=== PATIENT | female | born 1935 | race Caucasian/White ===

== ENCOUNTER 2018-07-20 09:41 | Emergency (ER) | payer MEDICARE, BC ==
[2018-07-20 10:03] VITALS: RESP 16; TEMP 97.8
--- NOTE | 2018-07-20 10:13 | ED ---
SOB HPI - General Chief Complaint: Shortness of Breath Stated Complaint: KHANG Time Seen by Provider: 07/20/18 09:54 Source: patient Mode of arrival: wheelchair Limitations: no limitations - History of Present Illness Initial Comments: Patient is an 83-year-old woman who presents to be evaluated for shortness of breath. She states that her breathing has not felt normal for approximately 2 weeks though she notes that it may have been worse over the course of last night. She states that it feels like she has to take of deep breath. The patient does note she saw Dr. Kuhn, her primary physician yesterday, and was told that everything seemed okay. She does note that it feels worse if she exerts herself. She states that when she is just sitting and does not seem so bad. The patient denies any associated symptoms. She has not had fever or chills, sinus congestion or cough. She denies chest pain or palpitations. She denies orthopnea. She denies any leg pain or swelling. She has not noted any change in urination or bowel movements, including no dark tarry or bloody stools. MD Complaint: shortness of breath Onset/Timin -: week(s) Consistency: constant Improves With: rest Worsens With: exertion Associated Symptoms: denies other symptoms Treatments Prior to Arrival: none - Related Data Home Medications Medication Instructions Recorded Confirmed Cyanocobalamin [Vitamin B-12] 500 mcg PO DAILY 10/03/13 07/20/18 Aspirin [Adult Low Dose Aspirin EC] 81 mg PO BID 01/10/16 07/20/18 Furosemide [Lasix] 60 mg PO DAILY 03/16/16 07/20/18 Levothyroxine Sodium [Synthroid] 68.5 mcg PO Q48H 03/16/16 07/20/18 ALPRAZolam [Xanax] 0.25 mg PO Q6H PRN 07/20/18 07/20/18 Albuterol Nebulized [Ventolin 2.5 mg INHALATION RT-Q4H PRN 07/20/18 07/20/18 Nebulized] Allopurinol [Zyloprim] 300 mg PO DAILY 07/20/18 07/20/18 Cholecalciferol [Vitamin D3] 1,000 unit PO DAILY 07/20/18 07/20/18 Escitalopram [Lexapro] 10 mg PO DAILY 07/20/18 07/20/18 Levothyroxine Sodium [Synthroid] 137 mcg PO Q48H 07/20/18 07/20/18 Metoprolol Tartrate [Lopressor] 75 mg PO BID 07/20/18 07/20/18 Nitroglycerin Sl Tabs [Nitrostat] 0.4 mg SUBLINGUAL Q5M PRN 07/20/18 07/20/18 Allergies Allergy/AdvReac Type Severity Reaction Status Date / Time [id number] Reductase Allergy Unknown Verified 07/20/18 09:46 Inhibitor Review of Systems ROS Statement: Those systems with pertinent positive or pertinent negative responses have been documented in the HPI. ROS Other: All systems not noted in ROS Statement are negative. Constitutional: Denies: fever, chills, weakness Respiratory: Reports: dyspnea. Denies: cough, wheezes, hemoptysis Cardiovascular: Reports: dyspnea on exertion. Denies: chest pain, palpitations , orthopnea, edema, syncope Gastrointestinal: Denies: abdominal pain, nausea, vomiting, melena, hematochezia Genitourinary: Denies: dysuria, hematuria Musculoskeletal: Denies: back pain Skin: Denies: rash Neurological: Denies: headache, weakness Past Medical History Past Medical History: Atrial Fibrillation, Coronary Artery Disease (CAD), Chest Pain / Angina, COPD, GERD/Reflux, Hyperlipidemia, Myocardial Infarction (non Q- wave), Osteoarthritis (OA), Pneumonia Additional Past Medical History / Comment(s): Recent fall with L rib fx, neuropathy bilateral feet, gout bilateral feet, back pain, sciatica, scoliosis, DJD, hypothyroid, anemia r/t epistaxis, Last Myocardial Infarction Date:: 2012 History of Any Multi-Drug Resistant Organisms: None Reported Past Surgical History: Appendectomy, Back Surgery, Cardiac Ablation, Cholecystectomy, Coronary Bypass/CABG, Heart Catheterization With Stent, Hysterectomy Additional Past Surgical History / Comment(s): laminectomy, Nasal Cauterization 10/01/13, heart stents x's 4 or 5, CABG 4 vessek 1993, LOW, colonoscopy with benign polypectomy, D&C, bilateral cataract removal, R breast benign bx. Past Anesthesia/Blood Transfusion Reactions: Previous Problems w/ Anesthesia Additional Past Anesthesia/Blood Transfusion Reaction / Comment(s): Pt received blood 02/07/12 without reaction after epistaxis. Date of Last Stent Placement:: 03/2013 Past Psychological History: Anxiety, Depression Smoking Status: Former smoker Past Alcohol Use History: Daily Past Drug Use History: None Reported - Past Family History Mother Additional Family Medical History / Comment(s): Mother was a heavy drinker. She lived to be in her 80's Father Family Medical History: No Reported History Additional Family Medical History / Comment(s): Father lived to be in his 80's General Exam Limitations: no limitations General appearance: alert, in no apparent distress Head exam: Present: atraumatic, normocephalic Eye exam: Present: normal appearance. Absent: scleral icterus, conjunctival injection ENT exam: Present: normal oropharynx Respiratory exam: Present: normal lung sounds bilaterally. Absent: respiratory distress, wheezes, rales, rhonchi, stridor Cardiovascular Exam: Present: regular rate, irregular rhythm, normal heart sounds. Absent: systolic murmur, diastolic murmur, rubs, gallop GI/Abdominal exam: Present: soft. Absent: distended, tenderness, guarding, rebound Extremities exam: Present: normal inspection, normal capillary refill. Absent: pedal edema, calf tenderness Back exam: Present: normal inspection. Absent: CVA tenderness (R), CVA tenderness (L) Neurological exam: Present: alert Skin exam: Present: warm, dry, intact, normal color. Absent: rash Course Vital Signs 07/20/18 07/20/18 09:42 10:02 Temperature 97.3 F L 97.8 F Pulse Rate 80 75 Respiratory 24 16 Rate Blood Pressure 112/57 106/62 O2 Sat by Pulse 95 96 Oximetry Medical Decision Making - Lab Data Result diagrams: 07/20/18 10:20 07/20/18 10:20 Lab Results 07/20/18 07/20/18 07/20/18 Range/Units 10:20 10:20 10:20 WBC 7.8 (3.8-10.6) k/uL RBC 4.01 (3.80-5.40) m/uL Hgb 12.6 (11.4-16.0) gm/dL Hct 40.8 (34.0-46.0) % MCV 101.7 H (80.0-100.0) fL MCH 31.4 (25.0-35.0) pg MCHC 30.9 L (31.0-37.0) g/dL RDW 16.3 H (11.5-15.5) % Plt Count 247 (150-450) k/uL Neutrophils % 75 % Lymphocytes % 15 % Monocytes % 5 % Eosinophils % 3 % Basophils % 1 % Neutrophils # 5.9 (1.3-7.7) k/uL Lymphocytes # 1.2 (1.0-4.8) k/uL Monocytes # 0.4 (0-1.0) k/uL Eosinophils # 0.2 (0-0.7) k/uL Basophils # 0.1 (0-0.2) k/uL Hypochromasia Moderate Anisocytosis Slight Macrocytosis Slight PT 9.6 (9.0-12.0) sec INR 0.9 (<1.2) APTT 24.3 (22.0-30.0) sec D-Dimer 0.77 H (<0.60) mg/L FEU Sodium 141 (137-145) mmol/L Potassium 3.9 (3.5-5.1) mmol/L Chloride 104 (98-107) mmol/L Carbon Dioxide 31 H (22-30) mmol/L Anion Gap 6 mmol/L BUN 23 H (7-17) mg/dL Creatinine 1.27 H (0.52-1.04) mg/dL Est GFR (CKD-EPI)AfAm 45 (>60 ml/min/1.73 sqM) Est GFR (CKD-EPI)NonAf 39 (>60 ml/min/1.73 sqM) Glucose 100 H (74-99) mg/dL Calcium 9.7 (8.4-10.2) mg/dL Magnesium 2.3 (1.6-2.3) mg/dL Total Bilirubin 0.6 (0.2-1.3) mg/dL AST 23 (14-36) U/L ALT 26 (9-52) U/L Alkaline Phosphatase 88 (38-126) U/L Troponin I (0.000-0.034) ng/mL NT-Pro-B Natriuret Pep pg/mL Total Protein 6.2 L (6.3-8.2) g/dL Albumin 3.6 (3.5-5.0) g/dL Urine Color Urine Appearance (Clear) Urine pH (5.0-8.0) Ur Specific Bison (1.001-1.035) Urine Protein (Negative) Urine Glucose (UA) (Negative) Urine Ketones (Negative) Urine Blood (Negative) Urine Nitrite (Negative) Urine Bilirubin (Negative) Urine Urobilinogen (<2.0) mg/dL Ur Leukocyte Esterase (Negative) Urine RBC (0-5) /hpf Urine WBC (0-5) /hpf Ur Squamous Epith Cells (0-4) /hpf Urine Bacteria (None) /hpf 07/20/18 07/20/18 07/20/18 Range/Units 10:20 10:20 10:20 WBC (3.8-10.6) k/uL RBC (3.80-5.40) m/uL Hgb (11.4-16.0) gm/dL Hct (34.0-46.0) % MCV (80.0-100.0) fL MCH (25.0-35.0) pg MCHC (31.0-37.0) g/dL RDW (11.5-15.5) % Plt Count (150-450) k/uL Neutrophils % % Lymphocytes % % Monocytes % % Eosinophils % % Basophils % % Neutrophils # (1.3-7.7) k/uL Lymphocytes # (1.0-4.8) k/uL Monocytes # (0-1.0) k/uL Eosinophils # (0-0.7) k/uL Basophils # (0-0.2) k/uL Hypochromasia Anisocytosis Macrocytosis PT (9.0-12.0) sec INR (<1.2) APTT (22.0-30.0) sec D-Dimer (<0.60) mg/L FEU Sodium (137-145) mmol/L Potassium (3.5-5.1) mmol/L Chloride (98-107) mmol/L Carbon Dioxide (22-30) mmol/L Anion Gap mmol/L BUN (7-17) mg/dL Creatinine (0.52-1.04) mg/dL Est GFR (CKD-EPI)AfAm (>60 ml/min/1.73 sqM) Est GFR (CKD-EPI)NonAf (>60 ml/min/1.73 sqM) Glucose (74-99) mg/dL Calcium (8.4-10.2) mg/dL Magnesium (1.6-2.3) mg/dL Total Bilirubin (0.2-1.3) mg/dL AST (14-36) U/L ALT (9-52) U/L Alkaline Phosphatase (38-126) U/L Troponin I 0.030 (0.000-0.034) ng/mL NT-Pro-B Natriuret Pep 1730 pg/mL Total Protein (6.3-8.2) g/dL Albumin (3.5-5.0) g/dL Urine Color Colorless Urine Appearance Clear (Clear) Urine pH 6.5 (5.0-8.0) Ur Specific Bison 1.005 (1.001-1.035) Urine Protein Negative (Negative) Urine Glucose (UA) Negative (Negative) Urine Ketones Negative (Negative) Urine Blood Negative (Negative) Urine Nitrite Negative (Negative) Urine Bilirubin Negative (Negative) Urine Urobilinogen <2.0 (<2.0) mg/dL Ur Leukocyte Esterase Small H (Negative) Urine RBC 1 (0-5) /hpf Urine WBC <1 (0-5) /hpf Ur Squamous Epith Cells 1 (0-4) /hpf Urine Bacteria Many H (None) /hpf - EKG Data -: EKG Interpreted by Nh EKG shows normal: axis (Right axis deviation), intervals (Normal), QRS complexes (Normal) Interpretation: nonspecific ST-T wave changes, other (Atrial fibrillation) Disposition Clinical Impression: Congestive heart failure Disposition: HOME SELF-CARE Condition: Fair Instructions (If sedation given, give patient instructions): Heart Failure (DC) Additional Instructions: As we discussed, follow-up with her doctor. If there is any worsening or if her symptoms recur, return to the emergency department. Is patient prescribed a controlled substance at d/c from ED?: No Referrals: Tiera Kuhn MD [Primary Care Provider] - 1-2 days
[2018-07-20 10:34] LABS: Anisocytosis Slight; Basophils # (A) 0.1 k/uL (0-0.2); Basophils % (A) 1 %; Eosinophils # (A) 0.2 k/uL (0-0.7); Eosinophils % (A) 3 %; HCT 40.8 % (34.0-46.0); HGB 12.6 gm/dL (11.4-16.0); Hypochromasia Moderate; Lymphocytes # (A) 1.2 k/uL (1.0-4.8); Lymphocytes % (A) 15 %; MCH 31.4 pg (25.0-35.0); MCHC 30.9 g/dL (31.0-37.0); MCV 101.7 fL (80.0-100.0); Macrocytosis Slight; Mean Platelet Volume 7.1; Monocytes # (A) 0.4 k/uL (0-1.0); Monocytes % (A) 5 %; Neutrophils # (A) 5.9 k/uL (1.3-7.7); Neutrophils % (A) 75 %; Platelet Count 247 k/uL (150-450); RBC 4.01 m/uL (3.80-5.40); RDW 16.3 % (11.5-15.5); WBC 7.8 k/uL (3.8-10.6)
[2018-07-20 10:52] LABS: Albumin 3.6 g/dL (3.5-5.0); Calcium 9.7 mg/dL (8.4-10.2); Magnesium 2.3 mg/dL (1.6-2.3); Potassium 3.9 mmol/L (3.5-5.1); Total Bilirubin 0.6 mg/dL (0.2-1.3); Total Protein 6.2 g/dL (6.3-8.2)
--- NOTE | 2018-07-20 10:53 | XR ---
EXAMINATION TYPE: XR chest 2V DATE OF EXAM: 07/20/2018 COMPARISON: Chest x-ray March 19, 2016 HISTORY: History of COPD with shortness of breath TECHNIQUE: Frontal and lateral views of the chest are obtained. FINDINGS: Elevated and eventrated anterior aspect right hemidiaphragm is redemonstrated There is cash reconciliation specialist alanna parenchymal change without suspicious focal air space opacity, pleural effusion, or pneumothorax seen. Overlying sternal wires and mediastinal clips are redemonstrated. The cardiac silhouette size i s mildly enlarged. The osseous structures are demineralized. Bilateral glenohumeral joint arthropat hy is present. IMPRESSION: Chronic changes and cardiomegaly without acute pulmonary process.
[2018-07-20 10:59] LABS: Appearance,Urine Clear (Clear); Bacteria,Urine Many /hpf; Bilirubin,Urine Negative (Negative); Blood,Urine Negative (Negative); Color,Urine Colorless; Glucose,Urine (UA) Negative (Negative); Ketones,Urine Negative (Negative); Leukocyte Esterase,Urine Small (Negative); Nitrite,Urine Negative (Negative); PH, Urine 6.5 (5.0-8.0); Protein,Urine Negative (Negative); RBC,Urine 1 /hpf (0-5); Specific Gravity,Urine 1.005 (1.001-1.035); Squamous Epithelial Cell,Urine 1 /hpf (0-4); Urobilinogen,Urine <2.0 mg/dL (<2.0); WBC,Urine <1 /hpf (0-5)
[2018-07-20 11:16] LABS: INR 0.9 (<1.2); Partial Thromboplastin Time 24.3 sec (22.0-30.0); Prothrombin Time 9.6 sec (9.0-12.0)
[2018-07-20 11:20] LABS: D-Dimer 0.77 mg/L FEU (<0.60)
[2018-07-20] MEDS ORDERED: FUROSEMIDE 10 MG/ML 4 ML VIAL IV STA (11:30)
[2018-07-20 12:06] VITALS: BP 120/64; PULSE 68
== END 2018-07-20 12:15 | disposition home or self-care (01) ==
LOC: EC 09:41
DX: I50.9 Heart failure, unspecified (principal); I48.91 Unspecified atrial fibrillation; R94.31 Abnormal electrocardiogram [ECG] [EKG]; I25.119 Atherosclerotic heart disease of native coronary artery with unspecified angina pectoris; J44.9 Chronic obstructive pulmonary disease, unspecified; E03.9 Hypothyroidism, unspecified; M19.90 Unspecified osteoarthritis, unspecified site; I25.2 Old myocardial infarction; M10.9 Gout, unspecified; F32.9 Major depressive disorder, single episode, unspecified; F41.9 Anxiety disorder, unspecified; Z87.891 Personal history of nicotine dependence; Z88.8 Allergy status to other drugs, medicaments and biological substances; Z79.82 Long term (current) use of aspirin; Z79.890 Hormone replacement therapy; Z79.899 Other long term (current) drug therapy; Z95.1 Presence of aortocoronary bypass graft; Z95.5 Presence of coronary angioplasty implant and graft; Z98.890 Other specified postprocedural states
CPT/HCPCS: 36415; 71046; 80053; 81001; 83735; 83880; 84484; 85025; 85379; 85610; 85730; 93005; 96374; 99285

== ENCOUNTER 2018-07-20 19:06 | Inpatient (IN) | payer MEDICARE, BC ==
[2018-07-20 20:46] LABS: Anisocytosis Slight; Basophils # (A) 0.1 k/uL (0-0.2); Basophils % (A) 1 %; Eosinophils # (A) 0.3 k/uL (0-0.7); Eosinophils % (A) 3 %; HCT 42.7 % (34.0-46.0); HGB 13.2 gm/dL (11.4-16.0); Hypochromasia Moderate; Lymphocytes # (A) 1.5 k/uL (1.0-4.8); Lymphocytes % (A) 15 %; MCH 31.4 pg (25.0-35.0); MCHC 30.8 g/dL (31.0-37.0); MCV 101.8 fL (80.0-100.0); Macrocytosis Slight; Monocytes # (A) 0.5 k/uL (0-1.0); Monocytes % (A) 5 %; Neutrophils # (A) 7.3 k/uL (1.3-7.7); Neutrophils % (A) 75 %; Platelet Count 252 k/uL (150-450); RBC 4.19 m/uL (3.80-5.40); RDW 16.3 % (11.5-15.5); WBC 9.8 k/uL (3.8-10.6)
[2018-07-20 20:54] LABS: Albumin 3.9 g/dL (3.5-5.0); Calcium 9.7 mg/dL (8.4-10.2); Magnesium 2.2 mg/dL (1.6-2.3); Potassium 3.9 mmol/L (3.5-5.1); Total Bilirubin 0.6 mg/dL (0.2-1.3); Total Protein 6.6 g/dL (6.3-8.2)
[2018-07-20 21:02] LABS: INR 0.9 (<1.2); Partial Thromboplastin Time 24.3 sec (22.0-30.0); Prothrombin Time 9.9 sec (9.0-12.0)
[2018-07-20] MEDS ORDERED: FUROSEMIDE 10 MG/ML 4 ML VIAL IV STA (21:33)
[2018-07-20] MEDS ORDERED: NALOXONE 0.4 MG/ML 1 ML VIAL IV PRN (22:04)
--- NOTE | 2018-07-20 22:17 | ED ---
General Adult HPI - General Chief complaint: Shortness of Breath Stated complaint: KHANG Time Seen by Provider: 07/20/18 20:29 Source: patient, family, RN notes reviewed, old records reviewed Mode of arrival: wheelchair Limitations: no limitations - History of Present Illness Initial comments: 83-year-old female presents emergency Department with chief complaint of dyspnea. Patient was seen in the emergency department earlier today, diagnosed with congestive heart failure, treated with IV Lasix and requested to be discharged home. She resents with similar symptoms of dyspnea, weight gain. She has history of congestive heart failure and atrial fibrillation. She does report bilateral lower extremity edema. Denies chest pain. Denies abdominal pain. - Related Data Home Medications Medication Instructions Recorded Confirmed Cyanocobalamin [Vitamin B-12] 500 mcg PO DAILY 10/03/13 07/20/18 Aspirin [Adult Low Dose Aspirin EC] 81 mg PO BID 01/10/16 07/20/18 Furosemide [Lasix] 60 mg PO DAILY 03/16/16 07/20/18 Levothyroxine Sodium [Synthroid] 68.5 mcg PO Q48H 03/16/16 07/20/18 ALPRAZolam [Xanax] 0.25 mg PO Q6H PRN 07/20/18 07/20/18 Albuterol Nebulized [Ventolin 2.5 mg INHALATION RT-Q4H PRN 07/20/18 07/20/18 Nebulized] Allopurinol [Zyloprim] 300 mg PO DAILY 07/20/18 07/20/18 Cholecalciferol [Vitamin D3] 1,000 unit PO DAILY 07/20/18 07/20/18 Escitalopram [Lexapro] 10 mg PO DAILY 07/20/18 07/20/18 Levothyroxine Sodium [Synthroid] 137 mcg PO Q48H 07/20/18 07/20/18 Metoprolol Tartrate [Lopressor] 75 mg PO BID 07/20/18 07/20/18 Nitroglycerin Sl Tabs [Nitrostat] 0.4 mg SUBLINGUAL Q5M PRN 07/20/18 07/20/18 Allergies Allergy/AdvReac Type Severity Reaction Status Date / Time [id number] Reductase Allergy Unknown Verified 07/20/18 20:54 Inhibitor Review of Systems ROS Statement: Those systems with pertinent positive or pertinent negative responses have been documented in the HPI. ROS Other: All systems not noted in ROS Statement are negative. Past Medical History Past Medical History: Atrial Fibrillation, Coronary Artery Disease (CAD), Chest Pain / Angina, COPD, GERD/Reflux, Hyperlipidemia, Myocardial Infarction (non Q- wave), Osteoarthritis (OA), Pneumonia Additional Past Medical History / Comment(s): Recent fall with L rib fx, neuropathy bilateral feet, gout bilateral feet, back pain, sciatica, scoliosis, DJD, hypothyroid, anemia r/t epistaxis, Last Myocardial Infarction Date:: 2012 History of Any Multi-Drug Resistant Organisms: None Reported Past Surgical History: Appendectomy, Back Surgery, Cardiac Ablation, Cholecystectomy, Coronary Bypass/CABG, Heart Catheterization With Stent, Hysterectomy Additional Past Surgical History / Comment(s): laminectomy, Nasal Cauterization 10/01/13, heart stents x's 4 or 5, CABG 4 vessek 1993, LOW, colonoscopy with benign polypectomy, D&C, bilateral cataract removal, R breast benign bx. Past Anesthesia/Blood Transfusion Reactions: Previous Problems w/ Anesthesia Additional Past Anesthesia/Blood Transfusion Reaction / Comment(s): Pt received blood 02/07/12 without reaction after epistaxis. Date of Last Stent Placement:: 03/2013 Past Psychological History: Anxiety, Depression Smoking Status: Former smoker Past Alcohol Use History: Daily Past Drug Use History: None Reported - Past Family History Mother Additional Family Medical History / Comment(s): Mother was a heavy drinker. She lived to be in her 80's Father Family Medical History: No Reported History Additional Family Medical History / Comment(s): Father lived to be in his 80's General Exam Limitations: no limitations General appearance: alert, in no apparent distress Head exam: Present: atraumatic, normocephalic Eye exam: Present: normal appearance, PERRL Respiratory exam: Present: rales. Absent: respiratory distress, wheezes Cardiovascular Exam: Present: regular rate, irregular rhythm GI/Abdominal exam: Present: soft. Absent: distended, tenderness, guarding Extremities exam: Present: pedal edema Neurological exam: Present: alert, oriented X3 Psychiatric exam: Present: normal affect, normal mood Skin exam: Present: warm, dry, intact. Absent: cyanosis, diaphoretic Course Vital Signs 07/20/18 07/20/18 07/20/18 20:01 20:52 21:05 Temperature 98.3 F Pulse Rate 79 70 70 Respiratory 18 18 20 Rate Blood Pressure 107/64 124/76 114/67 O2 Sat by Pulse 94 L 97 95 Oximetry EKG Findings - EKG Comments: EKG Findings:: EKG: Atrial fibrillation, rate of 74, QRS duration 94, QTC 412, no ST segment elevation or depression Medical Decision Making - Medical Decision Making 83-year-old female presenting for reevaluation of congestive heart failure. X- ray from earlier in the day reviewed, does show cardiomegaly, no edis pulmonary edema. Patient has normal white blood cell count, stable hemoglobin, creatinine mildly elevated 1.44 BNP elevated 2000 470. Patient started on IV Lasix. She will be admitted for diuresis. Cardiology placed on consult. Echo will be obtained. - Lab Data Result diagrams: 07/20/18 20:33 07/20/18 20:33 Lab Results 07/20/18 07/20/18 07/20/18 Range/Units 20:33 20:33 20:33 WBC 9.8 (3.8-10.6) k/uL RBC 4.19 (3.80-5.40) m/uL Hgb 13.2 (11.4-16.0) gm/dL Hct 42.7 (34.0-46.0) % MCV 101.8 H (80.0-100.0) fL MCH 31.4 (25.0-35.0) pg MCHC 30.8 L (31.0-37.0) g/dL RDW 16.3 H (11.5-15.5) % Plt Count 252 (150-450) k/uL Neutrophils % 75 % Lymphocytes % 15 % Monocytes % 5 % Eosinophils % 3 % Basophils % 1 % Neutrophils # 7.3 (1.3-7.7) k/uL Lymphocytes # 1.5 (1.0-4.8) k/uL Monocytes # 0.5 (0-1.0) k/uL Eosinophils # 0.3 (0-0.7) k/uL Basophils # 0.1 (0-0.2) k/uL Hypochromasia Moderate Anisocytosis Slight Macrocytosis Slight PT (9.0-12.0) sec INR (<1.2) APTT (22.0-30.0) sec Sodium 140 (137-145) mmol/L Potassium 3.9 (3.5-5.1) mmol/L Chloride 102 (98-107) mmol/L Carbon Dioxide 32 H (22-30) mmol/L Anion Gap 6 mmol/L BUN 27 H (7-17) mg/dL Creatinine 1.44 H (0.52-1.04) mg/dL Est GFR (CKD-EPI)AfAm 39 (>60 ml/min/1.73 sqM) Est GFR (CKD-EPI)NonAf 34 (>60 ml/min/1.73 sqM) Glucose 103 H (74-99) mg/dL Calcium 9.7 (8.4-10.2) mg/dL Magnesium 2.2 (1.6-2.3) mg/dL Total Bilirubin 0.6 (0.2-1.3) mg/dL AST 24 (14-36) U/L ALT 29 (9-52) U/L Alkaline Phosphatase 108 (38-126) U/L Troponin I (0.000-0.034) ng/mL NT-Pro-B Natriuret Pep 2470 pg/mL Total Protein 6.6 (6.3-8.2) g/dL Albumin 3.9 (3.5-5.0) g/dL 07/20/18 07/20/18 Range/Units 20:33 20:33 WBC (3.8-10.6) k/uL RBC (3.80-5.40) m/uL Hgb (11.4-16.0) gm/dL Hct (34.0-46.0) % MCV (80.0-100.0) fL MCH (25.0-35.0) pg MCHC (31.0-37.0) g/dL RDW (11.5-15.5) % Plt Count (150-450) k/uL Neutrophils % % Lymphocytes % % Monocytes % % Eosinophils % % Basophils % % Neutrophils # (1.3-7.7) k/uL Lymphocytes # (1.0-4.8) k/uL Monocytes # (0-1.0) k/uL Eosinophils # (0-0.7) k/uL Basophils # (0-0.2) k/uL Hypochromasia Anisocytosis Macrocytosis PT 9.9 (9.0-12.0) sec INR 0.9 (<1.2) APTT 24.3 (22.0-30.0) sec Sodium (137-145) mmol/L Potassium (3.5-5.1) mmol/L Chloride (98-107) mmol/L Carbon Dioxide (22-30) mmol/L Anion Gap mmol/L BUN (7-17) mg/dL Creatinine (0.52-1.04) mg/dL Est GFR (CKD-EPI)AfAm (>60 ml/min/1.73 sqM) Est GFR (CKD-EPI)NonAf (>60 ml/min/1.73 sqM) Glucose (74-99) mg/dL Calcium (8.4-10.2) mg/dL Magnesium (1.6-2.3) mg/dL Total Bilirubin (0.2-1.3) mg/dL AST (14-36) U/L ALT (9-52) U/L Alkaline Phosphatase (38-126) U/L Troponin I 0.023 (0.000-0.034) ng/mL NT-Pro-B Natriuret Pep pg/mL Total Protein (6.3-8.2) g/dL Albumin (3.5-5.0) g/dL Disposition Clinical Impression: Congestive heart failure, Diastolic CHF Disposition: ADMITTED IP TO THIS [facility] Condition: Stable Is patient prescribed a controlled substance at d/c from ED?: No Referrals: Tiera Kuhn MD [Primary Care Provider] - 1-2 days Time of Disposition: 22:17 Decision to Admit Reason: Admit from EC Decision Date: 07/20/18 Decision Time: 22:17
[2018-07-21] MEDS: ACETAMINOPHEN TAB 325 MG TAB PO PRN ×2 (04:47→11:43)
[2018-07-21] MEDS: LEVOTHYROXINE 137 MCG TAB PO SCH (05:38)
[2018-07-21] MEDS: NITROGLYCERIN SL TABS 0.4 MG TAB SUBLINGUAL PRN ×3 (05:46→13:51)
[2018-07-21] MEDS: NITROGLYCERIN OINT 1 INCH/GM PACKET TOPICAL SCH ×3 (07:37→23:25)
[2018-07-21] MEDS: METOPROLOL TARTRATE 50 MG TAB PO SCH ×2 (08:01→20:20)
[2018-07-21] MEDS: ASPIRIN 81 MG PO SCH ×2 (08:03→20:20)
[2018-07-21] MEDS: FUROSEMIDE 10 MG/ML 4 ML VIAL IV SCH ×2 (08:04→20:21)
[2018-07-21 09:09] LABS: Anisocytosis Slight; Basophils # (A) 0.1 k/uL (0-0.2); Basophils % (A) 1 %; Eosinophils # (A) 0.3 k/uL (0-0.7); Eosinophils % (A) 3 %; HCT 38.4 % (34.0-46.0); HGB 12.1 gm/dL (11.4-16.0); Hypochromasia Marked; Lymphocytes # (A) 1.1 k/uL (1.0-4.8); Lymphocytes % (A) 15 %; MCH 32.6 pg (25.0-35.0); MCHC 31.5 g/dL (31.0-37.0); MCV 103.3 fL (80.0-100.0); Macrocytosis Moderate; Mean Platelet Volume 7.2; Monocytes # (A) 0.4 k/uL (0-1.0); Monocytes % (A) 5 %; Neutrophils # (A) 5.5 k/uL (1.3-7.7); Neutrophils % (A) 74 %; Platelet Count 201 k/uL (150-450); RBC 3.72 m/uL (3.80-5.40); RDW 16.2 % (11.5-15.5); WBC 7.4 k/uL (3.8-10.6)
[2018-07-21] MEDS: ESCITALOPRAM 10 MG TAB PO SCH (09:15)
[2018-07-21] MEDS: ALLOPURINOL 300 MG TAB PO SCH (09:15)
[2018-07-21 09:21] LABS: Albumin 3.3 g/dL (3.5-5.0); Calcium 9.4 mg/dL (8.4-10.2); Potassium 4.4 mmol/L (3.5-5.1); Total Bilirubin 0.7 mg/dL (0.2-1.3); Total Protein 5.8 g/dL (6.3-8.2)
--- NOTE | 2018-07-21 09:26 | P.HPIM ---
History of Present Illness H&P Date: 07/21/18 This is a 83-year-old female patient of Dr. Kuhn. Patient presented to ER with complaints of increased shortness of breath. Patient presented to the ER earlier in the day was given IV Lasix and at that time patient requested to be discharged home. Patient reports she went home and did not have any improvement with her shortness of breath. Patient presented back to the emergency room. Patient does have a past medical history of diastolic congestive heart failure, atrial fibrillation which she's not on anticoagulation due to increase risk of bleeding, coronary artery disease, chest pain, GERD, hyperlipidemia, myocardial infarction, osteoarthritis, hypothyroidism, gout, appendectomy, CABG and anxiety. EKG completed showing atrial fibrillation heart rate in the 70s. Chest x-ray completed showing chronic changes and cardiomegaly without acute pulmonary process. BNP 2470. Patient started on IV Lasix and placed on cardiac telemetry. Cardiology service is consulted. 2-D echo has been ordered. Denies chest pain or shortness breath. Patient denies nausea vomiting or diarrhea. Patient denies any urinary burning or frequency Review of Systems Please refer to HPI otherwise unremarkable Past Medical History Past Medical History: Atrial Fibrillation, Coronary Artery Disease (CAD), Chest Pain / Angina, COPD, GERD/Reflux, Hyperlipidemia, Myocardial Infarction (non Q- wave), Osteoarthritis (OA), Pneumonia Additional Past Medical History / Comment(s): recent fall with L rib fx, neuropathy bilateral feet, gout bilateral feet, back pain, sciatica, scoliosis, DJD, hypothyroid, anemia r/t epistaxis, Last Myocardial Infarction Date:: 2012 History of Any Multi-Drug Resistant Organisms: None Reported Past Surgical History: Appendectomy, Back Surgery, Cardiac Ablation, Cholecystectomy, Coronary Bypass/CABG, Heart Catheterization With Stent, Hysterectomy Additional Past Surgical History / Comment(s): laminectomy, Nasal Cauterization 10/01/13, heart stents x's 4 or 5, CABG 4 vessek 1993, LOW, colonoscopy with benign polypectomy, D&C, bilateral cataract removal, R breast benign bx. Past Anesthesia/Blood Transfusion Reactions: Previous Problems w/ Anesthesia Additional Past Anesthesia/Blood Transfusion Reaction / Comment(s): Pt received blood 02/07/12 without reaction after epistaxis. Date of Last Stent Placement:: 03/2013 Past Psychological History: Anxiety, Depression Additional Psychological History / Comment(s): Pt resides alone. She uses a cane to ambulate. She drives. She states she has increased depression lately but is not suicidal- no thoughts or plans. She has been on medication for anxiety and depression in the ast but did not like the way they made her feel or was on them for a week and didn't think they were working. Smoking Status: Former smoker Past Alcohol Use History: Daily Additional Past Alcohol Use History / Comment(s): Pt has a glass of wine each evening. She started smoking in 1956 and quit in 1986. Past Drug Use History: None Reported - Past Family History Mother Additional Family Medical History / Comment(s): Mother was a heavy drinker. She lived to be in her 80's Father Family Medical History: No Reported History Additional Family Medical History / Comment(s): Father lived to be in his 80's Medications and Allergies Home Medications Medication Instructions Recorded Confirmed Type Cyanocobalamin [Vitamin B-12] 500 mcg PO DAILY 10/03/13 07/20/18 History Aspirin [Adult Low Dose Aspirin EC] 81 mg PO BID 01/10/16 07/20/18 History Furosemide [Lasix] 60 mg PO DAILY 03/16/16 07/20/18 History Levothyroxine Sodium [Synthroid] 68.5 mcg PO Q48H 03/16/16 07/20/18 History ALPRAZolam [Xanax] 0.25 mg PO Q6H PRN 07/20/18 07/20/18 History Albuterol Nebulized [Ventolin 2.5 mg INHALATION RT-Q4H PRN 07/20/18 07/20/18 History Nebulized] Allopurinol [Zyloprim] 300 mg PO DAILY 07/20/18 07/20/18 History Cholecalciferol [Vitamin D3] 1,000 unit PO DAILY 07/20/18 07/20/18 History Escitalopram [Lexapro] 10 mg PO DAILY 07/20/18 07/20/18 History Levothyroxine Sodium [Synthroid] 137 mcg PO Q48H 07/20/18 07/20/18 History Metoprolol Tartrate [Lopressor] 75 mg PO BID 07/20/18 07/20/18 History Nitroglycerin Sl Tabs [Nitrostat] 0.4 mg SUBLINGUAL Q5M PRN 07/20/18 07/20/18 History Allergies Allergy/AdvReac Type Severity Reaction Status Date / Time [id number]-[id number] Reductase Allergy Unknown Verified 07/20/18 20:54 Inhibitor Physical Exam Vitals: Vital Signs Temp Pulse Pulse Resp BP BP Pulse Ox 07/21/18 07:30 18 07/21/18 07:00 97.7 F 90 18 100/62 95 07/21/18 05:45 97.8 F 86 18 122/70 97 07/21/18 00:10 97.6 F 82 18 117/61 95 07/20/18 23:00 97.6 F 74 18 115/61 94 L 07/20/18 22:00 67 20 116/64 97 07/20/18 21:05 70 20 114/67 95 07/20/18 20:52 70 18 124/76 97 07/20/18 20:01 98.3 F 79 18 107/64 94 L Intake and Output 07/20/18 07/21/18 07/21/18 22:59 06:59 14:59 Intake Total 240 Balance 240 Intake: Oral 240 Other: # Voids 1 Weight 79.379 kg 81.5 kg Head normocephalic Neck supple Lungs diminished bilaterally Heart regular rate and rhythm S1-S2, no rub or gallop Abdomen is soft nontender nondistended positive bowel sounds no hepatosplenomegaly Extremities no edema Neuro alert and orientated to 3 Results CBC & Chem 7: 07/21/18 08:40 07/20/18 20:33 Labs: Abnormal Lab Results - Last 24 Hours (Table) 07/20/18 07/20/18 07/21/18 Range/Units 20:33 20:33 08:40 RBC 3.72 L (3.80-5.40) m/uL MCV 101.8 H 103.3 H (80.0-100.0) fL MCHC 30.8 L (31.0-37.0) g/dL RDW 16.3 H 16.2 H (11.5-15.5) % Carbon Dioxide 32 H (22-30) mmol/L BUN 27 H (7-17) mg/dL Creatinine 1.44 H (0.52-1.04) mg/dL Glucose 103 H (74-99) mg/dL Thrombosis Risk Factor Assmnt - Choose All That Apply Each Factor Represents 1 point: Abnormal pulmonary function (COPD) Each Risk Factor Represents 3 Points: Age 75 years or older Thrombosis Risk Factor Assessment Total Risk Factor Score: 4 Thrombosis Risk Factor Assessment Level: Moderate Risk Assessment and Plan Assessment: 1. Dyspnea related to acute on chronic diastolic congestive heart failure. Chest x-ray completed in the ER showing chronic changes and cardiomegaly without acute pulmonary process. IV Lasix has been started. Cardiology services have been consulted and 2-D echo ordered 2. History of coronary artery disease with history of CABG and stent placement 3. Chronic atrial fibrillation heart rate well-controlled. Patient not on anticoagulation high-risk of bleeding in the past 4. History of essential hypertension 5. Hypothyroidism. Synthroid resumed 6. Acute on chronic kidney disease. Creatinine 1.44 we'll continue to monitor closely 7. History of hyperlipidemia 8. History of GERD 9. History of COPD. 10. History of anxiety and depression DVT prophylaxis LOVENOX. GI prophylaxis Pepcid Time with Patient: Greater than 30 (Greater than 60% of the total time spent in counseling and coordination of care. I performed an examination of the patient and discussed their management with the Nurse Practitioner. I have reviewed the Nurse Practitioner's notes and agree with the documented findings and plan of care)
[2018-07-21] MEDS: CHOLECALCIFEROL 1,000 UNIT TAB PO SCH (11:43)
[2018-07-21] MEDS: CYANOCOBALAMIN 500 MCG TAB PO SCH (11:43)
[2018-07-21] MEDS: ALBUTEROL NEBULIZED 2.5 MG/3 ML INHALATION PRN (11:51)
[2018-07-21 13:19] VITALS: BMI 31.8
[2018-07-21] MEDS: FAMOTIDINE 20 MG TAB PO SCH (13:52)
--- NOTE | 2018-07-21 19:26 | ECHOF ---
Referral Reason:chf MEASUREMENTS -------- HEIGHT: 160.0 cm WEIGHT: 81.2 kg BP: IVSd: 1.4 cm (0.6 - 1.1) LVIDd: 4.1 cm (3.9 - 5.3) LVPWd: 1.5 cm (0.6 - 1.1) IVSs: 1.5 cm LVIDs: 3.6 cm LVPWs: 1.5 cm LA Diam: 5.1 cm (2.7 - 3.8) LAESV Index (A-L): 51.90 ml/m Ao Diam: 3.3 cm (2.0 - 3.7) AV Cusp: 1.4 cm (1.5 - 2.6) LA Diam: 5.2 cm (2.7 - 3.8) MV EXCURSION: 18.742 mm (> 18.000) MV EF SLOPE: 138 mm/s (70 - 150) EPSS: 0.6 cm MV E Ruben: 1.25 m/s MV DecT: 164 ms MV A Ruben: 0.52 m/s MV E/A Ratio: 2.41 RAP: 5.00 mmHg RVSP: 37.39 mmHg FINDINGS -------- Sinus rhythm. This was a technically adequate study. The left ventricular size is normal. There is moderate concentric left ventricular hypertrophy. O verall left ventricular systolic function is normal with, an EF between 55 - 60 %. The right ventricle is normal in size. The left atrium is markedly dilated. LA is severely dilated >40 ml/m2 The right atrial size is normal. There is mild aortic valve sclerosis. There is no evidence of aortic regurgitation. The mitral valve leaflets are mildly thickened. Mild mitral annular calcification present. Modera te mitral regurgitation is present. Mild tricuspid regurgitation present. There is no evidence of pulmonary hypertension. The right v entricular systolic pressure, as measured by Doppler, is 37.39mmHg. The pulmonic valve was not well visualized. The aortic root size is normal. There is no pericardial effusion. CONCLUSIONS -------- 1. The left ventricular size is normal. 2. There is moderate concentric left ventricular hypertrophy. 3. Overall left ventricular systolic function is normal with, an EF between 55 - 60 %. 4. The right ventricle is normal in size. 5. The left atrium is markedly dilated. 6. LA is severely dilated >40 ml/m2 7. The right atrial size is normal. 8. There is mild aortic valve sclerosis. 9. The mitral valve leaflets are mildly thickened. 10. Mild mitral annular calcification present. 11. Moderate mitral regurgitation is present. 12. Mild tricuspid regurgitation present. 13. There is no evidence of pulmonary hypertension. 14. The right ventricular systolic pressure, as measured by Doppler, is 37.39mmHg. 15. The pulmonic valve was not well visualized. 16. The aortic root size is normal. 17. There is no pericardial effusion. DIRECTOR SUPPLY CHAIN: Brielle Medellin RDCS
--- NOTE | 2018-07-21 20:09 | P.CRDCN ---
History of Present Illness Consult date: 07/21/18 Chief complaint: Shortness of breath History of present illness: This is a pleasant 83-year-old female patient who follows with Dr. Parada in the office as an outpatient with a past medical history significant for coronary artery disease, chronic persistent atrial fibrillation, hypertension, and dyslipidemia, presented to the hospital complaining of shortness of breath. The patient was in her usual state of health until about a few days ago when she started experiencing exertional dyspnea without orthopnea or PND. No bilateral lower extremities edema. She stated that she has been taking all her medications including her oral Lasix as an outpatient but she was not very compliant with her diet and she has been eating some salt as well as a lot of chocolate lately. She gained significant amount of weight according to her. No chest pain or chest discomfort. No feeling of heart racing or fluttering, dizziness or lightheadedness, or syncope. The EKG showed atrial fibrillation with controlled heart rate and diffuse nonspecific ST or T-wave abnormalities. The cardiac enzymes were checked and came in to be unremarkable. The echocardiogram revealed normal LV function with moderate mitral regurgitation. The patient was admitted to the hospital and she was started on Lasix IV with improvement in her shortness of breath. Please note that the patient is not on any oral anticoagulation for unknown reason at this point. Past Medical History Past Medical History: Atrial Fibrillation, Coronary Artery Disease (CAD), Chest Pain / Angina, COPD, GERD/Reflux, Hyperlipidemia, Myocardial Infarction (non Q- wave), Osteoarthritis (OA), Pneumonia Additional Past Medical History / Comment(s): recent fall with L rib fx, neuropathy bilateral feet, gout bilateral feet, back pain, sciatica, scoliosis, DJD, hypothyroid, anemia r/t epistaxis, Last Myocardial Infarction Date:: 2012 History of Any Multi-Drug Resistant Organisms: None Reported Past Surgical History: Appendectomy, Back Surgery, Cardiac Ablation, Cholecystectomy, Coronary Bypass/CABG, Heart Catheterization With Stent, Hysterectomy Additional Past Surgical History / Comment(s): laminectomy, Nasal Cauterization 10/01/13, heart stents x's 4 or 5, CABG 4 vessek 1993, LOW, colonoscopy with benign polypectomy, D&C, bilateral cataract removal, R breast benign bx. Past Anesthesia/Blood Transfusion Reactions: Previous Problems w/ Anesthesia Additional Past Anesthesia/Blood Transfusion Reaction / Comment(s): Pt received blood 9/17/12 without reaction after epistaxis. Date of Last Stent Placement:: 03/2013 Past Psychological History: Anxiety, Depression Additional Psychological History / Comment(s): Pt resides alone. She uses a cane to ambulate. She drives. She states she has increased depression lately but is not suicidal- no thoughts or plans. She has been on medication for anxiety and depression in the ast but did not like the way they made her feel or was on them for a week and didn't think they were working. Smoking Status: Former smoker Past Alcohol Use History: Daily Additional Past Alcohol Use History / Comment(s): Pt has a glass of wine each evening. She started smoking in 1956 and quit in 1986. Past Drug Use History: None Reported - Past Family History Mother Additional Family Medical History / Comment(s): Mother was a heavy drinker. She lived to be in her 80's Father Family Medical History: No Reported History Additional Family Medical History / Comment(s): Father lived to be in his 80's Medications and Allergies Home Medications Medication Instructions Recorded Confirmed Type Cyanocobalamin [Vitamin B-12] 500 mcg PO DAILY 10/03/13 07/20/18 History Aspirin [Adult Low Dose Aspirin EC] 81 mg PO BID 01/10/16 07/20/18 History Furosemide [Lasix] 60 mg PO DAILY 03/16/16 07/20/18 History Levothyroxine Sodium [Synthroid] 68.5 mcg PO Q48H 03/16/16 07/20/18 History ALPRAZolam [Xanax] 0.25 mg PO Q6H PRN 07/20/18 07/20/18 History Albuterol Nebulized [Ventolin 2.5 mg INHALATION RT-Q4H PRN 07/20/18 07/20/18 History Nebulized] Allopurinol [Zyloprim] 300 mg PO DAILY 07/20/18 07/20/18 History Cholecalciferol [Vitamin D3] 1,000 unit PO DAILY 07/20/18 07/20/18 History Escitalopram [Lexapro] 10 mg PO DAILY 07/20/18 07/20/18 History Levothyroxine Sodium [Synthroid] 137 mcg PO Q48H 07/20/18 07/20/18 History Metoprolol Tartrate [Lopressor] 75 mg PO BID 07/20/18 07/20/18 History Nitroglycerin Sl Tabs [Nitrostat] 0.4 mg SUBLINGUAL Q5M PRN 07/20/18 07/20/18 History Allergies Allergy/AdvReac Type Severity Reaction Status Date / Time [id number]-Soj-Aby Reductase Allergy Unknown Verified 07/20/18 20:54 Inhibitor Physical Exam Vitals: Vital Signs Temp Pulse Pulse Resp BP BP Pulse Ox 07/21/18 16:00 16 07/21/18 14:34 97.7 F 73 16 100/61 90 L 07/21/18 12:01 64 07/21/18 11:51 64 07/21/18 07:30 18 07/21/18 07:00 97.7 F 90 18 100/62 95 07/21/18 05:45 97.8 F 86 18 122/70 97 07/21/18 00:10 97.6 F 82 18 117/61 95 07/20/18 23:00 97.6 F 74 18 115/61 94 L 07/20/18 22:00 67 20 116/64 97 07/20/18 21:05 70 20 114/67 95 07/20/18 20:52 70 18 124/76 97 Intake and Output 07/21/18 07/21/18 07/21/18 06:59 14:59 22:59 Intake Total 860 240 Balance 860 240 Intake: Oral 860 240 Other: # Voids 1 2 # Bowel Movements 0 Weight 81.5 kg 81.5 kg - Constitutional General appearance: no acute distress - Respiratory Respiratory: bilateral: diminished - Cardiovascular Rhythm: irregularly irregular Heart sounds: normal: S1, S2 Results 07/21/18 08:40 07/21/18 08:40 Cardiac Enzymes 07/20/18 07/20/18 07/21/18 Range/Units 20:33 20:33 08:08 AST 24 (14-36) U/L Troponin I 0.023 0.031 (0.000-0.034) ng/mL 07/21/18 Range/Units 08:40 AST 19 (14-36) U/L Troponin I (0.000-0.034) ng/mL Coagulation 07/20/18 Range/Units 20:33 PT 9.9 (9.0-12.0) sec APTT 24.3 (22.0-30.0) sec CBC 07/20/18 07/21/18 Range/Units 20:33 08:40 WBC 9.8 7.4 (3.8-10.6) k/uL RBC 4.19 3.72 L (3.80-5.40) m/uL Hgb 13.2 12.1 (11.4-16.0) gm/dL Hct 42.7 38.4 (34.0-46.0) % Plt Count 252 201 (150-450) k/uL Comprehensive Metabolic Panel 07/20/18 07/21/18 Range/Units 20:33 08:40 Sodium 140 140 (137-145) mmol/L Potassium 3.9 4.4 (3.5-5.1) mmol/L Chloride 102 102 (98-107) mmol/L Carbon Dioxide 32 H 33 H (22-30) mmol/L BUN 27 H 32 H (7-17) mg/dL Creatinine 1.44 H 1.64 H (0.52-1.04) mg/dL Glucose 103 H 96 (74-99) mg/dL Calcium 9.7 9.4 (8.4-10.2) mg/dL AST 24 19 (14-36) U/L ALT 29 24 (9-52) U/L Alkaline Phosphatase 108 75 (38-126) U/L Total Protein 6.6 5.8 L (6.3-8.2) g/dL Albumin 3.9 3.3 L (3.5-5.0) g/dL Current Medications Generic Name Dose Route Start Last Admin Trade Name Freq PRN Reason Stop Dose Admin Acetaminophen 650 mg 07/20/18 22:04 07/21/18 11:43 Tylenol Tab PO 650 mg Q6HR PRN Administration Mild Pain or Fever > 100.5 Albuterol Sulfate 2.5 mg 07/21/18 08:14 07/21/18 11:51 Ventolin Nebulized INHALATION 2.5 mg RT-Q4H PRN Administration Cough Allopurinol 300 mg 07/21/18 09:00 07/21/18 09:15 Zyloprim PO 300 mg DAILY MAIKOL Administration Alprazolam 0.25 mg 07/21/18 08:14 Xanax PO Q6H PRN Anxiety Aspirin 81 mg 07/21/18 09:00 07/21/18 08:03 Aspirin PO 81 mg BID COUNTS INCLUDE 234 BEDS AT THE [facility] Administration Cholecalciferol 1,000 unit 07/21/18 12:00 07/21/18 11:43 Vitamin D3 PO 1,000 unit DAILY@1200 COUNTS INCLUDE 234 BEDS AT THE [facility] Administration Cyanocobalamin 500 mcg 07/21/18 12:00 07/21/18 11:43 Vitamin B-12 PO 500 mcg DAILY@1200 COUNTS INCLUDE 234 BEDS AT THE [facility] Administration Enoxaparin Sodium 40 mg 07/22/18 09:00 Lovenox SQ DAILY COUNTS INCLUDE 234 BEDS AT THE [facility] Escitalopram Oxalate 10 mg 07/21/18 09:00 07/21/18 09:15 Lexapro PO 10 mg DAILY COUNTS INCLUDE 234 BEDS AT THE [facility] Administration Famotidine 20 mg 07/21/18 13:44 07/21/18 13:52 Pepcid PO 20 mg DAILY COUNTS INCLUDE 234 BEDS AT THE [facility] Administration Furosemide 40 mg 07/21/18 09:00 07/21/18 08:04 Lasix IV Not Given Q12HR COUNTS INCLUDE 234 BEDS AT THE [facility] Levothyroxine Sodium 68.5 mcg 07/21/18 06:30 07/21/18 05:38 Synthroid PO 68.5 mcg Q48H COUNTS INCLUDE 234 BEDS AT THE [facility] Administration Levothyroxine Sodium 137 mcg 07/22/18 06:30 Synthroid PO Q48H COUNTS INCLUDE 234 BEDS AT THE [facility] Metoprolol Tartrate 75 mg 07/21/18 09:00 07/21/18 08:01 Lopressor PO 75 mg BID COUNTS INCLUDE 234 BEDS AT THE [facility] Administration Naloxone HCl 0.2 mg 07/20/18 22:04 Narcan IV Q2M PRN Opioid Reversal Nitroglycerin 0.4 mg 07/20/18 22:08 07/21/18 13:51 Nitrostat SUBLINGUAL 0.4 mg Q5M PRN Administration Chest Pain Nitroglycerin 1 inch 07/21/18 08:00 07/21/18 17:22 Nitro-Bid Oint TOPICAL 1 inch Q8HR COUNTS INCLUDE 234 BEDS AT THE [facility] Administration Intake and Output 07/21/18 07/21/18 07/21/18 06:59 14:59 22:59 Intake Total 860 240 Balance 860 240 Intake: Oral 860 240 Other: # Voids 1 2 # Bowel Movements 0 Weight 81.5 kg 81.5 kg Patient Weight 07/22/18 06:59 Weight 81.5 kg 07/21/18 08:40 07/21/18 08:40 Assessment and Plan Assessment: Assessment #1 congestive heart failure exacerbation secondary to diastole dysfunction, acute on chronic. #2 coronary artery disease and prior coronary revascularization #3 chronic persistent atrial fibrillation #4 multiple comorbid conditions. Plan #1 the patient was ruled out for acute coronary event. #2 continue the IV Lasix for at least additional 24 hours #3 continue monitor the kidney function and electrolytes #4 the echocardiogram was reviewed and revealed normal LV function was moderate MR #5 follow-up with the patient. Thank you for allowing us participate in her care
[2018-07-22] MEDS: LEVOTHYROXINE 137 MCG TAB PO SCH (05:31)
[2018-07-22 07:09] LABS: Anisocytosis Slight; Basophils # (A) 0.1 k/uL (0-0.2); Basophils % (A) 1 %; Eosinophils # (A) 0.3 k/uL (0-0.7); Eosinophils % (A) 4 %; HCT 38.2 % (34.0-46.0); HGB 11.7 gm/dL (11.4-16.0); Hypochromasia Slight; Lymphocytes # (A) 1.5 k/uL (1.0-4.8); Lymphocytes % (A) 18 %; MCH 31.5 pg (25.0-35.0); MCHC 30.6 g/dL (31.0-37.0); MCV 103.2 fL (80.0-100.0); Macrocytosis Moderate; Mean Platelet Volume 6.5; Monocytes # (A) 0.4 k/uL (0-1.0); Monocytes % (A) 5 %; Neutrophils # (A) 5.8 k/uL (1.3-7.7); Neutrophils % (A) 71 %; Platelet Count 216 k/uL (150-450); RDW 16.5 % (11.5-15.5); WBC 8.2 k/uL (3.8-10.6)
[2018-07-22 07:29] LABS: Albumin 3.3 g/dL (3.5-5.0); Calcium 9.1 mg/dL (8.4-10.2); Potassium 3.9 mmol/L (3.5-5.1); Total Bilirubin 0.8 mg/dL (0.2-1.3); Total Protein 5.6 g/dL (6.3-8.2)
[2018-07-22] MEDS ORDERED: FUROSEMIDE 10 MG/ML 2 ML VIAL IV ONE (08:47)
[2018-07-22] MEDS: FUROSEMIDE 10 MG/ML 4 ML VIAL IV SCH (08:48)
[2018-07-22] MEDS: FAMOTIDINE 20 MG TAB PO SCH (08:49)
[2018-07-22] MEDS: ASPIRIN 81 MG PO SCH ×2 (08:49→21:20)
[2018-07-22] MEDS: ESCITALOPRAM 10 MG TAB PO SCH (08:49)
[2018-07-22] MEDS: METOPROLOL TARTRATE 50 MG TAB PO SCH ×2 (08:49→21:20)
[2018-07-22] MEDS: ALLOPURINOL 300 MG TAB PO SCH (08:49)
[2018-07-22] MEDS: ALPRAZolam 0.25 MG TAB PO PRN ×2 (08:49→18:08)
[2018-07-22] MEDS: ENOXAPARIN 40 MG/0.4 ML SYRINGE SQ SCH (08:50)
[2018-07-22] MEDS: NITROGLYCERIN OINT 1 INCH/GM PACKET TOPICAL SCH ×3 (08:50→23:59)
[2018-07-22] MEDS ORDERED: FAMOTIDINE 20 MG TAB PO SCH (09:00)
[2018-07-22] MEDS: CYANOCOBALAMIN 500 MCG TAB PO SCH (12:09)
[2018-07-22] MEDS: CHOLECALCIFEROL 1,000 UNIT TAB PO SCH (12:09)
[2018-07-22] MEDS: ALBUTEROL NEBULIZED 2.5 MG/3 ML INHALATION PRN (14:13)
--- NOTE | 2018-07-22 14:13 | P.PN ---
Subjective Progress Note Date: 07/22/18 This is a 83-year-old female patient of Dr. Kuhn. Patient presented to ER with complaints of increased shortness of breath. Patient presented to the ER earlier in the day was given IV Lasix and at that time patient requested to be discharged home. Patient reports she went home and did not have any improvement with her shortness of breath. Patient presented back to the emergency room. Patient does have a past medical history of diastolic congestive heart failure, atrial fibrillation which she's not on anticoagulation due to increase risk of bleeding, coronary artery disease, chest pain, GERD, hyperlipidemia, myocardial infarction, osteoarthritis, hypothyroidism, gout, appendectomy, CABG and anxiety. EKG completed showing atrial fibrillation heart rate in the 70s. Chest x-ray completed showing chronic changes and cardiomegaly without acute pulmonary process. BNP 2470. Patient started on IV Lasix and placed on cardiac telemetry. Cardiology service is consulted. 2-D echo has been ordered. Denies chest pain or shortness breath. Patient denies nausea vomiting or diarrhea. Patient denies any urinary burning or frequency On 07/22/2018 patient is alert and oriented 3 in no apparent distress she is still complaining of shortness of breath with any activity otherwise she denies any complaints there is no chest pain no palpitation there is no fever or chills no headache no dizziness no cough no nausea or vomiting no abdominal pain no diarrhea and no urinary symptoms Objective - Vital Signs Vital signs: Vital Signs Temp 97.6 F 07/22/18 07:00 Pulse 84 07/22/18 07:00 Resp 18 07/22/18 07:00 BP 106/66 07/22/18 07:00 Pulse Ox 96 07/22/18 07:00 Intake & Output 07/21/18 07/22/18 07/22/18 18:59 06:59 18:59 Intake Total 1100 560 Balance 1100 560 Weight 81.5 kg Intake: Oral 1100 560 Other: # Voids 2 # Bowel Movements 0 - Exam In general patient is alert and oriented 3 in no apparent distress Head normocephalic Neck supple no JVD no goiter Lungs diminished bilaterally no crackles or wheezing Heart regular rate and rhythm S1-S2, no rub or gallop Abdomen is soft nontender nondistended positive bowel sounds no hepatosplenomegaly Extremities no edema no cyanosis or clubbing Neuro no gross focal neurological deficit - Labs CBC & Chem 7: 07/22/18 06:30 07/22/18 06:30 Labs: Abnormal Lab Results - Last 24 Hours (Table) 07/22/18 07/22/18 Range/Units 06:30 06:30 RBC 3.70 L (3.80-5.40) m/uL MCV 103.2 H (80.0-100.0) fL MCHC 30.6 L (31.0-37.0) g/dL RDW 16.5 H (11.5-15.5) % Carbon Dioxide 31 H (22-30) mmol/L BUN 32 H (7-17) mg/dL Creatinine 1.51 H (0.52-1.04) mg/dL Total Protein 5.6 L (6.3-8.2) g/dL Albumin 3.3 L (3.5-5.0) g/dL Assessment and Plan Plan: 1. Dyspnea related to acute on chronic diastolic congestive heart failure. Chest x-ray completed in the ER showing chronic changes and cardiomegaly without acute pulmonary process. IV Lasix has been started. Cardiology services have been consulted and 2-D echo ordered 2. History of coronary artery disease with history of CABG and stent placement 3. Chronic atrial fibrillation heart rate well-controlled. Patient not on anticoagulation high-risk of bleeding in the past 4. History of essential hypertension 5. Hypothyroidism. Synthroid resumed 6. Acute on chronic kidney disease. Creatinine 1.44 we'll continue to monitor closely baseline creatinine 1.2 on 07/20/2018 Will check kidney ultrasound change Lasix to 20 mg IV every 8 hours 7. History of hyperlipidemia 8. History of GERD 9. History of COPD. 10. History of anxiety and depression DVT prophylaxis LOVENOX. GI prophylaxis Pepcid
--- NOTE | 2018-07-22 16:06 | US ---
EXAMINATION TYPE: US kidneys/renal and bladder DATE OF EXAM: 07/22/2018 COMPARISON: NONE CLINICAL HISTORY: acute on chronic renal failure. EXAM MEASUREMENTS: Right Kidney: 8.1 x 4.6 x 3.9 cm Left Kidney: 9.6 x 5.4 x 4.7 cm Technically difficult scan due to body habitus and overlying bowel gas. Right Kidney: atrophied Left Kidney: No hydronephrosis or masses seen Bladder: wnl Bilateral Jets seen: No IMPRESSION: Right kidney is smaller than the left and consistent with some degree of atrophy. No evidence of lana l mass or obstruction.
[2018-07-22] MEDS: FUROSEMIDE 10 MG/ML 2 ML VIAL IV SCH ×2 (17:23→23:59)
[2018-07-23] MEDS: LEVOTHYROXINE 137 MCG TAB PO SCH (05:48)
[2018-07-23] MEDS: ASPIRIN 81 MG PO SCH ×2 (07:04→21:12)
[2018-07-23] MEDS: ALLOPURINOL 300 MG TAB PO SCH (07:04)
[2018-07-23] MEDS: FAMOTIDINE 20 MG TAB PO SCH (07:04)
[2018-07-23] MEDS: METOPROLOL TARTRATE 50 MG TAB PO SCH ×2 (07:05→21:12)
[2018-07-23] MEDS: ESCITALOPRAM 10 MG TAB PO SCH (07:05)
[2018-07-23] MEDS: ENOXAPARIN 40 MG/0.4 ML SYRINGE SQ SCH (07:09)
[2018-07-23] MEDS: FUROSEMIDE 10 MG/ML 2 ML VIAL IV SCH ×3 (07:09→23:54)
[2018-07-23] MEDS: ACETAMINOPHEN TAB 325 MG TAB PO PRN ×2 (08:00→17:47)
[2018-07-23 08:26] LABS: Anisocytosis Slight; Basophils # (A) 0.1 k/uL (0-0.2); Basophils % (A) 1 %; Eosinophils # (A) 0.3 k/uL (0-0.7); Eosinophils % (A) 5 %; HGB 11.6 gm/dL (11.4-16.0); Hypochromasia Moderate; Lymphocytes # (A) 1.3 k/uL (1.0-4.8); Lymphocytes % (A) 21 %; MCHC 31.3 g/dL (31.0-37.0); MCV 102.3 fL (80.0-100.0); Macrocytosis Moderate; Mean Platelet Volume 7.4; Monocytes # (A) 0.3 k/uL (0-1.0); Monocytes % (A) 5 %; Neutrophils # (A) 4.1 k/uL (1.3-7.7); Neutrophils % (A) 67 %; Platelet Count 188 k/uL (150-450); RBC 3.62 m/uL (3.80-5.40); RDW 16.2 % (11.5-15.5); WBC 6.2 k/uL (3.8-10.6)
[2018-07-23] MEDS: ALBUTEROL NEBULIZED 2.5 MG/3 ML INHALATION PRN (08:30)
[2018-07-23 08:37] LABS: Albumin 3.2 g/dL (3.5-5.0); Calcium 9.2 mg/dL (8.4-10.2); Potassium 3.9 mmol/L (3.5-5.1); Total Bilirubin 0.7 mg/dL (0.2-1.3); Total Protein 5.6 g/dL (6.3-8.2)
--- NOTE | 2018-07-23 11:09 | P.PN ---
Subjective Progress Note Date: 07/23/18 This is a 83-year-old female who follows Dr. Parada with past medical history of coronary artery disease and chronic persistent atrial fibrillation who presented to the hospital with complaints of shortness of breath and evidence of CHF. Patient was treated with IV diuretics. Patient seemed to be feeling better. She is not having difficulty breathing. She she wants to go home. She claims that her stools are C[place]. Doesn't seem to be jaundiced. Lab work showed improving kidney function with a creatinine of 1.45. Within switch to by mouth Lasix. Patient could be discharged home within next 24 hours Objective - Vital Signs Vital signs: Vital Signs Temp 97.5 F L 07/23/18 06:58 Pulse 82 07/23/18 08:40 Resp 18 07/23/18 07:00 BP 94/54 07/23/18 06:58 Pulse Ox 94 L 07/23/18 06:58 Intake & Output 07/22/18 07/23/18 07/23/18 18:59 06:59 18:59 Intake Total 240 Balance 240 Weight 80.4 kg Intake: Oral 240 Other: Voiding Method Toilet Toilet # Voids 2 1 - Exam GENERAL EXAM: Patient is alert and oriented and doesn't appear to be in any acute distress HEENT: Normocephalic. Normal reaction of pupils, equal size, normal range of extraocular motion. No erythema or exudates in the throat. NECK: No masses, no nuchal rigidity. CHEST: No chest wall deformity. LUNGS: Equal air entry with no crackles or wheeze. HEART: S1 and S2 normal with no audible mumurs or gallops. Regular rhythm, femorals equal on both sides.. ABDOMEN: No hepatosplenomegaly, normal bowel sounds, no guarding or rigidity. SKIN: No rashes CENTRAL NERVOUS SYSTEM: No focal deficits. EXTREMITIES: No cyanosis, clubbing or edema. - Labs CBC & Chem 7: 07/23/18 06:52 07/23/18 06:52 Labs: Abnormal Lab Results - Last 24 Hours (Table) 07/23/18 07/23/18 Range/Units 06:52 06:52 RBC 3.62 L (3.80-5.40) m/uL MCV 102.3 H (80.0-100.0) fL RDW 16.2 H (11.5-15.5) % Carbon Dioxide 33 H (22-30) mmol/L BUN 31 H (7-17) mg/dL Creatinine 1.45 H (0.52-1.04) mg/dL Total Protein 5.6 L (6.3-8.2) g/dL Albumin 3.2 L (3.5-5.0) g/dL Assessment and Plan (1) Congestive heart failure Current Visit: Yes Status: Acute Code(s): I50.9 - HEART FAILURE, UNSPECIFIED SNOMED Code(s): 88289738 (2) CAD (coronary artery disease) Current Visit: No Status: Acute Code(s): I25.10 - ATHSCL HEART DISEASE OF [place] CORONARY ARTERY W/O ANG PCTRS SNOMED Code(s): 03615090 (3) Chronic a-fib Current Visit: No Status: Acute Code(s): I48.2 - CHRONIC ATRIAL FIBRILLATION SNOMED Code(s): 813086859 (4) HTN (hypertension) Current Visit: No Status: Acute Code(s): I10 - ESSENTIAL (PRIMARY) HYPERTENSION SNOMED Code(s): 18634497 (5) Hx of CABG Current Visit: No Status: Acute Code(s): Z95.1 - PRESENCE OF AORTOCORONARY BYPASS GRAFT SNOMED Code(s): 996284209 Plan: May switch to by mouth Lasix. Continue rest of the medication. Increase activity. May be discharged home within next 24 hours. We'll see her as needed
[2018-07-23] MEDS: NITROGLYCERIN OINT 1 INCH/GM PACKET TOPICAL SCH ×3 (12:01→23:55)
[2018-07-23] MEDS: CHOLECALCIFEROL 1,000 UNIT TAB PO SCH (12:01)
[2018-07-23] MEDS: CYANOCOBALAMIN 500 MCG TAB PO SCH (12:01)
--- NOTE | 2018-07-23 12:33 | P.PN ---
Subjective Progress Note Date: 07/23/18 This is a 83-year-old female patient of Dr. Kuhn. Patient presented to ER with complaints of increased shortness of breath. Patient presented to the ER earlier in the day was given IV Lasix and at that time patient requested to be discharged home. Patient reports she went home and did not have any improvement with her shortness of breath. Patient presented back to the emergency room. Patient does have a past medical history of diastolic congestive heart failure, atrial fibrillation which she's not on anticoagulation due to increase risk of bleeding, coronary artery disease, chest pain, GERD, hyperlipidemia, myocardial infarction, osteoarthritis, hypothyroidism, gout, appendectomy, CABG and anxiety. EKG completed showing atrial fibrillation heart rate in the 70s. Chest x-ray completed showing chronic changes and cardiomegaly without acute pulmonary process. BNP 2470. Patient started on IV Lasix and placed on cardiac telemetry. Cardiology service is consulted. 2-D echo has been ordered. Denies chest pain or shortness breath. Patient denies nausea vomiting or diarrhea. Patient denies any urinary burning or frequency On 07/22/2018 patient is alert and oriented 3 in no apparent distress she is still complaining of shortness of breath with any activity otherwise she denies any complaints there is no chest pain no palpitation there is no fever or chills no headache no dizziness no cough no nausea or vomiting no abdominal pain no diarrhea and no urinary symptoms. On 07/23/2018 patient was seen and examined she is feeling better shortness of breath is improving otherwise she denies any complaints there is no fever or chills no headache or dizziness no chest pain no palpitation no cough no nausea or vomiting no abdominal pain no diarrhea and no urinary symptoms, kidney and bladder ultrasound done and was reviewed and revealed evidence of atrophy in the right kidney without evidence of mass or obstruction, patient denies any knowledge of any previous kidney disease history. At this time will consult nephrology for evaluation. Objective - Vital Signs Vital signs: Vital Signs Temp 97.5 F L 07/23/18 06:58 Pulse 82 07/23/18 08:40 Resp 18 07/23/18 07:00 BP 94/54 07/23/18 06:58 Pulse Ox 94 L 07/23/18 06:58 Intake & Output 07/22/18 07/23/18 07/23/18 18:59 06:59 18:59 Intake Total 240 Balance 240 Weight 80.4 kg Intake: Oral 240 Other: Voiding Method Toilet Toilet # Voids 2 1 - Exam In general patient is alert and oriented 3 in no apparent distress Head normocephalic and atraumatic Neck supple no JVD no goiter Lungs diminished bilaterally no crackles or wheezing Heart regular rate and rhythm S1-S2, no rub or gallop Abdomen is soft nontender nondistended positive bowel sounds no hepatosplenomegaly Extremities no edema no cyanosis or clubbing Neuro no gross focal neurological deficit - Labs CBC & Chem 7: 07/23/18 06:52 07/23/18 06:52 Labs: Abnormal Lab Results - Last 24 Hours (Table) 07/23/18 07/23/18 Range/Units 06:52 06:52 RBC 3.62 L (3.80-5.40) m/uL MCV 102.3 H (80.0-100.0) fL RDW 16.2 H (11.5-15.5) % Carbon Dioxide 33 H (22-30) mmol/L BUN 31 H (7-17) mg/dL Creatinine 1.45 H (0.52-1.04) mg/dL Total Protein 5.6 L (6.3-8.2) g/dL Albumin 3.2 L (3.5-5.0) g/dL Assessment and Plan Plan: 1. Dyspnea related to acute on chronic diastolic congestive heart failure. Chest x-ray completed in the ER showing chronic changes and cardiomegaly without acute pulmonary process. IV Lasix has been started. Cardiology services have been consulted and 2-D echo ordered 2. History of coronary artery disease with history of CABG and stent placement 3. Chronic atrial fibrillation heart rate well-controlled. Patient not on anticoagulation high-risk of bleeding in the past 4. History of essential hypertension 5. Hypothyroidism. Synthroid resumed 6. Acute on chronic kidney disease. Creatinine 1.44 we'll continue to monitor closely baseline creatinine 1.2 on 07/20/2018 Will check kidney ultrasound change Lasix to 20 mg IV every 8 hours. Kidney ultrasound reveals evidence of atrophic right kidney without any evidence of mass or obstruction Will consult nephrology for evaluation 7. History of hyperlipidemia 8. History of GERD 9. History of COPD. 10. History of anxiety and depression DVT prophylaxis LOVENOX. GI prophylaxis Pepcid
--- NOTE | 2018-07-23 13:36 | P.NPCON ---
History of Present Illness - Reason for Consult acute renal failure - Chief Complaint Shortness of breath - History of Present Illness 83-year-old white lady coming to the hospital with the above complaints. She has diastolic CHF and takes Lasix 60 mg at home. She presented to the hospital with worsening shortness of breath she got Lasix IV starts feeling better and wanted to go home. She went home and didn't feel better came back again with worsening shortness of breath. Currently in the hospital with 20 mg IV Lasix 3 times a day. 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 No nausea vomiting diarrhea no NSAID use. No recent contrast studies. After Lasix. Feels much better lying comfortable in the bed. Ultrasound showed renal atrophy and nephrology was consulted Review of Systems Constitutional: Reports as per HPI Past Medical History Past Medical History: Atrial Fibrillation, Coronary Artery Disease (CAD), Chest Pain / Angina, COPD, GERD/Reflux, Hyperlipidemia, Myocardial Infarction (non Q- wave), Osteoarthritis (OA), Pneumonia Additional Past Medical History / Comment(s): recent fall with L rib fx, neuropathy bilateral feet, gout bilateral feet, back pain, sciatica, scoliosis, DJD, hypothyroid, anemia r/t epistaxis, Last Myocardial Infarction Date:: 2012 History of Any Multi-Drug Resistant Organisms: None Reported Past Surgical History: Appendectomy, Back Surgery, Cardiac Ablation, Cholecystectomy, Coronary Bypass/CABG, Heart Catheterization With Stent, Hysterectomy Additional Past Surgical History / Comment(s): laminectomy, Nasal Cauterization 10/01/13, heart stents x's 4 or 5, CABG 4 vessek 1993, LOW, colonoscopy with benign polypectomy, D&C, bilateral cataract removal, R breast benign bx. Past Anesthesia/Blood Transfusion Reactions: Previous Problems w/ Anesthesia Additional Past Anesthesia/Blood Transfusion Reaction / Comment(s): Pt received blood 02/07/12 without reaction after epistaxis. Date of Last Stent Placement:: 03/2013 Past Psychological History: Anxiety, Depression Additional Psychological History / Comment(s): Pt resides alone. She uses a cane to ambulate. She drives. She states she has increased depression lately but is not suicidal- no thoughts or plans. She has been on medication for anxiety and depression in the ast but did not like the way they made her feel or was on them for a week and didn't think they were working. Smoking Status: Former smoker Past Alcohol Use History: Daily Additional Past Alcohol Use History / Comment(s): Pt has a glass of wine each evening. She started smoking in 6 and quit in 1986. Past Drug Use History: None Reported - Past Family History Mother Additional Family Medical History / Comment(s): Mother was a heavy drinker. She lived to be in her 80's Father Family Medical History: No Reported History Additional Family Medical History / Comment(s): Father lived to be in his 80's Medications and Allergies Home Medications Medication Instructions Recorded Confirmed Type Cyanocobalamin [Vitamin B-12] 500 mcg PO DAILY 10/03/13 07/20/18 History Aspirin [Adult Low Dose Aspirin EC] 81 mg PO BID 01/10/16 07/20/18 History Furosemide [Lasix] 60 mg PO DAILY 03/16/16 07/20/18 History Levothyroxine Sodium [Synthroid] 68.5 mcg PO Q48H 03/16/16 07/20/18 History ALPRAZolam [Xanax] 0.25 mg PO Q6H PRN 07/20/18 07/20/18 History Albuterol Nebulized [Ventolin 2.5 mg INHALATION RT-Q4H PRN 07/20/18 07/20/18 History Nebulized] Allopurinol [Zyloprim] 300 mg PO DAILY 07/20/18 07/20/18 History Cholecalciferol [Vitamin D3] 1,000 unit PO DAILY 07/20/18 07/20/18 History Escitalopram [Lexapro] 10 mg PO DAILY 07/20/18 07/20/18 History Levothyroxine Sodium [Synthroid] 137 mcg PO Q48H 07/20/18 07/20/18 History Metoprolol Tartrate [Lopressor] 75 mg PO BID 07/20/18 07/20/18 History Nitroglycerin Sl Tabs [Nitrostat] 0.4 mg SUBLINGUAL Q5M PRN 07/20/18 07/20/18 History Allergies Allergy/AdvReac Type Severity Reaction Status Date / Time Mnsocvo-Pdp-Jes Reductase Allergy Unknown Verified 07/20/18 20:54 Inhibitor Physical Exam Vitals: Vital Signs Temp Pulse Pulse Pulse Resp BP Pulse Ox 07/23/18 08:40 82 07/23/18 08:30 80 07/23/18 07:00 18 07/23/18 06:58 97.5 F L 78 18 94/54 94 L 07/22/18 23:30 97.7 F 64 18 100/52 95 07/22/18 19:40 98.5 F 89 18 107/59 96 07/22/18 14:45 97.7 F 70 16 109/63 96 07/22/18 14:27 84 07/22/18 14:15 84 Intake and Output 07/22/18 07/23/18 07/23/18 22:59 06:59 14:59 Other: Voiding Method Toilet Toilet # Voids 2 1 Weight 80.4 kg No acute distress Lying comfortable in bed S1-S2 heard Lungs clear No edema. Results - Lab Results Most recent lab results Calcium 9.2 mg/dL (8.4-10.2) 07/23/18 06:52 Magnesium 2.2 mg/dL (1.6-2.3) 07/20/18 20:33 07/23/18 06:52 07/23/18 06:52 Assessment and Plan Assessment: #1 acute kidney injury secondary to type I cardiorenal syndrome. #2 CKD3 secondary to nephrosclerosis, baseline creatinine 1.2 MG per DL. #3 diastolic CHF with pulmonary edema #4 low normal blood pressures #5 metabolic alkalosis #6 right renal atrophy suspect atherosclerotic disease. Plan: #1 symptoms improved with Lasix currently on 20 mg IV 3 times a day. #2 change to torsemide 40 mg by mouth daily at discharge. #3 she has nephrosclerosis with right renal atrophy. As her pulmonary edema doesn't seem to be related to hypertension, and she runs low normal blood pressure. Renal function not severe. No acute indication for intervention for her nephrosclerosis. And also it seems to be a generalized disease rather than focal stenosis.. #4 stable from nephrology point of view for discharge to be followed up in the office in 1-2 weeks.
[2018-07-23] MEDS: NITROGLYCERIN SL TABS 0.4 MG TAB SUBLINGUAL PRN (19:55)
[2018-07-24] MEDS: LEVOTHYROXINE 137 MCG TAB PO SCH (05:41)
[2018-07-24] MEDS: ENOXAPARIN 40 MG/0.4 ML SYRINGE SQ SCH (07:35)
[2018-07-24] MEDS: FUROSEMIDE 10 MG/ML 2 ML VIAL IV SCH ×3 (07:36→23:40)
[2018-07-24] MEDS: ALLOPURINOL 300 MG TAB PO SCH (07:36)
[2018-07-24] MEDS: METOPROLOL TARTRATE 50 MG TAB PO SCH ×2 (07:36→20:25)
[2018-07-24] MEDS: CHOLECALCIFEROL 1,000 UNIT TAB PO SCH (07:36)
[2018-07-24] MEDS: CYANOCOBALAMIN 500 MCG TAB PO SCH (07:36)
[2018-07-24] MEDS: FAMOTIDINE 20 MG TAB PO SCH (07:36)
[2018-07-24] MEDS: ASPIRIN 81 MG PO SCH ×2 (07:36→20:25)
[2018-07-24] MEDS: NITROGLYCERIN OINT 1 INCH/GM PACKET TOPICAL SCH ×3 (07:36→23:41)
[2018-07-24] MEDS: ESCITALOPRAM 10 MG TAB PO SCH (07:37)
[2018-07-24 10:01] LABS: Anisocytosis Slight; Basophils # (A) 0.1 k/uL (0-0.2); Basophils % (A) 1 %; Eosinophils # (A) 0.3 k/uL (0-0.7); Eosinophils % (A) 4 %; HCT 37.4 % (34.0-46.0); HGB 11.7 gm/dL (11.4-16.0); Hypochromasia Moderate; Lymphocytes # (A) 1.2 k/uL (1.0-4.8); Lymphocytes % (A) 17 %; MCH 31.9 pg (25.0-35.0); MCHC 31.2 g/dL (31.0-37.0); MCV 102.2 fL (80.0-100.0); Macrocytosis Slight; Mean Platelet Volume 7.1; Monocytes # (A) 0.4 k/uL (0-1.0); Monocytes % (A) 6 %; Neutrophils # (A) 5.1 k/uL (1.3-7.7); Neutrophils % (A) 72 %; Platelet Count 206 k/uL (150-450); RBC 3.65 m/uL (3.80-5.40); RDW 16.2 % (11.5-15.5); WBC 7.2 k/uL (3.8-10.6)
[2018-07-24 10:10] LABS: Albumin 3.5 g/dL (3.5-5.0); Calcium 9.1 mg/dL (8.4-10.2); Potassium 4.1 mmol/L (3.5-5.1); Total Bilirubin 0.7 mg/dL (0.2-1.3)
--- NOTE | 2018-07-24 12:46 | P.DS ---
Providers Date of admission: 07/21/18 16:12 Expected date of discharge: 07/24/18 Attending physician: Susan Virk Consults: 07/20/18 22:05 Consult Physician Routine Consulting Provider: Rashawn Parada Consult Reason/Comments: CHF Do you want consulting provider notified?: Yes 07/23/18 12:34 Consult Physician Routine Consulting Provider: Marta Marshall Consult Reason/Comments: acute on chronic renal failure, atrophy R kidney Do you want consulting provider notified?: Yes Primary care physician: Tiera Kuhn Hospital Course: Discharge diagnosis 1. Dyspnea related to acute on chronic diastolic congestive heart failure. Chest x-ray completed in the ER showing chronic changes and cardiomegaly without acute pulmonary process. IV Lasix has been started. 2-D echo completed showing an EF of 55-60%. 2. History of coronary artery disease with history of CABG and stent placement 3. Chronic atrial fibrillation heart rate well-controlled. Patient not on anticoagulation high-risk of bleeding in the past 4. History of essential hypertension 5. Hypothyroidism. Synthroid resumed 6. Acute on chronic kidney disease. Creatinine 1.44 we'll continue to monitor closely baseline creatinine 1.2 on 07/20/2018 Will check kidney ultrasound change Lasix to 20 mg IV every [address] case with Dr. Reveles per nephrology services. Patient will be DC'd on torsemide 20 mg daily and will follow-up with nephrology services in 1 week. Creatinine today 1.33 7. History of hyperlipidemia 8. History of GERD 9. History of COPD. 10. History of anxiety and depression 11. nephrosclerosis with right renal atrophy. Per nephrology's notes indication for intervention at this time this also seems to be generalized disease rather than focal stenosis. Kidney ultrasound reveals evidence of atrophic right kidney without any evidence of mass or obstruction . Patient will follow up with nephrology services in 1 week Hospital course This is a 83-year-old female patient of Dr. Kuhn. Patient presented to ER with complaints of increased shortness of breath. Patient presented to the ER earlier in the day was given IV Lasix and at that time patient requested to be discharged home. Patient reports she went home and did not have any improvement with her shortness of breath. Patient presented back to the emergency room. Patient does have a past medical history of diastolic congestive heart failure, atrial fibrillation which she's not on anticoagulation due to increase risk of bleeding, coronary artery disease, chest pain, GERD, hyperlipidemia, myocardial infarction, osteoarthritis, hypothyroidism, gout, appendectomy, CABG and anxiety. EKG completed showing atrial fibrillation heart rate in the 70s. Chest x-ray completed showing chronic changes and cardiomegaly without acute pulmonary process. BNP 2470. Patient started on IV Lasix and placed on cardiac telemetry. Cardiology service is consulted. 2-D echo has been ordered. Denies chest pain or shortness breath. Patient denies nausea vomiting or diarrhea. Patient denies any urinary burning or frequency On 07/22/2018 patient is alert and oriented 3 in no apparent distress she is still complaining of shortness of breath with any activity otherwise she denies any complaints there is no chest pain no palpitation there is no fever or chills no headache no dizziness no cough no nausea or vomiting no abdominal pain no diarrhea and no urinary symptoms. On 07/23/2018 patient was seen and examined she is feeling better shortness of breath is improving otherwise she denies any complaints there is no fever or chills no headache or dizziness no chest pain no palpitation no cough no nausea or vomiting no abdominal pain no diarrhea and no urinary symptoms, kidney and bladder ultrasound done and was reviewed and revealed evidence of atrophy in the right kidney without evidence of mass or obstruction, patient denies any knowledge of any previous kidney disease history. At this time will consult nephrology for evaluation. On 07/24/2018 patient is alert and oriented 3 feeling much improved. Discussed case with nursing staff. Patient has been tolerating room air with ambulation's with good oxygenation 94-95%. Also discussed case with Dr. Reveles per nephrology services. Patient has been cleared for discharge. Patient will be DC'd on torsemide 20 mg and be followed up in 1 week with nephrology services for further evaluation. We'll also order CMP for 1 week, at this time patient denies chest pain or shortness of breath. Patient denies nausea vomiting or diarrhea. Patient denies any urinary burning or frequency. I performed an examination of the patient and discussed their management with the Nurse Practitioner. I have reviewed the Nurse Practitioner's notes and agree with the documented findings and plan of care Patient Condition at Discharge: Stable Plan - Discharge Summary New Discharge Prescriptions: New Torsemide [Demadex] 20 mg PO DAILY 30 Days #30 tablet Continue Cyanocobalamin [Vitamin B-12] 500 mcg PO DAILY Aspirin [Adult Low Dose Aspirin EC] 81 mg PO BID Levothyroxine Sodium [Synthroid] 68.5 mcg PO Q48H Albuterol Nebulized [Ventolin Nebulized] 2.5 mg INHALATION RT-Q4H PRN PRN Reason: Cough Allopurinol [Zyloprim] 300 mg PO DAILY ALPRAZolam [Xanax] 0.25 mg PO Q6H PRN PRN Reason: Anxiety Cholecalciferol [Vitamin D3] 1,000 unit PO DAILY Escitalopram [Lexapro] 10 mg PO DAILY Levothyroxine Sodium [Synthroid] 137 mcg PO Q48H Metoprolol Tartrate [Lopressor] 75 mg PO BID Nitroglycerin Sl Tabs [Nitrostat] 0.4 mg SUBLINGUAL Q5M PRN PRN Reason: Chest Pain Discontinued Furosemide [Lasix] 60 mg PO DAILY Discharge Medication List Cyanocobalamin [Vitamin B-12] 500 mcg PO DAILY 10/03/13 [History] Aspirin [Adult Low Dose Aspirin EC] 81 mg PO BID 01/10/16 [History] Levothyroxine Sodium [Synthroid] 68.5 mcg PO Q48H 03/16/16 [History] ALPRAZolam [Xanax] 0.25 mg PO Q6H PRN 07/20/18 [History] Albuterol Nebulized [Ventolin Nebulized] 2.5 mg INHALATION RT-Q4H PRN 07/20/18 [ History] Allopurinol [Zyloprim] 300 mg PO DAILY 07/20/18 [History] Cholecalciferol [Vitamin D3] 1,000 unit PO DAILY 07/20/18 [History] Escitalopram [Lexapro] 10 mg PO DAILY 07/20/18 [History] Levothyroxine Sodium [Synthroid] 137 mcg PO Q48H 07/20/18 [History] Metoprolol Tartrate [Lopressor] 75 mg PO BID 07/20/18 [History] Nitroglycerin Sl Tabs [Nitrostat] 0.4 mg SUBLINGUAL Q5M PRN 07/20/18 [History] Torsemide [Demadex] 20 mg PO DAILY 30 Days #30 tablet 07/24/18 [Rx] Follow up Appointment(s)/Referral(s): Tiera Kuhn MD [Primary Care Provider] - 1-2 days Marta Marshall MD [STAFF PHYSICIAN] - 1 Week Jonathon Ramírez MD [STAFF PHYSICIAN] - 1 Week Ambulatory/Diagnostic Orders: Comprehensive Metabolic Panel [LAB.AMB] Time Frame: 3 Days, Location: None Selected Discharge Disposition: HOME SELF-CARE
[2018-07-24] MEDS: ALPRAZolam 0.25 MG TAB PO PRN (12:57)
--- NOTE | 2018-07-24 18:50 | PN ---
PROGRESS NOTE Patient is seen for followup for acute kidney injury. Her renal function has improved. Serum creatinine is down to 1.3 mg/dL. It peaked at 1.6. Patient is currently maintained on IV Lasix. She will be switched over to oral diuretics. On examination today, blood pressure was 102/58, heart rate 75 per minute. She is afebrile. EXAMINATION OF THE HEART: S1 and S2. EXAMINATION OF LUNGS: Bilateral breath sounds are heard. ABDOMEN: Soft, non-tender. Examination of lower extremities shows edema 1+ bilaterally. Labs show sodium 139, potassium 4.1, BUN 31, serum creatinine 1.3, hemoglobin 11.7 g/dL. ASSESSMENT: 1. Acute kidney injury, mainly cardiorenal, currently improved. 2. Chronic kidney disease, stage III, secondary to nephrosclerosis. 3. Metabolic alkalosis. 4. Right renal atrophy. PLAN: Patient can be discharged from nephrology standpoint. She will be discharged on Demadex 20 mg p.o. daily with close monitoring of weight and volume status as outpatient. We can see her in the office in about 1-2 weeks' time. MMODL / IJN: [id number] /
[2018-07-25] MEDS: LEVOTHYROXINE 137 MCG TAB PO SCH (05:26)
[2018-07-25 07:18] VITALS: BP 108/68; PULSE 74; RESP 17; TEMP 97.8
[2018-07-25 07:46] LABS: Anisocytosis Slight; Basophils # (A) 0.1 k/uL (0-0.2); Basophils % (A) 1 %; Eosinophils # (A) 0.3 k/uL (0-0.7); Eosinophils % (A) 4 %; HCT 40.3 % (34.0-46.0); HGB 12.3 gm/dL (11.4-16.0); Hypochromasia Moderate; Lymphocytes # (A) 1.3 k/uL (1.0-4.8); Lymphocytes % (A) 19 %; MCH 31.8 pg (25.0-35.0); MCHC 30.6 g/dL (31.0-37.0); Macrocytosis Moderate; Mean Platelet Volume 6.5; Monocytes # (A) 0.3 k/uL (0-1.0); Monocytes % (A) 5 %; Neutrophils # (A) 4.6 k/uL (1.3-7.7); Neutrophils % (A) 69 %; Platelet Count 210 k/uL (150-450); RBC 3.88 m/uL (3.80-5.40); RDW 16.3 % (11.5-15.5); WBC 6.7 k/uL (3.8-10.6)
[2018-07-25] MEDS: METOPROLOL TARTRATE 50 MG TAB PO SCH (07:59)
[2018-07-25] MEDS: ESCITALOPRAM 10 MG TAB PO SCH (07:59)
[2018-07-25] MEDS: ALLOPURINOL 300 MG TAB PO SCH (07:59)
[2018-07-25] MEDS: NITROGLYCERIN OINT 1 INCH/GM PACKET TOPICAL SCH (07:59)
[2018-07-25] MEDS: FAMOTIDINE 20 MG TAB PO SCH (07:59)
[2018-07-25] MEDS: FUROSEMIDE 10 MG/ML 2 ML VIAL IV SCH (08:00)
[2018-07-25] MEDS: CHOLECALCIFEROL 1,000 UNIT TAB PO SCH (08:00)
[2018-07-25] MEDS: ASPIRIN 81 MG PO SCH (08:00)
[2018-07-25] MEDS: CYANOCOBALAMIN 500 MCG TAB PO SCH (08:00)
[2018-07-25 08:05] LABS: Albumin 3.7 g/dL (3.5-5.0); Calcium 9.5 mg/dL (8.4-10.2); Total Bilirubin 0.7 mg/dL (0.2-1.3); Total Protein 6.2 g/dL (6.3-8.2)
[2018-07-25] MEDS ORDERED: ENOXAPARIN 30 MG/0.3 ML SYRINGE SQ SCH (09:00)
--- NOTE | 2018-07-25 09:53 | P.PN ---
Subjective Progress Note Date: 07/25/18 This is a 83-year-old female patient of Dr. Kuhn. Patient presented to ER with complaints of increased shortness of breath. Patient presented to the ER earlier in the day was given IV Lasix and at that time patient requested to be discharged home. Patient reports she went home and did not have any improvement with her shortness of breath. Patient presented back to the emergency room. Patient does have a past medical history of diastolic congestive heart failure, atrial fibrillation which she's not on anticoagulation due to increase risk of bleeding, coronary artery disease, chest pain, GERD, hyperlipidemia, myocardial infarction, osteoarthritis, hypothyroidism, gout, appendectomy, CABG and anxiety. EKG completed showing atrial fibrillation heart rate in the 70s. Chest x-ray completed showing chronic changes and cardiomegaly without acute pulmonary process. BNP 2470. Patient started on IV Lasix and placed on cardiac telemetry. Cardiology service is consulted. 2-D echo has been ordered. Denies chest pain or shortness breath. Patient denies nausea vomiting or diarrhea. Patient denies any urinary burning or frequency On 07/22/2018 patient is alert and oriented 3 in no apparent distress she is still complaining of shortness of breath with any activity otherwise she denies any complaints there is no chest pain no palpitation there is no fever or chills no headache no dizziness no cough no nausea or vomiting no abdominal pain no diarrhea and no urinary symptoms. On 07/23/2018 patient was seen and examined she is feeling better shortness of breath is improving otherwise she denies any complaints there is no fever or chills no headache or dizziness no chest pain no palpitation no cough no nausea or vomiting no abdominal pain no diarrhea and no urinary symptoms, kidney and bladder ultrasound done and was reviewed and revealed evidence of atrophy in the right kidney without evidence of mass or obstruction, patient denies any knowledge of any previous kidney disease history. At this time will consult nephrology for evaluation. On 07/24/2018 patient is alert and oriented 3 feeling much improved. Discussed case with nursing staff. Patient has been tolerating room air with ambulation's with good oxygenation 94-95%. Also discussed case with Dr. Reveles per nephrology services. Patient has been cleared for discharge. Patient will be DC'd on torsemide 20 mg and be followed up in 1 week with nephrology services for further evaluation. We'll also order CMP for 1 week, at this time patient denies chest pain or shortness of breath. Patient denies nausea vomiting or diarrhea. Patient denies any urinary burning or frequency. On 07/25/2018 patient is alert and oriented 3. Patient is requiring home O2 with oxygen levels descending to mid 80s at rest. Patient was DC'd yesterday but due to insurance and oxygen delivery discharge was held up. Patient to be discharged home today with home O2. At this time patient denies chest pain or shortness of breath. Patient denies nausea vomiting or diarrhea. Patient denies any urinary burning or frequency. Patient will be DC'd home on torsemide per nephrology Objective - Vital Signs Vital signs: Vital Signs Temp 97.8 F 07/25/18 07:00 Pulse 74 07/25/18 07:00 Resp 17 07/25/18 07:00 BP 108/68 07/25/18 07:00 Pulse Ox 98 07/25/18 07:00 Intake & Output 07/24/18 07/25/18 07/25/18 18:59 06:59 18:59 Intake Total 240 Balance 240 Intake: Oral 240 Other: Voiding Method Toilet # Voids 2 2 - Exam Head normocephalic Neck supple Lungs clear to auscultation bilaterally no wheezing or crackles Heart regular rate and rhythm S1-S2, no rub or gallop Abdomen is soft nontender nondistended positive bowel sounds no hepatosplenomegaly Extremities no edema Neuro alert and orientated to 3 - Labs CBC & Chem 7: 07/25/18 07:22 07/25/18 07:22 Labs: Abnormal Lab Results - Last 24 Hours (Table) 07/24/18 07/24/18 07/25/18 Range/Units 09:30 09:30 07:22 RBC 3.65 L (3.80-5.40) m/uL MCV 102.2 H 104.0 H (80.0-100.0) fL MCHC 30.6 L (31.0-37.0) g/dL RDW 16.2 H 16.3 H (11.5-15.5) % Carbon Dioxide 35 H (22-30) mmol/L BUN 31 H (7-17) mg/dL Creatinine 1.33 H (0.52-1.04) mg/dL Total Protein 6.0 L (6.3-8.2) g/dL 07/25/18 Range/Units 07:22 RBC (3.80-5.40) m/uL MCV (80.0-100.0) fL MCHC (31.0-37.0) g/dL RDW (11.5-15.5) % Carbon Dioxide 35 H (22-30) mmol/L BUN 32 H (7-17) mg/dL Creatinine 1.33 H (0.52-1.04) mg/dL Total Protein 6.2 L (6.3-8.2) g/dL Assessment and Plan Assessment: 1. . Dyspnea related to acute on chronic diastolic congestive heart failure. Chest x-ray completed in the ER showing chronic changes and cardiomegaly without acute pulmonary process. IV Lasix has been started. 2-D echo completed showing an EF of 55-60%. 2. History of coronary artery disease with history of CABG and stent placement 3. Chronic atrial fibrillation heart rate well-controlled. Patient not on anticoagulation high-risk of bleeding in the past 4. History of essential hypertension 5. Hypothyroidism. Synthroid resumed 6. Acute on chronic kidney disease. Creatinine 1.44 we'll continue to monitor closely baseline creatinine 1.2 on 07/20/2018 Will check kidney ultrasound change Lasix to 20 mg IV every [address] Discuss[address] case with Dr. Reveles per nephrology services. Patient will be DC'd on torsemide 20 mg daily and will follow-up with nephrology services in 1 week. Creatinine today 1.33 7. History of hyperlipidemia 8. History of GERD 9. History of COPD. 10. History of anxiety and depression 11. nephrosclerosis with right renal atrophy. Per nephrology's notes indication for intervention at this time this also seems to be generalized disease rather than focal stenosis. Kidney ultrasound reveals evidence of atrophic right kidney without any evidence of mass or obstruction . Patient will follow up with nephrology services in 1 week DVT prophylaxis LOVENOX. GI prophylaxis Pepcid I performed an examination of the patient and discussed their management with the Nurse Practitioner. I have reviewed the Nurse Practitioner's notes and agree with the documented findings and plan of care
--- NOTE | 2018-07-25 12:28 | PN ---
PROGRESS NOTE The patient is seen for followup for acute kidney injury. Her renal function has has significantly improved with creatinine down to 1.3 from a peak of 1.6 mg/dL. The patient is scheduled to be discharged today. PHYSICAL EXAMINATION: On examination, blood pressure is 108/60, heart rate 74 per minute. She is afebrile. EXAMINATION OF THE HEART: S1 and S2. EXAMINATION OF THE LUNGS: Bilateral breath sounds are heard. Abdomen is soft, nontender. Examination of the lower extremities shows no evidence of edema. [employer] exam is grossly intact. LABS: Labs show sodium of 141, potassium 4.0, BUN 32, serum creatinine 1.3. ASSESSMENT: 1. Acute kidney injury, cardiorenal, currently improved. We can switch to oral diuretics at time of discharge. 2. Chronic kidney disease stage 3 secondary to nephrosclerosis. 3. Metabolic alkalosis. 4. Right renal atrophy. The patient is stable for discharge. Follow up in the office in about 1 to 2 weeks for CKD. MMODL / IJN: [id number] /
== END 2018-07-25 13:59 | disposition home or self-care (01) | DRG 291 ==
LOC: EC 19:06 → 4SSUR 22:04 → OBSVTOIN 07-21 16:12
PROVIDERS: ADMIT Internal Medicine; ATTEND Internal Medicine
DX: I13.0 Hypertensive heart and chronic kidney disease with heart failure and stage 1 through stage 4 chronic kidney disease, or unspecified chronic kidney disease (principal); I50.33 Acute on chronic diastolic (congestive) heart failure; N17.9 Acute kidney failure, unspecified; I48.1 Persistent atrial fibrillation; E87.3 Alkalosis; J44.9 Chronic obstructive pulmonary disease, unspecified; G62.9 Polyneuropathy, unspecified; M41.9 Scoliosis, unspecified; Z95.1 Presence of aortocoronary bypass graft; N18.3 Chronic kidney disease, stage 3 (moderate); I34.0 Nonrheumatic mitral (valve) insufficiency; I25.2 Old myocardial infarction; K21.9 Gastro-esophageal reflux disease without esophagitis; I25.10 Atherosclerotic heart disease of native coronary artery without angina pectoris; E78.5 Hyperlipidemia, unspecified; M19.90 Unspecified osteoarthritis, unspecified site; Z87.01 Personal history of pneumonia (recurrent); E03.9 Hypothyroidism, unspecified; M10.9 Gout, unspecified; Z90.49 Acquired absence of other specified parts of digestive tract; F41.9 Anxiety disorder, unspecified; F32.9 Major depressive disorder, single episode, unspecified; Z90.710 Acquired absence of both cervix and uterus; Z99.81 Dependence on supplemental oxygen; Z79.82 Long term (current) use of aspirin; Z79.899 Other long term (current) drug therapy; Z79.890 Hormone replacement therapy; Z95.5 Presence of coronary angioplasty implant and graft; Z98.42 Cataract extraction status, left eye; Z98.41 Cataract extraction status, right eye; Z87.81 Personal history of (healed) traumatic fracture; Z86.010 Personal history of colon polyps; Z87.891 Personal history of nicotine dependence; Z88.8 Allergy status to other drugs, medicaments and biological substances
CPT/HCPCS: 36415; 76770; 80053; 83735; 83880; 84484; 85025; 85610; 85730; 93005; 93306; 94640; 96374; 99285

== ENCOUNTER 2018-09-14 09:22 | Inpatient (IN) | payer MEDICARE, BC ==
[2018-09-14] MEDS ORDERED: ASPIRIN 81 MG PO STA (09:42)
[2018-09-14] MEDS ORDERED: NITROGLYCERIN OINT 1 INCH/GM PACKET TOPICAL STA (09:42)
--- NOTE | 2018-09-14 09:47 | ED ---
General Adult HPI - General Chief complaint: Chest Pain Stated complaint: Chest Pain Time Seen by Provider: 09/14/18 09:31 Source: patient, RN notes reviewed Mode of arrival: wheelchair Limitations: no limitations - History of Present Illness Initial comments: Patient is a pleasant 83-year-old female presenting to the emergency Department with chest discomfort. Onset of symptoms was within the past 24 hours. Discomfort is mild without radiation. Patient does have some associated dyspnea. No nausea or diaphoresis. Patient did have similar symptoms a couple of months ago and was in the hospital at that point. Patient did have a fall around 10 days ago. Patient did not have any chest discomfort following the fall. Patient has had some bruising of her left leg however denies any discomfort. - Related Data Home Medications Medication Instructions Recorded Confirmed Cyanocobalamin [Vitamin B-12] 500 mcg PO DAILY 10/03/13 09/14/18 Aspirin [Adult Low Dose Aspirin EC] 81 mg PO BID 01/10/16 09/14/18 Levothyroxine Sodium [Synthroid] 68.5 mcg PO Q48H 03/16/16 09/14/18 ALPRAZolam [Xanax] 0.25 mg PO Q6H PRN 07/20/18 09/14/18 Albuterol Nebulized [Ventolin 2.5 mg INHALATION RT-Q4H PRN 07/20/18 09/14/18 Nebulized] Allopurinol [Zyloprim] 300 mg PO DAILY 07/20/18 09/14/18 Cholecalciferol [Vitamin D3] 1,000 unit PO DAILY 07/20/18 09/14/18 Escitalopram [Lexapro] 10 mg PO DAILY 07/20/18 09/14/18 Levothyroxine Sodium [Synthroid] 137 mcg PO Q48H 07/20/18 09/14/18 Metoprolol Tartrate [Lopressor] 75 mg PO BID 07/20/18 09/14/18 Nitroglycerin Sl Tabs [Nitrostat] 0.4 mg SUBLINGUAL Q5M PRN 07/20/18 09/14/18 Furosemide [Lasix] 60 mg PO DAILY 09/14/18 09/14/18 Allergies Allergy/AdvReac Type Severity Reaction Status Date / Time Zsuqaae-Oqy-Ham Reductase Allergy Unknown Verified 09/14/18 09:53 Inhibitor Review of Systems ROS Statement: Those systems with pertinent positive or pertinent negative responses have been documented in the HPI. ROS Other: All systems not noted in ROS Statement are negative. Constitutional: Denies: fever Eyes: Denies: eye pain ENT: Denies: ear pain Respiratory: Reports: dyspnea. Denies: cough Cardiovascular: Reports: chest pain Endocrine: Denies: fatigue Gastrointestinal: Denies: abdominal pain Genitourinary: Denies: dysuria Musculoskeletal: Denies: back pain Skin: Reports: as per HPI Neurological: Denies: weakness Past Medical History Past Medical History: Atrial Fibrillation, Coronary Artery Disease (CAD), Chest Pain / Angina, COPD, GERD/Reflux, Hyperlipidemia, Myocardial Infarction (non Q- wave), Osteoarthritis (OA), Pneumonia Additional Past Medical History / Comment(s): recent fall with L rib fx, neuropathy bilateral feet, gout bilateral feet, back pain, sciatica, scoliosis, DJD, hypothyroid, anemia r/t epistaxis, Last Myocardial Infarction Date:: 2012 History of Any Multi-Drug Resistant Organisms: None Reported Past Surgical History: Appendectomy, Back Surgery, Cardiac Ablation, Cholecystectomy, Coronary Bypass/CABG, Heart Catheterization With Stent, Hysterectomy Additional Past Surgical History / Comment(s): laminectomy, Nasal Cauterization 10/01/13, heart stents x's 4 or 5, CABG 4 vess1993, LOW, colonoscopy with benign polypectomy, D&C, bilateral cataract removal, R breast benign bx. Past Anesthesia/Blood Transfusion Reactions: Previous Problems w/ Anesthesia Additional Past Anesthesia/Blood Transfusion Reaction / Comment(s): Pt received blood 02/07/12 without reaction after epistaxis. Date of Last Stent Placement:: 03/2013 Past Psychological History: Anxiety, Depression Smoking Status: Former smoker Past Alcohol Use History: Daily Past Drug Use History: None Reported - Past Family History Mother Additional Family Medical History / Comment(s): Mother was a heavy drinker. She lived to be in her 80's Father Family Medical History: No Reported History Additional Family Medical History / Comment(s): Father lived to be in his 80's General Exam Limitations: no limitations General appearance: alert, in no apparent distress Head exam: Present: atraumatic Eye exam: Present: normal appearance, PERRL ENT exam: Present: normal oropharynx Neck exam: Present: normal inspection Respiratory exam: Present: wheezes (Mild expiratory wheeze). Absent: chest wall tenderness Cardiovascular Exam: Present: irregular rhythm Expanded Peripheral pulses: 2+: Radial (R), Radial (L), Posterior Tibialis (R), Posterior Tibialis (L) GI/Abdominal exam: Present: soft. Absent: tenderness Extremities exam: Present: other (Ecchymosis, moderate left knee and lower leg without tenderness). Absent: pedal edema, calf tenderness Back exam: Present: normal inspection Neurological exam: Present: alert Psychiatric exam: Present: normal affect, normal mood Skin exam: Present: other (Ecchymosis left lower extremity and minimal ecchymosis central chest without tenderness.) Course Vital Signs 09/14/18 09/14/18 09/14/18 09:27 09:41 10:00 Temperature 97.9 F Pulse Rate 98 0 L Respiratory 18 27 H 23 Rate Blood Pressure 99/44 134/88 O2 Sat by Pulse 95 98 98 Oximetry 09/14/18 10:17 Temperature Pulse Rate 89 Respiratory 16 Rate Blood Pressure 121/77 O2 Sat by Pulse 98 Oximetry EKG Findings - EKG Comments: EKG Findings:: A. fib with rate of 83. QRS 90. QT 346. QTc 406. Normal axis. Right ventricular conduction delay. No acute ST change. Medical Decision Making - Medical Decision Making Patient reevaluated and resting comfortably in bed. Patient symptom-free at this time. Patient and family updated on results and plan. Dr. Virk has been paged for admission for Dr. schulte. - Lab Data Result diagrams: 09/14/18 09:50 09/14/18 09:50 Lab Results 09/14/18 09/14/18 09/14/18 Range/Units 09:50 09:50 09:50 WBC 10.2 (3.8-10.6) k/uL RBC 3.66 L (3.80-5.40) m/uL Hgb 11.8 (11.4-16.0) gm/dL Hct 37.2 (34.0-46.0) % MCV 101.8 H (80.0-100.0) fL MCH 32.3 (25.0-35.0) pg MCHC 31.7 (31.0-37.0) g/dL RDW 16.8 H (11.5-15.5) % Plt Count 243 (150-450) k/uL Neutrophils % 86 % Lymphocytes % 8 % Monocytes % 4 % Eosinophils % 2 % Basophils % 0 % Neutrophils # 8.7 H (1.3-7.7) k/uL Lymphocytes # 0.8 L (1.0-4.8) k/uL Monocytes # 0.4 (0-1.0) k/uL Eosinophils # 0.2 (0-0.7) k/uL Basophils # 0.0 (0-0.2) k/uL Anisocytosis Slight Macrocytosis Slight PT (9.0-12.0) sec INR (<1.2) APTT (22.0-30.0) sec Sodium 137 (137-145) mmol/L Potassium 4.5 (3.5-5.1) mmol/L Chloride 100 (98-107) mmol/L Carbon Dioxide 34 H (22-30) mmol/L Anion Gap 3 mmol/L BUN 31 H (7-17) mg/dL Creatinine 1.14 H (0.52-1.04) mg/dL Est GFR (CKD-EPI)AfAm 51 (>60 ml/min/1.73 sqM) Est GFR (CKD-EPI)NonAf 45 (>60 ml/min/1.73 sqM) Glucose 83 (74-99) mg/dL Calcium 9.3 (8.4-10.2) mg/dL Magnesium 2.1 (1.6-2.3) mg/dL Total Bilirubin 0.8 (0.2-1.3) mg/dL AST 25 (14-36) U/L ALT 29 (9-52) U/L Alkaline Phosphatase 91 (38-126) U/L Creatine Kinase 31 (30-135) U/L Troponin I (0.000-0.034) ng/mL NT-Pro-B Natriuret Pep 1990 pg/mL Total Protein 6.1 L (6.3-8.2) g/dL Albumin 3.7 (3.5-5.0) g/dL 09/14/18 09/14/18 Range/Units 09:50 09:50 WBC (3.8-10.6) k/uL RBC (3.80-5.40) m/uL Hgb (11.4-16.0) gm/dL Hct (34.0-46.0) % MCV (80.0-100.0) fL MCH (25.0-35.0) pg MCHC (31.0-37.0) g/dL RDW (11.5-15.5) % Plt Count (150-450) k/uL Neutrophils % % Lymphocytes % % Monocytes % % Eosinophils % % Basophils % % Neutrophils # (1.3-7.7) k/uL Lymphocytes # (1.0-4.8) k/uL Monocytes # (0-1.0) k/uL Eosinophils # (0-0.7) k/uL Basophils # (0-0.2) k/uL Anisocytosis Macrocytosis PT 9.5 (9.0-12.0) sec INR 0.9 (<1.2) APTT 21.9 L (22.0-30.0) sec Sodium (137-145) mmol/L Potassium (3.5-5.1) mmol/L Chloride (98-107) mmol/L Carbon Dioxide (22-30) mmol/L Anion Gap mmol/L BUN (7-17) mg/dL Creatinine (0.52-1.04) mg/dL Est GFR (CKD-EPI)AfAm (>60 ml/min/1.73 sqM) Est GFR (CKD-EPI)NonAf (>60 ml/min/1.73 sqM) Glucose (74-99) mg/dL Calcium (8.4-10.2) mg/dL Magnesium (1.6-2.3) mg/dL Total Bilirubin (0.2-1.3) mg/dL AST (14-36) U/L ALT (9-52) U/L Alkaline Phosphatase (38-126) U/L Creatine Kinase (30-135) U/L Troponin I 0.042 H* (0.000-0.034) ng/mL NT-Pro-B Natriuret Pep pg/mL Total Protein (6.3-8.2) g/dL Albumin (3.5-5.0) g/dL - Radiology Data Radiology results: image reviewed (Chest x-ray shows bilateral basilar atelectasis versus early infiltrate. Chronically elevated right hemidiaphragm) Disposition Clinical Impression: Chest pain Disposition: ADMITTED IP TO THIS HOSP Is patient prescribed a controlled substance at d/c from ED?: No Referrals: Tiera Kuhn MD [Primary Care Provider] - 1-2 days Decision Time: 11:39
[2018-09-14 10:17] LABS: Albumin 3.7 g/dL (3.5-5.0); Calcium 9.3 mg/dL (8.4-10.2); Magnesium 2.1 mg/dL (1.6-2.3); Potassium 4.5 mmol/L (3.5-5.1); Total Bilirubin 0.8 mg/dL (0.2-1.3); Total Protein 6.1 g/dL (6.3-8.2)
[2018-09-14 10:24] LABS: Anisocytosis Slight; Basophils % (A) 0 %; Eosinophils # (A) 0.2 k/uL (0-0.7); Eosinophils % (A) 2 %; HCT 37.2 % (34.0-46.0); HGB 11.8 gm/dL (11.4-16.0); Lymphocytes # (A) 0.8 k/uL (1.0-4.8); Lymphocytes % (A) 8 %; MCH 32.3 pg (25.0-35.0); MCHC 31.7 g/dL (31.0-37.0); MCV 101.8 fL (80.0-100.0); Macrocytosis Slight; Mean Platelet Volume 7.4; Monocytes # (A) 0.4 k/uL (0-1.0); Monocytes % (A) 4 %; Neutrophils # (A) 8.7 k/uL (1.3-7.7); Neutrophils % (A) 86 %; Platelet Count 243 k/uL (150-450); RBC 3.66 m/uL (3.80-5.40); RDW 16.8 % (11.5-15.5); WBC 10.2 k/uL (3.8-10.6)
[2018-09-14 10:34] LABS: INR 0.9 (<1.2); Partial Thromboplastin Time 21.9 sec (22.0-30.0); Prothrombin Time 9.5 sec (9.0-12.0)
--- NOTE | 2018-09-14 10:40 | XR ---
EXAMINATION TYPE: XR chest 2V DATE OF EXAM: 09/14/2018 COMPARISON: 07/20/2018 HISTORY: 83-year-old female with chest pain TECHNIQUE: PA and lateral views FINDINGS: Heart normal size. Median sternotomy wires with postoperative clips in the mediastinum. Elevation of right hemidiaphragm. Mild diffuse interstitial prominence. Some patchy posterior basilar opacity is p resent on the lateral view. IMPRESSION: Chronic changes. The right hemidiaphragm is persistently elevated. One possibility is hemidiaphragmat ic paralysis. Clinically correlate. Otherwise, there is patchy posterior basilar atelectasis or early infiltrate.
[2018-09-14] MEDS ORDERED: NITROGLYCERIN SL TABS 0.4 MG TAB SUBLINGUAL PRN (11:40)
[2018-09-14] MEDS: NITROGLYCERIN OINT 1 INCH/GM PACKET TOPICAL SCH ×3 (12:50→23:10)
[2018-09-14] MEDS ORDERED: IPRATROPIUM-ALBUTEROL 3 ML NEB INHALATION PRN (13:14)
--- NOTE | 2018-09-14 13:35 | P.HPIM ---
History of Present Illness H&P Date: 09/14/18 Chief Complaint: Pain and cough This is a 83-year-old female, patient of Dr. Kuhn. She has a known past medical history of myocardial infarction, coronary disease with previous CABG and cardiac stents, COPD, congestive heart failure, chronic kidney disease, atrial fibrillation with previous cardiac ablation, depression, hypertension and hypothyroidism. Patient also has a past history of smoking. She presents to emergency room with complaints of cough and chest pain. Patient reports that she has chest pains across her chest when she coughs. Symptoms started yeste rday. She also reports over the last couple months she's had 3 falls. Last fall was about 10 days ago. She reports that she just feels weak and goes down. When she falls, she has fallen flat on her chest. She denies any chest pain during the following episodes. Denies any syncopal episodes. Denies any dizziness or lightheadedness. Patient has significant bruising and swelling noted in the left knee left lower leg and ankle area. She is reporting numbness in both legs which is chronic for her. Patient does report having previous lower back surgery. Patient denies any radiation of the chest pain into the arm or neck. She does admit to some shortness of breath. She does wear oxygen at home she is unsure of how many liters. Cardiology and pulmonary service have been placed on consult for the chest pain and cough. She did have a troponin of 0.04 to further cardiac enzymes are pending. Chest x-ray had shown atrial fibrillation with a controlled heart rate of 83. Chest x-ray showing chronic changes. At the right hemidiaphragm is persistently elevated. One possibility is hemidiaphragmatic paralysis. Otherwise there is patchy posterior basilar atelectasis or early infiltrate. Patient does report that the cough is productive. She denies any fever or chills or sweats. Denies any muscle aches or pains. Denies any nausea vomiting bowel movement changes or urinary sym ptoms. She's been started on Rocephin and azithromycin for possible bronchitis and early developing pneumonia. Pulmonary is been placed on consult. Review of Systems Please refer to HPI otherwise unremarkable Past Medical History Past Medical History: Atrial Fibrillation, Coronary Artery Disease (CAD), Chest Pain / Angina, Heart Failure, COPD, GERD/Reflux, Hyperlipidemia, Myocardial Infarction (AR), Osteoarthritis (OA), Pneumonia, Renal Disease Additional Past Medical History / Comment(s): Pt recently admitted to [facility] on 07/21/18 with dyspnea r/t CHF/cardiomyopathy and acute on chronic kidney disease. Other hx: Chronic Afib, neuropathy bilateral feet, gout bilateral feet, falls, occasional low back pain with bilateral sciatica with L side worse, hypothyroid, epistaxis with blood loss anemia. Last Myocardial Infarction Date:: 2012 History of Any Multi-Drug Resistant Organisms: None Reported Past Surgical History: Appendectomy, Back Surgery, Cardiac Ablation, Cholecystectomy, Coronary Bypass/CABG, Heart Catheterization With Stent, Hysterectomy Additional Past Surgical History / Comment(s): LOW, 1993 CABG-4 vessels, nasal cauterization, colonoscopy with benign polypectomy, D&C, bilateral cataract removals, R breast benign bx, lumbar laminectomy. Past Anesthesia/Blood Transfusion Reactions: Previous Problems w/ Anesthesia Additional Past Anesthesia/Blood Transfusion Reaction / Comment(s): Pt received blood 02/07/12 without reaction after epistaxis. Date of Last Stent Placement:: 03/2013 Smoking Status: Former smoker - Past Family History Mother Additional Family Medical History / Comment(s): Mother was a heavy drinker. She lived to be in her 80's Father Family Medical History: No Reported History Additional Family Medical History / Comment(s): Father lived to be in his 80's Medications and Allergies Home Medications Medication Instructions Recorded Confirmed Type Cyanocobalamin [Vitamin B-12] 500 mcg PO DAILY 10/03/13 09/14/18 History Aspirin [Adult Low Dose Aspirin EC] 81 mg PO BID 01/10/16 09/14/18 History Levothyroxine Sodium [Synthroid] 68.5 mcg PO Q48H 03/16/16 09/14/18 History ALPRAZolam [Xanax] 0.25 mg PO Q6H PRN 07/20/18 09/14/18 History Albuterol Nebulized [Ventolin 2.5 mg INHALATION RT-Q4H PRN 07/20/18 09/14/18 History Nebulized] Allopurinol [Zyloprim] 300 mg PO DAILY 07/20/18 09/14/18 History Cholecalciferol [Vitamin D3] 1,000 unit PO DAILY 07/20/18 09/14/18 History Escitalopram [Lexapro] 10 mg PO DAILY 07/20/18 09/14/18 History Levothyroxine Sodium [Synthroid] 137 mcg PO Q48H 07/20/18 09/14/18 History Metoprolol Tartrate [Lopressor] 75 mg PO BID 07/20/18 09/14/18 History Nitroglycerin Sl Tabs [Nitrostat] 0.4 mg SUBLINGUAL Q5M PRN 07/20/18 09/14/18 History Furosemide [Lasix] 60 mg PO DAILY 09/14/18 09/14/18 History Allergies Allergy/AdvReac Type Severity Reaction Status Date / Time [id number] Reductase Allergy Unknown Verified 09/14/18 09:53 Inhibitor Physical Exam Vitals: Vital Signs Temp Pulse Resp BP Pulse Ox 09/14/18 12:23 98.6 F 80 16 155/93 99 09/14/18 12:00 86 135/84 96 09/14/18 11:40 95 09/14/18 11:30 87 123/59 98 09/14/18 11:00 92 133/67 98 09/14/18 10:17 89 16 121/77 98 09/14/18 10:00 23 134/88 98 09/14/18 09:41 0 L 27 H 98 09/14/18 09:27 97.9 F 98 18 99/44 95 Intake and Output 09/13/18 09/14/18 09/14/18 22:59 06:59 14:59 Intake Total 0 Balance 0 Intake: Oral 0 Other: Weight 80.5 kg Head normocephalic Neck supple Lungs mild expiratory wheezing noted bilaterally with a few coarse breath sounds Heart irregular rate and rhythm S1-S2, no rub or gallop. A. fib on monitor Abdomen is soft nontender nondistended positive bowel sounds no hepatosplenomegaly Extremities left leg has significant bruising from the knee down to the ankle and foot area. Left knee is swollen. Left lower leg significant bruising and swelling also noticed increasing in the left ankle. Patient does have some limited range of motion of the left ankle and knee. Neuro alert and orientated to 3 Results CBC & Chem 7: 09/14/18 09:50 09/14/18 09:50 Labs: Abnormal Lab Results - Last 24 Hours (Table) 09/14/18 09/14/18 09/14/18 Range/Units 09:50 09:50 09:50 RBC 3.66 L (3.80-5.40) m/uL MCV 101.8 H (80.0-100.0) fL RDW 16.8 H (11.5-15.5) % Neutrophils # 8.7 H (1.3-7.7) k/uL Lymphocytes # 0.8 L (1.0-4.8) k/uL APTT 21.9 L (22.0-30.0) sec Carbon Dioxide 34 H (22-30) mmol/L BUN 31 H (7-17) mg/dL Creatinine 1.14 H (0.52-1.04) mg/dL Troponin I (0.000-0.034) ng/mL Total Protein 6.1 L (6.3-8.2) g/dL 09/14/18 Range/Units 09:50 RBC (3.80-5.40) m/uL MCV (80.0-100.0) fL RDW (11.5-15.5) % Neutrophils # (1.3-7.7) k/uL Lymphocytes # (1.0-4.8) k/uL APTT (22.0-30.0) sec Carbon Dioxide (22-30) mmol/L BUN (7-17) mg/dL Creatinine (0.52-1.04) mg/dL Troponin I 0.042 H* (0.000-0.034) ng/mL Total Protein (6.3-8.2) g/dL Thrombosis Risk Factor Assmnt - Choose All That Apply Any of the Below Risk Factors Present?: Yes Each Factor Represents 1 point: Abnormal pulmonary function (COPD), Obesity (BMI >25) Other Risk Factors: Yes Each Risk Factor Represents 3 Points: Age 75 years or older Other congenital or acquired thrombophilia - If yes, enter type in comment: No Thrombosis Risk Factor Assessment Total Risk Factor Score: 5 Thrombosis Risk Factor Assessment Level: High Risk Assessment and Plan Assessment: 1. Chest pain with cough: Patient does have a cardiac history. Cardiology is been placed on consult. First troponin 0.042. Continue to monitor serial cardiac enzymes. EKG showing atrial fibrillation with a heart rate of 83. 2. Possible bronchitis versus early pneumonia: Start patient on Rocephin. Azithromycin interacts with her Lexapro. Continue Rocephin for now. Check sputum culture. Consult pulmonary service. Add DuoNeb updrafts 3. COPD with mild exacerbation we'll place patient on DuoNeb updrafts 4 times a day and as needed. Consult pulmonary service 4. Chest x-ray showing a right hemidiaphragm that is persistently elevated. Consider possibility of hemidiaphragmatic paralysis. Consult pulmonary service. 5. Falling with 3 falls in the last 2 months. Patient does have significant bruising along the left knee and lower leg and ankle. We'll x-ray the left knee left tibia fibula and ankle. Consult PT OT 6. History of coronary artery disease with history of CABG and cardiac stent 7. History of myocardial infarction 8. History of chronic kidney disease, stage III 9. Hypothyroidism continue Synthroid 10. Chronic atrial fibrillation heart rate controlled. Patient not on anticoagulation due to high risk of bleeding in the past 11. History of chronic diastolic CHF. Continue with her oral Lasix GI prophylaxis Pepcid and DVT prophylaxis Time with Patient: Greater than 30 (Greater than 50% of the total time spent in counseling and coordination of care.I performed an examination of the patient and discussed their management with the physician Size Maker. I have reviewed the Physician Size Maker's notes and agree with the documented findings and plan of care)
[2018-09-14] MEDS: IPRATROPIUM-ALBUTEROL 3 ML NEB INHALATION SCH ×2 (15:58→21:29)
--- NOTE | 2018-09-14 16:39 | XR ---
EXAMINATION TYPE: XR knee complete 3 views LT, XR tibia fibula views LT, XR ankle complete 3 views LT DATE OF EXAM: 09/14/2018 COMPARISON: NONE HISTORY: 83-year-old female fall, pain, and swelling. Fall one week ago. FINDINGS: Left knee: Surgical clips from prior saphenous vein graft harvesting. Focal soft tissue protuberance along the m edial aspect of the knee. Additional prepatellar soft tissue swelling. Marked osteopenia makes detail ed bony assessment difficult especially of the lateral tibial plateau. There is a mfdge-[id number] k nee joint effusion. Meniscal chondrocalcinosis. No displaced fracture seen. Tricompartmental degenera tive spurring. Left tibia/fibula: Additional surgical clips are present medially. Reticulations in the subcutaneous tissues suggesting generalized edema. No acute fracture. Left ankle: Ankle mortise is congruent. Preserved distal tibiofibular overlap. Vascular calcifications. Small inocencia ntar calcaneal spur. Mild degenerative joint space narrowing at the talonavicular and calcaneocuboid joints. There continues to be some joint space narrowing along the posterior aspect of the tibiotalar joint as well. No acute fracture, subluxation, dislocation. IMPRESSION: 1. Left knee: Small to moderate knee joint effusion. The degree of osteopenia makes detailed bony ass essment difficult especially of the lateral tibial plateau. While no displaced fracture is seen, if t here is concern for internal derangement or occult osseous injury, MRI is recommended. 2. Left knee: Marked medial sided soft tissue swelling could represent contusion, hematoma, or MCL in jury. 3. Left tibia/fibula: Soft tissue edema. No acute osseous abnormality seen. 4. Left ankle: Some scattered degenerative changes with joint space narrowing posterior tibiotalar courtney int and within the talonavicular and calcaneocuboid joints.
[2018-09-14] MEDS: METOPROLOL TARTRATE 25 MG TAB PO SCH (17:13)
--- NOTE | 2018-09-14 17:51 | CT ---
EXAMINATION TYPE: CT chest wo con DATE OF EXAM: 09/14/2018 COMPARISON: None HISTORY: Short of breath CT DLP: mGycm. Automated Exposure Control for Dose Reduction was Utilized. TECHNIQUE: CT scan of the thorax is performed without IV contrast. FINDINGS: There are some emphysematous bulla in the right upper lobe. There is some groundglass coarse intersti tial infiltrate in both lungs. There is mild atelectasis at the lung bases. Heart is enlarged. Thorac ic aorta is atheromatous. There is no aneurysm. There is no mediastinal adenopathy. There are no kermit r masses. There is atherosclerotic vascular calcification. There are clips from cholecystectomy. IMPRESSION: Cardiomegaly. Mild emphysema. Atherosclerotic vascular disease. Interstitial pulmonary in filtrates and atelectasis without pleural fluid. This could relate to interstitial pneumonia. Congest donald heart failure is not excluded.
[2018-09-14] MEDS: DILTIAZEM ORAL 30 MG TAB PO SCH ×2 (18:08→23:08)
[2018-09-14] MEDS: methylPREDNISolone SOD SUCCI 125 MG/2 ML VIAL IV SCH ×2 (18:08→23:10)
[2018-09-14] MEDS ORDERED: SODIUM CHLORIDE 0.9% 1,000 ML IV SCH (19:00)
[2018-09-14] MEDS: MONTELUKAST 10 MG TAB PO SCH (20:44)
[2018-09-14] MEDS: BUDESONIDE 0.5 MG/2 ML NEBU INHALATION SCH (21:28)
--- NOTE | 2018-09-14 22:35 | CONS ---
CONSULTATION Gisela Harman is an 83-year-old female who comes in with a history of cough for about one week's duration. This has been associated with occasional bouts of wheezing along with shortness of breath. She had a fall and injured her left lower extremity. She subsequently was seen in the ER and admitted for further evaluation and management. PAST MEDICAL HISTORY: Positive for: 1. Atrial fibrillation. 2. Previous cardiac ablation. 3. History of coronary artery disease, status post coronary artery bypass with previous cardiac stent placements. 4. Previous history of COPD; however, she stopped smoking about 48 years ago. She is on medicine and a nebulizer as well as oxygen at home. 5. History of osteoarthritis. 6. Blood-loss anemia due to epistaxis in the past. 7. Congestive heart failure. 8. Congestive cardiomyopathy. 9. Previous lumbar laminectomy. 10.Colonoscopy with polypectomy. 11.Previous history of elevated right hemidiaphragm, at least on x-rays done in 2016. FAMILY HISTORY: Positive for alcoholism in her mother. Father of old age and did not have any chronic medical problems. SOCIAL HISTORY: Patient used to smoke cigarettes. She quit smoking 48 years ago. 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 She does not drink alcohol excessively. HOME MEDICATIONS: Medications prior to admission were: 1. Lasix. 2. Nitroglycerin sublingually. 3. Metoprolol. 4. Synthroid. 5. Lexapro. 6. Vitamin D3. 7. Zyloprim. 8. Albuterol. 9. Xanax. 10.Synthroid. 11.Aspirin. 12.Cyanocobalamin. ALLERGIES: She has had an ADVERSE REACTION TO STATINS. REVIEW OF SYSTEMS: Positive for obesity. PHYSICAL EXAMINATION: She was sitting in bed. She was mildly short of breath. VITAL SIGNS: Blood pressure 132/73, respiratory rate 22, pulse rate 94, temperature 98.6, oxygen saturation on 2 L by nasal cannula 97%. HEENT reveals pupils that are equal. Mild prominence of the jugular veins. Chest reveals decreased breath sounds in the right base compared to the left. There is prolonged exhalation with expiratory wheeze. Cardiovascular system is S1, S2. No S3. No S4. Short systolic murmur is heard. ABDOMEN: Soft. There is bruising of the left knee and pretibial area. LABORATORY DATA: White count is 10.2 with hemoglobin of 11.8. PT of 9.5 with INR of 0.9. PTT 21.9. Sodium 137, potassium 4.5, chloride 100, bicarb 34. BUN 31, creatinine 1.14. Troponin is 0.042. Influenza A and B are negative. Chest x-ray shows chronic elevation of the right hemidiaphragm with possible atelectasis or infiltrate. IMPRESSION AT THIS TIME: 1. Shortness of breath which is secondary to asthma with possible chronic obstructive pulmonary disease with acute exacerbation. 2. Cardiomyopathy contributing to her shortness of breath. 3. Possible early pneumonia. 4. Chronic elevation of the right hemidiaphragm which may be due to diaphragmatic paralysis on the right from previous coronary artery bypass surgery versus other etiology. At this point in time, I agree with keeping her on antibiotics and bronchodilators. Add budesonide and Singulair to her regimen. Check a sniff test as well as a CT of the chest. Optimize her fluid status. Increase her activity level. Depending on how she does, we shall make further changes to her care. She was counseled regarding her condition and this approach. We will also be checking lab work on her, as it may be unusual for her to have a history of COPD without having smoked a whole lot. Would check alpha-1 antitrypsin phenotype as well as an allergy profile on her at this time. Thank you for allowing us to care for her. MANOJ / ROSA MARIA: [id number] /
--- NOTE | 2018-09-14 22:55 | CONS ---
CONSULTATION This is an 83-year-old lady was admitted to hospital with shortness of breath on cardiology has been consulted for the same. She has history of coronary artery disease, prior bypass surgery, atrial fibrillation, COPD, chronic renal insufficiency, and prior ablation. She has had recurrent falls and hence she is not on any anticoagulant. She seemed to have chest wall injury and has chest pain as a result of that. She also has mild troponin elevation, which is of no clear clinical significance at this time. EKG shows atrial fibrillation. PAST MEDICAL AND SURGICAL HISTORY: Significant for coronary artery disease, hypertension, dyslipidemia, chronic atrial fibrillation. PAST SURGICAL HISTORY: Significant for bypass surgery, polypectomy, cataract surgery, lumbar laminectomy. MEDICATIONS: Medications at home included aspirin, levothyroxine, albuterol, Zyloprim, vitamin D, Synthroid, Lopressor Lasix. ALLERGIES: TO STATIN. FAMILY HISTORY: Negative for premature coronary artery disease. SOCIAL HISTORY: Negative for current smoking, EtOH abuse or drug abuse. PHYSICAL EXAMINATION: On exam patient appears comfortable at rest. Vital signs are stable. Chest exam reveals occasional rhonchi bilaterally. Heart exam reveals first and second heart sounds. No gallop. Has irregular rhythm and a systolic murmur at the left lower sternal border. Abdomen is soft. Exam of extremities reveal trace edema. Peripheral pulses are felt. LABS: Show that the troponin is in 0.04 and 0.04. BNP is 19 90. Hemoglobin is 11.8, platelet count is 243, potassium is 4.5, creatinine is 1.1. ASSESSMENT: 1. Chest pain, musculoskeletal in origin. 2. Mild troponin elevation probably related to renal insufficiency. 3. Known coronary artery disease. 4. Chronic atrial fibrillation, not a candidate for anticoagulation because of recurrent falls. 5. The patient's shortness of breath seems to be primarily related to chronic obstructive pulmonary disease exacerbation. I agree with the nebulizers. Continue rest of her medications. I will obtain a 2D echo on her to evaluate her LV function. MMODL / IJN: [id number] /
--- NOTE | 2018-09-14 23:00 | CT ---
EXAM: CT Angiography Chest With Intravenous Contrast CLINICAL HISTORY: Reason: Elevated D-Dimer TECHNIQUE: Axial computed tomographic angiography images of the chest with intravenous contrast using pulmonary embolism protocol. CTDI is 12.5 mGy and DLP is 336.7 mGy-cm. This CT exam was performed using one or more of the following dose reduction techniques: automated exposure control, adjustment of the mA and/or kV according to patient size, and/or use of iterative reconstruction technique. MIP reconstructed images were created and reviewed. COMPARISON: CT chest noncontrast 09/14/2018 at 1726 hrs. FINDINGS: Artifacts: Motion artifact limiting CTA examination. Pulmonary arteries: No evidence of central pulmonary embolism. Mild dilatation of main pulmonary artery raising possibility of pulmonary arterial hypertension. Aorta: Thoracic aortic calcific atherosclerotic disease. No thoracic aortic aneurysm or evidence of dissection. Lungs: Mild pulmonary emphysema with right upper lobe bullous changes. Interstitial and hazy groundglass pulmonary opacities throughout both lungs which may reflect interstitial pneumonitis or possible pulmonary edema. No focal pulmonary consolidations. Pleural space: No evidence of pleural effusion or pneumothorax. Heart: Cardiomegaly with prominent dilatation of left atrium. Coronary arterial calcifications. No significant pericardial effusion. Bones/joints: Previous median sternotomy. Degenerative changes throughout the thoracic spine. Lymph nodes: Mild mediastinal and right hilar lymphadenopathy which is nonspecific. Gallbladder and bile ducts: Status post previous cholecystectomy. Upper abdomen: Elevated right hemidiaphragm. IMPRESSION: No evidence of central pulmonary embolism. Mild dilatation of main pulmonary artery raising possibility of pulmonary arterial hypertension. Previous median sternotomy. Cardiomegaly with prominent dilatation of left atrium. Interstitial and groundglass pulmonary opacities throughout both lungs which may reflect interstitial pneumonitis or possible mild pulmonary edema. Mild mediastinal and right hilar lymphadenopathy.
[2018-09-15 05:38] LABS: Glucose,Whole Blood 143 mg/dL (75-99)
[2018-09-15 08:29] LABS: Anisocytosis Slight; Basophils % (A) 0 %; Eosinophils % (A) 0 %; HCT 39.4 % (34.0-46.0); HGB 11.9 gm/dL (11.4-16.0); Hypochromasia Slight; Lymphocytes # (A) 0.4 k/uL (1.0-4.8); Lymphocytes % (A) 5 %; MCH 31.5 pg (25.0-35.0); MCHC 30.3 g/dL (31.0-37.0); MCV 103.8 fL (80.0-100.0); Macrocytosis Moderate; Mean Platelet Volume 7.2; Monocytes # (A) 0.1 k/uL (0-1.0); Monocytes % (A) 1 %; Neutrophils # (A) 6.3 k/uL (1.3-7.7); Neutrophils % (A) 93 %; Platelet Count 250 k/uL (150-450); RBC 3.79 m/uL (3.80-5.40); RDW 16.5 % (11.5-15.5); WBC 6.8 k/uL (3.8-10.6)
[2018-09-15 08:42] LABS: Albumin 3.7 g/dL (3.5-5.0); Calcium 9.3 mg/dL (8.4-10.2); Potassium 4.8 mmol/L (3.5-5.1); Total Bilirubin 0.6 mg/dL (0.2-1.3)
[2018-09-15] MEDS: ASPIRIN 325 MG TAB PO SCH (09:12)
[2018-09-15] MEDS: CHOLECALCIFEROL 1,000 UNIT TAB PO SCH (09:12)
[2018-09-15] MEDS: methylPREDNISolone SOD SUCCI 125 MG/2 ML VIAL IV SCH ×4 (09:12→23:23)
[2018-09-15] MEDS: FAMOTIDINE 20 MG TAB PO SCH (09:12)
[2018-09-15] MEDS: ESCITALOPRAM 10 MG TAB PO SCH (09:12)
[2018-09-15] MEDS: DILTIAZEM ORAL 30 MG TAB PO SCH ×2 (09:13→13:25)
[2018-09-15] MEDS: FUROSEMIDE 20 MG TAB PO SCH (09:13)
[2018-09-15] MEDS: ALLOPURINOL 300 MG TAB PO SCH (09:13)
[2018-09-15] MEDS: METOPROLOL TARTRATE 25 MG TAB PO SCH ×2 (09:13→21:13)
[2018-09-15] MEDS: NITROGLYCERIN OINT 1 INCH/GM PACKET TOPICAL SCH ×4 (09:14→23:24)
[2018-09-15] MEDS: LEVOTHYROXINE 137 MCG TAB PO SCH (09:14)
[2018-09-15] MEDS: IPRATROPIUM-ALBUTEROL 3 ML NEB INHALATION SCH ×4 (10:00→18:53)
[2018-09-15] MEDS: BUDESONIDE 0.5 MG/2 ML NEBU INHALATION SCH ×2 (11:18→18:53)
[2018-09-15 11:53] LABS: Glucose,Whole Blood 121 mg/dL (75-99)
--- NOTE | 2018-09-15 12:05 | PN ---
PROGRESS NOTE Patient was seen on 09/15/2018. Patient has been hemodynamically stable. She is less short of breath and undergoing physical therapy. PHYSICAL EXAMINATION: Blood pressure is 140/71, respiratory rate of 20, pulse rate of 101, temperature 97.5, O2 sat on 2 L by nasal cannula is 97%. HEENT shows no new changes. Chest reveals decreased breath sounds. No clear wheeze today. Cardiovascular system reveals an S1, S2. Abdomen is soft. There is trace pedal edema. White count of 6.8, hemoglobin of 11.9, sodium 138, potassium 4.8, chloride 101, bicarb 30, BUN 32, creatinine of 1.05. Troponin is 0.041. CT of the chest showed evidence of interstitial edema. No evidence of any pulmonary emboli. A sniff test is pending. IMPRESSION: 1. Shortness of breath secondary to asthma with chronic obstructive pulmonary disease with acute exacerbation. 2. Cardiomyopathy with congestive heart failure. 3. Possible early pneumonia. 4. Chronic elevation of the right hemidiaphragm which may be due to diaphragmatic paralysis for which a sniff test is pending. Continue her on antibiotics, bronchodilators, budesonide and Singulair. Continue IV steroids. Increase activity level. Depending on how she does, we shall make further changes to her care. MMODL / IJN: [id number] /
--- NOTE | 2018-09-15 12:08 | FL ---
Fluoroscopy INDICATION: Diaphragmatic paralysis FINDINGS: Fluoroscopy time: 48 seconds. Images obtained: 0. There is elevation of the right diaphragm. With deep breathing, normal breathing, and with sniffing t here is no significant motion of the diaphragm. No paradoxical motion was noted. IMPRESSIONS: 1. Paralysis of the right diaphragm. Paradoxical motion was not identified.
--- NOTE | 2018-09-15 12:59 | PN ---
PROGRESS NOTE Gisela is an 83-year-old lady that I saw for the first time yesterday when she presented with symptoms of shortness of breath and she also had chest pain that seems musculoskeletal in nature. Has a chronic AFIB, that she is not a candidate for anticoagulation for. I ordered an echo on her. The results are pending at this time. This morning she looks better. Heart rate is 80 beats per minute. Blood pressure is 140/70, respiratory rate is 18. Chest exam reveals better air entry with occasional rhonchi. Heart exam reveals first and second heart sounds, irregular rhythm. Abdomen is soft. Exam of extremities did not reveal any edema. Peripheral pulses are felt. Her blood pressure is normal at 140/70. LABS: Show that hemoglobin is 11.9, platelet count is 250, potassium is 4.8, creatinine is 1. Troponin is at 0.04 without any change. ASSESSMENT: 1. Chronic atrial fibrillation with controlled ventricular rate. The patient is not a candidate for long-term anticoagulation. 2. History of coronary artery disease. 3. Shortness of breath, primarily from chronic obstructive pulmonary disease exacerbation, musculoskeletal chest pain. PLAN: Will follow the echocardiogram once the results are available. MMODL / IJN: [id number] /
--- NOTE | 2018-09-15 13:08 | P.PN ---
Subjective Progress Note Date: 09/15/18 This is a 83-year-old female, patient of Dr. Kuhn. She has a known past medical history of myocardial infarction, coronary disease with previous CABG and cardiac stents, COPD, congestive heart failure, chronic kidney disease, atrial fibrillation with previous cardiac ablation, depression, hypertension and hypothyroidism. Patient also has a past history of smoking. She presents to emergency room with complaints of cough and chest pain. Patient reports that she has chest pains across her chest when she coughs. Symptoms started yesterday. She also reports over the last couple months she's had 3 falls. Last fall was about 10 days ago. She reports that she just feels weak and goes down. When she falls, she has fallen flat on her chest. She denies any chest pain during the following episodes. Denies any syncopal episodes. Denies any dizziness or lightheadedness. Patient has significant bruising and swelling noted in the left knee left lower leg and ankle area. She is reporting numbness in both legs which is chronic for her. Patient does report having previous lower back surgery. Patient denies any radiation of the chest pain into the arm or neck. She does admit to some shortness of breath. She does wear oxygen at home she is unsure of how many liters. Cardiology and pulmonary service have been placed on consult for the chest pain and cough. She did have a troponin of 0.04 to further cardiac enzymes are pending. Chest x-ray had shown atrial fibrillation with a controlled heart rate of 83. Chest x-ray showing chronic changes. At the right hemidiaphragm is persistently elevated. One possibility is hemidiaphragmatic paralysis. Otherwise there is patchy posterior basilar atelectasis or early infiltrate. Patient does report that the cough is productive. She denies any fever or chills or sweats. Denies any muscle aches or pains. Denies any nausea vomiting bowel movement changes or urinary symptoms. She's been started on Rocephin and azithromycin for possible bronchitis and early developing pneumonia. Pulmonary is been placed on consult. 09/15/18 Patient still has cough. She does report have some improvement in shortness of breath. She is followed by pulmonary and cardiology. CTA negative for PE. X-ray left knee [id number] knee joint effusion. No displaced fracture. Left knee showing marked medial side soft tissue swelling that could represent contusion, hematoma or MCL injury. Left ankle showing scattered degenerative changes with joint space narrowing. Patient denies any chest pain. Denies any nausea or vomiting. Denies any bowel movement changes or urinary symptoms. Objective - Vital Signs Vital signs: Vital Signs Temp 97.5 F L 09/15/18 08:00 Pulse 88 09/15/18 11:35 Resp 20 09/15/18 08:00 BP 140/71 09/15/18 08:00 Pulse Ox 97 09/15/18 08:00 Intake & Output 09/14/18 09/15/18 09/15/18 18:59 06:59 18:59 Intake Total 360 240 Balance 360 240 Weight 80.5 kg 79.8 kg Intake: Oral 360 240 Other: Voiding Method Toilet # Voids 3 1 - Exam Head normocephalic Neck supple Lungs expiratory wheezing with coarse breath sounds bilaterally Heart regular rate and rhythm S1-S2, no rub or gallop Abdomen is soft nontender nondistended positive bowel sounds no hepatosplenomegaly Extremities no edema Neuro alert and orientated to 3 - Labs CBC & Chem 7: 09/15/18 07:58 09/15/18 07:58 Labs: Abnormal Lab Results - Last 24 Hours (Table) 09/14/18 09/14/18 09/14/18 Range/Units 15:53 17:49 21:09 RBC (3.80-5.40) m/uL MCV (80.0-100.0) fL MCHC (31.0-37.0) g/dL RDW (11.5-15.5) % Lymphocytes # (1.0-4.8) k/uL D-Dimer 0.86 H (<0.60) mg/L FEU BUN (7-17) mg/dL Creatinine (0.52-1.04) mg/dL Glucose (74-99) mg/dL POC Glucose (mg/dL) (75-99) mg/dL Troponin I 0.042 H* 0.041 H* (0.000-0.034) ng/mL Total Protein (6.3-8.2) g/dL Cholesterol (<200) mg/dL HDL Cholesterol (40-60) mg/dL 09/15/18 09/15/18 09/15/18 Range/Units 05:36 07:58 07:58 RBC 3.79 L (3.80-5.40) m/uL MCV 103.8 H (80.0-100.0) fL MCHC 30.3 L (31.0-37.0) g/dL RDW 16.5 H (11.5-15.5) % Lymphocytes # 0.4 L (1.0-4.8) k/uL D-Dimer (<0.60) mg/L FEU BUN 32 H (7-17) mg/dL Creatinine 1.05 H (0.52-1.04) mg/dL Glucose 133 H (74-99) mg/dL POC Glucose (mg/dL) 143 H (75-99) mg/dL Troponin I (0.000-0.034) ng/mL Total Protein 6.0 L (6.3-8.2) g/dL Cholesterol 200 H (<200) mg/dL HDL Cholesterol 88 H (40-60) mg/dL 09/15/18 Range/Units 11:40 RBC (3.80-5.40) m/uL MCV (80.0-100.0) fL MCHC (31.0-37.0) g/dL RDW (11.5-15.5) % Lymphocytes # (1.0-4.8) k/uL D-Dimer (<0.60) mg/L FEU BUN (7-17) mg/dL Creatinine (0.52-1.04) mg/dL Glucose (74-99) mg/dL POC Glucose (mg/dL) 121 H (75-99) mg/dL Troponin I (0.000-0.034) ng/mL Total Protein (6.3-8.2) g/dL Cholesterol (<200) mg/dL HDL Cholesterol (40-60) mg/dL Microbiology - Last 24 Hours (Table) 09/14/18 18:12 Gram Stain - Final Sputum Sputum Culture - Final Assessment and Plan Assessment: 1. Chest pain with cough: Pain is likely musculoskeletal secondary to patient's cough. Mildly elevated troponins are likely related to renal insufficiency. Patient seen evaluated by cardiology. EKG showing atrial fibrillation with a heart rate of 83. 2. Possible bronchitis versus early pneumonia: Start patient on Rocephin. Azithromycin interacts with her Lexapro. Continue Rocephin for now. Check sputum culture. Add DuoNeb updrafts. Evaluated by pulmonary service 3. Acute Asthma and COPD exacerbation. Continue DuoNeb updrafts 4 times a day and as needed. Patient evaluated by pulmonary service. They Added IV Solu- Medrol 4. Chronic elevation of the right hemidiaphragm which may be due to diaphragma tic paralysis on the right from previous coronary artery bypass surgery versus other etiology. Seen evaluated by pulmonary service. They've ordered a sniff test 5. Falling with 3 falls in the last 2 months. Patient does have significant bruising along the left knee and lower leg and ankle. Left knee showing a small to moderate knee joint effusion. Left knee also had soft tissue swelling could represent contusion, hematoma or MCL injury. No fractures noted in the left knee, tibia or fibula or left ankle. 6. History of coronary artery disease with history of CABG and cardiac stent 7. History of myocardial infarction 8. History of chronic kidney disease, stage III 9. Hypothyroidism continue Synthroid 10. Chronic atrial fibrillation heart rate controlled. Patient not on anti coagulation due to high risk of bleeding in the past due to falls 11. History of chronic diastolic CHF. Continue with her oral Lasix 12. Shortness of breath is likely related to patient's possible pneumonia and asthma with COPD exacerbation 13. Elevated d-dimer CTA of the chest negative for PE. We'll check venous Dopplers of bilateral lower extremities. Continue PT OT GI prophylaxis Pepcid and DVT prophylaxis I performed an examination of the patient and discussed their management with the physician Director Of Occupational Health. I have reviewed the Physician Director Of Occupational Health's notes and ag ree with the documented findings and plan of care
[2018-09-15] MEDS: INSULIN ASPART (NovoLOG) 100 UNIT/ML VIAL SQ SCH ×3 (13:09→21:12)
[2018-09-15] MEDS: CYANOCOBALAMIN 500 MCG TAB PO SCH (13:25)
--- NOTE | 2018-09-15 14:40 | US ---
EXAMINATION TYPE: US venous doppler duplex LE DATE OF EXAM: 09/15/2018 2:31 PM COMPARISON: NONE CLINICAL HISTORY: elevated D-dimer. Elevated D-dimer, left leg swelling SIDE PERFORMED: Bilateral TECHNIQUE: The lower extremity deep venous system is examined utilizing real time linear array sonog nahed with graded compression, doppler sonography and color-flow sonography. VESSELS IMAGED: External Iliac Vein (EIV) Common Femoral Vein Deep Femoral Vein Greater Saphenous Vein * Femoral Vein Popliteal Vein Small Saphenous Vein * Proximal Calf Veins (* superficial vessels) Right Leg: Appears negative for DVT Left Leg: Appears negative for DVT IMPRESSION: 1. Bilateral Lower extremity ultrasound negative for deep venous thrombosis.
[2018-09-15 16:56] LABS: Glucose,Whole Blood 129 mg/dL (75-99)
--- NOTE | 2018-09-15 16:56 | P.CNOR ---
History of Present Illness - [facility] Consult date: 09/15/18 Consult reason: joint pain History of present illness: Patient is an 83-year-old female who presented to [facility] yesterday with regards to shortness of breath, chest pain and generalized weakne ss. Patient apparently has had multiple falls over the last month or so. Her last fall occurred about a week ago. She states that she landed right on her knee. She normally utilizes a walker or cane when ambulating around her house. She does live alone. Upon arrival to the hospital, multiple lab tests and imaging test were done. Patient was admitted to the selective care unit for further workup of generalized weakness and shortness of breath. She is a very extensive cardiac and pulmonary history. Our orthopedic team was consulted with regards to the left knee pain and swelling. Multiple images were done of the left knee, left ankle, and left tib- fib. Patient denies any previous orthopedic surgery involving the left lower extremity. Patient denies any other orthopedic complaints at this time. Review of Systems Constitutional: Reports as per [facility] Past Medical History Past Medical History: Atrial Fibrillation, Coronary Artery Disease (CAD), Chest Pain / Angina, Heart Failure, COPD, GERD/Reflux, Hyperlipidemia, Myocardial Infarction ([place]), Osteoarthritis (OA), Pneumonia, Renal Disease Additional Past Medical History / Comment(s): Pt recently admitted to [facility] on 07/21/18 with dyspnea r/t CHF/cardiomyopathy and acute on chronic kidney disease. Other hx: Chronic Afib, neuropathy bilateral feet, gout bilateral feet, falls, occasional low back pain with bilateral sciatica with L side worse, hypothyroid, epistaxis with blood loss anemia. Last Myocardial Infarction Date:: 2012 History of Any Multi-Drug Resistant Organisms: None Reported Past Surgical History: Appendectomy, Back Surgery, Cardiac Ablation, Cholecystectomy, Coronary Bypass/CABG, Heart Catheterization With Stent, Hysterectomy Additional Past Surgical History / Comment(s): LOW, 1993 CABG-4 vessels, nasal cauterization, colonoscopy with benign polypectomy, D&C, bilateral cataract removals, R breast benign bx, lumbar laminectomy. Past Anesthesia/Blood Transfusion Reactions: Previous Problems w/ Anesthesia Additional Past Anesthesia/Blood Transfusion Reaction / Comm: Pt received blood 02/07/12 without reaction after epistaxis. Date of Last Stent Placement:: 03/2013 Smoking Status: Former smoker - Past Family History Mother Additional Family Medical History / Comment(s): Mother was a heavy drinker. She lived to be in her 80's Father Family Medical History: No Reported History Additional Family Medical History / Comment(s): Father lived to be in his 80's Medications and Allergies Home Medications Medication Instructions Recorded Confirmed Type Cyanocobalamin [Vitamin B-12] 500 mcg PO DAILY 10/03/13 09/14/18 History Aspirin [Adult Low Dose Aspirin EC] 81 mg PO BID 01/10/16 09/14/18 History Levothyroxine Sodium [Synthroid] 68.5 mcg PO Q48H 03/16/16 09/14/18 History ALPRAZolam [Xanax] 0.25 mg PO Q6H PRN 07/20/18 09/14/18 History Albuterol Nebulized [Ventolin 2.5 mg INHALATION RT-Q4H PRN 07/20/18 09/14/18 History Nebulized] Allopurinol [Zyloprim] 300 mg PO DAILY 07/20/18 09/14/18 History Cholecalciferol [Vitamin D3] 1,000 unit PO DAILY 07/20/18 09/14/18 History Escitalopram [Lexapro] 10 mg PO DAILY 07/20/18 09/14/18 History Levothyroxine Sodium [Synthroid] 137 mcg PO Q48H 07/20/18 09/14/18 History Metoprolol Tartrate [Lopressor] 75 mg PO BID 07/20/18 09/14/18 History Nitroglycerin Sl Tabs [Nitrostat] 0.4 mg SUBLINGUAL Q5M PRN 07/20/18 09/14/18 History Furosemide [Lasix] 60 mg PO DAILY 09/14/18 09/14/18 History Allergies Allergy/AdvReac Type Severity Reaction Status Date / Time [id number] Reductase Allergy Unknown Verified 09/14/18 09:53 Inhibitor Physical Examination Left lower extremity: Significant ecchymosis and swelling present surrounding the knee, ecchymosis trend down along the lower leg into the foot and ankle. Is no obvious open lesions or sores present Prepatellar swelling noticeable along with joint effusion involving the left knee Patient is able to fully extend and flex past 90 with minimal difficulty Patient is tender with palpation of the tibial tubercle and along the lateral joint line Nontender with palpation of the patella Logroll maneuver of the leg reproduces no pain in the groin Calf is soft, no tenderness with palpation Distal neurovascular exam is intact Results - Labs Labs: Abnormal Lab Results - Last 24 Hours (Table) 09/14/18 09/14/18 09/14/18 Range/Units 15:53 17:49 21:09 RBC (3.80-5.40) m/uL MCV (80.0-100.0) fL MCHC (31.0-37.0) g/dL RDW (11.5-15.5) % Lymphocytes # (1.0-4.8) k/uL D-Dimer 0.86 H (<0.60) mg/L FEU BUN (7-17) mg/dL Creatinine (0.52-1.04) mg/dL Glucose (74-99) mg/dL POC Glucose (mg/dL) (75-99) mg/dL Troponin I 0.042 H* 0.041 H* (0.000-0.034) ng/mL Total Protein (6.3-8.2) g/dL Cholesterol (<200) mg/dL HDL Cholesterol (40-60) mg/dL 09/15/18 09/15/18 09/15/18 Range/Units 05:36 07:58 07:58 RBC 3.79 L (3.80-5.40) m/uL MCV 103.8 H (80.0-100.0) fL MCHC 30.3 L (31.0-37.0) g/dL RDW 16.5 H (11.5-15.5) % Lymphocytes # 0.4 L (1.0-4.8) k/uL D-Dimer (<0.60) mg/L FEU BUN 32 H (7-17) mg/dL Creatinine 1.05 H (0.52-1.04) mg/dL Glucose 133 H (74-99) mg/dL POC Glucose (mg/dL) 143 H (75-99) mg/dL Troponin I (0.000-0.034) ng/mL Total Protein 6.0 L (6.3-8.2) g/dL Cholesterol 200 H (<200) mg/dL HDL Cholesterol 88 H (40-60) mg/dL 09/15/18 Range/Units 11:40 RBC (3.80-5.40) m/uL MCV (80.0-100.0) fL MCHC (31.0-37.0) g/dL RDW (11.5-15.5) % Lymphocytes # (1.0-4.8) k/uL D-Dimer (<0.60) mg/L FEU BUN (7-17) mg/dL Creatinine (0.52-1.04) mg/dL Glucose (74-99) mg/dL POC Glucose (mg/dL) 121 H (75-99) mg/dL Troponin I (0.000-0.034) ng/mL Total Protein (6.3-8.2) g/dL Cholesterol (<200) mg/dL HDL Cholesterol (40-60) mg/dL Microbiology - Last 24 Hours (Table) 09/14/18 18:12 Gram Stain - Final Sputum Sputum Culture - Final H & H 09/14/18 09/15/18 Range/Units 09:50 07:58 Hgb 11.8 11.9 (11.4-16.0) gm/dL Hct 37.2 39.4 (34.0-46.0) % Coagulation 09/14/18 Range/Units 09:50 INR 0.9 (<1.2) Result Diagrams: 09/15/18 07:58 09/15/18 07:58 - Diagnostic results Knee x-ray: report reviewed, image reviewed Ankle/Foot x-ray: report reviewed, image reviewed Assessment and Plan Plan: Imaging: Multiple imaging test were done of the left lower extremity, including the knee, tib-fib and ankle. Images demonstrated no acute fractures or dislocations. Se allison tricompartmental osteoarthritis present throughout the left knee. Assessment: 1. Left knee pain/effusion 2. Left knee contusion 3. Left knee osteoarthritis Plan: Dr. Weaver was available today to examine the patient with me at bedside. We will likely proceed with a aspiration along with intra-articular cortisone injection of the left knee tomorrow at bedside. Recommended weight-bear as tolerated with walker PT/OT evaluation Pain control Other medical sociologist and recommendations Time with Patient: Less than 30
[2018-09-15 20:27] LABS: Glucose,Whole Blood 161 mg/dL (75-99)
[2018-09-15] MEDS: MONTELUKAST 10 MG TAB PO SCH (21:13)
[2018-09-15] MEDS: ALPRAZolam 0.25 MG TAB PO PRN (23:24)
[2018-09-16] MEDS: methylPREDNISolone SOD SUCCI 125 MG/2 ML VIAL IV SCH ×3 (06:34→17:13)
[2018-09-16] MEDS: NITROGLYCERIN OINT 1 INCH/GM PACKET TOPICAL SCH (06:35)
[2018-09-16] MEDS: INSULIN ASPART (NovoLOG) 100 UNIT/ML VIAL SQ SCH ×4 (06:49→20:32)
[2018-09-16 06:51] LABS: Glucose,Whole Blood 125 mg/dL (75-99)
[2018-09-16] MEDS: LEVOTHYROXINE 137 MCG TAB PO SCH (06:55)
[2018-09-16 06:57] LABS: Anisocytosis Slight; Basophils % (A) 0 %; Eosinophils % (A) 0 %; HGB 10.7 gm/dL (11.4-16.0); Lymphocytes # (A) 0.4 k/uL (1.0-4.8); Lymphocytes % (A) 5 %; MCH 31.4 pg (25.0-35.0); MCHC 30.6 g/dL (31.0-37.0); MCV 102.6 fL (80.0-100.0); Macrocytosis Moderate; Mean Platelet Volume 7.4; Monocytes # (A) 0.2 k/uL (0-1.0); Monocytes % (A) 2 %; Neutrophils # (A) 7.1 k/uL (1.3-7.7); Neutrophils % (A) 92 %; Platelet Count 217 k/uL (150-450); RBC 3.41 m/uL (3.80-5.40); RDW 16.8 % (11.5-15.5); WBC 7.7 k/uL (3.8-10.6)
[2018-09-16 07:19] LABS: Albumin 3.2 g/dL (3.5-5.0); Calcium 9.2 mg/dL (8.4-10.2); Potassium 4.7 mmol/L (3.5-5.1); Total Bilirubin 0.5 mg/dL (0.2-1.3); Total Protein 5.4 g/dL (6.3-8.2)
[2018-09-16] MEDS: BUDESONIDE 0.5 MG/2 ML NEBU INHALATION SCH ×2 (08:03→19:53)
[2018-09-16] MEDS: IPRATROPIUM-ALBUTEROL 3 ML NEB INHALATION SCH ×4 (08:03→19:53)
[2018-09-16] MEDS: ALLOPURINOL 300 MG TAB PO SCH (08:35)
[2018-09-16] MEDS: FUROSEMIDE 20 MG TAB PO SCH (08:35)
[2018-09-16] MEDS: FAMOTIDINE 20 MG TAB PO SCH (08:35)
[2018-09-16] MEDS: CHOLECALCIFEROL 1,000 UNIT TAB PO SCH (08:35)
[2018-09-16] MEDS: ESCITALOPRAM 10 MG TAB PO SCH (08:35)
[2018-09-16] MEDS: METOPROLOL TARTRATE 25 MG TAB PO SCH ×2 (08:35→20:35)
[2018-09-16] MEDS: ASPIRIN 325 MG TAB PO SCH (08:35)
--- NOTE | 2018-09-16 11:21 | P.OP ---
Date of Procedure: 09/16/18 Preoperative Diagnosis: Left knee traumatic prepatellar bursitis Postoperative Diagnosis: Same Procedure(s) Performed: Aspiration left knee prepatellar bursa Anesthesia: none Surgeon: Luciano Weaver Estimated Blood Loss (ml): 30 Pathology: none sent Condition: stable Disposition: no change Indications for Procedure: 83-year-old patient seen with a traumatic left knee prepatellar bursitis. I recommended aspiration. She was agreeable. Verbal consent was given. Operative Findings: see description of procedure Description of Procedure: The anterior lateral aspect of the left knee was prepped and draped in the normal sterile orthopedic fashion. I introduced a 22-gauge needle into the subcutaneous prepatellar bursa area. I aspirated approximately 30 mL of blood. The needle was removed. A sterile Band-Aid was applied. A compressive Luís bandage was applied. The patient procedure well.
--- NOTE | 2018-09-16 11:42 | P.PN ---
Subjective Progress Note Date: 09/16/18 This is a 83-year-old female, patient of Dr. Kuhn. She has a known past medical history of myocardial infarction, coronary disease with previous CABG and cardiac stents, COPD, congestive heart failure, chronic kidney disease, atrial fibrillation with previous cardiac ablation, depression, hypertension and hypothyroidism. Patient also has a past history of smoking. She presents to emergency room with complaints of cough and chest pain. Patient reports that she has chest pains across her chest when she coughs. Symptoms started yesterday. She also reports over the last couple months she's had 3 falls. Last fall was about 10 days ago. She reports that she just feels weak and goes down. When she falls, she has fallen flat on her chest. She denies any chest pain during the following episodes. Denies any syncopal episodes. Denies any dizziness or lightheadedness. Patient has significant bruising and swelling noted in the left knee left lower leg and ankle area. She is reporting numbness in both legs which is chronic for her. Patient does report having previous lower back surgery. Patient denies any radiation of the chest pain into the arm or neck. She does admit to some shortness of breath. She does wear oxygen at home she is unsure of how many liters. Cardiology and pulmonary service have been placed on consult for the chest pain and cough. She did have a troponin of 0.04 to further cardiac enzymes are pending. Chest x-ray had shown atrial fibrillation with a controlled heart rate of 83. Chest x-ray showing chronic changes. At the right hemidiaphragm is persistently elevated. One possibility is hemidiaphragmatic paralysis. Otherwise there is patchy posterior basilar atelectasis or early infiltrate. Patient does report that the cough is productive. She denies any fever or chills or sweats. Denies any muscle aches or pains. Denies any nausea vomiting bowel movement changes or urinary symptoms. She's been started on Rocephin and azithromycin for possible bronchitis and early developing pneumonia. Pulmonary is been placed on consult. 09/15/18 Patient still has cough. She does report have some improvement in shortness of breath. She is followed by pulmonary and cardiology. CTA negative for PE. X-ray left knee [id number] knee joint effusion. No displaced fracture. Left knee showing marked medial side soft tissue swelling that could represent contusion, hematoma or MCL injury. Left ankle showing scattered degenerative changes with joint space narrowing. Patient denies any chest pain. Denies any nausea or vomiting. Denies any bowel movement changes or urinary symptoms. On 09/16/2018 Patient alert and oriented 3 resting comfortably in bed. Orthopedic services planning aspiration and cortisone injection today. This ti me patient denies any chest pain or shortness breath. Patient denies nausea vomiting or diarrhea. Patient denies any urinary burning or frequency. Patient remains on IV Rocephin and Solu-Medrol Objective - Vital Signs Vital signs: Vital Signs Temp 97.4 F L 09/16/18 08:30 Pulse 94 09/16/18 11:29 Resp 20 09/16/18 08:30 BP 110/53 09/16/18 08:30 Pulse Ox 97 09/16/18 08:30 Intake & Output 09/15/18 09/16/18 09/16/18 18:59 06:59 18:59 Intake Total 720 80 240 Output Total 200 Balance 720 -120 240 Weight 80.2 kg Intake: Oral 720 80 240 Output: Urine 200 Other: Voiding Method Toilet # Voids 2 1 1 # Bowel Movements 1 - Exam Head normocephalic Neck supple Lungs expiratory wheezing with coarse breath sounds bilaterally Heart regular rate and rhythm S1-S2, no rub or gallop Abdomen is soft nontender nondistended positive bowel sounds no hepatosplenomegaly Extremities no edema Neuro alert and orientated to 3 - Labs CBC & Chem 7: 09/16/18 06:17 09/16/18 06:17 Labs: Abnormal Lab Results - Last 24 Hours (Table) 09/15/18 09/15/18 09/15/18 Range/Units 11:40 16:35 20:25 RBC (3.80-5.40) m/uL Hgb (11.4-16.0) gm/dL MCV (80.0-100.0) fL MCHC (31.0-37.0) g/dL RDW (11.5-15.5) % Lymphocytes # (1.0-4.8) k/uL BUN (7-17) mg/dL Creatinine (0.52-1.04) mg/dL Glucose (74-99) mg/dL POC Glucose (mg/dL) 121 H 129 H 161 H (75-99) mg/dL Total Protein (6.3-8.2) g/dL Albumin (3.5-5.0) g/dL 09/16/18 09/16/18 09/16/18 Range/Units 06:17 06:17 06:48 RBC 3.41 L (3.80-5.40) m/uL Hgb 10.7 L (11.4-16.0) gm/dL MCV 102.6 H (80.0-100.0) fL MCHC 30.6 L (31.0-37.0) g/dL RDW 16.8 H (11.5-15.5) % Lymphocytes # 0.4 L (1.0-4.8) k/uL BUN 47 H (7-17) mg/dL Creatinine 1.23 H (0.52-1.04) mg/dL Glucose 119 H (74-99) mg/dL POC Glucose (mg/dL) 125 H (75-99) mg/dL Total Protein 5.4 L (6.3-8.2) g/dL Albumin 3.2 L (3.5-5.0) g/dL Assessment and Plan Assessment: 1. Chest pain with cough: Pain is likely musculoskeletal secondary to patient's cough. Mildly elevated troponins are likely related to renal insufficiency. Patient seen evaluated by cardiology. EKG showing atrial fibrillation with a heart rate of 83. 2. Possible bronchitis versus early pneumonia: Start patient on Rocephin. Azithromycin interacts with her Lexapro. Continue Rocephin for now. Check sputum culture. Add DuoNeb updrafts. Evaluated by pulmonary service 3. Acute Asthma and COPD exacerbation. Continue DuoNeb updrafts 4 times a day and as needed. Patient evaluated by pulmonary service. They Added IV Solu- Medrol 4. Chronic elevation of the right hemidiaphragm which may be due to diaphragmatic paralysis on the right from previous coronary artery bypass surgery versus other etiology. Seen evaluated by pulmonary service. They've ordered a sniff test 5. Falling with 3 falls in the last 2 months. Patient does have significant bruising along the left knee and lower leg and ankle. Left knee showing a small to moderate knee joint effusion. Left knee also had soft tissue swelling could represent contusion, hematoma or MCL injury. No fractures noted in the left knee, tibia or fibula or left ankle. Per orthopedic service is planning aspiration and cortisone injection today 6. History of coronary artery disease with history of CABG and cardiac stent 7. History of myocardial infarction 8. History of chronic kidney disease, stage III. Creatinine 1.23 we'll continue to monitor 9. Hypothyroidism continue Synthroid 10. Chronic atrial fibrillation heart rate controlled. Patient not on anticoagulation due to high risk of bleeding in the past due to falls 11. History of chronic diastolic CHF. Continue with her oral Lasix 12. Shortness of breath is likely related to patient's possible pneumonia and asthma with COPD exacerbation 13. Elevated d-dimer CTA of the chest negative for PE. Venous Doppler negative for DVT bilateral lower extremities Continue PT OT GI prophylaxis Pepcid and DVT prophylaxis SCDs I performed an examination of the patient and discussed their management with the Nurse Practitioner. I have reviewed the Nurse Practitioner's notes and agree with the documented findings and plan of care
[2018-09-16 12:02] LABS: Glucose,Whole Blood 137 mg/dL (75-99)
[2018-09-16] MEDS: CYANOCOBALAMIN 500 MCG TAB PO SCH (12:17)
--- NOTE | 2018-09-16 13:12 | ECHOF ---
Referral Reason:sob MEASUREMENTS -------- HEIGHT: 160.0 cm WEIGHT: 79.8 kg BP: 110/53 RVIDd: 3.5 cm (< 3.3) IVSd: 1.4 cm (0.6 - 1.1) LVIDd: 3.6 cm (3.9 - 5.3) LVPWd: 1.6 cm (0.6 - 1.1) IVSs: 1.9 cm LVIDs: 3.3 cm LVPWs: 2.2 cm LA Diam: 5.1 cm (2.7 - 3.8) LAESV Index (A-L): 54.90 ml/m Ao Diam: 3.5 cm (2.0 - 3.7) AV Cusp: 1.9 cm (1.5 - 2.6) MV EXCURSION: 18.742 mm (> 18.000) MV EF SLOPE: 129 mm/s (70 - 150) EPSS: 0.7 cm RAP: 5.00 mmHg RVSP: 43.59 mmHg FINDINGS -------- Atrial fibrillation. This was a technically adequate study. The left ventricular size is normal. There is moderate concentric left ventricular hypertrophy. O verall left ventricular systolic function is normal with, an EF between 55 - 60 %. The right ventricle is mildly enlarged. LA is severely dilated >40 ml/m2 The right atrium is normal in size. There is mild aortic valve sclerosis. The mitral valve leaflets are mildly thickened. Mild mitral annular calcification present. Severe mitral regurgitation is present. Mild tricuspid regurgitation present. There is mild pulmonary hypertension. The right ventricular systolic pressure, as measured by Doppler, is 43.59mmHg. Trace/mild (physiologic) pulmonic regurgitation. The aortic root size is normal. Normal inferior vena cava with normal inspiratory collapse consistent with estimated right atrial pre ssure of 5 mmHg. There is no pericardial effusion. CONCLUSIONS -------- 1. Atrial fibrillation. 2. This was a technically adequate study. 3. The left ventricular size is normal. 4. There is moderate concentric left ventricular hypertrophy. 5. Overall left ventricular systolic function is normal with, an EF between 55 - 60 %. 6. The right ventricle is mildly enlarged. 7. LA is severely dilated >40 ml/m2 8. There is mild aortic valve sclerosis. 9. The mitral valve leaflets are mildly thickened. 10. Mild mitral annular calcification present. 11. Severe mitral regurgitation is present. 12. Mild tricuspid regurgitation present. 13. There is mild pulmonary hypertension. 14. Trace/mild (physiologic) pulmonic regurgitation. 15. The aortic root size is normal. 16. Normal inferior vena cava with normal inspiratory collapse consistent with estimated right atrial pressure of 5 mmHg. 17. There is no pericardial effusion. ELECTROPLATING TECHNICIAN: Roxana Thompson RDCS
--- NOTE | 2018-09-16 13:37 | PN ---
PROGRESS NOTE She has been having some chest tightness today with increasing shortness of breath and wheezing. On physical examination, her respiratory rate is 20, pulse rate of 64, temperature 98.3, blood pressure 113/56, O2 sat on 2 L by nasal cannula is 96%. HEENT reveals pupils are equal. Chest reveals decreased breath sounds. Prolonged expiration with expiratory wheeze. Cardiovascular system reveals an S1, S2. Abdomen is soft. There is 1+ pedal edema. Sniff study done on 09/15 shows paralysis of the right hemidiaphragm. There was no paradoxical motion noted, however. 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 Would continue IV steroids, bronchodilators, aerosolized steroids, optimize the fluid status and may benefit from outpatient pulmonary rehab for respiratory muscle strengthening if she is able to. She was counseled regarding her condition and this approach. Would defer to Cardiology regarding her chest pain at this time. MMODL / IJN: [id number] /
[2018-09-16 16:49] LABS: Glucose,Whole Blood 131 mg/dL (75-99)
[2018-09-16] MEDS ORDERED: HYDROcodone/APAP 7.5-325MG 1 EACH TAB PO PRN (20:15)
[2018-09-16] MEDS: MONTELUKAST 10 MG TAB PO SCH (20:35)
[2018-09-16 20:36] LABS: Glucose,Whole Blood 118 mg/dL (75-99)
[2018-09-17] MEDS: methylPREDNISolone SOD SUCCI 125 MG/2 ML VIAL IV SCH ×5 (00:29→23:34)
[2018-09-17] MEDS: ALPRAZolam 0.25 MG TAB PO PRN (00:30)
[2018-09-17] MEDS: LEVOTHYROXINE 137 MCG TAB PO SCH (06:16)
[2018-09-17 06:20] LABS: Glucose,Whole Blood 119 mg/dL (75-99)
[2018-09-17] MEDS: INSULIN ASPART (NovoLOG) 100 UNIT/ML VIAL SQ SCH ×4 (06:30→20:37)
[2018-09-17 06:59] LABS: Anisocytosis Slight; Basophils % (A) 0 %; Eosinophils % (A) 0 %; HCT 39.1 % (34.0-46.0); Hypochromasia Slight; Lymphocytes # (A) 0.4 k/uL (1.0-4.8); Lymphocytes % (A) 4 %; MCH 31.9 pg (25.0-35.0); MCHC 30.6 g/dL (31.0-37.0); MCV 104.1 fL (80.0-100.0); Macrocytosis Moderate; Mean Platelet Volume 7.4; Monocytes # (A) 0.2 k/uL (0-1.0); Monocytes % (A) 2 %; Neutrophils # (A) 9.5 k/uL (1.3-7.7); Neutrophils % (A) 94 %; Platelet Count 248 k/uL (150-450); RBC 3.76 m/uL (3.80-5.40); RDW 16.8 % (11.5-15.5); WBC 10.1 k/uL (3.8-10.6)
[2018-09-17 07:07] LABS: Albumin 3.9 g/dL (3.5-5.0); Calcium 9.5 mg/dL (8.4-10.2); Potassium 4.5 mmol/L (3.5-5.1); Total Bilirubin 0.5 mg/dL (0.2-1.3); Total Protein 6.2 g/dL (6.3-8.2)
[2018-09-17] MEDS: IPRATROPIUM-ALBUTEROL 3 ML NEB INHALATION SCH ×4 (07:12→19:20)
[2018-09-17] MEDS: BUDESONIDE 0.5 MG/2 ML NEBU INHALATION SCH ×2 (07:12→19:20)
[2018-09-17] MEDS: FUROSEMIDE 20 MG TAB PO SCH (08:30)
[2018-09-17] MEDS: ALLOPURINOL 300 MG TAB PO SCH (08:30)
[2018-09-17] MEDS: METOPROLOL TARTRATE 25 MG TAB PO SCH ×2 (08:31→20:16)
[2018-09-17] MEDS: FAMOTIDINE 20 MG TAB PO SCH (08:31)
[2018-09-17] MEDS: CHOLECALCIFEROL 1,000 UNIT TAB PO SCH (08:31)
[2018-09-17] MEDS: ESCITALOPRAM 10 MG TAB PO SCH (08:31)
[2018-09-17] MEDS: ASPIRIN 81 MG PO SCH (08:31)
--- NOTE | 2018-09-17 11:38 | P.PN ---
Subjective Progress Note Date: 09/17/18 Principal diagnosis: Status post aspiration prepatellar bursa left knee Patient evaluated at bedside. She is resting comfortably. She denies any acute pain involving the left knee. Objective - Vital Signs Vital signs: Vital Signs Temp 97.6 F 09/17/18 11:28 Pulse 67 09/17/18 11:28 Resp 20 09/17/18 11:28 BP 130/59 09/17/18 11:28 Pulse Ox 95 09/17/18 11:28 Intake & Output 09/16/18 09/17/18 09/17/18 18:59 06:59 18:59 Intake Total 650 240 Balance 650 240 Weight 78.8 kg Intake: Intake, IV Titration 50 Amount cefTRIAXone 1 gm In 50 Sodium Chloride 0.9% 50 ml @ 100 mls/hr IVPB Q24HR [facility] Rx#:[id number] Oral 600 240 Other: Voiding Method Toilet # Voids 1 1 - Exam Left lower extremity: Luís bandages in good position and condition, minimal swelling present over the prepatellar bursa. Calf is soft, no tenderness with palpation. - Labs CBC & Chem 7: 09/17/18 06:03 09/17/18 06:03 Labs: Abnormal Lab Results - Last 24 Hours (Table) 09/16/18 09/16/18 09/16/18 Range/Units 11:41 16:47 20:32 RBC (3.80-5.40) m/uL MCV (80.0-100.0) fL MCHC (31.0-37.0) g/dL RDW (11.5-15.5) % Neutrophils # (1.3-7.7) k/uL Lymphocytes # (1.0-4.8) k/uL BUN (7-17) mg/dL Creatinine (0.52-1.04) mg/dL Glucose (74-99) mg/dL POC Glucose (mg/dL) 137 H 131 H 118 H (75-99) mg/dL Total Protein (6.3-8.2) g/dL 09/17/18 09/17/18 09/17/18 Range/Units 06:03 06:03 06:19 RBC 3.76 L (3.80-5.40) m/uL MCV 104.1 H (80.0-100.0) fL MCHC 30.6 L (31.0-37.0) g/dL RDW 16.8 H (11.5-15.5) % Neutrophils # 9.5 H (1.3-7.7) k/uL Lymphocytes # 0.4 L (1.0-4.8) k/uL BUN 57 H (7-17) mg/dL Creatinine 1.23 H (0.52-1.04) mg/dL Glucose 106 H (74-99) mg/dL POC Glucose (mg/dL) 119 H (75-99) mg/dL Total Protein 6.2 L (6.3-8.2) g/dL Assessment and Plan Plan: Assessment: 1. Traumatic left knee prepatellar bursitis 2. Status post aspiration left knee prepatellar bursa Plan: Patient doing well at this time, recommended continuous use of Luís bandage over prepatellar bursa Weight-bear as tolerated Plan for follow-up at [facility] in 2 weeks Time with Patient: Less than 30
[2018-09-17 11:47] LABS: Glucose,Whole Blood 108 mg/dL (75-99)
[2018-09-17] MEDS: CYANOCOBALAMIN 500 MCG TAB PO SCH (12:11)
--- NOTE | 2018-09-17 14:26 | P.PN ---
Subjective Progress Note Date: 09/17/18 This is a 83-year-old female, patient of Dr. Kuhn. She has a known past medical history of myocardial infarction, coronary disease with previous CABG and cardiac stents, COPD, congestive heart failure, chronic kidney disease, atrial fibrillation with previous cardiac ablation, depression, hypertension and hypothyroidism. Patient also has a past history of smoking. She presents to emergency room with complaints of cough and chest pain. Patient reports that she has chest pains across her chest when she coughs. Symptoms started yesterday. She also reports over the last couple months she's had 3 falls. Last fall was about 10 days ago. She reports that she just feels weak and goes down. When she falls, she has fallen flat on her chest. She denies any chest pain during the following episodes. Denies any syncopal episodes. Denies any dizziness or lightheadedness. Patient has significant bruising and swelling noted in the left knee left lower leg and ankle area. She is reporting numbness in both legs which is chronic for her. Patient does report having previous lower back surgery. Patient denies any radiation of the chest pain into the arm or neck. She does admit to some shortness of breath. She does wear oxygen at home she is unsure of how many liters. Cardiology and pulmonary service have been placed on consult for the chest pain and cough. She did have a troponin of 0.04 to further cardiac enzymes are pending. Chest x-ray had shown atrial fibrillation with a controlled heart rate of 83. Chest x-ray showing chronic changes. At the right hemidiaphragm is persistently elevated. One possibility is hemidiaphragmatic paralysis. Otherwise there is patchy posterior basilar atelectasis or early infiltrate. Patient does report that the cough is productive. She denies any fever or chills or sweats. Denies any muscle aches or pains. Denies any nausea vomiting bowel movement changes or urinary symptoms. She's been started on Rocephin and azithromycin for possible bronchitis and early developing pneumonia. Pulmonary is been placed on consult. 09/15/18 Patient still has cough. She does report have some improvement in shortness of breath. She is followed by pulmonary and cardiology. CTA negative for PE. X-ray left knee [id number] knee joint effusion. No displaced fracture. Left knee showing marked medial side soft tissue swelling that could represent contusion, hematoma or MCL injury. Left ankle showing scattered degenerative changes with joint space narrowing. Patient denies any chest pain. Denies any nausea or vomiting. Denies any bowel movement changes or urinary symptoms. On 09/16/2018 Patient alert and oriented 3 resting comfortably in bed. Orthopedic services planning aspiration and cortisone injection today. This laura e patient denies any chest pain or shortness breath. Patient denies nausea vomiting or diarrhea. Patient denies any urinary burning or frequency. Patient remains on IV Rocephin and Solu-Medrol On 09/17/2018 Patient alert and oriented 3 sitting up in a chair, she denies any complaints at this time, knee pain improved significantly after the aspiration, shortness of breath and cough has improved, there is no fever or chills no headache or dizziness no chest pain no nausea or vomiting no abdominal pain no diarrhea and no urinary symptoms, patient has been ambulating, she is questioning need for rehab, and asking if she can be discharged to her home tomorrow. Objective - Vital Signs Vital signs: Vital Signs Temp 97.6 F 09/17/18 11:28 Pulse 67 09/17/18 11:28 Resp 20 09/17/18 11:28 BP 130/59 09/17/18 11:28 Pulse Ox 95 09/17/18 11:28 Intake & Output 09/16/18 09/17/18 09/17/18 18:59 06:59 18:59 Intake Total 650 530 Output Total 300 Balance 650 230 Weight 78.8 kg Intake: Intake, IV Titration 50 50 Amount cefTRIAXone 1 gm In 50 50 Sodium Chloride 0.9% 50 ml @ 100 mls/hr IVPB Q24HR [facility] Rx#:[id number] Oral 600 480 Output: Urine 300 Other: Voiding Method Toilet # Voids 1 1 - Exam Head normocephalic and atraumatic Neck supple no JVD no goiter Lungs expiratory wheezing with coarse breath sounds bilaterally Heart regular rate and rhythm S1-S2, no rub or gallop Abdomen is soft nontender nondistended positive bowel sounds no hepatosplenomegaly Extremities no edema no cyanosis or clubbing Neuro alert and orientated to 3 - Labs CBC & Chem 7: 09/17/18 06:03 09/17/18 06:03 Labs: Abnormal Lab Results - Last 24 Hours (Table) 04/09/16/18 09/17/18 Range/Units 16:47 20:32 06:03 RBC 3.76 L (3.80-5.40) m/uL MCV 104.1 H (80.0-100.0) fL MCHC 30.6 L (31.0-37.0) g/dL RDW 16.8 H (11.5-15.5) % Neutrophils # 9.5 H (1.3-7.7) k/uL Lymphocytes # 0.4 L (1.0-4.8) k/uL BUN (7-17) mg/dL Creatinine (0.52-1.04) mg/dL Glucose (74-99) mg/dL POC Glucose (mg/dL) 131 H 118 H (75-99) mg/dL Total Protein (6.3-8.2) g/dL 09/17/18 09/17/18 09/17/18 Range/Units 06:03 06:19 11:44 RBC (3.80-5.40) m/uL MCV (80.0-100.0) fL MCHC (31.0-37.0) g/dL RDW (11.5-15.5) % Neutrophils # (1.3-7.7) k/uL Lymphocytes # (1.0-4.8) k/uL BUN 57 H (7-17) mg/dL Creatinine 1.23 H (0.52-1.04) mg/dL Glucose 106 H (74-99) mg/dL POC Glucose (mg/dL) 119 H 108 H (75-99) mg/dL Total Protein 6.2 L (6.3-8.2) g/dL Assessment and Plan Plan: 1. Chest pain with cough: Pain is likely musculoskeletal secondary to patient's cough. Mildly elevated troponins are likely related to renal insufficiency. Patient seen evaluated by cardiology. EKG showing atrial fibrillation with a heart rate of 83. 2. Possible bronchitis versus early pneumonia: Start patient on Rocephin. Azithromycin interacts with her Lexapro. Continue Rocephin for now. Check sputum culture. Add DuoNeb updrafts. Evaluated by pulmonary service 3. Acute Asthma and COPD exacerbation. Continue DuoNeb updrafts 4 times a day and as needed. Patient evaluated by pulmonary service. They Added IV Solu- Medrol 4. Chronic elevation of the right hemidiaphragm which may be due to diaphragmatic paralysis on the right from previous coronary artery bypass surgery versus other etiology. Seen evaluated by pulmonary service. They've ordered a sniff test 5. Falling with 3 falls in the last 2 months. Patient does have significant bruising along the left knee and lower leg and ankle. Left knee showing a small to moderate knee joint effusion. Left knee also had soft tissue swelling could represent contusion, hematoma or MCL injury. No fractures noted in the left knee, tibia or fibula or left ankle. Per orthopedic service is planning aspiration and cortisone injection today 6. History of coronary artery disease with history of CABG and cardiac stent 7. History of myocardial infarction 8. History of chronic kidney disease, stage III. Creatinine 1.23 we'll continue to monitor 9. Hypothyroidism continue Synthroid 10. Chronic atrial fibrillation heart rate controlled. Patient not on anticoagulation due to high risk of bleeding in the past due to falls 11. History of chronic diastolic CHF. Continue with her oral Lasix 12. Shortness of breath is likely related to patient's possible pneumonia and asthma with COPD exacerbation 13. Elevated d-dimer CTA of the chest negative for PE. Venous Doppler negative for DVT bilateral lower extremities Continue PT OT GI prophylaxis Pepcid and DVT prophylaxis SCDs Patient is improving will increase activity possible discharge tomorrow
--- NOTE | 2018-09-17 16:30 | PN ---
PROGRESS NOTE DATE OF SERVICE: August2018. She has been hemodynamically stable. She is less short of breath and has less wheezing today. On physical examination her respiratory rate is 20, pulse rate of 67, temperature 97.6, blood pressure 130/59. HEENT: Reveals no new changes. CHEST: Reveals wheeze only on forced exhalation. CARDIOVASCULAR: S1, S2. ABDOMEN: Soft. EXTREMITIES: There is trace pedal edema. LABS: Revealed a white count of 10.1, hemoglobin of 12. Sodium 139, potassium 4.5, chloride 103, bicarb 29, BUN 57, creatinine 1.23. IMPRESSION: At this time: 1. Congestive heart failure. 2. Asthma with exacerbation. 3. Right diaphragmatic paralysis. Continue steroids, bronchodilators, aerosolized steroids. Keep her in negative fluid balance. Increase activity level. Her prognosis at this time is fair. MMSHARONL / IJN: [id number] /
[2018-09-17 16:46] LABS: Glucose,Whole Blood 104 mg/dL (75-99)
[2018-09-17] MEDS: MONTELUKAST 10 MG TAB PO SCH (20:16)
[2018-09-17 20:27] LABS: Glucose,Whole Blood 138 mg/dL (75-99)
[2018-09-18 04:30] VITALS: TEMP 97.6
[2018-09-18] MEDS: methylPREDNISolone SOD SUCCI 125 MG/2 ML VIAL IV SCH ×2 (06:15→12:06)
[2018-09-18] MEDS: LEVOTHYROXINE 137 MCG TAB PO SCH (06:15)
[2018-09-18 06:28] LABS: Anisocytosis Slight; Basophils % (A) 0 %; Eosinophils % (A) 0 %; HCT 34.8 % (34.0-46.0); HGB 10.9 gm/dL (11.4-16.0); Hypochromasia Slight; Lymphocytes # (A) 0.2 k/uL (1.0-4.8); Lymphocytes % (A) 4 %; MCH 32.2 pg (25.0-35.0); MCHC 31.4 g/dL (31.0-37.0); MCV 102.6 fL (80.0-100.0); Macrocytosis Moderate; Mean Platelet Volume 7.5; Monocytes # (A) 0.1 k/uL (0-1.0); Monocytes % (A) 3 %; Neutrophils # (A) 5.1 k/uL (1.3-7.7); Neutrophils % (A) 93 %; Platelet Count 174 k/uL (150-450); RDW 16.7 % (11.5-15.5); WBC 5.4 k/uL (3.8-10.6)
[2018-09-18 06:37] LABS: Glucose,Whole Blood 105 mg/dL (75-99)
[2018-09-18] MEDS: INSULIN ASPART (NovoLOG) 100 UNIT/ML VIAL SQ SCH ×2 (06:43→12:01)
[2018-09-18 06:50] LABS: Albumin 3.2 g/dL (3.5-5.0); Calcium 9.3 mg/dL (8.4-10.2); Potassium 4.1 mmol/L (3.5-5.1); Total Bilirubin 0.4 mg/dL (0.2-1.3); Total Protein 5.3 g/dL (6.3-8.2)
[2018-09-18] MEDS: IPRATROPIUM-ALBUTEROL 3 ML NEB INHALATION SCH ×3 (07:51→15:38)
[2018-09-18] MEDS: BUDESONIDE 0.5 MG/2 ML NEBU INHALATION SCH (07:52)
[2018-09-18] MEDS: FAMOTIDINE 20 MG TAB PO SCH (08:14)
[2018-09-18] MEDS: CHOLECALCIFEROL 1,000 UNIT TAB PO SCH (08:14)
[2018-09-18] MEDS: ALLOPURINOL 300 MG TAB PO SCH (08:14)
[2018-09-18] MEDS: CYANOCOBALAMIN 500 MCG TAB PO SCH (08:14)
[2018-09-18] MEDS: FUROSEMIDE 20 MG TAB PO SCH (08:14)
[2018-09-18] MEDS: ASPIRIN 81 MG PO SCH (08:14)
[2018-09-18] MEDS: ESCITALOPRAM 10 MG TAB PO SCH (08:14)
[2018-09-18] MEDS: METOPROLOL TARTRATE 25 MG TAB PO SCH (08:16)
[2018-09-18 08:26] VITALS: RESP 16
[2018-09-18 11:41] LABS: Glucose,Whole Blood 100 mg/dL (75-99)
[2018-09-18 12:07] VITALS: BP 109/56
[2018-09-18 14:30] LABS: Alt. alternata IgE Class CLASS 0; Alternaria alternata IgE <0.35 kU/L (<0.35); Asperg. fumagatus IgE <0.35 kU/L (<0.35); Asperg. fumagatus IgE Class CLASS 0; Bermuda Grass IgE <0.35 kU/L (<0.35); Birch(Com.Silvr) IgE <0.35 kU/L (<0.35); Birch(Com.Silvr) IgE Class CLASS 0; Cat Epith & Dander IgE <0.35 kU/L (<0.35); Cat Epith & Dander IgE Class CLASS 0; Clad herbarum IgE <0.35 kU/L (<0.35); Cockroach IgE <0.35 kU/L (<0.35); Cottonwood IgE <0.35 kU/L (<0.35); Dermato. Pteronyssinus IgE <0.35 kU/L (<0.35); Dermato. farinae IgE <0.35 kU/L (<0.35); Dermato. farinae IgE Class CLASS 0; Dog Dander IgE <0.35 kU/L (<0.35); Elm IgE <0.35 kU/L (<0.35); Maple (Box Elder) IgE <0.35 kU/L (<0.35); Maple (Box Elder) IgE Class CLASS 0; Mountain Cedar IgE <0.35 kU/L (<0.35); Mountain Cedar IgE Class CLASS 0; Mouse Urine IgE Class CLASS 0; Nettle IgE <0.35 kU/L (<0.35); Nettle IgE Class CLASS 0; Oak IgE <0.35 kU/L (<0.35); Penicillium notatum IgE Class CLASS 0; Rough Marshelder IgE <0.35 kU/L (<0.35); Rough Marshelder IgE Class CLASS 0; Timothy Grass IgE <0.35 kU/L (<0.35); White Ash IgE Class CLASS 0
--- NOTE | 2018-09-18 14:42 | P.DS ---
Providers Date of admission: 09/14/18 11:40 Expected date of discharge: 09/18/18 Attending physician: Susan Virk Consults: 09/14/18 11:40 Consult Physician Urgent Consulting Provider: Raúl Garcia Consult Reason/Comments: cp Do you want consulting provider notified?: Yes 09/14/18 13:17 Consult Physician Routine Consulting Provider: Urmila Jackson Consult Reason/Comments: abnormal CXR Do you want consulting provider notified?: Yes 09/15/18 14:51 Consult Physician Routine Consulting Provider: Luciano Weaver Consult Reason/Comments: left knee effusion Do you want consulting provider notified?: Yes Primary care physician: Tiera Kuhn Hospital Course: Discharge diagnosis 1. Chest pain with cough: Pain is likely musculoskeletal secondary to patient's cough. Mildly elevated troponins are likely related to renal insufficiency. Patient seen evaluated by cardiology. Acute coronary syndrome ruled out. EKG showing atrial fibrillation with a heart rate of 83. 2. Possible bronchitis versus early pneumonia: Patient seen evaluated by pulmonary service. Treated with Rocephin. She'll continue Ceftin for 3 more days. 3. Acute Asthma and COPD exacerbation. Continue nebulizer and prednisone at discharge 4. Chronic elevation of the right hemidiaphragm which may be due to diaphragmatic paralysis on the right from previous coronary artery bypass surgery versus other etiology. Seen evaluated by pulmonary service. Sniff test shows paralysis of the right diaphragm. No paradoxical motion identified. 5. Falling with 3 falls in the last 2 months. Traumatic left knee prepatellar bursitis and status post aspiration and cortisone injection of the knee. Patient evaluated by orthopedics they've recommended tenuous use of Luís bandage over prepatellar bursa. No follow-up with her in the office in 2 weeks. 6. History of coronary artery disease with history of CABG and cardiac stent 7. History of myocardial infarction 8. History of chronic kidney disease, stage III. 9. Hypothyroidism continue Synthroid 10. Chronic atrial fibrillation heart rate controlled. Patient not on anticoagulation due to high risk of bleeding in the past due to falls 11. History of chronic diastolic CHF. Continue with her oral Lasix 12. Shortness of breath is likely related to patient's possible pneumonia and asthma with COPD exacerbation 13. Elevated d-dimer CTA of the chest negative for PE. Venous Doppler negative for DVT bilateral lower extremities Hospital course This is a 83-year-old female, patient of Dr. Kuhn. She has a known past medical history of myocardial infarction, coronary disease with previous CABG and cardiac stents, COPD, congestive heart failure, chronic kidney disease, atrial fibrillation with previous cardiac ablation, depression, hypertension and hypothyroidism. Patient also has a past history of smoking. She presents to emergency room with complaints of cough and chest pain. Patient reports that she has chest pains across her chest when she coughs. Symptoms started yesterday. She also reports over the last couple months she's had 3 falls. Last fall was about 10 days ago. She reports that she just feels weak and goes down. When she falls, she has fallen flat on her chest. She denies any chest pain during the following episodes. Denies any syncopal episodes. Denies any dizziness or lightheadedness. Patient has significant bruising and swelling noted in the left knee left lower leg and ankle area. She is reporting numbness in both legs which is chronic for her. Patient does report having previous lower back surgery. Patient denies any radiation of the chest pain into the arm or neck. She does admit to some shortness of breath. She does wear oxygen at home she is unsure of how many liters. Cardiology and pulmonary service have been placed on consult for the chest pain and cough. She did have a troponin of 0.04 to further cardiac enzymes are pending. Chest x-ray had shown atrial fibrillation with a controlled heart rate of 83. Chest x-ray showing chronic changes. At the right hemidiaphragm is persistently elevated. One possibility is hemidiaphragmatic paralysis. Otherwise there is patchy posterior basilar atelectasis or early infiltrate. Patient does report that the cough is productive. She denies any fever or chills or sweats. Denies any muscle aches or pains. Denies any nausea vomiting bowel movement changes or urinary symptoms. She's been started on Rocephin and azithromycin for possible bronchitis and early developing pneumonia. Pulmonary is been placed on consult. 09/15/18 Patient still has cough. She does report have some improvement in shortness of breath. She is followed by pulmonary and cardiology. CTA negative for PE. X-ray left knee [id number] knee joint effusion. No displaced fracture. Left knee showing marked medial side soft tissue swelling that could represent contusion, hematoma or MCL injury. Left ankle showing scattered degenerative changes with joint space narrowing. Patient denies any chest pain. Denies any nausea or vomiting. Denies any bowel movement changes or urinary symptoms. On 09/16/2018 Patient alert and oriented 3 resting comfortably in bed. Orthopedic services planning aspiration and cortisone injection today. This time patient denies any chest pain or shortness breath. Patient denies nausea vomiting or diarrhea. Patient denies any urinary burning or frequency. Patient remains on IV Rocephin and Solu-Medrol On 09/17/2018 Patient alert and oriented 3 sitting up in a chair, she denies any complaints at this time, knee pain improved significantly after the aspiration, shortness of breath and cough has improved, there is no fever or chills no headache or dizziness no chest pain no nausea or vomiting no abdominal pain no diarrhea and no urinary symptoms, patient has been ambulating, she is questioning need for rehab, and asking if she can be discharged to her home t omorrow. 09/18/2018 patient has been cleared by consulting physicians for discharge. Her shortness of breath has improved. During this admission she was treated for possible bronchitis and her left knee prepatellar bursitis. We'll continue Ceftin for 3 more days to complete treatment for her bronchitis and possible early pneumonia. Her cough and shortness of breath improved greatly. There is no evidence of acute coronary syndrome on admission she was evaluated by cardiology. Patient was evaluated by PT OT services they were recommending subacute rehab. Patient refused subacute rehab. Patient will continue antibiotics and a prednisone taper. Follow-up with cardiology pulmonary and orthopedics in the outpatient setting. Patient was encouraged to attend a subacute rehab. Patient did refuse ECF placement. She is stable for discharge. I performed an examination of the patient and discussed their management with the physician Gaming Table Operator. I have reviewed the Physician Gaming Table Operator's notes and agree with the documented findings and plan of care Patient Condition at Discharge: Stable Plan - Discharge Summary Discharge Rx Participant: No New Discharge Prescriptions: New Cefuroxime Axetil [Ceftin] 500 mg PO BID 3 Days #6 tab predniSONE 10 mg PO DIRECTED #30 tab Montelukast [Singulair] 10 mg PO HS #30 tab Continue Cyanocobalamin [Vitamin B-12] 500 mcg PO DAILY Aspirin [Adult Low Dose Aspirin EC] 81 mg PO BID Levothyroxine Sodium [Synthroid] 68.5 mcg PO Q48H Albuterol Nebulized [Ventolin Nebulized] 2.5 mg INHALATION RT-Q4H PRN PRN Reason: Cough Allopurinol [Zyloprim] 300 mg PO DAILY ALPRAZolam [Xanax] 0.25 mg PO Q6H PRN PRN Reason: Anxiety Cholecalciferol [Vitamin D3] 1,000 unit PO DAILY Escitalopram [Lexapro] 10 mg PO DAILY Levothyroxine Sodium [Synthroid] 137 mcg PO Q48H Metoprolol Tartrate [Lopressor] 75 mg PO BID Nitroglycerin Sl Tabs [Nitrostat] 0.4 mg SUBLINGUAL Q5M PRN PRN Reason: Chest Pain Furosemide [Lasix] 60 mg PO DAILY Discharge Medication List Cyanocobalamin [Vitamin B-12] 500 mcg PO DAILY 10/03/13 [History] Aspirin [Adult Low Dose Aspirin EC] 81 mg PO BID 01/10/16 [History] Levothyroxine Sodium [Synthroid] 68.5 mcg PO Q48H 03/16/16 [History] ALPRAZolam [Xanax] 0.25 mg PO Q6H PRN 07/20/18 [History] Albuterol Nebulized [Ventolin Nebulized] 2.5 mg INHALATION RT-Q4H PRN 07/20/18 [History] Allopurinol [Zyloprim] 300 mg PO DAILY 07/20/18 [History] Cholecalciferol [Vitamin D3] 1,000 unit PO DAILY 07/20/18 [History] Escitalopram [Lexapro] 10 mg PO DAILY 07/20/18 [History] Levothyroxine Sodium [Synthroid] 137 mcg PO Q48H 07/20/18 [History] Metoprolol Tartrate [Lopressor] 75 mg PO BID 07/20/18 [History] Nitroglycerin Sl Tabs [Nitrostat] 0.4 mg SUBLINGUAL Q5M PRN 07/20/18 [History] Furosemide [Lasix] 60 mg PO DAILY 09/14/18 [History] Cefuroxime Axetil [Ceftin] 500 mg PO BID 3 Days #6 tab 09/18/18 [Rx] Montelukast [Singulair] 10 mg PO HS #30 tab 09/18/18 [Rx] predniSONE 10 mg PO DIRECTED #30 tab 04/29/19 [Rx] Follow up Appointment(s)/Referral(s): Irvin Aviles PAC [PHYSICIAN ENGINEERING DESIGNER] - 2 Weeks Tiera Kuhn MD [Primary Care Provider] - 3 Days Ricardo Green MD [STAFF PHYSICIAN] - 1 Week Raúl Garcia MD [STAFF PHYSICIAN] - 1 Week Activity/Diet/Wound Care/Special Instructions: Diet: cardiac Activity: as tolerated Discharge Disposition: HOME WITH HOME HEALTH SERVICES
[2018-09-18 15:51] VITALS: PULSE 92
--- NOTE | 2018-09-18 16:38 | PN ---
PROGRESS NOTE DATE OF SERVICE: 09/18/2018 She was seen on August2018. She continues to have shortness of breath and some wheezing, but is doing significantly better overall. On physical examination, respiratory rate is 16, pulse rate of 69, blood pressure 109/56, O2 saturation on 2 L nasal cannula is 97%. HEENT is unremarkable. CHEST reveals faint expiratory wheeze. CARDIOVASCULAR SYSTEM is S1, S2. ABDOMEN is soft. EXTREMITIES: There is no edema. Labs were reviewed. IMPRESSION: At this time: 1. Congestive heart failure. 2. Asthma with acute exacerbation. I agree with possible discharge planning with close outpatient followup. Taper her steroids. Optimize the fluid balance which can be done as an outpatient. I would like to thank you for allowing us to participate in her care. MANOJ / ROSA MARIA: [id number] /
[2018-09-20 14:45] LABS: Alternaria Alternata IgG 2.4 mcg/mL (< 13.6); Aspergillus fumigatus IgG Not detected (Not detected); Aureobasidium pullulans IgG 3.2 mcg/mL (< 13.6); Cladosporium herbarium IgG 25.4 mcg/mL (< 14.7); Phoma ssp. IgG 5.9 mcg/mL (< 6.6); Saccaharomospora viridis Not detected (Not detected); Saccaharopoly. rectivirgula Not detected (Not detected)
== END 2018-09-18 16:23 | disposition home health service (06) | DRG 190 ==
LOC: EC 09:22 → 3SCARD 11:40 → UNDOADMIN 11:40
PROVIDERS: ADMIT Internal Medicine; ATTEND Internal Medicine
PROC: 0S9D3ZZ Drainage of Left Knee Joint, Percutaneous Approach (ICD-10-PCS; principal; 2018-09-16)
DX: J44.1 Chronic obstructive pulmonary disease with (acute) exacerbation (principal); J18.9 Pneumonia, unspecified organism; I50.32 Chronic diastolic (congestive) heart failure; I13.0 Hypertensive heart and chronic kidney disease with heart failure and stage 1 through stage 4 chronic kidney disease, or unspecified chronic kidney disease; I42.9 Cardiomyopathy, unspecified; J45.901 Unspecified asthma with (acute) exacerbation; I48.2 Chronic atrial fibrillation; G62.9 Polyneuropathy, unspecified; M41.9 Scoliosis, unspecified; J98.6 Disorders of diaphragm; N18.3 Chronic kidney disease, stage 3 (moderate); D50.0 Iron deficiency anemia secondary to blood loss (chronic); J44.0 Chronic obstructive pulmonary disease with (acute) lower respiratory infection; I25.10 Atherosclerotic heart disease of native coronary artery without angina pectoris; K21.9 Gastro-esophageal reflux disease without esophagitis; E78.5 Hyperlipidemia, unspecified; E03.9 Hypothyroidism, unspecified; M10.9 Gout, unspecified; F41.9 Anxiety disorder, unspecified; F32.9 Major depressive disorder, single episode, unspecified; S20.219A Contusion of unspecified front wall of thorax, initial encounter; E66.9 Obesity, unspecified; R07.89 Other chest pain; M25.462 Effusion, left knee; M17.12 Unilateral primary osteoarthritis, left knee; M70.42 Prepatellar bursitis, left knee; R74.8 Abnormal levels of other serum enzymes; R79.1 Abnormal coagulation profile; R20.0 Anesthesia of skin; I25.2 Old myocardial infarction; W19.XXXA Unspecified fall, initial encounter; Z99.81 Dependence on supplemental oxygen; Z68.31 Body mass index [BMI] 31.0-31.9, adult; Z79.82 Long term (current) use of aspirin; Z79.890 Hormone replacement therapy; Z79.899 Other long term (current) drug therapy; Z87.01 Personal history of pneumonia (recurrent); Z90.710 Acquired absence of both cervix and uterus; Z90.49 Acquired absence of other specified parts of digestive tract; Z95.1 Presence of aortocoronary bypass graft; Z95.5 Presence of coronary angioplasty implant and graft; Z91.81 History of falling; Z87.81 Personal history of (healed) traumatic fracture; Z98.42 Cataract extraction status, left eye; Z98.41 Cataract extraction status, right eye; Z87.891 Personal history of nicotine dependence; Z86.010 Personal history of colon polyps; Z88.8 Allergy status to other drugs, medicaments and biological substances; Z81.1 Family history of alcohol abuse and dependence
CPT/HCPCS: 36415; 71046; 71250; 71275; 76000; 80053; 80061; 82103; 82550; 82785; 83735; 83880; 84484; 85025; 85379; 85610; 85730; 86001; 86003; 86606; 86609; 87070; 87205; 87502; 93005; 93306; 93970; 94640; 94760; 99285

== ENCOUNTER 2018-10-04 11:06 | Inpatient (IN) | payer MEDICARE, BC ==
[2018-10-04] MEDS ORDERED: FUROSEMIDE 10 MG/ML 4 ML VIAL IV STA (11:41)
--- NOTE | 2018-10-04 11:59 | ED ---
General Adult HPI - General Chief complaint: Shortness of Breath Stated complaint: SOB, sudden weight gain Time Seen by Provider: 10/04/18 11:10 Source: patient, family, RN notes reviewed Mode of arrival: wheelchair Limitations: no limitations - History of Present Illness Initial comments: This is an 83-year-old female who comes in to the emergency department complaining of shortness of breath. Patient states she has history of COPD bypass surgery and history of congestive heart today. Patient states that is due to her Lasix was changed to Demadex. Patient states this occurred 2 weeks ago. Patient states she started having some difficulty breathing yesterday it has gotten worse today she's also had a 7 pound weight gain over the last few days. Patient denies any fever or chills. Patient denies a recent cough. Patient denies any swelling to legs. Patient denies calf tenderness. Patient denies abdominal pain patient denies nausea vomiting diarrhea. His headache patient denies numbness weakness. - Related Data Home Medications Medication Instructions Recorded Confirmed Cyanocobalamin [Vitamin B-12] 500 mcg PO DAILY 10/03/13 10/04/18 Aspirin [Adult Low Dose Aspirin EC] 81 mg PO BID 01/10/16 10/04/18 Levothyroxine Sodium [Synthroid] 68.5 mcg PO Q48H 03/16/16 10/04/18 ALPRAZolam [Xanax] 0.25 mg PO Q6H PRN 07/20/18 10/04/18 Albuterol Nebulized [Ventolin 2.5 mg INHALATION RT-Q4H PRN 07/20/18 10/04/18 Nebulized] Allopurinol [Zyloprim] 300 mg PO DAILY 07/20/18 10/04/18 Cholecalciferol [Vitamin D3 (25 1,000 unit PO DAILY 07/20/18 10/04/18 Mcg = 1000 Iu)] Escitalopram [Lexapro] 10 mg PO DAILY 07/20/18 10/04/18 Levothyroxine Sodium [Synthroid] 137 mcg PO Q48H 07/20/18 10/04/18 Metoprolol Tartrate [Lopressor] 75 mg PO BID 07/20/18 10/04/18 Nitroglycerin Sl Tabs [Nitrostat] 0.4 mg SUBLINGUAL Q5M PRN 07/20/18 10/04/18 Furosemide [Lasix] 60 mg PO DAILY 09/14/18 10/04/18 Previous Rx's Medication Instructions Recorded Montelukast [Singulair] 10 mg PO HS #30 tab 09/18/18 Allergies Allergy/AdvReac Type Severity Reaction Status Date / Time [id number]-Ivi Reductase Allergy Unknown Verified 10/04/18 11:46 Inhibitor Review of Systems ROS Statement: Those systems with pertinent positive or pertinent negative responses have been documented in the HPI. ROS Other: All systems not noted in ROS Statement are negative. Past Medical History Past Medical History: Atrial Fibrillation, Coronary Artery Disease (CAD), Chest Pain / Angina, Heart Failure, COPD, GERD/Reflux, Hyperlipidemia, Myocardial Infarction ([place]), Osteoarthritis (OA), Pneumonia, Renal Disease Additional Past Medical History / Comment(s): Pt recently admitted to [facility] on 07/21/18 with dyspnea r/t CHF/cardiomyopathy and acute on chronic kidney disease. Other hx: Chronic Afib, neuropathy bilateral feet, gout bilateral feet, falls, occasional low back pain with bilateral sciatica with L side worse, hypothyroid, epistaxis with blood loss anemia. Last Myocardial Infarction Date:: 2012 History of Any Multi-Drug Resistant Organisms: None Reported Past Surgical History: Appendectomy, Back Surgery, Cardiac Ablation, Cholecystectomy, Coronary Bypass/CABG, Heart Catheterization With Stent, Hysterectomy Additional Past Surgical History / Comment(s): LOW, 1993 CABG-4 vessels, nasal cauterization, colonoscopy with benign polypectomy, D&C, bilateral cataract removals, R breast benign bx, lumbar laminectomy. Past Anesthesia/Blood Transfusion Reactions: Previous Problems w/ Anesthesia Additional Past Anesthesia/Blood Transfusion Reaction / Comment(s): Pt received blood 02/07/12 without reaction after epistaxis. Date of Last Stent Placement:: 03/2013 Past Psychological History: Anxiety, Depression Smoking Status: Former smoker Past Alcohol Use History: None Reported Past Drug Use History: None Reported - Past Family History Mother Additional Family Medical History / Comment(s): Mother was a heavy drinker. She lived to be in her 80's Father Family Medical History: No Reported History Additional Family Medical History / Comment(s): Father lived to be in his 80's General Exam - General Exam Comments Initial Comments: GENERAL: Patient is well-developed and well-nourished. Patient is nontoxic and well- hydrated and is in no acute distress. ENT: Neck is soft and supple. No significant lymphadenopathy is noted. Oropharynx is clear. Moist mucous membranes. Neck has full range of motion without eliciting any pain. EYES: The sclera were anicteric and conjunctiva were pink and moist. Extraocular movements were intact and pupils were equal round and reactive to light. Eyelids were unremarkable. PULMONARY: Unlabored respirations. She has a few crackles in the bases. CARDIOVASCULAR: Irregular heartbeat. ABDOMEN: Soft and nontender with normal bowel sounds. No palpable organomegaly was noted. There is no palpable pulsatile mass. SKIN: Skin is clear with no lesions or rashes and otherwise unremarkable. NEUROLOGIC: Patient is alert and oriented x3. Cranial nerves II through XII are grossly intact. Motor and sensory are also intact. Normal speech, volume and content. Symmetrical smile. MUSCULOSKELETAL: Normal extremities with adequate strength and full range of motion. 2+ edema LYMPHATICS: No significant lymphadenopathy is noted PSYCHIATRIC: Normal psychiatric evaluation. Limitations: no limitations Course Vital Signs 10/04/18 11:10 Temperature 97.9 F Pulse Rate 65 Respiratory 24 Rate Blood Pressure 114/65 O2 Sat by Pulse 97 Oximetry Medical Decision Making - Medical Decision Making EKG shows atrial fibrillation 65 bpm QRS is 88 QT interval 360 QTC is 370. EKG shows no ST segment elevation or depression. Chest x-ray shows no acute abn ormality. Patient's troponin was mildly elevated. Patient also had some increased edema to the legs. I gave the patient some Lasix in the emergency department. I repeated I spoke with Dr. Virk he agreed to admit the patient admitted the patient I wrote admitting orders I consult cardiology I repeated troponin I gave the patient Lasix and Nitropaste on the floor. - Lab Data Result diagrams: 10/04/18 11:50 10/04/18 11:50 Lab Results 10/04/18 10/04/18 10/04/18 Range/Units 11:50 11:50 11:50 WBC 7.3 (3.8-10.6) k/uL RBC 3.40 L (3.80-5.40) m/uL Hgb 10.8 L (11.4-16.0) gm/dL Hct 35.3 (34.0-46.0) % MCV 104.0 H (80.0-100.0) fL MCH 31.8 (25.0-35.0) pg MCHC 30.6 L (31.0-37.0) g/dL RDW 16.7 H (11.5-15.5) % Plt Count 151 (150-450) k/uL Neutrophils % 82 % Lymphocytes % 11 % Monocytes % 4 % Eosinophils % 2 % Basophils % 0 % Neutrophils # 6.0 (1.3-7.7) k/uL Lymphocytes # 0.8 L (1.0-4.8) k/uL Monocytes # 0.3 (0-1.0) k/uL Eosinophils # 0.1 (0-0.7) k/uL Basophils # 0.0 (0-0.2) k/uL Hypochromasia Slight Anisocytosis Slight Macrocytosis Moderate PT (9.0-12.0) sec INR (<1.2) APTT (22.0-30.0) sec Sodium 140 (137-145) mmol/L Potassium 4.5 (3.5-5.1) mmol/L Chloride 105 (98-107) mmol/L Carbon Dioxide 35 H (22-30) mmol/L Anion Gap 0 mmol/L BUN 25 H (7-17) mg/dL Creatinine 0.92 (0.52-1.04) mg/dL Est GFR (CKD-EPI)AfAm 66 (>60 ml/min/1.73 sqM) Est GFR (CKD-EPI)NonAf 58 (>60 ml/min/1.73 sqM) Glucose 82 (74-99) mg/dL Calcium 9.0 (8.4-10.2) mg/dL Magnesium 2.4 H (1.6-2.3) mg/dL Total Bilirubin 0.8 (0.2-1.3) mg/dL AST 22 (14-36) U/L ALT 23 (9-52) U/L Alkaline Phosphatase 80 (38-126) U/L Troponin I (0.000-0.034) ng/mL NT-Pro-B Natriuret Pep 2230 pg/mL Total Protein 5.3 L (6.3-8.2) g/dL Albumin 3.1 L (3.5-5.0) g/dL 10/04/18 10/04/18 Range/Units 11:50 11:50 WBC (3.8-10.6) k/uL RBC (3.80-5.40) m/uL Hgb (11.4-16.0) gm/dL Hct (34.0-46.0) % MCV (80.0-100.0) fL MCH (25.0-35.0) pg MCHC (31.0-37.0) g/dL RDW (11.5-15.5) % Plt Count (150-450) k/uL Neutrophils % % Lymphocytes % % Monocytes % % Eosinophils % % Basophils % % Neutrophils # (1.3-7.7) k/uL Lymphocytes # (1.0-4.8) k/uL Monocytes # (0-1.0) k/uL Eosinophils # (0-0.7) k/uL Basophils # (0-0.2) k/uL Hypochromasia Anisocytosis Macrocytosis PT 9.5 (9.0-12.0) sec INR 0.9 (<1.2) APTT 22.3 (22.0-30.0) sec Sodium (137-145) mmol/L Potassium (3.5-5.1) mmol/L Chloride (98-107) mmol/L Carbon Dioxide (22-30) mmol/L Anion Gap mmol/L BUN (7-17) mg/dL Creatinine (0.52-1.04) mg/dL Est GFR (CKD-EPI)AfAm (>60 ml/min/1.73 sqM) Est GFR (CKD-EPI)NonAf (>60 ml/min/1.73 sqM) Glucose (74-99) mg/dL Calcium (8.4-10.2) mg/dL Magnesium (1.6-2.3) mg/dL Total Bilirubin (0.2-1.3) mg/dL AST (14-36) U/L ALT (9-52) U/L Alkaline Phosphatase (38-126) U/L Troponin I 0.038 H* (0.000-0.034) ng/mL NT-Pro-B Natriuret Pep pg/mL Total Protein (6.3-8.2) g/dL Albumin (3.5-5.0) g/dL Disposition Clinical Impression: Dyspnea, Pedal edema, Weight gain Disposition: ADMITTED IP TO THIS HOSP Referrals: Tiera Kuhn MD [Primary Care Provider] - 1-2 days Time of Disposition: 13:08
[2018-10-04 12:16] LABS: Anisocytosis Slight; Basophils % (A) 0 %; Eosinophils # (A) 0.1 k/uL (0-0.7); Eosinophils % (A) 2 %; HCT 35.3 % (34.0-46.0); HGB 10.8 gm/dL (11.4-16.0); Hypochromasia Slight; Lymphocytes # (A) 0.8 k/uL (1.0-4.8); Lymphocytes % (A) 11 %; MCH 31.8 pg (25.0-35.0); MCHC 30.6 g/dL (31.0-37.0); Macrocytosis Moderate; Mean Platelet Volume 7.3; Monocytes # (A) 0.3 k/uL (0-1.0); Monocytes % (A) 4 %; Neutrophils % (A) 82 %; Platelet Count 151 k/uL (150-450); RDW 16.7 % (11.5-15.5); WBC 7.3 k/uL (3.8-10.6)
[2018-10-04 12:19] LABS: Albumin 3.1 g/dL (3.5-5.0); Magnesium 2.4 mg/dL (1.6-2.3); Potassium 4.5 mmol/L (3.5-5.1); Total Bilirubin 0.8 mg/dL (0.2-1.3); Total Protein 5.3 g/dL (6.3-8.2)
[2018-10-04 12:20] LABS: INR 0.9 (<1.2); Partial Thromboplastin Time 22.3 sec (22.0-30.0); Prothrombin Time 9.5 sec (9.0-12.0)
--- NOTE | 2018-10-04 12:44 | XR ---
EXAMINATION TYPE: XR chest 2V DATE OF EXAM: 10/04/2018 COMPARISON: 09/14/2018 HISTORY: Difficulty breathing. TECHNIQUE: Frontal and lateral views of the chest are obtained. FINDINGS: There is chronic right hemidiaphragm elevation and chronic interstitial prominence. Cardio mediastinal silhouette is stable and mildly enlarged. Chronic retrocardiac airspace disease appears t o represent chronic atelectasis. Moderate arthropathy of the left humeral joint with loose bodies is present. Post CABG changes the chest are noted. IMPRESSION: Chronic findings with no acute process. Chronic left basilar opacity appears to represen t chronic atelectasis. 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
[2018-10-04] MEDS ORDERED: NITROGLYCERIN SL TABS 0.4 MG TAB SUBLINGUAL PRN (13:09)
[2018-10-04] MEDS ORDERED: ALPRAZolam 0.25 MG TAB PO PRN (14:13)
[2018-10-04 14:23] VITALS: BMI 31.5
--- NOTE | 2018-10-04 14:55 | P.HPIM ---
History of Present Illness H&P Date: 10/04/18 This is a 83-year-old female patient of Dr. Kuhn. Patient presented with complaints of increased shortness of breath. Her patient's daughter was also reports that she's had 1 pound weight gain. She reports that she has been only taking one of her Lasix daily due to possibility of running out. Patient also reports that her Lasix was recently changed to Demadex. Patient reports that symptoms started yesterday. Patient normally wears 2 L intermittently of oxygen at home. Patient reports that she's had to require wearing it 24/7 over the past 24 hours. Additional medical history A. fib, CAD, chest pain, heart failure, COPD, GERD, hyperlipidemia, myocardial infarction, osteoarthritis, p neumonia, renal disease, coronary artery bypass graft surgery and anxiety and depression. Chest x-ray completed showing chronic findings with no acute process. Chronic left basilar PCP is represent chronic atelectasis. 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 EKG completed showing atrial fibrillation with heart rate 65. Per records patient is not on anticoagulation due to high risk of bleeding due to falls. Initial troponin 0.038. BNP 2230. At this time patient started on IV Lasix 40 mg every 12 hours. Cardiology services have been consulted. Patient denies chest pain. Patient does complain of shortness breath with exertion. Patient denies nausea vomiting diarrhea. Patient denies any urinary burning or frequency. Review of Systems Please refer to HPI otherwise unremarkable Past Medical History Past Medical History: Atrial Fibrillation, Coronary Artery Disease (CAD), Chest Pain / Angina, Heart Failure, COPD, GERD/Reflux, Hyperlipidemia, Myocardial Infarction ([place]), Osteoarthritis (OA), Pneumonia, Renal Disease Additional Past Medical History / Comment(s): Pt recently admitted to [facility] on 07/21/18 with dyspnea r/t CHF/cardiomyopathy and acute on chronic kidney disease. Other hx: Chronic Afib, neuropathy bilateral feet, gout bilateral feet, falls, occasional low back pain with bilateral sciatica with L side worse, hypothyroid, epistaxis with blood loss anemia. Last Myocardial Infarction Date:: 2012 History of Any Multi-Drug Resistant Organisms: None Reported Past Surgical History: Appendectomy, Back Surgery, Cardiac Ablation, Cholecystectomy, Coronary Bypass/CABG, Heart Catheterization With Stent, Hysterectomy Additional Past Surgical History / Comment(s): LOW, 1993 CABG-4 vessels, nasal cauterization, colonoscopy with benign polypectomy, D&C, bilateral cataract rem ovals, R breast benign bx, lumbar laminectomy. Past Anesthesia/Blood Transfusion Reactions: Previous Problems w/ Anesthesia Additional Past Anesthesia/Blood Transfusion Reaction / Comment(s): Pt received blood 02/07/12 without reaction after epistaxis. Date of Last Stent Placement:: 03/2013 Past Psychological History: Anxiety, Depression Additional Psychological History / Comment(s): Pt resides alone. She uses a walker to ambulate. She drives. She has home oxygen and a nebulizer. Smoking Status: Former smoker Past Alcohol Use History: None Reported Additional Past Alcohol Use History / Comment(s): Pt has a glass of wine each evening. She started smoking in 1956 and quit in 1986. Past Drug Use History: None Reported - Past Family History Mother Additional Family Medical History / Comment(s): Mother was a heavy drinker. She lived to be in her 80's Father Family Medical History: No Reported History Additional Family Medical History / Comment(s): Father lived to be in his 80's Medications and Allergies Home Medications Medication Instructions Recorded Confirmed Type Cyanocobalamin [Vitamin B-12] 500 mcg PO DAILY 10/03/13 10/04/18 History Aspirin [Adult Low Dose Aspirin EC] 81 mg PO BID 01/10/16 10/04/18 History Levothyroxine Sodium [Synthroid] 68.5 mcg PO Q48H 03/16/16 10/04/18 History ALPRAZolam [Xanax] 0.25 mg PO Q6H PRN 07/20/18 10/04/18 History Albuterol Nebulized [Ventolin 2.5 mg INHALATION RT-Q4H PRN 07/20/18 10/04/18 History Nebulized] Allopurinol [Zyloprim] 300 mg PO DAILY 07/20/18 10/04/18 History Cholecalciferol [Vitamin D3 (25 1,000 unit PO DAILY 07/20/18 10/04/18 History Mcg = 1000 Iu)] Escitalopram [Lexapro] 10 mg PO DAILY 07/20/18 10/04/18 History Levothyroxine Sodium [Synthroid] 137 mcg PO Q48H 07/20/18 10/04/18 History Metoprolol Tartrate [Lopressor] 75 mg PO BID 07/20/18 10/04/18 History Nitroglycerin Sl Tabs [Nitrostat] 0.4 mg SUBLINGUAL Q5M PRN 07/20/18 10/04/18 History Furosemide [Lasix] 60 mg PO DAILY 09/14/18 10/04/18 History Montelukast [Singulair] 10 mg PO HS #30 tab 09/18/18 10/04/18 Rx Allergies Allergy/AdvReac Type Severity Reaction Status Date / Time [id number]-[id number] Reductase Allergy Unknown Verified 10/04/18 11:46 Inhibitor Physical Exam Vitals: Vital Signs Temp Pulse Pulse Resp BP BP Pulse Ox 10/04/18 14:11 97.7 F 76 18 113/55 100 10/04/18 13:48 97.6 F 70 18 98 10/04/18 13:36 67 20 116/62 92 L 10/04/18 11:10 97.9 F 65 24 114/65 97 Intake and Output 10/03/18 10/04/18 10/04/18 22:59 06:59 14:59 Output Total 500 Balance -500 Output: Urine 500 Other: # Voids 1 Weight 82.2 kg Head normocephalic Neck supple Lungs diminished bilaterally Heart irregular rate Abdomen is soft nontender nondistended positive bowel sounds no hepatosplenomegaly Extremities no edema Neuro alert and orientated to 3 Results CBC & Chem 7: 10/04/18 11:50 10/04/18 11:50 Labs: Abnormal Lab Results - Last 24 Hours (Table) 10/04/18 10/04/18 10/04/18 Range/Units 11:50 11:50 11:50 RBC 3.40 L (3.80-5.40) m/uL Hgb 10.8 L (11.4-16.0) gm/dL MCV 104.0 H (80.0-100.0) fL MCHC 30.6 L (31.0-37.0) g/dL RDW 16.7 H (11.5-15.5) % Lymphocytes # 0.8 L (1.0-4.8) k/uL Carbon Dioxide 35 H (22-30) mmol/L BUN 25 H (7-17) mg/dL Magnesium 2.4 H (1.6-2.3) mg/dL Troponin I 0.038 H* (0.000-0.034) ng/mL Total Protein 5.3 L (6.3-8.2) g/dL Albumin 3.1 L (3.5-5.0) g/dL Thrombosis Risk Factor Assmnt - Choose All That Apply Any of the Below Risk Factors Present?: Yes Each Factor Represents 1 point: Obesity (BMI >25) Other Risk Factors: Yes Each Risk Factor Represents 3 Points: Age 75 years or older Thrombosis Risk Factor Assessment Total Risk Factor Score: 4 Thrombosis Risk Factor Assessment Level: Moderate Risk Assessment and Plan Assessment: 1. Increased shortness of breath related to acute on chronic diastolic CHF exacerbation. BNP elevated at 2230. Chest x-ray completed showing chronic findings with no acute process. Chronic left basilar opacity appears to represent chronic atelectasis. 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 Sander nt started on Lasix 40 mg IV every 12 hours. Cardiology services consulted 2. Elevated troponin. Troponin 0.038. Cardiology service is consulted. Serial troponins ordered 3. Chronic diastolic congestive heart failure. Patient does follow with cardiology services. possible change in medication 2 weeks ago from Lasix to Demadex. Pharmacy to clarify medication change 4. Chronic A. fib controlled heart rate. Patient not on anticoagulation due to high risk of bleeding in the past with falls 5. Chronic elevation of right hemidiaphragm. This is a previously seen and evaluated by pulmonary services. 6. History of frequent falls 7. History of coronary artery disease with history of CABG and cardiac stents 8. History of chronic kidney disease stage III 9. Hypothyroidism. Continue Synthroid. TSH level ordered 10. History of COPD 11. History of asthma. Home medications resumed DVT prophylaxis Lovenox. GI prophylaxis Protonix Time with Patient: Greater than 30 (Greater than 60% of the total time spent in counseling and coordination of care. I performed an examination of the patient and discussed their management with the Nurse Practitioner. I have reviewed the Nurse Practitioner's notes and agree with the documented findings and plan of care)
--- NOTE | 2018-10-04 15:23 | P.CRDCN ---
History of Present Illness Consult date: 10/04/18 Requesting physician: Susan Virk Consult reason: congestive heart failure Chief complaint: Shortness of breath and weight gain History of present illness: This is a pleasant 83-year-old female who follows with Dr. Parada in the office. She has a known history of coronary artery disease with prior stent placement, hypertension, hyperlipidemia, chronic persistent atrial fibrillation, she presents to the hospital on this occasion with symptoms of progressively worsening shortness of breath over a 2 day duration. According to the patient, she's been dealing with a cold as an outpatient and was started on some steroids. Yesterday she forgot to take her water pill, became quite short of breath and also noticed a significant weight gain, for this reason she came to the emergency room for further evaluation. Blood pressure 112/56, heart rate in the 70s, 100% on 2 L of oxygen. White blood cell count 7.3, hemoglobin 10.8, platelet count 151. Sodium 140, potassium 4.5, BUN 25 and creatinine 0.9. Troponin 0.038. BNP [id number]. was initiated on IV Lasix in the [facility] room and diuresed well. Still has some mild shortness of breath and mild peripheral edema. Past Medical History Past Medical History: Atrial Fibrillation, Coronary Artery Disease (CAD), Chest Pain / Angina, Heart Failure, COPD, GERD/Reflux, Hyperlipidemia, Myocardial Infarction ([place]), Osteoarthritis ([place]), Pneumonia, Renal Disease Additional Past Medical History / Comment(s): Pt recently admitted to [facility] on 07/21/18 with dyspnea r/t CHF/cardiomyopathy and acute on chronic kidney disease. Other hx: Chronic Afib, neuropathy bilateral feet, gout bilateral feet, falls, occasional low back pain with bilateral sciatica with L side worse, hypothyroid, epistaxis with blood loss anemia. Last Myocardial Infarction Date:: 2012 History of Any Multi-Drug Resistant Organisms: None Reported Past Surgical History: Appendectomy, Back Surgery, Cardiac Ablation, Cholecystectomy, Coronary Bypass/CABG, Heart Catheterization With Stent, Hysterectomy Additional Past Surgical History / Comment(s): LOW, 1993 CABG-4 vessels, nasal cauterization, colonoscopy with benign polypectomy, D&C, bilateral cataract removals, R breast benign bx, lumbar laminectomy. Past Anesthesia/Blood Transfusion Reactions: Previous Problems w/ Anesthesia Additional Past Anesthesia/Blood Transfusion Reaction / Comment(s): Pt received blood 02/07/12 without reaction after epistaxis. Date of Last Stent Placement:: 03/2013 Past Psychological History: Anxiety, Depression Additional Psychological History / Comment(s): Pt resides alone. She uses a walker to ambulate. She drives. She has home oxygen and a nebulizer. Smoking Status: Former smoker Past Alcohol Use History: None Reported Additional Past Alcohol Use History / Comment(s): Pt has a glass of wine each evening. She started smoking in 1956 and quit in 1986. Past Drug Use History: None Reported - Past Family History Mother Additional Family Medical History / Comment(s): Mother was a heavy drinker. She lived to be in her 80's Father Family Medical History: No Reported History Additional Family Medical History / Comment(s): Father lived to be in his 80's Medications and Allergies Home Medications Medication Instructions Recorded Confirmed Type Cyanocobalamin [Vitamin B-12] 500 mcg PO DAILY 10/03/13 10/04/18 History Aspirin [Adult Low Dose Aspirin EC] 81 mg PO BID 01/10/16 10/04/18 History Levothyroxine Sodium [Synthroid] 68.5 mcg PO Q48H 03/16/16 10/04/18 History ALPRAZolam [Xanax] 0.25 mg PO Q6H PRN 07/20/18 10/04/18 History Albuterol Nebulized [Ventolin 2.5 mg INHALATION RT-Q4H PRN 07/20/18 10/04/18 History Nebulized] Allopurinol [Zyloprim] 300 mg PO DAILY 07/20/18 10/04/18 History Cholecalciferol [Vitamin D3 (25 1,000 unit PO DAILY 07/20/18 10/04/18 History Mcg = 1000 Iu)] Escitalopram [Lexapro] 10 mg PO DAILY 07/20/18 10/04/18 History Levothyroxine Sodium [Synthroid] 137 mcg PO Q48H 07/20/18 10/04/18 History Metoprolol Tartrate [Lopressor] 75 mg PO BID 07/20/18 10/04/18 History Nitroglycerin Sl Tabs [Nitrostat] 0.4 mg SUBLINGUAL Q5M PRN 07/20/18 10/04/18 History Furosemide [Lasix] 60 mg PO DAILY 09/14/18 10/04/18 History Montelukast [Singulair] 10 mg PO HS #30 tab 09/18/18 10/04/18 Rx Allergies Allergy/AdvReac Type Severity Reaction Status Date / Time [id number] Reductase Allergy Unknown Verified 10/04/18 11:46 Inhibitor Physical Exam Vitals: Vital Signs Temp Pulse Pulse Resp BP BP Pulse Ox 10/04/18 14:11 97.7 F 76 18 113/55 100 10/04/18 13:48 97.6 F 70 18 98 10/04/18 13:36 67 20 116/62 92 L 10/04/18 11:10 97.9 F 65 24 114/65 97 Intake and Output 10/03/18 10/04/18 10/04/18 22:59 06:59 14:59 Output Total 500 Balance -500 Output: Urine 500 Other: # Voids 1 Weight 82.2 kg PHYSICAL EXAMINATION: GENERAL: 83-year-old female in no acute distress at the time of my examination HEENT: Head is atraumatic, normocephalic. Pupils equal, round. Sclera anicteric. Conjunctiva are clear. Mucous membranes of the mouth are moist. Neck is supple. There is no elevated jugular venous pressure. No carotid bruit is heard. HEART EXAMINATION: S1 and S2 irregularly irregular with a systolic murmur heard CHEST EXAMINATION:'s reveal diminished air entry to the bases. ABDOMEN: Soft, nontender. Bowel sounds are heard. No organomegaly noted. EXTREMITIES: 2+ peripheral pulses with 1+ evidence of peripheral edema and no calf tenderness noted]. NEUROLOGIC [ptient is awake, alert and or3 . Results 10/04/18 11:50 10/04/18 11:50 Cardiac Enzymes 10/04/18 10/04/18 Range/Units 11:50 11:50 AST 22 (14-36) U/L Troponin I 0.038 H* (0.000-0.034) ng/mL Coagulation 10/04/18 Range/Units 11:50 PT 9.5 (9.0-12.0) sec APTT 22.3 (22.0-30.0) sec CBC 10/04/18 Range/Units 11:50 WBC 7.3 (3.8-10.6) k/uL RBC 3.40 L (3.80-5.40) m/uL Hgb 10.8 L (11.4-16.0) gm/dL Hct 35.3 (34.0-46.0) % Plt Count 151 (150-450) k/uL Comprehensive Metabolic Panel 10/04/18 Range/Units 11:50 Sodium 140 (137-145) mmol/L Potassium 4.5 (3.5-5.1) mmol/L Chloride 105 (98-107) mmol/L Carbon Dioxide 35 H (22-30) mmol/L BUN 25 H (7-17) mg/dL Creatinine 0.92 (0.52-1.04) mg/dL Glucose 82 (74-99) mg/dL Calcium 9.0 (8.4-10.2) mg/dL AST 22 (14-36) U/L ALT 23 (9-52) U/L Alkaline Phosphatase 80 (38-126) U/L Total Protein 5.3 L (6.3-8.2) g/dL Albumin 3.1 L (3.5-5.0) g/dL Current Medications Generic Name Dose Route Start Last Admin Trade Name Freq PRN Reason Stop Dose Admin Albuterol Sulfate 2.5 mg 10/04/18 14:13 Ventolin Nebulized INHALATION RT-Q4H PRN Cough Allopurinol 300 mg 10/05/18 09:00 Zyloprim PO DAILY MAIKOL Alprazolam 0.25 mg 10/04/18 14:13 Xanax PO Q6H PRN Anxiety Aspirin 325 mg 10/05/18 09:00 Aspirin PO DAILY [facility] Cholecalciferol 1,000 unit 10/05/18 09:00 Vitamin D3 (25 Mcg = 1000 Iu) PO DAILY [facility] Cyanocobalamin 500 mcg 10/05/18 09:00 Vitamin B-12 PO DAILY [facility] Escitalopram Oxalate 10 mg 10/05/18 09:00 Lexapro PO DAILY MAIKOL Furosemide 40 mg 10/04/18 21:00 Lasix IV Q12HR MAIKOL Levothyroxine Sodium 68.5 mcg 10/06/18 06:30 Synthroid PO Q48H MAIKOL Levothyroxine Sodium 137 mcg 10/05/18 06:30 Synthroid PO Q48H [facility] Metoprolol Tartrate 75 mg 10/04/18 21:00 Lopressor PO BID MAIKOL Montelukast Sodium 10 mg 10/04/18 21:00 Singulair PO HS MAIKOL Nitroglycerin 1 inch 10/04/18 18:00 Nitro-Bid Oint TOPICAL Q6HR MAIKOL Nitroglycerin 0.4 mg 10/04/18 13:09 Nitrostat SUBLINGUAL Q5M PRN Chest Pain Intake and Output 10/03/18 10/04/18 10/04/18 22:59 06:59 14:59 Output Total 500 Balance -500 Output: Urine 500 Other: # Voids 1 Weight 82.2 kg Patient Weight 10/05/18 06:59 Weight 82.2 kg 10/04/18 11:50 10/04/18 11:50 EKG Interpretations (text) EKG shows atrial fibrillation with a controlled ventricular response. Assessment and Plan Plan: Assessment and plan #1 diastolic congestive heart failure acute on chronic. Patient had an echo performed in July of this year which revealed a normal left ventricular syst olic function. #2 chronic persistent atrial fibrillation #3 coronary artery disease with prior bypass surgery and PCI #4 hypertension #5 hyperlipidemia #6 GERD #7 hypothyroidism #8 COPD Plan We will continue current dose of IV Lasix, continue to monitor intake and output along with daily weights and daily lytes BUN and creatinine. DNP note has been reviewed, I agree with a documented findings and plan of care. Patient was seen and examined.
[2018-10-04] MEDS: NITROGLYCERIN OINT 1 INCH/GM PACKET TOPICAL SCH (17:42)
[2018-10-04 20:24] LABS: T4, Free (Free Thyroxine) 0.93 ng/dL (0.78-2.19)
[2018-10-04] MEDS: ALBUTEROL NEBULIZED 2.5 MG/3 ML INHALATION PRN (20:43)
[2018-10-04] MEDS: MONTELUKAST 10 MG TAB PO SCH (20:56)
[2018-10-04] MEDS: METOPROLOL TARTRATE 25 MG TAB PO SCH (20:56)
[2018-10-04] MEDS ORDERED: FUROSEMIDE 10 MG/ML 4 ML VIAL IV SCH (21:00)
[2018-10-04] MEDS: ACETAMINOPHEN TAB 325 MG TAB PO PRN (21:48)
[2018-10-05] MEDS: NITROGLYCERIN OINT 1 INCH/GM PACKET TOPICAL SCH ×2 (00:23→06:17)
[2018-10-05] MEDS: PANTOPRAZOLE 40 MG TABLET PO SCH (06:20)
[2018-10-05] MEDS ORDERED: LEVOTHYROXINE 137 MCG TAB PO SCH (06:30)
[2018-10-05 06:39] LABS: Anisocytosis Slight; Basophils % (A) 0 %; Eosinophils # (A) 0.1 k/uL (0-0.7); Eosinophils % (A) 1 %; HGB 10.1 gm/dL (11.4-16.0); Hypochromasia Marked; Lymphocytes # (A) 0.9 k/uL (1.0-4.8); Lymphocytes % (A) 17 %; MCH 31.6 pg (25.0-35.0); MCHC 29.8 g/dL (31.0-37.0); MCV 105.8 fL (80.0-100.0); Macrocytosis Marked; Monocytes # (A) 0.2 k/uL (0-1.0); Monocytes % (A) 4 %; Neutrophils # (A) 4.3 k/uL (1.3-7.7); Neutrophils % (A) 77 %; Platelet Count 136 k/uL (150-450); RBC 3.22 m/uL (3.80-5.40); RDW 16.5 % (11.5-15.5); WBC 5.7 k/uL (3.8-10.6)
[2018-10-05 06:52] LABS: Potassium 4.1 mmol/L (3.5-5.1)
[2018-10-05 06:53] LABS: Albumin 2.8 g/dL (3.5-5.0); Calcium 8.7 mg/dL (8.4-10.2); Total Bilirubin 0.7 mg/dL (0.2-1.3); Total Protein 4.9 g/dL (6.3-8.2)
[2018-10-05] MEDS: ALBUTEROL NEBULIZED 2.5 MG/3 ML INHALATION PRN ×4 (07:54→19:18)
[2018-10-05] MEDS ORDERED: ASPIRIN 325 MG TAB PO SCH (09:00)
[2018-10-05] MEDS: ALLOPURINOL 300 MG TAB PO SCH (09:28)
[2018-10-05] MEDS: CYANOCOBALAMIN 500 MCG TAB PO SCH (09:29)
[2018-10-05] MEDS: FUROSEMIDE 40 MG TAB PO SCH (09:29)
[2018-10-05] MEDS: ESCITALOPRAM 10 MG TAB PO SCH (09:29)
[2018-10-05] MEDS: METOPROLOL TARTRATE 25 MG TAB PO SCH ×2 (09:29→19:35)
[2018-10-05] MEDS: CHOLECALCIFEROL 1,000 UNIT TAB PO SCH (09:29)
[2018-10-05] MEDS: ENOXAPARIN 40 MG/0.4 ML SYRINGE SQ SCH (09:32)
[2018-10-05] MEDS: ASPIRIN 81 MG PO SCH (09:37)
--- NOTE | 2018-10-05 10:56 | P.PN ---
Subjective Progress Note Date: 10/05/18 This is a 83-year-old female patient of Dr. Kuhn. Patient presented with complaints of increased shortness of breath. Her patient's daughter was also reports that she's had 1 pound weight gain. She reports that she has been only taking one of her Lasix daily due to possibility of running out. Patient also reports that her Lasix was recently changed to Demadex. Patient reports that symptoms started yesterday. Patient normally wears 2 L intermittently of oxygen at home. Patient reports that she's had to require wearing it 24/7 over the past 24 hours. Additional medical history A. fib, CAD, chest pain, heart failure, COPD, GERD, hyperlipidemia, myocardial infarction, osteoarthritis, pneumonia, renal disease, coronary artery bypass graft surgery and anxiety and depression. Chest x-ray completed showing chronic findings with no acute process. Chronic left basilar PCP is represent chronic atelectasis. 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 EKG completed showing atrial fibrillation with heart rate 65. Per records patient is not on anticoagulation due to high risk of bleeding due to falls. Initial troponin 0.038. BNP 2230. At this time patient started on IV Lasix 40 mg every 12 hours. Cardiology services have been consulted. Patient denies chest pain. Patient does complain of shortness breath with exertion. Patient denies nausea vomiting diarrhea. Patient denies any urinary burning or frequency. On 10/05/2018 patient is alert and oriented 3. Patient reports she does feel improved. Patient has been switched to oral Lasix per cardiology. Attempting patient denies chest pain. Shortness of breath is improving. Patient denies nausea vomiting or diarrhea. Patient denies any urinary burning or frequency. Objective - Vital Signs Vital signs: Vital Signs Temp 97.7 F 10/04/18 14:11 Pulse 66 10/05/18 08:05 Resp 17 10/05/18 04:00 BP 92/48 10/05/18 04:00 Pulse Ox 98 10/05/18 04:00 Intake & Output 10/04/18 10/05/18 10/05/18 18:59 06:59 18:59 Intake Total 240 Output Total 850 450 Balance -850 -450 240 Weight 82.2 kg 79.3 kg Intake: Oral 240 Output: Urine 850 450 Other: Voiding Method Toilet # Voids 1 1 - Exam Head normocephalic Neck supple Lungs diminished bilaterally Heart regular rate and rhythm S1-S2, no rub or gallop Abdomen is soft nontender nondistended positive bowel sounds no hepatosplenomegaly Extremities no edema Neuro alert and orientated to 3 - Labs CBC & Chem 7: 10/05/18 05:49 10/05/18 05:49 Labs: Abnormal Lab Results - Last 24 Hours (Table) 10/04/18 10/04/18 10/04/18 Range/Units 11:50 11:50 11:50 RBC 3.40 L (3.80-5.40) m/uL Hgb 10.8 L (11.4-16.0) gm/dL MCV 104.0 H (80.0-100.0) fL MCHC 30.6 L (31.0-37.0) g/dL RDW 16.7 H (11.5-15.5) % Plt Count (150-450) k/uL Lymphocytes # 0.8 L (1.0-4.8) k/uL Macrocytosis Carbon Dioxide 35 H (22-30) mmol/L BUN 25 H (7-17) mg/dL Creatinine (0.52-1.04) mg/dL Magnesium 2.4 H (1.6-2.3) mg/dL Troponin I 0.038 H* (0.000-0.034) ng/mL Total Protein 5.3 L (6.3-8.2) g/dL Albumin 3.1 L (3.5-5.0) g/dL TSH (0.465-4.680) mIU/L 10/04/18 10/04/18 10/05/18 Range/Units 18:25 18:25 05:49 RBC (3.80-5.40) m/uL Hgb (11.4-16.0) gm/dL MCV (80.0-100.0) fL MCHC (31.0-37.0) g/dL RDW (11.5-15.5) % Plt Count (150-450) k/uL Lymphocytes # (1.0-4.8) k/uL Macrocytosis Carbon Dioxide 32 H (22-30) mmol/L BUN 32 H (7-17) mg/dL Creatinine 1.16 H (0.52-1.04) mg/dL Magnesium (1.6-2.3) mg/dL Troponin I 0.037 H* (0.000-0.034) ng/mL Total Protein 4.9 L (6.3-8.2) g/dL Albumin 2.8 L (3.5-5.0) g/dL TSH 11.900 H (0.465-4.680) mIU/L 10/05/18 Range/Units 05:49 RBC 3.22 L (3.80-5.40) m/uL Hgb 10.1 L (11.4-16.0) gm/dL MCV 105.8 H (80.0-100.0) fL MCHC 29.8 L (31.0-37.0) g/dL RDW 16.5 H (11.5-15.5) % Plt Count 136 L (150-450) k/uL Lymphocytes # 0.9 L (1.0-4.8) k/uL Macrocytosis Marked A Carbon Dioxide (22-30) mmol/L BUN (7-17) mg/dL Creatinine (0.52-1.04) mg/dL Magnesium (1.6-2.3) mg/dL Troponin I (0.000-0.034) ng/mL Total Protein (6.3-8.2) g/dL Albumin (3.5-5.0) g/dL TSH (0.465-4.680) mIU/L Assessment and Plan Assessment: 1. Increased shortness of breath related to acute on chronic diastolic CHF exacerbation. BNP elevated at 2230. Chest x-ray completed showing chronic findings with no acute process. Chronic left basilar opacity appears to represent chronic atelectasis. 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 Patient started on Lasix 40 mg IV every 12 hours. Per cardiology recent 2-D echo performed revealing a normal left ventricular systolic function. Patient has been switched to Lasix 40 mg daily 2. Elevated troponin. Troponin 0.038. Repeat troponin 0.032. Cardiology services are following 3. Chronic diastolic congestive heart failure. Patient does follow with [facility] rdiology services. possible change in medication 2 weeks ago from Lasix to Demadex. Pharmacy to clarify medication change 4. Chronic A. fib controlled heart rate. Patient not on anticoagulation due to high risk of bleeding in the past with falls 5. Chronic elevation of right hemidiaphragm. This is a previously seen and evaluated by pulmonary services. 6. History of frequent falls 7. History of coronary artery disease with history of CABG and cardiac stents 8. History of chronic kidney disease stage III. Creatinine 1.16 and bun 32. We'll continue to monitor. Patient has been switched to oral Lasix 9. Hypothyroidism. Continue Synthroid. TSH level ordered 10. History of COPD 11. History of asthma. Home medications resumed DVT prophylaxis Lovenox. GI prophylaxis Protonix I performed an examination of the patient and discussed their management with the Nurse Practitioner. I have reviewed the Nurse Practitioner's notes and agree with the documented findings and plan of care
--- NOTE | 2018-10-05 11:03 | PN ---
PROGRESS NOTE Mrs. Harman is an 83-year-old female who presented yesterday with symptoms of progressive dyspnea. She missed her diuretics. She is followed by Dr. Parada on a regular basis, has a history of coronary artery disease, status post percutaneous revascularization and chronic persistent atrial fibrillation. She is feeling better today. Her breathing is better. She denies any chest pain. She denies any dizziness or palpitation. She denies any nausea. She is back to her baseline. She has a known history of preserved systolic function. She continues to be on Protonix 40 mg daily, nitroglycerin paste, metoprolol tartrate 75 mg twice a day, levothyroxine, furosemide 40 mg IV q.12 hours, aspirin once a day, and albuterol. PHYSICAL EXAMINATION: Blood pressure running in the low 100s with the heart rate in the 60s. LUNGS: Clear. HEART: Irregular, irregular. S1, S2. No S3. No rub. ABDOMEN: Soft, nontender. EXTREMITIES: With 1+ edema on the left side. She recently had a trauma and a fall on that side with with ecchymosis. LAB DATA: Lab data revealed BUN and creatinine 32 and 1.16, potassium 4.1. Her cholesterol is 128, LDL of 48, hemoglobin of 10.1. IMPRESSION: 1. Symptoms of congestive heart failure with preserved systolic function improved. 2. Status post coronary artery bypass grafting and percutaneous revascularization, stable. 3. Chronic persistent atrial fibrillation. 4. Hypertension. 5. Hyperlipidemia. 6. History of hypothyroidism. RECOMMENDATION: From the cardiac standpoint, I will switch her back to her oral diuretics, increase her level of activity. If she remains stable, I would expect she should be able to be discharged home soon. MMODL / IJN: [id number] /
[2018-10-05 12:17] VITALS: TEMP 97.9
[2018-10-05] MEDS: MONTELUKAST 10 MG TAB PO SCH (19:34)
[2018-10-06] MEDS ORDERED: LEVOTHYROXINE 137 MCG TAB PO SCH (06:30)
[2018-10-06] MEDS ORDERED: LEVOTHYROXINE 125 MCG TAB PO SCH (06:30)
[2018-10-06] MEDS: PANTOPRAZOLE 40 MG TABLET PO SCH (06:47)
[2018-10-06 07:38] LABS: Anisocytosis Slight; Basophils % (A) 0 %; Eosinophils # (A) 0.1 k/uL (0-0.7); Eosinophils % (A) 1 %; HCT 34.7 % (34.0-46.0); HGB 10.9 gm/dL (11.4-16.0); Hypochromasia Slight; Lymphocytes # (A) 0.9 k/uL (1.0-4.8); Lymphocytes % (A) 14 %; MCH 32.6 pg (25.0-35.0); MCHC 31.4 g/dL (31.0-37.0); MCV 103.7 fL (80.0-100.0); Macrocytosis Moderate; Mean Platelet Volume 7.5; Monocytes # (A) 0.3 k/uL (0-1.0); Monocytes % (A) 4 %; Neutrophils % (A) 79 %; Platelet Count 147 k/uL (150-450); RBC 3.34 m/uL (3.80-5.40); RDW 16.8 % (11.5-15.5); WBC 6.3 k/uL (3.8-10.6)
[2018-10-06 08:08] LABS: Albumin 3.1 g/dL (3.5-5.0); Potassium 4.2 mmol/L (3.5-5.1); Total Bilirubin 0.6 mg/dL (0.2-1.3); Total Protein 5.4 g/dL (6.3-8.2)
[2018-10-06] MEDS: ASPIRIN 81 MG PO SCH (08:37)
[2018-10-06] MEDS: CYANOCOBALAMIN 500 MCG TAB PO SCH (08:37)
[2018-10-06] MEDS: ALLOPURINOL 300 MG TAB PO SCH (08:37)
[2018-10-06] MEDS: CHOLECALCIFEROL 1,000 UNIT TAB PO SCH (08:37)
[2018-10-06] MEDS: ESCITALOPRAM 10 MG TAB PO SCH (08:38)
[2018-10-06] MEDS: METOPROLOL TARTRATE 25 MG TAB PO SCH (08:38)
[2018-10-06] MEDS: FUROSEMIDE 40 MG TAB PO SCH (08:38)
[2018-10-06] MEDS: ENOXAPARIN 40 MG/0.4 ML SYRINGE SQ SCH (08:40)
--- NOTE | 2018-10-06 10:36 | PN ---
PROGRESS NOTE Mrs. Harman is an 83-year-old female with a history of coronary artery disease, status post PCI, history of chronic persistent atrial fibrillation who presented with worsening dyspnea. She is feeling much better. Today her breathing is back to baseline. She denies any dizziness or palpitation. She denies any nausea or vomiting. She denies any cough. She has mild edema on the left side which is the site where she fell recently, but no edema on the right side. She continues to be on aspirin 81 mg daily, furosemide 40 mg daily, metoprolol tartrate 75 mg twice a day. PHYSICAL EXAMINATION: Blood pressure 113/60 with the heart rate in the 70s. LUNGS: Clear. HEART: Irregular, irregular. S1, S2. No S3. No rub appreciated. ABDOMEN: Soft, nontender. Positive bowel sounds. No organomegaly. EXTREMITIES: Ecchymosis on the left side with 1+ edema. IMPRESSION: 1. Symptoms of congestive heart failure with preserved systolic function, stable. 2. Status post coronary artery bypass grafting and PCI. 3. Chronic persistent atrial fibrillation. 4. Hypertension. 5. Hyperlipidemia. RECOMMENDATION: From the cardiac standpoint, she is stable. We will continue present therapy. I would expect she should be able to be discharged home today and follow as an outpatient. MMODL / IJN: [id number] /
[2018-10-06 13:35] VITALS: RESP 18
[2018-10-06] MEDS: ACETAMINOPHEN TAB 325 MG TAB PO PRN (14:32)
--- NOTE | 2018-10-06 15:45 | P.DS ---
Providers Date of admission: 10/04/18 13:09 Expected date of discharge: 10/06/18 Attending physician: Susan Virk Consults: 10/04/18 13:09 Consult Physician Urgent Consulting Provider: [facility] Consult Reason/Comments: Elevated troponin, dyspnea, pedal edema Do you want consulting provider notified?: Yes Primary care physician: Tiera Kuhn Hospital Course: Discharge diagnosis 1. Increased shortness of breath related to acute on chronic diastolic CHF exacerbation. BNP elevated at 2230. Chest x-ray completed showing chronic find ings with no acute process. Chronic left basilar opacity appears to represent chronic atelectasis. 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 Patient started on Lasix 40 mg IV every 12 hours. Per cardiology recent 2-D echo performed revealing a normal left ventricular systolic function. Patient has been switched to Lasix 40 mg daily 2. Elevated troponin. Troponin 0.038. Repeat troponin 0.032. Cardiology services are following 3. Chronic diastolic congestive heart failure. Patient does follow with cardiology services. possible change in medication 2 weeks ago from Lasix to Demadex. Demadex will be DC'd and patient will be restarted on Lasix 40 mg daily 4. Chronic A. fib controlled heart rate. Patient not on anticoagulation due to high risk of bleeding in the past with falls. This was discussed with cardiology services. Risk versus benefit of anticoagulation was discussed with patient per Dr. Virk. Patient not on anticoagulation due to high risk of bleeding 5. Chronic elevation of right hemidiaphragm. This is a previously seen and evaluated by pulmonary services. 6. History of frequent falls 7. History of coronary artery disease with history of CABG and cardiac stents 8. History of chronic kidney disease stage III. Creatinine 1.16 and bun 32. We'll continue to monitor. Patient has been switched to oral Lasix 9. Hypothyroidism. Continue Synthroid. TSH level XI.90. Synthroid has been changed to 125 mics by mouth daily 10. History of COPD 11. History of asthma. Home medications resumed Hospital course This is a 83-year-old female patient of Dr. Kuhn. Patient presented with complaints of increased shortness of breath. Her patient's daughter was also reports that she's had 1 pound weight gain. She reports that she has been only taking one of her Lasix daily due to possibility of running out. Patient also reports that her Lasix was recently changed to Demadex. Patient reports that symptoms started yesterday. Patient normally wears 2 L intermittently of oxygen at home. Patient reports that she's had to require wearing it 24/7 over the past 24 hours. Additional medical history A. fib, CAD, chest pain, heart failure, COPD, GERD, hyperlipidemia, myocardial infarction, osteoarthritis, pneumonia, renal disease, coronary artery bypass graft surgery and anxiety and depression. Chest x-ray completed showing chronic findings with no acute process. Chronic left basilar PCP is represent chronic atelectasis. 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 EKG completed showing atrial fibrillation with heart rate 65. Per records patient is not on anticoagulation due to high risk of bleeding due to falls. Initial troponin 0.038. BNP 2230. At this time patient started on IV Lasix 40 mg every 12 hours. Cardiology services have been consulted. Patient denies chest pain. Patient does complain of shortness breath with exertion. Patient denies nausea vomiting diarrhea. Patient denies any urinary burning or frequency. On 10/05/2018 patient is alert and oriented 3. Patient reports she does feel improved. Patient has been switched to oral Lasix per cardiology. Attempting patient denies chest pain. Shortness of breath is improving. Patient denies nausea vomiting or diarrhea. Patient denies any urinary burning or frequency. On 10/06/2018 patient is alert and oriented 3. Patient feels extremely improved. Patient has been on oral Lasix. Patient has been cleared for discharge from cardiology standpoint. Patient again refused subacute rehab pain to be DC'd home with home health care per case management. At this time patient denies chest pain or shortness breath. Patient denies nausea vomiting or diarrhea. Patient denies any urinary burning or frequency. I performed an examination of the patient and discussed their management with the Nurse Practitioner. I have reviewed the Nurse Practitioner's notes and agree with the documented findings and plan of care Patient Condition at Discharge: Stable Plan - Discharge Summary Discharge Rx Participant: No New Discharge Prescriptions: New Furosemide [Lasix] 40 mg PO DAILY 30 Days #30 tab Levothyroxine Sodium [Synthroid] 125 mcg PO DAILY@0630 30 Days #30 tab Continue Cyanocobalamin [Vitamin B-12] 500 mcg PO DAILY Aspirin [Adult Low Dose Aspirin EC] 81 mg PO BID Albuterol Nebulized [Ventolin Nebulized] 2.5 mg INHALATION RT-Q4H PRN PRN Reason: Cough Allopurinol [Zyloprim] 300 mg PO DAILY ALPRAZolam [Xanax] 0.25 mg PO Q6H PRN PRN Reason: Anxiety Cholecalciferol [Vitamin D3 (25 Mcg = 1000 Iu)] 1,000 unit PO DAILY Escitalopram [Lexapro] 10 mg PO DAILY Metoprolol Tartrate [Lopressor] 75 mg PO BID Nitroglycerin Sl Tabs [Nitrostat] 0.4 mg SUBLINGUAL Q5M PRN PRN Reason: Chest Pain Montelukast [Singulair] 10 mg PO HS #30 tab Discontinued Levothyroxine Sodium [Synthroid] 68.5 mcg PO Q48H Levothyroxine Sodium [Synthroid] 137 mcg PO Q48H Torsemide [Demadex] 40 mg PO DAILY Discharge Medication List Cyanocobalamin [Vitamin B-12] 500 mcg PO DAILY 10/03/13 [History] Aspirin [Adult Low Dose Aspirin EC] 81 mg PO BID 01/10/16 [History] ALPRAZolam [Xanax] 0.25 mg PO Q6H PRN 07/20/18 [History] Albuterol Nebulized [Ventolin Nebulized] 2.5 mg INHALATION RT-Q4H PRN 07/20/18 [History] Allopurinol [Zyloprim] 300 mg PO DAILY 07/20/18 [History] Cholecalciferol [Vitamin D3 (25 Mcg = 1000 Iu)] 1,000 unit PO DAILY 07/20/18 [History] Escitalopram [Lexapro] 10 mg PO DAILY 07/20/18 [History] Metoprolol Tartrate [Lopressor] 75 mg PO BID 07/20/18 [History] Nitroglycerin Sl Tabs [Nitrostat] 0.4 mg SUBLINGUAL Q5M PRN 07/20/18 [History] Montelukast [Singulair] 10 mg PO HS #30 tab 09/18/18 [Rx] Furosemide [Lasix] 40 mg PO DAILY 30 Days #30 tab 10/06/18 [Rx] Levothyroxine Sodium [Synthroid] 125 mcg PO DAILY@0630 30 Days #30 tab 10/06/18 [Rx] Follow up Appointment(s)/Referral(s): Kian Calle MD [STAFF PHYSICIAN] - 1 Week Tiera Kuhn MD [Primary Care Provider] - 10/11/18 10:30 am (Tuesday with [facility] DI[facility]) [facility], [NON-STAFF] - 1 Week Ambulatory/Diagnostic Orders: Comprehensive Metabolic Panel [LAB.AMB] Time Frame: 2 Days, Location: None Selected Activity/Diet/Wound Care/Special Instructions: Activity as tolerated Diet heart healthy Discharge Disposition: HOME SELF-CARE
[2018-10-06 16:42] VITALS: BP 116/69; PULSE 73
== END 2018-10-06 17:04 | disposition home health service (06) | DRG 291 ==
LOC: EC 11:06 → 3SCARD 13:09
PROVIDERS: ADMIT Internal Medicine; ATTEND Internal Medicine
DX: I13.0 Hypertensive heart and chronic kidney disease with heart failure and stage 1 through stage 4 chronic kidney disease, or unspecified chronic kidney disease (principal); I50.33 Acute on chronic diastolic (congestive) heart failure; J98.11 Atelectasis; I48.1 Persistent atrial fibrillation; G62.9 Polyneuropathy, unspecified; I42.9 Cardiomyopathy, unspecified; J44.9 Chronic obstructive pulmonary disease, unspecified; J98.6 Disorders of diaphragm; N18.3 Chronic kidney disease, stage 3 (moderate); D50.0 Iron deficiency anemia secondary to blood loss (chronic); I25.10 Atherosclerotic heart disease of native coronary artery without angina pectoris; K21.9 Gastro-esophageal reflux disease without esophagitis; E78.5 Hyperlipidemia, unspecified; T50.1X5A Adverse effect of loop [high-ceiling] diuretics, initial encounter; R77.8 Other specified abnormalities of plasma proteins; R29.6 Repeated falls; I25.2 Old myocardial infarction; M54.42 Lumbago with sciatica, left side; M19.90 Unspecified osteoarthritis, unspecified site; F32.9 Major depressive disorder, single episode, unspecified; F41.9 Anxiety disorder, unspecified; M10.9 Gout, unspecified; M54.41 Lumbago with sciatica, right side; E03.9 Hypothyroidism, unspecified; Z99.81 Dependence on supplemental oxygen; Z79.82 Long term (current) use of aspirin; Z79.890 Hormone replacement therapy; Z79.899 Other long term (current) drug therapy; Z87.891 Personal history of nicotine dependence; Z87.01 Personal history of pneumonia (recurrent); Z91.81 History of falling; Z90.49 Acquired absence of other specified parts of digestive tract; Z95.1 Presence of aortocoronary bypass graft; Z95.5 Presence of coronary angioplasty implant and graft; Z90.710 Acquired absence of both cervix and uterus; Z86.010 Personal history of colon polyps; Z98.42 Cataract extraction status, left eye; Z98.41 Cataract extraction status, right eye; Z88.8 Allergy status to other drugs, medicaments and biological substances; Z81.1 Family history of alcohol abuse and dependence
CPT/HCPCS: 36415; 71046; 80053; 80061; 83735; 83880; 84439; 84443; 84484; 85025; 85610; 85730; 87040; 93005; 94640; 94760; 94762; 96374; 99285

== ENCOUNTER 2018-10-22 09:40 | Inpatient (IN) | payer MEDICARE, BC ==
[2018-10-22] MEDS ORDERED: SODIUM CHLORIDE 0.9% 1,000 ML IV STA (09:59)
[2018-10-22] MEDS ORDERED: IPRATROPIUM-ALBUTEROL 3 ML NEB INHALATION STA (09:59)
--- NOTE | 2018-10-22 10:15 | ED ---
Dizziness HPI - General Chief Complaint: Dizziness Stated Complaint: SOB Time Seen by Provider: 10/22/18 09:50 Source: patient, EMS Mode of arrival: EMS Limitations: no limitations - History of Present Illness Initial Comments: This is an 83-year-old female the ER for evaluation she presents today for evasive shortness of breath. Patient has significant shortness of breath while she was getting her 2 teeth brushed today, she took her oxygen off became very short of breath and symptoms of been progressing over a few days. Denies chest pain, she states she is not been taking all medications at home as prescribed MD Complaint: dizziness, lightheadedness -: days(s) Timing: waxing/waning, now resolved Description: sense of movement History of Same: No History of Trauma: No Severity: mild Improves With: nothing Worsens With: nothing Associated Symptoms: denies other symptoms, fever/chills, weakness - Related Data Home Medications Medication Instructions Recorded Confirmed Cyanocobalamin [Vitamin B-12] 500 mcg PO DAILY 10/03/13 10/22/18 Aspirin [Adult Low Dose Aspirin EC] 81 mg PO BID 01/10/16 10/22/18 ALPRAZolam [Xanax] 0.25 mg PO Q6H PRN 07/20/18 10/22/18 Albuterol Nebulized [Ventolin 2.5 mg INHALATION RT-Q4H PRN 07/20/18 10/22/18 Nebulized] Allopurinol [Zyloprim] 300 mg PO DAILY 07/20/18 10/22/18 Cholecalciferol [Vitamin D3 (25 1,000 unit PO DAILY 07/20/18 10/22/18 Mcg = 1000 Iu)] Escitalopram [Lexapro] 10 mg PO DAILY 07/20/18 10/22/18 Metoprolol Tartrate [Lopressor] 75 mg PO BID 07/20/18 10/22/18 Nitroglycerin Sl Tabs [Nitrostat] 0.4 mg SUBLINGUAL Q5M PRN 07/20/18 10/22/18 Torsemide [Demadex] 10 mg PO MOWEFR 10/22/18 10/22/18 Previous Rx's Medication Instructions Recorded Montelukast [Singulair] 10 mg PO HS #30 tab 09/18/18 Furosemide [Lasix] 40 mg PO DAILY 30 Days #30 tab 10/06/18 Levothyroxine Sodium [Synthroid] 125 mcg PO DAILY@0630 30 Days #30 10/06/18 tab Allergies Allergy/AdvReac Type Severity Reaction Status Date / Time Aihqais-Laj-Oee Reductase Allergy Unknown Verified 10/22/18 10:06 Inhibitor Review of Systems ROS Statement: Those systems with pertinent positive or pertinent negative responses have been documented in the HPI. ROS Other: All systems not noted in ROS Statement are negative. Past Medical History Past Medical History: Atrial Fibrillation, Coronary Artery Disease (CAD), Chest Pain / Angina, Heart Failure, COPD, GERD/Reflux, Hyperlipidemia, Myocardial Infarction (LA), Osteoarthritis (OA), Pneumonia, Renal Disease Additional Past Medical History / Comment(s): Pt recently admitted to [facility] on 07/21/18 with dyspnea r/t CHF/cardiomyopathy and acute on chronic kidney disease. Other hx: Chronic Afib, neuropathy bilateral feet, gout bilateral feet, falls, occasional low back pain with bilateral sciatica with L side worse, hypothyroid, epistaxis with blood loss anemia. Last Myocardial Infarction Date:: 2012 History of Any Multi-Drug Resistant Organisms: None Reported Past Surgical History: Appendectomy, Back Surgery, Cardiac Ablation, Cholecystectomy, Coronary Bypass/CABG, Heart Catheterization With Stent, Hysterectomy Additional Past Surgical History / Comment(s): LOW, 1993 CABG-4 vessels, nasal cauterization, colonoscopy with benign polypectomy, D&C, bilateral cataract removals, R breast benign bx, lumbar laminectomy. Past Anesthesia/Blood Transfusion Reactions: Previous Problems w/ Anesthesia Additional Past Anesthesia/Blood Transfusion Reaction / Comment(s): Pt received blood 02/07/12 without reaction after epistaxis. Date of Last Stent Placement:: 03/2013 Past Psychological History: Anxiety, Depression Smoking Status: Former smoker Past Alcohol Use History: Occasional Past Drug Use History: None Reported - Past Family History Mother Additional Family Medical History / Comment(s): Mother was a heavy drinker. She lived to be in her 80's Father Family Medical History: No Reported History Additional Family Medical History / Comment(s): Father lived to be in his 80's General Exam Limitations: no limitations General appearance: alert, in no apparent distress Head exam: Present: atraumatic, normocephalic, normal inspection Eye exam: Present: normal appearance, PERRL, EOMI. Absent: scleral icterus, conjunctival injection, periorbital swelling ENT exam: Present: normal exam, mucous membranes moist Neck exam: Present: normal inspection. Absent: tenderness, meningismus, lymphadenopathy Respiratory exam: Present: normal lung sounds bilaterally. Absent: respiratory distress, wheezes, rales, rhonchi, stridor Cardiovascular Exam: Present: regular rate, normal rhythm, normal heart sounds. Absent: systolic murmur, diastolic murmur, rubs, gallop, clicks GI/Abdominal exam: Present: soft, normal bowel sounds. Absent: distended, tenderness, guarding, rebound, rigid Extremities exam: Present: normal inspection, full ROM, normal capillary refill. Absent: tenderness, pedal edema, joint swelling, calf tenderness Back exam: Present: normal inspection Neurological exam: Present: alert, oriented X3, CN II-XII intact Psychiatric exam: Present: normal affect, normal mood Skin exam: Present: warm, dry, intact, normal color. Absent: rash Course Vital Signs 10/22/18 10/22/18 10/22/18 09:41 10:00 10:20 Temperature 97.8 F Pulse Rate 61 63 Respiratory 22 Rate Blood Pressure 97/59 97/59 89/60 O2 Sat by Pulse 95 100 97 Oximetry 10/22/18 10/22/18 10/22/18 10:40 10:59 11:00 Temperature Pulse Rate 64 68 61 Respiratory Rate Blood Pressure 98/68 94/68 O2 Sat by Pulse 97 98 Oximetry 10/22/18 10/22/18 10/22/18 11:15 11:20 11:40 Temperature Pulse Rate 60 62 66 Respiratory Rate Blood Pressure 100/68 96/58 O2 Sat by Pulse 98 95 Oximetry 10/22/18 12:03 Temperature Pulse Rate 60 Respiratory Rate Blood Pressure 98/58 O2 Sat by Pulse Oximetry - Reevaluation(s) Reevaluation #1: 10/22/18 10:48 Medical record reviewed Reevaluation #2: 10/22/18 12:26 Patient does feel improved with breathing treatment here EKG Findings - EKG Comments: EKG Findings:: EKG shows A. fib rate of 60, QRS 80, QTC 406 Medical Decision Making - Medical Decision Making 83 female the ER for evaluation significant shortness of breath COPD and CHF with hypoxia - Lab Data Result diagrams: 10/22/18 10:37 10/22/18 10:37 Lab Results 10/22/18 10/22/18 10/22/18 Range/Units 10:37 10:37 10:37 WBC 8.6 (3.8-10.6) k/uL RBC 3.00 L (3.80-5.40) m/uL Hgb 9.5 L (11.4-16.0) gm/dL Hct 30.4 L (34.0-46.0) % MCV 101.6 H (80.0-100.0) fL MCH 31.8 (25.0-35.0) pg MCHC 31.3 (31.0-37.0) g/dL RDW 17.7 H (11.5-15.5) % Plt Count 267 (150-450) k/uL Neutrophils % 76 % Lymphocytes % 16 % Monocytes % 5 % Eosinophils % 2 % Basophils % 1 % Neutrophils # 6.5 (1.3-7.7) k/uL Lymphocytes # 1.3 (1.0-4.8) k/uL Monocytes # 0.4 (0-1.0) k/uL Eosinophils # 0.2 (0-0.7) k/uL Basophils # 0.1 (0-0.2) k/uL Hypochromasia Moderate Anisocytosis Slight Macrocytosis Moderate PT (9.0-12.0) sec INR (<1.2) APTT (22.0-30.0) sec Sodium 140 (137-145) mmol/L Potassium 4.4 (3.5-5.1) mmol/L Chloride 103 (98-107) mmol/L Carbon Dioxide 34 H (22-30) mmol/L Anion Gap 3 mmol/L BUN 32 H (7-17) mg/dL Creatinine 1.40 H (0.52-1.04) mg/dL Est GFR (CKD-EPI)AfAm 40 (>60 ml/min/1.73 sqM) Est GFR (CKD-EPI)NonAf 35 (>60 ml/min/1.73 sqM) Glucose 100 H (74-99) mg/dL Plasma Lactic Acid Prem 0.8 (0.7-2.0) mmol/L Calcium 8.9 (8.4-10.2) mg/dL Phosphorus 4.7 H (2.5-4.5) mg/dL Magnesium 2.4 H (1.6-2.3) mg/dL Total Bilirubin 0.5 (0.2-1.3) mg/dL AST 21 (14-36) U/L ALT 24 (9-52) U/L Alkaline Phosphatase 79 (38-126) U/L Troponin I (0.000-0.034) ng/mL NT-Pro-B Natriuret Pep pg/mL Total Protein 5.5 L (6.3-8.2) g/dL Albumin 3.2 L (3.5-5.0) g/dL 10/22/18 10/22/18 10/22/18 Range/Units 10:37 10:37 10:37 WBC (3.8-10.6) k/uL RBC (3.80-5.40) m/uL Hgb (11.4-16.0) gm/dL Hct (34.0-46.0) % MCV (80.0-100.0) fL MCH (25.0-35.0) pg MCHC (31.0-37.0) g/dL RDW (11.5-15.5) % Plt Count (150-450) k/uL Neutrophils % % Lymphocytes % % Monocytes % % Eosinophils % % Basophils % % Neutrophils # (1.3-7.7) k/uL Lymphocytes # (1.0-4.8) k/uL Monocytes # (0-1.0) k/uL Eosinophils # (0-0.7) k/uL Basophils # (0-0.2) k/uL Hypochromasia Anisocytosis Macrocytosis PT 10.1 (9.0-12.0) sec INR 0.9 (<1.2) APTT 23.7 (22.0-30.0) sec Sodium (137-145) mmol/L Potassium (3.5-5.1) mmol/L Chloride (98-107) mmol/L Carbon Dioxide (22-30) mmol/L Anion Gap mmol/L BUN (7-17) mg/dL Creatinine (0.52-1.04) mg/dL Est GFR (CKD-EPI)AfAm (>60 ml/min/1.73 sqM) Est GFR (CKD-EPI)NonAf (>60 ml/min/1.73 sqM) Glucose (74-99) mg/dL Plasma Lactic Acid Prem (0.7-2.0) mmol/L Calcium (8.4-10.2) mg/dL Phosphorus (2.5-4.5) mg/dL Magnesium (1.6-2.3) mg/dL Total Bilirubin (0.2-1.3) mg/dL AST (14-36) U/L ALT (9-52) U/L Alkaline Phosphatase (38-126) U/L Troponin I 0.039 H* (0.000-0.034) ng/mL NT-Pro-B Natriuret Pep 4570 pg/mL Total Protein (6.3-8.2) g/dL Albumin (3.5-5.0) g/dL - Radiology Data Radiology results: report reviewed (CXR positive for CHF), image reviewed Critical Care Time Critical Care Time: Yes Total Critical Care Time: 31 Disposition Clinical Impression: Congestive heart failure, Dyspnea, COPD with acute exacerbation, Hypoxia Disposition: ADMITTED IP TO THIS HOSP Condition: Fair Is patient prescribed a controlled substance at d/c from ED?: No Referrals: Tiera Kuhn MD [Primary Care Provider] - 1-2 days
[2018-10-22 10:48] LABS: Anisocytosis Slight; Basophils # (A) 0.1 k/uL (0-0.2); Basophils % (A) 1 %; Eosinophils # (A) 0.2 k/uL (0-0.7); Eosinophils % (A) 2 %; HCT 30.4 % (34.0-46.0); HGB 9.5 gm/dL (11.4-16.0); Hypochromasia Moderate; Lymphocytes # (A) 1.3 k/uL (1.0-4.8); Lymphocytes % (A) 16 %; MCH 31.8 pg (25.0-35.0); MCHC 31.3 g/dL (31.0-37.0); MCV 101.6 fL (80.0-100.0); Macrocytosis Moderate; Mean Platelet Volume 7.6; Monocytes # (A) 0.4 k/uL (0-1.0); Monocytes % (A) 5 %; Neutrophils # (A) 6.5 k/uL (1.3-7.7); Neutrophils % (A) 76 %; Platelet Count 267 k/uL (150-450); RDW 17.7 % (11.5-15.5); WBC 8.6 k/uL (3.8-10.6)
[2018-10-22 10:58] LABS: INR 0.9 (<1.2); Partial Thromboplastin Time 23.7 sec (22.0-30.0); Prothrombin Time 10.1 sec (9.0-12.0)
--- NOTE | 2018-10-22 10:59 | XR ---
EXAMINATION TYPE: XR chest 2V DATE OF EXAM: 10/22/2018 HISTORY: Weakness. REFERENCE: Previous study dated 10/04/2018. FINDINGS: There has been a midline sternotomy. There is chronic appearing elevation right hemidiaphragm. The heart is enlarged. There is platelike a telectasis at the left lung base. There is vascular congestion and mild pulmonary edema. There are sm all, bilateral effusions. IMPRESSION: FINDINGS CONSISTENT WITH CONGESTIVE HEART FAILURE.
[2018-10-22 11:04] LABS: Albumin 3.2 g/dL (3.5-5.0); Calcium 8.9 mg/dL (8.4-10.2); Magnesium 2.4 mg/dL (1.6-2.3); Phosphorus 4.7 mg/dL (2.5-4.5); Potassium 4.4 mmol/L (3.5-5.1); Total Bilirubin 0.5 mg/dL (0.2-1.3); Total Protein 5.5 g/dL (6.3-8.2)
[2018-10-22] MEDS ORDERED: methylPREDNISolone SOD SUCCI 125 MG/2 ML VIAL IV STA (12:20)
[2018-10-22] MEDS: FUROSEMIDE 10 MG/ML 4 ML VIAL IV SCH ×3 (12:32→20:57)
[2018-10-22] MEDS: SODIUM CHLORIDE 0.9% 1,000 ML IV SCH ×2 (12:52→20:52)
[2018-10-22] MEDS: IPRATROPIUM-ALBUTEROL 3 ML NEB INHALATION SCH ×2 (16:16→20:15)
[2018-10-22 16:35] LABS: Appearance,Urine Cloudy (Clear); Bilirubin,Urine Negative (Negative); Blood,Urine Negative (Negative); Color,Urine Yellow; Glucose,Urine (UA) Negative (Negative); Hyaline Casts,Urine 49 /lpf (0-2); Ketones,Urine Negative (Negative); Leukocyte Esterase,Urine Negative (Negative); Mucus,Urine Rare /hpf; Nitrite,Urine Negative (Negative); Protein,Urine Trace (Negative); RBC,Urine 1 /hpf (0-5); Specific Gravity,Urine 1.018 (1.001-1.035); Squamous Epithelial Cell,Urine 4 /hpf (0-4); Urobilinogen,Urine <2.0 mg/dL (<2.0); WBC,Urine 1 /hpf (0-5)
[2018-10-22 16:52] LABS: Glucose,Whole Blood 142 mg/dL (75-99)
[2018-10-22] MEDS ORDERED: ALPRAZolam 0.25 MG TAB PO PRN (18:17)
[2018-10-22] MEDS ORDERED: NITROGLYCERIN SL TABS 0.4 MG TAB SUBLINGUAL PRN (18:17)
[2018-10-22] MEDS: methylPREDNISolone SOD SUCCI 125 MG/2 ML VIAL IV SCH ×2 (18:57→23:44)
[2018-10-22] MEDS: FORMOTEROL FUMARATE 20 MCG/2 ML NEBU INHALATION SCH (20:15)
[2018-10-22 20:38] LABS: Glucose,Whole Blood 193 mg/dL (75-99)
[2018-10-22] MEDS: INSULIN ASPART (NovoLOG) 100 UNIT/ML VIAL SQ SCH (20:50)
[2018-10-22] MEDS: MONTELUKAST 10 MG TAB PO SCH (20:51)
[2018-10-22] MEDS: ASPIRIN 81 MG PO SCH (20:51)
[2018-10-23 03:25] LABS: Anisocytosis Slight; Basophils % (A) 0 %; Eosinophils # (A) 0.1 k/uL (0-0.7); Eosinophils % (A) 2 %; HCT 29.7 % (34.0-46.0); HGB 9.4 gm/dL (11.4-16.0); Hypochromasia Moderate; Lymphocytes # (A) 0.5 k/uL (1.0-4.8); Lymphocytes % (A) 8 %; MCH 32.1 pg (25.0-35.0); MCHC 31.7 g/dL (31.0-37.0); MCV 101.4 fL (80.0-100.0); Macrocytosis Slight; Mean Platelet Volume 7.4; Monocytes # (A) 0.1 k/uL (0-1.0); Monocytes % (A) 1 %; Neutrophils # (A) 5.6 k/uL (1.3-7.7); Neutrophils % (A) 88 %; Platelet Count 218 k/uL (150-450); RBC 2.93 m/uL (3.80-5.40); RDW 17.2 % (11.5-15.5); WBC 6.4 k/uL (3.8-10.6)
[2018-10-23 03:47] LABS: Albumin 3.3 g/dL (3.5-5.0); Calcium 8.8 mg/dL (8.4-10.2); Potassium 4.5 mmol/L (3.5-5.1); Total Bilirubin 0.4 mg/dL (0.2-1.3); Total Protein 5.5 g/dL (6.3-8.2)
[2018-10-23] MEDS ORDERED: IPRATROPIUM-ALBUTEROL 3 ML NEB INHALATION PRN (04:59)
[2018-10-23] MEDS: LEVOTHYROXINE 125 MCG TAB PO SCH (05:43)
[2018-10-23] MEDS: methylPREDNISolone SOD SUCCI 125 MG/2 ML VIAL IV SCH ×2 (05:43→11:37)
[2018-10-23 07:12] LABS: Glucose,Whole Blood 154 mg/dL (75-99)
[2018-10-23] MEDS: INSULIN ASPART (NovoLOG) 100 UNIT/ML VIAL SQ SCH ×3 (07:16→17:32)
[2018-10-23] MEDS: IPRATROPIUM-ALBUTEROL 3 ML NEB INHALATION SCH ×4 (07:44→20:06)
[2018-10-23] MEDS: FORMOTEROL FUMARATE 20 MCG/2 ML NEBU INHALATION SCH (07:52)
[2018-10-23] MEDS: CHOLECALCIFEROL 1,000 UNIT TAB PO SCH (08:19)
[2018-10-23] MEDS: ALLOPURINOL 300 MG TAB PO SCH (08:19)
[2018-10-23] MEDS: ISOSORBIDE MONONITRATE ER 30 MG TAB.ER.24H PO SCH (08:19)
[2018-10-23] MEDS: CYANOCOBALAMIN 500 MCG TAB PO SCH (08:19)
[2018-10-23] MEDS: ESCITALOPRAM 10 MG TAB PO SCH (08:19)
[2018-10-23] MEDS: ASPIRIN 81 MG PO SCH ×2 (08:20→20:37)
[2018-10-23] MEDS: ACETAMINOPHEN TAB 325 MG TAB PO PRN ×2 (10:26→22:26)
--- NOTE | 2018-10-23 10:43 | P.HPIM ---
History of Present Illness H&P Date: 10/23/18 This is an 83-year-old female patient of Dr. Kuhn. Patient reports that on Tuesday she was getting ready for baptism, she became increasingly short of breath and had to sit down. Patient reports that she called for assistance and EMS was called. Patient denies any cough or chest pain with initial shortness of breath episode. Patient denies any recent illness or fevers. Patient does have a past medical history of COPD and chronic respiratory failure maintained on 2 L home O2, congestive heart failure, A. fib not on annticoagulation due to frequent falls, GERD, hyperlipidemia, myocardial infarction, osteoarthritis, pneumonia, renal disease, coronary artery bypass graft surgery in 1983, previous heart cath with stents, anxiety and depression. Chest x-ray completing showing findings consistent consistent with congestive heart failure. BNP elevated at 4570. Initial troponin 0.039, 0.022 and 0.029. EKG showing atrial fibrillation. Patient started on IV Lasix 40 mg every 8 hours, Solu-Medrol 60 mg every 6 hours. Pulmonary cardiology consult placed. At this time patient is resting comfortably in chair. Patient is complaining of left knee pain from a previous fall. Acetaminophen ordered. Patient currently on 2 L in which she wears at home. Patient reports some improvement with her shortness of breath since arrival. Patient denies chest pain at this time per nursing staff patient did have an occurrence with ambulation of chest pain. Cardiology was notified per nursing staff. Patient also hypotensive upon arrival antihypertensive meds currently held. Awaiting cardiology input. Patient denies nausea vomiting or diarrhea. Patient denies any urinary burning or frequency. Review of Systems Please for HPI otherwise unremarkable Past Medical History Past Medical History: Atrial Fibrillation, Coronary Artery Disease (CAD), Chest Pain / Angina, Heart Failure, COPD, GERD/Reflux, Hyperlipidemia, Myocardial Infarction (MS), Osteoarthritis (OA), Pneumonia, Renal Disease Additional Past Medical History / Comment(s): Pt recently admitted to [facility] on 07/21/18 with dyspnea r/t CHF/cardiomyopathy and acute on chronic kidney disease. Other hx: Chronic Afib, neuropathy bilateral feet, gout bilateral feet, falls, occasional low back pain with bilateral sciatica with L side worse, hypothyroid, epistaxis with blood loss anemia, recent memory impairment Last Myocardial Infarction Date:: 2012 History of Any Multi-Drug Resistant Organisms: None Reported Past Surgical History: Appendectomy, Back Surgery, Cardiac Ablation, Cholecystectomy, Coronary Bypass/CABG, Heart Catheterization With Stent, Hyst erectomy Additional Past Surgical History / Comment(s): LOW, 1993 CABG-4 vessels, nasal cauterization, colonoscopy with benign polypectomy, D&C, bilateral cataract removals, R breast benign bx, lumbar laminectomy. Past Anesthesia/Blood Transfusion Reactions: Previous Problems w/ Anesthesia Additional Past Anesthesia/Blood Transfusion Reaction / Comment(s): Pt received blood 02/07/12 without reaction after epistaxis. Date of Last Stent Placement:: 03/2013 Past Psychological History: Anxiety, Depression Additional Psychological History / Comment(s): Pt resides alone. She uses a walker to ambulate. She drives. She has home oxygen and a nebulizer. Smoking Status: Former smoker Past Alcohol Use History: Occasional Additional Past Alcohol Use History / Comment(s): Pt has a glass of wine each evening. She started smoking in 1956 and quit in 1986. Past Drug Use History: None Reported - Past Family History Mother Additional Family Medical History / Comment(s): Mother was a heavy drinker. She lived to be in her 80's Father Family Medical History: No Reported History Additional Family Medical History / Comment(s): Father lived to be in his 80's Medications and Allergies Home Medications Medication Instructions Recorded Confirmed Type RX: Cyanocobalamin [Vitamin B-12] 500 mcg PO DAILY 10/03/13 10/22/18 History RX: Aspirin [Adult Low Dose 81 mg PO BID 01/10/16 10/22/18 History Aspirin EC] RX: ALPRAZolam [Xanax] 0.25 mg PO Q6H PRN 07/20/18 10/22/18 History RX: Albuterol Nebulized [Ventolin 2.5 mg INHALATION RT-Q4H PRN 07/20/18 10/22/18 History Nebulized] RX: Allopurinol [Zyloprim] 300 mg PO DAILY 07/20/18 10/22/18 History RX: Cholecalciferol [Vitamin D3 1,000 unit PO DAILY 07/20/18 10/22/18 History (25 Mcg = 1000 Iu)] RX: Escitalopram [Lexapro] 10 mg PO DAILY 07/20/18 10/22/18 History RX: Metoprolol Tartrate [Lopressor] 75 mg PO BID 07/20/18 10/22/18 History RX: Nitroglycerin Sl Tabs 0.4 mg SUBLINGUAL Q5M PRN 07/20/18 10/22/18 History [Nitrostat] RX: Montelukast [Singulair] 10 mg PO HS #30 tab 09/18/18 10/22/18 Rx RX: Furosemide [Lasix] 40 mg PO DAILY 30 Days #30 tab 10/06/18 10/22/18 Rx RX: Levothyroxine Sodium 125 mcg PO DAILY@0630 30 Days #30 10/06/18 10/22/18 Rx [Synthroid] tab Budesonide 0.05 mg INHALATION QID 10/22/18 10/22/18 History Formoterol Fumarate [Perforomist] 2 ml INHALATION BID 10/22/18 10/22/18 History Isosorbide Mononitrate [Isosorbide 30 mg PO DAILY 10/22/18 10/22/18 History Mononitrate ER] Metolazone [Zaroxolyn] 2.5 mg PO WEEKLY 10/22/18 10/22/18 History Allergies Allergy/AdvReac Type Severity Reaction Status Date / Time Rsrflxa-Acp-Iji Reductase Allergy Unknown Verified 10/22/18 14:54 Inhibitor Physical Exam Vitals: Vital Signs Temp Pulse Pulse Resp BP BP Pulse Ox 10/23/18 08:34 121 H 111/60 96 10/23/18 08:04 81 10/23/18 07:55 83 10/23/18 07:53 94 L 10/23/18 07:44 80 10/23/18 07:00 97.6 F 104 H 16 125/72 93 L 10/23/18 05:45 76 10/23/18 05:13 76 10/23/18 04:11 79 18 94/52 96 10/23/18 03:15 136/78 10/23/18 00:56 97.7 F 90 16 95/48 92 L 10/22/18 20:35 80 10/22/18 20:28 80 10/22/18 20:18 78 95 10/22/18 19:52 98.0 F 77 17 108/59 92 L 10/22/18 19:45 18 10/22/18 16:26 78 10/22/18 16:20 95 10/22/18 16:19 78 10/22/18 15:02 18 98 10/22/18 13:45 98.2 F 60 18 99/59 85 L 10/22/18 12:26 64 18 102/53 96 10/22/18 12:15 66 98/58 95 10/22/18 12:03 60 98/58 10/22/18 11:40 66 96/58 95 10/22/18 11:20 62 100/68 98 10/22/18 11:15 60 10/22/18 11:00 61 94/68 98 10/22/18 10:59 68 10/22/18 10:40 64 98/68 97 Intake and Output 10/22/18 10/23/18 10/23/18 22:59 06:59 14:59 Intake Total 240 Output Total 200 300 Balance -200 -300 240 Intake: Oral 240 Output: Urine 200 300 Other: Voiding Method Toilet # Voids 1 Head normocephalic Neck supple Lungs diminished bilaterally with expiratory wheezing Heart regular rate and rhythm S1-S2, no rub or gallop Abdomen is soft nontender nondistended positive bowel sounds no hepatosplenomegaly Extremities no edema Neuro alert and orientated to 3 Results CBC & Chem 7: 10/23/18 03:12 10/23/18 03:12 Labs: Abnormal Lab Results - Last 24 Hours (Table) 10/22/18 10/22/18 10/22/18 Range/Units 10:37 10:37 10:37 RBC 3.00 L (3.80-5.40) m/uL Hgb 9.5 L (11.4-16.0) gm/dL Hct 30.4 L (34.0-46.0) % MCV 101.6 H (80.0-100.0) fL RDW 17.7 H (11.5-15.5) % Lymphocytes # (1.0-4.8) k/uL Carbon Dioxide 34 H (22-30) mmol/L BUN 32 H (7-17) mg/dL Creatinine 1.40 H (0.52-1.04) mg/dL Glucose 100 H (74-99) mg/dL POC Glucose (mg/dL) (75-99) mg/dL Phosphorus 4.7 H (2.5-4.5) mg/dL Magnesium 2.4 H (1.6-2.3) mg/dL Troponin I 0.039 H* (0.000-0.034) ng/mL Total Protein 5.5 L (6.3-8.2) g/dL Albumin 3.2 L (3.5-5.0) g/dL Urine Appearance (Clear) Urine Protein (Negative) Hyaline Casts (0-2) /lpf Urine Mucus (None) /hpf 10/22/18 10/22/18 10/22/18 Range/Units 16:08 16:49 20:27 RBC (3.80-5.40) m/uL Hgb (11.4-16.0) gm/dL Hct (34.0-46.0) % MCV (80.0-100.0) fL RDW (11.5-15.5) % Lymphocytes # (1.0-4.8) k/uL Carbon Dioxide (22-30) mmol/L BUN (7-17) mg/dL Creatinine (0.52-1.04) mg/dL Glucose (74-99) mg/dL POC Glucose (mg/dL) 142 H 193 H (75-99) mg/dL Phosphorus (2.5-4.5) mg/dL Magnesium (1.6-2.3) mg/dL Troponin I (0.000-0.034) ng/mL Total Protein (6.3-8.2) g/dL Albumin (3.5-5.0) g/dL Urine Appearance Cloudy H (Clear) Urine Protein Trace H (Negative) Hyaline Casts 49 H (0-2) /lpf Urine Mucus Rare H (None) /hpf 10/23/18 10/23/18 10/23/18 Range/Units 03:12 03:12 07:00 RBC 2.93 L (3.80-5.40) m/uL Hgb 9.4 L (11.4-16.0) gm/dL Hct 29.7 L (34.0-46.0) % MCV 101.4 H (80.0-100.0) fL RDW 17.2 H (11.5-15.5) % Lymphocytes # 0.5 L (1.0-4.8) k/uL Carbon Dioxide (22-30) mmol/L BUN 36 H (7-17) mg/dL Creatinine 1.26 H (0.52-1.04) mg/dL Glucose 152 H (74-99) mg/dL POC Glucose (mg/dL) 154 H (75-99) mg/dL Phosphorus (2.5-4.5) mg/dL Magnesium (1.6-2.3) mg/dL Troponin I (0.000-0.034) ng/mL Total Protein 5.5 L (6.3-8.2) g/dL Albumin 3.3 L (3.5-5.0) g/dL Urine Appearance (Clear) Urine Protein (Negative) Hyaline Casts (0-2) /lpf Urine Mucus (None) /hpf Microbiology - Last 24 Hours (Table) 10/22/18 16:08 Urine Culture - Preliminary Urine,Voided Thrombosis Risk Factor Assmnt - Choose All That Apply Each Factor Represents 1 point: Heart failure (<1month), Obesity (BMI >25), S erious lung disease incl. pneumonia (< 1month) Each Risk Factor Represents 3 Points: Age 75 years or older Thrombosis Risk Factor Assessment Total Risk Factor Score: 6 Thrombosis Risk Factor Assessment Level: High Risk Assessment and Plan Assessment: 1. Acute on chronic diastolic congestive heart failure. BNP elevated at 4570. Chest x-ray completed in correlation for congestive heart failure. Patient started on IV Lasix. Cardiac he services have been consulted. 2. COPD exacerbation. Patient started on Solu-Medrol pulmonary services have been consulted 3. Hypotension. Patient's Lopressor currently on hold awaiting cardiology input 4. Chronic A. fib controlled heart rate. Patient not on anticoagulation due to high risk of bleeding in the past with falls. This was discussed during previous admission with patient and cardiology services. 5. History of frequent falls 6. History of coronary artery disease with history of CABG and cardiac stents 7. History of chronic kidney disease stage III. Creatinine 1.26 and bun 36, this does appear baseline for patient 8. Hypothyroidism. Maintained on Synthroid 9. Anemia. Iron studies will be ordered DVT prophylaxis heparin. GI prophylaxis Protonix Time with Patient: Greater than 30 (Greater than 60% of the total time spent in counseling and coordination of care. I performed an examination of the patient and discussed their management with the Nurse Practitioner. I have reviewed the Nurse Practitioner's notes and agree with the documented findings and plan of care)
[2018-10-23 11:11] VITALS: BMI 31.2
[2018-10-23] MEDS: FUROSEMIDE 10 MG/ML 4 ML VIAL IV SCH ×2 (11:44→20:37)
[2018-10-23 11:53] LABS: Glucose,Whole Blood 127 mg/dL (75-99)
--- NOTE | 2018-10-23 13:43 | P.CRDCN ---
History of Present Illness History of present illness: This is a pleasant 83-year-old female past medical history significant for coronary artery disease status post bypass grafting, chronic kidney disease, chronic persistent atrial fibrillation not on fpc anticoagulation secondary to GI bleeding, carotid artery atherosclerosis, dyslipidemia and COPD on home oxygen. She follows in the office with Dr. Parada. We have been asked to see her in consultation secondary to heart failure, hypotension and a-fib. She has had frequent hospitalizations recently related to shortness of breath. She recently was seen in the office and recommendations made to increase lopressor to 100 mg BID and discontinue imdur secondary to Holter monitoring revealing persistent elevated heart rates around 115 bpm. She is seen and examined sitting up in the chair eating breakfast. She states she is short of breath at rest and mildly worse with exertion. She states she was up to the bathroom this morning and had an episode of chest pain described as a tightness that was in the left precoridal region worse with deep inspiration. Currently chest pain free. This episode of shortness of breath came on acutely while she was getting ready to [facility] Tuesday. She was up in the bathroom and had to sit on the bed to attempt to catch her breath. She has been initiated on lasix 40 mg TID IV. She had some episodes of hypotension on admission and therefore lopressor was held. Heart rates this morning are elevated. EKG reveals atrial fibrillation rate of [address] abnormalities. Chest x-ray reveals platelike atelectasis at the left lung base, vascular congestion and mild pulmonary edema with small bilateral effusions noted. Laboratory data reviewed, WBC 6.4, hgb 9.4, plt 218, sodium 140, potassium 4.5, creatinine 1.26 with GFR of 39, magnesium on admission 2.4, troponin 0.039, 0.022 and 0.029, NTproBNP 4570. Current cardiac include aspirin 81 mg daily, lasix 40 mg daily, imdur 30 mg daily, metolazone 2.5 mg weekly and lopressor 75 mg BID. Most recent echocardiogram obtained 08/2018 reveals preserved LV systolic function with EF 55-60%, severely dilated LA, mild aortic valve sclerosis, severe MR, mild TR and mild pulmonary hypertension with RVSP 43 mmHg. At the time of my exam: CONSTITUTIONAL: Denies fever. Denies chills. EYES: Denies blurred vision. Denies vision changes. Denies eye pain. EARS, NOSE, MOUTH & THROAT: Denies headache. Denies sore throat. Denies ear pain. CARDIOVASCULAR: Denies chest pain. Complains of shortness of breath. Denies orthopnea. Denies PND. Denies palpitations. RESPIRATORY: Denies cough. GASTROINTESTINAL: Denies abdominal pain. Denies diarrhea. Denies constipation. Denies nausea. Denies vomiting. MUSCULOSKELETAL: Denies myalgias. INTEGUMENTARY: Denies pruitis. Denies rash. NEUROLOGIC: Denies numbness. Denies tingling. Denies weakness. PSYCHIATRIC: Denies anxiety. Denies depression. ENDOCRINE: Denies fatigue. Denies weight change. Denies polydipsia. Denies polyurina. GENITOURINARY: Denies burning, hematuria or urgency with micturation. HEMATOLOGIC: Denies history of anemia. Denies bleeding. Blood [id number] heart rate 111 afebrile maintaining oxygen saturation on na adin cannula GENERAL: This is a 83-year-old female in no apparent distress at the time of my examination. HEENT: Head is atraumatic, normocephalic. Pupils are equal, round. Sclerae anicteric. Conjunctivae are clear. Mucous membranes of the mouth are moist. Neck is supple. There is no jugular venous distention. No carotid bruit is heard. LUNGS: Faint bibasilar rales, no rhonchi or wheezes. No chest wall tenderness is noted on palpation or with deep breathing. HEART: Irregular rate and rhythm with systolic ejection murmur at the apex, no rubs or gallops. S1 and S2 heard. ABDOMEN: Soft, nontender. Bowel sounds are heard. No organomegaly noted. EXTREMITIES: Trace bilateral lower extremity edema. No calf tenderness noted. VASCULAR: Radial and dorsalis pedis pulses palpated, no evidence of clubbing. NEUROLOGIC: Patient is awake, alert and oriented x3. ASSESSMENT Acute on chronic diastolic heart failure Acute exacerbation of COPD Chronic mild troponin elevation, not indicative of an acute coronary event. Secondary to chronic kidney disease and oxygen supply/demand mismatch Chronic persistent atrial fibrillation not on fpc anti-coagulation due to history of GI bleeding History of coronary artery disease s/p bypass grafting and subsequent stent placement. Currently being treated conservatively secondary to chronic kidney disease. Dyslipidemia Chronic kidney disease Carotid atherosclerosis, bilateral Non-rheumatic mitral regurgitation PLAN Continue IV diuresis. Document accurate intake and output along with daily weights. Resume lopressor at 100 mg BID, first dose now. Repeat kidney function and electrolytes in the morning. We will continue to follow and make recommendations accordingly. Thank you kindly for this consultation. Nurse Practitioner note has been reviewed, I agree with a documented findings and plan of care. Patient was seen and examined. Past Medical History Past Medical History: Atrial Fibrillation, Coronary Artery Disease (CAD), Chest Pain / Angina, Heart Failure, COPD, GERD/Reflux, Hyperlipidemia, Myocardial Infarction (MO), Osteoarthritis (OA), Pneumonia, Renal Disease Additional Past Medical History / Comment(s): Pt recently admitted to [facility] on 07/21/18 with dyspnea r/t CHF/cardiomyopathy and acute on chronic kidney disease. Other hx: Chronic Afib, neuropathy bilateral feet, gout bilateral feet, falls, occasional low back pain with bilateral sciatica with L side worse, hypothyroid, epistaxis with blood loss anemia, recent memory impairment Last Myocardial Infarction Date:: 2012 History of Any Multi-Drug Resistant Organisms: None Reported Past Surgical History: Appendectomy, Back Surgery, Cardiac Ablation, Cholecystectomy, Coronary Bypass/CABG, Heart Catheterization With Stent, Hysterectomy Additional Past Surgical History / Comment(s): LOW, 1993 CABG-4 vessels, nasal cauterization, colonoscopy with benign polypectomy, D&C, bilateral cataract r emovals, R breast benign bx, lumbar laminectomy. Past Anesthesia/Blood Transfusion Reactions: Previous Problems w/ Anesthesia Additional Past Anesthesia/Blood Transfusion Reaction / Comment(s): Pt received blood 02/07/12 without reaction after epistaxis. Date of Last Stent Placement:: 03/2013 Past Psychological History: Anxiety, Depression Additional Psychological History / Comment(s): Pt resides alone. She uses a walker to ambulate. She drives. She has home oxygen and a nebulizer. Smoking Status: Former smoker Past Alcohol Use History: Occasional Additional Past Alcohol Use History / Comment(s): Pt has a glass of wine each evening. She started smoking in 6 and quit in 1986. Past Drug Use History: None Reported - Past Family History Mother Additional Family Medical History / Comment(s): Mother was a heavy drinker. She lived to be in her 80's Father Family Medical History: No Reported History Additional Family Medical History / Comment(s): Father lived to be in his 80's Medications and Allergies Home Medications Medication Instructions Recorded Confirmed Type Cyanocobalamin [Vitamin B-12] 500 mcg PO DAILY 10/03/13 10/22/18 History Aspirin [Adult Low Dose Aspirin EC] 81 mg PO BID 01/10/16 10/22/18 History ALPRAZolam [Xanax] 0.25 mg PO Q6H PRN 07/20/18 10/22/18 History Albuterol Nebulized [Ventolin 2.5 mg INHALATION RT-Q4H PRN 07/20/18 10/22/18 History Nebulized] Allopurinol [Zyloprim] 300 mg PO DAILY 07/20/18 10/22/18 History Cholecalciferol [Vitamin D3 (25 1,000 unit PO DAILY 07/20/18 10/22/18 History Mcg = 1000 Iu)] Escitalopram [Lexapro] 10 mg PO DAILY 07/20/18 10/22/18 History Metoprolol Tartrate [Lopressor] 75 mg PO BID 07/20/18 10/22/18 History Nitroglycerin Sl Tabs [Nitrostat] 0.4 mg SUBLINGUAL Q5M PRN 07/20/18 10/22/18 History Montelukast [Singulair] 10 mg PO HS #30 tab 09/18/18 10/22/18 Rx Furosemide [Lasix] 40 mg PO DAILY 30 Days #30 tab 10/06/18 10/22/18 Rx Levothyroxine Sodium [Synthroid] 125 mcg PO DAILY@0630 30 Days #30 10/06/18 10/22/18 Rx tab Budesonide 0.05 mg INHALATION QID 10/22/18 10/22/18 History Formoterol Fumarate [Perforomist] 2 ml INHALATION BID 10/22/18 10/22/18 History Isosorbide Mononitrate [Isosorbide 30 mg PO DAILY 10/22/18 10/22/18 History Mononitrate ER] Metolazone [Zaroxolyn] 2.5 mg PO WEEKLY 10/22/18 10/22/18 History Allergies Allergy/AdvReac Type Severity Reaction Status Date / Time [id number] Reductase Allergy Unknown Verified 10/22/18 14:54 Inhibitor Physical Exam Vitals: Vital Signs Temp Pulse Pulse Resp BP Pulse Ox 10/23/18 12:06 110 H 06/03/19 11:55 112 H 10/23/18 11:54 111 H 122/72 98 10/23/18 08:34 121 H 111/60 96 10/23/18 08:04 81 10/23/18 07:55 83 10/23/18 07:53 94 L 10/23/18 07:44 80 10/23/18 07:00 97.6 F 104 H 16 125/72 93 L 10/23/18 05:45 76 10/23/18 05:13 76 10/23/18 04:11 79 18 94/52 96 10/23/18 03:15 136/78 10/23/18 00:56 97.7 F 90 16 95/48 92 L 10/22/18 20:35 80 10/22/18 20:28 80 10/22/18 20:18 78 95 10/22/18 19:52 98.0 F 77 17 108/59 92 L 10/22/18 19:45 18 10/22/18 16:26 78 10/22/18 16:20 95 10/22/18 16:19 78 10/22/18 15:02 18 98 10/22/18 13:45 98.2 F 60 18 99/59 85 L Intake and Output 10/22/18 10/23/18 10/23/18 22:59 06:59 14:59 Intake Total 240 Output Total 200 300 Balance -200 -300 240 Intake: Oral 240 Output: Urine 200 300 Other: Voiding Method Toilet # Voids 1 Weight 86.8 kg 82.554 kg Results 10/23/18 03:12 10/23/18 03:12 Cardiac Enzymes 10/22/18 10/23/18 10/23/18 Range/Units 21:03 03:12 03:12 AST 22 (14-36) U/L Troponin I 0.022 0.029 (0.000-0.034) ng/mL CBC 10/23/18 Range/Units 03:12 WBC 6.4 (3.8-10.6) k/uL RBC 2.93 L (3.80-5.40) m/uL Hgb 9.4 L (11.4-16.0) gm/dL Hct 29.7 L (34.0-46.0) % Plt Count 218 (150-450) k/uL Comprehensive Metabolic Panel 10/23/18 Range/Units 03:12 Sodium 140 (137-145) mmol/L Potassium 4.5 (3.5-5.1) mmol/L Chloride 106 (98-107) mmol/L Carbon Dioxide 29 (22-30) mmol/L BUN 36 H (7-17) mg/dL Creatinine 1.26 H (0.52-1.04) mg/dL Glucose 152 H (74-99) mg/dL Calcium 8.8 (8.4-10.2) mg/dL AST 22 (14-36) U/L ALT 20 (9-52) U/L Alkaline Phosphatase 75 (38-126) U/L Total Protein 5.5 L (6.3-8.2) g/dL Albumin 3.3 L (3.5-5.0) g/dL Current Medications Generic Name Dose Route Start Last Admin Trade Name Freq PRN Reason Stop Dose Admin Acetaminophen 650 mg 10/23/18 10:05 10/23/18 10:26 Tylenol Tab PO 650 mg Q6HR PRN Administration Fever and/ or Pain Albuterol/Ipratropium 3 ml 10/22/18 16:00 10/23/18 11:54 Duoneb 0.5 Mg-3 Mg/3 Ml Soln INHALATION 3 ml RT-QID MAIKOL Administration Albuterol/Ipratropium 3 ml 10/23/18 04:59 10/23/18 05:13 Duoneb 0.5 Mg-3 Mg/3 Ml Soln INHALATION 3 ml RT-TID PRN Administration Shortness Of Breath Or Wheezing Allopurinol 300 mg 10/23/18 09:00 10/23/18 08:19 Zyloprim PO 300 mg DAILY MAIKOL Administration Alprazolam 0.25 mg 10/22/18 18:17 Xanax PO Q6H PRN Anxiety Aspirin 81 mg 10/22/18 21:00 10/23/18 08:20 Aspirin PO 81 mg BID MAIKOL Administration Cholecalciferol 1,000 unit 10/23/18 09:00 10/23/18 08:19 Vitamin D3 (25 Mcg = 1000 Iu) PO 1,000 unit DAILY MAIKOL Administration Cyanocobalamin 500 mcg 10/23/18 09:00 10/23/18 08:19 Vitamin B-12 PO 500 mcg DAILY MAIKOL Administration Escitalopram Oxalate 10 mg 10/23/18 09:00 10/23/18 08:19 Lexapro PO 10 mg DAILY [facility] Administration Formoterol Fumarate 20 mcg 10/22/18 20:00 10/23/18 07:52 Perforomist INHALATION 20 mcg RT-BID MAIKOL Administration Furosemide 40 mg 10/22/18 12:30 10/23/18 11:44 Lasix IV 40 mg Q8H MAIKOL Administration Heparin Sodium (Porcine) 5,000 unit 10/23/18 21:00 Heparin SQ Q12HR [facility] Sodium Chloride 1,000 mls @ 20 mls/hr 10/22/18 12:30 10/22/18 20:52 Saline 0.9% IV 20 mls/hr .Q24H MAIKOL Administration Insulin Aspart 0 unit 10/22/18 21:00 10/23/18 12:26 Novolog SQ 1 unit ACHS [facility] Administration Protocol Isosorbide Mononitrate 30 mg 10/23/18 09:00 10/23/18 08:19 Imdur PO 30 mg DAILY [facility] Administration Levothyroxine Sodium 125 mcg 10/23/18 06:30 10/23/18 05:43 Synthroid PO 125 mcg DAILY@0630 [facility] Administration Methylprednisolone Sodium Succinate 60 mg 10/22/18 18:00 10/23/18 11:37 Solu-Medrol IV 60 mg Q6HR [facility] Administration Montelukast Sodium 10 mg 10/22/18 21:00 10/22/18 20:51 Singulair PO 10 mg HS [facility] Administration Nitroglycerin 0.4 mg 10/22/18 18:17 10/23/18 08:32 Nitrostat SUBLINGUAL 0.4 mg Q5M PRN Administration Chest Pain Pantoprazole Sodium 40 mg 10/24/18 07:30 Protonix PO AC-BRKFST MAIKOL Intake and Output 10/22/18 10/23/18 10/23/18 22:59 06:59 14:59 Intake Total 240 Output Total 200 300 Balance -200 -300 240 Intake: Oral 240 Output: Urine 200 300 Other: Voiding Method Toilet # Voids 1 Weight 86.8 kg 82.554 kg Patient Weight 10/24/18 06:59 Weight 82.554 kg 10/23/18 03:12 10/23/18 03:12
[2018-10-23 14:13] LABS: Glucose,Whole Blood 209 mg/dL (75-99)
[2018-10-23 15:01] LABS: Hemoglobin A1C 5.4 % (4.0-6.0)
[2018-10-23] MEDS: METOPROLOL TARTRATE 50 MG TAB PO SCH ×2 (15:15→20:37)
[2018-10-23 17:17] LABS: Glucose,Whole Blood 154 mg/dL (75-99)
[2018-10-23 18:08] LABS: Iron Saturation 14.29 (12.00-45.00)
--- NOTE | 2018-10-23 18:19 | CONS ---
CONSULTATION PULMONARY CRITICAL CARE CONSULTATION: DATE OF CONSULTATION: 10/23/2018 This is an 83-year-old female seen in the emergency room on October 22 for shortness of breath. She states that she is short of breath with any activity. Even just walking a few feet to go to the bathroom she became very short of breath. She also felt like everything was going black on her. She felt like he was going to pass out. She did not pass out, though. She denies any chest pain. The patient states that she was not having any significant cough or phlegm production. No wheezing or chest tightness. She does have a previous history of tobacco use. She smoked about 25 years at a pack a day. She has not been smoking for some time now. She may have some underlying COPD. She has never seen a lung doctor. She was told by her primary doctor, Dr. Kuhn, that she may have underlying COPD. Anyway, she was evaluated in the emergency room for the shortness of breath and the diagnosis at that time was congestive heart failure, dyspnea, COPD with an acute exacerbation and hypoxia. Currently, the patient is sitting in the chair at the bedside. She is wearing nasal O2. She does wear nasal O2 at home 13/12. She does have breathing medications at home as well. Her chest x-ray in my opinion is consistent with fluid overload. She had a modestly elevated troponin and her N-terminal proBNP was 4570. She also complained of some weight gain and some mild lower extremity edema. HOME MEDICATIONS: Reviewed. They include B12, aspirin, Xanax, albuterol updrafts, Zyloprim, vitamin D3, Lexapro, metoprolol, Nitrostat, Demadex, Singulair, Lasix, and levothyroxine. ALLERGIES: Include STATIN DRUGS. MEDICAL HISTORY: Atrial fibrillation, CAD, angina, heart failure, possible COPD, GERD, hyperlipidemia, myocardial infarction, DJD, chronic kidney disease, and pneumonia. She also has a history of neuropathy and gout, chronic low back pain, sciatica, hypothyroidism, epistaxis and anemia. SURGICAL HISTORY: Includes appendectomy, back surgery, cardiac ablation, cholecystectomy, coronary bypass grafting, heart catheterization with stent, hysterectomy, transesophageal echocardiogram, nasal cauterization, colonoscopy, bilateral cataract surgery, D and C, right breast biopsy which was benign and laminectomy. SOCIAL HISTORY: Positive for previous tobacco use. She smoked about 20-25 years about a pack a day. She quit many years back. Social history was also positive for occasional alcohol use. She denies illicit drug use. FAMILY HISTORY: Noncontributory other than the fact that the mother was a heavy drinker. REVIEW OF SYSTEMS: CONSTITUTIONAL: Negative. NEUROLOGIC: Negative. HEENT: Negative. CARDIOVASCULAR: Negative. PULMONARY: Shortness of breath. GI: Negative. : Negative. RHEUMATOLOGIC: Negative. IMMUNOLOGIC: Negative. ENDOCRINOLOGIC: Negative. DERMATOLOGIC: Negative. PHYSICAL EXAMINATION: Current vital signs are reviewed. Temperature is 97.6, heart rate 110 and irregular, blood pressure 122/72, respirations 16, 3 L saturation 98%, mean arterial pressure 88. She appears in no acute distress. She is sitting in the chair at the bedside. Nasal O2 in place. There is no audible wheezing. There is no use of accessory muscles. There is no conversational dyspnea. HEENT examination is grossly unremarkable. Mucous membranes are moist. NECK: Supple. Full range of motion. No adenopathy or thyromegaly. Neck veins are flat. CARDIOVASCULAR examination reveals regular rhythm rate. Heart rate about 110. She is clearly in atrial fibrillation. S1, S2 normal. No distinct murmur noted. LUNGS: Reveal some bibasilar crackles. No wheezes or rhonchi. Breath sounds equal. ABDOMEN: Soft. Bowel sounds heard. EXTREMITIES: Intact. Mild edema. SKIN: Without rash. NEUROLOGIC examination is brief but nonfocal. Microbiologic studies are thus far negative. White count 6.4, hemoglobin 9.4, hematocrit 29.7, platelet count is 218,000. Sodium, potassium, chloride and CO2 all normal. BUN and creatinine were 36 and 1.26. Troponins were 0.022 and 0.029 and 0.039. Her N-terminal proBNP was elevated at 4570. Urine was essentially negative. Chest x-ray reveals evidence of fluid overload. There is cardiomegaly, bilateral pleural effusions, probably right greater than left and some cephalization. ASSESSMENT: 1. Shortness of breath, likely most related to underlying congestive heart failure, although small component of chronic obstructive pulmonary disease cannot be excluded. 2. Chronic atrial fibrillation. 3. Status post bypass grafting, four vessel. 4. History of coronary artery disease. 5. Angina pectoris. 6. Gastroesophageal reflux disease. 7. Hyperlipidemia. 8. Previous history of myocardial infarction. 9. Degenerative joint disease. 10.Chronic kidney disease. 11.History of pneumonia. 12.Previous history of tobacco use. 13.Cardiomyopathy. 14.Sciatic neuralgia. 15.Multiple previous surgical procedures. PLAN: Medications will be reviewed. Currently, she is on updrafts, Solu-Medrol and Lasix 40 mg IV q.8 hours. I do not believe she needs the Solu-Medrol. I will discontinue the Solu-Medrol in favor of Symbicort. Additional recommendations and suggestions are forthcoming. Prognosis is guarded. It will be helpful to see her after discharge in the office for pulmonary function test to better understand the severity of her chronic lung disease. She did smoke a pack a day for about 20-25 years. MMODL / IJN: [id number] /
[2018-10-23] MEDS: SYMBICORT 160-4.5 MCG INHALER INHALATION SCH (20:06)
[2018-10-23] MEDS: MONTELUKAST 10 MG TAB PO SCH (20:37)
[2018-10-23] MEDS: HEPARIN SODIUM,PORCINE 5,000 UNIT/ML 1 ML VIAL SQ SCH (20:37)
[2018-10-24] MEDS: SODIUM CHLORIDE 0.9% 1,000 ML IV SCH (01:49)
[2018-10-24] MEDS: FUROSEMIDE 10 MG/ML 4 ML VIAL IV SCH (05:03)
[2018-10-24] MEDS: LEVOTHYROXINE 125 MCG TAB PO SCH (05:03)
[2018-10-24 08:16] LABS: Anisocytosis Slight; Basophils % (A) 0 %; Eosinophils # (A) 0.1 k/uL (0-0.7); Eosinophils % (A) 1 %; HCT 32.2 % (34.0-46.0); HGB 10.1 gm/dL (11.4-16.0); Hypochromasia Moderate; Lymphocytes # (A) 0.8 k/uL (1.0-4.8); Lymphocytes % (A) 5 %; MCH 32.1 pg (25.0-35.0); MCHC 31.3 g/dL (31.0-37.0); MCV 102.6 fL (80.0-100.0); Macrocytosis Moderate; Mean Platelet Volume 7.6; Monocytes # (A) 0.5 k/uL (0-1.0); Monocytes % (A) 3 %; Neutrophils # (A) 13.4 k/uL (1.3-7.7); Neutrophils % (A) 90 %; Platelet Count 298 k/uL (150-450); RBC 3.14 m/uL (3.80-5.40); WBC 14.9 k/uL (3.8-10.6)
[2018-10-24 08:17] LABS: Albumin 3.8 g/dL (3.5-5.0); Calcium 9.6 mg/dL (8.4-10.2); Potassium 4.4 mmol/L (3.5-5.1); Total Bilirubin 0.5 mg/dL (0.2-1.3); Total Protein 6.2 g/dL (6.3-8.2)
[2018-10-24] MEDS: PANTOPRAZOLE 40 MG TABLET PO SCH (08:34)
[2018-10-24] MEDS: ISOSORBIDE MONONITRATE ER 30 MG TAB.ER.24H PO SCH (08:34)
[2018-10-24] MEDS: ALLOPURINOL 300 MG TAB PO SCH (08:34)
[2018-10-24] MEDS: ASPIRIN 81 MG PO SCH ×2 (08:34→20:55)
[2018-10-24] MEDS: METOPROLOL TARTRATE 50 MG TAB PO SCH ×2 (08:34→20:54)
[2018-10-24] MEDS: ESCITALOPRAM 10 MG TAB PO SCH (08:34)
[2018-10-24] MEDS: CHOLECALCIFEROL 1,000 UNIT TAB PO SCH (08:35)
[2018-10-24] MEDS: CYANOCOBALAMIN 500 MCG TAB PO SCH (08:35)
[2018-10-24] MEDS: SYMBICORT 160-4.5 MCG INHALER INHALATION SCH ×2 (08:44→21:01)
[2018-10-24] MEDS: IPRATROPIUM-ALBUTEROL 3 ML NEB INHALATION SCH ×4 (08:45→21:02)
[2018-10-24] MEDS: HEPARIN SODIUM,PORCINE 5,000 UNIT/ML 1 ML VIAL SQ SCH ×2 (08:45→20:54)
[2018-10-24] MEDS: FUROSEMIDE 40 MG TAB PO SCH ×2 (09:21→17:22)
--- NOTE | 2018-10-24 11:15 | P.PN ---
Subjective This is a pleasant 83-year-old female past medical history significant for coronary artery disease status post bypass grafting, chronic kidney disease, chronic persistent atrial fibrillation not on long term care administrator anticoagulation secondary to GI bleeding, carotid artery atherosclerosis, dyslipidemia and COPD on home oxygen. She follows in the office with Dr. Parada. She is seen and examined sitting up in the chair. She has had no further episodes of chest discomfort. He continues to feel short of breath with exertion. She has been seen by pulmonary care team and thought to be in heart failure rather then exacerbation of COPD. Weight is down 4 kg since admission and she states he has been up to the bathroom multiple times. Blood pressure 103/67 heart rate 100 afebrile and maintaining oxygen saturation on nasal cannula. Laboratory data reviewed, WBC 14.9, hgb 10.2, platelets 298, sodium 139, potassium 4.4, creatinine 1.51 with GFR 32. Currently maintained on aspirin 81 mg BID, lasix 40 mg IV TID, imdur 30 mg daily and lopressor 100 mg BID. GENERAL: This is a 83-year-old female in no apparent distress at the time of my examination. HEENT: Head is atraumatic, normocephalic. Pupils are equal, round. Sclerae anicteric. Conjunctivae are clear. Mucous membranes of the mouth are moist. Neck is supple. There is no jugular venous distention. No carotid bruit is heard. LUNGS: Clear to auscultation bilaterally. No rales, rhonchi or wheezes. No chest wall tenderness is noted on palpation or with deep breathing. HEART: Irregular rate and rhythm with systolic ejection murmur at the apex, no rubs or gallops. S1 and S2 heard. EXTREMITIES: Trace bilateral lower extremity edema, non-pitting. No calf tenderness noted. ASSESSMENT Acute on chronic diastolic heart failure, EF 55-60% Leukocytosis Acute exacerbation of COPD Chronic mild troponin elevation, not indicative of an acute coronary event. Secondary to chronic kidney disease and oxygen supply/demand mismatch Chronic persistent atrial fibrillation not on residential anti-coagulation due to history of GI bleeding History of coronary artery disease s/p bypass grafting and subsequent stent placement. Currently being treated conservatively secondary to chronic kidney disease. Dyslipidemia Chronic kidney disease Carotid atherosclerosis, bilateral Non-rheumatic mitral regurgitation, severe Pulmonary hypertension, RVSP 43 PLAN Overall clinically she is euvolemic with no rales on exam and no lower extremity edema. Transition to PO diuretics, lasix 40 mg PO BID. Repeat chest xray. Follow up with Dr. Parada upon discharge. Nurse Practitioner note has been reviewed, I agree with a documented findings and plan of care. Patient was seen and examined. Objective - Vital Signs Vital signs: Vital Signs Temp 97.5 F L 10/24/18 07:11 Pulse 100 10/24/18 08:57 Resp 18 10/24/18 07:11 BP 103/67 10/24/18 08:36 Pulse Ox 95 10/24/18 07:11 Intake & Output 10/23/18 10/24/18 10/24/18 18:59 06:59 18:59 Intake Total 540 Balance 540 Weight 82.554 kg Intake: Oral 540 Other: Voiding Method Toilet # Voids 3 # Bowel Movements 1 - Labs CBC & Chem 7: 10/24/18 07:37 10/24/18 07:37 Labs: Abnormal Lab Results - Last 24 Hours (Table) 10/23/18 10/23/18 10/23/18 Range/Units 03:12 11:41 14:02 WBC (3.8-10.6) k/uL RBC (3.80-5.40) m/uL Hgb (11.4-16.0) gm/dL Hct (34.0-46.0) % MCV (80.0-100.0) fL RDW (11.5-15.5) % Neutrophils # (1.3-7.7) k/uL Lymphocytes # (1.0-4.8) k/uL Carbon Dioxide (22-30) mmol/L BUN (7-17) mg/dL Creatinine (0.52-1.04) mg/dL Glucose (74-99) mg/dL POC Glucose (mg/dL) 127 H 209 H (75-99) mg/dL Iron 38 L (50-170) ug/dL AST (14-36) U/L ALT (9-52) U/L Total Protein (6.3-8.2) g/dL 10/23/18 10/24/18 10/24/18 Range/Units 17:05 07:37 07:37 WBC 14.9 H (3.8-10.6) k/uL RBC 3.14 L (3.80-5.40) m/uL Hgb 10.1 L (11.4-16.0) gm/dL Hct 32.2 L (34.0-46.0) % MCV 102.6 H (80.0-100.0) fL RDW 18.0 H (11.5-15.5) % Neutrophils # 13.4 H (1.3-7.7) k/uL Lymphocytes # 0.8 L (1.0-4.8) k/uL Carbon Dioxide 33 H (22-30) mmol/L BUN 50 H (7-17) mg/dL Creatinine 1.51 H (0.52-1.04) mg/dL Glucose 102 H (74-99) mg/dL POC Glucose (mg/dL) 154 H (75-99) mg/dL Iron (50-170) ug/dL AST 89 H (14-36) U/L ALT 65 H (9-52) U/L Total Protein 6.2 L (6.3-8.2) g/dL Microbiology - Last 24 Hours (Table) 10/22/18 16:08 Urine Culture - Final Urine,Voided
--- NOTE | 2018-10-24 11:28 | P.PN ---
Subjective Progress Note Date: 10/24/18 This is an 83-year-old female patient of Dr. Kuhn. Patient reports that on Tuesday she was getting ready for latter day, she became increasingly short of breath and had to sit down. Patient reports that she called for assistance and EMS was called. Patient denies any cough or chest pain with initial shortness of breath episode. Patient denies any recent illness or fevers. Patient does have a past medical history of COPD and chronic respiratory failure maintained on 2 L home O2, congestive heart failure, A. fib not on annticoagulation due to frequent falls, GERD, hyperlipidemia, myocardial infarction, osteoarthritis, pneumonia, renal disease, coronary artery bypass graft surgery in 1983, previous heart cath with stents, anxiety and depression. Chest x-ray completing showing findings consistent consistent with congestive heart failure. BNP elevated at 4570. Initial troponin 0.039, 0.022 and 0.029. EKG showing atrial fibrillation. Patient started on IV Lasix 40 mg every 8 hours, Solu-Medrol 60 mg every 6 hours. Pulmonary cardiology consult placed. At this time patient is resting comfortably in chair. Patient is complaining of left knee pain from a previous fall. Acetaminophen ordered. Patient currently on 2 L in which she wears at home. Patient reports some improvement with her shortness of breath since arrival. Patient denies chest pain at this time per nursing staff patient did have an occurrence with ambulation of chest pain. Cardiology was notified per nursing staff. Patient also hypotensive upon arrival antihypertensive meds currently held. Awaiting cardiology input. Patient denies nausea vomiting or diarrhea. Patient denies any urinary burning or frequency. On 10/24/2017 patient is alert and oriented 3 chair. Solu-Medrol DC'd per pulmonary. Per cardiology plan to transition to by mouth Lasix today. This time patient is talking some shortness of breath. Patient denies chest pain. Patient denies nausea vomiting or diarrhea. Patient denies any urinary burning or frequency. Objective - Vital Signs Vital signs: Vital Signs Temp 97.5 F L 10/24/18 07:11 Pulse 100 10/24/18 08:57 Resp 18 10/24/18 07:11 BP 103/67 10/24/18 08:36 Pulse Ox 95 10/24/18 07:11 Intake & Output 10/23/18 10/24/18 10/24/18 18:59 06:59 18:59 Intake Total 540 Balance 540 Weight 82.554 kg Intake: Oral 540 Other: Voiding Method Toilet # Voids 3 # Bowel Movements 1 - Exam Head normocephalic Neck supple Lungs diminished bilaterally with expiratory wheezing Heart regular rate and rhythm S1-S2, no rub or gallop Abdomen is soft nontender nondistended positive bowel sounds no hepatosplenomegaly Extremities no edema Neuro alert and orientated to 3 - Labs CBC & Chem 7: 10/24/18 07:37 10/24/18 07:37 Labs: Abnormal Lab Results - Last 24 Hours (Table) 10/23/18 10/23/18 10/23/18 Range/Units 03:12 11:41 14:02 WBC (3.8-10.6) k/uL RBC (3.80-5.40) m/uL Hgb (11.4-16.0) gm/dL Hct (34.0-46.0) % MCV (80.0-100.0) fL RDW (11.5-15.5) % Neutrophils # (1.3-7.7) k/uL Lymphocytes # (1.0-4.8) k/uL Carbon Dioxide (22-30) mmol/L BUN (7-17) mg/dL Creatinine (0.52-1.04) mg/dL Glucose (74-99) mg/dL POC Glucose (mg/dL) 127 H 209 H (75-99) mg/dL Iron 38 L (50-170) ug/dL AST (14-36) U/L ALT (9-52) U/L Total Protein (6.3-8.2) g/dL 10/23/18 10/24/18 10/24/18 Range/Units 17:05 07:37 07:37 WBC 14.9 H (3.8-10.6) k/uL RBC 3.14 L (3.80-5.40) m/uL Hgb 10.1 L (11.4-16.0) gm/dL Hct 32.2 L (34.0-46.0) % MCV 102.6 H (80.0-100.0) fL RDW 18.0 H (11.5-15.5) % Neutrophils # 13.4 H (1.3-7.7) k/uL Lymphocytes # 0.8 L (1.0-4.8) k/uL Carbon Dioxide 33 H (22-30) mmol/L BUN 50 H (7-17) mg/dL Creatinine 1.51 H (0.52-1.04) mg/dL Glucose 102 H (74-99) mg/dL POC Glucose (mg/dL) 154 H (75-99) mg/dL Iron (50-170) ug/dL AST 89 H (14-36) U/L ALT 65 H (9-52) U/L Total Protein 6.2 L (6.3-8.2) g/dL Microbiology - Last 24 Hours (Table) 10/22/18 16:08 Urine Culture - Final Urine,Voided Assessment and Plan Assessment: 1. Acute on chronic diastolic congestive heart failure. BNP elevated at 4570. Chest x-ray completed in correlation for congestive heart failure. Per cardiology patient has been transitioned to oral Lasix at this time. Repeat two-view chest x-ray ordered 2. COPD exacerbation. Patient started on Solu-Medrol pulmonary services have been consulted. Solu-Medrol discontinued for pulmonary 3. Hypotension. Patient's Lopressor currently on hold awaiting cardiology input. Lopressor has been resumed. issue resolved 4. Chronic A. fib controlled heart rate. Patient not on anticoagulation due to high risk of bleeding in the past with falls. This was discussed during previous admission with patient and cardiology services. 5. History of frequent falls 6. History of coronary artery disease with history of CABG and cardiac stents 7. Acute on chronic kidney disease stage III. Creatinine 1.26 and bun 36, this does appear baseline for patient. Creatinine increasing to 1.51 and bun 50. Patient has been transitioned to oral Lasix will continue to monitor 8. Hypothyroidism. Maintained on Synthroid 9. Iron deficiency Anemia. Hemoglobin improving to 10.1. Patient will be started on ferrous sulfate DVT prophylaxis heparin. GI prophylaxis Protonix Urine culture pending I performed an examination of the patient and discussed their management with the Nurse Practitioner. I have reviewed the Nurse Practitioner's notes and agree with the documented findings and plan of care
--- NOTE | 2018-10-24 11:32 | P.PN ---
Subjective Progress Note Date: 10/24/18 Principal diagnosis: Acute exacerbation of diastolic congestive heart failure along with suspected exacerbation of COPD The patient is seen today 10/24/2018 in follow-up on the regular medical floor. She is currently sitting up at the bedside. Awake and alert in no acute distr ess. Maintaining O2 saturations in the mid 90s on 3 L/m per nasal cannula. She's afebrile. Hemodynamically stable. White count 14.9. Hemoglobin 10.1. Creatinine 1.51. AST 89. ALT 65. She remains on DuoNeb inhalations, Symbicort, Singulair. Remains on oral diuretics. Objective - Vital Signs Vital signs: Vital Signs Temp 97.5 F L 10/24/18 07:11 Pulse 100 10/24/18 08:57 Resp 18 10/24/18 07:11 BP 103/67 10/24/18 08:36 Pulse Ox 95 10/24/18 07:11 Intake & Output 10/23/18 10/24/18 10/24/18 18:59 06:59 18:59 Intake Total 540 Balance 540 Weight 82.554 kg Intake: Oral 540 Other: Voiding Method Toilet # Voids 3 # Bowel Movements 1 - Exam GENERAL EXAM: Alert, active, comfortable in no apparent distress. On 3 L nasal cannula. HEAD: Normocephalic. EYES: Normal reaction of pupils, equal size. NOSE: Clear with pink turbinates. THROAT: No erythema or exudates. NECK: No masses, no JVD. CHEST: No chest wall deformity. LUNGS: Equal air entry with faint crackles in the posterior bases, diminished CVS: S1 and S2 normal with no audible murmur, regular rhythm. ABDOMEN: No hepatosplenomegaly, normal bowel sounds, no guarding or rigidity. SPINE: No scoliosis or deformity SKIN: No rashes CENTRAL NERVOUS SYSTEM: No focal deficits, tone is normal in all 4 extremities. EXTREMITIES: There is trace peripheral edema. No clubbing, no cyanosis. Peripheral pulses are intact. - Labs CBC & Chem 7: 10/24/18 07:37 10/24/18 07:37 Labs: Abnormal Lab Results - Last 24 Hours (Table) 10/23/18 10/23/18 10/23/18 Range/Units 03:12 11:41 14:02 WBC (3.8-10.6) k/uL RBC (3.80-5.40) m/uL Hgb (11.4-16.0) gm/dL Hct (34.0-46.0) % MCV (80.0-100.0) fL RDW (11.5-15.5) % Neutrophils # (1.3-7.7) k/uL Lymphocytes # (1.0-4.8) k/uL Carbon Dioxide (22-30) mmol/L BUN (7-17) mg/dL Creatinine (0.52-1.04) mg/dL Glucose (74-99) mg/dL POC Glucose (mg/dL) 127 H 209 H (75-99) mg/dL Iron 38 L (50-170) ug/dL AST (14-36) U/L ALT (9-52) U/L Total Protein (6.3-8.2) g/dL 10/23/18 10/24/18 10/24/18 Range/Units 17:05 07:37 07:37 WBC 14.9 H (3.8-10.6) k/uL RBC 3.14 L (3.80-5.40) m/uL Hgb 10.1 L (11.4-16.0) gm/dL Hct 32.2 L (34.0-46.0) % MCV 102.6 H (80.0-100.0) fL RDW 18.0 H (11.5-15.5) % Neutrophils # 13.4 H (1.3-7.7) k/uL Lymphocytes # 0.8 L (1.0-4.8) k/uL Carbon Dioxide 33 H (22-30) mmol/L BUN 50 H (7-17) mg/dL Creatinine 1.51 H (0.52-1.04) mg/dL Glucose 102 H (74-99) mg/dL POC Glucose (mg/dL) 154 H (75-99) mg/dL Iron (50-170) ug/dL AST 89 H (14-36) U/L ALT 65 H (9-52) U/L Total Protein 6.2 L (6.3-8.2) g/dL Microbiology - Last 24 Hours (Table) 10/22/18 16:08 Urine Culture - Final Urine,Voided Assessment and Plan Assessment: Impression: #1 Acute hypoxic respiratory failure secondary to an acute exacerbation of diastolic congestive heart failure. #2 Acute hypoxic respiratory failure secondary to an acute exacerbation of suspected chronic obstructive pulmonary disease. #3 Chronic atrial fibrillation. #4 Coronary artery disease status post coronary artery bypass grafting. #5 Gastroesophageal reflux disease. #6 Hyperlipidemia. #7 Degenerative joint disease. #8 Chronic kidney disease. #9 remote history of chronic tobacco dependence. #10 Sciatic neuralgia. Plan: The patient was seen and evaluated by Dr. Ogden. She is improved today as compared to yesterday. Not quite back to her baseline. We'll continue the [facility] ent treatment plan. Increase her activity as tolerated. Probable discharge in the a.m. She would benefit from a follow-up in our office and further workup including full pulmonary function testing to evaluate the severity of her suspected COPD. Continue DuoNeb inhalations and Symbicort for now. We'll continue to follow. I, the cosigning physician, performed a history & physical examination of the patient. Lungs sounds with crackles in the posterior bases, diminished. Jessica zeeining good O2 saturations in the 90s on 3 L/m per nasal cannula. I discussed the assessment and plan of care with my nurse practitioner, Saniya Branch. I attest to the above note as dictated by her.
--- NOTE | 2018-10-24 16:38 | XR ---
EXAMINATION: XR chest 2V DATE AND TIME: 10/24/2018 4:14 PM CLINICAL INDICATION: PHH; sob TECHNIQUE: Departmental protocol COMPARISON: 2018 11:03 AM FINDINGS: The previously seen advanced interstitial phase pulmonary edema pattern, presumably cardiogenic etiol ogy, is unchanged. The markedly elevated right hemidiaphragm is also unchanged. Sternal sutures and moderate enlargement of the cardiac silhouette redemonstrated. There is no pneumothorax or other abnormal gas collection. IMPRESSION: Stable radiographic abnormalities; no new process.
[2018-10-24] MEDS: ACETAMINOPHEN TAB 325 MG TAB PO PRN (19:22)
[2018-10-24 20:11] VITALS: RESP 16
[2018-10-24 20:48] LABS: Glucose,Whole Blood 96 mg/dL (75-99)
[2018-10-24] MEDS: MONTELUKAST 10 MG TAB PO SCH (20:54)
[2018-10-24] MEDS: FERROUS SULFATE 325 MG TAB PO SCH (20:55)
[2018-10-25] MEDS: SODIUM CHLORIDE 0.9% 1,000 ML IV SCH (00:31)
[2018-10-25] MEDS: LEVOTHYROXINE 125 MCG TAB PO SCH (04:59)
[2018-10-25 07:15] LABS: Glucose,Whole Blood 90 mg/dL (75-99)
[2018-10-25 08:05] LABS: Anisocytosis Slight; Basophils % (A) 0 %; Eosinophils # (A) 0.1 k/uL (0-0.7); Eosinophils % (A) 1 %; HCT 32.6 % (34.0-46.0); HGB 10.2 gm/dL (11.4-16.0); Hypochromasia Moderate; Lymphocytes # (A) 1.5 k/uL (1.0-4.8); Lymphocytes % (A) 18 %; MCH 31.8 pg (25.0-35.0); MCHC 31.1 g/dL (31.0-37.0); MCV 102.3 fL (80.0-100.0); Macrocytosis Moderate; Mean Platelet Volume 7.4; Monocytes # (A) 0.5 k/uL (0-1.0); Monocytes % (A) 6 %; Neutrophils % (A) 74 %; Platelet Count 266 k/uL (150-450); RBC 3.19 m/uL (3.80-5.40); RDW 17.9 % (11.5-15.5); WBC 8.1 k/uL (3.8-10.6)
[2018-10-25 08:17] LABS: Albumin 3.7 g/dL (3.5-5.0); Calcium 9.5 mg/dL (8.4-10.2); Potassium 4.1 mmol/L (3.5-5.1); Total Bilirubin 0.5 mg/dL (0.2-1.3); Total Protein 6.1 g/dL (6.3-8.2)
[2018-10-25] MEDS: SYMBICORT 160-4.5 MCG INHALER INHALATION SCH (09:45)
[2018-10-25] MEDS: IPRATROPIUM-ALBUTEROL 3 ML NEB INHALATION SCH ×2 (09:45→12:52)
[2018-10-25] MEDS: FERROUS SULFATE 325 MG TAB PO SCH (11:17)
[2018-10-25] MEDS: CHOLECALCIFEROL 1,000 UNIT TAB PO SCH (11:17)
[2018-10-25] MEDS: PANTOPRAZOLE 40 MG TABLET PO SCH (11:17)
[2018-10-25] MEDS: ASPIRIN 81 MG PO SCH (11:17)
[2018-10-25] MEDS: ISOSORBIDE MONONITRATE ER 30 MG TAB.ER.24H PO SCH (11:17)
[2018-10-25] MEDS: FUROSEMIDE 40 MG TAB PO SCH (11:17)
[2018-10-25] MEDS: CYANOCOBALAMIN 500 MCG TAB PO SCH (11:17)
[2018-10-25] MEDS: METOPROLOL TARTRATE 50 MG TAB PO SCH (11:17)
[2018-10-25] MEDS: ALLOPURINOL 300 MG TAB PO SCH (11:18)
[2018-10-25] MEDS: HEPARIN SODIUM,PORCINE 5,000 UNIT/ML 1 ML VIAL SQ SCH (11:18)
[2018-10-25] MEDS: ESCITALOPRAM 10 MG TAB PO SCH (11:18)
[2018-10-25 11:50] LABS: Glucose,Whole Blood 85 mg/dL (75-99)
--- NOTE | 2018-10-25 12:15 | P.PN ---
Subjective Progress Note Date: 10/25/18 Principal diagnosis: Acute exacerbation of diastolic congestive heart failure and suspect exacerbation of COPD The patient is seen today 10/24/2018 in follow-up on the regular medical floor. She is currently sitting up at the bedside. Awake and alert in no acute distress. Maintaining O2 saturations in the mid 90s on 3 L/m per nasal cannula. She's afebrile. Hemodynamically stable. White count 14.9. Hemoglobin 10.1. Creatinine 1.51. AST 89. ALT 65. She remains on DuoNeb inhalations, Symbicort, Singulair. Remains on oral diuretics. On 10/25/2018 patient seen in follow-up on medical surgical floor. Awake and alert, in no acute distress, remains on supplemental oxygen at 3 L per nasal cannula with pulse ox of 93%, afebrile, hemodynamically stable, respirations are even and nonlabored, patient is diuresing, maintaining negative fluid balance, and there is significant improvement in terms of lower extremity edema. Today's labs have been reviewed, showing reversal, 8.1, hemoglobin is 10.2, serum sodium 139, potassium is 4.1, chloride is 101, CO2 is 32, BUN of 56, creatinine is 1.53. IV diuretics 7 transition to oral Lasix, 40 mg twice daily, continues on nebulized bronchodilators, Symbicort, and Singulair. No new chest x-rays today. Objective - Vital Signs Vital signs: Vital Signs Temp 97.5 F L 10/25/18 07:27 Pulse 84 10/25/18 09:58 Resp 16 10/25/18 07:27 BP 121/74 10/25/18 07:27 Pulse Ox 93 L 10/25/18 07:27 Intake & Output 10/24/18 10/25/18 10/25/18 18:59 06:59 18:59 Intake Total 240 Balance 240 Intake: Oral 240 Other: Voiding Method Toilet # Bowel Movements 1 - Exam GENERAL EXAM: Alert, active, comfortable in no apparent distress. HEAD: Normocephalic/atraumatic. EYES: Normal reaction of pupils, equal size. Conjunctiva pink, sclera white. NOSE: Clear with pink turbinates. THROAT: No erythema or exudates. NECK: No masses, no JVD, no thyroid enlargement, no adenopathy. CHEST: No chest wall deformity. Symmetrical expansion. LUNGS: Equal air entry with diminished breath sounds with expiratory wheezing CVS: Regular rate and rhythm, normal S1 and S2, no gallops, no murmurs, no rubs ABDOMEN: Soft, nontender. No hepatosplenomegaly, normal bowel sounds, no guarding or rigidity. EXTREMITIES: No clubbing, no edema, no cyanosis, 2+ pulses and upper and lower extremities. MUSCULOSKELETAL: Muscle strength and tone normal. SPINE: No scoliosis or deformity SKIN: No rashes CENTRAL NERVOUS SYSTEM: Alert and oriented -3. No focal deficits, tone is normal in all 4 extremities. PSYCHIATRIC: Alert and oriented -3. Appropriate affect. Intact judgment and insight. - Labs CBC & Chem 7: 10/25/18 07:34 10/25/18 07:34 Labs: Abnormal Lab Results - Last 24 Hours (Table) 10/25/18 10/25/18 Range/Units 07:34 07:34 RBC 3.19 L (3.80-5.40) m/uL Hgb 10.2 L (11.4-16.0) gm/dL Hct 32.6 L (34.0-46.0) % MCV 102.3 H (80.0-100.0) fL RDW 17.9 H (11.5-15.5) % Carbon Dioxide 32 H (22-30) mmol/L BUN 56 H (7-17) mg/dL Creatinine 1.53 H (0.52-1.04) mg/dL AST 49 H (14-36) U/L ALT 58 H (9-52) U/L Total Protein 6.1 L (6.3-8.2) g/dL Assessment and Plan Plan: Assessment: #1 Acute hypoxic respiratory failure secondary to an acute exacerbation of diastolic congestive heart failure. #2 Acute hypoxic respiratory failure secondary to an acute exacerbation of suspected chronic obstructive pulmonary disease. #3 Chronic atrial fibrillation. #4 Coronary artery disease status post coronary artery bypass grafting. #5 Gastroesophageal reflux disease. #6 Hyperlipidemia. #7 Degenerative joint disease. #8 Chronic kidney disease. #9 remote history of chronic tobacco dependence. #10 Sciatic neuralgia. Plan: Continue current medical treatment, patient has extensively diuresed, breathing easier, there is significant improvement in the lower extremity edema, her IV Lasix has been transitioned to oral, continue nebulized bronchodilators, a pulmonary perspective patient is stable for discharge home today once cleared by cardiology. I performed a history & physical examination of the patient and discussed their management with my nurse practitioner, Funmilayo Dee. I reviewed the nurse practitioner's note and agree with the documented findings and plan of care. Lung sounds are positive for diminished, with some expiratory wheezes. The findings and the impression was discussed with the patient. I attest to the documentation by the nurse practitioner. Time with Patient: Less than 30
--- NOTE | 2018-10-25 14:57 | P.DS ---
Providers Date of admission: 10/22/18 12:20 Expected date of discharge: 10/25/18 Attending physician: Susan Virk Consults: 10/22/18 18:15 Consult Physician Routine Consulting Provider: [facility] Consult Reason/Comments: CHF/HYPOTENSION/CHRONIC AFIB Do you want consulting provider notified?: Yes Consult Physician Routine Consulting Provider: Maureen Jauregui Consult Reason/Comments: SHORTNESS OF BREATH Do you want consulting provider notified?: Yes Primary care physician: Tiera Kuhn Hospital Course: Discharge Diagnosis 1. Acute on chronic diastolic congestive heart failure. BNP elevated at 4570. Chest x-ray completed in correlation for congestive heart failure. Per cardiology patient has been transitioned to oral Lasix at this time. Repeat chest x-ray completed showing stable radiographic abnormalities. No new process. Patient has been cleared for discharge from pulmonary and cardiology services. DC patient on increased dose of Lopressor 100 twice a day and Lasix 40 twice a day. 2. COPD exacerbation. Patient started on Solu-Medrol pulmonary services have been consulted. Solu-Medrol discontinued for pulmonary 3. Hypotension. Patient's Lopressor currently on hold awaiting cardiology input. Lopressor has been resumed. issue resolved 4. Chronic A. fib controlled heart rate. Patient not on anticoagulation due to high risk of bleeding in the past with falls. This was discussed during previous admission with patient and cardiology services. 5. History of frequent falls 6. History of coronary artery disease with history of CABG and cardiac stents 7. Acute on chronic kidney disease stage III. Creatinine 1.26 and bun 36, this does appear baseline for patient. Creatinine increasing to 1.51 and bun 50. Patient has been transitioned to oral Lasix will continue to monitor. Repeat CMP ordered for 2 days 8. Hypothyroidism. Maintained on Synthroid 9. Iron deficiency Anemia. Hemoglobin improving to 10.1. Patient will be started on ferrous sulfate Hospital course This is an 83-year-old female patient of Dr. Kuhn. Patient reports that on Tuesday she was getting ready for [employer], she became increasingly short of breath and had to sit down. Patient reports that she called for assistance and EMS was called. Patient denies any cough or chest pain with initial shortness of breath episode. Patient denies any recent illness or fevers. Patient does have a past medical history of COPD and chronic respiratory failure maintained on 2 L home O2, congestive heart failure, A. fib not on annticoagulation due to frequent falls, GERD, hyperlipidemia, myocardial infarction, osteoarthritis, pneumonia, renal disease, coronary artery bypass graft surgery in 1983, previous heart cath with stents, anxiety and depression. Chest x-ray completing showing findings consistent consistent with congestive heart failure. BNP elevated at 4570. Initial troponin 0.039, 0.022 and 0.029. EKG showing atrial fibrillation. Patient started on IV Lasix 40 mg every 8 hours, Solu-Medrol 60 mg every 6 hours. Pulmonary cardiology consult placed. At this time patient is resting comfortably in chair. Patient is complaining of left knee pain from a previous fall. Acetaminophen ordered. Patient currently on 2 L in which she wears at home. Patient reports some improvement with her shortness of breath since arrival. Patient denies chest pain at this time per nursing staff patient did have an occurrence with ambulation of chest pain. Cardiology was notified per nursing staff. Patient also hypotensive upon arrival antihypertensive meds currently held. Awaiting cardiology input. Patient denies nausea vomiting or diarrhea. Patient denies any urinary burning or frequency. On 10/24/2017 patient is alert and oriented 3 chair. Solu-Medrol DC'd per pulmonary. Per cardiology plan to transition to by mouth Lasix today. This time patient is talking some shortness of breath. Patient denies chest pain. P atient denies nausea vomiting or diarrhea. Patient denies any urinary burning or frequency. On 10/25/2018 patient is alert and oriented 3. Patient has been cleared for discharge from cardiology and pulmonary services. Patient will be DC'd home on by mouth Lasix 40 mg twice a day increased dose of Lopressor per cardiology recommendation. At this time patient has returned to baseline. Patient denies any chest pain or shortness breath. Patient denies nausea vomiting or diarrhea. Patient denies any urinary burning or frequency I performed an examination of the patient and discussed their management with the Nurse Practitioner. I have reviewed the Nurse Practitioner's notes and agree with the documented findings and plan of care Patient Condition at Discharge: Stable Plan - Discharge Summary Discharge Rx Participant: No New Discharge Prescriptions: New Ferrous Sulfate [Iron (65 MG Elemental)] 325 mg PO BID 30 Days #60 tab Furosemide [Lasix] 40 mg PO BID@0900,1600 30 Days #60 tab Metoprolol Tartrate [Lopressor] 100 mg PO BID 30 Days #60 tab Continue Cyanocobalamin [Vitamin B-12] 500 mcg PO DAILY Aspirin [Adult Low Dose Aspirin EC] 81 mg PO BID Albuterol Nebulized [Ventolin Nebulized] 2.5 mg INHALATION RT-Q4H PRN PRN Reason: Cough Allopurinol [Zyloprim] 300 mg PO DAILY ALPRAZolam [Xanax] 0.25 mg PO Q6H PRN PRN Reason: Anxiety Cholecalciferol [Vitamin D3 (25 Mcg = 1000 Iu)] 1,000 unit PO DAILY Escitalopram [Lexapro] 10 mg PO DAILY Nitroglycerin Sl Tabs [Nitrostat] 0.4 mg SUBLINGUAL Q5M PRN PRN Reason: Chest Pain Montelukast [Singulair] 10 mg PO HS #30 tab Levothyroxine Sodium [Synthroid] 125 mcg PO DAILY@0630 30 Days #30 tab Isosorbide Mononitrate [Isosorbide Mononitrate ER] 30 mg PO DAILY Metolazone [Zaroxolyn] 2.5 mg PO WEEKLY Budesonide 0.05 mg INHALATION QID Formoterol Fumarate [Perforomist] 2 ml INHALATION BID Discontinued Metoprolol Tartrate [Lopressor] 75 mg PO BID Furosemide [Lasix] 40 mg PO DAILY 30 Days #30 tab Discharge Medication List Cyanocobalamin [Vitamin B-12] 500 mcg PO DAILY 10/03/13 [History] Aspirin [Adult Low Dose Aspirin EC] 81 mg PO BID 01/10/16 [History] ALPRAZolam [Xanax] 0.25 mg PO Q6H PRN 07/20/18 [History] Albuterol Nebulized [Ventolin Nebulized] 2.5 mg INHALATION RT-Q4H PRN 07/20/18 [History] Allopurinol [Zyloprim] 300 mg PO DAILY 07/20/18 [History] Cholecalciferol [Vitamin D3 (25 Mcg = 1000 Iu)] 1,000 unit PO DAILY 07/20/18 [History] Escitalopram [Lexapro] 10 mg PO DAILY 07/20/18 [History] Nitroglycerin Sl Tabs [Nitrostat] 0.4 mg SUBLINGUAL Q5M PRN 07/20/18 [History] Montelukast [Singulair] 10 mg PO HS #30 tab 09/18/18 [Rx] Levothyroxine Sodium [Synthroid] 125 mcg PO DAILY@0630 30 Days #30 tab 10/06/18 [Rx] Budesonide 0.05 mg INHALATION QID 10/22/18 [History] Formoterol Fumarate [Perforomist] 2 ml INHALATION BID 10/22/18 [History] Isosorbide Mononitrate [Isosorbide Mononitrate ER] 30 mg PO DAILY 10/22/18 [History] Metolazone [Zaroxolyn] 2.5 mg PO WEEKLY 10/22/18 [History] Ferrous Sulfate [Iron (65 MG Elemental)] 325 mg PO BID 30 Days #60 tab 10/25/18 [Rx] Furosemide [Lasix] 40 mg PO BID@0900,1600 30 Days #60 tab 10/25/18 [Rx] Metoprolol Tartrate [Lopressor] 100 mg PO BID 30 Days #60 tab 10/25/18 [Rx] Follow up Appointment(s)/Referral(s): Rashawn Parada MD [Family Provider] - 2 Weeks Tiera Kuhn MD [Primary Care Provider] - 1-2 days Colin Ogden DO [Doctor of Osteopathic Medicine] - 1 Week [facility], [NON-STAFF] - Ambulatory/Diagnostic Orders: Comprehensive Metabolic Panel [LAB.AMB] Time Frame: 2 Days, Location: None Selected Activity/Diet/Wound Care/Special Instructions: Activity as tolerated Diet heart healthy
[2018-10-25 15:10] VITALS: PULSE 77; TEMP 98.1
[2018-10-25 15:30] VITALS: BP 112/75
== END 2018-10-25 16:22 | disposition home health service (06) | DRG 291 ==
LOC: EC 09:40 → 4SSUR 12:20
PROVIDERS: ADMIT Internal Medicine; ATTEND Internal Medicine
DX: I13.0 Hypertensive heart and chronic kidney disease with heart failure and stage 1 through stage 4 chronic kidney disease, or unspecified chronic kidney disease (principal); I50.33 Acute on chronic diastolic (congestive) heart failure; J96.21 Acute and chronic respiratory failure with hypoxia; J44.1 Chronic obstructive pulmonary disease with (acute) exacerbation; J98.11 Atelectasis; N17.9 Acute kidney failure, unspecified; I42.9 Cardiomyopathy, unspecified; I95.9 Hypotension, unspecified; I27.20 Pulmonary hypertension, unspecified; G62.9 Polyneuropathy, unspecified; I65.23 Occlusion and stenosis of bilateral carotid arteries; I36.1 Nonrheumatic tricuspid (valve) insufficiency; I48.2 Chronic atrial fibrillation; N18.3 Chronic kidney disease, stage 3 (moderate); I34.0 Nonrheumatic mitral (valve) insufficiency; I35.1 Nonrheumatic aortic (valve) insufficiency; D72.829 Elevated white blood cell count, unspecified; D50.9 Iron deficiency anemia, unspecified; E03.9 Hypothyroidism, unspecified; E78.5 Hyperlipidemia, unspecified; F32.9 Major depressive disorder, single episode, unspecified; F41.9 Anxiety disorder, unspecified; I25.119 Atherosclerotic heart disease of native coronary artery with unspecified angina pectoris; I25.2 Old myocardial infarction; K21.9 Gastro-esophageal reflux disease without esophagitis; M19.90 Unspecified osteoarthritis, unspecified site; G89.29 Other chronic pain; M10.9 Gout, unspecified; M54.41 Lumbago with sciatica, right side; M54.42 Lumbago with sciatica, left side; R29.6 Repeated falls; M25.562 Pain in left knee; R77.9 Abnormality of plasma protein, unspecified; Z79.82 Long term (current) use of aspirin; Z79.890 Hormone replacement therapy; Z79.899 Other long term (current) drug therapy; Z88.8 Allergy status to other drugs, medicaments and biological substances; Z87.01 Personal history of pneumonia (recurrent); Z99.81 Dependence on supplemental oxygen; Z95.5 Presence of coronary angioplasty implant and graft; Z95.1 Presence of aortocoronary bypass graft; Z90.710 Acquired absence of both cervix and uterus; Z90.49 Acquired absence of other specified parts of digestive tract; Z86.010 Personal history of colon polyps; Z98.42 Cataract extraction status, left eye; Z98.41 Cataract extraction status, right eye; Z96.1 Presence of intraocular lens; Z87.891 Personal history of nicotine dependence; Z81.1 Family history of alcohol abuse and dependence
CPT/HCPCS: 36415; 71046; 80053; 81001; 82728; 83036; 83540; 83550; 83605; 83735; 83880; 84100; 84484; 85025; 85610; 85730; 87086; 93005; 94640; 96361; 96374; 99291

== ENCOUNTER 2018-11-23 16:53 | Inpatient (IN) | payer MEDICARE, BC ==
--- NOTE | 2018-11-23 17:42 | ED ---
General Adult HPI - General Chief complaint: Shortness of Breath Stated complaint: SOB Time Seen by Provider: 11/23/18 17:11 Source: patient, family, RN notes reviewed, old records reviewed Mode of arrival: wheelchair Limitations: no limitations - History of Present Illness Initial comments: 83-year-old female history of COPD on 3 L of home oxygen, history of heart failure presenting for evaluation of dyspnea. Patient denies cough. She does report orthopnea. She has been using 4 L of home oxygen prior to arrival. No fever. No chest pain. She states she weighs herself regularly and typically weighs 177 pounds, she weighed herself this morning and weight 188 pounds. No recent medication changes. No pain complaints. No vomiting or diarrhea. - Related Data Home Medications Medication Instructions Recorded Confirmed Cyanocobalamin [Vitamin B-12] 500 mcg PO DAILY 10/03/13 11/23/18 Aspirin [Adult Low Dose Aspirin EC] 81 mg PO BID 01/10/16 11/23/18 ALPRAZolam [Xanax] 0.25 mg PO Q6H PRN 07/20/18 11/23/18 Albuterol Nebulized [Ventolin 2.5 mg INHALATION RT-QID PRN 07/20/18 11/23/18 Nebulized] Allopurinol [Zyloprim] 300 mg PO DAILY 07/20/18 11/23/18 Cholecalciferol [Vitamin D3 (25 1,000 unit PO DAILY 07/20/18 11/23/18 Mcg = 1000 Iu)] Escitalopram [Lexapro] 10 mg PO DAILY 07/20/18 11/23/18 Nitroglycerin Sl Tabs [Nitrostat] 0.4 mg SUBLINGUAL Q5M PRN 07/20/18 11/23/18 Formoterol Fumarate [Perforomist] 20 mcg INHALATION RT-BID 10/22/18 11/23/18 Isosorbide Mononitrate [Isosorbide 30 mg PO DAILY 10/22/18 11/23/18 Mononitrate ER] Metolazone [Zaroxolyn] 2.5 mg PO MOWEFR 10/22/18 11/23/18 Budesonide [Pulmicort] 0.5 mg INHALATION RT-BID 11/23/18 11/23/18 Gabapentin [Neurontin] 300 mg PO DAILY 11/23/18 11/23/18 Pravastatin Sodium [Pravachol] 40 mg PO DAILY 11/23/18 11/23/18 Ranitidine HCl [Zantac] 150 mg PO BID 11/23/18 11/23/18 Previous Rx's Medication Instructions Recorded Montelukast [Singulair] 10 mg PO HS #30 tab 09/18/18 Levothyroxine Sodium [Synthroid] 125 mcg PO DAILY@0630 30 Days #30 10/06/18 tab Ferrous Sulfate [Iron (65 MG 325 mg PO BID 30 Days #60 tab 10/25/18 Elemental)] Furosemide [Lasix] 40 mg PO BID@0900,1600 30 Days #60 10/25/18 tab Metoprolol Tartrate [Lopressor] 100 mg PO BID 30 Days #60 tab 10/25/18 Allergies Allergy/AdvReac Type Severity Reaction Status Date / Time Oddnwxb-Fkp-Hcm Reductase Allergy Unknown Verified 11/23/18 17:58 Inhibitor Review of Systems ROS Statement: Those systems with pertinent positive or pertinent negative responses have been documented in the HPI. ROS Other: All systems not noted in ROS Statement are negative. Past Medical History Past Medical History: Atrial Fibrillation, Coronary Artery Disease (CAD), Chest Pain / Angina, Heart Failure, COPD, GERD/Reflux, Hyperlipidemia, Myocardial Infarction ([place]), Osteoarthritis (OA), Pneumonia, Renal Disease Additional Past Medical History / Comment(s): Pt recently admitted to [facility] on 07/21/18 with dyspnea r/t CHF/cardiomyopathy and acute on chronic kidney disease. Other hx: Chronic Afib, neuropathy bilateral feet, gout bilateral feet, falls, occasional low back pain with bilateral sciatica with L side worse, hypothyroid, epistaxis with blood loss anemia, recent memory impairment Last Myocardial Infarction Date:: 2012 History of Any Multi-Drug Resistant Organisms: None Reported Past Surgical History: Appendectomy, Back Surgery, Cardiac Ablation, Cholecystectomy, Coronary Bypass/CABG, Heart Catheterization With Stent, Hysterectomy Additional Past Surgical History / Comment(s): LOW, 1993 CABG-4 vessels, nasal cauterization, colonoscopy with benign polypectomy, D&C, bilateral cataract removals, R breast benign bx, lumbar laminectomy. Past Anesthesia/Blood Transfusion Reactions: Previous Problems w/ Anesthesia Additional Past Anesthesia/Blood Transfusion Reaction / Comment(s): Pt received blood 02/07/12 without reaction after epistaxis. Date of Last Stent Placement:: 03/2013 Past Psychological History: Anxiety, Depression Smoking Status: Former smoker Past Alcohol Use History: Occasional Past Drug Use History: None Reported - Past Family History Mother Additional Family Medical History / Comment(s): Mother was a heavy drinker. She lived to be in her 80's Father Family Medical History: No Reported History Additional Family Medical History / Comment(s): Father lived to be in his 80's General Exam Limitations: no limitations General appearance: alert, in no apparent distress Head exam: Present: atraumatic, normocephalic Eye exam: Present: normal appearance, PERRL ENT exam: Present: normal exam Neck exam: Present: normal inspection. Absent: tenderness, meningismus Respiratory exam: Present: wheezes, rales, decreased breath sounds (Bilateral bases.). Absent: respiratory distress Cardiovascular Exam: Present: regular rate, normal rhythm GI/Abdominal exam: Present: soft. Absent: distended, tenderness Extremities exam: Present: normal inspection, normal capillary refill, pedal edema. Absent: calf tenderness Neurological exam: Present: alert, oriented X3, CN II-XII intact. Absent: motor sensory deficit Psychiatric exam: Present: normal affect, normal mood Skin exam: Present: warm, dry, intact. Absent: cyanosis, diaphoretic Course Vital Signs 11/23/18 11/23/18 11/23/18 17:07 17:10 19:08 Temperature 98.4 F Pulse Rate 72 95 Respiratory 24 20 Rate Blood Pressure 93/50 O2 Sat by Pulse 98 Oximetry EKG Findings - EKG Comments: EKG Findings:: EKG: Atrial fibrillation, rightward axis, incomplete right bundle, no ST segment elevation, ST segment depression in precordial leads, rate of 106, QRS duration 441. Medical Decision Making - Medical Decision Making 83-year-old female with dyspnea, weight gain. X-ray performed, does show mild CHF. She has hemoglobin 9.7 which is stable for this patient. Creatinine is elevated above baseline 2.1 from 1.5. She has an elevated BNP 4290. She's given aspirin, started on Lasix. She does have significantly elevated troponin at is 0.6. She's had troponin elevation the past in the setting of chronic kidney disease, this is difficult to interpret. She's had no chest pain today, no chest pain in the past one week. She is anticoagulated, serial cardiac enzymes will be obtained in the patient will be evaluated by cardiology. Diagnosis: CHF, non-ST segment elevated [place]. - Lab Data Result diagrams: 11/23/18 17:30 11/23/18 17:30 Lab Results 11/23/18 11/23/18 11/23/18 Range/Units 17:30 17:30 17:30 WBC 10.0 (3.8-10.6) k/uL RBC 3.03 L (3.80-5.40) m/uL Hgb 9.7 L (11.4-16.0) gm/dL Hct 30.8 L (34.0-46.0) % MCV 101.8 H (80.0-100.0) fL MCH 32.2 (25.0-35.0) pg MCHC 31.6 (31.0-37.0) g/dL RDW 16.7 H (11.5-15.5) % Plt Count 263 (150-450) k/uL Neutrophils % 75 % Lymphocytes % 16 % Monocytes % 3 % Eosinophils % 4 % Basophils % 1 % Neutrophils # 7.5 (1.3-7.7) k/uL Lymphocytes # 1.6 (1.0-4.8) k/uL Monocytes # 0.3 (0-1.0) k/uL Eosinophils # 0.4 (0-0.7) k/uL Basophils # 0.1 (0-0.2) k/uL Hypochromasia Slight Anisocytosis Slight Macrocytosis Slight PT (9.0-12.0) sec INR (<1.2) APTT (22.0-30.0) sec Sodium 137 (137-145) mmol/L Potassium 4.0 (3.5-5.1) mmol/L Chloride 98 (98-107) mmol/L Carbon Dioxide 32 H (22-30) mmol/L Anion Gap 7 mmol/L BUN 70 H (7-17) mg/dL Creatinine 2.19 H (0.52-1.04) mg/dL Est GFR (CKD-EPI)AfAm 23 (>60 ml/min/1.73 sqM) Est GFR (CKD-EPI)NonAf 20 (>60 ml/min/1.73 sqM) Glucose 97 (74-99) mg/dL Calcium 8.8 (8.4-10.2) mg/dL Total Bilirubin 0.5 (0.2-1.3) mg/dL AST 23 (14-36) U/L ALT 16 (9-52) U/L Alkaline Phosphatase 114 (38-126) U/L Troponin I (0.000-0.034) ng/mL NT-Pro-B Natriuret Pep 4290 pg/mL Total Protein 5.8 L (6.3-8.2) g/dL Albumin 3.5 (3.5-5.0) g/dL 11/23/18 11/23/18 Range/Units 17:30 17:30 WBC (3.8-10.6) k/uL RBC (3.80-5.40) m/uL Hgb (11.4-16.0) gm/dL Hct (34.0-46.0) % MCV (80.0-100.0) fL MCH (25.0-35.0) pg MCHC (31.0-37.0) g/dL RDW (11.5-15.5) % Plt Count (150-450) k/uL Neutrophils % % Lymphocytes % % Monocytes % % Eosinophils % % Basophils % % Neutrophils # (1.3-7.7) k/uL Lymphocytes # (1.0-4.8) k/uL Monocytes # (0-1.0) k/uL Eosinophils # (0-0.7) k/uL Basophils # (0-0.2) k/uL Hypochromasia Anisocytosis Macrocytosis PT 9.6 (9.0-12.0) sec INR 0.9 (<1.2) APTT 24.0 (22.0-30.0) sec Sodium (137-145) mmol/L Potassium (3.5-5.1) mmol/L Chloride (98-107) mmol/L Carbon Dioxide (22-30) mmol/L Anion Gap mmol/L BUN (7-17) mg/dL Creatinine (0.52-1.04) mg/dL Est GFR (CKD-EPI)AfAm (>60 ml/min/1.73 sqM) Est GFR (CKD-EPI)NonAf (>60 ml/min/1.73 sqM) Glucose (74-99) mg/dL Calcium (8.4-10.2) mg/dL Total Bilirubin (0.2-1.3) mg/dL AST (14-36) U/L ALT (9-52) U/L Alkaline Phosphatase (38-126) U/L Troponin I 0.695 H* (0.000-0.034) ng/mL NT-Pro-B Natriuret Pep pg/mL Total Protein (6.3-8.2) g/dL Albumin (3.5-5.0) g/dL Critical Care Time Critical Care Time: Yes Total Critical Care Time: 35 Disposition Clinical Impression: CAD (coronary artery disease), Congestive heart failure, NSTEMI (non-ST elevated myocardial infarction) Disposition: ADMITTED IP TO THIS [facility] Condition: Serious Is patient prescribed a controlled substance at d/c from ED?: No Referrals: Tiera Kuhn MD [Primary Care Provider] - 1-2 days Decision to Admit Reason: Admit from EC Decision Date: 11/23/18 Decision Time: 19:46
[2018-11-23 17:50] LABS: Anisocytosis Slight; Basophils # (A) 0.1 k/uL (0-0.2); Basophils % (A) 1 %; Eosinophils # (A) 0.4 k/uL (0-0.7); Eosinophils % (A) 4 %; HCT 30.8 % (34.0-46.0); HGB 9.7 gm/dL (11.4-16.0); Hypochromasia Slight; Lymphocytes # (A) 1.6 k/uL (1.0-4.8); Lymphocytes % (A) 16 %; MCH 32.2 pg (25.0-35.0); MCHC 31.6 g/dL (31.0-37.0); MCV 101.8 fL (80.0-100.0); Macrocytosis Slight; Mean Platelet Volume 7.5; Monocytes # (A) 0.3 k/uL (0-1.0); Monocytes % (A) 3 %; Neutrophils # (A) 7.5 k/uL (1.3-7.7); Neutrophils % (A) 75 %; Platelet Count 263 k/uL (150-450); RBC 3.03 m/uL (3.80-5.40); RDW 16.7 % (11.5-15.5)
[2018-11-23 17:58] LABS: INR 0.9 (<1.2); Prothrombin Time 9.6 sec (9.0-12.0)
[2018-11-23 18:00] LABS: Albumin 3.5 g/dL (3.5-5.0); Calcium 8.8 mg/dL (8.4-10.2); Total Bilirubin 0.5 mg/dL (0.2-1.3); Total Protein 5.8 g/dL (6.3-8.2)
--- NOTE | 2018-11-23 18:00 | XR ---
EXAMINATION TYPE: XR chest 2V DATE OF EXAM: 11/23/2018 COMPARISON: 10/24/2018 HISTORY: Short of breath TECHNIQUE: Frontal and lateral views of the chest are obtained. FINDINGS: There is coarsening of the lung markings. There is slight elevated right diaphragm. There are sternal wires. There is no definite pleural effusion. There is spurring in the thoracic spine. IMPRESSION: There is chronic elevated right diaphragm unchanged. Pulmonary fibrosis. No change sarmad red to old exam. Mild heart failure is possible.
[2018-11-23] MEDS ORDERED: IPRATROPIUM-ALBUTEROL 3 ML NEB INHALATION STA (18:39)
[2018-11-23] MEDS ORDERED: ALBUTEROL NEBULIZED 2.5 MG/3 ML INHALATION STA (18:39)
[2018-11-23] MEDS ORDERED: FUROSEMIDE 10 MG/ML 4 ML VIAL IV STA (18:39)
[2018-11-23] MEDS ORDERED: ASPIRIN 325 MG TAB PO STA (18:41)
[2018-11-23] MEDS ORDERED: HEPARIN SODIUM,PORCINE 5,000 UNIT/ML 1 ML VIAL IV PRN (18:43)
[2018-11-23] MEDS ORDERED: HEPARIN SODIUM,PORCINE 5,000 UNIT/ML 1 ML VIAL IV ONE (18:43)
[2018-11-23] MEDS ORDERED: NALOXONE 0.4 MG/ML 1 ML VIAL IV PRN (19:41)
[2018-11-23] MEDS: HEPARIN SOD,PORK IN 0.45% NACL 25,000 UNIT in 0.45% NACL 1 250ML.BAG IV SCH (19:58)
[2018-11-23] MEDS: ACETAMINOPHEN TAB 325 MG TAB PO PRN (22:24)
[2018-11-24] MEDS: HYDROcodone/APAP 5-325MG 1 EACH TAB PO PRN ×3 (00:01→20:26)
[2018-11-24] MEDS: ACETAMINOPHEN TAB 325 MG TAB PO PRN (05:17)
[2018-11-24 07:04] LABS: Anisocytosis Slight; Basophils # (A) 0.1 k/uL (0-0.2); Basophils % (A) 1 %; Eosinophils # (A) 0.4 k/uL (0-0.7); Eosinophils % (A) 4 %; HCT 28.9 % (34.0-46.0); HGB 9.2 gm/dL (11.4-16.0); Hypochromasia Moderate; Lymphocytes # (A) 1.8 k/uL (1.0-4.8); Lymphocytes % (A) 19 %; MCH 32.4 pg (25.0-35.0); MCHC 31.7 g/dL (31.0-37.0); MCV 102.2 fL (80.0-100.0); Macrocytosis Moderate; Mean Platelet Volume 7.6; Monocytes # (A) 0.4 k/uL (0-1.0); Monocytes % (A) 4 %; Neutrophils # (A) 6.6 k/uL (1.3-7.7); Neutrophils % (A) 71 %; Platelet Count 209 k/uL (150-450); RBC 2.83 m/uL (3.80-5.40); RDW 17.2 % (11.5-15.5); WBC 9.3 k/uL (3.8-10.6)
[2018-11-24] MEDS ORDERED: FAMOTIDINE 20 MG TAB PO SCH (09:00)
[2018-11-24] MEDS: FUROSEMIDE 10 MG/ML 4 ML VIAL IV SCH ×2 (09:18→20:27)
[2018-11-24] MEDS: PRAVASTATIN SODIUM 40 MG TAB PO SCH (09:19)
[2018-11-24] MEDS: ASPIRIN 81 MG PO SCH ×3 (09:21→20:37)
--- NOTE | 2018-11-24 09:22 | CONS ---
CONSULTATION Mrs. Harman is an 83-year-old female with a history of chronic persistent atrial fibrillation, who has been followed by Dr. Parada on a regular basis, who presented with symptoms of progressive dyspnea and weight gain. She had prior admission for similar findings. She did not have any chest pain. She has not been anticoagulated because of GI bleeding. She has a history of coronary artery disease, prior percutaneous revascularization. She has not noted significant peripheral edema. She has no PND nor clear orthopnea. In the past, her left ventricular systolic function has been normal with no evidence of significant valvular disease. She has underwent coronary artery bypass grafting in 1993 and subsequent percutaneous revascularization. She has no recent cough or wheezing. No history of recent lung infection. Patient according to her has not been anticoagulated because of the atrial fibrillation secondary to recurrent episode of bleeding. Her coronary risk factors are positive for hyperlipidemia, hypertension. She is nondiabetic. MEDICATIONS: Include aspirin, iron, Lasix 40 mg twice a day, isosorbide mononitrate 30 mg daily, levothyroxine, Zaroxolyn 5 times a week, metoprolol tartrate 100 mg twice a day, Singulair, pravastatin 40 mg daily, and Zantac. REVIEW OF SYSTEMS: RESPIRATORY SYSTEM: She had dyspnea on exertion. No recent wheezing. She has some cough. GI SYSTEM: No recent GI bleeding. She had remote bleeding as noted. SYSTEM: No dysuria or hematuria. NERVOUS SYSTEM: No stroke or seizure. PHYSICAL EXAMINATION: She is an 83-year-old female, alert, oriented, and obese. Blood pressure running in the 100s with a heart rate in the 60s. HEAD: Normocephalic. EYES: Sclerae nonicteric. NECK: No bruit. Unable to evaluate jugular venous pressure. LUNGS: Clear to auscultation. HEART: Irregular, regular. S1, S2. No S3 with systolic ejection murmur at the base. No diastolic murmur. No rub. ABDOMEN: Soft, obese, nontender. EXTREMITIES: No edema. LAB DATA: Revealed a hemoglobin of 9.2. Troponin 0.69, 0.51 and 0.32. NT proBNP of 4,290. BUN and creatinine 70 and 2.19. EKG revealed atrial fibrillation with right axis deviation and nonspecific ST-T wave changes. Chest x-ray shows possible mild heart failure. IMPRESSION: 1. Symptoms of progressive dyspnea with possible element of congestive heart failure with preserved systolic function. 2. History of atrial fibrillation and not anticoagulated because of recurrent gastrointestinal bleeding. 3. Mild elevation of troponin, most likely representing a type 2 event. I do not believe that we are dealing with a primary ischemic event. 4. History of coronary artery disease, status post coronary artery bypass grafting. 5. Hypertension. 6. Hyperlipidemia. 7. Obesity. 8. Renal failure. RECOMMENDATION: From the cardiac standpoint, I will continue on the present home medication. She will continue on IV diuretic for 24 hours. Will follow her renal function. If she is stable, I will switch her back to her oral diuretics tomorrow and depending on her progress, further recommendation will be made. Thank you for this consult. Will follow with you. MANOJ / ROSA MARIA: [id number] /
[2018-11-24] MEDS: ISOSORBIDE MONONITRATE ER 30 MG TAB.ER.24H PO SCH (10:23)
[2018-11-24] MEDS: METOPROLOL TARTRATE 50 MG TAB PO SCH ×2 (10:23→20:27)
[2018-11-24 10:41] LABS: Albumin 3.5 g/dL (3.5-5.0); Calcium 9.3 mg/dL (8.4-10.2); Total Bilirubin 0.5 mg/dL (0.2-1.3); Total Protein 5.9 g/dL (6.3-8.2)
[2018-11-24] MEDS ORDERED: ALPRAZolam 0.25 MG TAB PO PRN (11:37)
--- NOTE | 2018-11-24 11:41 | P.HPIM ---
History of Present Illness H&P Date: 11/24/18 This is an 83-year-old female patient of Dr. Kuhn. Patient presented with complaints of increasing shortness of breath and lethargy. Per patient's daughter at bedside patient has had increased oxygen requirements. Patient has a known past medical history of atrial fibrillation in which she is not on anticoagulationd due to falls, coronary artery disease, chest pain, congestive heart failure, GERD, hyperlipidemia, myocardial infarction, osteoarthritis, pneumonia and renal disease. Chest x-ray completed showing chronic elevated right diaphragm unchanged. Pulmonary fibrosis. No change compared to old exam mild heart failure is possible. EKG completed showing atrial fibrillation heart rate 84. Troponins elevated at 0.695, 0.5198 0.322. BNP elevated at 4290. Cardiology services have been consulted. Patient started on heparin drip. Patient also started on IV Lasix per cardiology services. Creatinine also elevated 2.16 which is higher then patient's baseline. At that time patient is resting comfortably in bed. Patient reports no improvement with shortness of breath. Patient denies chest pain. Patient denies nausea vomiting or diarrhea. Patient denies any urinary burning or frequency. Review of Systems Please refer to HPI otherwise unremarkable Past Medical History Past Medical History: Atrial Fibrillation, Coronary Artery Disease (CAD), Chest Pain / Angina, Heart Failure, COPD, GERD/Reflux, Hyperlipidemia, Myocardial Infarction ([place]), Osteoarthritis (OA), Pneumonia, Renal Disease Additional Past Medical History / Comment(s): Pt recently admitted to [facility] on 07/21/18 with dyspnea r/t CHF/cardiomyopathy and acute on chronic kidney disease. Other hx: Chronic Afib, neuropathy bilateral feet, gout bilateral feet, falls, occasional low back pain with bilateral sciatica with L side worse, hypothyroid, epistaxis with blood loss anemia, recent memory impairment Last Myocardial Infarction Date:: 2012 History of Any Multi-Drug Resistant Organisms: None Reported Past Surgical History: Appendectomy, Back Surgery, Cardiac Ablation, Cholecystectomy, Coronary Bypass/CABG, Heart Catheterization With Stent, Hysterectomy Additional Past Surgical History / Comment(s): LOW, 1993 CABG-4 vessels, nasal cauterization, colonoscopy with benign polypectomy, D&C, bilateral cataract removals, R breast benign bx, lumbar laminectomy. Past Anesthesia/Blood Transfusion Reactions: Previous Problems w/ Anesthesia Additional Past Anesthesia/Blood Transfusion Reaction / Comment(s): Pt received blood 02/07/12 without reaction after epistaxis. Date of Last Stent Placement:: 03/2013 Past Psychological History: Anxiety, Depression Additional Psychological History / Comment(s): Pt resides alone. She uses a walker to ambulate. She drives. She has home oxygen and a nebulizer. Smoking Status: Former smoker Past Alcohol Use History: Occasional Additional Past Alcohol Use History / Comment(s): Pt has a glass of wine each evening. She started smoking in 1956 and quit in 1986. Past Drug Use History: None Reported - Past Family History Mother Additional Family Medical History / Comment(s): Mother was a heavy drinker. She lived to be in her 80's Father Family Medical History: No Reported History Additional Family Medical History / Comment(s): Father lived to be in his 80's Medications and Allergies Home Medications Medication Instructions Recorded Confirmed Type Cyanocobalamin [Vitamin B-12] 500 mcg PO DAILY 10/03/13 11/23/18 History Aspirin [Adult Low Dose Aspirin EC] 81 mg PO BID 01/10/16 11/23/18 History ALPRAZolam [Xanax] 0.25 mg PO Q6H PRN 07/20/18 11/23/18 History Albuterol Nebulized [Ventolin 2.5 mg INHALATION RT-QID PRN 07/20/18 11/23/18 History Nebulized] Allopurinol [Zyloprim] 300 mg PO DAILY 07/20/18 11/23/18 History Cholecalciferol [Vitamin D3 (25 1,000 unit PO DAILY 07/20/18 11/23/18 History Mcg = 1000 Iu)] Escitalopram [Lexapro] 10 mg PO DAILY 07/20/18 11/23/18 History Nitroglycerin Sl Tabs [Nitrostat] 0.4 mg SUBLINGUAL Q5M PRN 07/20/18 11/23/18 History Montelukast [Singulair] 10 mg PO HS #30 tab 09/18/18 11/23/18 Rx Levothyroxine Sodium [Synthroid] 125 mcg PO DAILY@0630 30 Days #30 10/06/18 11/23/18 Rx tab Formoterol Fumarate [Perforomist] 20 mcg INHALATION RT-BID 10/22/18 11/23/18 History Isosorbide Mononitrate [Isosorbide 30 mg PO DAILY 10/22/18 11/23/18 History Mononitrate ER] Metolazone [Zaroxolyn] 2.5 mg PO MOWEFR 10/22/18 11/23/18 History Ferrous Sulfate [Iron (65 MG 325 mg PO BID 30 Days #60 tab 10/25/18 11/23/18 Rx Elemental)] Furosemide [Lasix] 40 mg PO BID@0900,1600 30 Days #60 10/25/18 11/23/18 Rx tab Metoprolol Tartrate [Lopressor] 100 mg PO BID 30 Days #60 tab 10/25/18 11/23/18 Rx Budesonide [Pulmicort] 0.5 mg INHALATION RT-BID 11/23/18 11/23/18 History Gabapentin [Neurontin] 300 mg PO DAILY 11/23/18 11/23/18 History Pravastatin Sodium [Pravachol] 40 mg PO DAILY 11/23/18 11/23/18 History Ranitidine HCl [Zantac] 150 mg PO BID 11/23/18 11/23/18 History Allergies Allergy/AdvReac Type Severity Reaction Status Date / Time Gvprodc-Btl-Zlf Reductase Allergy Unknown Verified 11/23/18 17:58 Inhibitor Physical Exam Vitals: Vital Signs Temp Pulse Pulse Resp BP BP Pulse Ox 11/24/18 09:29 98.2 F 47 L 15 87/55 94 L 11/24/18 04:00 97.7 F 65 16 91/58 94 L 11/24/18 00:00 98.0 F 64 19 101/64 98 11/23/18 22:12 97.4 F L 113 H 19 96/50 94 L 11/23/18 21:54 98.0 F 80 18 110/68 97 11/23/18 20:02 98.0 F 89 18 103/87 98 11/23/18 19:08 95 11/23/18 17:10 20 11/23/18 17:07 98.4 F 72 24 93/50 98 Intake and Output 11/23/18 11/24/18 11/24/18 22:59 06:59 14:59 Intake Total 56.667 111.348 Output Total 400 100 100 Balance -400 -43.333 11.348 Intake: Intake, IV Titration 56.667 111.348 Amount Heparin Sod,Pork in 0.45% 56.667 111.348 NaCl 25,000 unit In 0.45 % NaCl 1 250ml.bag @ 11. 727 UNITS/KG/HR 10 mls/hr IV .Q24H [facility] Rx#: [id number] Output: Urine 400 100 100 Other: Voiding Method Toilet Toilet # Voids 1 1 Weight 85.275 kg 84.2 kg Head normocephalic Neck supple Lungs clear to auscultation bilaterally no wheezing or crackles Heart regular rate and rhythm S1-S2, no rub or gallop Abdomen is soft nontender nondistended positive bowel sounds no hepatosplenomegaly Extremities no edema Neuro alert and orientated to 3 Results CBC & Chem 7: 11/24/18 06:49 11/24/18 09:37 Labs: Abnormal Lab Results - Last 24 Hours (Table) 11/23/18 11/23/18 11/23/18 Range/Units 17:30 17:30 17:30 RBC 3.03 L (3.80-5.40) m/uL Hgb 9.7 L (11.4-16.0) gm/dL Hct 30.8 L (34.0-46.0) % MCV 101.8 H (80.0-100.0) fL RDW 16.7 H (11.5-15.5) % APTT (22.0-30.0) sec Chloride (98-107) mmol/L Carbon Dioxide 32 H (22-30) mmol/L BUN 70 H (7-17) mg/dL Creatinine 2.19 H (0.52-1.04) mg/dL Troponin I 0.695 H* (0.000-0.034) ng/mL Total Protein 5.8 L (6.3-8.2) g/dL 11/24/18 11/24/18 11/24/18 Range/Units 00:15 00:15 06:49 RBC 2.83 L (3.80-5.40) m/uL Hgb 9.2 L (11.4-16.0) gm/dL Hct 28.9 L (34.0-46.0) % MCV 102.2 H (80.0-100.0) fL RDW 17.2 H (11.5-15.5) % APTT 31.3 H (22.0-30.0) sec Chloride (98-107) mmol/L Carbon Dioxide (22-30) mmol/L BUN (7-17) mg/dL Creatinine (0.52-1.04) mg/dL Troponin I 0.519 H* (0.000-0.034) ng/mL Total Protein (6.3-8.2) g/dL 11/24/18 11/24/18 11/24/18 Range/Units 06:49 06:49 09:37 RBC (3.80-5.40) m/uL Hgb (11.4-16.0) gm/dL Hct (34.0-46.0) % MCV (80.0-100.0) fL RDW (11.5-15.5) % APTT 79.6 H (22.0-30.0) sec Chloride 95 L (98-107) mmol/L Carbon Dioxide 33 H (22-30) mmol/L BUN 72 H (7-17) mg/dL Creatinine 2.66 H (0.52-1.04) mg/dL Troponin I 0.322 H* (0.000-0.034) ng/mL Total Protein 5.9 L (6.3-8.2) g/dL Thrombosis Risk Factor Assmnt - Choose All That Apply Any of the Below Risk Factors Present?: Yes Each Factor Represents 1 point: Abnormal pulmonary function (COPD), Obesity (BMI >25) Other Risk Factors: Yes Each Risk Factor Represents 3 Points: Age 75 years or older Other congenital or acquired thrombophilia - If yes, enter type in comment: No Thrombosis Risk Factor Assessment Total Risk Factor Score: 5 Thrombosis Risk Factor Assessment Level: High Risk Assessment and Plan Assessment: 1. Dyspnea related to acute on chronic systolic congestive heart failure. Chest x-ray completed showing chronic elevated right diaphragm unchanged. Pulmonary fibrosis. No change compared to old exam mild heart failure is possible. BNP elevated at 4290. Cardiology services have been consulted. Patient started on IV Lasix 2. Mildly elevated troponin most likely representing a type II event per cardiology. currently on heparin drip per cardiology services 3. Acute on chronic kidney disease stage III. Patient's creatinine 2.16 this does appear higher than baseline 4. History of coronary artery disease with coronary artery bypass graft surgery 5. Chronic atrial fibrillation with controlled heart rate. Patient not on anticoagulation due to high risk of bleeding in the past with falls. 6. History of COPD 7. History of frequent falls 8. Increased weakness. Will consult physical therapy 9. Hypothyroidism. Home meds resumed 10. Iron deficiency anemia. Ferrous sulfate resumed DVT prophylaxis heparin drip. GI prophylaxis Pepcid Urinary analysis has been ordered Cardiology consult placed Repeat a.m. labs ordered Time with Patient: Greater than 30 (Greater than 60% of the total time spent in counseling and coordination of care. I performed an examination of the patient and discussed their management with the Nurse Practitioner. I have reviewed the Nurse Practitioner's notes and agree with the documented findings and plan of care)
[2018-11-24 13:39] LABS: Appearance,Urine Cloudy (Clear); Bacteria,Urine Occasional /hpf; Bilirubin,Urine Negative (Negative); Blood,Urine Negative (Negative); Color,Urine Yellow; Glucose,Urine (UA) Negative (Negative); Hyaline Casts,Urine 37 /lpf (0-2); Ketones,Urine Negative (Negative); Leukocyte Esterase,Urine Small (Negative); Mucus,Urine Rare /hpf; Nitrite,Urine Negative (Negative); Protein,Urine Negative (Negative); RBC,Urine 2 /hpf (0-5); Specific Gravity,Urine 1.014 (1.001-1.035); Squamous Epithelial Cell,Urine 9 /hpf (0-4); Urobilinogen,Urine <2.0 mg/dL (<2.0); WBC,Urine 2 /hpf (0-5)
--- NOTE | 2018-11-24 14:29 | US ---
EXAMINATION TYPE: US kidneys/renal and bladder DATE OF EXAM: 11/24/2018 COMPARISON: US CLINICAL HISTORY: DAYA. EXAM MEASUREMENTS: Right Kidney: 8.6 x 4.7 x 1.3 cm Left Kidney: 8.8 x 4.6 x 5.2 cm Limited exam performed portable. Right Kidney: lower pole cyst 1.2 x 1.2 x 1.3 cm Left Kidney: No hydronephrosis or masses seen Bladder: not seen, patient had just voided Bilateral Jets seen: no There is no evidence for hydronephrosis at this point in time. No nephrolithiasis is seen. No solid masses are identified. The urinary bladder is anechoic. Bilateral ureteral jets are seen. IMPRESSION: Right renal cyst. Otherwise unremarkable study.
[2018-11-24] MEDS: ALBUTEROL NEBULIZED 2.5 MG/3 ML INHALATION PRN ×2 (16:25→21:11)
[2018-11-24] MEDS: METOLAZONE 2.5 MG TAB PO SCH (16:32)
[2018-11-24] MEDS: HEPARIN SOD,PORK IN 0.45% NACL 25,000 UNIT in 0.45% NACL 1 250ML.BAG IV SCH (17:55)
[2018-11-24] MEDS: FERROUS SULFATE 325 MG TAB PO SCH (20:27)
[2018-11-24] MEDS: MONTELUKAST 10 MG TAB PO SCH (20:27)
[2018-11-24] MEDS: FORMOTEROL FUMARATE 20 MCG/2 ML NEBU INHALATION SCH (21:11)
[2018-11-24] MEDS: BUDESONIDE 0.5 MG/2 ML NEBU INHALATION SCH (21:11)
[2018-11-25] MEDS: LEVOTHYROXINE 125 MCG TAB PO SCH (06:17)
[2018-11-25 07:21] LABS: Anisocytosis Slight; Basophils # (A) 0.1 k/uL (0-0.2); Basophils % (A) 1 %; Eosinophils # (A) 0.3 k/uL (0-0.7); Eosinophils % (A) 4 %; HCT 28.7 % (34.0-46.0); HGB 8.9 gm/dL (11.4-16.0); Hypochromasia Moderate; Lymphocytes # (A) 1.1 k/uL (1.0-4.8); Lymphocytes % (A) 12 %; MCH 31.7 pg (25.0-35.0); MCHC 30.8 g/dL (31.0-37.0); MCV 102.9 fL (80.0-100.0); Macrocytosis Moderate; Mean Platelet Volume 7.6; Monocytes # (A) 0.3 k/uL (0-1.0); Monocytes % (A) 3 %; Neutrophils # (A) 7.1 k/uL (1.3-7.7); Neutrophils % (A) 79 %; Platelet Count 209 k/uL (150-450); RBC 2.79 m/uL (3.80-5.40); RDW 17.3 % (11.5-15.5)
[2018-11-25 07:40] LABS: Albumin 3.1 g/dL (3.5-5.0); Potassium 4.2 mmol/L (3.5-5.1); Total Bilirubin 0.4 mg/dL (0.2-1.3); Total Protein 5.2 g/dL (6.3-8.2)
[2018-11-25] MEDS: ALBUTEROL NEBULIZED 2.5 MG/3 ML INHALATION PRN ×4 (07:50→20:13)
[2018-11-25] MEDS: FORMOTEROL FUMARATE 20 MCG/2 ML NEBU INHALATION SCH ×2 (07:50→20:13)
[2018-11-25] MEDS: BUDESONIDE 0.5 MG/2 ML NEBU INHALATION SCH ×2 (07:50→20:13)
[2018-11-25] MEDS: METOPROLOL TARTRATE 50 MG TAB PO SCH ×2 (07:53→19:50)
[2018-11-25] MEDS: CHOLECALCIFEROL 1,000 UNIT TAB PO SCH (07:54)
[2018-11-25] MEDS: ESCITALOPRAM 10 MG TAB PO SCH (07:54)
[2018-11-25] MEDS: GABAPENTIN 300 MG CAP PO SCH (07:54)
[2018-11-25] MEDS: FERROUS SULFATE 325 MG TAB PO SCH ×2 (07:54→19:50)
[2018-11-25] MEDS: CYANOCOBALAMIN 500 MCG TAB PO SCH (07:54)
[2018-11-25] MEDS: ISOSORBIDE MONONITRATE ER 30 MG TAB.ER.24H PO SCH (07:54)
[2018-11-25] MEDS: ASPIRIN 81 MG PO SCH ×2 (07:54→19:51)
[2018-11-25] MEDS: PRAVASTATIN SODIUM 40 MG TAB PO SCH ×2 (07:54→08:50)
[2018-11-25] MEDS: FAMOTIDINE 20 MG TAB PO SCH (07:54)
[2018-11-25] MEDS: FUROSEMIDE 10 MG/ML 4 ML VIAL IV SCH ×2 (07:55→19:51)
[2018-11-25] MEDS ORDERED: ALLOPURINOL 300 MG TAB PO SCH (09:00)
--- NOTE | 2018-11-25 10:23 | CONS ---
CONSULTATION REASON FOR CONSULT: Renal failure. HISTORY OF PRESENT ILLNESS: The patient is an 83-year-old female who was admitted to the hospital on 11/23/2018 with complaints of shortness of breath and increased weakness. The patient is currently being diuresed. She was volume-overloaded on admission. She states she gained a significant amount of weight over the past 2-3 days prior to admission. Patient denied intake of pdno-[id number] foods. She stated she had been taking her diuretics regularly. No complaints of chest pains. The patient denies any significant kidney diseases. Serum creatinine 2.19 on initial admission. It is up to 2.65 today. Review of previous labs shows serum creatinine 1.5 on 10/24/2018 and lowest creatinine 1.05 on 10/06/2018. The patient has been voiding. She is currently maintained on Lasix 40 mg IV q.12 hours. She is also maintained on Zaroxolyn. PAST MEDICAL HISTORY: 1. Hyp tension. 2. Atrial fibrillation, not on anticoagulation. 3. Hyperlipidemia. 4. Coronary artery disease. 5. Osteoarthritis. 6. Chronic kidney disease, stage III. 7. Gout. 8. Hypothyroidism. 9. Memory impairment. PAST SURGICAL HISTORY: 1. Appendectomy. 2. Back surgery. 3. Cardiac ablation. 4. Cholecystectomy. 5. Coronary artery bypass surgery. 6. Coronary stent placement. 7. Hysterectomy. 8. LOW. 9. D&C. 10.Right breast biopsy which was benign. 11.Lumbar laminectomy. SOCIAL HISTORY: Negative for smoking. Patient is a former smoker. No history of drug abuse or alcohol abuse. MEDICATIONS: Medications prior to admission included: 1. Vitamin B12. 2. Aspirin. 3. Xanax. 4. Zyloprim. 5. Vitamin D3. 6. Lexapro. 7. Singulair. 8. Nitrostat. 9. Synthroid. 10.Imdur. 11.Zaroxolyn. 12.Lasix. 13.Iron. 14.Metoprolol. 15.Pulmicort. 16.Neurontin. 17.Pravachol. 18.Zantac. ALLERGIES: ALLERGIES include STATINS. PHYSICAL EXAMINATION: On examination, patient is currently comfortable, awake, not in any acute distress. Blood pressure was 84/56, heart rate 94 per minute. She is afebrile. EXAMINATION OF THE HEART: S1 and S2. EXAMINATION OF LUNGS: Bilateral breath sounds are heard. ABDOMEN: Soft, non-tender. Examination of lower extremities shows trace edema bilaterally. OIL FIELD CASER exam is grossly intact. LABS: Sodium 136, potassium 4.2, CO2 33, BUN 72, serum creatinine 2.65, hemoglobin 8.9 g/dL. UA shows no blood or protein, hyaline casts 37. ASSESSMENT: 1. Acute kidney injury, mainly cardiorenal as well as secondary to hypotension, hypoperfusion. The patient is nonoliguric. May continue with current dose of Lasix. She is maintained on Lopressor for control of heart rate. I will add a small dose of midodrine to help with her blood pressure, as her systolic blood pressure remains low. The patient was also taking NSAIDs at home. She is advised to avoid use of any nonsteroidal anti-inflammatory agents post discharge. 2. Congestive heart failure, acute on top of chronic, mainly diastolic. Echocardiogram in August showed ejection fraction 55% to 60% with severely dilated left atrium. 3. CKD stage 3 secondary to nephrosclerosis. PLAN: Continue with current dose of Lasix. Add midodrine. Repeat labs in a.m. Avoid any nephrotoxic agents. Check ultrasound of the kidneys if not done recently. Thank you for this consultation. Will continue to follow the patient with you during her hospitalization. MANOJ / ROSA MARIA: [id number] / MTDD
--- NOTE | 2018-11-25 13:17 | P.PN ---
Subjective Progress Note Date: 11/25/18 This is a pleasant 83-year-old female with a history of chronic persistent atrial fibrillation who is followed by Dr. Parada. She is not on anticoagulation due to GI bleeding. She presented with symptoms of progressive dyspnea and weight gain. She has had prior admissions for similar findings. She's not had any chest discomfort. She does have a history of CAD with prior CABG. She has not noticed any peripheral edema, PND or orthopnea. Echocardiogram from August this year showed a normal LV systolic function with an ejection fraction of 55-60%, severe MR, mild TR and mild pulmonary hypertension. She is currently on Lasix 40 mg IV push every 12 hours. Labs show stable renal function. Overall, she does not feel her breathing has significantly improved since admission. She continues to be quite short of breath with minimal activity. Objective - Vital Signs Vital signs: Vital Signs Temp 98.1 F 11/25/18 11:45 Pulse 85 11/25/18 11:45 Resp 18 11/25/18 11:45 BP 93/43 11/25/18 11:45 Pulse Ox 91 L 11/25/18 11:45 Intake & Output 11/24/18 11/25/18 11/25/18 18:59 06:59 18:59 Intake Total 653.671 236 Output Total 100 450 600 Balance 553.671 -450 -364 Weight 85.3 kg Intake: Intake, IV Titration 191.671 Amount Heparin Sod,Pork in 0.45% 191.671 NaCl 25,000 unit In 0.45 % NaCl 1 250ml.bag @ 11. 727 UNITS/KG/HR 10 mls/hr IV .Q24H [facility] Rx#: [id number] Oral 462 236 Output: Urine 100 450 600 Other: Voiding Method Toilet Toilet # Voids 2 2 1 - Exam PHYSICAL EXAMINATION: HEENT: Head is atraumatic, normocephalic. Pupils equal, round. Neck is supple. There is no elevated jugular venous pressure. HEART EXAMINATION: Heart sounds irregularly irregular, S1 and S2 with a systolic ejection murmur. CHEST EXAMINATION: Lungs are clear to auscultation and precussion. No chest wall tenderness is noted on palpation or with deep breathing. ABDOMEN: Soft, nontender. Bowel sounds are heard. No organomegaly noted. EXTREMITIES: 2+ peripheral pulses with no evidence of peripheral edema and no calf tenderness noted. NEUROLOGIC patient is awake, alert and oriented x3. . - Labs CBC & Chem 7: 11/25/18 06:32 11/25/18 06:32 Labs: Abnormal Lab Results - Last 24 Hours (Table) 11/24/18 11/24/18 11/25/18 Range/Units 12:43 16:03 06:32 RBC 2.79 L (3.80-5.40) m/uL Hgb 8.9 L (11.4-16.0) gm/dL Hct 28.7 L (34.0-46.0) % MCV 102.9 H (80.0-100.0) fL MCHC 30.8 L (31.0-37.0) g/dL RDW 17.3 H (11.5-15.5) % APTT 48.3 H (22.0-30.0) sec Sodium (137-145) mmol/L Chloride (98-107) mmol/L Carbon Dioxide (22-30) mmol/L BUN (7-17) mg/dL Creatinine (0.52-1.04) mg/dL Glucose (74-99) mg/dL Total Protein (6.3-8.2) g/dL Albumin (3.5-5.0) g/dL Urine Appearance Cloudy H (Clear) Ur Leukocyte Esterase Small H (Negative) Ur Squamous Epith Cells 9 H (0-4) /hpf Urine Bacteria Occasional H (None) /hpf Hyaline Casts 37 H (0-2) /lpf Urine Mucus Rare H (None) /hpf 11/25/18 Range/Units 06:32 RBC (3.80-5.40) m/uL Hgb (11.4-16.0) gm/dL Hct (34.0-46.0) % MCV (80.0-100.0) fL MCHC (31.0-37.0) g/dL RDW (11.5-15.5) % APTT (22.0-30.0) sec Sodium 136 L (137-145) mmol/L Chloride 94 L (98-107) mmol/L Carbon Dioxide 33 H (22-30) mmol/L BUN 72 H (7-17) mg/dL Creatinine 2.65 H (0.52-1.04) mg/dL Glucose 102 H (74-99) mg/dL Total Protein 5.2 L (6.3-8.2) g/dL Albumin 3.1 L (3.5-5.0) g/dL Urine Appearance (Clear) Ur Leukocyte Esterase (Negative) Ur Squamous Epith Cells (0-4) /hpf Urine Bacteria (None) /hpf Hyaline Casts (0-2) /lpf Urine Mucus (None) /hpf Assessment and Plan Assessment: #1 symptoms of progressive dyspnea with possible element of diastolic congestive heart failure #2 chronic atrial fibrillation, not anticoagulated due to recurrent GI bleeding #3 mild elevation of troponin with no evidence of primary ischemic event #4 CAD status post CABG many years ago #5 hypertension #6 hyperlipidemia #7 obesity #8 renal failure Plan: From cardiology 's perspective, medications were reviewed and we will continue the same. Continue IV diuretics for now. We will continue to follow patient with right further recommendations accordingly. FILLING MIXER note has been reviewed, I agree with a documented findings and plan of care. Patient was seen and examined.
--- NOTE | 2018-11-25 16:18 | P.PN ---
Subjective Progress Note Date: 11/25/18 This is an 83-year-old female patient of Dr. Kuhn. Patient presented with complaints of increasing shortness of breath and lethargy. Per patient's daughter at bedside patient has had increased oxygen requirements. Patient has a known past medical history of atrial fibrillation in which she is not on anticoagulationd due to falls, coronary artery disease, chest pain, congestive heart failure, GERD, hyperlipidemia, myocardial infarction, osteoarthritis, pneumonia and renal disease. Chest x-ray completed showing chronic elevated right diaphragm unchanged. Pulmonary fibrosis. No change compared to old exam mild heart failure is possible. EKG completed showing atrial fibrillation heart rate 84. Troponins elevated at 0.695, 0.5198 0.322. BNP elevated at 4290. Cardiology services have been consulted. Patient started on heparin drip. Patient also started on IV Lasix per cardiology services. Creatinine also elevated 2.16 which is higher then patient's baseline. At that time patient is resting comfortably in bed. Patient reports no improvement with shortness of breath. Patient denies chest pain. Patient denies nausea vomiting or diarrhea. Patient denies any urinary burning or frequency. On 11/25/2018 patient was seen and examined on the telemetry floor she is alert and oriented 3 in no apparent distress she denies any fever or chills no headache or dizziness she is complaining of feeling tremor all over otherwise no complaints no chest pain no palpitation shortness of breath has improved no nausea or vomiting no abdominal pain no diarrhea and no urinary symptoms Objective - Vital Signs Vital signs: Vital Signs Temp 98.1 F 11/25/18 15:19 Pulse 78 11/25/18 15:37 Resp 18 11/25/18 15:19 BP 95/54 11/25/18 15:19 Pulse Ox 93 L 11/25/18 15:19 Intake & Output 11/24/18 11/25/18 11/25/18 18:59 06:59 18:59 Intake Total 653.671 476 Output Total 100 450 800 Balance 553.671 -450 -324 Weight 85.3 kg Intake: Intake, IV Titration 191.671 Amount Heparin Sod,Pork in 0.45% 191.671 NaCl 25,000 unit In 0.45 % NaCl 1 250ml.bag @ 11. 727 UNITS/KG/HR 10 mls/hr IV .Q24H [facility] Rx#: [id number] Oral 462 476 Output: Urine 100 450 800 Other: Voiding Method Toilet Toilet # Voids 2 2 1 - Exam In general patient is alert and oriented 3 in no apparent distress Head normocephalic and atraumatic Neck supple no JVD no goiter Lungs clear to auscultation bilaterally no wheezing or crackles Heart regular rate and rhythm S1-S2, no rub or gallop Abdomen is soft nontender nondistended positive bowel sounds no hepatosplenomegaly Extremities no edema no cyanosis or clubbing Neuro no gross focal neurological deficit - Labs CBC & Chem 7: 11/25/18 06:32 11/25/18 06:32 Labs: Abnormal Lab Results - Last 24 Hours (Table) 11/24/18 11/25/18 11/25/18 Range/Units 16:03 06:32 06:32 RBC 2.79 L (3.80-5.40) m/uL Hgb 8.9 L (11.4-16.0) gm/dL Hct 28.7 L (34.0-46.0) % MCV 102.9 H (80.0-100.0) fL MCHC 30.8 L (31.0-37.0) g/dL RDW 17.3 H (11.5-15.5) % APTT 48.3 H (22.0-30.0) sec Sodium 136 L (137-145) mmol/L Chloride 94 L (98-107) mmol/L Carbon Dioxide 33 H (22-30) mmol/L BUN 72 H (7-17) mg/dL Creatinine 2.65 H (0.52-1.04) mg/dL Glucose 102 H (74-99) mg/dL Total Protein 5.2 L (6.3-8.2) g/dL Albumin 3.1 L (3.5-5.0) g/dL Assessment and Plan Plan: 1. Dyspnea related to acute on chronic systolic congestive heart failure. Chest x-ray completed showing chronic elevated right diaphragm unchanged. Pulmonary fibrosis. No change compared to old exam mild heart failure is possible. BNP elevated at 4290. Cardiology services have been consulted. Patient started on IV Lasix 2. Mildly elevated troponin most likely representing a type II event per cardiology. currently on heparin drip per cardiology services 3. Acute on chronic kidney disease stage III. Patient's creatinine 2.16 this does appear higher than baseline 4. History of coronary artery disease with coronary artery bypass graft surgery 5. Chronic atrial fibrillation with controlled heart rate. Patient not on anticoagulation due to high risk of bleeding in the past with falls. 6. History of COPD 7. History of frequent falls 8. Increased weakness. Will consult physical therapy 9. Hypothyroidism. Home meds resumed 10. Iron deficiency anemia. Ferrous sulfate resumed DVT prophylaxis heparin drip. GI prophylaxis Pepcid Urinary analysis has been ordered Cardiology consult placed Repeat a.m. labs ordered
[2018-11-25] MEDS: MIDODRINE 5 MG TAB PO SCH (16:59)
[2018-11-25] MEDS: MONTELUKAST 10 MG TAB PO SCH (19:50)
[2018-11-25 23:47] LABS: Appearance,Urine Clear (Clear); Bilirubin,Urine Negative (Negative); Blood,Urine Negative (Negative); Color,Urine Light Yellow; Glucose,Urine (UA) Negative (Negative); Ketones,Urine Negative (Negative); Leukocyte Esterase,Urine Negative (Negative); Nitrite,Urine Negative (Negative); PH, Urine 5.5 (5.0-8.0); Protein,Urine Negative (Negative); Specific Gravity,Urine 1.007 (1.001-1.035); Urobilinogen,Urine <2.0 mg/dL (<2.0)
[2018-11-26] MEDS: HYDROcodone/APAP 5-325MG 1 EACH TAB PO PRN ×4 (03:08→22:46)
[2018-11-26] MEDS: MIDODRINE 5 MG TAB PO SCH ×2 (06:08→16:16)
[2018-11-26] MEDS: LEVOTHYROXINE 125 MCG TAB PO SCH (06:08)
[2018-11-26 06:57] LABS: Anisocytosis Slight; Basophils # (A) 0.1 k/uL (0-0.2); Basophils % (A) 1 %; Eosinophils # (A) 0.3 k/uL (0-0.7); Eosinophils % (A) 3 %; HCT 28.2 % (34.0-46.0); HGB 8.9 gm/dL (11.4-16.0); Hypochromasia Slight; Lymphocytes # (A) 1.2 k/uL (1.0-4.8); Lymphocytes % (A) 13 %; MCH 32.4 pg (25.0-35.0); MCHC 31.6 g/dL (31.0-37.0); MCV 102.4 fL (80.0-100.0); Macrocytosis Moderate; Mean Platelet Volume 7.5; Monocytes # (A) 0.3 k/uL (0-1.0); Monocytes % (A) 4 %; Neutrophils % (A) 78 %; Platelet Count 218 k/uL (150-450); RBC 2.76 m/uL (3.80-5.40); RDW 16.8 % (11.5-15.5)
[2018-11-26] MEDS: FORMOTEROL FUMARATE 20 MCG/2 ML NEBU INHALATION SCH ×2 (06:58→19:20)
[2018-11-26] MEDS: BUDESONIDE 0.5 MG/2 ML NEBU INHALATION SCH ×2 (06:58→19:20)
[2018-11-26] MEDS: ALBUTEROL NEBULIZED 2.5 MG/3 ML INHALATION PRN ×3 (06:58→19:20)
[2018-11-26 07:17] LABS: Albumin 3.4 g/dL (3.5-5.0); Calcium 9.1 mg/dL (8.4-10.2); Potassium 3.7 mmol/L (3.5-5.1); Total Bilirubin 0.4 mg/dL (0.2-1.3); Total Protein 5.6 g/dL (6.3-8.2)
[2018-11-26] MEDS: ALLOPURINOL 100 MG TAB PO SCH (08:35)
[2018-11-26] MEDS: METOPROLOL TARTRATE 50 MG TAB PO SCH ×2 (08:35→19:28)
[2018-11-26] MEDS: ESCITALOPRAM 10 MG TAB PO SCH (08:35)
[2018-11-26] MEDS: PRAVASTATIN SODIUM 40 MG TAB PO SCH (08:37)
[2018-11-26] MEDS: CYANOCOBALAMIN 500 MCG TAB PO SCH (08:37)
[2018-11-26] MEDS: FERROUS SULFATE 325 MG TAB PO SCH ×2 (08:37→19:28)
[2018-11-26] MEDS: GABAPENTIN 300 MG CAP PO SCH (08:37)
[2018-11-26] MEDS: FAMOTIDINE 20 MG TAB PO SCH (08:37)
[2018-11-26] MEDS: ASPIRIN 81 MG PO SCH ×2 (08:37→19:28)
[2018-11-26] MEDS: ISOSORBIDE MONONITRATE ER 30 MG TAB.ER.24H PO SCH (08:37)
[2018-11-26] MEDS: FUROSEMIDE 10 MG/ML 4 ML VIAL IV SCH ×2 (08:37→19:28)
[2018-11-26] MEDS: CHOLECALCIFEROL 1,000 UNIT TAB PO SCH (08:37)
--- NOTE | 2018-11-26 09:21 | P.PN ---
Subjective Progress Note Date: 11/26/18 This is a pleasant 83-year-old female with a history of chronic persistent atrial fibrillation who is followed by Dr. Parada. She is not on anticoagulation due to GI bleeding. She presented with symptoms of progressive dyspnea and weight gain. She has had prior admissions for similar findings. She's not had any chest discomfort. She does have a history of CAD with prior CABG. She has not noticed any peripheral edema, PND or orthopnea. Echocardiogram from August this year showed a normal LV systolic function with an ejection fraction of 55-60%, severe MR, mild TR and mild pulmonary hypertension. She is currently on Lasix 40 mg IV push every 12 hours. Labs show improved renal function. Overall, she feels her breathing has improved. Objective - Vital Signs Vital signs: Vital Signs Temp 98.1 F 11/25/18 15:19 Pulse 116 H 11/26/18 08:37 Resp 18 11/26/18 08:37 BP 116/67 11/26/18 08:37 Pulse Ox 93 L 11/26/18 08:37 Intake & Output 11/25/18 11/26/18 11/26/18 18:59 06:59 18:59 Intake Total 836 480 Output Total 804 350 300 Balance 32 -350 180 Weight 85 kg Intake: Oral 836 480 Output: Urine 800 350 300 Stool 4 Other: Voiding Method Toilet # Voids 1 1 - Exam PHYSICAL EXAMINATION: HEENT: Head is atraumatic, normocephalic. Pupils equal, round. Neck is supple. There is no elevated jugular venous pressure. HEART EXAMINATION: Heart sounds irregularly irregular, S1 and S2 with a systolic ejection murmur. CHEST EXAMINATION: Lungs reveal few faint crackles. No chest wall tenderness is noted on palpation or with deep breathing. ABDOMEN: Soft, nontender. Bowel sounds are heard. No organomegaly noted. EXTREMITIES: 2+ peripheral pulses with no evidence of peripheral edema and no calf tenderness noted. NEUROLOGIC patient is awake, alert and oriented x3. . - Labs CBC & Chem 7: 11/26/18 05:42 11/26/18 05:42 Labs: Abnormal Lab Results - Last 24 Hours (Table) 11/26/18 11/26/18 Range/Units 05:42 05:42 RBC 2.76 L (3.80-5.40) m/uL Hgb 8.9 L (11.4-16.0) gm/dL Hct 28.2 L (34.0-46.0) % MCV 102.4 H (80.0-100.0) fL RDW 16.8 H (11.5-15.5) % Sodium 135 L (137-145) mmol/L Chloride 93 L (98-107) mmol/L Carbon Dioxide 32 H (22-30) mmol/L BUN 70 H (7-17) mg/dL Creatinine 2.15 H (0.52-1.04) mg/dL Glucose 108 H (74-99) mg/dL Total Protein 5.6 L (6.3-8.2) g/dL Albumin 3.4 L (3.5-5.0) g/dL Assessment and Plan Assessment: #1 symptoms of progressive dyspnea with possible element of diastolic congestive heart failure #2 chronic atrial fibrillation, not anticoagulated due to recurrent GI bleeding #3 mild elevation of troponin with no evidence of primary ischemic event #4 CAD with prior CABG #5 hypertension #6 hyperlipidemia #7 obesity #8 renal failure Plan: From cardiology 's perspective, medications were reviewed and we will continue the same. Continue IV diuretics for now. Continue to monitor renal function and electrolytes. Further recommendations to follow. GROUND INSTRUCTOR BASIC note has been reviewed, I agree with a documented findings and plan of care. Patient was seen and examined.
--- NOTE | 2018-11-26 11:59 | PN ---
PROGRESS NOTE Patient is seen for followup for acute kidney injury. The patient was admitted to the hospital with complaints of shortness of breath. She is currently being treated for volume overload, CHF exacerbation. The patient states she is feeling better. She is maintained on Lasix 40 mg IV q.12 hours. Renal function has improved with creatinine down from 2.65 yesterday to 2.15 today. Weight is down slightly from yesterday. 24 hour urine output charted at 1.1 L. PHYSICAL EXAMINATION: On examination today, blood pressure 116/67, heart rate 94 per minute. Patient is afebrile. Examination of the heart S1, S2. Examination of the lungs bilateral breath sounds are heard. Decreased breath sounds at bases. Abdomen is soft, nontender, obese. Examination of lower extremities edema 1+ bilaterally. MULTIFOLD OPERATOR exam is grossly intact. LAB: Show sodium 135, potassium 3.7, chloride 93, BUN 70, serum creatinine 2.15, hemoglobin 8.9 g/dL. UA completely benign. ASSESSMENT: 1. Acute kidney injury, cardiorenal, currently improved. Continue with current dose of Lasix. 2. Chronic kidney disease, NKF stage III, secondary to nephrosclerosis. Baseline creatinine about 1.5-1.2 mg/dL. 3. Anemia, rule out iron deficiency. Iron saturation was low at 14% on October 23, 2018. I will repeat another set of iron profile. 4. Congestive heart failure, acute on top of chronic, mainly diastolic. Ejection fraction 55% to 60% with severely dilated left atrium. 5. Right renal cyst, benign appearing. PLAN: Repeat iron studies. Continue current dose of Lasix. MMODL / IJN: [id number] /
[2018-11-26] MEDS ORDERED: DARBEPOETIN ALFA 60 MCG/0.3 ML SYRINGE SQ SCH (12:00)
--- NOTE | 2018-11-26 14:40 | P.PN ---
Subjective Progress Note Date: 11/26/18 This is an 83-year-old female patient of Dr. Kuhn. Patient presented with complaints of increasing shortness of breath and lethargy. Per patient's daughter at bedside patient has had increased oxygen requirements. Patient has a known past medical history of atrial fibrillation in which she is not on anticoagulationd due to falls, coronary artery disease, chest pain, congestive heart failure, GERD, hyperlipidemia, myocardial infarction, osteoarthritis, pneumonia and renal disease. Chest x-ray completed showing chronic elevated right diaphragm unchanged. Pulmonary fibrosis. No change compared to old exam mild heart failure is possible. EKG completed showing atrial fibrillation heart rate 84. Troponins elevated at 0.695, 0.5198 0.322. BNP elevated at 4290. Cardiology services have been consulted. Patient started on heparin drip. Patient also started on IV Lasix per cardiology services. Creatinine also elevated 2.16 which is higher then patient's baseline. At that time patient is resting comfortably in bed. Patient reports no improvement with shortness of breath. Patient denies chest pain. Patient denies nausea vomiting or diarrhea. Patient denies any urinary burning or frequency. On 11/25/2018 patient was seen and examined on the telemetry floor she is alert and oriented 3 in no apparent distress she denies any fever or chills no headache or dizziness she is complaining of feeling tremor all over otherwise no complaints no chest pain no palpitation shortness of breath has improved no nausea or vomiting no abdominal pain no diarrhea and no urinary symptoms On 11/26/2018 patient is doing better she is sitting on the edge of the bed she is still complaining of cough and shortness of breath and mild tremor otherwise she denies any complaints there is no fever or chills no headache or dizziness no chest pain no nausea or vomiting no abdominal pain no diarrhea and no urinary symptoms Objective - Vital Signs Vital signs: Vital Signs Temp 97.6 F 11/26/18 11:12 Pulse 78 11/26/18 11:12 Resp 18 11/26/18 11:12 BP 80/45 11/26/18 11:12 Pulse Ox 93 L 11/26/18 11:12 Intake & Output 11/25/18 11/26/18 11/26/18 18:59 06:59 18:59 Intake Total 836 720 Output Total 804 350 700 Balance 32 -350 20 Weight 85 kg Intake: Oral 836 720 Output: Urine 800 350 700 Stool 4 Other: Voiding Method Toilet # Voids 1 1 1 - Exam In general patient is alert and oriented 3 in no apparent distress Head normocephalic and atraumatic Neck supple no JVD no goiter Lungs clear to auscultation bilaterally no wheezing or crackles Heart regular rate and rhythm S1-S2, no rub or gallop Abdomen is soft nontender nondistended positive bowel sounds no hepatosplenomegaly Extremities no edema no cyanosis or clubbing Neuro no gross focal neurological deficit - Labs CBC & Chem 7: 11/26/18 05:42 11/26/18 05:42 Labs: Abnormal Lab Results - Last 24 Hours (Table) 11/26/18 11/26/18 Range/Units 05:42 05:42 RBC 2.76 L (3.80-5.40) m/uL Hgb 8.9 L (11.4-16.0) gm/dL Hct 28.2 L (34.0-46.0) % MCV 102.4 H (80.0-100.0) fL RDW 16.8 H (11.5-15.5) % Sodium 135 L (137-145) mmol/L Chloride 93 L (98-107) mmol/L Carbon Dioxide 32 H (22-30) mmol/L BUN 70 H (7-17) mg/dL Creatinine 2.15 H (0.52-1.04) mg/dL Glucose 108 H (74-99) mg/dL Total Protein 5.6 L (6.3-8.2) g/dL Albumin 3.4 L (3.5-5.0) g/dL Assessment and Plan Plan: 1. Dyspnea related to acute on chronic systolic congestive heart failure. Chest x-ray completed showing chronic elevated right diaphragm unchanged. Pulmonary fibrosis. No change compared to old exam mild heart failure is possible. BNP elevated at 4290. Cardiology services have been consulted. Patient started on IV Lasix 2. Mildly elevated troponin most likely representing a type II event per cardiology. currently on heparin drip per cardiology services 3. Acute on chronic kidney disease stage III. Patient's creatinine 2.16 this does appear higher than baseline 4. History of coronary artery disease with coronary artery bypass graft surgery 5. Chronic atrial fibrillation with controlled heart rate. Patient not on anticoagulation due to high risk of bleeding in the past with falls. 6. History of COPD 7. History of frequent falls 8. Increased weakness. Will consult physical therapy 9. Hypothyroidism. Home meds resumed 10. Iron deficiency anemia. Ferrous sulfate resumed DVT prophylaxis Lovenox. GI prophylaxis Pepcid Urinary analysis has been ordered Cardiology consult placed Repeat a.m. labs ordered
[2018-11-26] MEDS: ENOXAPARIN 40 MG/0.4 ML SYRINGE SQ SCH (16:16)
[2018-11-26] MEDS: MONTELUKAST 10 MG TAB PO SCH (19:28)
[2018-11-27] MEDS: MIDODRINE 5 MG TAB PO SCH ×2 (06:26→16:11)
[2018-11-27] MEDS: LEVOTHYROXINE 125 MCG TAB PO SCH (06:26)
[2018-11-27] MEDS: BUDESONIDE 0.5 MG/2 ML NEBU INHALATION SCH ×2 (07:35→19:29)
[2018-11-27] MEDS: FORMOTEROL FUMARATE 20 MCG/2 ML NEBU INHALATION SCH ×2 (07:35→19:29)
[2018-11-27] MEDS: ALBUTEROL NEBULIZED 2.5 MG/3 ML INHALATION PRN ×4 (07:35→19:29)
[2018-11-27 07:48] LABS: Anisocytosis Slight; Basophils # (A) 0.1 k/uL (0-0.2); Basophils % (A) 1 %; Eosinophils # (A) 0.4 k/uL (0-0.7); Eosinophils % (A) 4 %; HCT 31.2 % (34.0-46.0); HGB 9.8 gm/dL (11.4-16.0); Hypochromasia Slight; Lymphocytes # (A) 1.7 k/uL (1.0-4.8); Lymphocytes % (A) 19 %; MCH 32.2 pg (25.0-35.0); MCHC 31.3 g/dL (31.0-37.0); MCV 102.8 fL (80.0-100.0); Macrocytosis Moderate; Monocytes # (A) 0.3 k/uL (0-1.0); Monocytes % (A) 4 %; Neutrophils # (A) 6.2 k/uL (1.3-7.7); Neutrophils % (A) 71 %; Platelet Count 252 k/uL (150-450); RBC 3.03 m/uL (3.80-5.40); RDW 16.9 % (11.5-15.5); WBC 8.7 k/uL (3.8-10.6)
[2018-11-27 07:52] VITALS: BMI 31.9
[2018-11-27 08:03] LABS: Albumin 3.6 g/dL (3.5-5.0); Calcium 9.3 mg/dL (8.4-10.2); Potassium 4.2 mmol/L (3.5-5.1); Total Bilirubin 0.4 mg/dL (0.2-1.3); Total Protein 5.9 g/dL (6.3-8.2)
[2018-11-27] MEDS: METOPROLOL TARTRATE 50 MG TAB PO SCH ×2 (10:02→19:56)
[2018-11-27] MEDS: ESCITALOPRAM 10 MG TAB PO SCH (10:03)
[2018-11-27] MEDS: PRAVASTATIN SODIUM 40 MG TAB PO SCH (10:03)
[2018-11-27] MEDS: GABAPENTIN 300 MG CAP PO SCH (10:03)
[2018-11-27] MEDS: ISOSORBIDE MONONITRATE ER 30 MG TAB.ER.24H PO SCH (10:03)
[2018-11-27] MEDS: ASPIRIN 81 MG PO SCH ×2 (10:03→19:56)
[2018-11-27] MEDS: CHOLECALCIFEROL 1,000 UNIT TAB PO SCH (10:03)
[2018-11-27] MEDS: FAMOTIDINE 20 MG TAB PO SCH (10:04)
[2018-11-27] MEDS: FERROUS SULFATE 325 MG TAB PO SCH ×2 (10:04→19:56)
[2018-11-27] MEDS: ENOXAPARIN 40 MG/0.4 ML SYRINGE SQ SCH (10:04)
[2018-11-27] MEDS: ALLOPURINOL 100 MG TAB PO SCH (10:04)
[2018-11-27] MEDS: FUROSEMIDE 10 MG/ML 4 ML VIAL IV SCH ×2 (10:04→19:56)
[2018-11-27] MEDS: CYANOCOBALAMIN 500 MCG TAB PO SCH (10:04)
--- NOTE | 2018-11-27 10:12 | P.PN ---
Subjective Progress Note Date: 11/27/18 This is an 83-year-old female patient of Dr. Kuhn. Patient presented with complaints of increasing shortness of breath and lethargy. Per patient's daughter at bedside patient has had increased oxygen requirements. Patient has a known past medical history of atrial fibrillation in which she is not on anticoagulationd due to falls, coronary artery disease, chest pain, congestive heart failure, GERD, hyperlipidemia, myocardial infarction, osteoarthritis, pneumonia and renal disease. Chest x-ray completed showing chronic elevated right diaphragm unchanged. Pulmonary fibrosis. No change compared to old exam mild heart failure is possible. EKG completed showing atrial fibrillation heart rate 84. Troponins elevated at 0.695, 0.5198 0.322. BNP elevated at 4290. Cardiology services have been consulted. Patient started on heparin drip. Patient also started on IV Lasix per cardiology services. Creatinine also elevated 2.16 which is higher then patient's baseline. At that time patient is resting comfortably in bed. Patient reports no improvement with shortness of breath. Patient denies chest pain. Patient denies nausea vomiting or diarrhea. Patient denies any urinary burning or frequency. On 11/25/2018 patient was seen and examined on the telemetry floor she is alert and oriented 3 in no apparent distress she denies any fever or chills no headache or dizziness she is complaining of feeling tremor all over otherwise no complaints no chest pain no palpitation shortness of breath has improved no nausea or vomiting no abdominal pain no diarrhea and no urinary symptoms On 11/26/2018 patient is doing better she is sitting on the edge of the bed she is still complaining of cough and shortness of breath and mild tremor otherwise she denies any complaints there is no fever or chills no headache or dizziness no chest pain no nausea or vomiting no abdominal pain no diarrhea and no urinary symptoms On 11/27/2018 patient is alert and oriented. Patient remains short of breath after activity. Patient remains on IV Lasix. Hemoglobin improving to 9.8. Creatinine decreasing to 2.06 and bun 65. At this time patient denies chest pain or shortness of breath. Patient denies nausea vomiting or diarrhea. Patient denies any urinary burning or frequency. Objective - Vital Signs Vital signs: Vital Signs Temp 98.7 F 11/27/18 07:55 Pulse 104 H 11/27/18 08:02 Resp 18 11/27/18 07:55 BP 117/58 11/27/18 07:55 Pulse Ox 92 L 11/27/18 07:55 Intake & Output 11/26/18 11/27/18 11/27/18 18:59 06:59 18:59 Intake Total 960 240 Output Total 1200 300 Balance -240 -60 Weight 84.5 kg 84.5 kg Intake: Oral 960 240 Output: Urine 1200 300 Other: Voiding Method Toilet # Voids 1 2 1 - Exam In general patient is alert and oriented 3 in no apparent distress Head normocephalic and atraumatic Neck supple no JVD no goiter Lungs clear to auscultation bilaterally no wheezing or crackles Heart regular rate and rhythm S1-S2, no rub or gallop Abdomen is soft nontender nondistended positive bowel sounds no hepa tosplenomegaly Extremities no edema no cyanosis or clubbing Neuro no gross focal neurological deficit - Labs CBC & Chem 7: 11/27/18 07:14 11/27/18 07:14 Labs: Abnormal Lab Results - Last 24 Hours (Table) 11/27/18 11/27/18 Range/Units 07:14 07:14 RBC 3.03 L (3.80-5.40) m/uL Hgb 9.8 L (11.4-16.0) gm/dL Hct 31.2 L (34.0-46.0) % MCV 102.8 H (80.0-100.0) fL RDW 16.9 H (11.5-15.5) % Sodium 135 L (137-145) mmol/L Chloride 93 L (98-107) mmol/L Carbon Dioxide 33 H (22-30) mmol/L BUN 65 H (7-17) mg/dL Creatinine 2.06 H (0.52-1.04) mg/dL Total Protein 5.9 L (6.3-8.2) g/dL Assessment and Plan Assessment: 1. Dyspnea related to acute on chronic diastolic congestive heart failure. Chest x-ray completed showing chronic elevated right diaphragm unchanged. Pulmonary fibrosis. No change compared to old exam mild heart failure is possible. BNP elevated at 4290. Cardiology services have been consulted. Patient remains on IV Lasix 2. Mildly elevated troponin most likely representing a type II with no evidence of coronary event event per cardiology. 3. Acute on chronic kidney disease stage III. Ultrasound of kidneys completed showing no evidence of hydronephrosis at this point in time no nephrolithiasis no solid masses are seen. Creatinine trending down to 2.06 and bun 65 4. History of coronary artery disease with coronary artery bypass graft surgery 5. Chronic atrial fibrillation with controlled heart rate. Patient not on anticoagulation due to high risk of bleeding in the past with falls. 6. History of COPD 7. History of frequent falls 8. Increased weakness. Will consult physical therapy 9. Hypothyroidism. Home meds resumed 10. Iron deficiency anemia. Ferrous sulfate resumed. Hemoglobin improving to 9.8 DVT prophylaxis Lovenox. GI prophylaxis Pepcid I performed an examination of the patient and discussed their management with the Nurse Practitioner. I have reviewed the Nurse Practitioner's notes and agree with the documented findings and plan of care
[2018-11-27] MEDS: METOLAZONE 2.5 MG TAB PO SCH (12:03)
[2018-11-27 12:14] LABS: Iron Saturation 9.93 (12.00-45.00)
--- NOTE | 2018-11-27 12:45 | PN ---
PROGRESS NOTE Patient is seen for followup for chronic kidney disease and acute kidney injury. She is currently being diuresed for volume overload. Renal function continues to improve. PHYSICAL EXAMINATION: This morning, patient is comfortable. Blood pressure was 117/58, heart rate 105 per minute. She is afebrile. Examination of the heart S1, S2. Examination of the lungs, bilateral breath sounds are heard. Abdomen is soft, nontender. Examination of the lower extremities shows chronic skin changes. Edema 1+ bilaterally. HAND CELL TUBER exam grossly intact. LABS: Shows sodium 135, potassium 4.2, BUN 65, serum creatinine 2.06, hemoglobin 9.8 g/dL. UA is completely benign. ASSESSMENT: 1. Acute kidney injury, cardiorenal, currently improving. 2. Volume overload. Continue to improve. The patient is maintained on IV Lasix. 3. Congestive heart failure, acute on top of chronic, mainly diastolic. 4. Cardiomyopathy with dilated left atrium and ejection fraction 55%-60/%. 5. Anemia. Maintained on Aranesp. No active bleeding noted. Iron profile in October showed iron saturation of 14%. 6. Continue to diurese patient, switch to oral diuretics tomorrow. MMODL / IJN: [id number] /
--- NOTE | 2018-11-27 12:59 | P.PN ---
Subjective Progress Note Date: 11/27/18 This is a pleasant 83-year-old female with a history of chronic persistent atrial fibrillation who is followed by Dr. Parada. She is not on anticoagulation due to GI bleeding. She presented with symptoms of progressive dyspnea and weight gain. She has had prior admissions for similar findings. She's not had any chest discomfort. She does have a history of CAD with prior CABG. She has not noticed any peripheral edema, PND or orthopnea. Echocardiogram from August this year showed a normal LV systolic function with an ejection fraction of 55-60%, severe MR, mild TR and mild pulmonary hypertension. She is currently on Lasix 40 mg IV push every 12 hours. Labs show improved renal function. Overall, she feels her breathing has improved. sodium 135, potassium 4.2, BUN 65 and creatinine 2.0. Objective - Vital Signs Vital signs: Vital Signs Temp 98.7 F 11/27/18 07:55 Pulse 88 11/27/18 11:07 Resp 18 11/27/18 07:55 BP 117/58 11/27/18 07:55 Pulse Ox 92 L 11/27/18 07:55 Intake & Output 11/26/18 11/27/18 11/27/18 18:59 06:59 18:59 Intake Total 960 240 Output Total 1200 300 Balance -240 -60 Weight 84.5 kg 84.5 kg Intake: Oral 960 240 Output: Urine 1200 300 Other: Voiding Method Toilet # Voids 1 2 1 - Exam PHYSICAL EXAMINATION: HEENT: Head is atraumatic, normocephalic. Pupils equal, round. Neck is supple. There is no elevated jugular venous pressure. HEART EXAMINATION: Heart sounds irregularly irregular, S1 and S2 with a systolic ejection murmur. CHEST EXAMINATION: Lungs reveal few faint crackles. No chest wall tenderness is noted on palpation or with deep breathing. ABDOMEN: Soft, nontender. Bowel sounds are heard. No organomegaly noted. EXTREMITIES: 2+ peripheral pulses with no evidence of peripheral edema and no calf tenderness noted. NEUROLOGIC patient is awake, alert and oriented x3. . - Labs CBC & Chem 7: 11/27/18 07:14 11/27/18 07:14 Labs: Abnormal Lab Results - Last 24 Hours (Table) 11/26/18 11/27/18 11/27/18 Range/Units 05:42 07:14 07:14 RBC 3.03 L (3.80-5.40) m/uL Hgb 9.8 L (11.4-16.0) gm/dL Hct 31.2 L (34.0-46.0) % MCV 102.8 H (80.0-100.0) fL RDW 16.9 H (11.5-15.5) % Sodium 135 L (137-145) mmol/L Chloride 93 L (98-107) mmol/L Carbon Dioxide 33 H (22-30) mmol/L BUN 65 H (7-17) mg/dL Creatinine 2.06 H (0.52-1.04) mg/dL Iron 28 L (50-170) ug/dL Iron Saturation 9.93 L (12.00-45.00) Total Protein 5.9 L (6.3-8.2) g/dL Assessment and Plan Plan: Assessment: #1 symptoms of progressive dyspnea with possible element of diastolic congestive heart failure #2 chronic atrial fibrillation, not anticoagulated due to recurrent GI bleeding #3 mild elevation of troponin with no evidence of primary ischemic event #4 CAD with prior CABG #5 hypertension #6 hyperlipidemia #7 obesity #8 renal failure Plan From cardiology's perspective, we'll recommend to continue current dose of IV Lasix along with Zaroxolyn. Check lytes BUN and creatinine in the morning. DNP note has been reviewed, I agree with a documented findings and plan of care. Patient was seen and examined.
[2018-11-27] MEDS: MONTELUKAST 10 MG TAB PO SCH (19:56)
[2018-11-28] MEDS: HYDROcodone/APAP 5-325MG 1 EACH TAB PO PRN ×2 (00:01→08:01)
[2018-11-28] MEDS: MIDODRINE 5 MG TAB PO SCH ×2 (06:32→17:24)
[2018-11-28] MEDS: LEVOTHYROXINE 125 MCG TAB PO SCH (06:32)
[2018-11-28 07:48] LABS: Anisocytosis Slight; Basophils % (A) 1 %; Eosinophils # (A) 0.4 k/uL (0-0.7); Eosinophils % (A) 5 %; HCT 29.5 % (34.0-46.0); HGB 9.4 gm/dL (11.4-16.0); Hypochromasia Moderate; Lymphocytes # (A) 1.4 k/uL (1.0-4.8); Lymphocytes % (A) 18 %; MCH 32.6 pg (25.0-35.0); MCV 101.9 fL (80.0-100.0); Macrocytosis Moderate; Mean Platelet Volume 7.6; Monocytes # (A) 0.2 k/uL (0-1.0); Monocytes % (A) 3 %; Neutrophils # (A) 5.4 k/uL (1.3-7.7); Neutrophils % (A) 72 %; Platelet Count 236 k/uL (150-450); RBC 2.89 m/uL (3.80-5.40); RDW 17.5 % (11.5-15.5); WBC 7.6 k/uL (3.8-10.6)
[2018-11-28 07:55] LABS: Albumin 3.5 g/dL (3.5-5.0); Calcium 9.3 mg/dL (8.4-10.2); Potassium 3.6 mmol/L (3.5-5.1); Total Bilirubin 0.4 mg/dL (0.2-1.3); Total Protein 5.8 g/dL (6.3-8.2)
[2018-11-28] MEDS: ISOSORBIDE MONONITRATE ER 30 MG TAB.ER.24H PO SCH (08:00)
[2018-11-28] MEDS: FERROUS SULFATE 325 MG TAB PO SCH ×2 (08:00→20:32)
[2018-11-28] MEDS: PRAVASTATIN SODIUM 40 MG TAB PO SCH (08:00)
[2018-11-28] MEDS: GABAPENTIN 300 MG CAP PO SCH (08:00)
[2018-11-28] MEDS: ALLOPURINOL 100 MG TAB PO SCH (08:00)
[2018-11-28] MEDS: METOPROLOL TARTRATE 50 MG TAB PO SCH ×2 (08:00→20:32)
[2018-11-28] MEDS: CHOLECALCIFEROL 1,000 UNIT TAB PO SCH (08:00)
[2018-11-28] MEDS: FAMOTIDINE 20 MG TAB PO SCH (08:00)
[2018-11-28] MEDS: ASPIRIN 81 MG PO SCH ×2 (08:00→20:32)
[2018-11-28] MEDS: ESCITALOPRAM 10 MG TAB PO SCH (08:00)
[2018-11-28] MEDS: CYANOCOBALAMIN 500 MCG TAB PO SCH (08:00)
[2018-11-28] MEDS: FUROSEMIDE 10 MG/ML 4 ML VIAL IV SCH (08:02)
[2018-11-28] MEDS: ENOXAPARIN 30 MG/0.3 ML SYRINGE SQ SCH (08:02)
--- NOTE | 2018-11-28 09:44 | P.PN ---
Subjective Progress Note Date: 11/28/18 This is an 83-year-old female patient of Dr. Kuhn. Patient presented with complaints of increasing shortness of breath and lethargy. Per patient's daughter at bedside patient has had increased oxygen requirements. Patient has a known past medical history of atrial fibrillation in which she is not on anticoagulationd due to falls, coronary artery disease, chest pain, congestive heart failure, GERD, hyperlipidemia, myocardial infarction, osteoarthritis, pneumonia and renal disease. Chest x-ray completed showing chronic elevated right diaphragm unchanged. Pulmonary fibrosis. No change compared to old exam mild heart failure is possible. EKG completed showing atrial fibrillation heart rate 84. Troponins elevated at 0.695, 0.5198 0.322. BNP elevated at 4290. Cardiology services have been consulted. Patient started on heparin drip. Patient also started on IV Lasix per cardiology services. Creatinine also elevated 2.16 which is higher then patient's baseline. At that time patient is resting comfortably in bed. Patient reports no improvement with shortness of breath. Patient denies chest pain. Patient denies nausea vomiting or diarrhea. Patient denies any urinary burning or frequency. On 11/25/2018 patient was seen and examined on the telemetry floor she is alert and oriented 3 in no apparent distress she denies any fever or chills no headache or dizziness she is complaining of feeling tremor all over otherwise no complaints no chest pain no palpitation shortness of breath has improved no nausea or vomiting no abdominal pain no diarrhea and no urinary symptoms On 11/26/2018 patient is doing better she is sitting on the edge of the bed she is still complaining of cough and shortness of breath and mild tremor otherwise she denies any complaints there is no fever or chills no headache or dizziness no chest pain no nausea or vomiting no abdominal pain no diarrhea and no urinary symptoms On 11/27/2018 patient is alert and oriented. Patient remains short of breath after activity. Patient remains on IV Lasix. Hemoglobin improving to 9.8. Creatinine decreasing to 2.06 and bun 65. At this time patient denies chest pain or shortness of breath. Patient denies nausea vomiting or diarrhea. Patient denies any urinary burning or frequency. On 11/28/2018 patient's alert and oriented. Patient remains on IV Lasix. Patient denies any chest pain. Patient is still complaining of some shortness of breath. Patient denies nausea vomiting or diarrhea. Patient denies any urinary burning or frequency. Social work will be consulted for ECF placement. Objective - Vital Signs Vital signs: Vital Signs Temp 98.7 F 11/28/18 07:37 Pulse 63 11/28/18 07:37 Resp 18 11/28/18 07:37 BP 107/63 11/28/18 07:37 Pulse Ox 95 11/28/18 07:37 Intake & Output 11/27/18 11/28/18 11/28/18 18:59 06:59 18:59 Intake Total 840 240 Output Total 300 1550 Balance 540 -1550 240 Weight 84.5 kg 83.9 kg Intake: Oral 840 240 Output: Urine 300 1550 Other: Voiding Method Toilet # Voids 1 1 - Exam In general patient is alert and oriented 3 in no apparent distress Head normocephalic and atraumatic Neck supple no JVD no goiter Lungs clear to auscultation bilaterally no wheezing or crackles Heart regular rate and rhythm S1-S2, no rub or gallop Abdomen is soft nontender nondistended positive bowel sounds no hepatosplenomegaly Extremities no edema no cyanosis or clubbing Neuro no gross focal neurological deficit - Labs CBC & Chem 7: 11/28/18 07:25 11/28/18 07:25 Labs: Abnormal Lab Results - Last 24 Hours (Table) 11/26/18 11/28/18 11/28/18 Range/Units 05:42 07:25 07:25 RBC 2.89 L (3.80-5.40) m/uL Hgb 9.4 L (11.4-16.0) gm/dL Hct 29.5 L (34.0-46.0) % MCV 101.9 H (80.0-100.0) fL RDW 17.5 H (11.5-15.5) % Sodium 136 L (137-145) mmol/L Chloride 92 L (98-107) mmol/L Carbon Dioxide 38 H (22-30) mmol/L BUN 59 H (7-17) mg/dL Creatinine 1.79 H (0.52-1.04) mg/dL Glucose 119 H (74-99) mg/dL Iron 28 L (50-170) ug/dL Iron Saturation 9.93 L (12.00-45.00) Total Protein 5.8 L (6.3-8.2) g/dL Assessment and Plan Assessment: 1. Dyspnea related to acute on chronic diastolic congestive heart failure. Chest x-ray completed showing chronic elevated right diaphragm unchanged. Pulmonary fibrosis. No change compared to old exam mild heart failure is possible. BNP elevated at 4290. Cardiology services have been consulted. Patient remains on IV Lasix 2. Mildly elevated troponin most likely representing a type II with no evidence of coronary event event per cardiology. 3. Acute on chronic kidney disease stage III. Ultrasound of kidneys completed showing no evidence of hydronephrosis at this point in time no nephrolithiasis no solid masses are seen. Creatinine trending down to 2.06 and bun 65 4. History of coronary artery disease with coronary artery bypass graft surgery 5. Chronic atrial fibrillation with controlled heart rate. Patient not on anticoagulation due to high risk of bleeding in the past with falls. 6. History of COPD 7. History of frequent falls 8. Increased weakness. Will consult physical therapy 9. Hypothyroidism. Home meds resumed 10. Iron deficiency anemia. Ferrous sulfate resumed. Hemoglobin improving to 9.8 DVT prophylaxis Lovenox. GI prophylaxis Pepcid PT OT consulted Social consulted for possible ECF placement I performed an examination of the patient and discussed their management with the Nurse Practitioner. I have reviewed the Nurse Practitioner's notes and agree with the documented findings and plan of care
[2018-11-28] MEDS: BUDESONIDE 0.5 MG/2 ML NEBU INHALATION SCH ×2 (09:57→19:28)
[2018-11-28] MEDS: FORMOTEROL FUMARATE 20 MCG/2 ML NEBU INHALATION SCH ×2 (09:57→19:40)
[2018-11-28] MEDS: ALBUTEROL NEBULIZED 2.5 MG/3 ML INHALATION PRN ×3 (09:57→16:21)
--- NOTE | 2018-11-28 11:26 | P.PN ---
Subjective Progress Note Date: 11/28/18 This is a pleasant 83-year-old female with a history of chronic persistent atrial fibrillation who is followed by Dr. Parada. She is not on anticoagulation due to GI bleeding. She presented with symptoms of progressive dyspnea and weight gain. She has had prior admissions for similar findings. She's not had any chest discomfort. She does have a history of CAD with prior CABG. She has not noticed any peripheral edema, PND or orthopnea. Echocardiogram from August this year showed a normal LV systolic function with an ejection fraction of 55-60%, severe MR, mild TR and mild pulmonary hypertension. She is currently on Lasix 40 mg IV push every 12 hours. Labs show improved renal function. Overall, she feels her breathing has improved. sodium 135, potassium 4.2, BUN 65 and creatinine 2.0. 11/28/2018 Patient seen and examined this morning, overall states that her breathing is stable, she does feel very sleepy today.blood pressure 108/60 with a heart rate in the 60s, 95% on 3 L of oxygen.hemoglobin 9.4, platelet count 236, sodium 136, potassium 3.6, BUN 59 and creatinine 1.7. Objective - Vital Signs Vital signs: Vital Signs Temp 98.7 F 11/28/18 07:37 Pulse 80 11/28/18 10:18 Resp 18 11/28/18 07:37 BP 107/63 11/28/18 07:37 Pulse Ox 95 11/28/18 07:37 Intake & Output 11/27/18 11/28/18 11/28/18 18:59 06:59 18:59 Intake Total 840 240 Output Total 300 1550 Balance 540 -1550 240 Weight 84.5 kg 83.9 kg Intake: Oral 840 240 Output: Urine 300 1550 Other: Voiding Method Toilet # Voids 1 1 - Exam PHYSICAL EXAMINATION: HEENT: Head is atraumatic, normocephalic. Pupils equal, round. Neck is supple. There is no elevated jugular venous pressure. HEART EXAMINATION: Heart sounds irregularly irregular, S1 and S2 with a systolic ejection murmur. CHEST EXAMINATION: Lungs reveal few faint crackles. No chest wall tenderness is noted on palpation or with deep breathing. ABDOMEN: Soft, nontender. Bowel sounds are heard. No organomegaly noted. EXTREMITIES: 2+ peripheral pulses with no evidence of peripheral edema and no calf tenderness noted. NEUROLOGIC patient is awake, alert and oriented x3. . - Labs CBC & Chem 7: 11/28/18 07:25 11/28/18 07:25 Labs: Abnormal Lab Results - Last 24 Hours (Table) 11/26/18 11/28/18 11/28/18 Range/Units 05:42 07:25 07:25 RBC 2.89 L (3.80-5.40) m/uL Hgb 9.4 L (11.4-16.0) gm/dL Hct 29.5 L (34.0-46.0) % MCV 101.9 H (80.0-100.0) fL RDW 17.5 H (11.5-15.5) % Sodium 136 L (137-145) mmol/L Chloride 92 L (98-107) mmol/L Carbon Dioxide 38 H (22-30) mmol/L BUN 59 H (7-17) mg/dL Creatinine 1.79 H (0.52-1.04) mg/dL Glucose 119 H (74-99) mg/dL Iron 28 L (50-170) ug/dL Iron Saturation 9.93 L (12.00-45.00) Total Protein 5.8 L (6.3-8.2) g/dL Assessment and Plan Plan: Assessment: #1 symptoms of progressive dyspnea with possible element of diastolic congestive heart failure #2 chronic atrial fibrillation, not anticoagulated due to recurrent GI bleeding #3 mild elevation of troponin with no evidence of primary ischemic event #4 CAD with prior CABG #5 hypertension #6 hyperlipidemia #7 obesity #8 renal failure Plan From cardiology's perspective, we'll recommend to discontinue the IV Lasix today and start the patient on 60 mg of by mouth Lasix twice a day. Check lytes BUN and creatinine in the morning. DNP note has been reviewed, I agree with a documented findings and plan of care. Patient was seen and examined.
--- NOTE | 2018-11-28 15:16 | CDI ---
Documentation Clarification Form Date: 11/28/2018 2:55:20 PM From: Mirian Avelar RN CCDS Admit Date: 11/23/2018 7:41:00 PM Patient Name: Gisela Harman Visit Number: [id number] Discharge Date: ATTENTION: The Clinical Documentation Specialists (CDI) and [facility] Coding Staff appreciate your assistance in clarifying documentation. Please respond to the clarification below the line at the bottom and electronically sign. The CDI & [facility] Coding staff will review the response and follow-up if needed. Please note: Queries are made part of the Legal Health Record. If you have any questions, please contact the author of this message via ITS. Dr. Susan Virk Mildly elevated troponin most likely representing a Type II with no evidence of coronary event per cardiology. Per your progress notes. Patient history/risk factors: 83 year old female presents to the ED for evaluation of shortness of breath and lethargy. Clinical indicators: Troponin 0.695; 0.510; 0.322; Treatment: Heparin ivpb , In your professional opinion, can you please specify the diagnosis, if any, indicated by the above clinical indicators and treatment? NSTEM TypeI II Other, please specify Unable to determine (Last Revision: February 2017) Per cardiology mild elevation of troponin with no evidence of primary ischemic event MTDD
--- NOTE | 2018-11-28 15:30 | CDI ---
Documentation Clarification Form Date: 11/28/2018 3:19:31 PM From: Mirian Avelar RN CCDS Admit Date: 11/23/2018 7:41:00 PM Patient Name: Gisela Harman Visit Number: [id number] Discharge Date: ATTENTION: The Clinical Documentation Specialists (CDI) and [facility] Coding Staff appreciate your assistance in clarifying documentation. Please respond to the clarification below the line at the bottom and electronically sign. The CDI & [facility] Coding staff will review the response and follow-up if needed. Please note: Queries are made part of the Legal Health Record. If you have any questions, please contact the author of this message via ITS. Dr. Susan Vrik 83 year old female presents to the ED with increasing shortness of breath. History/Risk Factors: Medical History of CHF; COPD; 3L home Oxygen use Clinical Indicators: The H &P Per patients daughter at bedside patient has had increased oxygen requirements Per ED patient has been using 4L of home oxygen prior to arrival Radiology findings: CXR - There is chronic elevated right diaphragm unchanged. Pulmonary fibrosis.No change compared to old exam.Mild heart failure is possible Vital Signs: Admission 93/50 72 98.4 24 98% 4L nasal cannula Other Clinical Indicators: Treatment: Oxygen 4L on admission to 3L nasal cannula present Consults: Cardiology, Nephrology In your professional opinion, can you please clarify chronic oxygen use diagnosis ? o Chronic Hypoxic Respiratory Failure o Acute on Chronic Respiratory Failure o Other, please specify o Unable to determine (Last Revision: August 2017) Acute on chronic respiratory failure MTDD
[2018-11-28] MEDS: FUROSEMIDE 20 MG TAB PO SCH (15:32)
--- NOTE | 2018-11-28 17:07 | PN ---
PROGRESS NOTE Patient is seen for followup for acute kidney injury which is mainly cardiorenal and volume overload. She has been diuresed. Renal function continues to improve. Lasix is currently at 40 mg IV q.12 hours, which has been switched over to p.o. On examination today, blood pressure 119/57, heart rate 110 per minute. Patient is afebrile. EXAMINATION OF THE HEART: S1 and S2. EXAMINATION OF LUNGS: Bilateral breath sounds are heard. ABDOMEN: Soft, non-tender. Examination of lower extremities shows no significant edema. FACTORY MAINTENANCE TECHNICIAN exam is grossly intact. Labs show sodium 136, potassium 3.6, BUN 59, serum creatinine 1.79, hemoglobin 9.4 g/dL. ASSESSMENT: 1. Acute kidney injury, cardiorenal, currently improving. 2. Chronic kidney disease, NKF stage III. Baseline creatinine 1.4 to 1.2 mg/dL secondary to nephrosclerosis. 3. Congestive heart failure, acute on top of chronic, mainly diastolic. 4. Cardiomyopathy, ejection fraction 55% to 60%, with dilated left atrium. 5. Anemia of chronic disease, maintained on Aranesp. PLAN: Agree with switching to oral diuretics. The patient can be discharged from nephrology standpoint. Follow up in the office in about 1-2 weeks' time. MMODL / IJN: [id number] /
[2018-11-28] MEDS: MONTELUKAST 10 MG TAB PO SCH (20:32)
[2018-11-29] MEDS: HYDROcodone/APAP 5-325MG 1 EACH TAB PO PRN ×2 (04:24→19:32)
[2018-11-29] MEDS: LEVOTHYROXINE 125 MCG TAB PO SCH (06:46)
[2018-11-29] MEDS: MIDODRINE 5 MG TAB PO SCH ×2 (06:46→17:04)
[2018-11-29 06:49] LABS: Anisocytosis Slight; Basophils % (A) 0 %; Eosinophils # (A) 0.3 k/uL (0-0.7); Eosinophils % (A) 4 %; HCT 29.3 % (34.0-46.0); Hypochromasia Slight; Lymphocytes # (A) 1.1 k/uL (1.0-4.8); Lymphocytes % (A) 15 %; MCH 31.8 pg (25.0-35.0); MCHC 30.6 g/dL (31.0-37.0); MCV 103.8 fL (80.0-100.0); Macrocytosis Moderate; Mean Platelet Volume 7.4; Monocytes # (A) 0.4 k/uL (0-1.0); Monocytes % (A) 5 %; Neutrophils # (A) 5.7 k/uL (1.3-7.7); Neutrophils % (A) 75 %; Platelet Count 224 k/uL (150-450); RBC 2.82 m/uL (3.80-5.40); WBC 7.6 k/uL (3.8-10.6)
[2018-11-29 07:05] LABS: Albumin 3.2 g/dL (3.5-5.0); Calcium 9.2 mg/dL (8.4-10.2); Potassium 3.9 mmol/L (3.5-5.1); Total Bilirubin 0.4 mg/dL (0.2-1.3); Total Protein 5.3 g/dL (6.3-8.2)
[2018-11-29] MEDS: FORMOTEROL FUMARATE 20 MCG/2 ML NEBU INHALATION SCH ×2 (07:49→20:39)
[2018-11-29] MEDS: ALBUTEROL NEBULIZED 2.5 MG/3 ML INHALATION PRN ×3 (07:49→20:39)
[2018-11-29] MEDS: BUDESONIDE 0.5 MG/2 ML NEBU INHALATION SCH ×2 (07:49→20:39)
[2018-11-29] MEDS: ISOSORBIDE MONONITRATE ER 30 MG TAB.ER.24H PO SCH (08:57)
[2018-11-29] MEDS: ESCITALOPRAM 10 MG TAB PO SCH (08:57)
[2018-11-29] MEDS: FAMOTIDINE 20 MG TAB PO SCH (08:57)
[2018-11-29] MEDS: FERROUS SULFATE 325 MG TAB PO SCH ×2 (08:57→20:14)
[2018-11-29] MEDS: CHOLECALCIFEROL 1,000 UNIT TAB PO SCH (08:57)
[2018-11-29] MEDS: METOPROLOL TARTRATE 50 MG TAB PO SCH ×2 (08:57→20:14)
[2018-11-29] MEDS: CYANOCOBALAMIN 500 MCG TAB PO SCH (08:57)
[2018-11-29] MEDS: FUROSEMIDE 20 MG TAB PO SCH ×2 (08:57→17:04)
[2018-11-29] MEDS: ALLOPURINOL 100 MG TAB PO SCH (08:57)
[2018-11-29] MEDS: ASPIRIN 81 MG PO SCH (08:57)
[2018-11-29] MEDS: GABAPENTIN 300 MG CAP PO SCH (08:58)
[2018-11-29] MEDS: PRAVASTATIN SODIUM 40 MG TAB PO SCH (08:58)
[2018-11-29] MEDS: ENOXAPARIN 30 MG/0.3 ML SYRINGE SQ SCH (08:58)
--- NOTE | 2018-11-29 09:25 | P.PN ---
Subjective Progress Note Date: 11/29/18 This is an 83-year-old female patient of Dr. Kuhn. Patient presented with complaints of increasing shortness of breath and lethargy. Per patient's daughter at bedside patient has had increased oxygen requirements. Patient has a known past medical history of atrial fibrillation in which she is not on anticoagulationd due to falls, coronary artery disease, chest pain, congestive heart failure, GERD, hyperlipidemia, myocardial infarction, osteoarthritis, pneumonia and renal disease. Chest x-ray completed showing chronic elevated right diaphragm unchanged. Pulmonary fibrosis. No change compared to old exam mild heart failure is possible. EKG completed showing atrial fibrillation heart rate 84. Troponins elevated at 0.695, 0.5198 0.322. BNP elevated at 4290. Cardiology services have been consulted. Patient started on heparin drip. Patient also started on IV Lasix per cardiology services. Creatinine also elevated 2.16 which is higher then patient's baseline. At that time patient is resting comfortably in bed. Patient reports no improvement with shortness of breath. Patient denies chest pain. Patient denies nausea vomiting or diarrhea. Patient denies any urinary burning or frequency. On 11/25/2018 patient was seen and examined on the telemetry floor she is alert and oriented 3 in no apparent distress she denies any fever or chills no headache or dizziness she is complaining of feeling tremor all over otherwise no complaints no chest pain no palpitation shortness of breath has improved no nausea or vomiting no abdominal pain no diarrhea and no urinary symptoms On 11/26/2018 patient is doing better she is sitting on the edge of the bed she is still complaining of cough and shortness of breath and mild tremor otherwise she denies any complaints there is no fever or chills no headache or dizziness no chest pain no nausea or vomiting no abdominal pain no diarrhea and no urinary symptoms On 11/27/2018 patient is alert and oriented. Patient remains short of breath after activity. Patient remains on IV Lasix. Hemoglobin improving to 9.8. Creatinine decreasing to 2.06 and bun 65. At this time patient denies chest pain or shortness of breath. Patient denies nausea vomiting or diarrhea. Patient denies any urinary burning or frequency. On 11/28/2018 patient's alert and oriented. Patient remains on IV Lasix. Patient denies any chest pain. Patient is still complaining of some shortness of breath. Patient denies nausea vomiting or diarrhea. Patient denies any urinary burning or frequency. Social work will be consulted for ECF placement. On 11/29/2018 patient's alert and oriented 3. Patient has been transitioned to oral Lasix per cardiology. Lasix has been increased to 60 mg twice a day for patient's home dose. We'll continue to monitor creatinine and bun. Patient does report some improvement with shortness of breath. Awaiting physical therapy recommendation for discharge planning. At this time patient denies chest pain. Patient denies nausea vomiting or diarrhea. Patient denies any urinary burning or frequency Objective - Vital Signs Vital signs: Vital Signs Temp 97.9 F 11/29/18 04:20 Pulse 88 11/29/18 08:15 Resp 20 11/29/18 04:20 BP 93/54 11/29/18 04:20 Pulse Ox 94 L 11/29/18 04:20 Intake & Output 11/28/18 11/29/18 11/29/18 18:59 06:59 18:59 Intake Total 840 50 180 Output Total 400 100 Balance 440 -50 180 Weight 83.5 kg Intake: Oral 840 50 180 Output: Urine 400 100 Other: # Voids 1 - Exam In general patient is alert and oriented 3 in no apparent distress Head normocephalic and atraumatic Neck supple no JVD no goiter Lungs clear to auscultation bilaterally no wheezing or crackles Heart regular rate and rhythm S1-S2, no rub or gallop Abdomen is soft nontender nondistended positive bowel sounds no hepatosplenomegaly Extremities no edema no cyanosis or clubbing Neuro no gross focal neurological deficit - Labs CBC & Chem 7: 11/29/18 05:38 11/29/18 05:38 Labs: Abnormal Lab Results - Last 24 Hours (Table) 11/29/18 11/29/18 Range/Units 05:38 05:38 RBC 2.82 L (3.80-5.40) m/uL Hgb 9.0 L (11.4-16.0) gm/dL Hct 29.3 L (34.0-46.0) % MCV 103.8 H (80.0-100.0) fL MCHC 30.6 L (31.0-37.0) g/dL RDW 17.0 H (11.5-15.5) % Chloride 92 L (98-107) mmol/L Carbon Dioxide 39 H (22-30) mmol/L BUN 49 H (7-17) mg/dL Creatinine 1.64 H (0.52-1.04) mg/dL Total Protein 5.3 L (6.3-8.2) g/dL Albumin 3.2 L (3.5-5.0) g/dL Assessment and Plan Assessment: 1. Dyspnea related to acute on chronic diastolic congestive heart failure. Chest x-ray completed showing chronic elevated right diaphragm unchanged. Pulmonary fibrosis. No change compared to old exam mild heart failure is possible. BNP elevated at 4290. Cardiology services have been consulted. Brenda ent has been transitioned to oral Lasix. Home dose increased to 60 mg twice a day 2. Acute on chronic respiratory failure 3. Mild elevation in troponin with no evidence of primary ischemic event per cardiology 4. Acute on chronic kidney disease stage III. Ultrasound of kidneys completed showing no evidence of hydronephrosis at this point in time no nephrolithiasis no solid masses are seen. Creatinine trending down to 1.64 and bun 49 5. History of coronary artery disease with coronary artery bypass graft surgery 6. Chronic atrial fibrillation with controlled heart rate. Patient not on anticoagulation due to high risk of bleeding in the past with falls. 7. History of COPD 8. History of frequent falls 9. Increased weakness. Will consult physical therapy 10. Hypothyroidism. Home meds resumed 11. Iron deficiency anemia. Ferrous sulfate resumed. DVT prophylaxis Lovenox. GI prophylaxis Pepcid PT OT consulted Social consulted for possible ECF placement I performed an examination of the patient and discussed their management with the Nurse Practitioner. I have reviewed the Nurse Practitioner's notes and agree with the documented findings and plan of care
--- NOTE | 2018-11-29 10:35 | PN ---
PROGRESS NOTE The patient is seen for followup for chronic kidney disease and acute kidney injury. The patient is being diuresed for volume overload. She has been switched over to p.o. Lasix. Renal function has improved with creatinine down to 1.6 from peak of 2.6 mg/dL. PHYSICAL EXAMINATION: On examination this morning, patient is lying in bed, comfortable, not in any acute distress. Blood pressure is 93/54, heart rate 95 per minute. She is afebrile. EXAMINATION OF THE HEART: S1, S2. EXAMINATION OF THE LUNGS: Bilateral breath sounds are heard. Abdomen is soft, nontender. Examination of lower extremities shows no significant edema. LABS: Labs show sodium 137, potassium 3.9, chloride of 92, BUN 49, serum creatinine 1.64, hemoglobin 9.0. ASSESSMENT: 1. Acute kidney injury mainly cardiorenal, currently improved. Lasix has been switched to p.o. Renal function continues to improve. 2. Chronic kidney disease stage 3, baseline creatinine 1.2 to 1.4 mg/dL secondary to nephrosclerosis. 3. Congestive heart failure, acute on top of chronic diastolic. 4. Cardiomyopathy, ejection fraction 55% to 60%. 5. Dilated left atrium. 6. Anemia of chronic disease maintained on Aranesp. 7. History of chronic obstructive pulmonary disease. 8. Chronic atrial fibrillation with controlled ventricular response. Not on anticoagulation secondary to history of falling episodes. PLAN: Continue p.o. Lasix. Patient is stable for discharge from Nephrology standpoint. MMODL / IJN: [id number] /
--- NOTE | 2018-11-29 12:11 | P.PN ---
Subjective Progress Note Date: 11/29/18 This is a pleasant 83-year-old female with a history of chronic persistent atrial fibrillation who is followed by Dr. Parada. She is not on anticoagulation due to GI bleeding. She presented with symptoms of progressive dyspnea and weight gain. She has had prior admissions for similar findings. She's not had any chest discomfort. She does have a history of CAD with prior CABG. She has not noticed any peripheral edema, PND or orthopnea. Echocardiogram from August this year showed a normal LV systolic function with an ejection fraction of 55-60%, severe MR, mild TR and mild pulmonary hypertension. She is currently on Lasix 40 mg IV push every 12 hours. Labs show improved renal function. Overall, she feels her breathing has improved. sodium 135, potassium 4.2, BUN 65 and creatinine 2.0. 11/28/2018 Patient seen and examined this morning, overall states that her breathing is stable, she does feel very sleepy today.blood pressure 108/60 with a heart rate in the 60s, 95% on 3 L of oxygen.hemoglobin 9.4, platelet count 236, sodium 136, potassium 3.6, BUN 59 and creatinine 1.7. 11/29/2018 Patient seen and examined this morning, sitting up in the chair bedside, breathing is significantly improved overall patient feels well today. Her kidney function continues to improve. We will continue her on the Lasix 60 mg twice a day along with the 3 times a week Zaroxolyn. Objective - Vital Signs Vital signs: Vital Signs Temp 98.7 F 11/29/18 08:00 Pulse 88 11/29/18 11:38 Resp 18 11/29/18 08:00 BP 130/62 11/29/18 08:00 Pulse Ox 92 L 11/29/18 08:00 Intake & Output 11/28/18 11/29/18 11/29/18 18:59 06:59 18:59 Intake Total 840 50 180 Output Total 400 100 Balance 440 -50 180 Weight 83.5 kg Intake: Oral 840 50 180 Output: Urine 400 100 Other: # Voids 1 - Exam PHYSICAL EXAMINATION: HEENT: Head is atraumatic, normocephalic. Pupils equal, round. Neck is supple. There is no elevated jugular venous pressure. HEART EXAMINATION: Heart sounds irregularly irregular, S1 and S2 with a systolic ejection murmur. CHEST EXAMINATION: Lungs reveal few faint crackles. No chest wall tenderness is noted on palpation or with deep breathing. ABDOMEN: Soft, nontender. Bowel sounds are heard. No organomegaly noted. EXTREMITIES: 2+ peripheral pulses with no evidence of peripheral edema and no calf tenderness noted. NEUROLOGIC patient is awake, alert and oriented x3. . - Labs CBC & Chem 7: 11/29/18 05:38 11/29/18 05:38 Labs: Abnormal Lab Results - Last 24 Hours (Table) 11/29/18 11/29/18 Range/Units 05:38 05:38 RBC 2.82 L (3.80-5.40) m/uL Hgb 9.0 L (11.4-16.0) gm/dL Hct 29.3 L (34.0-46.0) % MCV 103.8 H (80.0-100.0) fL MCHC 30.6 L (31.0-37.0) g/dL RDW 17.0 H (11.5-15.5) % Chloride 92 L (98-107) mmol/L Carbon Dioxide 39 H (22-30) mmol/L BUN 49 H (7-17) mg/dL Creatinine 1.64 H (0.52-1.04) mg/dL Total Protein 5.3 L (6.3-8.2) g/dL Albumin 3.2 L (3.5-5.0) g/dL Assessment and Plan Plan: Assessment: #1 symptoms of progressive dyspnea with possible element of diastolic congestive heart failure #2 chronic atrial fibrillation, not anticoagulated due to recurrent GI bleeding #3 mild elevation of troponin with no evidence of primary ischemic event #4 CAD with prior CABG #5 hypertension #6 hyperlipidemia #7 obesity #8 renal failure Plan From cardiology's perspective, we would recommend to continue current dose of by mouth Lasix along with 3 times a week Zaroxolyn. DNP note has been reviewed, I agree with a documented findings and plan of care. Patient was seen and examined. DNP note has been reviewed, I agree with a documented findings and plan of care. Patient was seen and examined.
[2018-11-29] MEDS: METOLAZONE 2.5 MG TAB PO SCH (12:14)
--- NOTE | 2018-11-29 19:19 | CT ---
EXAMINATION TYPE: CT brain wo con DATE OF EXAM: 11/29/2018 COMPARISON: None HISTORY: PEREZ AND DIZZINESS CT DLP: 1086.4 mGycm Automated exposure control for dose reduction was used. FINDINGS: There is cerebral cortical atrophy. There is no mass effect nor midline shift. There is no sign of in tracranial hemorrhage. The calvarium appears intact. Skull base is intact. IMPRESSION: CEREBRAL ATROPHY. NO ACUTE INTRACRANIAL ABNORMALITY.
[2018-11-29] MEDS: MONTELUKAST 10 MG TAB PO SCH (20:14)
[2018-11-30] MEDS: MIDODRINE 5 MG TAB PO SCH ×2 (06:42→15:53)
[2018-11-30] MEDS: LEVOTHYROXINE 125 MCG TAB PO SCH (06:42)
[2018-11-30 07:06] LABS: Anisocytosis Slight; Basophils # (A) 0.1 k/uL (0-0.2); Basophils % (A) 1 %; Eosinophils # (A) 0.3 k/uL (0-0.7); Eosinophils % (A) 4 %; HCT 30.9 % (34.0-46.0); HGB 9.8 gm/dL (11.4-16.0); Hypochromasia Moderate; Lymphocytes # (A) 1.5 k/uL (1.0-4.8); Lymphocytes % (A) 17 %; MCH 32.2 pg (25.0-35.0); MCHC 31.7 g/dL (31.0-37.0); MCV 101.5 fL (80.0-100.0); Macrocytosis Slight; Mean Platelet Volume 8.1; Monocytes # (A) 0.5 k/uL (0-1.0); Monocytes % (A) 5 %; Neutrophils # (A) 6.6 k/uL (1.3-7.7); Neutrophils % (A) 73 %; Platelet Count 255 k/uL (150-450); RBC 3.04 m/uL (3.80-5.40); RDW 17.6 % (11.5-15.5); WBC 9.1 k/uL (3.8-10.6)
[2018-11-30] MEDS: ALBUTEROL NEBULIZED 2.5 MG/3 ML INHALATION PRN (07:12)
[2018-11-30] MEDS: FORMOTEROL FUMARATE 20 MCG/2 ML NEBU INHALATION SCH (07:12)
[2018-11-30] MEDS: BUDESONIDE 0.5 MG/2 ML NEBU INHALATION SCH (07:12)
[2018-11-30 07:22] LABS: Albumin 3.6 g/dL (3.5-5.0); Calcium 9.7 mg/dL (8.4-10.2); Potassium 3.9 mmol/L (3.5-5.1); Total Bilirubin 0.4 mg/dL (0.2-1.3); Total Protein 5.9 g/dL (6.3-8.2)
[2018-11-30] MEDS: CHOLECALCIFEROL 1,000 UNIT TAB PO SCH (08:13)
[2018-11-30] MEDS: ENOXAPARIN 30 MG/0.3 ML SYRINGE SQ SCH (08:13)
[2018-11-30] MEDS: GABAPENTIN 300 MG CAP PO SCH (08:13)
[2018-11-30] MEDS: CYANOCOBALAMIN 500 MCG TAB PO SCH (08:14)
[2018-11-30] MEDS: FAMOTIDINE 20 MG TAB PO SCH (08:14)
[2018-11-30] MEDS: PRAVASTATIN SODIUM 40 MG TAB PO SCH (08:14)
[2018-11-30] MEDS: ESCITALOPRAM 10 MG TAB PO SCH (08:14)
[2018-11-30] MEDS: ALLOPURINOL 100 MG TAB PO SCH (08:14)
[2018-11-30] MEDS: FERROUS SULFATE 325 MG TAB PO SCH (08:14)
[2018-11-30] MEDS: METOPROLOL TARTRATE 50 MG TAB PO SCH (08:14)
[2018-11-30] MEDS: FUROSEMIDE 20 MG TAB PO SCH ×2 (08:14→16:39)
[2018-11-30] MEDS ORDERED: ASPIRIN 81 MG PO SCH (09:00)
--- NOTE | 2018-11-30 10:11 | P.PN ---
Subjective Progress Note Date: 11/30/18 This is a pleasant 83-year-old female with a history of chronic persistent atrial fibrillation who is followed by Dr. Parada. She is not on anticoagulation due to GI bleeding. She presented with symptoms of progressive dyspnea and weight gain. She has had prior admissions for similar findings. She's not had any chest discomfort. She does have a history of CAD with prior CABG. She has not noticed any peripheral edema, PND or orthopnea. Echocardiogram from August this year showed a normal LV systolic function with an ejection fraction of 55-60%, severe MR, mild TR and mild pulmonary hypertension. She is currently on Lasix 40 mg IV push every 12 hours. Labs show improved renal function. Overall, she feels her breathing has improved. sodium 135, potassium 4.2, BUN 65 and creatinine 2.0. 11/28/2018 Patient seen and examined this morning, overall states that her breathing is stable, she does feel very sleepy today.blood pressure 108/60 with a heart rate in the 60s, 95% on 3 L of oxygen.hemoglobin 9.4, platelet count 236, sodium 136, potassium 3.6, BUN 59 and creatinine 1.7. 11/29/2018 Patient seen and examined this morning, sitting up in the chair bedside, breathing is significantly improved overall patient feels well today. Her kidney function continues to improve. We will continue her on the Lasix 60 mg twice a day along with the 3 times a week Zaroxolyn. 11/30/2018 Patient seen and examined this morning, feels well, no complaints. I pressure 110/60 with a heart rate in the 90s, 96% on 3 L of oxygen. White blood cell count 9.1, he will globin 9.8, platelet count 255, sodium 137, potassium 3.9, BUN 50 and creatinine 1.6. Objective - Vital Signs Vital signs: Vital Signs Temp 98.1 F 11/30/18 08:00 Pulse 100 11/30/18 08:00 Resp 20 11/30/18 08:00 BP 111/60 11/30/18 08:00 Pulse Ox 96 11/30/18 08:00 Intake & Output 11/29/18 11/30/18 11/30/18 18:59 06:59 18:59 Intake Total 380 180 240 Output Total 1100 250 Balance -720 -70 240 Weight 83 kg Intake: Oral 380 180 240 Output: Urine 1100 250 Other: Voiding Method Toilet # Voids 1 1 # Bowel Movements 1 - Exam PHYSICAL EXAMINATION: HEENT: Head is atraumatic, normocephalic. Pupils equal, round. Neck is supple. There is no elevated jugular venous pressure. HEART EXAMINATION: Heart sounds irregularly irregular, S1 and S2 with a systolic ejection murmur. CHEST EXAMINATION: Lungs reveal few faint crackles. No chest wall tenderness is noted on palpation or with deep breathing. ABDOMEN: Soft, nontender. Bowel sounds are heard. No organomegaly noted. EXTREMITIES: 2+ peripheral pulses with no evidence of peripheral edema and no calf tenderness noted. NEUROLOGIC patient is awake, alert and oriented x3. . - Labs CBC & Chem 7: 11/30/18 06:00 11/30/18 06:00 Labs: Abnormal Lab Results - Last 24 Hours (Table) 11/30/18 11/30/18 Range/Units 06:00 06:00 RBC 3.04 L (3.80-5.40) m/uL Hgb 9.8 L (11.4-16.0) gm/dL Hct 30.9 L (34.0-46.0) % MCV 101.5 H (80.0-100.0) fL RDW 17.6 H (11.5-15.5) % Chloride 90 L (98-107) mmol/L Carbon Dioxide 39 H (22-30) mmol/L BUN 50 H (7-17) mg/dL Creatinine 1.64 H (0.52-1.04) mg/dL Total Protein 5.9 L (6.3-8.2) g/dL Assessment and Plan Plan: Assessment: #1 symptoms of progressive dyspnea with possible element of diastolic congestive heart failure #2 chronic atrial fibrillation, not anticoagulated due to recurrent GI bleeding #3 mild elevation of troponin with no evidence of primary ischemic event #4 CAD with prior CABG #5 hypertension #6 hyperlipidemia #7 obesity #8 renal failure Plan From cardiology's perspective, we would recommend to continue current dose of by mouth Lasix along with 3 times a week Zaroxolyn. DNP note has been reviewed, I agree with a documented findings and plan of care. Patient was seen and examined.
--- NOTE | 2018-11-30 12:03 | PN ---
PROGRESS NOTE Patient is seen for followup for acute kidney injury and chronic kidney disease. Her renal function is stable. She has been diuresed. Serum creatinine staying about 1.6 g/dL. Patient is maintained on oral Lasix. PHYSICAL EXAMINATION: On examination, blood pressure this morning 111/60, heart rate 100 per minute. She is afebrile. Examination of the heart, S1, S2. Examination of the lungs. bilateral breath sounds. Abdomen is soft, nontender. Examination of the lower extremities shows no significant edema. [employer] exam is grossly intact. LABS: From today show sodium 137, potassium 3.9, BUN 53, and creatinine 1.64, hemoglobin 9.8 g/dL. ASSESSMENT: 1. Acute kidney injury, cardiorenal, currently improved. 2. 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 Baseline creatinine 1.2-1.4 mg/dL. 3. Congestive heart failure, acute on top of chronic, mainly diastolic. 4. Cardiomyopathy, ejection fraction 55%-60% with dilated left atrium. 5. Chronic obstructive pulmonary disease. 6. Chronic atrial fibrillation with controlled ventricular response. 7. History of chronic obstructive pulmonary disease. PLAN: Continue current dose of Lasix. Patient is stable for discharge. Follow up as outpatient for CKD. Repeat labs as outpatient. MMODL / IJN: [id number] /
[2018-11-30] MEDS: ISOSORBIDE MONONITRATE ER 30 MG TAB.ER.24H PO SCH (12:43)
[2018-11-30 12:45] VITALS: RESP 16
--- NOTE | 2018-11-30 13:55 | P.DS ---
Providers Date of admission: 11/23/18 19:41 Expected date of discharge: 11/30/18 Attending physician: Susan Virk Consults: 11/23/18 19:41 Consult Physician Routine Consulting Provider: Kian Calle Consult Reason/Comments: CHF, NSTEMI Do you want consulting provider notified?: Yes 11/24/18 13:02 Consult Physician Routine Consulting Provider: Marta Marshall Consult Reason/Comments: acute kidney injury Do you want consulting provider notified?: Yes Primary care physician: Tiera Kuhn Hospital Course: Discharge diagnosis 1. Dyspnea related to acute on chronic diastolic congestive heart failure. Chest x-ray completed showing chronic elevated right diaphragm unchanged. Pulmonary fibrosis. No change compared to old exam mild heart failure is possible. BNP elevated at 4290. Cardiology services have been consulted. Patient has been transitioned to oral Lasix. Home dose increased to 60 mg twice a day. Patient has been cleared for discharge from cardiology standpoint. Patient will be DC'd on increased dose of Lasix 60 mg twice a day and Zaroxolyn Tuesday 2. Acute on chronic respiratory failure 3. Mild elevation in troponin with no evidence of primary ischemic event per cardiology 4. Acute on chronic kidney disease stage III. Ultrasound of kidneys completed showing no evidence of hydronephrosis at this point in time no nephrolithiasis no solid masses are seen. Creatinine trending down to 1.64 and bun 49. Patient has been cleared for discharge from nephrology standpoint 5. History of coronary artery disease with coronary artery bypass graft surgery 6. Chronic atrial fibrillation with controlled heart rate. Patient not on anticoagulation due to high risk of bleeding in the past with falls. 7. History of COPD 8. History of frequent falls 9. Increased weakness. Will consult physical therapy 10. Hypothyroidism. Home meds resumed 11. Iron deficiency anemia. Ferrous sulfate resumed. 12. Episode of confusion. Head CT completed showing cerebral atrophy. No acute intracranial abnormality. Symptoms have resolved patient returning to baseline Hospital course This is an 83-year-old female patient of Dr. Kuhn. Patient presented with complaints of increasing shortness of breath and lethargy. Per patient's daughter at bedside patient has had increased oxygen requirements. Patient has a known past medical history of atrial fibrillation in which she is not on anticoagulationd due to falls, coronary artery disease, chest pain, congestive heart failure, GERD, hyperlipidemia, myocardial infarction, osteoarthritis, pneumonia and renal disease. Chest x-ray completed showing chronic elevated right diaphragm unchanged. Pulmonary fibrosis. No change compared to old exam mild heart failure is possible. EKG completed showing atrial fibrillation heart rate 84. Troponins elevated at 0.695, 0.5198 0.322. BNP elevated at 4290. Cardiology services have been consulted. Patient started on heparin drip. Patient also started on IV Lasix per cardiology services. Creatinine also elevated 2.16 which is higher then patient's baseline. At that time patient is resting comfortably in bed. Patient reports no improvement with shortness of breath. Patient denies chest pain. Patient denies nausea vomiting or diarrhea. Patient denies any urinary burning or frequency. On 11/25/2018 patient was seen and examined on the telemetry floor she is alert and oriented 3 in no apparent distress she denies any fever or chills no headache or dizziness she is complaining of feeling tremor all over otherwise no complaints no chest pain no palpitation shortness of breath has improved no nausea or vomiting no abdominal pain no diarrhea and no urinary symptoms On 11/26/2018 patient is doing better she is sitting on the edge of the bed she is still complaining of cough and shortness of breath and mild tremor otherwise she denies any complaints there is no fever or chills no headache or dizziness no chest pain no nausea or vomiting no abdominal pain no diarrhea and no urinary symptoms On 11/27/2018 patient is alert and oriented. Patient remains short of breath after activity. Patient remains on IV Lasix. Hemoglobin improving to 9.8. Creatinine decreasing to 2.06 and bun 65. At this time patient denies chest pain or shortness of breath. Patient denies nausea vomiting or diarrhea. Patient denies any urinary burning or frequency. On 11/28/2018 patient's alert and oriented. Patient remains on IV Lasix. Patient denies any chest pain. Patient is still complaining of some shortness of breath. Patient denies nausea vomiting or diarrhea. Patient denies any urinary burning or frequency. Social work will be consulted for ECF placement. On 11/29/2018 patient's alert and oriented 3. Patient has been transitioned to oral Lasix per cardiology. Lasix has been increased to 60 mg twice a day for patient's home dose. We'll continue to monitor creatinine and bun. Patient does report some improvement with shortness of breath. Awaiting physical therapy recommendation for discharge planning. At this time patient denies chest pain. Patient denies nausea vomiting or diarrhea. Patient denies any urinary burning or frequency On 11/30/2018 patient's alert and oriented 3. Patient has been maintained on oral Lasix 60 mg twice a day per cardiology. Bun and creatinine have remained stable. Patient has been cleared for discharge from cardiology and nephrology standpoint. Patient is alert and oriented 3. At this time patient denies chest pain or shortness of breath. Patient denies nausea vomiting or diarrhea. Patient denies any urinary burning or frequency. Patient is eager to go home. Patient will be returning home with home health care services. I performed an examination of the patient and discussed their management with the Nurse Practitioner. I have reviewed the Nurse Practitioner's notes and agree with the documented findings and plan of care Patient Condition at Discharge: Stable Plan - Discharge Summary Discharge Rx Participant: No New Discharge Prescriptions: New Darbepoetin Yosi [Aranesp] 60 mcg SQ Q7D syringe Furosemide [Lasix] 60 mg PO BID@0900,1600 30 Days #60 tab Midodrine [ProAmatine] 5 mg PO AC-BID 30 Days #60 tab Continue Cyanocobalamin [Vitamin B-12] 500 mcg PO DAILY Aspirin [Adult Low Dose Aspirin EC] 81 mg PO BID Albuterol Nebulized [Ventolin Nebulized] 2.5 mg INHALATION RT-QID PRN PRN Reason: Cough Allopurinol [Zyloprim] 300 mg PO DAILY ALPRAZolam [Xanax] 0.25 mg PO Q6H PRN PRN Reason: Anxiety Cholecalciferol [Vitamin D3 (25 Mcg = 1000 Iu)] 1,000 unit PO DAILY Escitalopram [Lexapro] 10 mg PO DAILY Nitroglycerin Sl Tabs [Nitrostat] 0.4 mg SUBLINGUAL Q5M PRN PRN Reason: Chest Pain Montelukast [Singulair] 10 mg PO HS #30 tab Levothyroxine Sodium [Synthroid] 125 mcg PO DAILY@0630 30 Days #30 tab Isosorbide Mononitrate [Isosorbide Mononitrate ER] 30 mg PO DAILY Metolazone [Zaroxolyn] 2.5 mg PO MOWEFR Formoterol Fumarate [Perforomist] 20 mcg INHALATION RT-BID Ferrous Sulfate [Iron (65 MG Elemental)] 325 mg PO BID 30 Days #60 tab Metoprolol Tartrate [Lopressor] 100 mg PO BID 30 Days #60 tab Ranitidine HCl [Zantac] 150 mg PO BID Gabapentin [Neurontin] 300 mg PO DAILY Pravastatin Sodium [Pravachol] 40 mg PO DAILY Budesonide [Pulmicort] 0.5 mg INHALATION RT-BID Discontinued Furosemide [Lasix] 40 mg PO BID@0900,1600 30 Days #60 tab Discharge Medication List Cyanocobalamin [Vitamin B-12] 500 mcg PO DAILY 10/03/13 [History] Aspirin [Adult Low Dose Aspirin EC] 81 mg PO BID 01/10/16 [History] ALPRAZolam [Xanax] 0.25 mg PO Q6H PRN 07/20/18 [History] Albuterol Nebulized [Ventolin Nebulized] 2.5 mg INHALATION RT-QID PRN 07/20/18 [History] Allopurinol [Zyloprim] 300 mg PO DAILY 07/20/18 [History] Cholecalciferol [Vitamin D3 (25 Mcg = 1000 Iu)] 1,000 unit PO DAILY 07/20/18 [History] Escitalopram [Lexapro] 10 mg PO DAILY 07/20/18 [History] Nitroglycerin Sl Tabs [Nitrostat] 0.4 mg SUBLINGUAL Q5M PRN 07/20/18 [History] Montelukast [Singulair] 10 mg PO HS #30 tab 09/18/18 [Rx] Levothyroxine Sodium [Synthroid] 125 mcg PO DAILY@0630 30 Days #30 tab 10/06/18 [Rx] Formoterol Fumarate [Perforomist] 20 mcg INHALATION RT-BID 10/22/18 [History] Isosorbide Mononitrate [Isosorbide Mononitrate ER] 30 mg PO DAILY 10/22/18 [History] Metolazone [Zaroxolyn] 2.5 mg PO MOWEFR 10/22/18 [History] Ferrous Sulfate [Iron (65 MG Elemental)] 325 mg PO BID 30 Days #60 tab 10/25/18 [Rx] Metoprolol Tartrate [Lopressor] 100 mg PO BID 30 Days #60 tab 10/25/18 [Rx] Budesonide [Pulmicort] 0.5 mg INHALATION RT-BID 11/23/18 [History] Gabapentin [Neurontin] 300 mg PO DAILY 11/23/18 [History] Pravastatin Sodium [Pravachol] 40 mg PO DAILY 11/23/18 [History] Ranitidine HCl [Zantac] 150 mg PO BID 11/23/18 [History] Darbepoetin Yosi [Aranesp] 60 mcg SQ Q7D syringe 11/30/18 [Rx] Furosemide [Lasix] 60 mg PO BID@0900,1600 30 Days #60 tab 11/30/18 [Rx] Midodrine [ProAmatine] 5 mg PO AC-BID 30 Days #60 tab 11/30/18 [Rx] Follow up Appointment(s)/Referral(s): Rashawn Parada MD [STAFF PHYSICIAN] - 2 Weeks () Marta Marshall MD [STAFF PHYSICIAN] - 1 Week Tiera Kuhn MD [Primary Care Provider] - 3 Days () [facility], [NON-STAFF] - Ambulatory/Diagnostic Orders: Complete Blood Count w/diff [LAB.AMB] Time Frame: 3 Days, Location: None Selected Comprehensive Metabolic Panel [LAB.AMB] Time Frame: 3 Days, Location: None Selected Patient Instructions/Handouts: Heart Failure (DC), Heart Healthy Diet (DC) Activity/Diet/Wound Care/Special Instructions: Diet heart healthy Activity as tolerated Discharge Disposition: HOME WITH HOME HEALTH SERVICES
[2018-11-30 15:31] VITALS: BP 100/61; PULSE 107; TEMP 98
[2018-11-30] MEDS: HYDROcodone/APAP 5-325MG 1 EACH TAB PO PRN (15:52)
== END 2018-11-30 17:40 | disposition home health service (06) | DRG 291 ==
LOC: EC 16:53 → 3SCARD 19:41
PROVIDERS: ADMIT Internal Medicine; ATTEND Internal Medicine
DX: I13.0 Hypertensive heart and chronic kidney disease with heart failure and stage 1 through stage 4 chronic kidney disease, or unspecified chronic kidney disease (principal); I50.33 Acute on chronic diastolic (congestive) heart failure; J96.20 Acute and chronic respiratory failure, unspecified whether with hypoxia or hypercapnia; N17.9 Acute kidney failure, unspecified; I95.9 Hypotension, unspecified; I27.20 Pulmonary hypertension, unspecified; J44.9 Chronic obstructive pulmonary disease, unspecified; J84.10 Pulmonary fibrosis, unspecified; G62.9 Polyneuropathy, unspecified; N28.1 Cyst of kidney, acquired; I08.1 Rheumatic disorders of both mitral and tricuspid valves; D63.8 Anemia in other chronic diseases classified elsewhere; I42.9 Cardiomyopathy, unspecified; I48.2 Chronic atrial fibrillation; N18.3 Chronic kidney disease, stage 3 (moderate); D50.9 Iron deficiency anemia, unspecified; E03.9 Hypothyroidism, unspecified; E66.9 Obesity, unspecified; E78.5 Hyperlipidemia, unspecified; F32.9 Major depressive disorder, single episode, unspecified; F41.9 Anxiety disorder, unspecified; I25.10 Atherosclerotic heart disease of native coronary artery without angina pectoris; I25.2 Old myocardial infarction; K21.9 Gastro-esophageal reflux disease without esophagitis; M10.9 Gout, unspecified; M19.90 Unspecified osteoarthritis, unspecified site; M54.41 Lumbago with sciatica, right side; M54.42 Lumbago with sciatica, left side; R41.0 Disorientation, unspecified; R77.9 Abnormality of plasma protein, unspecified; Z79.82 Long term (current) use of aspirin; Z79.890 Hormone replacement therapy; Z79.899 Other long term (current) drug therapy; Z88.8 Allergy status to other drugs, medicaments and biological substances; Z99.81 Dependence on supplemental oxygen; Z95.5 Presence of coronary angioplasty implant and graft; Z95.1 Presence of aortocoronary bypass graft; Z91.81 History of falling; Z90.710 Acquired absence of both cervix and uterus; Z68.31 Body mass index [BMI] 31.0-31.9, adult; Z87.01 Personal history of pneumonia (recurrent); Z90.49 Acquired absence of other specified parts of digestive tract; Z86.010 Personal history of colon polyps; Z98.42 Cataract extraction status, left eye; Z98.41 Cataract extraction status, right eye; Z96.1 Presence of intraocular lens
CPT/HCPCS: 36415; 70450; 71046; 76770; 80053; 81001; 81003; 83540; 83550; 83880; 84484; 85025; 85610; 85730; 93005; 94640; 94760; 96365; 96366; 96375; 96376; 99291

== ENCOUNTER 2018-12-08 05:32 | Emergency (ER) | payer MEDICARE, BC ==
[2018-12-08 05:43] VITALS: TEMP 98.6
[2018-12-08 06:14] LABS: Anisocytosis Slight; Basophils # (A) 0.1 k/uL (0-0.2); Basophils % (A) 1 %; Eosinophils # (A) 0.4 k/uL (0-0.7); Eosinophils % (A) 4 %; HCT 32.1 % (34.0-46.0); HGB 10.1 gm/dL (11.4-16.0); Hypochromasia Moderate; Lymphocytes # (A) 1.4 k/uL (1.0-4.8); Lymphocytes % (A) 14 %; MCH 31.5 pg (25.0-35.0); MCHC 31.4 g/dL (31.0-37.0); Macrocytosis Slight; Mean Platelet Volume 7.3; Monocytes # (A) 0.5 k/uL (0-1.0); Monocytes % (A) 4 %; Neutrophils # (A) 7.9 k/uL (1.3-7.7); Neutrophils % (A) 76 %; Platelet Count 261 k/uL (150-450); RBC 3.21 m/uL (3.80-5.40); RDW 17.1 % (11.5-15.5); WBC 10.4 k/uL (3.8-10.6)
[2018-12-08 06:24] LABS: Albumin 3.8 g/dL (3.5-5.0); Calcium 9.5 mg/dL (8.4-10.2); INR 0.9 (<1.2); Magnesium 2.3 mg/dL (1.6-2.3); Partial Thromboplastin Time 22.8 sec (22.0-30.0); Potassium 3.2 mmol/L (3.5-5.1); Prothrombin Time 9.6 sec (9.0-12.0); Total Bilirubin 0.4 mg/dL (0.2-1.3); Total Protein 6.1 g/dL (6.3-8.2)
--- NOTE | 2018-12-08 06:46 | ED ---
Weakness HPI - General Source: EMS Mode of arrival: EMS Limitations: no limitations - History of Present Illness MD Complaint: generalized weakness -: hour(s) Location: generalized Improves with: none Worsens with: none Associated Symptoms: other ("Feeling shaky") <Hugh Elizabeth - Last Filed: 12/08/18 06:57> <Jeancarlos Caldwell - Last Filed: 12/08/18 08:17> - General Chief complaint: Weakness Stated complaint: Tremors Time Seen by Provider: 12/08/18 05:48 - History of Present Illness Initial comments: This patient is an 83-year-old woman who presents with the complaint that she is feeling generalized weakness and also feeling shaky. She states the symptoms have come on in the middle of the night tonight. She had been in bed and woke up and was feeling which she was describing his shaky. She denies having pain or shortness of breath. Denies fever or chills. Remainder of review of systems unremarkable. (Hugh Elizabeth) - Related Data Home Medications Medication Instructions Recorded Confirmed Cyanocobalamin [Vitamin B-12] 500 mcg PO DAILY 10/03/13 11/23/18 Aspirin [Adult Low Dose Aspirin EC] 81 mg PO BID 01/10/16 11/23/18 ALPRAZolam [Xanax] 0.25 mg PO Q6H PRN 07/20/18 11/23/18 Albuterol Nebulized [Ventolin 2.5 mg INHALATION RT-QID PRN 07/20/18 11/23/18 Nebulized] Allopurinol [Zyloprim] 300 mg PO DAILY 07/20/18 11/23/18 Cholecalciferol [Vitamin D3 (25 1,000 unit PO DAILY 07/20/18 11/23/18 Mcg = 1000 Iu)] Escitalopram [Lexapro] 10 mg PO DAILY 07/20/18 11/23/18 Nitroglycerin Sl Tabs [Nitrostat] 0.4 mg SUBLINGUAL Q5M PRN 07/20/18 11/23/18 Formoterol Fumarate [Perforomist] 20 mcg INHALATION RT-BID 10/22/18 11/23/18 Isosorbide Mononitrate [Isosorbide 30 mg PO DAILY 10/22/18 11/23/18 Mononitrate ER] Metolazone [Zaroxolyn] 2.5 mg PO MOWEFR 10/22/18 11/23/18 Budesonide [Pulmicort] 0.5 mg INHALATION RT-BID 11/23/18 11/23/18 Gabapentin [Neurontin] 300 mg PO DAILY 11/23/18 11/23/18 Pravastatin Sodium [Pravachol] 40 mg PO DAILY 11/23/18 11/23/18 Ranitidine HCl [Zantac] 150 mg PO BID 11/23/18 11/23/18 Previous Rx's Medication Instructions Recorded Montelukast [Singulair] 10 mg PO HS #30 tab 09/18/18 Levothyroxine Sodium [Synthroid] 125 mcg PO DAILY@0630 30 Days #30 10/06/18 tab Ferrous Sulfate [Iron (65 MG 325 mg PO BID 30 Days #60 tab 10/25/18 Elemental)] Metoprolol Tartrate [Lopressor] 100 mg PO BID 30 Days #60 tab 10/25/18 Darbepoetin Yosi [Aranesp] 60 mcg SQ Q7D syringe 11/30/18 Furosemide [Lasix] 60 mg PO BID@0900,1600 30 Days #60 11/30/18 tab Midodrine [ProAmatine] 5 mg PO AC-BID 30 Days #60 tab 11/30/18 Allergies Allergy/AdvReac Type Severity Reaction Status Date / Time [id number] Reductase AdvReac Unknown Verified 12/08/18 05:44 Inhibitor Review of Systems ROS Other: All systems not noted in ROS Statement are negative. Constitutional: Denies: fever, chills Respiratory: Denies: cough, dyspnea Cardiovascular: Denies: chest pain, palpitations, syncope Gastrointestinal: Denies: abdominal pain, nausea, vomiting, diarrhea Musculoskeletal: Denies: back pain Skin: Denies: rash Neurological: Reports: other (Shaky). Denies: headache, weakness, numbness, paresthesias <Hugh Elizabeth - Last Filed: 12/08/18 06:57> ROS Other: All systems not noted in ROS Statement are negative. <Jeancarlos Caldwell - Last Filed: 12/08/18 08:17> ROS Statement: Those systems with pertinent positive or pertinent negative responses have been documented in the HPI. Past Medical History Past Medical History: Atrial Fibrillation, Coronary Artery Disease (CAD), Chest Pain / Angina, Heart Failure, COPD, GERD/Reflux, Hyperlipidemia, Myocardial Infarction (VT), Osteoarthritis (OA), Pneumonia, Renal Disease Additional Past Medical History / Comment(s): Pt recently admitted to [facility] on 07/21/18 with dyspnea r/t CHF/cardiomyopathy and acute on chronic kidney disease. Other hx: Chronic Afib, neuropathy bilateral feet, gout bilateral feet, falls, occasional low back pain with bilateral sciatica with L side worse, hypothyroid, epistaxis with blood loss anemia, recent memory impairment Last Myocardial Infarction Date:: 2012 History of Any Multi-Drug Resistant Organisms: None Reported Past Surgical History: Appendectomy, Back Surgery, Cardiac Ablation, Cholecystectomy, Coronary Bypass/CABG, Heart Catheterization With Stent, Hysterectomy Additional Past Surgical History / Comment(s): LOW, 1993 CABG-4 vessels, nasal cauterization, colonoscopy with benign polypectomy, D&C, bilateral cataract removals, R breast benign bx, lumbar laminectomy. Past Anesthesia/Blood Transfusion Reactions: Previous Problems w/ Anesthesia Additional Past Anesthesia/Blood Transfusion Reaction / Comment(s): Pt received blood 02/07/12 without reaction after epistaxis. Date of Last Stent Placement:: 03/2013 Past Psychological History: Anxiety, Depression Smoking Status: Former smoker Past Alcohol Use History: Occasional Past Drug Use History: None Reported - Past Family History Mother Additional Family Medical History / Comment(s): Mother was a heavy drinker. She lived to be in her 80's Father Family Medical History: No Reported History Additional Family Medical History / Comment(s): Father lived to be in his 80's <BertramcliffordHugh - Last Filed: 12/08/18 06:57> General Exam Limitations: no limitations General appearance: alert, in no apparent distress, other (The patient is having occasional myoclonic jerks during the exam) Head exam: Present: atraumatic, normocephalic Eye exam: Present: normal appearance. Absent: scleral icterus, conjunctival injection ENT exam: Present: normal oropharynx Neck exam: Present: normal inspection, full ROM. Absent: tenderness, meningismus Respiratory exam: Present: normal lung sounds bilaterally. Absent: respiratory distress, wheezes, rales, rhonchi Cardiovascular Exam: Present: regular rate, normal rhythm, normal heart sounds. Absent: systolic murmur, diastolic murmur, rubs, gallop GI/Abdominal exam: Present: soft. Absent: distended, tenderness, guarding, rebound Extremities exam: Present: normal inspection, normal capillary refill. Absent: pedal edema, calf tenderness Back exam: Absent: CVA tenderness (R), CVA tenderness (L) Neurological exam: Present: alert, CN II-XII intact, other (Myoclonic jerks). Absent: motor sensory deficit Skin exam: Present: warm, dry, intact, normal color. Absent: rash <Hugh Elizabeth - Last Filed: 12/08/18 06:57> Course Vital Signs 12/08/18 12/08/18 12/08/18 05:38 06:30 07:00 Temperature 98.6 F Pulse Rate 94 75 80 Respiratory 20 17 21 Rate Blood Pressure 111/59 107/63 102/52 O2 Sat by Pulse 96 96 96 Oximetry EKG Findings - EKG Results: EKG: interpreted by ERMD EKG shows: atrial fibrillation (Rate approximate 120 bpm) - Blocks, [place], Hypertrophy, ST Abn: AV and intraventricular conduction: right bundle branch block (fixed/intermittent, complete/incomplete) (Complete) QRS axis and voltage: right axis deviation (+90 to +180) Repolarization changes or abnormalities: nonspecific abnormality, ST segment, and/or T wave <Hugh Elizabeth - Last Filed: 12/08/18 06:57> Medical Decision Making - Lab Data Result diagrams: 12/08/18 05:45 12/08/18 05:45 <Hugh Elizabeth - Last Filed: 12/08/18 06:57> - Lab Data Result diagrams: 12/08/18 05:45 12/08/18 05:45 - Radiology Data Radiology results: report reviewed (Computed tomography scan of the brain does not reveal any acute abnormality. There is atrophy.) <Jeancarlos Caldwell - Last Filed: 12/08/18 08:17> - Medical Decision Making Patient reevaluated and resting comfortably in bed. No focal deficits on exam. Patient is symptom-free at this time and requesting discharge. Patient updated on results and need for follow-up. (Jeancarlos Caldwell) - Lab Data Lab Results 12/08/18 12/08/18 12/08/18 Range/Units 05:45 05:45 05:45 WBC 10.4 (3.8-10.6) k/uL RBC 3.21 L (3.80-5.40) m/uL Hgb 10.1 L (11.4-16.0) gm/dL Hct 32.1 L (34.0-46.0) % MCV 100.0 (80.0-100.0) fL MCH 31.5 (25.0-35.0) pg MCHC 31.4 (31.0-37.0) g/dL RDW 17.1 H (11.5-15.5) % Plt Count 261 (150-450) k/uL Neutrophils % 76 % Lymphocytes % 14 % Monocytes % 4 % Eosinophils % 4 % Basophils % 1 % Neutrophils # 7.9 H (1.3-7.7) k/uL Lymphocytes # 1.4 (1.0-4.8) k/uL Monocytes # 0.5 (0-1.0) k/uL Eosinophils # 0.4 (0-0.7) k/uL Basophils # 0.1 (0-0.2) k/uL Hypochromasia Moderate Anisocytosis Slight Macrocytosis Slight PT 9.6 (9.0-12.0) sec INR 0.9 (<1.2) APTT 22.8 (22.0-30.0) sec Sodium 138 (137-145) mmol/L Potassium 3.2 L (3.5-5.1) mmol/L Chloride 92 L (98-107) mmol/L Carbon Dioxide 38 H (22-30) mmol/L Anion Gap 8 mmol/L BUN 66 H (7-17) mg/dL Creatinine 1.94 H (0.52-1.04) mg/dL Est GFR (CKD-EPI)AfAm 27 (>60 ml/min/1.73 sqM) Est GFR (CKD-EPI)NonAf 23 (>60 ml/min/1.73 sqM) Glucose 104 H (74-99) mg/dL Plasma Lactic Acid Prem (0.7-2.0) mmol/L Calcium 9.5 (8.4-10.2) mg/dL Magnesium 2.3 (1.6-2.3) mg/dL Total Bilirubin 0.4 (0.2-1.3) mg/dL AST 19 (14-36) U/L ALT 13 (9-52) U/L Alkaline Phosphatase 100 (38-126) U/L Troponin I (0.000-0.034) ng/mL Total Protein 6.1 L (6.3-8.2) g/dL Albumin 3.8 (3.5-5.0) g/dL 12/08/18 12/08/18 Range/Units 05:45 06:18 WBC (3.8-10.6) k/uL RBC (3.80-5.40) m/uL Hgb (11.4-16.0) gm/dL Hct (34.0-46.0) % MCV (80.0-100.0) fL MCH (25.0-35.0) pg MCHC (31.0-37.0) g/dL RDW (11.5-15.5) % Plt Count (150-450) k/uL Neutrophils % % Lymphocytes % % Monocytes % % Eosinophils % % Basophils % % Neutrophils # (1.3-7.7) k/uL Lymphocytes # (1.0-4.8) k/uL Monocytes # (0-1.0) k/uL Eosinophils # (0-0.7) k/uL Basophils # (0-0.2) k/uL Hypochromasia Anisocytosis Macrocytosis PT (9.0-12.0) sec INR (<1.2) APTT (22.0-30.0) sec Sodium (137-145) mmol/L Potassium (3.5-5.1) mmol/L Chloride (98-107) mmol/L Carbon Dioxide (22-30) mmol/L Anion Gap mmol/L BUN (7-17) mg/dL Creatinine (0.52-1.04) mg/dL Est GFR (CKD-EPI)AfAm (>60 ml/min/1.73 sqM) Est GFR (CKD-EPI)NonAf (>60 ml/min/1.73 sqM) Glucose (74-99) mg/dL Plasma Lactic Acid Prem 1.5 (0.7-2.0) mmol/L Calcium (8.4-10.2) mg/dL Magnesium (1.6-2.3) mg/dL Total Bilirubin (0.2-1.3) mg/dL AST (14-36) U/L ALT (9-52) U/L Alkaline Phosphatase (38-126) U/L Troponin I 0.028 (0.000-0.034) ng/mL Total Protein (6.3-8.2) g/dL Albumin (3.5-5.0) g/dL Disposition <Hugh Elizabeth - Last Filed: 12/08/18 06:57> Is patient prescribed a controlled substance at d/c from ED?: No Time of Disposition: 08:17 <Jeancarlos Caldwell - Last Filed: 12/08/18 08:17> Clinical Impression: Hypokalemia, Tremor Disposition: HOME SELF-CARE Condition: Stable Instructions (If sedation given, give patient instructions): Tremors (ED), Hypokalemia (ED) Additional Instructions: Please follow-up to primary care physician in the next day or 2 for recheck. Return for weakness or confusion, uncontrolled tremors, worsening symptoms or other concerns. Referrals: Tiera Kuhn MD [Primary Care Provider] - 1-2 days
[2018-12-08] MEDS ORDERED: POTASSIUM BICARBONATE/CIT AC 20 MEQ TABLET.EFF PO ONE (06:51)
[2018-12-08 07:08] VITALS: BP 102/52; PULSE 80; RESP 21
--- NOTE | 2018-12-08 07:08 | CT ---
EXAMINATION TYPE: CT brain wo con DATE OF EXAM: 12/08/2018 COMPARISON: Prior CT 11/29/2018 HISTORY: Tremors and weakness CT DLP: 1079.4 mGycm Automated exposure control for dose reduction was used. Helical acquisition through the brain. FINDINGS: Cerebral vascular calcifications are present. There is no evident hemorrhage or hydrocephalus. Cortic al atrophy is likely age-related. Periventricular white matter shows patchy low attenuation as on pre vious. Calvarium is intact. IMPRESSION: NO ACUTE ABNORMALITY. AGE-RELATED CHANGES OF ATROPHY AND PROBABLE CHRONIC SMALL VESSEL ISCHEMIA.
[2018-12-08] MEDS ORDERED: LORazepam 2 MG/ML INJ IV STA (07:10)
[2018-12-08] MEDS ORDERED: IBUPROFEN 400 MG TAB PO STA (09:09)
== END 2018-12-08 10:00 | disposition home or self-care (01) ==
LOC: EC 05:32
DX: E87.6 Hypokalemia (principal); R25.1 Tremor, unspecified; I48.2 Chronic atrial fibrillation; I25.119 Atherosclerotic heart disease of native coronary artery with unspecified angina pectoris; I25.2 Old myocardial infarction; J44.9 Chronic obstructive pulmonary disease, unspecified; K21.9 Gastro-esophageal reflux disease without esophagitis; E78.5 Hyperlipidemia, unspecified; N18.9 Chronic kidney disease, unspecified; I50.9 Heart failure, unspecified; F32.9 Major depressive disorder, single episode, unspecified; F41.9 Anxiety disorder, unspecified; Z79.82 Long term (current) use of aspirin; Z79.51 Long term (current) use of inhaled steroids; Z79.899 Other long term (current) drug therapy; Z88.8 Allergy status to other drugs, medicaments and biological substances; Z87.891 Personal history of nicotine dependence; Z95.1 Presence of aortocoronary bypass graft; Z95.5 Presence of coronary angioplasty implant and graft
CPT/HCPCS: 36415; 93005; 80053; 83605; 83735; 84484; 85025; 85610; 85730; 70450; 99285; 96374; J2060

== ENCOUNTER 2019-03-02 12:17 | Inpatient (IN) | payer MEDICARE, BC ==
[2019-03-02] MEDS ORDERED: SODIUM CHLORIDE 0.9% 1,000 ML IV ONE (12:55)
--- NOTE | 2019-03-02 13:05 | ED ---
General Adult HPI - General Chief complaint: Altered Mental Status Stated complaint: ams Time Seen by Provider: 03/02/19 12:32 Source: patient, family, RN notes reviewed Mode of arrival: ambulatory Limitations: no limitations - History of Present Illness Initial comments: Patient is a pleasant 83-year-old female presenting to the emergency department with with concerns for urinary tract infection. Patient went to her doctor over a week ago and had urine sample showing concern for urinary tract infection. Patient was placed on antibiotics for 5 days. Patient seemed to improve however symptoms have started to worsen. Symptoms include shaking and hallucinations. Patient has seen a little girl standing on a table that was not there is another similar type hallucinations. Patient also at times has some nonspecific confusion. Patient denies any dysuria. No abdominal pain. No flank pain or back pain. No nausea vomiting. Patient is still tolerating fluids however decreased solid food intake recently. Patient did have shaking once previously with abnormal potassium levels. - Related Data Home Medications Medication Instructions Recorded Confirmed Cyanocobalamin [Vitamin B-12] 500 mcg PO DAILY 10/03/13 03/02/19 Aspirin [Adult Low Dose Aspirin EC] 81 mg PO BID 01/10/16 03/02/19 ALPRAZolam [Xanax] 0.25 mg PO Q6H PRN 07/20/18 03/02/19 Allopurinol [Zyloprim] 300 mg PO DAILY 07/20/18 03/02/19 Escitalopram [Lexapro] 10 mg PO DAILY 07/20/18 03/02/19 Nitroglycerin Sl Tabs [Nitrostat] 0.4 mg SUBLINGUAL Q5M PRN 07/20/18 03/02/19 Isosorbide Mononitrate [Isosorbide 30 mg PO DAILY 10/22/18 03/02/19 Mononitrate ER] Metolazone [Zaroxolyn] 2.5 mg PO MOWEFR 10/22/18 03/02/19 Pravastatin Sodium [Pravachol] 40 mg PO DAILY 11/23/18 03/02/19 Ranitidine HCl [Zantac] 150 mg PO BID 11/23/18 03/02/19 Digoxin [Lanoxin] 62.5 mcg PO DAILY 03/02/19 03/02/19 Ferrous Sulfate [Iron (65 MG 325 mg PO DAILY 03/02/19 03/02/19 Elemental)] Metoprolol Tartrate [Lopressor] 50 mg PO TID 03/02/19 03/02/19 [place]-3 Fatty Acids/Fish Oil [Fish 1 cap PO DAILY 03/02/19 03/02/19 Oil 1,000 mg Softgel] Ubidecarenone [Co Q-10] 100 mg PO DAILY 03/02/19 03/02/19 Previous Rx's Medication Instructions Recorded Montelukast [Singulair] 10 mg PO HS #30 tab 09/18/18 Levothyroxine Sodium [Synthroid] 125 mcg PO DAILY@0630 30 Days #30 10/06/18 tab Furosemide [Lasix] 60 mg PO BID@0900,1600 30 Days #60 11/30/18 tab Allergies Allergy/AdvReac Type Severity Reaction Status Date / Time [id number]-[id number] Reductase AdvReac Unknown Verified 03/02/19 13:31 Inhibitor Review of Systems ROS Statement: Those systems with pertinent positive or pertinent negative responses have been documented in the HPI. ROS Other: All systems not noted in ROS Statement are negative. Constitutional: Denies: fever Eyes: Denies: eye pain ENT: Denies: ear pain Respiratory: Reports: cough. Denies: dyspnea Cardiovascular: Denies: chest pain Endocrine: Reports: fatigue Gastrointestinal: Denies: abdominal pain Genitourinary: Denies: dysuria, hematuria Musculoskeletal: Denies: back pain Skin: Denies: rash Neurological: Denies: headache Past Medical History Past Medical History: Atrial Fibrillation, Coronary Artery Disease (CAD), Chest Pain / Angina, Heart Failure, COPD, GERD/Reflux, Hyperlipidemia, Myocardial Infarction ([place]), Osteoarthritis (OA), Pneumonia, Renal Disease Additional Past Medical History / Comment(s): Pt recently admitted to [facility] on 07/21/18 with dyspnea r/t CHF/cardiomyopathy and acute on chronic kidney disease. Other hx: Chronic Afib, neuropathy bilateral feet, gout bilateral feet, falls, occasional low back pain with bilateral sciatica with L side worse, hypothyroid, epistaxis with blood loss anemia, recent memory impairment Last Myocardial Infarction Date:: 2012 History of Any Multi-Drug Resistant Organisms: None Reported Past Surgical History: Appendectomy, Back Surgery, Cardiac Ablation, Cholecystectomy, Coronary Bypass/CABG, Heart Catheterization With Stent, Hysterectomy Additional Past Surgical History / Comment(s): LOW, 1993 CABG-4 vessels, nasal cauterization, colonoscopy with benign polypectomy, D&C, bilateral cataract removals, R breast benign bx, lumbar laminectomy. Past Anesthesia/Blood Transfusion Reactions: Previous Problems w/ Anesthesia Additional Past Anesthesia/Blood Transfusion Reaction / Comment(s): Pt received blood 02/07/12 without reaction after epistaxis. Date of Last Stent Placement:: 03/2013 Past Psychological History: Anxiety, Depression Smoking Status: Former smoker - Past Family History Mother Additional Family Medical History / Comment(s): Mother was a heavy drinker. She lived to be in her 80's Father Family Medical History: No Reported History Additional Family Medical History / Comment(s): Father lived to be in his 80's General Exam Limitations: no limitations General appearance: alert, in no apparent distress Head exam: Present: normocephalic Eye exam: Present: normal appearance, PERRL, EOMI ENT exam: Present: normal oropharynx Neck exam: Present: normal inspection Respiratory exam: Present: normal lung sounds bilaterally Cardiovascular Exam: Present: bradycardia, irregular rhythm Expanded Peripheral pulses: 2+: Radial (R), Radial (L) GI/Abdominal exam: Present: soft. Absent: distended, tenderness, guarding, pulsatile mass Extremities exam: Present: normal inspection. Absent: pedal edema, calf ten derness Neurological exam: Present: alert, oriented X3, CN II-XII intact. Absent: motor sensory deficit Psychiatric exam: Present: normal affect, normal mood Skin exam: Present: normal color. Absent: rash Course Vital Signs 03/02/19 03/02/19 12:20 15:30 Temperature 98.4 F 97.4 F L Pulse Rate 57 L 54 L Respiratory 20 16 Rate Blood Pressure 115/55 104/54 O2 Sat by Pulse 96 95 Oximetry EKG Findings - EKG Comments: EKG Findings:: A. fib with slow ventricular response, rate 51. QRS 106. QT 422. QTC 388. Left axis. Normal QRS. Nonspecific T waves. Medical Decision Making - Medical Decision Making Patient reevaluated and resting comfortably in bed. Patient and family updated on results. Case discussed in detail with Dr. Virk, covering for Dr. schulte, who will admit. Family and Patient updated. - Lab Data Result diagrams: 03/02/19 13:07 03/02/19 13:07 Lab Results 03/02/19 03/02/19 03/02/19 Range/Units 13:07 13:07 13:07 WBC 9.0 (3.8-10.6) k/uL RBC 3.49 L (3.80-5.40) m/uL Hgb 11.5 (11.4-16.0) gm/dL Hct 35.7 (34.0-46.0) % MCV 102.3 H (80.0-100.0) fL MCH 33.1 (25.0-35.0) pg MCHC 32.3 (31.0-37.0) g/dL RDW 15.8 H (11.5-15.5) % Plt Count 224 (150-450) k/uL Neutrophils % 78 % Lymphocytes % 13 % Monocytes % 3 % Eosinophils % 4 % Basophils % 1 % Neutrophils # 7.1 (1.3-7.7) k/uL Lymphocytes # 1.2 (1.0-4.8) k/uL Monocytes # 0.3 (0-1.0) k/uL Eosinophils # 0.4 (0-0.7) k/uL Basophils # 0.1 (0-0.2) k/uL Macrocytosis Slight PT 9.8 (9.0-12.0) sec INR 0.9 (<1.2) APTT 26.4 (22.0-30.0) sec Sodium 136 L (137-145) mmol/L Potassium 3.8 (3.5-5.1) mmol/L Chloride 89 L (98-107) mmol/L Carbon Dioxide 36 H (22-30) mmol/L Anion Gap 11 mmol/L BUN 58 H (7-17) mg/dL Creatinine 2.02 H (0.52-1.04) mg/dL Est GFR (CKD-EPI)AfAm 26 (>60 ml/min/1.73 sqM) Est GFR (CKD-EPI)NonAf 22 (>60 ml/min/1.73 sqM) Glucose 97 (74-99) mg/dL POC Glucose (mg/dL) (75-99) mg/dL POC Glu Round[employer] Backing Machine Operator ID Calcium 9.4 (8.4-10.2) mg/dL Total Bilirubin 0.5 (0.2-1.3) mg/dL AST 24 (14-36) U/L ALT 17 (9-52) U/L Alkaline Phosphatase 78 (38-126) U/L Troponin I (0.000-0.034) ng/mL Total Protein 6.4 (6.3-8.2) g/dL Albumin 3.8 (3.5-5.0) g/dL Urine Color Urine Appearance (Clear) Urine pH (5.0-8.0) Ur Specific [place] (1.001-1.035) Urine Protein (Negative) Urine Glucose (UA) (Negative) Urine Ketones (Negative) Urine Blood (Negative) Urine Nitrite (Negative) Urine Bilirubin (Negative) Urine Urobilinogen (<2.0) mg/dL Ur Leukocyte Esterase (Negative) Urine WBC (0-5) /hpf Ur Squamous Epith Cells (0-4) /hpf Urine Bacteria (None) /hpf Urine Mucus (None) /hpf 03/02/19 03/02/19 03/02/19 Range/Units 13:07 13:21 14:21 WBC (3.8-10.6) k/uL RBC (3.80-5.40) m/uL Hgb (11.4-16.0) gm/dL Hct (34.0-46.0) % MCV (80.0-100.0) fL MCH (25.0-35.0) pg MCHC (31.0-37.0) g/dL RDW (11.5-15.5) % Plt Count (150-450) k/uL Neutrophils % % Lymphocytes % % Monocytes % % Eosinophils % % Basophils % % Neutrophils # (1.3-7.7) k/uL Lymphocytes # (1.0-4.8) k/uL Monocytes # (0-1.0) k/uL Eosinophils # (0-0.7) k/uL Basophils # (0-0.2) k/uL Macrocytosis PT (9.0-12.0) sec INR (<1.2) APTT (22.0-30.0) sec Sodium (137-145) mmol/L Potassium (3.5-5.1) mmol/L Chloride (98-107) mmol/L Carbon Dioxide (22-30) mmol/L Anion Gap mmol/L BUN (7-17) mg/dL Creatinine (0.52-1.04) mg/dL Est GFR (CKD-EPI)AfAm (>60 ml/min/1.73 sqM) Est GFR (CKD-EPI)NonAf (>60 ml/min/1.73 sqM) Glucose (74-99) mg/dL POC Glucose (mg/dL) 105 H (75-99) mg/dL POC Glu Round[employer]ing Machine Operator ID María Hernandez Calcium (8.4-10.2) mg/dL Total Bilirubin (0.2-1.3) mg/dL AST (14-36) U/L ALT (9-52) U/L Alkaline Phosphatase (38-126) U/L Troponin I 0.041 H* (0.000-0.034) ng/mL Total Protein (6.3-8.2) g/dL Albumin (3.5-5.0) g/dL Urine Color Yellow Urine Appearance Cloudy H (Clear) Urine pH 6.0 (5.0-8.0) Ur Specific [place] 1.012 (1.001-1.035) Urine Protein Negative (Negative) Urine Glucose (UA) Negative (Negative) Urine Ketones Negative (Negative) Urine Blood Negative (Negative) Urine Nitrite Negative (Negative) Urine Bilirubin Negative (Negative) Urine Urobilinogen <2.0 (<2.0) mg/dL Ur Leukocyte Esterase Negative (Negative) Urine WBC <1 (0-5) /hpf Ur Squamous Epith Cells 14 H (0-4) /hpf Urine Bacteria Rare H (None) /hpf Urine Mucus Rare H (None) /hpf - Radiology Data Radiology results: report reviewed (Computed tomography scan of the brain shows no acute intercranial abnormality.), image reviewed (Chest x-ray shows no acute process) Disposition Clinical Impression: Altered mental status Disposition: ADMITTED IP TO THIS HOSP Is patient prescribed a controlled substance at d/c from ED?: No Referrals: Tiera Kuhn MD [Primary Care Provider] - 1-2 days Decision Time: 15:34
[2019-03-02 13:26] LABS: Glucose,Whole Blood 105 mg/dL (75-99)
[2019-03-02 13:42] LABS: Basophils # (A) 0.1 k/uL (0-0.2); Basophils % (A) 1 %; Eosinophils # (A) 0.4 k/uL (0-0.7); Eosinophils % (A) 4 %; HCT 35.7 % (34.0-46.0); HGB 11.5 gm/dL (11.4-16.0); Lymphocytes # (A) 1.2 k/uL (1.0-4.8); Lymphocytes % (A) 13 %; MCH 33.1 pg (25.0-35.0); MCHC 32.3 g/dL (31.0-37.0); MCV 102.3 fL (80.0-100.0); Macrocytosis Slight; Mean Platelet Volume 6.1; Monocytes # (A) 0.3 k/uL (0-1.0); Monocytes % (A) 3 %; Neutrophils # (A) 7.1 k/uL (1.3-7.7); Neutrophils % (A) 78 %; Platelet Count 224 k/uL (150-450); RBC 3.49 m/uL (3.80-5.40); RDW 15.8 % (11.5-15.5)
[2019-03-02 13:48] LABS: INR 0.9 (<1.2); Partial Thromboplastin Time 26.4 sec (22.0-30.0); Prothrombin Time 9.8 sec (9.0-12.0)
[2019-03-02 13:51] LABS: Albumin 3.8 g/dL (3.5-5.0); Calcium 9.4 mg/dL (8.4-10.2); Potassium 3.8 mmol/L (3.5-5.1); Total Bilirubin 0.5 mg/dL (0.2-1.3); Total Protein 6.4 g/dL (6.3-8.2)
--- NOTE | 2019-03-02 14:07 | CT ---
EXAMINATION TYPE: CT brain wo con DATE OF EXAM: 03/02/2019 COMPARISON: 12/08/2018 HISTORY: altered mental status CT DLP: 1021.4 mGycm Automated exposure control for dose reduction was used. TECHNIQUE: CT scan of the head is performed without contrast. FINDINGS: There is no acute intracranial hemorrhage or midline shift identified. There is diffuse v entricular and sulcal prominence consistent with diffuse age-related cerebral atrophy. There is low- attenuation in the periventricular white matter consistent with chronic small vessel ischemic change. The globes are intact and the visualized sinuses are clear. Incidentally noted vasiliy bullosa eric aterally and cerumen in the external auditory canals. Extensive atherosclerosis is seen in the intrac ranial vasculature. No suspicious extra-axial fluid collection. IMPRESSION: No acute intracranial hemorrhage or midline shift. There is diffuse age-related cerebra l atrophy and chronic small vessel ischemic change noted.
--- NOTE | 2019-03-02 14:08 | XR ---
EXAMINATION TYPE: XR chest 2V DATE OF EXAM: 03/02/2019 COMPARISON: 11/23/2018 HISTORY: Shortness of breath and altered mental status TECHNIQUE: Frontal and lateral views of the chest are obtained. FINDINGS: There is chronic right hemidiaphragm elevation. Chronic interstitial prominence is also se en. Post CABG changes of the chest are noted. There is a mildly enlarged cardiac mediastinal silhouet te is partially obscured. Degenerative changes of the shoulder and spine are noted. IMPRESSION: Chronic changes with no acute cardiopulmonary process.
[2019-03-02 14:53] LABS: Appearance,Urine Cloudy (Clear); Bacteria,Urine Rare /hpf; Bilirubin,Urine Negative (Negative); Blood,Urine Negative (Negative); Color,Urine Yellow; Glucose,Urine (UA) Negative (Negative); Ketones,Urine Negative (Negative); Leukocyte Esterase,Urine Negative (Negative); Mucus,Urine Rare /hpf; Nitrite,Urine Negative (Negative); Protein,Urine Negative (Negative); Specific Gravity,Urine 1.012 (1.001-1.035); Squamous Epithelial Cell,Urine 14 /hpf (0-4); Urobilinogen,Urine <2.0 mg/dL (<2.0); WBC,Urine <1 /hpf (0-5)
[2019-03-02] MEDS ORDERED: NALOXONE 0.4 MG/ML 1 ML VIAL IV PRN (15:34)
[2019-03-02 17:28] VITALS: BMI 32.5
[2019-03-02] MEDS: SODIUM CHLORIDE 0.9% 1,000 ML IV SCH (18:44)
[2019-03-02] MEDS ORDERED: NITROGLYCERIN SL TABS 0.4 MG TAB SUBLINGUAL PRN (21:12)
[2019-03-02] MEDS ORDERED: ALPRAZolam 0.25 MG TAB PO PRN (21:12)
[2019-03-02] MEDS: FAMOTIDINE 20 MG TAB PO SCH (21:49)
[2019-03-02] MEDS: MONTELUKAST 10 MG TAB PO SCH (21:49)
[2019-03-02] MEDS: METOPROLOL TARTRATE 50 MG TAB PO SCH (21:50)
[2019-03-03] MEDS: LEVOTHYROXINE 125 MCG TAB PO SCH (06:06)
[2019-03-03] MEDS: DIGOXIN 125 MCG TAB PO SCH (08:46)
[2019-03-03] MEDS: ISOSORBIDE MONONITRATE ER 30 MG TAB.ER.24H PO SCH (08:47)
[2019-03-03] MEDS: ESCITALOPRAM 10 MG TAB PO SCH (08:47)
[2019-03-03] MEDS: PRAVASTATIN SODIUM 40 MG TAB PO SCH (08:47)
[2019-03-03] MEDS: ALLOPURINOL 300 MG TAB PO SCH (08:47)
[2019-03-03] MEDS: ASPIRIN 81 MG PO SCH ×2 (08:47→20:15)
[2019-03-03] MEDS: FUROSEMIDE 20 MG TAB PO SCH ×2 (08:47→16:37)
[2019-03-03] MEDS: CYANOCOBALAMIN 500 MCG TAB PO SCH (08:48)
[2019-03-03] MEDS: FERROUS SULFATE 325 MG TAB PO SCH (08:48)
[2019-03-03] MEDS: FAMOTIDINE 20 MG TAB PO SCH ×2 (08:48→20:15)
[2019-03-03] MEDS: NON FORMULARY DRUG (Omega-3 Fatty Acids/Fish Oil [Fish Oil 1,000 Mg Softgel] 1 CAP) PO SCH (11:30)
[2019-03-03] MEDS: METOPROLOL TARTRATE 50 MG TAB PO SCH (12:18)
--- NOTE | 2019-03-03 12:57 | P.HPIM ---
History of Present Illness H&P Date: 03/03/19 Gisela Harman is an 83-year-old female who presented to [facility] emergency room due to confusion and hallucinations, family states that patient was diagnosed with urinary tract infection as outpatient she was started on oral antibiotics and initially started to improve however her symptoms worsened again and she was starting to have confusion and shaking and had hallucinations they decided to bring her in to emergency room for further evaluation. In emergency room patient had a urine analysis that failed to reveal any significant infection, however patient had evidence of acute on chronic renal failure with elevated BUN at 58 and elevated creatinine at 2.02 which is above her baseline, she was admitted to medical floor for further evaluation and treatment. When and examined on the medical floor patient was complaining of episodes of diarrhea, she was alert slightly confused in no apparent distress, she denied any pain or discomfort she denies any shortness of breath or cough, there was no fever or chills no headache or dizziness no chest pain no shortness of breath no nausea or vomiting no abdominal pain no diarrhea no burning was urination no frequency or urgency and no hematuria. Past Medical History Past Medical History: Atrial Fibrillation, Coronary Artery Disease (CAD), Chest Pain / Angina, Heart Failure, COPD, GERD/Reflux, Hyperlipidemia, Myocardial Infarction ([place]), Osteoarthritis (OA), Pneumonia, Renal Disease Additional Past Medical History / Comment(s): Pt recently admitted to [facility] on 11/24/18 with dyspnea r/t CHF/cardiomyopathy and acute on chronic kidney disease. Other hx: Chronic Afib, neuropathy bilateral feet, gout bilateral feet, falls, occasional low back pain with bilateral sciatica with L side worse, hypothyroid, epistaxis with blood loss anemia, recent memory impairment Last Myocardial Infarction Date:: 2012 History of Any Multi-Drug Resistant Organisms: None Reported Past Surgical History: Appendectomy, Back Surgery, Cardiac Ablation, Cholecystectomy, Coronary Bypass/CABG, Heart Catheterization With Stent, Hysterectomy Additional Past Surgical History / Comment(s): LOW, 1993 CABG-4 vessels, nasal cauterization, colonoscopy with benign polypectomy, D&C, bilateral cataract removals, R breast benign bx, lumbar laminectomy. Past Anesthesia/Blood Transfusion Reactions: Previous Problems w/ Anesthesia Additional Past Anesthesia/Blood Transfusion Reaction / Comment(s): Pt received blood 02/07/12 without reaction after epistaxis. Date of Last Stent Placement:: 03/2013 Past Psychological History: Anxiety, Depression Additional Psychological History / Comment(s): Pt resides alone. She uses a walker to ambulate. She drives. She has home oxygen and a nebulizer. Smoking Status: Former smoker Past Alcohol Use History: Occasional Additional Past Alcohol Use History / Comment(s): Pt has a glass of wine each evening. She started smoking in 1956 and quit in 1986. Past Drug Use History: None Reported - Past Family History Mother Additional Family Medical History / Comment(s): Mother was a heavy drinker. She lived to be in her 80's Father Family Medical History: No Reported History Additional Family Medical History / Comment(s): Father lived to be in his 80's Medications and Allergies Home Medications Medication Instructions Recorded Confirmed Type Cyanocobalamin [Vitamin B-12] 500 mcg PO DAILY 10/03/13 03/02/19 History Aspirin [Adult Low Dose Aspirin EC] 81 mg PO BID 01/10/16 03/02/19 History ALPRAZolam [Xanax] 0.25 mg PO Q6H PRN 07/20/18 03/02/19 History Allopurinol [Zyloprim] 300 mg PO DAILY 07/20/18 03/02/19 History Escitalopram [Lexapro] 10 mg PO DAILY 07/20/18 03/02/19 History Nitroglycerin Sl Tabs [Nitrostat] 0.4 mg SUBLINGUAL Q5M PRN 07/20/18 03/02/19 History Montelukast [Singulair] 10 mg PO HS #30 tab 09/18/18 03/02/19 Rx Levothyroxine Sodium [Synthroid] 125 mcg PO DAILY@0630 30 Days #30 10/06/18 03/02/19 Rx tab Isosorbide Mononitrate [Isosorbide 30 mg PO DAILY 10/22/18 03/02/19 History Mononitrate ER] Metolazone [Zaroxolyn] 2.5 mg PO MOWEFR 10/22/18 03/02/19 History Pravastatin Sodium [Pravachol] 40 mg PO DAILY 11/23/18 03/02/19 History Ranitidine HCl [Zantac] 150 mg PO BID 11/23/18 03/02/19 History Furosemide [Lasix] 60 mg PO BID@0900,1600 30 Days #60 07/11/19 10/11/19 Rx tab Digoxin [Lanoxin] 62.5 mcg PO DAILY 03/02/19 03/02/19 History Ferrous Sulfate [Iron (65 MG 325 mg PO DAILY 03/02/19 03/02/19 History Elemental)] Metoprolol Tartrate [Lopressor] 50 mg PO TID 03/02/19 03/02/19 History [place]-3 Fatty Acids/Fish Oil [Fish 1 cap PO DAILY 03/02/19 03/02/19 History Oil 1,000 mg Softgel] Ubidecarenone [Co Q-10] 100 mg PO DAILY 03/02/19 03/02/19 History Allergies Allergy/AdvReac Type Severity Reaction Status Date / Time Lsklxoa-Dsw-Aug Reductase AdvReac Unknown Verified 03/02/19 13:31 Inhibitor Physical Exam Vitals: Vital Signs Temp Pulse Pulse Resp BP BP Pulse Ox 03/03/19 11:30 97.6 F 58 L 18 98/54 96 03/03/19 07:50 98.4 F 62 18 114/51 97 03/03/19 03:30 98.6 F 79 16 105/49 95 03/02/19 23:00 98.2 F 63 18 104/55 95 03/02/19 20:40 97.7 F 57 L 18 90/49 97 03/02/19 20:17 96 03/02/19 20:00 97.8 F 59 L 16 97/41 03/02/19 16:38 97.5 F L 53 L 16 93/83 97 03/02/19 15:30 97.4 F L 54 L 16 104/54 95 Intake and Output 03/02/19 03/03/19 03/03/19 22:59 06:59 14:59 Intake Total 240 Output Total 300 300 Balance -300 -60 Intake: Oral 240 Output: Urine 300 300 Other: Voiding Method Bedside Commode Bedside Commode Bedside Commode # Voids 1 3 # Bowel Movements 1 1 Weight 86.1 kg In general patient is alert slightly confused in no apparent distress HEENT head normocephalic and atraumatic Neck is supple no JVD no goiter no lymphadenopathy Chest exam reveals a few scattered rhonchi no wheezing Cardiac exam reveals regular heart sounds S1 and S2 no gallops no murmurs Abdomen is soft nontender no organomegaly with normal bowel sounds Extremity exam reveals no edema no cyanosis or clubbing Neurological examination reveals no gross focal deficit Results CBC & Chem 7: 03/02/19 13:07 03/02/19 13:07 Labs: Abnormal Lab Results - Last 24 Hours (Table) 03/02/19 03/02/19 03/02/19 Range/Units 13:07 13:07 13:07 RBC 3.49 L (3.80-5.40) m/uL MCV 102.3 H (80.0-100.0) fL RDW 15.8 H (11.5-15.5) % Sodium 136 L (137-145) mmol/L Chloride 89 L (98-107) mmol/L Carbon Dioxide 36 H (22-30) mmol/L BUN 58 H (7-17) mg/dL Creatinine 2.02 H (0.52-1.04) mg/dL POC Glucose (mg/dL) (75-99) mg/dL Troponin I 0.041 H* (0.000-0.034) ng/mL Urine Appearance (Clear) Ur Squamous Epith Cells (0-4) /hpf Urine Bacteria (None) /hpf Urine Mucus (None) /hpf 03/02/19 03/02/19 03/02/19 Range/Units 13:21 14:21 19:09 RBC (3.80-5.40) m/uL MCV (80.0-100.0) fL RDW (11.5-15.5) % Sodium (137-145) mmol/L Chloride (98-107) mmol/L Carbon Dioxide (22-30) mmol/L BUN (7-17) mg/dL Creatinine (0.52-1.04) mg/dL POC Glucose (mg/dL) 105 H (75-99) mg/dL Troponin I 0.044 H* (0.000-0.034) ng/mL Urine Appearance Cloudy H (Clear) Ur Squamous Epith Cells 14 H (0-4) /hpf Urine Bacteria Rare H (None) /hpf Urine Mucus Rare H (None) /hpf 03/03/19 03/03/19 Range/Units 01:20 07:39 RBC (3.80-5.40) m/uL MCV (80.0-100.0) fL RDW (11.5-15.5) % Sodium (137-145) mmol/L Chloride (98-107) mmol/L Carbon Dioxide (22-30) mmol/L BUN (7-17) mg/dL Creatinine (0.52-1.04) mg/dL POC Glucose (mg/dL) (75-99) mg/dL Troponin I 0.048 H* 0.051 H* (0.000-0.034) ng/mL Urine Appearance (Clear) Ur Squamous Epith Cells (0-4) /hpf Urine Bacteria (None) /hpf Urine Mucus (None) /hpf Microbiology - Last 24 Hours (Table) 03/02/19 14:21 Urine Culture - Preliminary Urine,Voided Thrombosis Risk Factor Assmnt - Choose All That Apply Each Factor Represents 1 point: Obesity (BMI >25) Each Risk Factor Represents 3 Points: Age 75 years or older Thrombosis Risk Factor Assessment Total Risk Factor Score: 4 Thrombosis Risk Factor Assessment Level: Moderate Risk Assessment and Plan Plan: #1 mental status changes with confusion and hallucinations, this could be related to underlying urinary tract infection which is partially treated, it could also be related to side effect of medications used as outpatient to treat urinary tract infection, will monitor progress psychiatry consultation was requested in the emergency room due to vivid hallucinations. #2 episodes of diarrhea will check stool stool rule out Clostridium difficile colitis #3 acute on chronic renal failure with elevated BUN at 58 and elevated creatinine at 2.02 at this time nephrology consultation was requested #4 underlying history of hyperlipidemia maintained on Pravachol #5 underlying history of hypothyroidism maintained on Synthroid 125 g daily Will check TSH #6 underlying history of depression maintained on Lexapro 10 mg daily #7 underlying history of gout maintained on Zyloprim will check uric acid level, may need to decrease dose of Zyloprim in view of her renal function At this time will check stool for C. diff, continue to monitor renal function Will follow closely
--- NOTE | 2019-03-03 17:22 | P.CN ---
Psychiatric Consult - . Consult date: 03/03/19 Consult:: 03/03/19 17:21 Chief Complaint 83 year old female admitted to medicine with possible UTI, confusion and hallucinations. Reason for psychiatry consult Psychiatry was consulted to evaluate this patient for confusion and Barros ucinations. History of presenting illness Patient did not know why she was in the hospital. Patient son who was in the room told that patient was here for UTI. Patient was alert and oriented and was sitting comfortably in the chair. She denies symptoms of depression and stated she is pretty good. She denies paranoid ideations, auditory and visual hallucinations. She reports good sleep and appetite. No behavioral problems since her admission. Past psychiatric history No inpatient psychiatric treatment. Patient takes lexapro prescribed through her primary care physician for the past one year. Per patients son, patient was started on lexapro due to feeling down at that time. Substance use history Quit smoking cigarettes 40 year s ago. Denies other illicit drug use. Medical history Atrial Fibrillation, Coronary Artery Disease (CAD), Chest Pain / Angina, Heart Failure, COPD, GERD/Reflux, Hyperlipidemia, Myocardial Infarction ([place]), Osteoarthritis (OA), Pneumonia, Renal Disease Social history Following the of her eight years ago patient has been living alone in a three bed room house in [place] Lives alone. Her son has moved in with her in august 2018 and helps her with her daily chores. Mental status exam 83 year old woman, appears her stated age in marginal grooming and fair hygiene. She maintains good eye contact. She is hearing impaired. Her speech is goal directed. Her mood is reported as pretty good and affect constricted. She denies current auditory or visual hallucinations. Denies paranoid ideations. Denies suicidal or homicidal ideations. She is alert and oriented to time, place and person. She was able to recall 2/3 objects after five minutes. Her insight and judgement are limited. Diagnosis Delirium due to her recent medical condition UTI. She is currently stable and not delirious. Depression diagnosed by PCP one year ago takes lexapro and is currently stable. Plan 83-year-old woman admitted to medicine with possible UTI, and delirium. Psychiatry consulted to evaluate patient for hallucinations. She is currently stable and not delirious. No hallucinations reported. Continue lexapro for depression and follow up with PCP Thank you for your consult and please contact psychiatry with any questions. Patient does not need psychiatry admission at his time.
[2019-03-03] MEDS: SODIUM CHLORIDE 0.9% 1,000 ML IV SCH (20:08)
[2019-03-03] MEDS: MONTELUKAST 10 MG TAB PO SCH (20:15)
[2019-03-03] MEDS: ACETAMINOPHEN TAB 325 MG TAB PO PRN (20:45)
[2019-03-04] MEDS: LEVOTHYROXINE 125 MCG TAB PO SCH (05:44)
[2019-03-04] MEDS: ISOSORBIDE MONONITRATE ER 30 MG TAB.ER.24H PO SCH (09:12)
[2019-03-04] MEDS: FUROSEMIDE 20 MG TAB PO SCH ×2 (09:12→16:09)
[2019-03-04] MEDS: ALLOPURINOL 300 MG TAB PO SCH (09:12)
[2019-03-04] MEDS: ASPIRIN 81 MG PO SCH ×2 (09:12→20:18)
[2019-03-04] MEDS: CYANOCOBALAMIN 500 MCG TAB PO SCH (09:12)
[2019-03-04] MEDS: PRAVASTATIN SODIUM 40 MG TAB PO SCH (09:12)
[2019-03-04] MEDS: FERROUS SULFATE 325 MG TAB PO SCH (09:12)
[2019-03-04] MEDS: ESCITALOPRAM 10 MG TAB PO SCH (09:12)
[2019-03-04] MEDS: FAMOTIDINE 20 MG TAB PO SCH (09:12)
[2019-03-04] MEDS: DIGOXIN 125 MCG TAB PO SCH (09:13)
[2019-03-04] MEDS: NON FORMULARY DRUG (Omega-3 Fatty Acids/Fish Oil [Fish Oil 1,000 Mg Softgel] 1 CAP) PO SCH (09:13)
--- NOTE | 2019-03-04 10:30 | P.CRDCN ---
History of Present Illness Consult date: 03/04/19 Chief complaint: Change in mental status History of present illness: This is a pleasant 83-year-old female patient who was known to her service from before with an extensive past medical history consistent of coronary artery disease and prior coronary artery bypass grafting, chronic persistent atrial fibrillation not on any oral anticoagulation due to GI bleeding, hypertension, dyslipidemia, as well as multiple comorbid conditions, was admitted to the hospital with a change in mental status. The patient is a very poor historian and as a matter of fact she is confused. The history was taken from the chart as well as from the nurse taking care of the patient. The patient presented to the emergency room hallucinating. Apparently she was diagnosed with UTI recently and she was started on antibiotic as an outpatient. Since then she has been more confused and decided to come to the emergency room for further evaluation. In the ER the patient was found to be in acute renal failure. She does have a component of chronic renal failure but she has acute on chronic renal failure. We involved in the care of the patient because of cardiac arrhythmia in the term of bradycardia arrhythmia as well as sinus pause. The patient does have chronic persistent atrial fibrillation. She did have an episode of sinus was yesterday of 2.8 seconds during that episode she was completely asymptomatic. Please note that the patient was receiving as an outpatient metoprolol and more importantly digoxin. The patient denies any symptoms of chest pain or chest discomfort, shortness of breath, or feeling dizzy or lightheaded. At this point, I am going to DC digoxin. Rule out digoxin toxicity in view of the acute renal failure. We'll check the digoxin level. Also will decrease the dose of metoprolol. Continue monitor the heart rate. Would also obtain electrolytes including potassium. Past Medical History Past Medical History: Atrial Fibrillation, Coronary Artery Disease (CAD), Chest Pain / Angina, Heart Failure, COPD, GERD/Reflux, Hyperlipidemia, Myocardial Infarction (CO), Osteoarthritis (OA), Pneumonia, Renal Disease Additional Past Medical History / Comment(s): Pt recently admitted to [facility] on 11/24/18 with dyspnea r/t CHF/cardiomyopathy and acute on chronic kidney disease. Other hx: Chronic Afib, neuropathy bilateral feet, gout bilateral feet, falls, occasional low back pain with bilateral sciatica with L side worse, hypothyroid, epistaxis with blood loss anemia, recent memory impairment Last Myocardial Infarction Date:: 2012 History of Any Multi-Drug Resistant Organisms: None Reported Past Surgical History: Appendectomy, Back Surgery, Cardiac Ablation, Cholecystectomy, Coronary Bypass/CABG, Heart Catheterization With Stent, Hysterectomy Additional Past Surgical History / Comment(s): LOW, 1993 CABG-4 vessels, nasal cauterization, colonoscopy with benign polypectomy, D&C, bilateral cataract removals, R breast benign bx, lumbar laminectomy. Past Anesthesia/Blood Transfusion Reactions: Previous Problems w/ Anesthesia Additional Past Anesthesia/Blood Transfusion Reaction / Comment(s): Pt received blood 02/07/12 without reaction after epistaxis. Date of Last Stent Placement:: 03/2013 Past Psychological History: Anxiety, Depression Additional Psychological History / Comment(s): Pt resides alone. She uses a walker to ambulate. She drives. She has home oxygen and a nebulizer. Smoking Status: Former smoker Past Alcohol Use History: Occasional Additional Past Alcohol Use History / Comment(s): Pt has a glass of wine each evening. She started smoking in 1956 and quit in 1986. Past Drug Use History: None Reported - Past Family History Mother Additional Family Medical History / Comment(s): Mother was a heavy drinker. She lived to be in her 80's Father Family Medical History: No Reported History Additional Family Medical History / Comment(s): Father lived to be in his 80's Medications and Allergies Home Medications Medication Instructions Recorded Confirmed Type Cyanocobalamin [Vitamin B-12] 500 mcg PO DAILY 10/03/13 03/02/19 History Aspirin [Adult Low Dose Aspirin EC] 81 mg PO BID 01/10/16 03/02/19 History ALPRAZolam [Xanax] 0.25 mg PO Q6H PRN 07/20/18 03/02/19 History Allopurinol [Zyloprim] 300 mg PO DAILY 07/20/18 03/02/19 History Escitalopram [Lexapro] 10 mg PO DAILY 07/20/18 03/02/19 History Nitroglycerin Sl Tabs [Nitrostat] 0.4 mg SUBLINGUAL Q5M PRN 07/20/18 03/02/19 History Montelukast [Singulair] 10 mg PO HS #30 tab 09/18/18 03/02/19 Rx Levothyroxine Sodium [Synthroid] 125 mcg PO DAILY@0630 30 Days #30 10/06/18 03/02/19 Rx tab Isosorbide Mononitrate [Isosorbide 30 mg PO DAILY 10/22/18 03/02/19 History Mononitrate ER] Metolazone [Zaroxolyn] 2.5 mg PO MOWEFR 10/22/18 03/02/19 History Pravastatin Sodium [Pravachol] 40 mg PO DAILY 11/23/18 03/02/19 History Ranitidine HCl [Zantac] 150 mg PO BID 11/23/18 03/02/19 History Furosemide [Lasix] 60 mg PO BID@0900,1600 30 Days #60 11/30/18 03/02/19 Rx tab Digoxin [Lanoxin] 62.5 mcg PO DAILY 03/02/19 03/02/19 History Ferrous Sulfate [Iron (65 MG 325 mg PO DAILY 03/02/19 03/02/19 History Elemental)] Metoprolol Tartrate [Lopressor] 50 mg PO TID 03/02/19 03/02/19 History [place]-3 Fatty Acids/Fish Oil [Fish 1 cap PO DAILY 03/02/19 03/02/19 History Oil 1,000 mg Softgel] Ubidecarenone [Co Q-10] 100 mg PO DAILY 03/02/19 03/02/19 History Allergies Allergy/AdvReac Type Severity Reaction Status Date / Time Skllfyv-Mtz-Bao Reductase AdvReac Unknown Verified 03/02/19 13:31 Inhibitor Physical Exam Vitals: Vital Signs Temp Pulse Resp BP Pulse Ox 03/04/19 04:00 98.3 F 74 16 128/60 94 L 03/04/19 00:00 98.6 F 74 16 129/60 94 L 03/03/19 20:00 98.6 F 74 16 129/60 94 L 03/03/19 15:55 97.4 F L 60 18 115/55 96 03/03/19 11:30 97.6 F 58 L 18 98/54 96 Intake and Output 03/03/19 03/04/19 03/04/19 22:59 06:59 14:59 Intake Total 800 Output Total 300 450 Balance 500 -450 Intake: Oral 800 Output: Urine 300 450 Other: Voiding Method Bedside Commode # Voids 1 1 # Bowel Movements 1 Weight 83.6 kg - Constitutional General appearance: no acute distress - Respiratory Respiratory: bilateral: diminished - Cardiovascular Rhythm: irregularly irregular Heart sounds: normal: S1, S2 Abnormal Heart Sounds: systolic murmur Results 03/02/19 13:07 03/02/19 13:07 Current Medications Generic Name Dose Route Start Last Admin Trade Name Freq PRN Reason Stop Dose Admin Acetaminophen 650 mg 03/03/19 20:27 03/03/19 20:45 Tylenol Tab PO 650 mg Q6HR PRN Administration Fever and/ or Pain Allopurinol 300 mg 03/03/19 09:00 03/04/19 09:12 Zyloprim PO 300 mg DAILY MAIKOL Administration Alprazolam 0.25 mg 03/02/19 21:12 Xanax PO Q6H PRN Anxiety Aspirin 81 mg 03/03/19 09:00 03/04/19 09:12 Aspirin PO 81 mg BID MAIKOL Administration Cyanocobalamin 500 mcg 03/03/19 09:00 03/04/19 09:12 Vitamin B-12 PO 500 mcg DAILY MAIKOL Administration Escitalopram Oxalate 10 mg 03/03/19 09:00 03/04/19 09:12 Lexapro PO 10 mg DAILY MAIKOL Administration Famotidine 20 mg 03/02/19 21:30 03/04/19 09:12 Pepcid PO 20 mg BID MAIKOL Administration Ferrous Sulfate 325 mg 03/03/19 09:00 03/04/19 09:12 Feosol PO 325 mg DAILY MAIKOL Administration Furosemide 60 mg 03/03/19 09:00 03/04/19 09:12 Lasix PO 60 mg BID@0900,1600 MAIKOL Administration Sodium Chloride 1,000 mls @ 20 mls/hr 03/02/19 15:45 03/03/19 20:08 Saline 0.9% IV Not Given .Q24H MAIKOL Isosorbide Mononitrate 30 mg 03/03/19 09:00 03/04/19 09:12 Imdur PO 30 mg DAILY MAIKOL Administration Levothyroxine Sodium 125 mcg 03/03/19 06:30 03/04/19 05:44 Synthroid PO 125 mcg DAILY@0630 MAIKOL Administration Metolazone 2.5 mg 03/05/19 09:00 Zaroxolyn PO MOWEFR MAIKOL Metoprolol Tartrate 25 mg 03/04/19 21:00 Lopressor PO BID MAIKOL Montelukast Sodium 10 mg 03/02/19 21:30 03/03/19 20:15 Singulair PO 10 mg HS MAIKOL Administration Naloxone HCl 0.2 mg 03/02/19 15:34 Narcan IV Q2M PRN Opioid Reversal Nitroglycerin 0.4 mg 03/02/19 21:12 Nitrostat SUBLINGUAL Q5M PRN Chest Pain Non-Formulary Medication 1 cap 03/03/19 09:00 03/04/19 09:13 [place]-3 Fatty Acids/Fish Oil [Fish Oil 1,000 Mg Softgel] PO Not Given DAILY MAIKOL Pravastatin Sodium 40 mg 03/03/19 09:00 03/04/19 09:12 Pravachol PO 40 mg DAILY MAIKOL Administration Intake and Output 03/03/19 03/04/19 03/04/19 22:59 06:59 14:59 Intake Total 800 Output Total 300 450 Balance 500 -450 Intake: Oral 800 Output: Urine 300 450 Other: Voiding Method Bedside Commode # Voids 1 1 # Bowel Movements 1 Weight 83.6 kg 03/02/19 13:07 03/02/19 13:07 Assessment and Plan Assessment: Assessment #1 change in mental status #2 acute on chronic renal failure #3 bradycardia arrhythmia #4 sinus positive episode of 3.8 seconds #5 chronic persistent atrial fibrillation #6 severe mitral regurgitation #7 coronary artery disease #8 chronic persistent atrial fibrillation Plan #1 rule out digoxin toxicity. Will check the digoxin level. We'll check the potassium level #2 the bradycardia arrhythmia is likely to be triggered by the digoxin in the setting of acute renal failure #3 DC the Digoxin. Decrease the dose of metoprolol. #4 continue monitoring the electrolytes #5 follow-up with the patient Thank you for allowing us participate in her care
--- NOTE | 2019-03-04 10:31 | P.NPCON ---
History of Present Illness - Reason for Consult acute renal failure, chronic renal failure - History of Present Illness Reason for consultation: Acute kidney injury on chronic kidney disease History of present illness: Patient is a 83-year-old female seen in consultation for acute kidney injury on chronic kidney disease. Patient has chronic kidney disease stage III with baseline creatinine in the range of 1.1-1.5. However recently her creatinine has been near 2. Patient presented to the hospital due to confusion. She was recently treated for UTI outpatient with oral antibiotics for 5 days. However she was noted to have shaking and hallucinations and came to the hospital. Urine culture this admission is positive for gram-negative bacilli. She denies any active chest pain or shortness of breath. Denies use of nonsteroidals. She has history of diastolic CHF with severe mitral regurgitation. Chest x-ray doesn't just above fluid overload at this time. Oral intake is fair. Hemodynamically stable. Vital signs are stable. General: The patient appeared well nourished and normally developed. HEENT: Head exam is unremarkable. Neck is without jugular venous distension. LUNGS: Breath sounds decreased. HEART: Rate and Rhythm are regular. First and second heart sounds normal. No murmurs, rubs or gallops. ABDOMEN: Abdominal exam reveals normal bowel sounds. Non-tender and non-distende d. No evidence of peritonitis. EXTREMITITES: No clubbing, cyanosis, or edema. Past Medical History Past Medical History: Atrial Fibrillation, Coronary Artery Disease (CAD), Chest Pain / Angina, Heart Failure, COPD, GERD/Reflux, Hyperlipidemia, Myocardial Infarction (CA), Osteoarthritis (OA), Pneumonia, Renal Disease Additional Past Medical History / Comment(s): Pt recently admitted to [facility] on 11/24/18 with dyspnea r/t CHF/cardiomyopathy and acute on chronic kidney disease. Other hx: Chronic Afib, neuropathy bilateral feet, gout bilateral feet, falls, occasional low back pain with bilateral sciatica with L side worse, hypothyroid, epistaxis with blood loss anemia, recent memory impairment Last Myocardial Infarction Date:: 2012 History of Any Multi-Drug Resistant Organisms: None Reported Past Surgical History: Appendectomy, Back Surgery, Cardiac Ablation, Cholecystectomy, Coronary Bypass/CABG, Heart Catheterization With Stent, Hysterectomy Additional Past Surgical History / Comment(s): LOW, 1993 CABG-4 vessels, nasal cauterization, colonoscopy with benign polypectomy, D&C, bilateral cataract removals, R breast benign bx, lumbar laminectomy. Past Anesthesia/Blood Transfusion Reactions: Previous Problems w/ Anesthesia Additional Past Anesthesia/Blood Transfusion Reaction / Comment(s): Pt received blood 02/07/12 without reaction after epistaxis. Date of Last Stent Placement:: 03/2013 Past Psychological History: Anxiety, Depression Additional Psychological History / Comment(s): Pt resides alone. She uses a walker to ambulate. She drives. She has home oxygen and a nebulizer. Smoking Status: Former smoker Past Alcohol Use History: Occasional Additional Past Alcohol Use History / Comment(s): Pt has a glass of wine each evening. She started smoking in 1956 and quit in 1986. Past Drug Use History: None Reported - Past Family History Mother Additional Family Medical History / Comment(s): Mother was a heavy drinker. She lived to be in her 80's Father Family Medical History: No Reported History Additional Family Medical History / Comment(s): Father lived to be in his 80's Medications and Allergies Home Medications Medication Instructions Recorded Confirmed Type Cyanocobalamin [Vitamin B-12] 500 mcg PO DAILY 10/03/13 03/02/19 History Aspirin [Adult Low Dose Aspirin EC] 81 mg PO BID 01/10/16 03/02/19 History ALPRAZolam [Xanax] 0.25 mg PO Q6H PRN 07/20/18 03/02/19 History Allopurinol [Zyloprim] 300 mg PO DAILY 07/20/18 03/02/19 History Escitalopram [Lexapro] 10 mg PO DAILY 07/20/18 03/02/19 History Nitroglycerin Sl Tabs [Nitrostat] 0.4 mg SUBLINGUAL Q5M PRN 07/20/18 03/02/19 History Montelukast [Singulair] 10 mg PO HS #30 tab 09/18/18 03/02/19 Rx Levothyroxine Sodium [Synthroid] 125 mcg PO DAILY@0630 30 Days #30 10/06/18 03/02/19 Rx tab Isosorbide Mononitrate [Isosorbide 30 mg PO DAILY 10/22/18 03/02/19 History Mononitrate ER] Metolazone [Zaroxolyn] 2.5 mg PO MOWEFR 10/22/18 03/02/19 History Pravastatin Sodium [Pravachol] 40 mg PO DAILY 11/23/18 03/02/19 History Ranitidine HCl [Zantac] 150 mg PO BID 11/23/18 03/02/19 History Furosemide [Lasix] 60 mg PO BID@0900,1600 30 Days #60 11/30/18 03/02/19 Rx tab Digoxin [Lanoxin] 62.5 mcg PO DAILY 03/02/19 03/02/19 History Ferrous Sulfate [Iron (65 MG 325 mg PO DAILY 03/02/19 03/02/19 History Elemental)] Metoprolol Tartrate [Lopressor] 50 mg PO TID 03/02/19 03/02/19 History [place]-3 Fatty Acids/Fish Oil [Fish 1 cap PO DAILY 03/02/19 03/02/19 History Oil 1,000 mg Softgel] Ubidecarenone [Co Q-10] 100 mg PO DAILY 03/02/19 03/02/19 History Allergies Allergy/AdvReac Type Severity Reaction Status Date / Time Qmindhg-Thz-Eze Reductase AdvReac Unknown Verified 03/02/19 13:31 Inhibitor Physical Exam Vitals: Vital Signs Temp Pulse Resp BP Pulse Ox 03/04/19 04:00 98.3 F 74 16 128/60 94 L 03/04/19 00:00 98.6 F 74 16 129/60 94 L 03/03/19 20:00 98.6 F 74 16 129/60 94 L 03/03/19 15:55 97.4 F L 60 18 115/55 96 03/03/19 11:30 97.6 F 58 L 18 98/54 96 Intake and Output 03/03/19 03/04/19 03/04/19 22:59 06:59 14:59 Intake Total 800 Output Total 300 450 Balance 500 -450 Intake: Oral 800 Output: Urine 300 450 Other: Voiding Method Bedside Commode # Voids 1 1 # Bowel Movements 1 Weight 83.6 kg Results - Lab Results Most recent lab results Calcium 9.4 mg/dL (8.4-10.2) 03/02/19 13:07 03/02/19 13:07 03/02/19 13:07 Assessment and Plan Plan: Assessment: 1. Chronic kidney disease stage III secondary to cardiorenal syndrome with baseline creatinine near 2 recently. UA benign. Renal ultrasound from November 2018 revealed no evidence of hydronephrosis. However both kidneys were noted to be small in size. 2. Chronic diastolic CHF with severe mitral regurgitation. 3. UTI with urine culture positive for gram-negative bacilli. Plan: Maintain oral Lasix 60 mg twice daily. Follow-up urine culture. Antibiotics to be resumed. Repeat electrolytes in the morning. Thank you for the consultation. I will continue to follow the patient with you during her hospital stay.
[2019-03-04 10:58] LABS: Digoxin 0.8 ng/mL; Magnesium 1.7 mg/dL (1.6-2.3); Potassium 3.4 mmol/L (3.5-5.1)
[2019-03-04] MEDS ORDERED: DIPHENOX-ATROP 2.5-0.025 MG 1 EACH TAB PO PRN (13:26)
--- NOTE | 2019-03-04 14:08 | P.PN ---
Subjective Progress Note Date: 03/04/19 Gisela Harman is an 83-year-old female who presented to [facility] emergency room due to confusion and hallucinations, family states that patient was diagnosed with urinary tract infection as outpatient she was started on oral antibiotics and initially started to improve however her symptoms worsened again and she was starting to have confusion and shaking and had hallucinations they decided to bring her in to emergency room for further evaluation. In emergency room patient had a urine analysis that failed to reveal any significant infection, however patient had evidence of acute on chronic renal failure with elevated BUN at 58 and elevated creatinine at 2.02 which is above her baseline, she was admitted to medical floor for further evaluation and treatment. When and examined on the medical floor patient was complaining of episodes of diarrhea, she was alert slightly confused in no apparent distress, she denied any pain or discomfort she denies any shortness of breath or cough, there was no fever or chills no headache or dizziness no chest pain no shortness of breath no nausea or vomiting no abdominal pain no diarrhea no burning was urination no frequency or urgency and no hematuria. On 03/04/2019 patient was seen and examined on the telemetry floor she is alert and oriented 3 in no apparent distress, 2 family members are available in the room, today we have positive urine culture for gram-negative bacilli, patient will be started on Rocephin 1 g IV every 24 hours awaiting further culture results. Also stool was negative for C. diff, patient continues to have diarrhea, at this time will start Lomotil po 2.5 mg every 6 hours when necessary. Otherwise patient denies any complaints there is no fever or chills no headache or dizziness no chest pain no shortness of breath no cough no nausea or vomiting no abdominal pain no diarrhea and no urinary symptoms Objective - Vital Signs Vital signs: Vital Signs Temp 97.9 F 03/04/19 11:36 Pulse 90 03/04/19 11:36 Resp 20 03/04/19 11:36 BP 130/57 03/04/19 11:36 Pulse Ox 95 03/04/19 11:36 Intake & Output 03/03/19 03/04/19 03/04/19 18:59 06:59 18:59 Intake Total 1040 400 Output Total 300 750 Balance 740 -750 400 Weight 83.6 kg Intake: Oral 1040 400 Output: Urine 300 750 Other: Voiding Method Bedside Commode # Voids 1 2 # Bowel Movements 1 1 - Exam In general patient is alert slightly confused in no apparent distress HEENT head normocephalic and atraumatic Neck is supple no JVD no goiter no lymphadenopathy Chest exam reveals a few scattered rhonchi no wheezing Cardiac exam reveals regular heart sounds S1 and S2 no gallops no murmurs Abdomen is soft nontender no organomegaly with normal bowel sounds Extremity exam reveals no edema no cyanosis or clubbing Neurological examination reveals no gross focal deficit - Labs CBC & Chem 7: 03/02/19 13:07 03/04/19 10:18 Labs: Abnormal Lab Results - Last 24 Hours (Table) 03/04/19 Range/Units 10:18 Potassium 3.4 L (3.5-5.1) mmol/L Microbiology - Last 24 Hours (Table) 03/02/19 14:21 Urine Culture - Preliminary Urine,Voided Gram Neg Bacilli Assessment and Plan Plan: #1 mental status changes with confusion and hallucinations, this could be related to underlying urinary tract infection which is partially treated, it could also be related to side effect of medications used as outpatient to treat urinary tract infection, will monitor progress psychiatry consultation was requested in the emergency room due to vivid hallucinations. #2 episodes of diarrhea will check stool stool rule out Clostridium difficile colitis. Results are negative patient will be started on Lomotil when necessary #3 acute on chronic renal failure with elevated BUN at 58 and elevated creatinine at 2.02 at this time nephrology consultation was requested #4 underlying history of hyperlipidemia maintained on Pravachol #5 underlying history of hypothyroidism maintained on Synthroid 125 g daily Will check TSH #6 underlying history of depression maintained on Lexapro 10 mg daily #7 underlying history of gout maintained on Zyloprim will check uric acid level, may need to decrease dose of Zyloprim in view of her renal function #8 positive urine culture for gram-negative bacilli, patient will be started on Rocephin 1 g IV every 24 hours Continue other medications otherwise will follow in a.m.
[2019-03-04] MEDS ORDERED: POTASSIUM CHLORIDE ER 20 MEQ TAB.ER PO STA (18:08)
[2019-03-04] MEDS: SODIUM CHLORIDE 0.9% 1,000 ML IV SCH (20:14)
[2019-03-04] MEDS: ACETAMINOPHEN TAB 325 MG TAB PO PRN (20:18)
[2019-03-04] MEDS: MONTELUKAST 10 MG TAB PO SCH (20:18)
[2019-03-04] MEDS: METOPROLOL TARTRATE 25 MG TAB PO SCH (20:18)
[2019-03-05] MEDS: LEVOTHYROXINE 125 MCG TAB PO SCH (06:01)
[2019-03-05 06:23] LABS: Basophils # (A) 0.1 k/uL (0-0.2); Basophils % (A) 1 %; Eosinophils # (A) 0.3 k/uL (0-0.7); Eosinophils % (A) 4 %; HCT 34.5 % (34.0-46.0); HGB 11.2 gm/dL (11.4-16.0); Lymphocytes # (A) 1.5 k/uL (1.0-4.8); Lymphocytes % (A) 18 %; MCHC 32.4 g/dL (31.0-37.0); MCV 101.8 fL (80.0-100.0); Macrocytosis Slight; Monocytes # (A) 0.3 k/uL (0-1.0); Monocytes % (A) 4 %; Neutrophils # (A) 5.9 k/uL (1.3-7.7); Neutrophils % (A) 72 %; Platelet Count 235 k/uL (150-450); RBC 3.39 m/uL (3.80-5.40); RDW 15.9 % (11.5-15.5); WBC 8.2 k/uL (3.8-10.6)
[2019-03-05 06:53] LABS: Albumin 3.8 g/dL (3.5-5.0); Calcium 9.6 mg/dL (8.4-10.2); Potassium 3.7 mmol/L (3.5-5.1); Total Bilirubin 0.6 mg/dL (0.2-1.3); Total Protein 6.3 g/dL (6.3-8.2)
[2019-03-05] MEDS: ALLOPURINOL 300 MG TAB PO SCH (09:00)
[2019-03-05] MEDS: CYANOCOBALAMIN 500 MCG TAB PO SCH (09:00)
[2019-03-05] MEDS: FAMOTIDINE 20 MG TAB PO SCH (09:00)
[2019-03-05] MEDS: FERROUS SULFATE 325 MG TAB PO SCH (09:00)
[2019-03-05] MEDS: ESCITALOPRAM 10 MG TAB PO SCH (09:00)
[2019-03-05] MEDS: PRAVASTATIN SODIUM 40 MG TAB PO SCH (09:00)
[2019-03-05] MEDS: METOLAZONE 2.5 MG TAB PO SCH (09:00)
[2019-03-05] MEDS: ISOSORBIDE MONONITRATE ER 30 MG TAB.ER.24H PO SCH (09:01)
[2019-03-05] MEDS: FUROSEMIDE 20 MG TAB PO SCH ×2 (09:01→16:53)
[2019-03-05] MEDS: ASPIRIN 81 MG PO SCH ×2 (09:01→20:12)
[2019-03-05] MEDS: METOPROLOL TARTRATE 25 MG TAB PO SCH ×2 (09:01→20:12)
[2019-03-05] MEDS: NON FORMULARY DRUG (Omega-3 Fatty Acids/Fish Oil [Fish Oil 1,000 Mg Softgel] 1 CAP) PO SCH (09:03)
--- NOTE | 2019-03-05 11:03 | P.PN ---
Subjective Progress Note Date: 03/05/19 Gisela Harman is an 83-year-old female who presented to [facility] emergency room due to confusion and hallucinations, family states that patient was diagnosed with urinary tract infection as outpatient she was started on oral antibiotics and initially started to improve however her symptoms worsened again and she was starting to have confusion and shaking and had hallucinations they decided to bring her in to emergency room for further evaluation. In emergency room patient had a urine analysis that failed to reveal any significant infection, however patient had evidence of acute on chronic renal failure with elevated BUN at 58 and elevated creatinine at 2.02 which is above her baseline, she was admitted to medical floor for further evaluation and treatment. When and examined on the medical floor patient was complaining of episodes of diarrhea, she was alert slightly confused in no apparent distress, she denied any pain or discomfort she denies any shortness of breath or cough, there was no fever or chills no headache or dizziness no chest pain no shortness of breath no nausea or vomiting no abdominal pain no diarrhea no burning was urination no frequency or urgency and no hematuria. On 03/04/2019 patient was seen and examined on the telemetry floor she is alert and oriented 3 in no apparent distress, 2 family members are available in the room, today we have positive urine culture for gram-negative bacilli, patient will be started on Rocephin 1 g IV every 24 hours awaiting further culture results. Also stool was negative for C. diff, patient continues to have diarrhea, at this time will start Lomotil po 2.5 mg every 6 hours when necessary. Otherwise patient denies any complaints there is no fever or chills no headache or dizziness no chest pain no shortness of breath no cough no nausea or vomiting no abdominal pain no diarrhea and no urinary symptoms On 03/05/2019 patient's alert and oriented 4. Urine culture growing E. coli. Patient remains on Rocephin. Creatinine improving to 1.8 to and bun 35. At this time patient denies chest pain or shortness of breath. Patient denies nausea vomiting or diarrhea. Patient denies any urinary burning or frequency Objective - Vital Signs Vital signs: Vital Signs Temp 98.6 F 03/05/19 08:00 Pulse 77 03/05/19 08:00 Resp 20 03/05/19 08:00 BP 128/77 03/05/19 08:00 Pulse Ox 94 L 03/05/19 08:00 Intake & Output 03/04/19 03/05/19 03/05/19 18:59 06:59 18:59 Intake Total 750 400 0 Output Total 600 400 Balance 750 -200 -400 Weight 84 kg Intake: Oral 750 400 0 Output: Urine 600 400 Other: # Voids 5 1 # Bowel Movements 5 1 - Exam In general patient is alert slightly confused in no apparent distress HEENT head normocephalic and atraumatic Neck is supple no JVD no goiter no lymphadenopathy Chest exam reveals a few scattered rhonchi no wheezing Cardiac exam reveals regular heart sounds S1 and S2 no gallops no murmurs Abdomen is soft nontender no organomegaly with normal bowel sounds Extremity exam reveals no edema no cyanosis or clubbing Neurological examination reveals no gross focal deficit - Labs CBC & Chem 7: 03/05/19 05:39 03/05/19 05:39 Labs: Abnormal Lab Results - Last 24 Hours (Table) 03/04/19 03/05/19 03/05/19 Range/Units 10:18 05:39 05:39 RBC 3.39 L (3.80-5.40) m/uL Hgb 11.2 L (11.4-16.0) gm/dL MCV 101.8 H (80.0-100.0) fL RDW 15.9 H (11.5-15.5) % Sodium 136 L (137-145) mmol/L Potassium 3.4 L (3.5-5.1) mmol/L Chloride 93 L (98-107) mmol/L Carbon Dioxide 36 H (22-30) mmol/L BUN 35 H (7-17) mg/dL Creatinine 1.82 H (0.52-1.04) mg/dL Microbiology - Last 24 Hours (Table) 03/02/19 14:21 Urine Culture - Final Urine,Voided Escherichia coli Assessment and Plan Assessment: #1 mental status changes with confusion and hallucinations, this could be related to underlying urinary tract infection which is partially treated, it could also be related to side effect of medications used as outpatient to treat urinary tract infection, will monitor progress psychiatry consultation was requested in the emergency room due to vivid hallucinations. Per psychiatry no hallucinations reported continue Lexapro. Hallucinations have resolved #2 episodes of diarrhea will check stool stool rule out Clostridium difficile colitis. Results are negative patient will be started on Lomotil when necessary #3 acute on chronic renal failure with elevated BUN at 58 and elevated creatinine at 2.02. Per nephrology maintain on oral Lasix 60 mg twice daily. Creatinine improving to 1.8 to #4 underlying history of hyperlipidemia maintained on Pravachol #5 underlying history of hypothyroidism maintained on Synthroid 125 g daily Will check TSH #6 underlying history of depression maintained on Lexapro 10 mg daily #7 underlying history of gout maintained on Zyloprim will check uric acid level, may need to decrease dose of Zyloprim in view of her renal function #8 positive urine culture for gram-negative bacilli, patient will be started on Rocephin 1 g IV every 24 hours. Urine culture growing E. coli. Continue Rocephin #9. Chronic diastolic congestive heart failure with severe mitral regurg. Patient maintained on Lasix. Nephrology following #10. History of coronary artery disease with prior coronary artery bypass graft surgery #11 chronic persistent atrial fibrillation and not on oral and clinician due to GI bleeding #12. Bradycardia arrhythmia with pause. Cardiology services following. Digoxin has been DC'd per cardiology Metroprolol dose decreased. Digoxin level 0.8 DVT prophylaxis heparin. GI prophylaxis Pepcid PT OT consulted I performed an examination of the patient and discussed their management with the Nurse Practitioner. I have reviewed the Nurse Practitioner's notes and agree with the documented findings and plan of care
[2019-03-05 11:30] LABS: Uric Acid 4.2 mg/dL (3.7-7.4)
[2019-03-05 12:33] LABS: T4, Free (Free Thyroxine) 0.39 ng/dL (0.78-2.19)
--- NOTE | 2019-03-05 13:13 | PN ---
PROGRESS NOTE Patient is seen for followup for acute kidney injury. Patient was admitted to the hospital with mental status changes, is being treated for UTI as outpatient. Currently maintained on antibiotics as well. Serum creatinine has improved from 2.0-1.8. Previous creatinine was about 1.6 mg/dL in November of 2018. Patient is maintained on Lasix but it is oral. She denies any significant complaints at this time. PHYSICAL EXAMINATION: On examination, blood pressure was 128/77, heart rate 77 per minute. She is afebrile. Examination of the heart S1, S2. Examination of the lungs, bilateral breath sounds are heard. Abdomen is soft, nontender. Examination of the lower extremities shows no significant edema. [employer] exam grossly intact. LABS: Show sodium 136, potassium 3.7, chloride 93, CO2 is 36, BUN 35, creatinine 1.8, hemoglobin 11.2 g/dL. ASSESSMENT: 1. Acute kidney injury, nonoliguric, currently improved, possibly prerenal; however, at this time I will continue with the current dose of Lasix. 2. Chronic kidney disease stage III, mainly secondary to cardiorenal syndrome and nephrosclerosis. 3. Chronic diastolic heart failure with severe mitral regurgitation. 4. Urinary tract infection with urine culture growing Escherichia coli. PLAN: Continue with antibiotics. Continue with current dose of diuretics. Repeat labs in a.m. Avoid nephrotoxic agents. Avoid hypotension. MMODL / IJN: [id number] /
--- NOTE | 2019-03-05 15:07 | P.PN ---
Subjective This is Leslie Costa PA-C dictating a progress note on this patient The patient was interviewed and examined by me as well as by Dr. Parada Case discussed with Dr. Parada and he agrees with the plan of care IMPRESSION / ASSESSMENT: CAD status post CABG Persistent A. fib not on anticoagulation secondary to GI bleeding 2.8 second pause, patient was asymptomatic, no further episodes Hypertension Dyslipidemia DAYA on CKD, creatinine 1.82 from 2.02 TSH greater than 100 with low T4 PLAN: Continue current medication regimen Continue to monitor telemetry and electrolytes Management of elevated TSH by primary team HPI/interval history Patient is an 83-year-old female with a past medical history significant for CAD status post CABG, persistent atrial fibrillation not on anticoagulation due to GI bleeding, hypertension, dyslipidemia, arthritis, CKD who presented to the emergency department with altered mental status. She was recently diagnosed with urinary tract infection and started on antibiotics. Her labs were significant for elevated BUN and creatinine of 58 and 2.02 respectively. On telemetry she was noted to have a 2.8 second pause. There was concern for possible digoxin toxicity. Her digoxin was stopped and her metoprolol was decreased. Patient has not had any further episodes of pauses. Patient seen and examined resting comfortably in bed. Currently denies any complaints of chest pain, shortness of breath, dizziness, lightheadedness or syncope. Has been getting up to some bathroom without any dizziness or difficulties. EXAMINATION Temperature 97.6F, pulse 70, respirations 20, blood pressure 109/58, oxygen saturation 96% 2 L nasal cannula Patient seen and examined sitting up at the side of the bed, in no acute distress Lungs are clear to auscultation bilaterally, no wheezing rhonchi or crackles Heart is irregular, systolic murmur noted No elevated JVD No lower extremity edema REVIEW OF LABS, ECG EKG showed atrial fibrillation with slow ventricular response, rate 51 WBC 8.2, hemoglobin 11.2, platelets 235, potassium 3.7, BUN 35, creatinine 0.82 TSH greater than 100, free T4 low at 0.39 Digoxin level was 0.8 Previous echocardiogram in showing EF 55-60%, severe MR Objective - Vital Signs Vital signs: Vital Signs Temp 97.6 F 03/05/19 12:00 Pulse 70 03/05/19 12:00 Resp 20 03/05/19 12:00 BP 109/58 03/05/19 12:00 Pulse Ox 96 03/05/19 12:00 Intake & Output 03/04/19 03/05/19 03/05/19 18:59 06:59 18:59 Intake Total 750 400 100 Output Total 600 400 Balance 750 -200 -300 Weight 84 kg Intake: Oral 750 400 100 Output: Urine 600 400 Other: # Voids 5 1 # Bowel Movements 5 1 - Labs CBC & Chem 7: 03/05/19 05:39 03/05/19 05:39 Labs: Abnormal Lab Results - Last 24 Hours (Table) 03/05/19 03/05/19 03/05/19 Range/Units 05:39 05:39 05:39 RBC 3.39 L (3.80-5.40) m/uL Hgb 11.2 L (11.4-16.0) gm/dL MCV 101.8 H (80.0-100.0) fL RDW 15.9 H (11.5-15.5) % Sodium 136 L (137-145) mmol/L Chloride 93 L (98-107) mmol/L Carbon Dioxide 36 H (22-30) mmol/L BUN 35 H (7-17) mg/dL Creatinine 1.82 H (0.52-1.04) mg/dL TSH >100.000 H (0.465-4.680) mIU/L Free T4 0.39 L (0.78-2.19) ng/dL Microbiology - Last 24 Hours (Table) 03/02/19 14:21 Urine Culture - Final Urine,Voided Escherichia coli
--- NOTE | 2019-03-05 15:12 | CDI ---
Documentation Clarification Form Date: 03/06/2019 2:44:31 PM From: Mirian Avelar RN CCDS Admit Date: 03/04/2019 11:32:00 AM Patient Name: Gisela Harman Visit Number: [id number] Discharge Date: ATTENTION: The Clinical Documentation Specialists (CDI) and [facility] Coding Staff appreciate your assistance in clarifying documentation. Please respond to the clarification below the line at the bottom and electronically sign. The CDI & [facility] Coding staff will review the response and follow-up if needed. Please note: Queries are made part of the Legal Health Record. If you have any questions, please contact the author of this message via ITS. Dr. Susan Virk Mental Status Change is documented in your H & P 03/03/2019 and Progress notes 03/04/2019 and 03/05/2019 History/Risk Factors: 83 year old female presents to the ED for confusion and hallucinations. Medical History Atrial Fibrillation; CAD; Angina; heart Failure ; CKD 3 Clinical Indicators: Psychiatric consult 03/03 Delirium due to her recent medical condition UTI. She is currently stable and not delirious . H& P Mental status changes with confusion and hallucinations this could be related to underlying urinary tract infection which is partially treated, it could also be related to side effect of medications was as outpatient tot treat urinary tract infection. Labs: Urine culture ecoli CT Brain diffuse age related cerebral atrophy and chronic small vessel ischemic change noted. Treatment: Rocpehin ivpb 03/04/2019 In your professional opinion, please clarify the etiology of the Mental Status change, if known. * Metabolic Encephalopathy due to urinary tract infection. * Toxic Encephalopathy due to Medication * Other unrelated * Unable to determine (Last Revision: August 2017) metoblic encephalopathy due to Urinary tract infection MTDD
[2019-03-05] MEDS: SODIUM CHLORIDE 0.9% 1,000 ML IV SCH (16:54)
[2019-03-05] MEDS: MONTELUKAST 10 MG TAB PO SCH (20:12)
[2019-03-05] MEDS: HEPARIN SODIUM,PORCINE 5,000 UNIT/ML 1 ML VIAL SQ SCH (20:13)
[2019-03-06 06:14] LABS: Anisocytosis Slight; Basophils # (A) 0.2 k/uL (0-0.2); Basophils % (A) 2 %; Eosinophils # (A) 0.3 k/uL (0-0.7); Eosinophils % (A) 4 %; HCT 36.8 % (34.0-46.0); HGB 11.3 gm/dL (11.4-16.0); Hypochromasia Slight; Lymphocytes # (A) 1.1 k/uL (1.0-4.8); Lymphocytes % (A) 12 %; MCHC 30.6 g/dL (31.0-37.0); MCV 104.4 fL (80.0-100.0); Macrocytosis Moderate; Mean Platelet Volume 6.5; Monocytes # (A) 0.4 k/uL (0-1.0); Monocytes % (A) 4 %; Neutrophils # (A) 6.6 k/uL (1.3-7.7); Neutrophils % (A) 76 %; Platelet Count 216 k/uL (150-450); RBC 3.52 m/uL (3.80-5.40); RDW 16.2 % (11.5-15.5); WBC 8.7 k/uL (3.8-10.6)
[2019-03-06 06:26] LABS: Albumin 3.8 g/dL (3.5-5.0); Calcium 9.4 mg/dL (8.4-10.2); Potassium 3.2 mmol/L (3.5-5.1); Total Bilirubin 0.5 mg/dL (0.2-1.3); Total Protein 6.2 g/dL (6.3-8.2)
[2019-03-06] MEDS: LEVOTHYROXINE 125 MCG TAB PO SCH (06:44)
[2019-03-06] MEDS ORDERED: Potassium Replacement Protocol 1 EACH MISC MISCELLANE PRN (08:22)
[2019-03-06] MEDS: METOPROLOL TARTRATE 25 MG TAB PO SCH ×2 (09:20→20:14)
[2019-03-06] MEDS: PRAVASTATIN SODIUM 40 MG TAB PO SCH (09:20)
[2019-03-06] MEDS: FERROUS SULFATE 325 MG TAB PO SCH (09:20)
[2019-03-06] MEDS: ESCITALOPRAM 10 MG TAB PO SCH (09:20)
[2019-03-06] MEDS: FUROSEMIDE 20 MG TAB PO SCH ×2 (09:21→18:28)
[2019-03-06] MEDS: POTASSIUM CHLORIDE ER 20 MEQ TAB.ER PO SCH ×2 (09:21→11:33)
[2019-03-06] MEDS: HEPARIN SODIUM,PORCINE 5,000 UNIT/ML 1 ML VIAL SQ SCH ×2 (09:21→20:14)
[2019-03-06] MEDS: ASPIRIN 81 MG PO SCH ×2 (09:21→20:14)
[2019-03-06] MEDS: FAMOTIDINE 20 MG TAB PO SCH (09:21)
[2019-03-06] MEDS: ISOSORBIDE MONONITRATE ER 30 MG TAB.ER.24H PO SCH (09:21)
[2019-03-06] MEDS: ALLOPURINOL 300 MG TAB PO SCH (09:21)
[2019-03-06] MEDS: CYANOCOBALAMIN 500 MCG TAB PO SCH (09:21)
[2019-03-06] MEDS: ACETAMINOPHEN TAB 325 MG TAB PO PRN ×2 (09:25→21:10)
[2019-03-06] MEDS ORDERED: Magnesium Replacement Protocol 1 EACH MISC MISCELLANE PRN (09:37)
--- NOTE | 2019-03-06 10:04 | P.PN ---
Subjective Progress Note Date: 03/06/19 Gisela Harman is an 83-year-old female who presented to [facility] emergency room due to confusion and hallucinations, family states that patient was diagnosed with urinary tract infection as outpatient she was started on oral antibiotics and initially started to improve however her symptoms worsened again and she was starting to have confusion and shaking and had hallucinations they decided to bring her in to emergency room for further evaluation. In emergency room patient had a urine analysis that failed to reveal any significant infection, however patient had evidence of acute on chronic renal failure with elevated BUN at 58 and elevated creatinine at 2.02 which is above her baseline, she was admitted to medical floor for further evaluation and treatment. When and examined on the medical floor patient was complaining of episodes of diarrhea, she was alert slightly confused in no apparent distress, she denied any pain or discomfort she denies any shortness of breath or cough, there was no fever or chills no headache or dizziness no chest pain no shortness of breath no nausea or vomiting no abdominal pain no diarrhea no burning was urination no frequency or urgency and no hematuria. On 03/04/2019 patient was seen and examined on the telemetry floor she is alert and oriented 3 in no apparent distress, 2 family members are available in the room, today we have positive urine culture for gram-negative bacilli, patient will be started on Rocephin 1 g IV every 24 hours awaiting further culture results. Also stool was negative for C. diff, patient continues to have diarrhea, at this time will start Lomotil po 2.5 mg every 6 hours when necessary. Otherwise patient denies any complaints there is no fever or chills no headache or dizziness no chest pain no shortness of breath no cough no nausea or vomiting no abdominal pain no diarrhea and no urinary symptoms On 03/05/2019 patient's alert and oriented 3. Urine culture growing E. coli. Patient remains on Rocephin. Creatinine improving to 1.8 to and bun 35. At this time patient denies chest pain or shortness of breath. Patient denies nausea vomiting or diarrhea. Patient denies any urinary burning or frequency On 03/06/2019 patient's alert and oriented 3. Creatinine improving to 1.81 bun 34. TSH level greater than 100. Did call patient's pharmacy patient has not had refill since September. Believe patient has not been taking Synthroid. At this time patient denies chest pain or shortness of breath. Patient denies nausea vomiting or diarrhea. Patient denies any urinary burning or frequency Objective - Vital Signs Vital signs: Vital Signs Temp 97.6 F 03/06/19 04:00 Pulse 72 03/06/19 04:00 Resp 18 03/06/19 04:00 BP 111/63 03/06/19 04:00 Pulse Ox 93 L 03/06/19 04:00 Intake & Output 03/05/19 03/06/19 03/06/19 18:59 06:59 18:59 Intake Total 190 Output Total 400 Balance -210 Weight 80.7 kg Intake: Oral 190 Output: Urine 400 Other: Voiding Method Toilet # Voids 1 4 # Bowel Movements 1 - Exam In general patient is alert slightly confused in no apparent distress HEENT head normocephalic and atraumatic Neck is supple no JVD no goiter no lymphadenopathy Chest exam reveals a few scattered rhonchi no wheezing Cardiac exam reveals regular heart sounds S1 and S2 no gallops no murmurs Abdomen is soft nontender no organomegaly with normal bowel sounds Extremity exam reveals no edema no cyanosis or clubbing Neurological examination reveals no gross focal deficit - Labs CBC & Chem 7: 03/06/19 05:51 03/06/19 05:51 Labs: Abnormal Lab Results - Last 24 Hours (Table) 03/05/19 03/06/19 03/06/19 Range/Units 05:39 05:51 05:51 RBC 3.52 L (3.80-5.40) m/uL Hgb 11.3 L (11.4-16.0) gm/dL MCV 104.4 H (80.0-100.0) fL MCHC 30.6 L (31.0-37.0) g/dL RDW 16.2 H (11.5-15.5) % Potassium 3.2 L (3.5-5.1) mmol/L Chloride 93 L (98-107) mmol/L Carbon Dioxide 34 H (22-30) mmol/L BUN 34 H (7-17) mg/dL Creatinine 1.81 H (0.52-1.04) mg/dL Magnesium (1.6-2.3) mg/dL Total Protein 6.2 L (6.3-8.2) g/dL TSH >100.000 H (0.465-4.680) mIU/L Free T4 0.39 L (0.78-2.19) ng/dL 03/06/19 Range/Units 05:51 RBC (3.80-5.40) m/uL Hgb (11.4-16.0) gm/dL MCV (80.0-100.0) fL MCHC (31.0-37.0) g/dL RDW (11.5-15.5) % Potassium (3.5-5.1) mmol/L Chloride (98-107) mmol/L Carbon Dioxide (22-30) mmol/L BUN (7-17) mg/dL Creatinine (0.52-1.04) mg/dL Magnesium 1.4 L (1.6-2.3) mg/dL Total Protein (6.3-8.2) g/dL TSH (0.465-4.680) mIU/L Free T4 (0.78-2.19) ng/dL Assessment and Plan Assessment: #1 mental status changes with confusion and hallucinations, this could be related to underlying urinary tract infection which is partially treated, it could also be related to side effect of medications used as outpatient to treat urinary tract infection, will monitor progress psychiatry consultation was requested in the emergency room due to vivid hallucinations. Per psychiatry no hallucinations reported continue Lexapro. Hallucinations have resolved #2 episodes of diarrhea will check stool stool rule out Clostridium difficile colitis. Results are negative patient will be started on Lomotil when necessary #3 acute on chronic renal failure with elevated BUN at 58 and elevated creatinine at 2.02. Per nephrology maintain on oral Lasix 60 mg twice daily. Creatinine improving to 1.81 #4 underlying history of hyperlipidemia maintained on Pravachol #5 underlying history of hypothyroidism maintained on Synthroid 125 g daily. TS H level greater than 100. Did call patient's pharmacy. Patient has not had refill on Synthroid since September, I believe patient has not been taking her Synthroid at home #6 underlying history of depression maintained on Lexapro 10 mg daily #7 underlying history of gout maintained on Zyloprim will check uric acid level, may need to decrease dose of Zyloprim in view of her renal function #8 positive urine culture for gram-negative bacilli, patient will be started on Rocephin 1 g IV every 24 hours. Urine culture growing E. coli. Continue Rocephin #9. Chronic diastolic congestive heart failure with severe mitral regurg. Patient maintained on Lasix. Nephrology following #10. History of coronary artery disease with prior coronary artery bypass graft surgery #11 chronic persistent atrial fibrillation and not on oral and clinician due to GI bleeding #12. Bradycardia arrhythmia with pause. Cardiology services following. Digoxin has been DC'd per cardiology Metroprolol dose decreased. Digoxin level 0.8 DVT prophylaxis heparin. GI prophylaxis Pepcid PT OT consulted Social consulted for possible ECF upon discharge I performed an examination of the patient and discussed their management with the Nurse Practitioner. I have reviewed the Nurse Practitioner's notes and agree with the documented findings and plan of care
[2019-03-06] MEDS: MAGNESIUM SULFATE-D5W PMX 1 GM in DEXTROSE/WATER 1 100ML.BAG IVPB SCH ×3 (10:42→18:28)
[2019-03-06] MEDS ORDERED: HYDROmorphone 0.5 MG/0.5 ML SYRINGE IVP STA (11:29)
--- NOTE | 2019-03-06 12:33 | P.PN ---
Subjective Progress Note Date: 03/06/19 This is a pleasant 83-year-old female patient who was known to her service from before with an extensive past medical history consistent of coronary artery disease and prior coronary artery bypass grafting, chronic persistent atrial fibrillation not on any oral anticoagulation due to GI bleeding, hypertension, dyslipidemia, as well as multiple comorbid conditions, was admitted to the hospital with a change in mental status. The patient is a very poor historian and as a matter of fact she is confused. The history was taken from the chart as well as from the nurse taking care of the patient. The patient presented to the emergency room hallucinating. Apparently she was diagnosed with UTI recently and she was started on antibiotic as an outpatient. Since then she has been more confused and decided to come to the emergency room for further evaluation. In the ER the patient was found to be in acute renal failure. She does have a component of chronic renal failure but she has acute on chronic renal failure. We involved in the care of the patient because of cardiac arrhythmia in the term of bradycardia arrhythmia as well as sinus pause. The patient does have chronic persistent atrial fibrillation. the patient's Lanoxin had been discontinued, and the dose of beta lillie decreased to 25 mg one tablet by mouth twice a day which we will continue. Initially this morning, patient was feeling well and was quite eagerly anticipating discharge home. Later on in the morning she developed an episode of chest discomfort, which worsened with deep breathing. For this reason we will continue to monitor for another 24 hours. No Lanoxin, continue current dose of beta lillie. Objective - Vital Signs Vital signs: Vital Signs Temp 97.6 F 03/06/19 04:00 Pulse 72 03/06/19 04:00 Resp 18 03/06/19 04:00 BP 111/63 03/06/19 04:00 Pulse Ox 93 L 03/06/19 04:00 Intake & Output 03/05/19 03/06/19 03/06/19 18:59 06:59 18:59 Intake Total 190 100 Output Total 400 Balance -210 100 Weight 80.7 kg Intake: Oral 190 100 Output: Urine 400 Other: Voiding Method Toilet # Voids 1 4 # Bowel Movements 1 - Exam PHYSICAL EXAMINATION: GENERAL:83-year-old female in no acute distress at the time of my examination HEENT: Head is atraumatic, normocephalic. Pupils equal, round. Sclera anicteric. Conjunctiva are clear. Mucous membranes of the mouth are moist. Neck is supple. There is no elevated jugular venous pressure.No carotid bruit is heard. HEART EXAMINATION: [Heart S1, S2 irregularly irregular systolic murmur heard.] CHEST EXAMINATION:[ Lungs are clear to auscultation and precussion. No chest wall tenderness is noted on palpation or with deep breathing.] ABDOMEN: [ Soft, nontender. Bowel sounds are heard. No organomegaly noted]. EXTREMITIES:[ 2+ peripheral pulses with no evidence of peripheral edema and no calf tenderness noted]. NEUROLOGIC [patient is awake, alert and oriented X3.] . - Labs CBC & Chem 7: 03/06/19 05:51 03/06/19 05:51 Labs: Abnormal Lab Results - Last 24 Hours (Table) 03/05/19 03/06/19 03/06/19 Range/Units 05:39 05:51 05:51 RBC 3.52 L (3.80-5.40) m/uL Hgb 11.3 L (11.4-16.0) gm/dL MCV 104.4 H (80.0-100.0) fL MCHC 30.6 L (31.0-37.0) g/dL RDW 16.2 H (11.5-15.5) % Potassium 3.2 L (3.5-5.1) mmol/L Chloride 93 L (98-107) mmol/L Carbon Dioxide 34 H (22-30) mmol/L BUN 34 H (7-17) mg/dL Creatinine 1.81 H (0.52-1.04) mg/dL Magnesium (1.6-2.3) mg/dL Total Protein 6.2 L (6.3-8.2) g/dL Free T4 0.39 L (0.78-2.19) ng/dL 03/06/19 Range/Units 05:51 RBC (3.80-5.40) m/uL Hgb (11.4-16.0) gm/dL MCV (80.0-100.0) fL MCHC (31.0-37.0) g/dL RDW (11.5-15.5) % Potassium (3.5-5.1) mmol/L Chloride (98-107) mmol/L Carbon Dioxide (22-30) mmol/L BUN (7-17) mg/dL Creatinine (0.52-1.04) mg/dL Magnesium 1.4 L (1.6-2.3) mg/dL Total Protein (6.3-8.2) g/dL Free T4 (0.78-2.19) ng/dL Assessment and Plan Plan: Assessment and plan #1 change in mental status #2 acute on chronic renal failure #3 bradycardia arrhythmia #4 sinus pause episode of 3.8 seconds #5 chronic persistent atrial fibrillation #6 severe mitral regurgitation #7 coronary artery disease Plan we will continue the beta lillie at 25 mg one tablet by mouth twice a day, Lanoxin has been discontinued and we will continue to hold this medication. We will continue to observe the patient for another 24 hours, if stable discharge home tomorrow. Follow-up appointment in the office with Dr. Parada in 2 weeks post discharge. DNP note has been reviewed, I agree with a documented findings and plan of care. Patient was seen and examined.
--- NOTE | 2019-03-06 15:11 | PN ---
PROGRESS NOTE Patient is seen for followup for acute kidney injury on top of chronic kidney disease. Her creatinine is stable at about 1.8 mg/dL. Patient states she feels well. She is maintained on oral diuretics. PHYSICAL EXAMINATION: Blood pressure is 111/63, heart rate is 72 per minute she is afebrile examination of the heart S1, S2. Examination of the lungs, bilateral breath sounds are heard. Abdomen is soft, non-tender. Examination of the lower extremities shows no significant edema. [employer] exam grossly intact. LABS: Show sodium 137, potassium 3.2, CO2 is 34, BUN 34, creatinine 1.8, hemoglobin 11.3 g/dL. ASSESSMENT: 1. Acute kidney injury, currently improved. Renal function fairly stable. Continue the same dose of Lasix. 2. 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 Baseline creatinine around 1.8 mg/dL. 3. Diastolic heart failure. 4. Urinary tract infection with urine culture growing Escherichia coli. 5. Severe hypothyroidism with TSH more than 100, started on supplementation. PLAN: Patient is stable for discharge from nephrology standpoint. Follow up as outpatient for CKD. And continue the same dose of Lasix. MMODL / IJN: [id number] /
[2019-03-06] MEDS: SODIUM CHLORIDE 0.9% 1,000 ML IV SCH (18:29)
[2019-03-06] MEDS: MONTELUKAST 10 MG TAB PO SCH (20:14)
[2019-03-07] MEDS ORDERED: LEVOTHYROXINE 125 MCG TAB ONE (06:23)
[2019-03-07] MEDS: LEVOTHYROXINE 125 MCG TAB PO SCH (07:43)
[2019-03-07 07:48] LABS: Anisocytosis Slight; Basophils # (A) 0.1 k/uL (0-0.2); Basophils % (A) 1 %; Eosinophils # (A) 0.5 k/uL (0-0.7); Eosinophils % (A) 5 %; HCT 37.3 % (34.0-46.0); HGB 11.5 gm/dL (11.4-16.0); Lymphocytes # (A) 1.6 k/uL (1.0-4.8); Lymphocytes % (A) 16 %; MCHC 30.7 g/dL (31.0-37.0); MCV 104.1 fL (80.0-100.0); Macrocytosis Moderate; Mean Platelet Volume 6.8; Monocytes # (A) 0.4 k/uL (0-1.0); Monocytes % (A) 4 %; Neutrophils # (A) 7.5 k/uL (1.3-7.7); Neutrophils % (A) 73 %; Platelet Count 226 k/uL (150-450); RBC 3.59 m/uL (3.80-5.40); RDW 16.2 % (11.5-15.5); WBC 10.3 k/uL (3.8-10.6)
[2019-03-07 08:04] LABS: Albumin 4.1 g/dL (3.5-5.0); Calcium 9.8 mg/dL (8.4-10.2); Magnesium 2.4 mg/dL (1.6-2.3); Potassium 3.8 mmol/L (3.5-5.1); Total Bilirubin 0.5 mg/dL (0.2-1.3); Total Protein 6.8 g/dL (6.3-8.2)
[2019-03-07 08:48] VITALS: TEMP 98.2
[2019-03-07] MEDS ORDERED: ALLOPURINOL 100 MG TAB PO SCH (09:00)
[2019-03-07] MEDS: HEPARIN SODIUM,PORCINE 5,000 UNIT/ML 1 ML VIAL SQ SCH (10:03)
[2019-03-07] MEDS: CYANOCOBALAMIN 500 MCG TAB PO SCH (10:04)
[2019-03-07] MEDS: ESCITALOPRAM 10 MG TAB PO SCH (10:04)
[2019-03-07] MEDS: FUROSEMIDE 20 MG TAB PO SCH (10:04)
[2019-03-07] MEDS: ASPIRIN 81 MG PO SCH (10:04)
[2019-03-07] MEDS: METOPROLOL TARTRATE 25 MG TAB PO SCH (10:04)
[2019-03-07] MEDS: ISOSORBIDE MONONITRATE ER 30 MG TAB.ER.24H PO SCH (10:04)
[2019-03-07] MEDS: FERROUS SULFATE 325 MG TAB PO SCH (10:04)
[2019-03-07] MEDS: METOLAZONE 2.5 MG TAB PO SCH (10:04)
[2019-03-07] MEDS: FAMOTIDINE 20 MG TAB PO SCH (10:04)
[2019-03-07] MEDS: PRAVASTATIN SODIUM 40 MG TAB PO SCH (10:05)
--- NOTE | 2019-03-07 10:52 | P.PN ---
Subjective Patient is seen in follow-up for acute kidney injury on chronic any disease. GFR is currently at baseline. Patient denies any chest pain or shortness of breath. Urine output is good. She is eager to go home. Vital signs are stable. General: The patient appeared well nourished and normally developed. HEENT: Head exam is unremarkable. Neck is without jugular venous distension. LUNGS: Lungs are clear to auscultation and percussion. Breath sounds decreased. HEART: Rate and Rhythm are regular. First and second heart sounds normal. No murmurs, rubs or gallops. ABDOMEN: Abdominal exam reveals normal bowel sounds. Non-tender and non-distende d. EXTREMITITES: Trace edema. Objective - Vital Signs Vital signs: Vital Signs Temp 98.2 F 03/07/19 08:00 Pulse 72 03/07/19 08:00 Resp 18 03/07/19 08:00 BP 121/68 03/07/19 08:00 Pulse Ox 98 03/07/19 08:00 Intake & Output 03/06/19 03/07/19 03/07/19 18:59 06:59 18:59 Intake Total 660 340 0 Output Total 120 Balance 540 340 0 Weight 81.2 kg Intake: Intake, IV Titration 310 340 Amount Magnesium Sulfate-D5w Pmx 200 100 1 gm In Dextrose/Water 1 100ml.bag @ 100 mls/hr IVPB Q1H [facility] Rx#: [id number] Sodium Chloride 0.9% 1, 60 240 000 ml @ 20 mls/hr IV . Q24H [facility] Rx#:[id number] cefTRIAXone 1 gm In 50 Sodium Chloride 0.9% 50 ml @ 100 mls/hr IVPB Q24HR [facility] Rx#:[id number] Oral 350 0 Output: Urine 120 Other: Voiding Method Toilet # Voids 2 # Bowel Movements 1 - Labs CBC & Chem 7: 03/06/19 05:51 03/06/19 05:51 Assessment and Plan Plan: Assessment: 1. Chronic kidney disease stage III secondary to cardiorenal syndrome with baseline creatinine near 1.7-2 recently. UA benign. Renal ultrasound from November 2018 revealed no evidence of hydronephrosis. However both kidneys were noted to be small in size. 2. Chronic diastolic CHF with severe mitral regurgitation. 3. UTI with urine culture positive for E. coli maintained on antibiotics. 4. Hypokalemia secondary to diuretics. Status post replacement. 5. Hypomagnesemia secondary to diuresis. Status post repletion. Plan: Maintain oral Lasix 60 mg twice daily. Avoid nephrotoxins. Repeat electrolytes in the morning.
--- NOTE | 2019-03-07 11:16 | P.DS ---
Providers Date of admission: 03/04/19 11:32 Expected date of discharge: 03/07/19 Attending physician: Susan Virk Consults: 03/02/19 15:35 Consult Physician Routine Consulting Provider: Psychiatry - [facility] Consult Reason/Comments: Hallucinations Do you want consulting provider notified?: Yes 03/03/19 11:00 Consult Physician Routine Consulting Provider: [facility] Consult Reason/Comments: afib and 2.0 pauses Do you want consulting provider notified?: Yes 03/03/19 12:46 Consult Physician Routine Consulting Provider: Marta Marshall Consult Reason/Comments: acute on chronic renal failure Do you want consulting provider notified?: Yes Primary care physician: Tiera [facility] Course: Discharge diagnosis #1 mental status changes with confusion and hallucinations, this could be related to underlying urinary tract infection which is partially treated, it could also be related to side effect of medications used as outpatient to treat urinary tract infection, will monitor progress psychiatry consultation was requested in the emergency room due to vivid hallucinations. Per psychiatry no hallucinations reported continue Lexapro. Hallucinations have resolved #2 episodes of diarrhea will check stool stool rule out Clostridium difficile colitis. Results are negative patient will be started on Lomotil when necessary #3 acute on chronic renal failure with elevated BUN at 58 and elevated creatinine at 2.02. Per nephrology maintain on oral Lasix 60 mg twice daily. Creatinine improving to 1.81. Patient has been cleared for discharge from nephrology standpoint. Patient to follow-up outpatient maintain on same dose of Lasix per nephrology #4 underlying history of hyperlipidemia maintained on Pravachol #5 underlying history of hypothyroidism maintained on Synthroid 125 g daily. TSH level greater than 100. Did call patient's pharmacy. Patient has not had refill on Synthroid since September, I believe patient has not been taking her Synthroid at home #6 underlying history of depression maintained on Lexapro 10 mg daily #7 underlying history of gout maintained on Zyloprim will check uric acid level, may need to decrease dose of Zyloprim in view of her renal function #8 positive urine culture for gram-negative bacilli, patient will be started on Rocephin 1 g IV every 24 hours. Urine culture growing E. coli. Continue Rocephin. Patient will be DC'd on Ceftin for 7 more days #9. Chronic diastolic congestive heart failure with severe mitral regurg. Patient maintained on Lasix. Nephrology following #10. History of coronary artery disease with prior coronary artery bypass graft surgery #11 chronic persistent atrial fibrillation and not on oral and clinician due to GI bleeding #12. Bradycardia arrhythmia with pause. Cardiology services following. Digoxin has been DC'd per cardiology Metroprolol dose decreased. Digoxin level 0.8 she has been cleared by cardiology services. Discussed case with cardiology [employer] Dr. Foreman. Digoxin has been DC'd. Lopressor has been decreased Hospital course Gisela Harman is an 83-year-old female who presented to [facility] emergency room due to confusion and hallucinations, family states that patient was diagnosed with urinary tract infection as outpatient she was started on oral antibiotics and initially started to improve however her symptoms worsened again and she was starting to have confusion and shaking and had hallucinations they decided to bring her in to emergency room for further evaluation. In emergency room patient had a urine analysis that failed to reveal any significant infection, however patient had evidence of acute on chronic renal failure with elevated BUN at 58 and elevated creatinine at 2.02 which is above her baseline, she was admitted to medical floor for further evaluation and treatment. When and examined on the medical floor patient was complaining of episodes of diarrhea, she was alert slightly confused in no apparent distress, she denied any pain or discomfort she denies any shortness of breath or cough, there was no fever or chills no headache or dizziness no chest pain no shortness of breath no nausea or vomiting no abdominal pain no diarrhea no burning was urination no frequency or urgency and no hematuria. On 03/04/2019 patient was seen and examined on the telemetry floor she is alert and oriented 3 in no apparent distress, 2 family members are available in the room, today we have positive urine culture for gram-negative bacilli, patient will be started on Rocephin 1 g IV every 24 hours awaiting further culture results. Also stool was negative for C. diff, patient continues to have diarrhea, at this time will start Lomotil po 2.5 mg every 6 hours when necessary. Otherwise patient denies any complaints there is no fever or chills no headache or dizziness no chest pain no shortness of breath no cough no nausea or vomiting no abdominal pain no diarrhea and no urinary symptoms On 03/05/2019 patient's alert and oriented 3. Urine culture growing E. coli. Patient remains on Rocephin. Creatinine improving to 1.8 to and bun 35. At this time patient denies chest pain or shortness of breath. Patient denies nausea vomiting or diarrhea. Patient denies any urinary burning or frequency On 03/06/2019 patient's alert and oriented 3. Creatinine improving to 1.81 bun 34. TSH level greater than 100. Did call patient's pharmacy patient has not had refill since September. Believe patient has not been taking Synthroid. At this time patient denies chest pain or shortness of breath. Patient denies nausea vomiting or diarrhea. Patient denies any urinary burning or frequency 03/07/2019 patient is alert and resting comfortably in bed. Patient has been cleared by both cardiology and nephrology services. Digoxin has been DC'd and Lopressor decreased. Patient has been A. fib in the 70s and 80s on monitor. Patient to maintain on current dose of Synthroid due to patient not taking it over the past few months per pharmacy. Will recheck TSH level in 2 weeks. At this time patient denies chest pain or shortness of breath. Patient denies nausea vomiting or diarrhea. Patient denies any urinary burning or frequency. I performed an examination of the patient and discussed their management with the Nurse Practitioner. I have reviewed the Nurse Practitioner's notes and agree with the documented findings and plan of care Patient Condition at Discharge: Stable Plan - Discharge Summary New Discharge Prescriptions: New Cefuroxime Axetil [Ceftin] 500 mg PO BID 7 Days #14 tab Diphenox-Atrop 2.5-0.025 mg [Lomotil] 1 each PO Q6HR PRN tab PRN Reason: Diarrhea Metoprolol Tartrate [Lopressor] 25 mg PO BID #0 tab Continue Cyanocobalamin [Vitamin B-12] 500 mcg PO DAILY Aspirin [Adult Low Dose Aspirin EC] 81 mg PO BID Allopurinol [Zyloprim] 300 mg PO DAILY Escitalopram [Lexapro] 10 mg PO DAILY Nitroglycerin Sl Tabs [Nitrostat] 0.4 mg SUBLINGUAL Q5M PRN PRN Reason: Chest Pain Montelukast [Singulair] 10 mg PO HS #30 tab Levothyroxine Sodium [Synthroid] 125 mcg PO DAILY@0630 30 Days #30 tab Isosorbide Mononitrate [Isosorbide Mononitrate ER] 30 mg PO DAILY Metolazone [Zaroxolyn] 2.5 mg PO MOWEFR Ranitidine HCl [Zantac] 150 mg PO BID Pravastatin Sodium [Pravachol] 40 mg PO DAILY Furosemide [Lasix] 60 mg PO BID@0900,1600 30 Days #60 tab Corder-3 Fatty Acids/Fish Oil [Fish Oil 1,000 mg Softgel] 1 cap PO DAILY Ubidecarenone [Co Q-10] 100 mg PO DAILY Ferrous Sulfate [Iron (65 MG Elemental)] 325 mg PO DAILY ALPRAZolam [Xanax] 0.25 mg PO Q6H PRN 14 Days #56 tab PRN Reason: Anxiety Discontinued Digoxin [Lanoxin] 62.5 mcg PO DAILY Metoprolol Tartrate [Lopressor] 50 mg PO TID Discharge Medication List Cyanocobalamin [Vitamin B-12] 500 mcg PO DAILY 10/03/13 [History] Aspirin [Adult Low Dose Aspirin EC] 81 mg PO BID 01/10/16 [History] Allopurinol [Zyloprim] 300 mg PO DAILY 07/20/18 [History] Escitalopram [Lexapro] 10 mg PO DAILY 07/20/18 [History] Nitroglycerin Sl Tabs [Nitrostat] 0.4 mg SUBLINGUAL Q5M PRN 07/20/18 [History] Montelukast [Singulair] 10 mg PO HS #30 tab 09/18/18 [Rx] Levothyroxine Sodium [Synthroid] 125 mcg PO DAILY@0630 30 Days #30 tab 10/06/18 [Rx] Isosorbide Mononitrate [Isosorbide Mononitrate ER] 30 mg PO DAILY 10/22/18 [History] Metolazone [Zaroxolyn] 2.5 mg PO MOWEFR 10/22/18 [History] Pravastatin Sodium [Pravachol] 40 mg PO DAILY 11/23/18 [History] Ranitidine HCl [Zantac] 150 mg PO BID 11/23/18 [History] Furosemide [Lasix] 60 mg PO BID@0900,1600 30 Days #60 tab 11/30/18 [Rx] Ferrous Sulfate [Iron (65 MG Elemental)] 325 mg PO DAILY 03/02/19 [History] Corder-3 Fatty Acids/Fish Oil [Fish Oil 1,000 mg Softgel] 1 cap PO DAILY 03/02/19 [History] Ubidecarenone [Co Q-10] 100 mg PO DAILY 03/02/19 [History] ALPRAZolam [Xanax] 0.25 mg PO Q6H PRN 14 Days #56 tab 03/07/19 [Rx] Cefuroxime Axetil [Ceftin] 500 mg PO BID 7 Days #14 tab 03/07/19 [Rx] Diphenox-Atrop 2.5-0.025 mg [Lomotil] 1 each PO Q6HR PRN tab 03/07/19 [Rx] Metoprolol Tartrate [Lopressor] 25 mg PO BID #0 tab 03/07/19 [Rx] Follow up Appointment(s)/Referral(s): Rashawn Parada MD [STAFF PHYSICIAN] - 2 Weeks Tiera Kuhn MD [Primary Care Provider] - 1-2 days Activity/Diet/Wound Care/Special Instructions: Jerry
[2019-03-07 12:09] VITALS: BP 132/60; PULSE 68; RESP 16
--- NOTE | 2019-03-07 12:57 | P.PN ---
Subjective Progress Note Date: 03/07/19 This is a pleasant 83-year-old female patient who was known to her service from before with an extensive past medical history consistent of coronary artery disease and prior coronary artery bypass grafting, chronic persistent atrial fibrillation not on any oral anticoagulation due to GI bleeding, hypertension, dyslipidemia, as well as multiple comorbid conditions, was admitted to the hospital with a change in mental status. The patient is a very poor historian and as a matter of fact she is confused. The history was taken from the chart as well as from the nurse taking care of the patient. The patient presented to the emergency room hallucinating. Apparently she was diagnosed with UTI recently and she was started on antibiotic as an outpatient. Since then she has been more confused and decided to come to the emergency room for further evaluation. In the ER the patient was found to be in acute renal failure. She does have a component of chronic renal failure but she has acute on chronic renal failure. We involved in the care of the patient because of cardiac arrhythmia in the term of bradycardia arrhythmia as well as sinus pause. The patient does have chronic persistent atrial fibrillation. the patient's Lanoxin had been discontinued, and the dose of beta lillie decreased to 25 mg one tablet by mouth twice a day which we will continue. Initially this morning, patient was feeling well and was quite eagerly anticipating discharge home. Later on in the morning she developed an episode of chest discomfort, which worsened with deep breathing. For this reason we will continue to monitor for another 24 hours. No Lanoxin, continue current dose of beta lillie. 03/07/2019 Patient seen and examined this morning, resting comfortably. Denies any further chest discomfort. Continues to be in atrial fibrillation with a heart rate in the 70s to 80s, hemodynamically stable. Arrangements are being made for the patient to be transferred back to [facility] today. Objective - Vital Signs Vital signs: Vital Signs Temp 98.2 F 03/07/19 08:00 Pulse 68 03/07/19 11:15 Resp 16 03/07/19 11:15 BP 132/60 03/07/19 11:15 Pulse Ox 96 03/07/19 11:15 Intake & Output 03/06/19 03/07/19 03/07/19 18:59 06:59 18:59 Intake Total 660 340 0 Output Total 120 Balance 540 340 0 Weight 81.2 kg Intake: Intake, IV Titration 310 340 Amount Magnesium Sulfate-D5w Pmx 200 100 1 gm In Dextrose/Water 1 100ml.bag @ 100 mls/hr IVPB Q1H [facility] Rx#: [id number] Sodium Chloride 0.9% 1, 60 240 000 ml @ 20 mls/hr IV . Q24H [facility] Rx#:[id number] cefTRIAXone 1 gm In 50 Sodium Chloride 0.9% 50 ml @ 100 mls/hr IVPB Q24HR [facility] Rx#:[id number] Oral 350 0 Output: Urine 120 Other: Voiding Method Toilet Toilet # Voids 2 2 # Bowel Movements 2 - Exam PHYSICAL EXAMINATION: GENERAL:83-year-old female in no acute distress at the time of my examination HEENT: Head is atraumatic, normocephalic. Pupils equal, round. Sclera anic teric. Conjunctiva are clear. Mucous membranes of the mouth are moist. Neck is supple. There is no elevated jugular venous pressure.No carotid bruit is heard. HEART EXAMINATION: [Heart S1, S2 irregularly irregular systolic murmur heard.] CHEST EXAMINATION:[ Lungs are clear to auscultation and precussion. No chest wall tenderness is noted on palpation or with deep breathing.] ABDOMEN: [ Soft, nontender. Bowel sounds are heard. No organomegaly noted]. EXTREMITIES:[ 2+ peripheral pulses with no evidence of peripheral edema and no calf tenderness noted]. NEUROLOGIC [patient is awake, alert and oriented X3.] . - Labs CBC & Chem 7: 03/07/19 05:48 03/07/19 05:48 Labs: Abnormal Lab Results - Last 24 Hours (Table) 03/07/19 03/07/19 Range/Units 05:48 05:48 RBC 3.59 L (3.80-5.40) m/uL MCV 104.1 H (80.0-100.0) fL MCHC 30.7 L (31.0-37.0) g/dL RDW 16.2 H (11.5-15.5) % Chloride 92 L (98-107) mmol/L Carbon Dioxide 34 H (22-30) mmol/L BUN 33 H (7-17) mg/dL Creatinine 1.91 H (0.52-1.04) mg/dL Glucose 100 H (74-99) mg/dL Magnesium 2.4 H (1.6-2.3) mg/dL Assessment and Plan Plan: Assessment and plan #1 change in mental status #2 acute on chronic renal failure #3 bradycardia arrhythmia #4 sinus pause episode of 3.8 seconds #5 chronic persistent atrial fibrillation #6 severe mitral regurgitation #7 coronary artery disease Plan we will continue the beta lillie at 25 mg one tablet by mouth twice a day, Lanoxin has been discontinued and we will continue to hold this medication. Patient may be transferred back to extended care facility today, follow-up appointment with Dr. Parada in the office. DNP note has been reviewed, I agree with a documented findings and plan of care. Patient was seen and examined.
== END 2019-03-07 15:25 | DRG 689 ==
LOC: EC 12:17 → 3SCARD 15:35 → OBSVTOIN 03-04 11:32
PROVIDERS: ADMIT Internal Medicine; ATTEND Internal Medicine
DX: N39.0 Urinary tract infection, site not specified (principal); G93.41 Metabolic encephalopathy; N17.9 Acute kidney failure, unspecified; I50.32 Chronic diastolic (congestive) heart failure; I13.0 Hypertensive heart and chronic kidney disease with heart failure and stage 1 through stage 4 chronic kidney disease, or unspecified chronic kidney disease; I42.9 Cardiomyopathy, unspecified; I48.19 Other persistent atrial fibrillation; B96.20 Unspecified Escherichia coli [E. coli] as the cause of diseases classified elsewhere; R19.7 Diarrhea, unspecified; N18.3 Chronic kidney disease, stage 3 (moderate); I34.0 Nonrheumatic mitral (valve) insufficiency; I25.10 Atherosclerotic heart disease of native coronary artery without angina pectoris; J44.9 Chronic obstructive pulmonary disease, unspecified; K21.9 Gastro-esophageal reflux disease without esophagitis; E78.5 Hyperlipidemia, unspecified; M19.90 Unspecified osteoarthritis, unspecified site; F41.9 Anxiety disorder, unspecified; F32.9 Major depressive disorder, single episode, unspecified; E03.9 Hypothyroidism, unspecified; Z60.2 Problems related to living alone; M10.9 Gout, unspecified; G62.9 Polyneuropathy, unspecified; R00.1 Bradycardia, unspecified; M54.42 Lumbago with sciatica, left side; T36.95XA Adverse effect of unspecified systemic antibiotic, initial encounter; Y92.019 Unspecified place in single-family (private) house as the place of occurrence of the external cause; M54.41 Lumbago with sciatica, right side; E83.42 Hypomagnesemia; T50.2X5A Adverse effect of carbonic-anhydrase inhibitors, benzothiadiazides and other diuretics, initial encounter; Y92.239 Unspecified place in hospital as the place of occurrence of the external cause; E87.6 Hypokalemia; I25.2 Old myocardial infarction; Z87.01 Personal history of pneumonia (recurrent); Z79.890 Hormone replacement therapy; Z95.1 Presence of aortocoronary bypass graft; Z95.5 Presence of coronary angioplasty implant and graft; Z86.010 Personal history of colon polyps; Z99.81 Dependence on supplemental oxygen; Z87.891 Personal history of nicotine dependence; Z79.82 Long term (current) use of aspirin; Z79.899 Other long term (current) drug therapy; Z88.8 Allergy status to other drugs, medicaments and biological substances; Z91.81 History of falling; Z90.710 Acquired absence of both cervix and uterus; Z98.42 Cataract extraction status, left eye; Z98.41 Cataract extraction status, right eye
CPT/HCPCS: 36415; 70450; 71046; 80053; 80162; 81001; 83735; 84132; 84439; 84443; 84484; 84550; 85025; 85610; 85730; 87077; 87086; 87186; 87324; 93005; 94760; 96360; 96361; 99285

== ENCOUNTER 2020-10-28 15:50 | Inpatient (IN) | payer MEDICARE, BC ==
--- NOTE | 2020-10-28 16:22 | ED ---
General Adult HPI - General Chief complaint: Weakness Stated complaint: weakness Time Seen by Provider: 10/28/20 15:58 Source: patient, EMS, RN notes reviewed, old records reviewed Mode of arrival: EMS Limitations: no limitations - History of Present Illness Initial comments: 85 yo female presenting for increased generalized weakness, dyspnea. Dyspnea is exertional. The symptoms have been present for several months. She currently lives with her son. She denies any pain complaints including no chest pain or abdominal pain. No fever. She denies significant cough. Denies vomiting or diarrhea. Denies dysuria or hematuria. She states she has had a poor appetite as well. - Related Data Home Medications Medication Instructions Recorded Confirmed Escitalopram [Lexapro] 10 mg PO DAILY 07/20/18 03/02/19 allopurinoL [Zyloprim] 300 mg PO DAILY 07/20/18 03/02/19 Isosorbide Mononitrate [Isosorbide 30 mg PO DAILY 10/22/18 03/02/19 Mononitrate ER] metOLazone [Zaroxolyn] 2.5 mg PO MOWEFR 10/22/18 03/02/19 Calm Support Supplement 1 cap PO HS 10/28/20 10/28/20 Calm Support Supplement 2 cap PO DAILY@1600 10/28/20 10/28/20 Furosemide [Lasix] 40 mg PO DAILY@1400 10/28/20 10/28/20 Furosemide [Lasix] 60 mg PO DAILY@0800 10/28/20 10/28/20 Gabapentin [Neurontin] 300 mg PO HS 10/28/20 10/28/20 Potassium Chloride ER [K-Dur 20] 20 meq PO BID 10/28/20 10/28/20 Previous Rx's Medication Instructions Recorded Montelukast [Singulair] 10 mg PO HS #30 tab 09/18/18 Metoprolol Tartrate [Lopressor] 25 mg PO BID #0 tab 03/07/19 Allergies Allergy/AdvReac Type Severity Reaction Status Date / Time [id number] Reductase AdvReac Unknown Verified 10/28/20 17:30 Inhibitor Review of Systems ROS Statement: Those systems with pertinent positive or pertinent negative responses have been documented in the HPI. ROS Other: All systems not noted in ROS Statement are negative. Past Medical History Past Medical History: Atrial Fibrillation, Coronary Artery Disease (CAD), Chest Pain / Angina, Heart Failure, COPD, GERD/Reflux, Hyperlipidemia, Myocardial Infarction ([place]), Osteoarthritis (OA), Pneumonia, Renal Disease Additional Past Medical History / Comment(s): Pt recently admitted to [facility] on 11/24/18 with dyspnea r/t CHF/cardiomyopathy and acute on chronic kidney disease. Other hx: Chronic Afib, neuropathy bilateral feet, gout bilateral feet, falls, occasional low back pain with bilateral sciatica with L side worse, hypothyroid, epistaxis with blood loss anemia, recent memory impairment Last Myocardial Infarction Date:: 2012 History of Any Multi-Drug Resistant Organisms: None Reported Past Surgical History: Appendectomy, Back Surgery, Cardiac Ablation, Cholecystectomy, Coronary Bypass/CABG, Heart Catheterization With Stent, Hysterectomy Additional Past Surgical History / Comment(s): LOW, 1993 CABG-4 vessels, nasal cauterization, colonoscopy with benign polypectomy, D&C, bilateral cataract removals, R breast benign bx, lumbar laminectomy. Past Anesthesia/Blood Transfusion Reactions: Previous Problems w/ Anesthesia Additional Past Anesthesia/Blood Transfusion Reaction / Comment(s): Pt received blood 02/07/12 without reaction after epistaxis. Date of Last Stent Placement:: 03/2013 Past Psychological History: Anxiety, Depression Smoking Status: Former smoker Past Alcohol Use History: Occasional Past Drug Use History: None Reported - Past Family History Mother Additional Family Medical History / Comment(s): Mother was a heavy drinker. She lived to be in her 80's Father Family Medical History: No Reported History Additional Family Medical History / Comment(s): Father lived to be in his 80's General Exam Limitations: no limitations General appearance: alert, in no apparent distress Head exam: Present: atraumatic, normocephalic Eye exam: Present: normal appearance, PERRL ENT exam: Present: mucous membranes dry Neck exam: Present: normal inspection. Absent: tenderness Respiratory exam: Present: decreased breath sounds. Absent: respiratory distress, wheezes Cardiovascular Exam: Present: tachycardia, irregular rhythm GI/Abdominal exam: Present: soft. Absent: distended, tenderness, guarding Extremities exam: Present: normal inspection, normal capillary refill. Absent: pedal edema Neurological exam: Present: alert, oriented X3, CN II-XII intact. Absent: motor sensory deficit Psychiatric exam: Present: normal affect, normal mood Skin exam: Present: warm, dry, intact. Absent: cyanosis, diaphoretic Course Vital Signs 10/28/20 15:52 Temperature 97.6 F Pulse Rate 117 H Respiratory 20 Rate Blood Pressure 100/71 O2 Sat by Pulse 86 L Oximetry EKG Findings - EKG Comments: EKG Findings:: H fibrillation with RVR, right axis, rate of 104, QRS duration 110, QTC 462, no ST segment elevation, there is some ST segment depression in V2 V3 V4 and V5. Medical Decision Making - Medical Decision Making 85-year-old female with dyspnea generalized weakness history of CHF. Chest x- ray showing pulmonary edema. Patient does have a minimally elevated troponin which is baseline for this patient. She has history of chronic kidney disease. She does have an anemia today at 7.4 may be related to chronic kidney disease. Patient given IV diuretics in the emergency department. She will be admitted for diuresis. Case discussed with Dr. Virk who will admit. - Lab Data Result diagrams: 10/28/20 16:13 10/28/20 16:13 Lab Results 10/28/20 10/28/20 10/28/20 Range/Units 16:13 16:13 16:13 WBC 9.0 (3.8-10.6) k/uL RBC 2.55 L (3.80-5.40) m/uL Hgb 7.4 L (11.4-16.0) gm/dL Hct 23.6 L (34.0-46.0) % MCV 92.6 (80.0-100.0) fL MCH 29.2 (25.0-35.0) pg MCHC 31.5 (31.0-37.0) g/dL RDW 18.8 H (11.5-15.5) % Plt Count 290 (150-450) k/uL MPV 7.1 Neutrophils % 75 % Lymphocytes % 15 % Monocytes % 5 % Eosinophils % 4 % Basophils % 0 % Neutrophils # 6.7 (1.3-7.7) k/uL Lymphocytes # 1.4 (1.0-4.8) k/uL Monocytes # 0.4 (0-1.0) k/uL Eosinophils # 0.3 (0-0.7) k/uL Basophils # 0.0 (0-0.2) k/uL Hypochromasia Marked Anisocytosis Slight PT 10.2 (9.0-12.0) sec INR 0.9 (<1.2) APTT 20.6 L (22.0-30.0) sec Sodium (137-145) mmol/L Potassium (3.5-5.1) mmol/L Chloride (98-107) mmol/L Carbon Dioxide (22-30) mmol/L Anion Gap mmol/L BUN (7-17) mg/dL Creatinine (0.52-1.04) mg/dL Est GFR (CKD-EPI)AfAm (>60 ml/min/1.73 sqM) Est GFR (CKD-EPI)NonAf (>60 ml/min/1.73 sqM) Glucose (74-99) mg/dL Plasma Lactic Acid Prem (0.7-2.0) mmol/L Calcium (8.4-10.2) mg/dL Magnesium (1.6-2.3) mg/dL Total Bilirubin (0.2-1.3) mg/dL AST (14-36) U/L ALT (4-34) U/L Alkaline Phosphatase (38-126) U/L Troponin I (0.000-0.034) ng/mL Total Protein (6.3-8.2) g/dL Albumin (3.5-5.0) g/dL Urine Color Light Yellow Urine Appearance Clear (Clear) Urine pH 5.5 (5.0-8.0) Ur Specific [place] 1.007 (1.001-1.035) Urine Protein Negative (Negative) Urine Glucose (UA) Negative (Negative) Urine Ketones Negative (Negative) Urine Blood Negative (Negative) Urine Nitrite Negative (Negative) Urine Bilirubin Negative (Negative) Urine Urobilinogen <2.0 (<2.0) mg/dL Ur Leukocyte Esterase Negative (Negative) 10/28/20 10/28/20 10/28/20 Range/Units 16:13 16:13 16:13 WBC (3.8-10.6) k/uL RBC (3.80-5.40) m/uL Hgb (11.4-16.0) gm/dL Hct (34.0-46.0) % MCV (80.0-100.0) fL MCH (25.0-35.0) pg MCHC (31.0-37.0) g/dL RDW (11.5-15.5) % Plt Count (150-450) k/uL MPV Neutrophils % % Lymphocytes % % Monocytes % % Eosinophils % % Basophils % % Neutrophils # (1.3-7.7) k/uL Lymphocytes # (1.0-4.8) k/uL Monocytes # (0-1.0) k/uL Eosinophils # (0-0.7) k/uL Basophils # (0-0.2) k/uL Hypochromasia Anisocytosis PT (9.0-12.0) sec INR (<1.2) APTT (22.0-30.0) sec Sodium 136 L (137-145) mmol/L Potassium 4.2 (3.5-5.1) mmol/L Chloride 95 L (98-107) mmol/L Carbon Dioxide 34 H (22-30) mmol/L Anion Gap 7 mmol/L BUN 57 H (7-17) mg/dL Creatinine 1.67 H (0.52-1.04) mg/dL Est GFR (CKD-EPI)AfAm 32 (>60 ml/min/1.73 sqM) Est GFR (CKD-EPI)NonAf 28 (>60 ml/min/1.73 sqM) Glucose 95 (74-99) mg/dL Plasma Lactic Acid Prem 0.9 (0.7-2.0) mmol/L Calcium 9.0 (8.4-10.2) mg/dL Magnesium 2.9 H (1.6-2.3) mg/dL Total Bilirubin 0.2 (0.2-1.3) mg/dL AST 21 (14-36) U/L ALT 8 (4-34) U/L Alkaline Phosphatase 118 (38-126) U/L Troponin I 0.071 H* (0.000-0.034) ng/mL Total Protein 5.9 L (6.3-8.2) g/dL Albumin 3.4 L (3.5-5.0) g/dL Urine Color Urine Appearance (Clear) Urine pH (5.0-8.0) Ur Specific [place] (1.001-1.035) Urine Protein (Negative) Urine Glucose (UA) (Negative) Urine Ketones (Negative) Urine Blood (Negative) Urine Nitrite (Negative) Urine Bilirubin (Negative) Urine Urobilinogen (<2.0) mg/dL Ur Leukocyte Esterase (Negative) Disposition Clinical Impression: Congestive heart failure, Chronic a-fib, Dyspnea Disposition: ADMITTED IP TO THIS HOSP Condition: Stable Is patient prescribed a controlled substance at d/c from ED?: No Referrals: Tiera Kuhn MD [Primary Care Provider] - 1-2 days Decision to Admit Reason: Admit from EC Decision Date: 10/28/20 Decision Time: 18:08
[2020-10-28 16:23] LABS: Anisocytosis Slight; Basophils % (A) 0 %; Eosinophils # (A) 0.3 k/uL (0-0.7); Eosinophils % (A) 4 %; HCT 23.6 % (34.0-46.0); HGB 7.4 gm/dL (11.4-16.0); Hypochromasia Marked; Lymphocytes # (A) 1.4 k/uL (1.0-4.8); Lymphocytes % (A) 15 %; MCH 29.2 pg (25.0-35.0); MCHC 31.5 g/dL (31.0-37.0); MCV 92.6 fL (80.0-100.0); Mean Platelet Volume 7.1; Monocytes # (A) 0.4 k/uL (0-1.0); Monocytes % (A) 5 %; Neutrophils # (A) 6.7 k/uL (1.3-7.7); Neutrophils % (A) 75 %; Platelet Count 290 k/uL (150-450); RBC 2.55 m/uL (3.80-5.40); RDW 18.8 % (11.5-15.5)
[2020-10-28 16:33] LABS: Albumin 3.4 g/dL (3.5-5.0); Magnesium 2.9 mg/dL (1.6-2.3); Potassium 4.2 mmol/L (3.5-5.1); Total Bilirubin 0.2 mg/dL (0.2-1.3); Total Protein 5.9 g/dL (6.3-8.2)
--- NOTE | 2020-10-28 16:45 | XR ---
EXAMINATION TYPE: XR chest 2V DATE OF EXAM: 10/28/2020 COMPARISON: 03/02/2019 HISTORY: Weakness. Short of breath TECHNIQUE: 2 views FINDINGS: Heart is enlarged. There is elevated right diaphragm noted is blunting of the right costoph renic angle. There is pulmonary vascular congestion. There are sternal wires. IMPRESSION: Mild congestive heart failure. Right pleural effusion and right basilar atelectasis incre ased compared to last exam
[2020-10-28 16:53] LABS: INR 0.9 (<1.2); Partial Thromboplastin Time 20.6 sec (22.0-30.0); Prothrombin Time 10.2 sec (9.0-12.0)
[2020-10-28] MEDS ORDERED: FUROSEMIDE 10 MG/ML 4 ML VIAL IV STA (17:01)
[2020-10-28 17:30] LABS: Appearance,Urine Clear (Clear); Bilirubin,Urine Negative (Negative); Blood,Urine Negative (Negative); Color,Urine Light Yellow; Glucose,Urine (UA) Negative (Negative); Ketones,Urine Negative (Negative); Leukocyte Esterase,Urine Negative (Negative); Nitrite,Urine Negative (Negative); PH, Urine 5.5 (5.0-8.0); Protein,Urine Negative (Negative); Specific Gravity,Urine 1.007 (1.001-1.035); Urobilinogen,Urine <2.0 mg/dL (<2.0)
[2020-10-28] MEDS ORDERED: ACETAMINOPHEN TAB 325 MG TAB PO PRN (18:04)
[2020-10-28] MEDS ORDERED: NALOXONE 0.4 MG/ML 1 ML VIAL IV PRN (18:04)
--- NOTE | 2020-10-28 18:24 | P.HPIM ---
History of Present Illness H&P Date: 10/28/20 Gisela Harman is an 85-year-old female who presented to [facility] with a chief complaint of worsening shortness of breath and generalized weakness. Patient stated that her symptoms started month ago however she was feeling much worse in the last few days. Otherwise she denies any complaints there is no fever or chills no headache or dizziness no chest pain no cough no nausea or vomiting no abdominal pain no diarrhea no blood in the stools no burning with urination no frequency or urgency and no hematuria. There is no weakness or numbness in any of the extremities no change in her vision speech or gait. Patient has a known history of persistent atrial fibrillation, history of hypertension, history of hyperlipidemia, history of hypothyroidism, history of gout, history of chronic diastolic congestive heart failure, history of chronic kidney disease stage III with history of cardiorenal syndrome, and history of chronic anemia. Her last admission to the hospital was in February 2019. She was evaluated in the emergency room vital examination on presentation revealed a temperature of 97.6 heart rate 117 respiration 20 blood pressure 100/71 pulse ox 86% on room air, laboratory data revealed a white blood count of 9.0 hemoglobin 7.4 platelet count 290 sodium 136 BUN 57 and creatinine 1.67 troponin level was 0.071 chest x-ray revealed evidence of mild congestive heart failure and right pleural effusion and right basilar atelectasis , patient was admitted to telemetry floor cardiology consultation and pulmonary consultation were requested. Patient is very hard of hearing, history and review of symptoms mostly provided by her son who was at the bedside at the time of my exam, Past Medical History Past Medical History: Atrial Fibrillation, Coronary Artery Disease (CAD), Chest Pain / Angina, Heart Failure, COPD, GERD/Reflux, Hyperlipidemia, Myocardial Infarction ([place]), Osteoarthritis (OA), Pneumonia, Renal Disease Additional Past Medical History / Comment(s): Pt recently admitted to [facility] on 0 11/24/18 with dyspnea r/t CHF/cardiomyopathy and acute on chronic kidney disease. Other hx: Chronic Afib, neuropathy bilateral feet, gout bilateral feet, falls, occasional low back pain with bilateral sciatica with L side worse, hypothyroid, epistaxis with blood loss anemia, recent memory impairment Last Myocardial Infarction Date:: 2012 History of Any Multi-Drug Resistant Organisms: None Reported Past Surgical History: Appendectomy, Back Surgery, Cardiac Ablation, Cholecystectomy, Coronary Bypass/CABG, Heart Catheterization With Stent, Hysterectomy Additional Past Surgical History / Comment(s): LOW, 1993 CABG-4 vessels, nasal cauterization, colonoscopy with benign polypectomy, D&C, bilateral cataract removals, R breast benign bx, lumbar laminectomy. Past Anesthesia/Blood Transfusion Reactions: Previous Problems w/ Anesthesia Additional Past Anesthesia/Blood Transfusion Reaction / Comment(s): Pt received blood 02/07/12 without reaction after epistaxis. Date of Last Stent Placement:: 03/2013 Past Psychological History: Anxiety, Depression Smoking Status: Former smoker Past Alcohol Use History: Occasional Past Drug Use History: None Reported - Past Family History Mother Additional Family Medical History / Comment(s): Mother was a heavy drinker. She lived to be in her 80's Father Family Medical History: No Reported History Additional Family Medical History / Comment(s): Father lived to be in his 80's Medications and Allergies Home Medications Medication Instructions Recorded Confirmed Type Escitalopram [Lexapro] 10 mg PO DAILY 07/20/18 10/28/20 History allopurinoL [Zyloprim] 300 mg PO DAILY 07/20/18 10/28/20 History Montelukast [Singulair] 10 mg PO HS #30 tab 09/18/18 10/28/20 Rx Isosorbide Mononitrate [Isosorbide 30 mg PO DAILY 10/22/18 10/28/20 History Mononitrate ER] metOLazone [Zaroxolyn] 2.5 mg PO FR 10/22/18 10/28/20 History Metoprolol Tartrate [Lopressor] 25 mg PO BID #0 tab 03/07/19 10/28/20 Rx Calm Support Supplement 1 cap PO HS 10/28/20 10/28/20 History Calm Support Supplement 2 cap PO DAILY@1600 10/28/20 10/28/20 History Furosemide [Lasix] 40 mg PO DAILY@1400 10/28/20 10/28/20 History Furosemide [Lasix] 60 mg PO DAILY@0800 10/28/20 10/28/20 History Gabapentin [Neurontin] 300 mg PO HS 10/28/20 10/28/20 History Potassium Chloride ER [K-Dur 20] 20 meq PO BID 10/28/20 10/28/20 History Allergies Allergy/AdvReac Type Severity Reaction Status Date / Time [id number]-[id number] Reductase AdvReac Unknown Verified 10/28/20 17:30 Inhibitor Physical Exam Vitals: Vital Signs Temp Pulse Resp BP Pulse Ox 10/28/20 15:52 97.6 F 117 H 20 100/71 86 L Intake and Output 10/28/20 10/28/20 10/28/20 06:59 14:59 22:59 Other: Weight 77.564 kg In general patient is alert and oriented x 3 in no distress HEENT head normocephalic and atraumatic Neck is supple no JVD no goiter no lymphadenopathy no carotid bruit Chest examination is clear to auscultation no crackles no wheezing Cardiac exam reveals regular heart sounds S1 and S2 no gallops no murmurs Abdomen is soft nontender no organomegaly with normal bowel sounds Extremity exam reveals no edema no cyanosis or clubbing Neurological examination reveals no gross focal deficits Results CBC & Chem 7: 10/28/20 16:13 10/28/20 16:13 Labs: Abnormal Lab Results - Last 24 Hours (Table) 10/28/20 10/28/20 10/28/20 Range/Units 16:13 16:13 16:13 RBC 2.55 L (3.80-5.40) m/uL Hgb 7.4 L (11.4-16.0) gm/dL Hct 23.6 L (34.0-46.0) % RDW 18.8 H (11.5-15.5) % APTT 20.6 L (22.0-30.0) sec Sodium 136 L (137-145) mmol/L Chloride 95 L (98-107) mmol/L Carbon Dioxide 34 H (22-30) mmol/L BUN 57 H (7-17) mg/dL Creatinine 1.67 H (0.52-1.04) mg/dL Magnesium 2.9 H (1.6-2.3) mg/dL Troponin I (0.000-0.034) ng/mL Total Protein 5.9 L (6.3-8.2) g/dL Albumin 3.4 L (3.5-5.0) g/dL 10/28/20 Range/Units 16:13 RBC (3.80-5.40) m/uL Hgb (11.4-16.0) gm/dL Hct (34.0-46.0) % RDW (11.5-15.5) % APTT (22.0-30.0) sec Sodium (137-145) mmol/L Chloride (98-107) mmol/L Carbon Dioxide (22-30) mmol/L BUN (7-17) mg/dL Creatinine (0.52-1.04) mg/dL Magnesium (1.6-2.3) mg/dL Troponin I 0.071 H* (0.000-0.034) ng/mL Total Protein (6.3-8.2) g/dL Albumin (3.5-5.0) g/dL Assessment and Plan Plan: Acute on chronic diastolic congestive heart failure Right pleural effusion and right basilar atelectasis Elevated troponin level, will check serial EKGs and cardiac enzymes Significant anemia was hemoglobin down to 7.4 Underlying history of chronic persistent atrial fibrillation heart rate on presentation mildly elevated at 117 Underlying history of hypertension Underlying history of hypothyroidism Underlying history of hyperlipidemia Underlying history of gout Underlying history of chronic kidney disease Underlying history of depression with anxiety disorder At this time patient is admitted to telemetry floor, she was started on IV Lasix Serial EKGs and cardiac enzymes ordered Cardiology consultation was requested Also pulmonary consultation was requested in regard to pleural effusion Will recheck labs and chest x-ray in a.m. Prognosis is guarded to due to age and multiple comorbidities.
[2020-10-28] MEDS: METOPROLOL TARTRATE 25 MG TAB PO SCH (23:58)
[2020-10-29] MEDS ORDERED: FUROSEMIDE 20 MG TAB PO SCH ×2 (08:00→14:00)
[2020-10-29] MEDS: ESCITALOPRAM 10 MG TAB PO SCH (08:24)
[2020-10-29] MEDS: METOPROLOL TARTRATE 25 MG TAB PO SCH ×2 (08:24→20:12)
[2020-10-29] MEDS: POTASSIUM CHLORIDE ER 20 MEQ TAB.ER PO SCH ×2 (08:24→20:12)
[2020-10-29] MEDS: FUROSEMIDE 10 MG/ML 4 ML VIAL IV SCH ×2 (08:24→20:12)
[2020-10-29] MEDS: ISOSORBIDE MONONITRATE ER 30 MG TAB.ER.24H PO SCH (08:24)
[2020-10-29] MEDS: allopurinoL 300 MG TAB PO SCH (08:24)
[2020-10-29] MEDS ORDERED: METOPROLOL TARTRATE 25 MG TAB PO SCH (09:00)
[2020-10-29 09:27] LABS: Anisocytosis Slight; Basophils # (A) 0.1 k/uL (0-0.2); Basophils % (A) 1 %; Eosinophils # (A) 0.3 k/uL (0-0.7); Eosinophils % (A) 4 %; HCT 23.5 % (34.0-46.0); Hypochromasia Marked; Lymphocytes % (A) 13 %; MCH 27.4 pg (25.0-35.0); MCHC 29.3 g/dL (31.0-37.0); MCV 93.4 fL (80.0-100.0); Mean Platelet Volume 7.2; Monocytes # (A) 0.4 k/uL (0-1.0); Monocytes % (A) 5 %; Neutrophils # (A) 5.9 k/uL (1.3-7.7); Neutrophils % (A) 77 %; Platelet Count 288 k/uL (150-450); RBC 2.52 m/uL (3.80-5.40); RDW 18.7 % (11.5-15.5); WBC 7.7 k/uL (3.8-10.6)
[2020-10-29 09:29] LABS: HGB 6.9 gm/dL (11.4-16.0)
[2020-10-29 09:33] LABS: Reticulocyte % 3.8 % (0.5-2.0)
[2020-10-29 09:51] LABS: Albumin 3.2 g/dL (3.5-5.0); Calcium 8.9 mg/dL (8.4-10.2); Potassium 3.8 mmol/L (3.5-5.1); Total Bilirubin 0.3 mg/dL (0.2-1.3); Total Protein 5.5 g/dL (6.3-8.2)
[2020-10-29] MEDS ORDERED: bisacodyL 5 MG TABLET.DR PO STA (10:25)
--- NOTE | 2020-10-29 11:37 | P.CNPUL ---
History of Present Illness Consult date: 10/29/20 Requesting physician: Susan Virk Reason for consult: dyspnea, hypoxemia, abnormal CXR/CT Chief complaint: Congestive heart failure. History of present illness: Pulmonary consult dated 10/29/2020. 85-year-old female that we were asked to see because of shortness of breath. The patient was evaluated in the emergency room on October 28. The patient apparently came in with generalized weakness and shortness of breath. She states that her son wanted her to come into the emergency room. She was laying around the house too much. There is no chest pain or chest discomfort. No abdominal pain. No fever or chills. The patient denied any vomiting or diarrhea. There are no genitourinary complaints. The patient is not practically good historian. The patient does have a history of chronic atrial fibrillation, CAD, angina, heart failure, GERD, COPD, hyperlipidemia, myocardial infarction, DJD, and acute on chronic kidney disease. White count of 7.7, hemoglobin 6.9, hematocrit 23.5, platelet count 288,000. Sodium potassium chloride normal. CO2 35. BUN and creatinine were 57 and 1.72 respectively. Troponins were 0.079 and 0.076. Chest x-ray was consistent with CHF, and a right-sided pleural effusion. Review of Systems REVIEW OF SYSTEMS: CONSTITUTIONAL: Weakness. NEUROLOGIC: [ Negative.] HEENT: [ Negative.] CARDIAC: [Negative.] PULMONARY: Shortness of breath. GI: [Negative.] : [Negative.] RHEUMATOLOGIC: [ Negative.] IMMUNOLOGIC: [ Negative.] ENDOCRINE: [Negative. ] DERMATOLOGIC: [Negative.] Past Medical History Past Medical History: Atrial Fibrillation, Coronary Artery Disease (CAD), Chest Pain / Angina, Heart Failure, COPD, GERD/Reflux, Hyperlipidemia, Myocardial Infarction ([place]), Osteoarthritis (OA), Pneumonia, Renal Disease Additional Past Medical History / Comment(s): Pt recently admitted to [facility] on 11/24/18 with dyspnea r/t CHF/cardiomyopathy and acute on chronic kidney disease. Other hx: Chronic Afib, neuropathy bilateral feet, gout bilateral feet, falls, occasional low back pain with bilateral sciatica with L side worse, hypothyroid, epistaxis with blood loss anemia, recent memory impairment Last Myocardial Infarction Date:: 2012 History of Any Multi-Drug Resistant Organisms: None Reported Past Surgical History: Appendectomy, Back Surgery, Cardiac Ablation, Cholecystectomy, Coronary Bypass/CABG, Heart Catheterization With Stent, Hysterectomy Additional Past Surgical History / Comment(s): LOW, 1993 CABG-4 vessels, nasal cauterization, colonoscopy with benign polypectomy, D&C, bilateral cataract removals, R breast benign bx, lumbar laminectomy. Past Anesthesia/Blood Transfusion Reactions: Previous Problems w/ Anesthesia Additional Past Anesthesia/Blood Transfusion Reaction / Comment(s): Pt received blood 02/07/12 without reaction after epistaxis. Date of Last Stent Placement:: 03/2013 Past Psychological History: Anxiety, Depression Additional Psychological History / Comment(s): Pt resides alone. She uses a wa lker to ambulate. She drives. She has home oxygen and a nebulizer. Smoking Status: Former smoker Past Alcohol Use History: Occasional Additional Past Alcohol Use History / Comment(s): Pt has a glass of wine each evening. She started smoking in 1956 and quit in 1986. Past Drug Use History: None Reported - Past Family History Mother Additional Family Medical History / Comment(s): Mother was a heavy drinker. She lived to be in her 80's Father Family Medical History: No Reported History Additional Family Medical History / Comment(s): Father lived to be in his 80's Medications and Allergies Home Medications Medication Instructions Recorded Confirmed Type Escitalopram [Lexapro] 10 mg PO DAILY 07/20/18 10/28/20 History allopurinoL [Zyloprim] 300 mg PO DAILY 07/20/18 10/28/20 History Montelukast [Singulair] 10 mg PO HS #30 tab 09/18/18 10/28/20 Rx Isosorbide Mononitrate [Isosorbide 30 mg PO DAILY 10/22/18 10/28/20 History Mononitrate ER] metOLazone [Zaroxolyn] 2.5 mg PO FR 10/22/18 10/28/20 History Metoprolol Tartrate [Lopressor] 25 mg PO BID #0 tab 03/07/19 10/28/20 Rx Calm Support Supplement 1 cap PO HS 10/28/20 10/28/20 History Calm Support Supplement 2 cap PO DAILY@1600 10/28/20 10/28/20 History Furosemide [Lasix] 40 mg PO DAILY@1400 10/28/20 10/28/20 History Furosemide [Lasix] 60 mg PO DAILY@0800 10/28/20 10/28/20 History Gabapentin [Neurontin] 300 mg PO HS 10/28/20 10/28/20 History Potassium Chloride ER [K-Dur 20] 20 meq PO BID 10/28/20 10/28/20 History Allergies Allergy/AdvReac Type Severity Reaction Status Date / Time Puttwmi-Epo-[id number] Reductase AdvReac Unknown Verified 10/28/20 17:30 Inhibitor Physical Exam Osteopathic Statement: *. No significant issues noted on an osteopathic structural exam other than those noted in the History and Physical/Consult. Vitals: Vital Signs Temp Pulse Pulse Resp BP BP Pulse Ox 10/29/20 08:00 97.8 F 107 H 18 98/50 98 10/29/20 04:00 97.5 F L 98 18 105/59 99 10/29/20 00:00 97.4 F L 113 H 20 110/69 98 10/28/20 20:10 98.0 F 101 H 18 113/63 100 10/28/20 19:44 97.2 F L 118 H 22 117/69 99 10/28/20 18:42 99 18 96/74 99 10/28/20 18:06 78 18 102/52 98 10/28/20 15:54 98 10/28/20 15:52 97.6 F 117 H 20 100/71 86 L Intake and Output 10/28/20 10/29/20 10/29/20 22:59 06:59 14:59 Output Total 200 Balance -200 Output: Urine 200 Other: Voiding Method Bedside Commode Bedside Commode # Voids 3 # Bowel Movements 1 Weight 77.564 kg 79.1 kg No acute distress, oriented 3. Poor historian. 3 L saturation 98%. HEENT examination is grossly unremarkable. Neck supple. Full range of motion. No adenopathy thyromegaly or neck vein distention. Cardiovascular examination reveals an irregular rhythm and rate. S1-S2 normal. No S3 or S4. No discernible murmur noted. Heart rate 107 bpm. Lungs reveal bibasilar crackles. No wheezes or rhonchi. Breath sounds are equal bilaterally. Abdomen soft bowel sounds are heard. No masses or tenderness. Extremities are intact. No cyanosis clubbing or edema. Skin is without rash or lesion. Neurologic examination is brief but nonfocal. Results - Laboratory Findings CBC and BMP: 10/29/20 08:13 10/29/20 08:18 PT/INR, D-dimer PT 10.2 sec (9.0-12.0) 10/28/20 16:13 INR 0.9 (<1.2) 10/28/20 16:13 Abnormal lab findings: Abnormal Labs 10/28/20 10/28/20 10/28/20 16:13 16:13 16:13 RBC 2.55 L Hgb 7.4 L Hct 23.6 L MCHC RDW 18.8 H Retic Count APTT 20.6 L Sodium 136 L Chloride 95 L Carbon Dioxide 34 H BUN 57 H Creatinine 1.67 H Magnesium 2.9 H Troponin I Total Protein 5.9 L Albumin 3.4 L 10/28/20 10/28/20 10/28/20 16:13 19:31 22:55 RBC Hgb Hct MCHC RDW Retic Count APTT Sodium Chloride Carbon Dioxide BUN Creatinine Magnesium Troponin I 0.071 H* 0.079 H* 0.076 H* Total Protein Albumin 10/29/20 10/29/20 10/29/20 08:13 08:18 08:38 RBC 2.52 L Hgb 6.9 L* Hct 23.5 L MCHC 29.3 L RDW 18.7 H Retic Count 3.8 H APTT Sodium Chloride Carbon Dioxide 35 H BUN 57 H Creatinine 1.72 H Magnesium Troponin I Total Protein 5.5 L Albumin 3.2 L - Diagnostic Findings Chest x-ray: image reviewed Assessment and Plan Assessment: Acute congestive heart failure. Anemia. Chronic kidney disease. Chronic atrial fibrillation. History of CAD, with previous catheterization and stenting. Status post bypass grafting. History of gastroesophageal reflux disease. History of hyperlipidemia. Prior history of myocardial infarction. Questionable history of COPD, as the patient did smoke quit smoking more than 40 years ago. Plan: Plan dated 10/29/2020. The patient's increased shortness of breath relates to acute congestive heart failure. Her examination and laboratory data would support that as well as her chest x-ray. She may have some underlying COPD. She did smoke in the past but quit more than 40 years ago. No additional recommendations are made. She's not in any distress. We will continue to follow make recommendations where appropriate. Time with Patient: Greater than 30
--- NOTE | 2020-10-29 11:51 | P.PN ---
Subjective Progress Note Date: 10/29/20 Gisela Harman is an 85-year-old female who presented to [facility] with a chief complaint of worsening shortness of breath and generalized weakness. Patient stated that her symptoms started month ago however she was feeling much worse in the last few days. Otherwise she denies any complaints there is no fever or chills no headache or dizziness no chest pain no cough no nausea or vomiting no abdominal pain no diarrhea no blood in the stools no burning with urination no frequency or urgency and no hematuria. There is no weakness or numbness in any of the extremities no change in her vision speech or gait. Patient has a known history of persistent atrial fibrillation, history of hypertension, history of hyperlipidemia, history of hypothyroidism, history of gout, history of chronic diastolic congestive heart failure, history of chronic kidney disease stage III with history of cardiorenal syndrome, and history of chronic anemia. Her last admission to the hospital was in February 2019. She was evaluated in the emergency room vital examination on presentation revealed a temperature of 97.6 heart rate 117 respiration 20 blood pressure 100/71 pulse ox 86% on room air, laboratory data revealed a white blood count of 9.0 hemoglobin 7.4 platelet count 290 sodium 136 BUN 57 and creatinine 1.67 troponin level was 0.071 chest x-ray revealed evidence of mild congestive heart failure and right pleural effusion and right basilar atelectasis , patient was admitted to telemetry floor cardiology consultation and pulmonary consultation were requested. Patient is very hard of hearing, history and review of symptoms mostly provided by her son who was at the bedside at the time of my exam, On 10/29/2020 patient is alert resting comfortably in bed. Patient is extremely hard of hearing. 2-D echo is in process. Patient remains on IV Lasix. Hemoglobin 6.9 1 unit PRBCs have been ordered. GI services have been consulted for anemia. Pulmonary and cardiology services also following. At this time patient denies any chest pain. Patient denies nausea vomiting or diarrhea. P atient denies any urinary burning or frequency. Objective - Vital Signs Vital signs: Vital Signs Temp 97.8 F 10/29/20 08:00 Pulse 107 H 10/29/20 08:00 Resp 18 10/29/20 08:00 BP 98/50 10/29/20 08:00 Pulse Ox 98 10/29/20 08:00 Intake & Output 10/28/20 10/29/20 10/29/20 18:59 06:59 18:59 Output Total 200 Balance -200 Weight 77.564 kg 79.1 kg Output: Urine 200 Other: Voiding Method Bedside Commode # Voids 3 # Bowel Movements 1 - Exam In general patient is alert and oriented x 3 in no distress HEENT head normocephalic and atraumatic Neck is supple no JVD no goiter no lymphadenopathy no carotid bruit Chest examination is clear to auscultation no crackles no wheezing Cardiac exam reveals regular heart sounds S1 and S2 no gallops no murmurs Abdomen is soft nontender no organomegaly with normal bowel sounds Extremity exam reveals no edema no cyanosis or clubbing Neurological examination reveals no gross focal deficits - Labs CBC & Chem 7: 10/29/20 08:13 10/29/20 08:18 Labs: Abnormal Lab Results - Last 24 Hours (Table) 10/28/20 10/28/20 10/28/20 Range/Units 16:13 16:13 16:13 RBC 2.55 L (3.80-5.40) m/uL Hgb 7.4 L (11.4-16.0) gm/dL Hct 23.6 L (34.0-46.0) % MCHC (31.0-37.0) g/dL RDW 18.8 H (11.5-15.5) % Retic Count (0.5-2.0) % APTT 20.6 L (22.0-30.0) sec Sodium 136 L (137-145) mmol/L Chloride 95 L (98-107) mmol/L Carbon Dioxide 34 H (22-30) mmol/L BUN 57 H (7-17) mg/dL Creatinine 1.67 H (0.52-1.04) mg/dL Magnesium 2.9 H (1.6-2.3) mg/dL Troponin I (0.000-0.034) ng/mL Total Protein 5.9 L (6.3-8.2) g/dL Albumin 3.4 L (3.5-5.0) g/dL 10/28/20 10/28/20 10/28/20 Range/Units 16:13 19:31 22:55 RBC (3.80-5.40) m/uL Hgb (11.4-16.0) gm/dL Hct (34.0-46.0) % MCHC (31.0-37.0) g/dL RDW (11.5-15.5) % Retic Count (0.5-2.0) % APTT (22.0-30.0) sec Sodium (137-145) mmol/L Chloride (98-107) mmol/L Carbon Dioxide (22-30) mmol/L BUN (7-17) mg/dL Creatinine (0.52-1.04) mg/dL Magnesium (1.6-2.3) mg/dL Troponin I 0.071 H* 0.079 H* 0.076 H* (0.000-0.034) ng/mL Total Protein (6.3-8.2) g/dL Albumin (3.5-5.0) g/dL 10/29/20 10/29/20 10/29/20 Range/Units 08:13 08:18 08:38 RBC 2.52 L (3.80-5.40) m/uL Hgb 6.9 L* (11.4-16.0) gm/dL Hct 23.5 L (34.0-46.0) % MCHC 29.3 L (31.0-37.0) g/dL RDW 18.7 H (11.5-15.5) % Retic Count 3.8 H (0.5-2.0) % APTT (22.0-30.0) sec Sodium (137-145) mmol/L Chloride (98-107) mmol/L Carbon Dioxide 35 H (22-30) mmol/L BUN 57 H (7-17) mg/dL Creatinine 1.72 H (0.52-1.04) mg/dL Magnesium (1.6-2.3) mg/dL Troponin I (0.000-0.034) ng/mL Total Protein 5.5 L (6.3-8.2) g/dL Albumin 3.2 L (3.5-5.0) g/dL Assessment and Plan Plan: Acute on chronic diastolic congestive heart failure Right pleural effusion and right basilar atelectasis Elevated troponin level, will check serial EKGs and cardiac enzymes Significant anemia was hemoglobin down to 7.4 Underlying history of chronic persistent atrial fibrillation heart rate on pre sentation mildly elevated at 117 Underlying history of hypertension Underlying history of hypothyroidism Underlying history of hyperlipidemia Underlying history of gout Underlying history of chronic kidney disease Underlying history of depression with anxiety disorder Cardiology, pulmonary and GI services following 1 unit PRBCs ordered Continue IV Lasix 2-D echo ordered
--- NOTE | 2020-10-29 12:11 | ECHOF ---
Referral Reason:LV function MEASUREMENTS -------- HEIGHT: 162.6 cm WEIGHT: 78.9 kg BP: IVSd: 1.6 cm (0.6 - 1.1) LVIDd: 3.7 cm (3.9 - 5.3) LVPWd: 1.5 cm (0.6 - 1.1) IVSs: 2.0 cm LVIDs: 2.5 cm LVPWs: 1.8 cm Ao Diam: 3.7 cm (2.0 - 3.7) AV Cusp: 2.1 cm (1.5 - 2.6) LA Diam: 4.6 cm (2.7 - 3.8) MV EXCURSION: 24.642 mm (> 18.000) MV EF SLOPE: 179 mm/s (70 - 150) EPSS: 1.0 cm RAP: 5.00 mmHg RVSP: 46.16 mmHg FINDINGS -------- Atrial fibrillation. This was a technically difficult study with suboptimal views. The left ventricular size is normal. There is moderate concentric left ventricular hypertrophy. O verall left ventricular systolic function is mildly impaired with, an EF between 45 - 50 %. Basal i nferior LV wall motion is hypokinetic. Basal inferoseptal LV wall motion is hypokinetic. The right ventricle is normal in size. The left atrium is moderately dilated. The right atrial size is normal. Lumason used The aortic valve is trileaflet and appears structurally normal. The mitral valve is normal. The mitral valve leaflets are mildly thickened. [id number] mi tral regurgitation is present. The tricuspid valve appears structurally normal. Moderate tricuspid regurgitation present. There is mild pulmonary hypertension. The right ventricular systolic pressure, as measured by Doppler, is 46.16mmHg. Trace/mild (physiologic) pulmonic regurgitation. The aortic root size is normal. IVC Not well visulized. There is no pericardial effusion. CONCLUSIONS -------- 1. The left ventricular size is normal. 2. There is moderate concentric left ventricular hypertrophy. 3. Overall left ventricular systolic function is mildly impaired with, an EF between 45 - 50 %. 4. Basal inferior LV wall motion is hypokinetic. 5. Basal inferoseptal LV wall motion is hypokinetic. 6. The left atrium is moderately dilated. 7. The mitral valve leaflets are mildly thickened. 8. Iyolgrei-[id number] mitral regurgitation is present. 9. Moderate tricuspid regurgitation present. 10. There is mild pulmonary hypertension. 11. The right ventricular systolic pressure, as measured by Doppler, is 46.16mmHg. 12. Trace/mild (physiologic) pulmonic regurgitation. 13. There is no pericardial effusion. SURGICAL GARMENT INSPECTOR: Marbella Crawley RDCS
--- NOTE | 2020-10-29 13:04 | P.CONS ---
History of Present Illness - Reason for Consult Consult date: 10/29/20 Anemia Requesting physician: Susan Virk - Chief Complaint Weakness, fatigue - History of Present Illness This is a pleasant 85-year-old female who is her son called EMS to bring her to the hospital because she has been weak and tired for the last several months. She has a past medical history of atrial fibrillation, coronary artery disease, angina, heart failure, COPD, GERD, hyperlipidemia, myocardial infarction, osteoarthritis, and renal disease. She denies any anticoagulation, but states she takes Aleve frequently for pain. She states she has been having dark stools off and on for months. She denies any abdominal pain, nausea, or vomiting. States she has had some shortness of breath along with her weakness and fatigue. She believes she may have had a colonoscopy remotely, but unsure, no history of peptic ulcer disease or previous EGD. Dates otherwise normal bowel movements are every day to every other day. She denies any hematemesis workup current emesis. On admission she's had trending elevated troponins for which cardiology is on consult. Labs include WBC 9, hemoglobin 7.4, hematocrit 23.6, platelets 290,000, INR 0.9. Total bilirubin 0.2, alkaline phosphatase 118, AST 21, ALT 8. Review of Systems REVIEW OF SYSTEMS: CARDIOPULMONARY: No chest pain, port or shortness of breath. Gastrointestinal: No abdominal pain. No complaints of constipation or diarrhea. No nausea or vomiting. No hematemesis, coffee-ground emesis. No rectal bleeding. Dark black stools off and on for last several months. GENITOURINARY: No dysuria or hematuria. MUSCULOSKELETAL: Reports normal range of motion., Joint pain. SKIN: No rashes. No jaundice. ENDOCRINE: No chills, fevers. No excessive weight gain or loss. No polydipsia or polyuria. PSYCHIATRIC: Unremarkable. NEUROLOGY: No change in mental status. Denies dizziness, headache. ENT: Vision unremarkable. CONSTITUTIONAL: No recent weight loss. No fever, chills, night sweats. Fatigue, weakness. Past Medical History Past Medical History: Atrial Fibrillation, Coronary Artery Disease (CAD), Chest Pain / Angina, Heart Failure, COPD, GERD/Reflux, Hyperlipidemia, Myocardial Infarction (NC), Osteoarthritis (OA), Pneumonia, Renal Disease Additional Past Medical History / Comment(s): Pt recently admitted to [facility] on 11/24/18 with dyspnea r/t CHF/cardiomyopathy and acute on chronic kidney disease. Other hx: Chronic Afib, neuropathy bilateral feet, gout bilateral feet, falls, occasional low back pain with bilateral sciatica with L side worse, hypothyroid, epistaxis with blood loss anemia, recent memory impairment Last Myocardial Infarction Date:: 2012 History of Any Multi-Drug Resistant Organisms: None Reported Past Surgical History: Appendectomy, Back Surgery, Cardiac Ablation, Cholecystectomy, Coronary Bypass/CABG, Heart Catheterization With Stent, Hysterectomy Additional Past Surgical History / Comment(s): LOW, 1993 CABG-4 vessels, nasal cauterization, colonoscopy with benign polypectomy, D&C, bilateral cataract removals, R breast benign bx, lumbar laminectomy. Past Anesthesia/Blood Transfusion Reactions: Previous Problems w/ Anesthesia Additional Past Anesthesia/Blood Transfusion Reaction / Comm: Pt received blood 02/07/12 without reaction after epistaxis. Date of Last Stent Placement:: 03/2013 Past Psychological History: Anxiety, Depression Additional Psychological History / Comment(s): Pt resides alone. She uses a walker to ambulate. She drives. She has home oxygen and a nebulizer. Smoking Status: Former smoker Past Alcohol Use History: Occasional Additional Past Alcohol Use History / Comment(s): Pt has a glass of wine each evening. She started smoking in 6 and quit in 1986. Past Drug Use History: None Reported - Past Family History Mother Additional Family Medical History / Comment(s): Mother was a heavy drinker. She lived to be in her 80's Father Family Medical History: No Reported History Additional Family Medical History / Comment(s): Father lived to be in his 80's Medications and Allergies Home Medications Medication Instructions Recorded Confirmed Type Escitalopram [Lexapro] 10 mg PO DAILY 07/20/18 10/28/20 History allopurinoL [Zyloprim] 300 mg PO DAILY 07/20/18 10/28/20 History Montelukast [Singulair] 10 mg PO HS #30 tab 09/18/18 10/28/20 Rx Isosorbide Mononitrate [Isosorbide 30 mg PO DAILY 10/22/18 10/28/20 History Mononitrate ER] metOLazone [Zaroxolyn] 2.5 mg PO FR 10/22/18 10/28/20 History Metoprolol Tartrate [Lopressor] 25 mg PO BID #0 tab 03/07/19 10/28/20 Rx Calm Support Supplement 1 cap PO HS 10/28/20 10/28/20 History Calm Support Supplement 2 cap PO DAILY@1600 10/28/20 10/28/20 History Furosemide [Lasix] 40 mg PO DAILY@1400 10/28/20 10/28/20 History Furosemide [Lasix] 60 mg PO DAILY@0800 10/28/20 10/28/20 History Gabapentin [Neurontin] 300 mg PO HS 10/28/20 10/28/20 History Potassium Chloride ER [K-Dur 20] 20 meq PO BID 10/28/20 10/28/20 History Allergies Allergy/AdvReac Type Severity Reaction Status Date / Time Tavfnte-Rby-Rmz Reductase AdvReac Unknown Verified 10/28/20 17:30 Inhibitor Physical Exam Vitals: Vital Signs Temp Pulse Pulse Resp BP BP Pulse Ox 10/29/20 08:00 97.8 F 107 H 18 98/50 98 10/29/20 04:00 97.5 F L 98 18 105/59 99 10/29/20 00:00 97.4 F L 113 H 20 110/69 98 10/28/20 20:10 98.0 F 101 H 18 113/63 100 10/28/20 19:44 97.2 F L 118 H 22 117/69 99 10/28/20 18:42 99 18 96/74 99 10/28/20 18:06 78 18 102/52 98 10/28/20 15:54 98 10/28/20 15:52 97.6 F 117 H 20 100/71 86 L Intake and Output 10/28/20 10/29/20 10/29/20 22:59 06:59 14:59 Output Total 200 Balance -200 Output: Urine 200 Other: Voiding Method Bedside Commode Bedside Commode # Voids 3 # Bowel Movements 1 Weight 77.564 kg 79.1 kg General appearance: The patient is alert, oriented, appears in no acute distress. HET: Head is normocephalic and atraumatic. Conjunctiva pink, sclera anicteric. Neck: Supple without lymphadenopathy. Trachea midline. Heart: S1 S2. Regular rate and rhythm. Lungs: Fair to auscultation. Abdomen: Soft, nontender, nondistended with bowel sounds. No guarding or rigidity. Extremities: Normal skin color and turgor. No pedal edema. Neurological: No focal deficits. Alert and oriented 3. Results CBC & Chem 7: 10/29/20 08:13 10/29/20 08:18 Labs: Abnormal Lab Results - Last 24 Hours (Table) 10/28/20 10/28/20 10/28/20 Range/Units 16:13 16:13 16:13 RBC 2.55 L (3.80-5.40) m/uL Hgb 7.4 L (11.4-16.0) gm/dL Hct 23.6 L (34.0-46.0) % MCHC (31.0-37.0) g/dL RDW 18.8 H (11.5-15.5) % Retic Count (0.5-2.0) % APTT 20.6 L (22.0-30.0) sec Sodium 136 L (137-145) mmol/L Chloride 95 L (98-107) mmol/L Carbon Dioxide 34 H (22-30) mmol/L BUN 57 H (7-17) mg/dL Creatinine 1.67 H (0.52-1.04) mg/dL Magnesium 2.9 H (1.6-2.3) mg/dL Troponin I (0.000-0.034) ng/mL Total Protein 5.9 L (6.3-8.2) g/dL Albumin 3.4 L (3.5-5.0) g/dL 10/28/20 10/28/20 10/28/20 Range/Units 16:13 19:31 22:55 RBC (3.80-5.40) m/uL Hgb (11.4-16.0) gm/dL Hct (34.0-46.0) % MCHC (31.0-37.0) g/dL RDW (11.5-15.5) % Retic Count (0.5-2.0) % APTT (22.0-30.0) sec Sodium (137-145) mmol/L Chloride (98-107) mmol/L Carbon Dioxide (22-30) mmol/L BUN (7-17) mg/dL Creatinine (0.52-1.04) mg/dL Magnesium (1.6-2.3) mg/dL Troponin I 0.071 H* 0.079 H* 0.076 H* (0.000-0.034) ng/mL Total Protein (6.3-8.2) g/dL Albumin (3.5-5.0) g/dL 10/29/20 10/29/20 10/29/20 Range/Units 08:13 08:18 08:38 RBC 2.52 L (3.80-5.40) m/uL Hgb 6.9 L* (11.4-16.0) gm/dL Hct 23.5 L (34.0-46.0) % MCHC 29.3 L (31.0-37.0) g/dL RDW 18.7 H (11.5-15.5) % Retic Count 3.8 H (0.5-2.0) % APTT (22.0-30.0) sec Sodium (137-145) mmol/L Chloride (98-107) mmol/L Carbon Dioxide 35 H (22-30) mmol/L BUN 57 H (7-17) mg/dL Creatinine 1.72 H (0.52-1.04) mg/dL Magnesium (1.6-2.3) mg/dL Troponin I (0.000-0.034) ng/mL Total Protein 5.5 L (6.3-8.2) g/dL Albumin 3.2 L (3.5-5.0) g/dL Assessment and Plan (1) Melena Narrative/Plan: 85-year-old female who was brought to the emergency department by EMS for weakness, fatigue, and shortness of breath. Patient reportedly has had black stools off and on for the last several months. She has full comorbidities including atrial fibrillation for which she states she is not on any anticoagulation. She does however take Aleve frequently for joint pain. She denies any nausea, vomiting, or abdominal pain. She denies any rectal bleeding, hematemesis, or coffee-ground emesis. She denies any previous history of peptic ulcer disease, GI bleed, her previous EGD or colonoscopy. Possible etiologies include peptic ulcer disease, gastritis, esophagitis, AVM, neoplasm or other etiologies need to be considered. Patient has had a remote colonoscopy possib ly, also need to consider possibility of a lower GI source of bleeding so we'll proceed with EGD and colonoscopy. Current Visit: Yes Status: Acute Code(s): K92.1 - MELENA SNOMED Code(s): 1685126 (2) Anemia Current Visit: Yes Status: Acute Code(s): D64.9 - ANEMIA, UNSPECIFIED SNOMED Code(s): 941265470 (3) Chronic a-fib Current Visit: Yes Status: Acute Code(s): I48.2 - CHRONIC ATRIAL FIBRILLATION * DO NOT USE * SNOMED Code(s): 567078039 (4) Elevated troponin Narrative/Plan: Cardiology on consult, state patient is cleared to proceed with EGD and colonoscopy. Current Visit: Yes Status: Acute Code(s): R77.8 - OTHER SPECIFIED ABNORMALITIES OF PLASMA PROTEINS SNOMED Code(s): 074454715 Plan: 1. Symptomatic and supportive care 2. Clear liquid diet, nothing by mouth after midnight 3. Bowel prep this afternoon 4. Daily CBC, transfuse for hemoglobin less than 7 5. Anemia panel ordered 6. Will proceed with EGD and colonoscopy tomorrow. Procedures discussed with patient in detail including risks and benefits, patient seemingly understands and would like to proceed. Thank you for this consultation, we will continue to follow Dr. Pritchett I agree with the dictator's note, documented as a scribe by Alida Ng.
--- NOTE | 2020-10-29 13:12 | P.CRDCN ---
History of Present Illness Consult date: 10/29/20 History of present illness: HISTORY OF PRESENT ILLNESS: This is a 85-year-old female with a past medical history significant for chronic atrial fibrillation not on anticoagulation secondary to GI bleed, COPD with home oxygen use, coronary artery disease with previous stenting and CABG 4 in 1993, hypertension, hyperlipidemia, and chronic kidney disease. Patient follows in the office with Dr. Parada but was last seen in the office in June 2019. We have been asked to see the patient in consultation for CHF. Patient examined at the bedside. Patient is somewhat of a poor historian. There is no family at the bedside. Patient states her son brought her to the hospital because she has been tired lately and has been going back to sleep after eating breakfast. Patient does report feeling dizzy and lightheaded when she gets up too quickly from the bed or a chair. She denies passing out. Patient does report mild shortness of breath recently. She denies chest pain or pressure. The patient was found to be in congestive heart failure upon presentation to the emergency room and was started on IV Lasix. Patient was also found to be anemic with a hemoglobin of 6.9. She is scheduled for EGD and colonoscopy tomorrow with GI. Telemetry reveals atrial fibrillation with mildly uncontrolled ventricular rate Chest xray mild congestive heart failure. Right pleural effusion and right basilar atelectasis increased compared to old exam. Laboratory data: WBC 7.7. Hemoglobin 6.9. Platelet count 288. Sodium 137. Potassium 3.8. BUN 57. Creatinine 1.72. Troponin 0.071. 0.079. 0.076. Current home cardiac medications include Zaroxolyn 2.5 mg on Tuesday, metoprolol titrate 25 mg twice a day, Imdur 30 mg daily, Lasix 60 mg in the morning and 40 mg in the afternoon Echocardiogram obtained revealed ejection fraction 45-50%, basal inferior and inferoseptal LV wall hypokinesis, moderate to severe mitral regurgitation, moderate tricuspid regurgitation, mild pulmonary hypertension Cardiac catheterization history: 2012 revealing new stenosis in distal vein graft to major diagonal branch of LAD 80-90%, distal left main occlusion, to tally occluded RCA, patent LEVIN, and patent SVG to OM REVIEW OF SYSTEMS: At the time of my exam: CONSTITUTIONAL: Denies fever or chills. HEENT: Denies blurred vision, vision changes, or eye pain. Denies hemoptysis CARDIOVASCULAR: Denies chest pain. Denies orthopnea. Denies PND. Denies palpitations RESPIRATORY: Denies shortness of breath. GASTROINTESTINAL: Denies abdominal pain. Denies nausea or vomiting. HEMATOLOGIC: Denies bleeding disorders. GENITOURINARY: Denies any blood in urine. SKIN: Denies pruitis. Denies rash. PHYSICAL EXAM: VITAL SIGNS: Reviewed. GENERAL: Well-developed in no acute distress. HEENT: Head is normocephalic. Pupils are equal, round. Sclerae anicteric. Mucous membranes of the mouth are moist. Neck supple. No JVD or thyromegaly LUNGS: Respirations even and unlabored. Lungs diminished bilaterally. HEART: Irregular rate and rhythm. S1 and S2 heard. ABDOMEN: Soft. Nondistended. Nontender. EXTREMITIES: Normal range of motion. No clubbing or cyanosis. Peripheral pulses intact. No lower extremity edema NEUROLOGIC: Awake and alert. Oriented x 2. ASSESSMENT: Acute exacerbation of diastolic heart failure, ejection fraction 45-50% Acute anemia Chronic persistent atrial fibrillation, not on anticoagulation secondary to history of GI bleeding Coronary artery disease with previous stenting and CABG 1993 Chronic kidney disease Abnormal troponins, not suggestive of acute coronary syndrome, may be secondary to chronic kidney disease and/or demand ischemia secondary to anemia Hypertension Chronic hypoxic respiratory failure, on home oxygen Former nicotine dependence PLAN: Continue home cardiac medications Patient is not on anticoagulation due to history of GI bleeding Patient mildly tachycardic this morning, likely due to acute anemia. Patient to receive RBC transfusion and expect improvement in her heart rate with transfusion. Will not modify beta-lillie dosage at this time. Continue telemetry monitoring. Continue IV Lasix Monitor kidney function Daily weights Accurate I&O Patient to undergo EGD and colonoscopy tomorrow with GI service Patient is high risk to undergo procedure but there are no absolute contraindications from a cardiac standpoint Further recommendations pending patient course Nurse practitioner note has been reviewed by physician. Signing provider agrees with the documented findings, assessment, and plan of care. Past Medical History Past Medical History: Atrial Fibrillation, Coronary Artery Disease (CAD), Chest Pain / Angina, Heart Failure, COPD, GERD/Reflux, Hyperlipidemia, Myocardial Infarction (OR), Osteoarthritis (OA), Pneumonia, Renal Disease Additional Past Medical History / Comment(s): Pt recently admitted to [facility] on 11/24/18 with dyspnea r/t CHF/cardiomyopathy and acute on chronic kidney disease. Other hx: Chronic Afib, neuropathy bilateral feet, gout bilateral feet, falls, occasional low back pain with bilateral sciatica with L side worse, hypothyroid, epistaxis with blood loss anemia, recent memory impairment Last Myocardial Infarction Date:: 2012 History of Any Multi-Drug Resistant Organisms: None Reported Past Surgical History: Appendectomy, Back Surgery, Cardiac Ablation, Cholecystectomy, Coronary Bypass/CABG, Heart Catheterization With Stent, Hysterectomy Additional Past Surgical History / Comment(s): LOW, 1993 CABG-4 vessels, nasal cauterization, colonoscopy with benign polypectomy, D&C, bilateral cataract removals, R breast benign bx, lumbar laminectomy. Past Anesthesia/Blood Transfusion Reactions: Previous Problems w/ Anesthesia Additional Past Anesthesia/Blood Transfusion Reaction / Comment(s): Pt received blood 02/07/12 without reaction after epistaxis. Date of Last Stent Placement:: 03/2013 Past Psychological History: Anxiety, Depression Additional Psychological History / Comment(s): Pt resides alone. She uses a walker to ambulate. She drives. She has home oxygen and a nebulizer. Smoking Status: Former smoker Past Alcohol Use History: Occasional Additional Past Alcohol Use History / Comment(s): Pt has a glass of wine each evening. She started smoking in 1957 and quit in 1986. Past Drug Use History: None Reported - Past Family History Mother Additional Family Medical History / Comment(s): Mother was a heavy drinker. She lived to be in her 80's Father Family Medical History: No Reported History Additional Family Medical History / Comment(s): Father lived to be in his 80's Medications and Allergies Home Medications Medication Instructions Recorded Confirmed Type Escitalopram [Lexapro] 10 mg PO DAILY 07/20/18 10/28/20 History allopurinoL [Zyloprim] 300 mg PO DAILY 07/20/18 10/28/20 History Montelukast [Singulair] 10 mg PO HS #30 tab 09/18/18 10/28/20 Rx Isosorbide Mononitrate [Isosorbide 30 mg PO DAILY 10/22/18 10/28/20 History Mononitrate ER] metOLazone [Zaroxolyn] 2.5 mg PO FR 10/22/18 10/28/20 History Metoprolol Tartrate [Lopressor] 25 mg PO BID #0 tab 03/07/19 10/28/20 Rx Calm Support Supplement 1 cap PO HS 10/28/20 10/28/20 History Calm Support Supplement 2 cap PO DAILY@1600 10/28/20 10/28/20 History Furosemide [Lasix] 40 mg PO DAILY@1400 10/28/20 10/28/20 History Furosemide [Lasix] 60 mg PO DAILY@0800 10/28/20 10/28/20 History Gabapentin [Neurontin] 300 mg PO HS 10/28/20 10/28/20 History Potassium Chloride ER [K-Dur 20] 20 meq PO BID 10/28/20 10/28/20 History Allergies Allergy/AdvReac Type Severity Reaction Status Date / Time Aevlbtw-Zfc-Fni Reductase AdvReac Unknown Verified 10/28/20 17:30 Inhibitor Physical Exam Vitals: Vital Signs Temp Pulse Pulse Resp BP BP Pulse Ox 10/29/20 08:00 97.8 F 107 H 18 98/50 98 10/29/20 04:00 97.5 F L 98 18 105/59 99 10/29/20 00:00 97.4 F L 113 H 20 110/69 98 10/28/20 20:10 98.0 F 101 H 18 113/63 100 10/28/20 19:44 97.2 F L 118 H 22 117/69 99 10/28/20 18:42 99 18 96/74 99 10/28/20 18:06 78 18 102/52 98 10/28/20 15:54 98 10/28/20 15:52 97.6 F 117 H 20 100/71 86 L Intake and Output 10/28/20 10/29/20 10/29/20 22:59 06:59 14:59 Output Total 200 Balance -200 Output: Urine 200 Other: Voiding Method Bedside Commode Bedside Commode # Voids 3 # Bowel Movements 1 Weight 77.564 kg 79.1 kg Results 10/29/20 08:13 10/29/20 08:18 Cardiac Enzymes 10/28/20 10/28/20 10/28/20 Range/Units 16:13 16:13 19:31 AST 21 (14-36) U/L Troponin I 0.071 H* 0.079 H* (0.000-0.034) ng/mL 10/28/20 10/29/20 Range/Units 22:55 08:18 AST 21 (14-36) U/L Troponin I 0.076 H* (0.000-0.034) ng/mL Coagulation 10/28/20 Range/Units 16:13 PT 10.2 (9.0-12.0) sec APTT 20.6 L (22.0-30.0) sec CBC 10/28/20 10/29/20 Range/Units 16:13 08:13 WBC 9.0 7.7 (3.8-10.6) k/uL RBC 2.55 L 2.52 L (3.80-5.40) m/uL Hgb 7.4 L 6.9 L* (11.4-16.0) gm/dL Hct 23.6 L 23.5 L (34.0-46.0) % Plt Count 290 288 (150-450) k/uL Comprehensive Metabolic Panel 10/28/20 10/29/20 Range/Units 16:13 08:18 Sodium 136 L 137 (137-145) mmol/L Potassium 4.2 3.8 (3.5-5.1) mmol/L Chloride 95 L 98 (98-107) mmol/L Carbon Dioxide 34 H 35 H (22-30) mmol/L BUN 57 H 57 H (7-17) mg/dL Creatinine 1.67 H 1.72 H (0.52-1.04) mg/dL Glucose 95 94 (74-99) mg/dL Calcium 9.0 8.9 (8.4-10.2) mg/dL AST 21 21 (14-36) U/L ALT 8 8 (4-34) U/L Alkaline Phosphatase 118 105 (38-126) U/L Total Protein 5.9 L 5.5 L (6.3-8.2) g/dL Albumin 3.4 L 3.2 L (3.5-5.0) g/dL Current Medications Generic Name Dose Route Start Last Admin Trade Name Freq PRN Reason Stop Dose Admin Acetaminophen 650 mg 10/28/20 18:04 Acetaminophen Tab 325 Mg Tab PO Q6HR PRN Mild Pain or Fever > 100.5 Allopurinol 300 mg 10/29/20 09:00 10/29/20 08:24 Allopurinol 300 Mg Tab PO 300 mg DAILY MAIKOL Administration Escitalopram Oxalate 10 mg 10/29/20 09:00 10/29/20 08:24 Escitalopram 10 Mg Tab PO 10 mg DAILY MAIKOL Administration Furosemide 40 mg 10/29/20 09:00 10/29/20 08:24 Furosemide 10 Mg/Ml 4 Ml Vial IV 40 mg Q12HR MAIKOL Administration Gabapentin 300 mg 10/29/20 21:00 Gabapentin 300 Mg Cap PO HS MAIKOL Isosorbide Mononitrate 30 mg 10/29/20 09:00 10/29/20 08:24 Isosorbide Mononitrate Er 30 Mg Tab.Er.24h PO 30 mg DAILY MAIKOL Administration Metolazone 2.5 mg 10/31/20 09:00 Metolazone 2.5 Mg Tab PO FR MAIKOL Metoprolol Tartrate 25 mg 10/29/20 00:15 10/29/20 08:24 Metoprolol Tartrate 25 Mg Tab PO 25 mg BID MAIKOL Administration Montelukast Sodium 10 mg 10/29/20 21:00 Montelukast 10 Mg Tab PO HS MAIKOL Naloxone HCl 0.2 mg 10/28/20 18:04 Naloxone 0.4 Mg/Ml 1 Ml Vial IV Q2M PRN Opioid Reversal Polyethylene Glycol/Electrolytes 4,000 ml 10/29/20 15:00 Peg 3350-Na Sulf,Bicarb,Cl/Kcl 4,000 Ml Bottle PO 10/29/20 15:01 ONCE ONE Potassium Chloride 20 meq 10/29/20 09:00 10/29/20 08:24 Potassium Chloride Er 20 Meq Tab.Er PO 20 meq BID MAIKOL Administration Intake and Output 10/28/20 10/29/20 10/29/20 22:59 06:59 14:59 Output Total 200 Balance -200 Output: Urine 200 Other: Voiding Method Bedside Commode Bedside Commode # Voids 3 # Bowel Movements 1 Weight 77.564 kg 79.1 kg 10/29/20 08:13 10/29/20 08:18
[2020-10-29] MEDS ORDERED: PEG 3350-NA SULF,BICARB,CL/KCL 4,000 ML BOTTLE PO ONE (15:00)
[2020-10-29] MEDS ORDERED: [UNRECOGNIZED DRUG - OTHER] PO SCH (16:00)
[2020-10-29] MEDS ORDERED: ONDANSETRON 4 MG/2 ML VIAL IVP STA (17:12)
[2020-10-29 17:13] LABS: Ferritin 38.6 ng/mL (10.0-291.0); Folate, Serum 4.2 ng/mL
[2020-10-29 18:07] LABS: % Iron Saturation 5.07 (12.00-45.00)
[2020-10-29] MEDS: MONTELUKAST 10 MG TAB PO SCH (20:12)
[2020-10-29] MEDS: GABAPENTIN 300 MG CAP PO SCH (20:12)
[2020-10-29] MEDS ORDERED: [UNRECOGNIZED DRUG - OTHER] PO SCH (21:00)
[2020-10-30] MEDS ORDERED: MAGNESIUM CITRATE 296 ML BOTTLE PO ONE (06:15)
[2020-10-30] MEDS: METOPROLOL TARTRATE 25 MG TAB PO SCH (08:54)
[2020-10-30] MEDS: FUROSEMIDE 10 MG/ML 4 ML VIAL IV SCH (08:54)
[2020-10-30] MEDS: ESCITALOPRAM 10 MG TAB PO SCH (08:55)
[2020-10-30] MEDS: POTASSIUM CHLORIDE ER 20 MEQ TAB.ER PO SCH ×2 (08:55→21:15)
[2020-10-30] MEDS: ISOSORBIDE MONONITRATE ER 30 MG TAB.ER.24H PO SCH (08:55)
[2020-10-30] MEDS: allopurinoL 300 MG TAB PO SCH (08:55)
[2020-10-30 10:40] LABS: Albumin 3.5 g/dL (3.5-5.0); Calcium 9.2 mg/dL (8.4-10.2); Potassium 3.3 mmol/L (3.5-5.1); Total Bilirubin 0.7 mg/dL (0.2-1.3)
[2020-10-30 10:45] LABS: Anisocytosis Slight; Basophils # (A) 0.1 k/uL (0-0.2); Basophils % (A) 1 %; Eosinophils # (A) 0.3 k/uL (0-0.7); Eosinophils % (A) 4 %; HCT 29.9 % (34.0-46.0); Hypochromasia Marked; Lymphocytes % (A) 13 %; MCH 26.4 pg (25.0-35.0); MCHC 28.7 g/dL (31.0-37.0); MCV 91.9 fL (80.0-100.0); Mean Platelet Volume 7.1; Monocytes # (A) 0.5 k/uL (0-1.0); Monocytes % (A) 6 %; Neutrophils # (A) 6.3 k/uL (1.3-7.7); Neutrophils % (A) 76 %; Platelet Count 313 k/uL (150-450); Poikilocytosis Moderate; RBC 3.25 m/uL (3.80-5.40); RDW 19.1 % (11.5-15.5); WBC 8.2 k/uL (3.8-10.6)
[2020-10-30 10:47] LABS: HGB 8.6 gm/dL (11.4-16.0)
--- NOTE | 2020-10-30 11:06 | CDI ---
Documentation Clarification Form Date: 10/30/2020 10:44 AM From: Mirian Avelar RN CCDS Admit Date: 10/28/2020 06:04:00 PM Patient Name: Gisela Harman Visit Number: [id number] Discharge Date: ATTENTION: The Clinical Documentation Specialists (CDI) and [facility] Coding Staff appreciate your assistance in clarifying documentation. Please respond to the clarification below the line at the bottom and electronically sign. The CDI & [facility] Coding staff will review the response and follow-up if needed. Please note: Queries are made part of the Legal Health Record. If you have any questions, please contact the author of this message via ITS. Dr. Cristhian Jj Demand ischemia secondary to anemia 10/29 Cardiology consult. Please clarify if there is an additional diagnosis. Patient History/Risk Factors: 85-year-old female presents to the ED with worsening shortness of breath and generalized weakness. Medical history: Persistent atrial fib, HLD, CHF, chronic anemia, CKD III, NC and Coronary Bypass. Clinical Indicators: Abnormal troponins, not suggestive of acute coronary syndrome, may be secondary to chronic kidney disease and /or demand ischemia secondary to anemia. Cardiology consult 10/29 Troponin: 10/28 0.079; 0.076 EKG Results: H fibrillation with RVR, right axis, rate of 104, QRS duration 110, QTC 462, no ST segment elevation, there is some ST segment depression in V2 V3 V4 and V5. ED note 10/28. Lab: 10/28 Hgb 7.4; 10/29 Hgb 6.9. ECHO: 10/29 EF 45-50%, basal inferior and inferoseptal LV wall hypokinesis, moderate to severe mitral regurgitation, moderate tricuspid regurgitation, mild pulmonary hypertension. Treatment: 10/29 1 Unit PRBC infusion. Please clarify the etiology of the Type 2 NC, if known: [ ] Type 2 NC due to Anemia [ ] Type 2 NC due to other (please specify ) [ ] Unable to determine [ ] Other Condition, please specify (Template Last Revised: July 2020) No Type 2 NC MTDD
[2020-10-30] MEDS ORDERED: METOPROLOL TARTRATE 25 MG TAB PO STA (11:25)
[2020-10-30] MEDS: LACTATED RINGERS 1,000 ML IV SCH (11:46)
[2020-10-30] MEDS: SODIUM FERRIC GLUCONAT-SUCROSE 125 MG in SODIUM CHLORIDE 0.9% 100 ML IVPB SCH (11:47)
--- NOTE | 2020-10-30 11:55 | P.PN ---
Subjective Progress Note Date: 10/30/20 Principal diagnosis: Pulmonary consult dated 10/29/2020. 85-year-old female that we were asked to see because of shortness of breath. The patient was evaluated in the emergency room on October 28. The patient apparently came in with generalized weakness and shortness of breath. She states that her son wanted her to come into the emergency room. She was laying around the house too much. There is no chest pain or chest discomfort. No abdominal pain. No fever or chills. The patient denied any vomiting or diarrhea. There are no genitourinary complaints. The patient is not practically good historian. The patient does have a history of chronic atrial fibrillation, CAD, angina, heart failure, GERD, COPD, hyperlipidemia, myocardial infarction, DJD, and acute on chronic kidney disease. White count of 7.7, hemoglobin 6.9, hematocrit 23.5, platelet count 288,000. Sodium potassium chloride normal. CO2 35. BUN and creatinine were 57 and 1.72 respectively. Troponins were 0.079 and 0.076. Chest x-ray was consistent with CHF, and a right-sided pleural effusion. On 10/30/2020 patient seen in follow-up on selective care unit, she is awake and alert, oriented 3, she is completing her prep for EGD and colonoscopy today, appears to be breathing comfortably, she is on 3 L her pulse ox is 96%. She remains on Lasix at 40 mg every 12 hours, and Zaroxolyn 2.5 mg once weekly schedule, vital signs have been stable. No worsening dyspnea. No new chest x- ray today. Yesterday patient received a unit of packed red blood cells for hemoglobin of 6.9, this morning is hemoglobin is 8.6, white blood cell count is 8.2, platelet count is 313, her reticulocyte count was 3.8, sodium is 138, potassium 3.3, chloride is 95, CO2 33, BUN is 51 and creatinine is 1.62. Objective - Vital Signs Vital signs: Vital Signs Temp 98.0 F 10/30/20 08:48 Pulse 129 H 10/30/20 11:44 Resp 18 10/30/20 11:44 BP 97/64 10/30/20 11:44 Pulse Ox 97 10/30/20 11:44 Intake & Output 10/29/20 10/30/20 10/30/20 18:59 06:59 18:59 Intake Total 850 0 Output Total 500 Balance 350 0 Weight 78.4 kg Intake: Oral 540 0 Blood Product 310 Rc Irr As1 Unit 310 [id number] Output: Urine 500 Other: Voiding Method Bedside Commode # Bowel Movements 1 - Exam GENERAL EXAM: Alert, very pleasant, 85-year-old white female, on 3 L of oxygen with pulse ox of 97%, comfortable in no apparent distress. HEAD: Normocephalic/atraumatic. EYES: Normal reaction of pupils, equal size. Conjunctiva pink, sclera white. NOSE: Clear with pink turbinates. THROAT: No erythema or exudates. NECK: No masses, no JVD, no thyroid enlargement, no adenopathy. CHEST: No chest wall deformity. Symmetrical expansion. LUNGS: Equal air entry with no crackles, wheeze, rhonchi or dullness. CVS: Regular rate and rhythm, normal S1 and S2, no gallops, no murmurs, no rubs ABDOMEN: Soft, nontender. No hepatosplenomegaly, normal bowel sounds, no guarding or rigidity. EXTREMITIES: No clubbing, no edema, no cyanosis, 2+ pulses and upper and lower extremities. MUSCULOSKELETAL: Muscle strength and tone normal. SPINE: No scoliosis or deformity SKIN: No rashes CENTRAL NERVOUS SYSTEM: Alert and oriented -3. No focal deficits, tone is normal in all 4 extremities. PSYCHIATRIC: Alert and oriented -3. Appropriate affect. Intact judgment and insight. - Labs CBC & Chem 7: 10/30/20 09:19 10/30/20 09:19 Labs: Abnormal Lab Results - Last 24 Hours (Table) 10/29/20 10/29/20 10/30/20 Range/Units 08:18 10:27 09:19 RBC 3.25 L (3.80-5.40) m/uL Hgb 8.6 L D (11.4-16.0) gm/dL Hct 29.9 L (34.0-46.0) % MCHC 28.7 L (31.0-37.0) g/dL RDW 19.1 H (11.5-15.5) % Potassium (3.5-5.1) mmol/L Chloride (98-107) mmol/L Carbon Dioxide (22-30) mmol/L BUN (7-17) mg/dL Creatinine (0.52-1.04) mg/dL Iron 18 L (50-170) ug/dL % Saturation 5.07 L (12.00-45.00) Total Protein (6.3-8.2) g/dL Crossmatch See Detail 10/30/20 Range/Units 09:19 RBC (3.80-5.40) m/uL Hgb (11.4-16.0) gm/dL Hct (34.0-46.0) % MCHC (31.0-37.0) g/dL RDW (11.5-15.5) % Potassium 3.3 L (3.5-5.1) mmol/L Chloride 95 L (98-107) mmol/L Carbon Dioxide 33 H (22-30) mmol/L BUN 51 H (7-17) mg/dL Creatinine 1.62 H (0.52-1.04) mg/dL Iron (50-170) ug/dL % Saturation (12.00-45.00) Total Protein 6.0 L (6.3-8.2) g/dL Crossmatch Assessment and Plan Plan: Assessment: #1. Acute hypoxic respiratory failure related to acute exacerbation of diastolic CHF #2. Acute anemia, status post transfusion with 1 unit of packed red blood cells, awaiting EGD and colonoscopy today #3. Chronic persistent A. fib, not on any chronic anticoagulation related to previous history of GI bleeding #4. Coronary artery disease with previous stenting and CABG 4 #5. Chronic kidney disease #6. Hypertension #7. History of COPD #8. Previous history of pneumonia #9. Former smoker Plan: Continue diuretic therapy per cardiology [place] labs including electrolytes, no profile, and H&H Patient is going for EGD with colonoscopy today No worsening breathing We'll obtain follow-up chest x-ray tomorrow We'll continue to follow I performed a history & physical examination of the patient and discussed their management with my nurse practitioner, Funmilayo Dee. I reviewed the nurse practitioner's note and agree with the documented findings and plan of care. Lung sounds are positive for diminished breath sounds. The findings and the impression was discussed with the patient. I attest to the documentation by the nurse practitioner. Time with Patient: Less than 30
[2020-10-30] MEDS ORDERED: IV FLUID CONTINUATION 800 ML IV ONE (13:03)
[2020-10-30] MEDS ORDERED: PROPOFOL 10 MG/ML 20 ML VIAL IV ONE (13:06)
[2020-10-30] MEDS ORDERED: LIDOCAINE 1% INJ 10MG/ML (20 ML MDV) ONE (13:06)
--- NOTE | 2020-10-30 13:50 | P.PN ---
Subjective Progress Note Date: 10/30/20 HISTORY OF PRESENT ILLNESS: This is a 85-year-old female with a past medical history significant for chronic atrial fibrillation not on anticoagulation secondary to GI bleed, COPD with home oxygen use, coronary artery disease with previous stenting and CABG 4 in 1993, hypertension, hyperlipidemia, and chronic kidney disease. Patient follows in the office with Dr. Parada but was last seen in the office in June 2019. We have been asked to see the patient in consultation for CHF. Patient examined at the bedside. Patient is somewhat of a poor historian. There is no family at the bedside. Patient states her son brought her to the hospital because she has been tired lately and has been going back to sleep after eating breakfast. Patient does report feeling dizzy and lightheaded when she gets up too quickly from the bed or a chair. She denies passing out. Patient does report mild shortness of breath recently. She denies chest pain or pressure. The patient was found to be in congestive heart failure upon presentation to the emergency room and was started on IV Lasix. Patient was also found to be anemic with a hemoglobin of 6.9. She is scheduled for EGD and colonoscopy tomorrow with GI. Telemetry reveals atrial fibrillation with mildly uncontrolled ventricular rate Chest xray mild congestive heart failure. Right pleural effusion and right basilar atelectasis increased compared to old exam. Laboratory data: WBC 7.7. Hemoglobin 6.9. Platelet count 288. Sodium 137. Potassium 3.8. BUN 57. Creatinine 1.72. Troponin 0.071. 0.079. 0.076. Current home cardiac medications include Zaroxolyn 2.5 mg on Tuesday, metoprolol titrate 25 mg twice a day, Imdur 30 mg daily, Lasix 60 mg in the morning and 40 mg in the afternoon Echocardiogram obtained revealed ejection fraction 45-50%, basal inferior and inferoseptal LV wall hypokinesis, moderate to severe mitral regurgitation, moderate tricuspid regurgitation, mild pulmonary hypertension Cardiac catheterization history: 2012 revealing new stenosis in distal vein graft to major diagonal branch of LAD 80-90%, distal left main occlusion, totally occluded RCA, patent LEVIN, and patent SVG to OM 10/30/2020 Patient examined this morning the bedside. Patient denies chest pain or press ure. She denies shortness of breath. Patient received RBC transfusion yesterday. Hemoglobin 8.6 today. She is scheduled for endoscopic evaluation today per GI service. Patient remains in atrial fibrillation. Heart rate in the 110s. PHYSICAL EXAM: VITAL SIGNS: Reviewed. GENERAL: Well-developed in no acute distress. HEENT: Head is normocephalic. Pupils are equal, round. Sclerae anicteric. Mucous membranes of the mouth are moist. Neck supple. No JVD or thyromegaly LUNGS: Respirations even and unlabored. Lungs diminished bilaterally. HEART: Tachycardic. Irregular rate and rhythm. S1 and S2 heard. EXTREMITIES: Normal range of motion. No clubbing or cyanosis. Peripheral pulses intact. No lower extremity edema ASSESSMENT: Acute exacerbation of diastolic heart failure, ejection fraction 45-50% Acute anemia Chronic persistent atrial fibrillation, not on anticoagulation secondary to history of GI bleeding Coronary artery disease with previous stenting and CABG 1993 Chronic kidney disease Abnormal troponins, not suggestive of acute coronary syndrome, may be secondary to chronic kidney disease and/or demand ischemia secondary to anemia Hypertension Chronic hypoxic respiratory failure, on home oxygen Former nicotine dependence PLAN: Continue home cardiac medications Patient is not on anticoagulation due to history of GI bleeding Increase metoprolol for optimal heart rate control Discontinue IV Lasix. Resume oral Lasix 60mg in AM and 40mg in the afternoon Monitor kidney function Daily weights Accurate I&O Patient to undergo EGD and colonoscopy with GI service Patient is high risk to undergo procedure but there are no absolute contraindications from a cardiac standpoint Further recommendations pending patient course Nurse practitioner note has been reviewed by physician. Signing provider agrees with the documented findings, assessment, and plan of care. Objective - Vital Signs Vital signs: Vital Signs Temp 98.0 F 10/30/20 08:48 Pulse 129 H 10/30/20 11:44 Resp 18 10/30/20 11:44 BP 97/64 10/30/20 11:44 Pulse Ox 97 10/30/20 11:44 Intake & Output 10/29/20 10/30/20 10/30/20 18:59 06:59 18:59 Intake Total 850 0 Output Total 500 Balance 350 0 Weight 78.4 kg Intake: Oral 540 0 Blood Product 310 Rc Irr As1 Unit 310 [id number] Output: Urine 500 Other: Voiding Method Bedside Commode # Bowel Movements 3 - Labs CBC & Chem 7: 10/30/20 09:19 10/30/20 09:19 Labs: Abnormal Lab Results - Last 24 Hours (Table) 10/29/20 10/29/20 10/30/20 Range/Units 08:18 10:27 09:19 RBC 3.25 L (3.80-5.40) m/uL Hgb 8.6 L D (11.4-16.0) gm/dL Hct 29.9 L (34.0-46.0) % MCHC 28.7 L (31.0-37.0) g/dL RDW 19.1 H (11.5-15.5) % Potassium (3.5-5.1) mmol/L Chloride (98-107) mmol/L Carbon Dioxide (22-30) mmol/L BUN (7-17) mg/dL Creatinine (0.52-1.04) mg/dL Iron 18 L (50-170) ug/dL % Saturation 5.07 L (12.00-45.00) Total Protein (6.3-8.2) g/dL Crossmatch See Detail 10/30/20 Range/Units 09:19 RBC (3.80-5.40) m/uL Hgb (11.4-16.0) gm/dL Hct (34.0-46.0) % MCHC (31.0-37.0) g/dL RDW (11.5-15.5) % Potassium 3.3 L (3.5-5.1) mmol/L Chloride 95 L (98-107) mmol/L Carbon Dioxide 33 H (22-30) mmol/L BUN 51 H (7-17) mg/dL Creatinine 1.62 H (0.52-1.04) mg/dL Iron (50-170) ug/dL % Saturation (12.00-45.00) Total Protein 6.0 L (6.3-8.2) g/dL Crossmatch
--- NOTE | 2020-10-30 13:51 | P.PCN ---
Date of Procedure: 10/30/20 Description of Procedure: Brief history: 85-year-old female who presented to the hospital because she has been weak and tired for the last several months. She has a past medical history of atrial fibrillation, coronary artery disease, angina, heart failure, COPD, GERD, hyperlipidemia, myocardial infarction, osteoarthritis, and renal disease. She denies any anticoagulation, but states she takes Aleve frequently for pain. She states she has been having dark stools off and on for months. She denies any abdominal pain, nausea, or vomiting. States she has had some shortness of breath along with her weakness and fatigue. She believes she may have had a colonoscopy remotely, but unsure, no history of peptic ulcer disease or previous EGD. Dates otherwise normal bowel movements are every day to every other day. She denies any hematemesis workup current emesis. On admission she's had trending elevated troponins for which cardiology is on consult. Labs include WBC 9, hemoglobin 7.4, hematocrit 23.6, platelets 290,000, INR 0.9. Procedure performed: Esophagogastroduodenoscopy with biopsy Colonoscopy with polypectomy Estimated blood loss: Minimal. Preoperative diagnosis: Iron deficiency anemia Anesthesia: MAC Procedure: After informed consent was obtained from the patient was brought into the endoscopy unit and IV sedation was administered by anesthesia under continuous monitoring. Initially upper endoscopy was done. The Olympus GF 190 video endoscope was inserted into the mouth and esophagus intubated without any difficulty and was gradually advanced into the stomach and duodenum and carefully examined. The bulb and second part of the duodenum appeared normal, except for a small linear ulcer measuring 2 mm in size in the duodenal sweep with biopsies of the duodenum and duodenal ulcer taken. The scope was then withdrawn into the stomach adequately insufflated with air and upon careful examination the antrum and body, cardia and fundus were significant for some mild scattered erythema in the antrum and body suggestive of mild gastritis with biopsies taken. There were also 4 linear superficial nonbleeding ulcers in the gastric antrum measuring size from 3 mm to 5 mm with biopsies of the antral ulcer. The scope was then withdrawn into the esophagus. The GE junction was located at 38 cm to the incisors. It appeared regular with no erythema erosions or ulcerations. Rest of the esophagus appeared normal. Patient tolerated the procedure well. At this time the patient continued to remain sedation. Initial digital rectal examination was normal. Olympus CF 190 video colonoscope was then inserted into the rectum and gradually advanced to the cecum without any difficulty. Careful examination was performed as the scope was gradually being withdrawn. The prep was excellent. The cecum, ascending colon, transverse colon, descending colon, sigmoid colon and rectum appeared normal. Multiple small and large mouth diverticula noted throughout the colon. Diminutive polyps measuring 1-2 mm in size removed from the cecum and transverse colon with cold forcep polypectomy. Retroflexion was performed in the rectum and no lesions were noted, low-grade internal hemorrhoids . Patient tolerated the procedure well. Impression: 1. Nonbleeding ulcers noted in the gastric antrum and duodenum without high risk stigmata for bleeding. Mild gastritis. Biopsies of the duodenum, antrum body, duodenal ulcer and antral ulcers. 2. moderate pandiverticulosis. 2 diminutive polyps removed cold forcep polypectomy from the cecum and transverse colon. Internal hemorrhoids. Recommendations: Findings of this examination were discussed with the patient as well as her children. Okay to resume diet. Okay to resume medications. Recommend strict avoidance of NSAID medications. Patient should be discharged on twice daily Protonix therapy. No plans for further endoscopic evaluation at this time and patient is okay for discharge when otherwise medically stable from a GI standpoint. The GI service will stand by, please call us back with any questions or concerns
[2020-10-30] MEDS: FUROSEMIDE 40 MG TAB PO SCH (16:22)
[2020-10-30] MEDS: PANTOPRAZOLE 40 MG TABLET PO SCH (16:22)
[2020-10-30] MEDS: MONTELUKAST 10 MG TAB PO SCH (21:15)
[2020-10-30] MEDS: METOPROLOL TARTRATE 50 MG TAB PO SCH (21:15)
[2020-10-30] MEDS: GABAPENTIN 300 MG CAP PO SCH (21:15)
[2020-10-31] MEDS: PANTOPRAZOLE 40 MG TABLET PO SCH (06:45)
[2020-10-31 08:40] LABS: Albumin 3.4 g/dL (3.5-5.0); Calcium 9.3 mg/dL (8.4-10.2); Potassium 3.8 mmol/L (3.5-5.1); Total Bilirubin 0.5 mg/dL (0.2-1.3); Total Protein 5.9 g/dL (6.3-8.2)
[2020-10-31 08:47] LABS: Anisocytosis Slight; Basophils # (A) 0.1 k/uL (0-0.2); Basophils % (A) 1 %; Eosinophils # (A) 0.3 k/uL (0-0.7); Eosinophils % (A) 4 %; HCT 27.3 % (34.0-46.0); HGB 8.4 gm/dL (11.4-16.0); Hypochromasia Marked; Lymphocytes # (A) 1.2 k/uL (1.0-4.8); Lymphocytes % (A) 15 %; MCHC 30.6 g/dL (31.0-37.0); MCV 91.4 fL (80.0-100.0); Mean Platelet Volume 7.1; Monocytes # (A) 0.4 k/uL (0-1.0); Monocytes % (A) 4 %; Neutrophils % (A) 75 %; Platelet Count 321 k/uL (150-450); Poikilocytosis Slight; RBC 2.98 m/uL (3.80-5.40); RDW 18.9 % (11.5-15.5); WBC 8.1 k/uL (3.8-10.6)
--- NOTE | 2020-10-31 08:54 | P.PN ---
Subjective Progress Note Date: 10/31/20 Principal diagnosis: CHF. Pulmonary consult dated 10/29/2020. 85-year-old female that we were asked to see because of shortness of breath. The patient was evaluated in the emergency room on October 28. The patient apparently came in with generalized weakness and shortness of breath. She states that her son wanted her to come into the emergency room. She was laying around the house too much. There is no chest pain or chest discomfort. No abdominal pain. No fever or chills. The patient denied any vomiting or diarrhea. There are no genitourinary complaints. The patient is not practically good historian. The patient does have a history of chronic atrial fibrillation, CAD, angina, heart failure, GERD, COPD, hyperlipidemia, myocardial infarction, DJD, and acute on chronic kidney disease. White count of 7.7, hemoglobin 6.9, hematocrit 23.5, platelet count 288,000. Sodium potassium chloride normal. CO2 35. BUN and creatinine were 57 and 1.72 respectively. Troponins were 0.079 and 0.076. Chest x-ray was consistent with CHF, and a right-sided pleural effusion. On 10/30/2020 patient seen in follow-up on selective care unit, she is awake and alert, oriented 3, she is completing her prep for EGD and colonoscopy today, appears to be breathing comfortably, she is on 3 L her pulse ox is 96%. She remains on Lasix at 40 mg every 12 hours, and Zaroxolyn 2.5 mg once weekly schedule, vital signs have been stable. No worsening dyspnea. No new chest x- ray today. Yesterday patient received a unit of packed red blood cells for hemoglobin of 6.9, this morning is hemoglobin is 8.6, white blood cell count is 8.2, platelet count is 313, her reticulocyte count was 3.8, sodium is 138, potassium 3.3, chloride is 95, CO2 33, BUN is 51 and creatinine is 1.62. Progress note dated 10/31/2020. Currently, the patient seems be doing better. She is laying in bed on her right side. No distress. Vital signs include temperature 97.9, heart rate 94, respiratory rate 18, blood pressure 96/54, mean 68, with a 3 L saturation of 98%. Lab data includes a white count 8.1, hemoglobin 8.4, hematocrit 27.3, and platelet count 321,000. Sodium 137, potassium 3.8, chlorides 94, CO2 37, anion gap 6, BUN 48, creatinine 1.89. Objective - Vital Signs Vital signs: Vital Signs Temp 97.9 F 10/31/20 04:00 Pulse 94 10/31/20 04:00 Resp 18 10/31/20 04:00 BP 96/54 10/31/20 04:00 Pulse Ox 98 10/31/20 04:00 Intake & Output 10/30/20 10/31/20 10/31/20 18:59 06:59 18:59 Intake Total 300 10 10 Output Total 150 Balance 300 -140 10 Weight 77.8 kg Intake: IV 300 10 10 Invasive Line 2 10 Invasive Line 3 10 Oral 0 Output: Urine 150 Other: Voiding Method Bedside Commode # Voids 1 # Bowel Movements 3 - Exam No acute distress, oriented 3. 3 L saturation is 97%. HEENT examination is grossly unremarkable. Neck supple. Full range of motion. No adenopathy thyromegaly or neck vein distention. Cardiovascular examination reveals regular rhythm rate. S1-S2 normal. No S3 or S4. No discernible murmur noted. Heart sounds are distant. Heart rate is 94 bpm. Lungs reveal bibasilar crackles. No wheezes or rhonchi. Breath sounds equal bilaterally. Abdomen soft bowel sounds are heard. No masses or tenderness. Extremities are intact. No cyanosis clubbing or edema. Skin is without rash or lesion. Neurologic examination is brief but nonfocal. - Labs CBC & Chem 7: 10/31/20 07:48 10/31/20 07:48 Labs: Abnormal Lab Results - Last 24 Hours (Table) 10/30/20 10/30/20 10/31/20 Range/Units 09:19 09:19 07:48 RBC 3.25 L 2.98 L (3.80-5.40) m/uL Hgb 8.6 L D 8.4 L (11.4-16.0) gm/dL Hct 29.9 L 27.3 L (34.0-46.0) % MCHC 28.7 L 30.6 L (31.0-37.0) g/dL RDW 19.1 H 18.9 H (11.5-15.5) % Potassium 3.3 L (3.5-5.1) mmol/L Chloride 95 L (98-107) mmol/L Carbon Dioxide 33 H (22-30) mmol/L BUN 51 H (7-17) mg/dL Creatinine 1.62 H (0.52-1.04) mg/dL Total Protein 6.0 L (6.3-8.2) g/dL Albumin (3.5-5.0) g/dL 10/31/20 Range/Units 07:48 RBC (3.80-5.40) m/uL Hgb (11.4-16.0) gm/dL Hct (34.0-46.0) % MCHC (31.0-37.0) g/dL RDW (11.5-15.5) % Potassium (3.5-5.1) mmol/L Chloride 94 L (98-107) mmol/L Carbon Dioxide 37 H (22-30) mmol/L BUN 48 H (7-17) mg/dL Creatinine 1.89 H (0.52-1.04) mg/dL Total Protein 5.9 L (6.3-8.2) g/dL Albumin 3.4 L (3.5-5.0) g/dL Assessment and Plan Assessment: Acute congestive heart failure. Anemia, status post 1 unit of PRBCs. Status post EGD and colonoscopy, which revealed nonbleeding ulcers noted in the gastric antrum and duodenum, without high risk for bleeding. In addition, there was mild gastritis, moderate lyman-diverticulosis, and small polyps removed from the cecum and transverse colon. Chronic kidney disease. Chronic atrial fibrillation. History of CAD, with previous catheterization and stenting. Status post bypass grafting. History of gastroesophageal reflux disease. History of hyperlipidemia. Prior history of myocardial infarction. Questionable history of COPD, as the patient did smoke quit smoking more than 40 years ago. Plan: Plan dated 10/29/2020. The patient's increased shortness of breath relates to acute congestive heart failure. Her examination and laboratory data would support that as well as her chest x-ray. She may have some underlying COPD. She did smoke in the past but quit more than 40 years ago. No additional recommendations are made. She's not in any distress. We will continue to follow make recommendations where appropriate. Plan dated 10/31/2020. The patient is doing well. Stable from the pulmonary standpoint. She is on 3 L. The results of her EGD and colonoscopy are reviewed. The patient may have some underlying COPD. We recommended outpatient evaluation which included complete PFTs. That can be done once the patient is discharged. No additional recommendations are made. We'll see the patient only as needed in the future. Time with Patient: Less than 30
[2020-10-31] MEDS: LACTATED RINGERS 1,000 ML IV SCH (09:22)
[2020-10-31] MEDS: allopurinoL 300 MG TAB PO SCH (09:45)
[2020-10-31] MEDS: POTASSIUM CHLORIDE ER 20 MEQ TAB.ER PO SCH ×2 (09:45→20:50)
[2020-10-31] MEDS: metOLazone 2.5 MG TAB PO SCH (09:45)
[2020-10-31] MEDS: ISOSORBIDE MONONITRATE ER 30 MG TAB.ER.24H PO SCH (09:45)
[2020-10-31] MEDS: METOPROLOL TARTRATE 50 MG TAB PO SCH ×3 (09:45→23:10)
[2020-10-31] MEDS: ESCITALOPRAM 10 MG TAB PO SCH (09:45)
[2020-10-31] MEDS: SODIUM FERRIC GLUCONAT-SUCROSE 125 MG in SODIUM CHLORIDE 0.9% 100 ML IVPB SCH (09:45)
[2020-10-31] MEDS: FUROSEMIDE 20 MG TAB PO SCH (09:47)
--- NOTE | 2020-10-31 10:33 | P.PN ---
Subjective Progress Note Date: 10/30/20 Gisela Harman is an 85-year-old female who presented to [facility] with a chief complaint of worsening shortness of breath and generalized weakness. Patient stated that her symptoms started month ago however she was feeling much worse in the last few days. Otherwise she denies any complaints there is no fever or chills no headache or dizziness no chest pain no cough no nausea or vomiting no abdominal pain no diarrhea no blood in the stools no burning with urination no frequency or urgency and no hematuria. There is no weakness or numbness in any of the extremities no change in her vision speech or gait. Patient has a known history of persistent atrial fibrillation, history of hypertension, history of hyperlipidemia, history of hypothyroidism, history of gout, history of chronic diastolic congestive heart failure, history of chronic kidney disease stage III with history of cardiorenal syndrome, and history of chronic anemia. Her last admission to the hospital was in February 2019. She was evaluated in the emergency room vital examination on presentation revealed a temperature of 97.6 heart rate 117 respiration 20 blood pressure 100/71 pulse ox 86% on room air, laboratory data revealed a white blood count of 9.0 hemoglobin 7.4 platelet count 290 sodium 136 BUN 57 and creatinine 1.67 troponin level was 0.071 chest x-ray revealed evidence of mild congestive heart failure and right pleural effusion and right basilar atelectasis , patient was admitted to telemetry floor cardiology consultation and pulmonary consultation were requested. Patient is very hard of hearing, history and review of symptoms mostly provided by her son who was at the bedside at the time of my exam, On 10/29/2020 patient is alert resting comfortably in bed. Patient is extremely hard of hearing. 2-D echo is in process. Patient remains on IV Lasix. Hemoglobin 6.9 1 unit PRBCs have been ordered. GI services have been consulted for anemia. Pulmonary and cardiology services also following. At this time patient denies any chest pain. Patient denies nausea vomiting or diarrhea. P atient denies any urinary burning or frequency. On 10/30/2020 patient alert and Gillespie oriented resting on telemetry bed. Plans for EGD and colonoscopy today per GI services status post transfusion of 1 unit of PRBCs. Hemoglobin 8.6. Pulmonary, cardiology and GI service is currently following. At this time patient denies chest pain or shortness breath. Patient denies nausea vomiting or diarrhea. Patient denies urinary burning or frequency Objective - Vital Signs Vital signs: Vital Signs Temp 98.0 F 10/30/20 08:48 Pulse 129 H 10/30/20 11:44 Resp 18 10/30/20 11:44 BP 97/64 10/30/20 11:44 Pulse Ox 97 10/30/20 11:44 Intake & Output 10/29/20 10/30/20 10/30/20 18:59 06:59 18:59 Intake Total 850 0 Output Total 500 Balance 350 0 Weight 78.4 kg Intake: Oral 540 0 Blood Product 310 Rc Irr As1 Unit 310 [id number] Output: Urine 500 Other: Voiding Method Bedside Commode # Bowel Movements 1 - Exam In general patient is alert and oriented x 3 in no distress HEENT head normocephalic and atraumatic Neck is supple no JVD no goiter no lymphadenopathy no carotid bruit Chest examination is clear to auscultation no crackles no wheezing Cardiac exam reveals regular heart sounds S1 and S2 no gallops no murmurs Abdomen is soft nontender no organomegaly with normal bowel sounds Extremity exam reveals no edema no cyanosis or clubbing Neurological examination reveals no gross focal deficits - Labs CBC & Chem 7: 10/31/20 07:48 10/31/20 07:48 Labs: Abnormal Lab Results - Last 24 Hours (Table) 10/29/20 10/29/20 10/30/20 Range/Units 08:18 10:27 09:19 RBC 3.25 L (3.80-5.40) m/uL Hgb 8.6 L D (11.4-16.0) gm/dL Hct 29.9 L (34.0-46.0) % MCHC 28.7 L (31.0-37.0) g/dL RDW 19.1 H (11.5-15.5) % Potassium (3.5-5.1) mmol/L Chloride (98-107) mmol/L Carbon Dioxide (22-30) mmol/L BUN (7-17) mg/dL Creatinine (0.52-1.04) mg/dL Iron 18 L (50-170) ug/dL % Saturation 5.07 L (12.00-45.00) Total Protein (6.3-8.2) g/dL Crossmatch See Detail 10/30/20 Range/Units 09:19 RBC (3.80-5.40) m/uL Hgb (11.4-16.0) gm/dL Hct (34.0-46.0) % MCHC (31.0-37.0) g/dL RDW (11.5-15.5) % Potassium 3.3 L (3.5-5.1) mmol/L Chloride 95 L (98-107) mmol/L Carbon Dioxide 33 H (22-30) mmol/L BUN 51 H (7-17) mg/dL Creatinine 1.62 H (0.52-1.04) mg/dL Iron (50-170) ug/dL % Saturation (12.00-45.00) Total Protein 6.0 L (6.3-8.2) g/dL Crossmatch Assessment and Plan Plan: Acute on chronic diastolic congestive heart failure Right pleural effusion and right basilar atelectasis Elevated troponin level, will check serial EKGs and cardiac enzymes Significant anemia. Hemoglobin 6.9 requiring 1 unit of PRBCs Underlying history of chronic persistent atrial fibrillation heart rate on presentation mildly elevated at 117. Per cardiology patient not currently on anticoagulation due to history of GI bleed Underlying history of hypertension Underlying history of hypothyroidism Underlying history of hyperlipidemia Underlying history of gout Underlying history of chronic kidney disease Underlying history of depression with anxiety disorder Cardiology, pulmonary and GI services following 1 unit PRBCs ordered Continue IV Lasix 2-D echo ordered EGD and colonoscopy today
--- NOTE | 2020-10-31 10:36 | P.PN ---
Subjective Progress Note Date: 10/31/20 Gisela Harman is an 85-year-old female who presented to [facility] with a chief complaint of worsening shortness of breath and generalized weakness. Patient stated that her symptoms started month ago however she was feeling much worse in the last few days. Otherwise she denies any complaints there is no fever or chills no headache or dizziness no chest pain no cough no nausea or vomiting no abdominal pain no diarrhea no blood in the stools no burning with urination no frequency or urgency and no hematuria. There is no weakness or numbness in any of the extremities no change in her vision speech or gait. Patient has a known history of persistent atrial fibrillation, history of hypertension, history of hyperlipidemia, history of hypothyroidism, history of gout, history of chronic diastolic congestive heart failure, history of chronic kidney disease stage III with history of cardiorenal syndrome, and history of chronic anemia. Her last admission to the hospital was in February 2019. She was evaluated in the emergency room vital examination on presentation revealed a temperature of 97.6 heart rate 117 respiration 20 blood pressure 100/71 pulse ox 86% on room air, laboratory data revealed a white blood count of 9.0 hemoglobin 7.4 platelet count 290 sodium 136 BUN 57 and creatinine 1.67 troponin level was 0.071 chest x-ray revealed evidence of mild congestive heart failure and right pleural effusion and right basilar atelectasis , patient was admitted to telemetry floor cardiology consultation and pulmonary consultation were requested. Patient is very hard of hearing, history and review of symptoms mostly provided by her son who was at the bedside at the time of my exam, On 10/29/2020 patient is alert resting comfortably in bed. Patient is extremely hard of hearing. 2-D echo is in process. Patient remains on IV Lasix. Hemoglobin 6.9 1 unit PRBCs have been ordered. GI services have been consulted for anemia. Pulmonary and cardiology services also following. At this time patient denies any chest pain. Patient denies nausea vomiting or diarrhea. P atient denies any urinary burning or frequency. On 10/30/2020 patient alert and oriented resting in bed. Plans for EGD and colonoscopy today per GI services status post transfusion of 1 unit of PRBCs. Hemoglobin 8.6. Pulmonary, cardiology and GI service is currently following. At this time patient denies chest pain or shortness breath. Patient denies nausea vomiting or diarrhea. Patient denies urinary burning or frequency On 10/31/2020 patient is alert and oriented and status post EGD and colonoscopy showing nonbleeding ulcers noted in the gastrohepatic antrum and duodenum without high risk stigmata for bleeding. GI recommendation continue Protonix twice daily upon discharge. Hemoglobin today 8.4. Patient has been transitioned to oral Lasix per cardiology services. At this time patient denies chest pain or shortness of breath. Patient denies nausea vomiting or diarrhea. Patient denies any urinary burning or frequency Objective - Vital Signs Vital signs: Vital Signs Temp 98.1 F 10/31/20 09:29 Pulse 111 H 10/31/20 09:29 Resp 18 10/31/20 09:29 BP 101/67 10/31/20 09:29 Pulse Ox 96 10/31/20 09:29 Intake & Output 10/30/20 10/31/20 10/31/20 18:59 06:59 18:59 Intake Total 300 10 128 Output Total 150 Balance 300 -140 128 Weight 77.8 kg Intake: IV 300 10 10 Invasive Line 2 10 Invasive Line 3 10 Oral 0 118 Output: Urine 150 Other: Voiding Method Bedside Commode # Voids 1 # Bowel Movements 3 - Exam In general patient is alert and oriented x 3 in no distress HEENT head normocephalic and atraumatic Neck is supple no JVD no goiter no lymphadenopathy no carotid bruit Chest examination is clear to auscultation no crackles no wheezing Cardiac exam reveals regular heart sounds S1 and S2 no gallops no murmurs Abdomen is soft nontender no organomegaly with normal bowel sounds Extremity exam reveals no edema no cyanosis or clubbing Neurological examination reveals no gross focal deficits - Labs CBC & Chem 7: 10/31/20 07:48 10/31/20 07:48 Labs: Abnormal Lab Results - Last 24 Hours (Table) 10/30/20 10/30/20 10/31/20 Range/Units 09:19 09:19 07:48 RBC 3.25 L 2.98 L (3.80-5.40) m/uL Hgb 8.6 L D 8.4 L (11.4-16.0) gm/dL Hct 29.9 L 27.3 L (34.0-46.0) % MCHC 28.7 L 30.6 L (31.0-37.0) g/dL RDW 19.1 H 18.9 H (11.5-15.5) % Potassium 3.3 L (3.5-5.1) mmol/L Chloride 95 L (98-107) mmol/L Carbon Dioxide 33 H (22-30) mmol/L BUN 51 H (7-17) mg/dL Creatinine 1.62 H (0.52-1.04) mg/dL Total Protein 6.0 L (6.3-8.2) g/dL Albumin (3.5-5.0) g/dL 10/31/20 Range/Units 07:48 RBC (3.80-5.40) m/uL Hgb (11.4-16.0) gm/dL Hct (34.0-46.0) % MCHC (31.0-37.0) g/dL RDW (11.5-15.5) % Potassium (3.5-5.1) mmol/L Chloride 94 L (98-107) mmol/L Carbon Dioxide 37 H (22-30) mmol/L BUN 48 H (7-17) mg/dL Creatinine 1.89 H (0.52-1.04) mg/dL Total Protein 5.9 L (6.3-8.2) g/dL Albumin 3.4 L (3.5-5.0) g/dL Assessment and Plan Plan: Acute on chronic diastolic congestive heart failure. cardiology services following. Patient transitioned to oral Lasix Right pleural effusion and right basilar atelectasis Elevated troponin level, will check serial EKGs and cardiac enzymes Significant anemia. Hemoglobin 6.9 requiring 1 unit of PRBCs. Status post EGD and colonoscopy showing nonbleeding ulcers noted in the gastric antrum and duodenum without high risk stigmata for bleeding. Moderate pandiverticulosis. GI recommendation Protonix twice daily upon discharge Underlying history of chronic persistent atrial fibrillation heart rate on presentation mildly elevated at 117. Per cardiology patient not currently on anticoagulation due to history of GI bleed Underlying history of hypertension Underlying history of hypothyroidism Underlying history of hyperlipidemia Underlying history of gout Underlying history of chronic kidney disease Underlying history of depression with anxiety disorder Cardiology, pulmonary and GI services following
--- NOTE | 2020-10-31 12:55 | P.PN ---
Subjective Progress Note Date: 10/31/20 HISTORY OF PRESENT ILLNESS: This is a 85-year-old female with a past medical history significant for chronic atrial fibrillation not on anticoagulation secondary to GI bleed, COPD with home oxygen use, coronary artery disease with previous stenting and CABG 4 in 1993, hypertension, hyperlipidemia, and chronic kidney disease. Patient follows in the office with Dr. Parada but was last seen in the office in June 2019. We have been asked to see the patient in consultation for CHF. Patient examined at the bedside. Patient is somewhat of a poor historian. There is no family at the bedside. Patient states her son brought her to the hospital because she has been tired lately and has been going back to sleep after eating breakfast. Patient does report feeling dizzy and lightheaded when she gets up too quickly from the bed or a chair. She denies passing out. Patient does report mild shortness of breath recently. She denies chest pain or pressure. The patient was found to be in congestive heart failure upon presentation to the emergency room and was started on IV Lasix. Patient was also found to be anemic with a hemoglobin of 6.9. She is scheduled for EGD and colonoscopy tomorrow with GI. Telemetry reveals atrial fibrillation with mildly uncontrolled ventricular rate Chest xray mild congestive heart failure. Right pleural effusion and right basilar atelectasis increased compared to old exam. Laboratory data: WBC 7.7. Hemoglobin 6.9. Platelet count 288. Sodium 137. Potassium 3.8. BUN 57. Creatinine 1.72. Troponin 0.071. 0.079. 0.076. Current home cardiac medications include Zaroxolyn 2.5 mg on Tuesday, metoprolol titrate 25 mg twice a day, Imdur 30 mg daily, Lasix 60 mg in the morning and 40 mg in the afternoon Echocardiogram obtained revealed ejection fraction 45-50%, basal inferior and inferoseptal LV wall hypokinesis, moderate to severe mitral regurgitation, moderate tricuspid regurgitation, mild pulmonary hypertension Cardiac catheterization history: 2012 revealing new stenosis in distal vein graft to major diagonal branch of LAD 80-90%, distal left main occlusion, totally occluded RCA, patent LEVIN, and patent SVG to OM 10/30/2020 Patient examined this morning the bedside. Patient denies chest pain or press ure. She denies shortness of breath. Patient received RBC transfusion yesterday. Hemoglobin 8.6 today. She is scheduled for endoscopic evaluation today per GI service. Patient remains in atrial fibrillation. Heart rate in the 110s. 10/31/2020 Patient examined this morning. Patient is resting comfortably in bed. Patient has had no complaints of chest pain or shortness of breath. She has been transitioned over to oral diuretics. Vital signs are stable. PHYSICAL EXAM: VITAL SIGNS: Reviewed. GENERAL: Well-developed in no acute distress. HEENT: Head is normocephalic. Pupils are equal, round. Sclerae anicteric. Mucous membranes of the mouth are moist. Neck supple. No JVD or thyromegaly LUNGS: Respirations even and unlabored. Lungs diminished bilaterally. HEART: Irregular rate and rhythm. S1 and S2 heard. EXTREMITIES: Normal range of motion. No clubbing or cyanosis. Peripheral pulses intact. No lower extremity edema ASSESSMENT: Acute exacerbation of diastolic heart failure, ejection fraction 45-50% Acute anemia Chronic persistent atrial fibrillation, not on anticoagulation secondary to history of GI bleeding Coronary artery disease with previous stenting and CABG 1993 Chronic kidney disease Abnormal troponins, not suggestive of acute coronary syndrome, may be secondary to chronic kidney disease and/or demand ischemia secondary to anemia Hypertension Chronic hypoxic respiratory failure, on home oxygen Former nicotine dependence PLAN: Patient is not on anticoagulation due to history of GI bleeding Continue current cardiac medications Patient is stable from a cardiac standpoint We will sign off. Please reconsult if needed. Nurse practitioner note has been reviewed by physician. Signing provider agrees with the documented findings, assessment, and plan of care. Objective - Vital Signs Vital signs: Vital Signs Temp 98.1 F 10/31/20 09:29 Pulse 91 10/31/20 11:33 Resp 18 10/31/20 11:33 BP 101/67 10/31/20 09:29 Pulse Ox 97 10/31/20 11:33 Intake & Output 10/30/20 10/31/20 10/31/20 18:59 06:59 18:59 Intake Total 300 10 128 Output Total 150 Balance 300 -140 128 Weight 77.8 kg Intake: IV 300 10 10 Invasive Line 2 10 Invasive Line 3 10 Oral 0 118 Output: Urine 150 Other: Voiding Method Bedside Commode # Voids 1 # Bowel Movements 3 - Labs CBC & Chem 7: 10/31/20 07:48 10/31/20 07:48 Labs: Abnormal Lab Results - Last 24 Hours (Table) 10/31/20 10/31/20 Range/Units 07:48 07:48 RBC 2.98 L (3.80-5.40) m/uL Hgb 8.4 L (11.4-16.0) gm/dL Hct 27.3 L (34.0-46.0) % MCHC 30.6 L (31.0-37.0) g/dL RDW 18.9 H (11.5-15.5) % Chloride 94 L (98-107) mmol/L Carbon Dioxide 37 H (22-30) mmol/L BUN 48 H (7-17) mg/dL Creatinine 1.89 H (0.52-1.04) mg/dL Total Protein 5.9 L (6.3-8.2) g/dL Albumin 3.4 L (3.5-5.0) g/dL
--- NOTE | 2020-10-31 16:08 | P.PN ---
Subjective Progress Note Date: 10/31/20 Principal diagnosis: Anemia she was seen and examined lying in bed. She denies any abdominal pain, nausea, or vomiting. She underwent an EGD yesterday showing nonbleeding ulcers in the gastric antrum and duodenum without high risk stigmata for bleeding. Mild gastritis. Biopsies taken. Colonoscopy showed moderate pandiverticulosis, 2 diminutive polyps, and internal hemorrhoids. Hemoglobin stable at 8.4. No further signs of GI bleed. Objective - Vital Signs Vital signs: Vital Signs Temp 98.1 F 10/31/20 09:29 Pulse 111 H 10/31/20 09:29 Resp 18 10/31/20 09:29 BP 101/67 10/31/20 09:29 Pulse Ox 96 10/31/20 09:29 Intake & Output 10/30/20 10/31/20 10/31/20 18:59 06:59 18:59 Intake Total 300 10 128 Output Total 150 Balance 300 -140 128 Weight 77.8 kg Intake: IV 300 10 10 Invasive Line 2 10 Invasive Line 3 10 Oral 0 118 Output: Urine 150 Other: Voiding Method Bedside Commode # Voids 1 # Bowel Movements 3 - Exam General appearance: The patient is alert, oriented, appears in no acute distress. HET: Head is normocephalic and atraumatic. Conjunctiva pink. Sclera anicteric. Neck: Supple without lymphadenopathy. Abdomen: Soft, nontender, nondistended with bowel sounds. No guarding or rigidity. Extremities: Normal skin color and turgor. No pedal edema Skin: No rashes, no jaundice Neurological: No focal deficits. Alert and oriented 3. - Labs CBC & Chem 7: 10/31/20 07:48 10/31/20 07:48 Labs: Abnormal Lab Results - Last 24 Hours (Table) 10/30/20 10/30/20 10/31/20 Range/Units 09:19 09:19 07:48 RBC 3.25 L 2.98 L (3.80-5.40) m/uL Hgb 8.6 L D 8.4 L (11.4-16.0) gm/dL Hct 29.9 L 27.3 L (34.0-46.0) % MCHC 28.7 L 30.6 L (31.0-37.0) g/dL RDW 19.1 H 18.9 H (11.5-15.5) % Potassium 3.3 L (3.5-5.1) mmol/L Chloride 95 L (98-107) mmol/L Carbon Dioxide 33 H (22-30) mmol/L BUN 51 H (7-17) mg/dL Creatinine 1.62 H (0.52-1.04) mg/dL Total Protein 6.0 L (6.3-8.2) g/dL Albumin (3.5-5.0) g/dL 10/31/20 Range/Units 07:48 RBC (3.80-5.40) m/uL Hgb (11.4-16.0) gm/dL Hct (34.0-46.0) % MCHC (31.0-37.0) g/dL RDW (11.5-15.5) % Potassium (3.5-5.1) mmol/L Chloride 94 L (98-107) mmol/L Carbon Dioxide 37 H (22-30) mmol/L BUN 48 H (7-17) mg/dL Creatinine 1.89 H (0.52-1.04) mg/dL Total Protein 5.9 L (6.3-8.2) g/dL Albumin 3.4 L (3.5-5.0) g/dL Assessment and Plan (1) Melena Narrative/Plan: 85-year-old female who was brought to the emergency department by EMS for weakness, fatigue, and shortness of breath. Patient reportedly has had black stools off and on for the last several months. She has full comorbidities including atrial fibrillation for which she states she is not on any anticoagulation. She does however take Aleve frequently for joint pain. She denies any nausea, vomiting, or abdominal pain. She denies any rectal bleeding, hematemesis, or coffee-ground emesis. She denies any previous history of peptic ulcer disease, GI bleed, her previous EGD or colonoscopy. Possible etiologies include peptic ulcer disease, gastritis, esophagitis, AVM, neoplasm or other etiologies need to be considered. Patient has had a remote colonoscopy possibly, also need to consider possibility of a lower GI source of bleeding so we'll proceed with EGD and colonoscopy. patient underwent EGD and colonoscopy. EGD showed nonbleeding ulcers in the gastric antrum and duodenum without high risk stigmata for bleeding. Mild gastritis. Colonoscopy showed moderate pandiverticulosis, 2 diminutive polyps which were removed, and internal hemorrhoids. Current Visit: Yes Status: Acute Code(s): K92.1 - MELENA SNOMED Code(s): 8050584 (2) Anemia Current Visit: Yes Status: Acute Code(s): D64.9 - ANEMIA, UNSPECIFIED SNOMED Code(s): 093306151 (3) Chronic a-fib Current Visit: Yes Status: Acute Code(s): I48.2 - CHRONIC ATRIAL F IBRILLATION * DO NOT USE * SNOMED Code(s): 697893223 (4) Elevated troponin Narrative/Plan: Cardiology on consult, state patient is cleared to proceed with EGD and colonoscopy. Current Visit: Yes Status: Acute Code(s): R77.8 - OTHER SPECIFIED ABNORMAL ITIES OF PLASMA PROTEINS SNOMED Code(s): 054825896 Plan: 1. Symptomatic and supportive care 2. Diet as tolerated 3. Daily CBC, transfuse for hemoglobin less than 7 4. Anemia panel orderedand reviewed 5. IV iron 3 doses ordered 6. Patient is status post EGD/colonoscopy 7. Recommend follow up for biopsy results Thank you for allowing us to participate in the care of the patient, the GI service will sign off, gastroenterology will not be available at the hospital this weekend and if further evaluation by gastroenterology is required the patient will need transfer as per the primary team's discretion. Dr. Pritchett I agree with the dictator's note, documented as a scribe by Alida Ng.
[2020-10-31] MEDS: FUROSEMIDE 40 MG TAB PO SCH (17:16)
[2020-10-31] MEDS: GABAPENTIN 300 MG CAP PO SCH (20:50)
[2020-10-31] MEDS: MONTELUKAST 10 MG TAB PO SCH (20:50)
[2020-11-01] MEDS: PANTOPRAZOLE 40 MG TABLET PO SCH (07:10)
[2020-11-01 08:47] LABS: Anisocytosis Slight; Basophils # (A) 0.1 k/uL (0-0.2); Basophils % (A) 1 %; Eosinophils # (A) 0.4 k/uL (0-0.7); Eosinophils % (A) 5 %; HGB 8.6 gm/dL (11.4-16.0); Hypochromasia Marked; Lymphocytes # (A) 1.1 k/uL (1.0-4.8); Lymphocytes % (A) 16 %; MCH 27.6 pg (25.0-35.0); MCHC 29.9 g/dL (31.0-37.0); MCV 92.6 fL (80.0-100.0); Mean Platelet Volume 7.4; Monocytes # (A) 0.2 k/uL (0-1.0); Monocytes % (A) 3 %; Neutrophils # (A) 5.2 k/uL (1.3-7.7); Neutrophils % (A) 74 %; Platelet Count 294 k/uL (150-450); RBC 3.13 m/uL (3.80-5.40); RDW 18.5 % (11.5-15.5); WBC 7.1 k/uL (3.8-10.6)
[2020-11-01 08:55] LABS: Albumin 3.5 g/dL (3.5-5.0); Calcium 9.3 mg/dL (8.4-10.2); Potassium 3.8 mmol/L (3.5-5.1); Total Bilirubin 0.4 mg/dL (0.2-1.3)
[2020-11-01] MEDS: ESCITALOPRAM 10 MG TAB PO SCH (09:52)
[2020-11-01] MEDS: FUROSEMIDE 20 MG TAB PO SCH (09:52)
[2020-11-01] MEDS: POTASSIUM CHLORIDE ER 20 MEQ TAB.ER PO SCH ×2 (09:52→20:39)
[2020-11-01] MEDS: ISOSORBIDE MONONITRATE ER 30 MG TAB.ER.24H PO SCH (09:52)
[2020-11-01] MEDS: allopurinoL 300 MG TAB PO SCH (09:52)
[2020-11-01] MEDS: METOPROLOL TARTRATE 50 MG TAB PO SCH ×2 (09:52→20:39)
[2020-11-01] MEDS: SODIUM FERRIC GLUCONAT-SUCROSE 125 MG in SODIUM CHLORIDE 0.9% 100 ML IVPB SCH (09:53)
--- NOTE | 2020-11-01 14:12 | P.PN ---
Subjective Progress Note Date: 11/01/20 Gisela Harman is an 85-year-old female who presented to [facility] with a chief complaint of worsening shortness of breath and generalized weakness. Patient stated that her symptoms started month ago however she was feeling much worse in the last few days. Otherwise she denies any complaints there is no fever or chills no headache or dizziness no chest pain no cough no nausea or vomiting no abdominal pain no diarrhea no blood in the stools no burning with urination no frequency or urgency and no hematuria. There is no weakness or numbness in any of the extremities no change in her vision speech or gait. Patient has a known history of persistent atrial fibrillation, history of hypertension, history of hyperlipidemia, history of hypothyroidism, history of gout, history of chronic diastolic congestive heart failure, history of chronic kidney disease stage III with history of cardiorenal syndrome, and history of chronic anemia. Her last admission to the hospital was in February 2019. She was evaluated in the emergency room vital examination on presentation revealed a temperature of 97.6 heart rate 117 respiration 20 blood pressure 100/71 pulse ox 86% on room air, laboratory data revealed a white blood count of 9.0 hemoglobin 7.4 platelet count 290 sodium 136 BUN 57 and creatinine 1.67 troponin level was 0.071 chest x-ray revealed evidence of mild congestive heart failure and right pleural effusion and right basilar atelectasis , patient was admitted to telemetry floor cardiology consultation and pulmonary consultation were requested. Patient is very hard of hearing, history and review of symptoms mostly provided by her son who was at the bedside at the time of my exam, On 10/29/2020 patient is alert resting comfortably in bed. Patient is extremely hard of hearing. 2-D echo is in process. Patient remains on IV Lasix. Hemoglobin 6.9 1 unit PRBCs have been ordered. GI services have been consulted for anemia. Pulmonary and cardiology services also following. At this time patient denies any chest pain. Patient denies nausea vomiting or diarrhea. P atient denies any urinary burning or frequency. On 10/30/2020 patient alert and oriented resting in bed. Plans for EGD and colonoscopy today per GI services status post transfusion of 1 unit of PRBCs. Hemoglobin 8.6. Pulmonary, cardiology and GI service is currently following. At this time patient denies chest pain or shortness breath. Patient denies nausea vomiting or diarrhea. Patient denies urinary burning or frequency On 10/31/2020 patient is alert and oriented and status post EGD and colonoscopy showing nonbleeding ulcers noted in the gastrohepatic antrum and duodenum without high risk stigmata for bleeding. GI recommendation continue Protonix twice daily upon discharge. Hemoglobin today 8.4. Patient has been transitioned to oral Lasix per cardiology services. At this time patient denies chest pain or shortness of breath. Patient denies nausea vomiting or diarrhea. Patient denies any urinary burning or frequency On 11/01/2020 Patient was seen and examined on the medical floor, she is alert and oriented x 3 in no distress, she is complaining of weakness and fatigue otherwise she denies any complaints there is no fever or chills no headache or dizziness no chest pain no shortness of breath no palpitation no cough no nausea or vomiting no abdominal pain no diarrhea no blood in the stools no burning with urination no frequency or urgency and no hematuria, there is no weakness or numbness in any of the extremities no change in vision speech or gait. Blood pr essure was significantly low today Lasix and metoprolol were held will continue to monitor will recheck labs and chest x-ray in a.m. Objective - Vital Signs Vital signs: Vital Signs Temp 97.8 F 11/01/20 13:10 Pulse 101 H 11/01/20 13:10 Resp 18 11/01/20 13:10 BP 94/60 11/01/20 13:10 Pulse Ox 99 11/01/20 13:10 Intake & Output 10/31/20 11/01/20 11/01/20 18:59 06:59 18:59 Intake Total 368 240 Output Total 200 Balance 368 -200 240 Weight 80.1 kg Intake: IV 10 Invasive Line 3 10 Oral 358 240 Output: Urine 200 Other: Voiding Method Bedside Commode Bedside Commode # Voids 1 - Exam In general patient is alert and oriented x 3 in no distress HEENT head normocephalic and atraumatic Neck is supple no JVD no goiter no lymphadenopathy no carotid bruit Chest examination is clear to auscultation no crackles no wheezing Cardiac exam reveals regular heart sounds S1 and S2 no gallops no murmurs Abdomen is soft nontender no organomegaly with normal bowel sounds Extremity exam reveals no edema no cyanosis or clubbing Neurological examination reveals no gross focal deficits - Labs CBC & Chem 7: 11/01/20 08:02 11/01/20 08:02 Labs: Abnormal Lab Results - Last 24 Hours (Table) 11/01/20 11/01/20 Range/Units 08:02 08:02 RBC 3.13 L (3.80-5.40) m/uL Hgb 8.6 L (11.4-16.0) gm/dL Hct 29.0 L (34.0-46.0) % MCHC 29.9 L (31.0-37.0) g/dL RDW 18.5 H (11.5-15.5) % Chloride 95 L (98-107) mmol/L Carbon Dioxide 38 H (22-30) mmol/L BUN 51 H (7-17) mg/dL Creatinine 2.16 H (0.52-1.04) mg/dL Glucose 111 H (74-99) mg/dL Total Protein 6.0 L (6.3-8.2) g/dL Assessment and Plan Plan: Acute on chronic diastolic congestive heart failure. cardiology services following. Patient transitioned to oral Lasix Right pleural effusion and right basilar atelectasis Elevated troponin level, will check serial EKGs and cardiac enzymes Significant anemia. Hemoglobin 6.9 requiring 1 unit of PRBCs. Status post EGD and colonoscopy showing nonbleeding ulcers noted in the gastric antrum and duodenum without high risk stigmata for bleeding. Moderate pandiverticulosis. GI recommendation Protonix twice daily upon discharge Underlying history of chronic persistent atrial fibrillation heart rate on presentation mildly elevated at 117. Per cardiology patient not currently on anticoagulation due to history of GI bleed Underlying history of hypertension Underlying history of hypothyroidism Underlying history of hyperlipidemia Underlying history of gout Underlying history of chronic kidney disease Underlying history of depression with anxiety disorder Cardiology, pulmonary and GI services following
[2020-11-01] MEDS: GABAPENTIN 300 MG CAP PO SCH (20:39)
[2020-11-01] MEDS: MONTELUKAST 10 MG TAB PO SCH (20:39)
[2020-11-02] MEDS: LACTATED RINGERS 1,000 ML IV SCH ×2 (03:01→20:06)
[2020-11-02] MEDS: PANTOPRAZOLE 40 MG TABLET PO SCH (06:31)
--- NOTE | 2020-11-02 08:33 | XR ---
EXAMINATION TYPE: XR chest 2V DATE OF EXAM: 11/02/2020 COMPARISON: 10/28/2020 HISTORY: 85-year-old female shortness of breath TECHNIQUE: PA and lateral views FINDINGS: Median sternotomy wires are present. Post-CABG clips in the mediastinum. Right heart margin obscured by adjacent pleural parenchymal opacity. Suspect cardiomegaly. Diffuse interstitial changes have incr eased slightly. Moderate right effusion has increased slightly as well. IMPRESSION: 1. Correlate for CHF with pulmonary vascular congestion, slightly worsened in the interval. 2. Continued moderate right pleural effusion with adjacent atelectasis and/or consolidation may be sl ightly increased.
--- NOTE | 2020-11-02 09:24 | P.PN ---
Subjective Progress Note Date: 11/02/20 HISTORY OF PRESENT ILLNESS: This is a 85-year-old female with a past medical history significant for chronic atrial fibrillation not on anticoagulation secondary to GI bleed, COPD with home oxygen use, coronary artery disease with previous stenting and CABG 4 in 1993, hypertension, hyperlipidemia, and chronic kidney disease. Patient follows in the office with Dr. Parada but was last seen in the office in June 2019. We have been asked to see the patient in consultation for CHF. Patient examined at the bedside. Patient is somewhat of a poor historian. There is no family at the bedside. Patient states her son brought her to the hospital because she has been tired lately and has been going back to sleep after eating breakfast. Patient does report feeling dizzy and lightheaded when she gets up too quickly from the bed or a chair. She denies passing out. Patient does report mild shortness of breath recently. She denies chest pain or pressure. The patient was found to be in congestive heart failure upon presentation to the emergency room and was started on IV Lasix. Patient was also found to be anemic with a hemoglobin of 6.9. She is scheduled for EGD and colonoscopy tomorrow with GI. Telemetry reveals atrial fibrillation with mildly uncontrolled ventricular rate Chest xray mild congestive heart failure. Right pleural effusion and right basilar atelectasis increased compared to old exam. Laboratory data: WBC 7.7. Hemoglobin 6.9. Platelet count 288. Sodium 137. Potassium 3.8. BUN 57. Creatinine 1.72. Troponin 0.071. 0.079. 0.076. Current home cardiac medications include Zaroxolyn 2.5 mg on Tuesday, metoprolol titrate 25 mg twice a day, Imdur 30 mg daily, Lasix 60 mg in the morning and 40 mg in the afternoon Echocardiogram obtained revealed ejection fraction 45-50%, basal inferior and inferoseptal LV wall hypokinesis, moderate to severe mitral regurgitation, moderate tricuspid regurgitation, mild pulmonary hypertension Cardiac catheterization history: 2012 revealing new stenosis in distal vein graft to major diagonal branch of LAD 80-90%, distal left main occlusion, totally occluded RCA, patent LEVIN, and patent SVG to OM 10/30/2020 Patient examined this morning the bedside. Patient denies chest pain or press ure. She denies shortness of breath. Patient received RBC transfusion yesterday. Hemoglobin 8.6 today. She is scheduled for endoscopic evaluation today per GI service. Patient remains in atrial fibrillation. Heart rate in the 110s. 10/31/2020 Patient examined this morning. Patient is resting comfortably in bed. Patient has had no complaints of chest pain or shortness of breath. She has been transitioned over to oral diuretics. Vital signs are stable. 11/02/2020 Cardiology was reconsulted to see patient due to hypotension. Patients blood pressures yesterday with in the 80s. Her lasix was held yesterday along with 1 dose of her metoprolol. Patient examined this morning at the bedside. She denies chest pain or pressure. Denies shortness of breath. Denies dizziness or lightheadedness. Telemetry reveals atrial fibrillation with a heart rate in the 90-100s. PHYSICAL EXAM: VITAL SIGNS: Reviewed. GENERAL: Well-developed in no acute distress. HEENT: Head is normocephalic. Pupils are equal, round. Sclerae anicteric. Mucous membranes of the mouth are moist. Neck supple. No JVD or thyromegaly LUNGS: Respirations even and unlabored. Lungs diminished bilaterally. HEART: Irregular rate and rhythm. S1 and S2 heard. EXTREMITIES: Normal range of motion. No clubbing or cyanosis. Peripheral pulses intact. No lower extremity edema ASSESSMENT: Acute exacerbation of diastolic heart failure, ejection fraction 45-50% Acute anemia Chronic persistent atrial fibrillation, not on anticoagulation secondary to history of GI bleeding Coronary artery disease with previous stenting and CABG 1993 Chronic kidney disease Abnormal troponins, not suggestive of acute coronary syndrome, may be secondary to chronic kidney disease and/or demand ischemia secondary to anemia Hypertension Chronic hypoxic respiratory failure, on home oxygen Former nicotine dependence PLAN: Patient is not on anticoagulation due to history of GI bleeding Patients blood pressure this morning has improved. Continue medications and continue to monitor blood pressure. Further recommendations pending patient's course Nurse practitioner note has been reviewed by physician. Signing provider agrees with the documented findings, assessment, and plan of care. Objective - Vital Signs Vital signs: Vital Signs Temp 98.6 F 11/02/20 08:14 Pulse 106 H 11/02/20 08:14 Resp 20 11/02/20 08:14 BP 97/52 11/02/20 08:14 Pulse Ox 98 11/02/20 08:14 Intake & Output 11/01/20 11/02/20 11/02/20 18:59 06:59 18:59 Intake Total 480 118 Output Total 500 Balance 480 -382 Weight 79.2 kg Intake: Oral 480 118 Output: Urine 500 Other: Voiding Method Bedside Commode Bedside Commode # Voids 3 1 - Labs CBC & Chem 7: 11/01/20 08:02 11/01/20 08:02
[2020-11-02] MEDS: ESCITALOPRAM 10 MG TAB PO SCH (09:34)
[2020-11-02] MEDS: FUROSEMIDE 20 MG TAB PO SCH (09:34)
[2020-11-02] MEDS: POTASSIUM CHLORIDE ER 20 MEQ TAB.ER PO SCH ×2 (09:34→20:06)
[2020-11-02] MEDS: allopurinoL 300 MG TAB PO SCH (09:34)
[2020-11-02] MEDS: ISOSORBIDE MONONITRATE ER 30 MG TAB.ER.24H PO SCH (09:34)
[2020-11-02] MEDS: METOPROLOL TARTRATE 50 MG TAB PO SCH ×2 (09:34→20:06)
--- NOTE | 2020-11-02 09:53 | P.PN ---
Subjective Progress Note Date: 11/02/20 Gisela Harman is an 85-year-old female who presented to [facility] with a chief complaint of worsening shortness of breath and generalized weakness. Patient stated that her symptoms started month ago however she was feeling much worse in the last few days. Otherwise she denies any complaints there is no fever or chills no headache or dizziness no chest pain no cough no nausea or vomiting no abdominal pain no diarrhea no blood in the stools no burning with urination no frequency or urgency and no hematuria. There is no weakness or numbness in any of the extremities no change in her vision speech or gait. Patient has a known history of persistent atrial fibrillation, history of hypertension, history of hyperlipidemia, history of hypothyroidism, history of gout, history of chronic diastolic congestive heart failure, history of chronic kidney disease stage III with history of cardiorenal syndrome, and history of chronic anemia. Her last admission to the hospital was in February 2019. She was evaluated in the emergency room vital examination on presentation revealed a temperature of 97.6 heart rate 117 respiration 20 blood pressure 100/71 pulse ox 86% on room air, laboratory data revealed a white blood count of 9.0 hemoglobin 7.4 platelet count 290 sodium 136 BUN 57 and creatinine 1.67 troponin level was 0.071 chest x-ray revealed evidence of mild congestive heart failure and right pleural effusion and right basilar atelectasis , patient was admitted to telemetry floor cardiology consultation and pulmonary consultation were requested. Patient is very hard of hearing, history and review of symptoms mostly provided by her son who was at the bedside at the time of my exam, On 10/29/2020 patient is alert resting comfortably in bed. Patient is extremely hard of hearing. 2-D echo is in process. Patient remains on IV Lasix. Hemoglobin 6.9 1 unit PRBCs have been ordered. GI services have been consulted for anemia. Pulmonary and cardiology services also following. At this time patient denies any chest pain. Patient denies nausea vomiting or diarrhea. P atient denies any urinary burning or frequency. On 10/30/2020 patient alert and oriented resting in bed. Plans for EGD and colonoscopy today per GI services status post transfusion of 1 unit of PRBCs. Hemoglobin 8.6. Pulmonary, cardiology and GI service is currently following. At this time patient denies chest pain or shortness breath. Patient denies nausea vomiting or diarrhea. Patient denies urinary burning or frequency On 10/31/2020 patient is alert and oriented and status post EGD and colonoscopy showing nonbleeding ulcers noted in the gastrohepatic antrum and duodenum without high risk stigmata for bleeding. GI recommendation continue Protonix twice daily upon discharge. Hemoglobin today 8.4. Patient has been transitioned to oral Lasix per cardiology services. At this time patient denies chest pain or shortness of breath. Patient denies nausea vomiting or diarrhea. Patient denies any urinary burning or frequency On 11/01/2020 Patient was seen and examined on the medical floor, she is alert and oriented x 3 in no distress, she is complaining of weakness and fatigue otherwise she denies any complaints there is no fever or chills no headache or dizziness no chest pain no shortness of breath no palpitation no cough no nausea or vomiting no abdominal pain no diarrhea no blood in the stools no burning with urination no frequency or urgency and no hematuria, there is no weakness or numbness in any of the extremities no change in vision speech or gait. Blood pr essure was significantly low today Lasix and metoprolol were held will continue to monitor will recheck labs and chest x-ray in a.m. On 11/02/2020 patient alert and oriented 3. Creatinine increasing to 2.16 and bun 51. Nephrology services will be consulted. Blood pressure does seem improved. Patient currently maintained on by mouth Lasix 60 mg. hgb 8.6. Cardiology services following. Repeat chest x-ray showing correlate for CHF with pulmonary vascular congestion slightly worsened in the interval continue moderate right pleural effusion with adjacent atelectasis or consolidation may b e slightly increased. At this time patient denies chest pain or shortness breath. Patient denies nausea vomiting or diarrhea. Patient denies any urinary burning or frequency Objective - Vital Signs Vital signs: Vital Signs Temp 98.6 F 11/02/20 08:14 Pulse 106 H 11/02/20 08:14 Resp 20 11/02/20 08:14 BP 97/52 11/02/20 08:14 Pulse Ox 98 11/02/20 08:14 Intake & Output 11/01/20 11/02/20 11/02/20 18:59 06:59 18:59 Intake Total 480 118 Output Total 500 Balance 480 -382 Weight 79.2 kg Intake: Oral 480 118 Output: Urine 500 Other: Voiding Method Bedside Commode Bedside Commode # Voids 3 1 - Exam In general patient is alert and oriented x 3 in no distress HEENT head normocephalic and atraumatic Neck is supple no JVD no goiter no lymphadenopathy no carotid bruit Chest examination is clear to auscultation no crackles no wheezing Cardiac exam reveals regular heart sounds S1 and S2 no gallops no murmurs Abdomen is soft nontender no organomegaly with normal bowel sounds Extremity exam reveals no edema no cyanosis or clubbing Neurological examination reveals no gross focal deficits - Labs CBC & Chem 7: 11/01/20 08:02 11/01/20 08:02 Assessment and Plan Plan: Acute on chronic diastolic congestive heart failure. cardiology services following. Patient transitioned to oral Lasix Right pleural effusion and right basilar atelectasis Elevated troponin level. Cardiology not suggestive of acute coronary syndrome may be secondary to chronic kidney disease and/or demand ischemia secondary to anemia Significant anemia. Hemoglobin 6.9 requiring 1 unit of PRBCs. Status post EGD and colonoscopy showing nonbleeding ulcers noted in the gastric antrum and duodenum without high risk stigmata for bleeding. Moderate pandiverticulosis. GI recommendation Protonix twice daily upon discharge Underlying history of chronic persistent atrial fibrillation heart rate on presentation mildly elevated at 117. Per cardiology patient not currently on anticoagulation due to history of GI bleed Underlying history of hypertension Underlying history of hypothyroidism Underlying history of hyperlipidemia Underlying history of gout Underlying history of chronic kidney disease Underlying history of depression with anxiety disorder Acute kidney injury. Nephrology services will be consulted. DVT prophylaxis SCDs. GI prophylaxis Protonix GI services cardiology and pulmonary services following Nephrology services consulted
--- NOTE | 2020-11-02 10:32 | P.NPCON ---
History of Present Illness - Reason for Consult acute renal failure, chronic renal failure - History of Present Illness Reason for consultation: Acute kidney injury on chronic kidney disease History of present illness: Patient is a 85-year-old female seen in consultation for acute kidney injury on chronic kidney disease. Patient has chronic kidney disease stage IV with baseline creatinine in the range of 1.5-2. Etiology is nephrosclerosis and cardiorenal syndrome. Urinalysis is benign. Creatinine was 1.67 this admission and is 2.16 today. Patient has history of systolic CHF with ejection fraction of 45-50%. Patient presented to the hospital with generalized weakness and exertional dyspnea. She denies chest pain. Denies vomiting or diarrhea. Has been voiding. No hematuria or dysuria. Hemoglobin was low as 6.9 on admission and she did receive a unit of blood. She underwent EGD and colonoscopy which revealed nonbleeding ulcers and diverticulosis. She is maintained on oral Lasix 60 mg once daily. Chest x-ray from this morning was suggestive of worsening CHF. Patient also has history of COPD. She is currently on 3 L nasal cannula. Feels tired and weak. Vital signs are stable. General: The patient appeared well nourished and normally developed. HEENT: Head exam is unremarkable. Neck is without jugular venous distension. LUNGS: Breath sounds decreased. HEART: Rate and Rhythm are regular. ABDOMEN: Soft, no distention. EXTREMITITES: Trace edema. Past Medical History Past Medical History: Atrial Fibrillation, Coronary Artery Disease (CAD), Chest Pain / Angina, Heart Failure, COPD, GERD/Reflux, Hyperlipidemia, Myocardial Infarction (AK), Osteoarthritis (OA), Pneumonia, Renal Disease Additional Past Medical History / Comment(s): Pt recently admitted to [facility] on 11/24/18 with dyspnea r/t CHF/cardiomyopathy and acute on chronic kidney disease. Other hx: Chronic Afib, neuropathy bilateral feet, gout bilateral feet, falls, occasional low back pain with bilateral sciatica with L side worse, hypothyroid, epistaxis with blood loss anemia, recent memory impairment Last Myocardial Infarction Date:: 2012 History of Any Multi-Drug Resistant Organisms: None Reported Past Surgical History: Appendectomy, Back Surgery, Cardiac Ablation, Cholecystectomy, Coronary Bypass/CABG, Heart Catheterization With Stent, Hysterectomy Additional Past Surgical History / Comment(s): LOW, 1993 CABG-4 vessels, nasal cauterization, colonoscopy with benign polypectomy, D&C, bilateral cataract removals, R breast benign bx, lumbar laminectomy. Past Anesthesia/Blood Transfusion Reactions: Previous Problems w/ Anesthesia Additional Past Anesthesia/Blood Transfusion Reaction / Comment(s): Pt received blood 02/07/12 without reaction after epistaxis. Date of Last Stent Placement:: 03/2013 Past Psychological History: Anxiety, Depression Additional Psychological History / Comment(s): Pt resides alone. She uses a walker to ambulate. She drives. She has home oxygen and a nebulizer. Smoking Status: Former smoker Past Alcohol Use History: Occasional Additional Past Alcohol Use History / Comment(s): Pt has a glass of wine each evening. She started smoking in 1956 and quit in 1986. Past Drug Use History: None Reported - Past Family History Mother Additional Family Medical History / Comment(s): Mother was a heavy drinker. She lived to be in her 80's Father Family Medical History: No Reported History Additional Family Medical History / Comment(s): Father lived to be in his 80's Medications and Allergies Home Medications Medication Instructions Recorded Confirmed Type Escitalopram [Lexapro] 10 mg PO DAILY 07/20/18 10/28/20 History allopurinoL [Zyloprim] 300 mg PO DAILY 07/20/18 10/28/20 History Montelukast [Singulair] 10 mg PO HS #30 tab 09/18/18 10/28/20 Rx Isosorbide Mononitrate [Isosorbide 30 mg PO DAILY 10/22/18 10/28/20 History Mononitrate ER] metOLazone [Zaroxolyn] 2.5 mg PO FR 10/22/18 10/28/20 History Metoprolol Tartrate [Lopressor] 25 mg PO BID #0 tab 03/07/19 10/28/20 Rx Calm Support Supplement 1 cap PO HS 10/28/20 10/28/20 History Calm Support Supplement 2 cap PO DAILY@1600 10/28/20 10/28/20 History Furosemide [Lasix] 40 mg PO DAILY@1400 10/28/20 10/28/20 History Furosemide [Lasix] 60 mg PO DAILY@0800 10/28/20 10/28/20 History Gabapentin [Neurontin] 300 mg PO HS 10/28/20 10/28/20 History Potassium Chloride ER [K-Dur 20] 20 meq PO BID 10/28/20 10/28/20 History Allergies Allergy/AdvReac Type Severity Reaction Status Date / Time Edalcjy-Zpg-Lwi Reductase AdvReac Unknown Verified 10/28/20 17:30 Inhibitor Physical Exam Vitals: Vital Signs Temp Pulse Resp BP Pulse Ox 11/02/20 08:14 98.6 F 106 H 20 97/52 98 11/02/20 04:00 98.2 F 55 L 18 101/67 96 11/02/20 02:00 62 18 11/02/20 00:00 97.7 F 60 17 104/59 98 11/01/20 20:00 98.0 F 95 18 92/52 96 11/01/20 17:14 98.3 F 100 18 94/60 99 11/01/20 14:00 18 11/01/20 13:10 97.8 F 101 H 18 94/60 99 Intake and Output 11/01/20 11/02/20 11/02/20 22:59 06:59 14:59 Intake Total 118 Output Total 200 300 Balance -82 -300 Intake: Oral 118 Output: Urine 200 300 Other: Voiding Method Bedside Commode Bedside Commode # Voids 1 1 Weight 79.2 kg Results - Lab Results Most recent lab results Calcium 9.3 mg/dL (8.4-10.2) 11/01/20 08:02 Magnesium 2.9 mg/dL (1.6-2.3) H 10/28/20 16:13 11/01/20 08:02 11/01/20 08:02 Assessment and Plan Plan: Assessment: 1. Acute kidney injury mostly prerenal secondary to cardiorenal syndrome. Creatinine 2.16 today. Urinalysis benign. 2. Chronic kidney disease stage IV with baseline creatinine in the range of 1.5-2 secondary to nephrosclerosis and cardiorenal syndrome. 3. Acute on chronic systolic CHF with ejection fraction of 45-50% with moderate to severe mitral regurgitation and moderate tricuspid regurgitation. 4. Volume overload. 5. Acute GI bleed status post EGD and colonoscopy which revealed nonbleeding ulcers and diverticulosis. Status post blood transfusion. Hemoglobin stable at 8.6 today. Plan: Maintain oral Lasix. I will give her a dose of Lasix 40 mg IV once today this afternoon. Check renal ultrasound. Avoid nephrotoxins. Low-salt diet. Continue to monitor renal function and urine output. Add Aranesp. Thank you for the consultation. I will continue to follow the patient with you during her hospital stay.
[2020-11-02] MEDS: DARBEPOETIN ALFA 40 MCG/0.4 ML SYRINGE SQ SCH (12:08)
[2020-11-02] MEDS ORDERED: FUROSEMIDE 10 MG/ML 4 ML VIAL IV ONE (15:00)
[2020-11-02] MEDS: MONTELUKAST 10 MG TAB PO SCH (20:06)
[2020-11-02] MEDS: GABAPENTIN 300 MG CAP PO SCH (20:06)
[2020-11-03] MEDS: PANTOPRAZOLE 40 MG TABLET PO SCH (06:28)
[2020-11-03 08:14] LABS: Anisocytosis Slight; Basophils # (A) 0.1 k/uL (0-0.2); Basophils % (A) 1 %; Eosinophils # (A) 0.4 k/uL (0-0.7); Eosinophils % (A) 4 %; HCT 27.1 % (34.0-46.0); HGB 8.1 gm/dL (11.4-16.0); Hypochromasia Marked; Lymphocytes % (A) 12 %; MCH 28.1 pg (25.0-35.0); MCHC 29.8 g/dL (31.0-37.0); MCV 94.4 fL (80.0-100.0); Macrocytosis Slight; Mean Platelet Volume 7.2; Monocytes # (A) 0.4 k/uL (0-1.0); Monocytes % (A) 4 %; Neutrophils # (A) 6.5 k/uL (1.3-7.7); Neutrophils % (A) 78 %; Platelet Count 262 k/uL (150-450); RBC 2.87 m/uL (3.80-5.40); RDW 18.7 % (11.5-15.5); WBC 8.3 k/uL (3.8-10.6)
[2020-11-03 08:26] LABS: Albumin 3.2 g/dL (3.5-5.0); Calcium 8.9 mg/dL (8.4-10.2); Magnesium 2.3 mg/dL (1.6-2.3); Potassium 4.1 mmol/L (3.5-5.1); Total Bilirubin 0.3 mg/dL (0.2-1.3); Total Protein 5.7 g/dL (6.3-8.2)
[2020-11-03] MEDS: ISOSORBIDE MONONITRATE ER 30 MG TAB.ER.24H PO SCH (08:59)
[2020-11-03] MEDS: allopurinoL 300 MG TAB PO SCH (08:59)
[2020-11-03] MEDS: FUROSEMIDE 20 MG TAB PO SCH (08:59)
[2020-11-03] MEDS: METOPROLOL TARTRATE 50 MG TAB PO SCH ×2 (08:59→20:18)
[2020-11-03] MEDS: ESCITALOPRAM 10 MG TAB PO SCH (08:59)
[2020-11-03] MEDS: POTASSIUM CHLORIDE ER 20 MEQ TAB.ER PO SCH ×2 (08:59→20:18)
--- NOTE | 2020-11-03 13:40 | P.PN ---
Subjective This is a 85-year-old female with a past medical history significant for chronic atrial fibrillation not on anticoagulation secondary to GI bleed, COPD with home oxygen use, coronary artery disease with previous stenting and CABG 4 in 1993, hypertension, hyperlipidemia, and chronic kidney disease. Patient follows in the office with Dr. Parada but was last seen in the office in June 2019. We have been asked to see the patient in consultation for CHF. The patient was found to be in congestive heart failure upon presentation to the emergency room and was started on IV Lasix. Patient was also found to be anemic with a hemoglobin of 6.9. She is scheduled for EGD and colonoscopy tomorrow with GI. Echocardiogram 10/29/2020 obtained revealed ejection fraction 45-50%, basal inferior and inferoseptal LV wall hypokinesis, moderate to severe mitral regurgitation, moderate tricuspid regurgitation, mild pulmonary hypertension Cardiac catheterization history: 2012 revealing new stenosis in distal vein graft to major diagonal branch of LAD 80-90%, distal left main occlusion, totally occluded RCA, patent LEVIN, and patent SVG to OM 11/02/2020 Cardiology was reconsulted to see patient due to hypotension. SBPs was in the 80s. Her lasix was held along with 1 dose of her metoprolol. Telemetry revealed atrial fibrillation with a heart rate in the 90-100s. 11/03/2020: Patient seen and examined at bedside, lying flat on her side. No acute distress. She denies shortness of breath, chest pain, palpitations. She states she feels a little "shaky". She is hemodynamicall stable. BP is 103/61 HR 90-100. Telemetry reveals atrial fibrillation with mildly uncontrolled ventricular rate. Laboratory data: WBC 8.3. Hemoglobin 8.1. Platelet count 262. Sodium 138. Potassium 4.1. BUN 50. Creatinine 2.06. Troponin 0.071. 0.079. 0.076. Currently being maintained on Lasix 60 mg daily, Imdur 30 mg daily, lactate Ringer's 20 mg, metolazone 2.5 mg, metoprolol titrate 50 mg twice a day, potassium chloride 20 mEq twice a day PHYSICAL EXAM: VITAL SIGNS: Reviewed. GENERAL: Well-developed in no acute distress. HEENT: Head is normocephalic. Pupils are equal, round. Sclerae anicteric. Mucous membranes of the mouth are moist. Neck supple. No JVD or thyromegaly LUNGS: Respirations even and unlabored. Lungs diminished bilaterally. HEART: Irregular rate and rhythm. S1 and S2 heard. EXTREMITIES: Normal range of motion. No clubbing or cyanosis. Peripheral pulses intact. No lower extremity edema ASSESSMENT: Acute exacerbation of diastolic heart failure, ejection fraction 45-50% Acute anemia Chronic persistent atrial fibrillation, not on anticoagulation secondary to history of GI bleeding Coronary artery disease with previous stenting and CABG 1993 Chronic kidney disease Abnormal troponins, not suggestive of acute coronary syndrome, may be secondary to chronic kidney disease and/or demand ischemia secondary to anemia Hypertension Chronic hypoxic respiratory failure, on home oxygen Former nicotine dependence PLAN: Patient is not on anticoagulation due to history of GI bleeding Patients blood pressure this morning has improved. Continue medications and continue to monitor blood pressure. Nephrology is consulted. Plan for Renal ultra sound We will sign off at this time. Please reach out with any further questions or concerns Patient should follow up with Dr. Parada outpatient Nurse practitioner note has been reviewed by physician. Signing provider agrees with the documented findings, assessment, and plan of care. Objective - Vital Signs Vital signs: Vital Signs Temp 97.1 F L 11/03/20 03:32 Pulse 93 11/03/20 12:00 Resp 16 11/03/20 12:00 BP 90/47 11/03/20 12:00 Pulse Ox 97 11/03/20 12:00 Intake & Output 11/02/20 11/03/20 11/03/20 18:59 06:59 18:59 Intake Total 480 240 120 Output Total 200 400 400 Balance 280 -160 -280 Weight 79 kg Intake: Oral 480 240 120 Output: Urine 200 400 400 Other: Voiding Method Bedside Commode Bedside Commode Bedside Commode # Voids 2 2 2 - Labs CBC & Chem 7: 11/03/20 07:16 11/03/20 07:16 Labs: Abnormal Lab Results - Last 24 Hours (Table) 11/03/20 11/03/20 Range/Units 07:16 07:16 RBC 2.87 L (3.80-5.40) m/uL Hgb 8.1 L (11.4-16.0) gm/dL Hct 27.1 L (34.0-46.0) % MCHC 29.8 L (31.0-37.0) g/dL RDW 18.7 H (11.5-15.5) % Carbon Dioxide 36 H (22-30) mmol/L BUN 50 H (7-17) mg/dL Creatinine 2.06 H (0.52-1.04) mg/dL Total Protein 5.7 L (6.3-8.2) g/dL Albumin 3.2 L (3.5-5.0) g/dL
--- NOTE | 2020-11-03 16:00 | PN ---
PROGRESS NOTE Patient is seen for followup for chronic kidney disease and acute kidney injury. The patient has history of CHF, ejection fraction 45% to 50%. She is currently being diuresed, maintained on oral Lasix, received IV Lasix yesterday. Overall, patient denies any significant complaints. EXAMINATION: This morning blood pressure was 103/67, heart rate 105 per minute. She is afebrile. Examination of the heart S1, S2. Examination of lungs, decreased breath sounds at bases. Abdomen is soft, nontender. Examination of lower extremities shows edema 1+ bilaterally. [employer] exam grossly intact. LABS: Show hemoglobin 8.1, sodium 138, potassium 4.1, BUN 50, creatinine 2.06. ASSESSMENT: 1. Acute kidney injury, mostly cardiorenal, renal function fairly stable. UA is benign. 2. Chronic kidney disease stage 4 with baseline creatinine 1.5-2 secondary to nephrosclerosis. 3. Acute on chronic systolic congestive heart failure. 4. Cardiomyopathy, ejection fraction 45% to 50% with moderate to severe mitral regurgitation and moderate tricuspid regurg. 5. Volume overload, improved. 6. Acute gastrointestinal bleed status post EGD and colonoscopy which revealed nonbleeding ulcers and diverticulosis. Status post packed RBC transfusion, hemoglobin is stable. PLAN: Continue with oral Lasix and Zaroxolyn. Check ultrasound of the kidneys. MMODL / IJN: [id number] /
--- NOTE | 2020-11-03 16:23 | US ---
EXAMINATION TYPE: US kidneys/renal and bladder DATE OF EXAM: 11/03/2020 COMPARISON: Renal ultrasound November 24, 2018 CLINICAL HISTORY: rf. Exam done portable. EXAM MEASUREMENTS: Right Kidney: 9.7 x 6.3 x 5.4 cm Left Kidney: 8.5 x 4.4 x 4.7 cm Difficult and limited study due to morbidly obese patient Right Kidney: partially obscured by overlying bowel gas, visualized portions appear wnl Left Kidney: 2.1cm exophytic hypoechoic area inferior indu Bladder: not fully distended, appears wnl as seen Exam suboptimal due to portable technique and patient's large body habitus. Suboptimal evaluation of bilateral kidneys. No obvious hydronephrosis seen bilaterally. Left kidney slightly better seen than right kidney with 2.1 cm hypoechoic to anechoic exophytic lesion lower pole level reflect debris-fill ed cyst, solid lesion not excluded. This was not clearly seen on prior study. Bladder appears within normal limits. IMPRESSION: Suboptimal study without obvious hydronephrosis seen bilaterally.
--- NOTE | 2020-11-03 19:44 | P.PN ---
Subjective Progress Note Date: 11/03/20 Gisela Harman is an 85-year-old female who presented to [facility] with a chief complaint of worsening shortness of breath and generalized weakness. Patient stated that her symptoms started month ago however she was feeling much worse in the last few days. Otherwise she denies any complaints there is no fever or chills no headache or dizziness no chest pain no cough no nausea or vomiting no abdominal pain no diarrhea no blood in the stools no burning with urination no frequency or urgency and no hematuria. There is no weakness or numbness in any of the extremities no change in her vision speech or gait. Patient has a known history of persistent atrial fibrillation, history of hypertension, history of hyperlipidemia, history of hypothyroidism, history of gout, history of chronic diastolic congestive heart failure, history of chronic kidney disease stage III with history of cardiorenal syndrome, and history of chronic anemia. Her last admission to the hospital was in February 2019. She was evaluated in the emergency room vital examination on presentation revealed a temperature of 97.6 heart rate 117 respiration 20 blood pressure 100/71 pulse ox 86% on room air, laboratory data revealed a white blood count of 9.0 hemoglobin 7.4 platelet count 290 sodium 136 BUN 57 and creatinine 1.67 troponin level was 0.071 chest x-ray revealed evidence of mild congestive heart failure and right pleural effusion and right basilar atelectasis , patient was admitted to telemetry floor cardiology consultation and pulmonary consultation were requested. Patient is very hard of hearing, history and review of symptoms mostly provided by her son who was at the bedside at the time of my exam, On 10/29/2020 patient is alert resting comfortably in bed. Patient is extremely hard of hearing. 2-D echo is in process. Patient remains on IV Lasix. Hemoglobin 6.9 1 unit PRBCs have been ordered. GI services have been consulted for anemia. Pulmonary and cardiology services also following. At this time patient denies any chest pain. Patient denies nausea vomiting or diarrhea. P atient denies any urinary burning or frequency. On 10/30/2020 patient alert and oriented resting in bed. Plans for EGD and colonoscopy today per GI services status post transfusion of 1 unit of PRBCs. Hemoglobin 8.6. Pulmonary, cardiology and GI service is currently following. At this time patient denies chest pain or shortness breath. Patient denies nausea vomiting or diarrhea. Patient denies urinary burning or frequency On 10/31/2020 patient is alert and oriented and status post EGD and colonoscopy showing nonbleeding ulcers noted in the gastrohepatic antrum and duodenum without high risk stigmata for bleeding. GI recommendation continue Protonix twice daily upon discharge. Hemoglobin today 8.4. Patient has been transitioned to oral Lasix per cardiology services. At this time patient denies chest pain or shortness of breath. Patient denies nausea vomiting or diarrhea. Patient denies any urinary burning or frequency On 11/01/2020 Patient was seen and examined on the medical floor, she is alert and oriented x 3 in no distress, she is complaining of weakness and fatigue otherwise she denies any complaints there is no fever or chills no headache or dizziness no chest pain no shortness of breath no palpitation no cough no nausea or vomiting no abdominal pain no diarrhea no blood in the stools no burning with urination no frequency or urgency and no hematuria, there is no weakness or numbness in any of the extremities no change in vision speech or gait. Blood pr essure was significantly low today Lasix and metoprolol were held will continue to monitor will recheck labs and chest x-ray in a.m. On 11/02/2020 patient alert and oriented 3. Creatinine increasing to 2.16 and bun 51. Nephrology services will be consulted. Blood pressure does seem improved. Patient currently maintained on by mouth Lasix 60 mg. hgb 8.6. Cardiology services following. Repeat chest x-ray showing correlate for CHF with pulmonary vascular congestion slightly worsened in the interval continue moderate right pleural effusion with adjacent atelectasis or consolidation may b e slightly increased. At this time patient denies chest pain or shortness breath. Patient denies nausea vomiting or diarrhea. Patient denies any urinary burning or frequency. On 11/03/2020 Patient was seen and examined on the medical floor, she is alert and oriented x 3 in no distress, she is still complaining of shortness of breath otherwise she denies any complaints there is no fever or chills no headache or dizziness no chest pain no shortness of breath no palpitation no cough no nausea or vomiting no abdominal pain no diarrhea no blood in the stools no burning with urination no frequency or urgency and no hematuria, hemoglobin is down to 8.1 BUN 50 creatinine 2.06 at this time patient is still in marginal condition without significant improvement since admission, will discuss was multiple specialists further treatment steps, will re-consult pulmonary for possible thoracentesis, will recheck in a.m. Objective - Vital Signs Vital signs: Vital Signs Temp 97.1 F L 11/03/20 03:32 Pulse 93 11/03/20 12:00 Resp 16 11/03/20 12:00 BP 90/47 11/03/20 12:00 Pulse Ox 97 11/03/20 12:00 Intake & Output 11/02/20 11/03/20 11/03/20 18:59 06:59 18:59 Intake Total 480 240 120 Output Total 200 400 400 Balance 280 -160 -280 Weight 79 kg Intake: Oral 480 240 120 Output: Urine 200 400 400 Other: Voiding Method Bedside Commode Bedside Commode Bedside Commode # Voids 2 2 2 - Exam In general patient is alert and oriented x 3 in no distress HEENT head normocephalic and atraumatic Neck is supple no JVD no goiter no lymphadenopathy no carotid bruit Chest examination is clear to auscultation no crackles no wheezing Cardiac exam reveals regular heart sounds S1 and S2 no gallops no murmurs Abdomen is soft nontender no organomegaly with normal bowel sounds Extremity exam reveals no edema no cyanosis or clubbing Neurological examination reveals no gross focal deficits - Labs CBC & Chem 7: 11/03/20 07:16 11/03/20 07:16 Labs: Abnormal Lab Results - Last 24 Hours (Table) 11/03/20 11/03/20 Range/Units 07:16 07:16 RBC 2.87 L (3.80-5.40) m/uL Hgb 8.1 L (11.4-16.0) gm/dL Hct 27.1 L (34.0-46.0) % MCHC 29.8 L (31.0-37.0) g/dL RDW 18.7 H (11.5-15.5) % Carbon Dioxide 36 H (22-30) mmol/L BUN 50 H (7-17) mg/dL Creatinine 2.06 H (0.52-1.04) mg/dL Total Protein 5.7 L (6.3-8.2) g/dL Albumin 3.2 L (3.5-5.0) g/dL Assessment and Plan Plan: Acute on chronic diastolic congestive heart failure. cardiology services following. Patient transitioned to oral Lasix Right pleural effusion and right basilar atelectasis Elevated troponin level. Cardiology not suggestive of acute coronary syndrome may be secondary to chronic kidney disease and/or demand ischemia secondary to anemia Significant anemia. Hemoglobin 6.9 requiring 1 unit of PRBCs. Status post EGD and colonoscopy showing nonbleeding ulcers noted in the gastric antrum and duodenum without high risk stigmata for bleeding. Moderate pandiverticulosis. GI recommendation Protonix twice daily upon discharge Underlying history of chronic persistent atrial fibrillation heart rate on presentation mildly elevated at 117. Per cardiology patient not currently on anticoagulation due to history of GI bleed Underlying history of hypertension Underlying history of hypothyroidism Underlying history of hyperlipidemia Underlying history of gout Underlying history of chronic kidney disease Underlying history of depression with anxiety disorder Acute kidney injury. Nephrology services will be consulted. DVT prophylaxis SCDs. GI prophylaxis Protonix GI services cardiology and pulmonary services following Nephrology services consulted
[2020-11-03] MEDS: LACTATED RINGERS 1,000 ML IV SCH (20:08)
[2020-11-03] MEDS: MONTELUKAST 10 MG TAB PO SCH (20:18)
[2020-11-03] MEDS: GABAPENTIN 300 MG CAP PO SCH (20:18)
[2020-11-04] MEDS: PANTOPRAZOLE 40 MG TABLET PO SCH (06:38)
[2020-11-04 07:13] LABS: Anisocytosis Slight; Basophils # (A) 0.1 k/uL (0-0.2); Basophils % (A) 1 %; Eosinophils # (A) 0.3 k/uL (0-0.7); Eosinophils % (A) 3 %; HCT 29.2 % (34.0-46.0); HGB 8.8 gm/dL (11.4-16.0); Hypochromasia Marked; Lymphocytes # (A) 1.1 k/uL (1.0-4.8); Lymphocytes % (A) 11 %; MCH 28.7 pg (25.0-35.0); MCV 95.6 fL (80.0-100.0); Macrocytosis Slight; Mean Platelet Volume 7.7; Monocytes # (A) 0.4 k/uL (0-1.0); Monocytes % (A) 4 %; Neutrophils # (A) 8.3 k/uL (1.3-7.7); Neutrophils % (A) 81 %; Platelet Count 259 k/uL (150-450); RBC 3.05 m/uL (3.80-5.40); RDW 18.6 % (11.5-15.5); WBC 10.2 k/uL (3.8-10.6)
[2020-11-04 07:35] LABS: Albumin 3.5 g/dL (3.5-5.0); Potassium 4.5 mmol/L (3.5-5.1); Total Protein 6.1 g/dL (6.3-8.2)
[2020-11-04 07:36] LABS: Calcium 9.4 mg/dL (8.4-10.2); Total Bilirubin 0.3 mg/dL (0.2-1.3)
[2020-11-04] MEDS: POTASSIUM CHLORIDE ER 20 MEQ TAB.ER PO SCH ×2 (09:04→19:54)
[2020-11-04] MEDS: allopurinoL 100 MG TAB PO SCH (09:04)
[2020-11-04] MEDS: ESCITALOPRAM 10 MG TAB PO SCH (09:04)
[2020-11-04] MEDS: FUROSEMIDE 20 MG TAB PO SCH (09:04)
[2020-11-04] MEDS: METOPROLOL TARTRATE 50 MG TAB PO SCH ×2 (09:04→19:54)
[2020-11-04] MEDS: ISOSORBIDE MONONITRATE ER 30 MG TAB.ER.24H PO SCH (09:05)
--- NOTE | 2020-11-04 10:16 | CDI ---
Documentation Clarification Form Date: 11/04/2020 09:10:56 AM From: Mirian Avelar RN CCDS Admit Date: 10/28/2020 06:04:00 PM Patient Name: Gisela Harman Visit Number: [id number] Discharge Date: ATTENTION: The Clinical Documentation Specialists (CDI) and [facility] Coding Staff appreciate your assistance in clarifying documentation. Please respond to the clarification below the line at the bottom and electronically sign. The CDI & [facility] Coding staff will review the response and follow-up if needed. Please note: Queries are made part of the Legal Health Record. If you have any questions, please contact the author of this message via ITS. Dr. Susan Virk, Conflicting documentation has been found in the medical record. As attending physician, please provide clarification. Acute exacerbation of diastolic heart failure, Cardiology progress 10/30 thru 11/03. Acute on chronic systolic congestive heart failure, Nephrology progress note 11/03. History/Risk Factors: 85-year-old female presents to the ED with worsening shortness of breath and generalized weakness. Medical history: Chronic diastolic heart failure, CKD III and Cardiorenal syndrome. H&P 10/28. Clinical Indicators: CXR 10/28: Mild congestive heart failure. Right pleural effusion and right basilar atelectasis. BNP 10/28: 5990 Echo 10/29: EF 45-50%, Moderate to severe mitral regurgitation is present. Moderate tricuspid regurgitation. Mild pulmonary hypertension. Treatment: 10/28 Lasix 40mg IV x 1; 10/29 Lasix 40mg IV Q12HR MAIKOL d/c 10/30; 10/30 Lasix 40mg PO Daily d/c 10/31; 10/31 Lasix 60mg PO Daily MAIKOL to current; 11/02 Lasix 40mg IV x 1; 10/29 Imdur 30mg PO Daily MAIKOL to current; 10/29 Lopressor 25mg PO BID changed 10/30 50mg PO BID MAIKOL; Lopressor 10/30 25mg PO x 1. Please clarify which diagnosis is most appropriate: [ ] Acute on chronic of diastolic heart failure [ ] Acute on chronic systolic heart failure. [ ] Other (please specify) [ ] Unable to determine (Template Last Revised: July 2020) Acute on chronic diastolic heart failure MTDD
--- NOTE | 2020-11-04 11:10 | P.PN ---
Subjective Progress Note Date: 11/04/20 On today's evaluation of 11/04/2020, the patient continues to BE short of breath on 3 L of oxygen by nasal cannula. She is alert and oriented 3. She is following commands. She has chronic kidney disease with some acute decompensation of the renal function with a creatinine being on the rise probably related to underlying use of diuretics and a combination of Lasix and Zaroxolyn. Her echocardiogram at shown diastolic heart failure with an ejection fraction of 40-45%. Repeat chest x-ray was not 11/02/2020 and the patient had a moderate-sized right-sided pleural effusion along with some pulmonary vascular congestion. I was forced by the primary care team to consider a right-sided thoracentesis. Platelets of 296. Creatinine is 55 with a creatinine of 2.1. Serum bicarb is 38. Hemoglobin is stable at 8.8. The patient is taking Lasix 60 mg by mouth daily the patient is also on Zaroxolyn 2.5 mg by mouth daily. Limited edema in lower extremities bilaterally. Objective - Vital Signs Vital signs: Vital Signs Temp 98.4 F 11/04/20 03:36 Pulse 110 H 11/04/20 08:00 Resp 16 11/04/20 08:00 BP 105/64 11/04/20 08:00 Pulse Ox 95 11/04/20 08:00 Intake & Output 11/03/20 11/04/20 11/04/20 18:59 06:59 18:59 Intake Total 240 240 240 Output Total 400 670 Balance -160 -430 240 Weight 79 kg 80.4 kg Intake: Oral 240 240 240 Output: Urine 400 670 Other: Voiding Method Bedside Commode # Voids 2 1 - Exam GENERAL EXAM: Alert, very pleasant, 85-year-old white female, on 3 L of oxygen with pulse ox of 93%, comfortable in no apparent distress. HEAD: Normocephalic/atraumatic. EYES: Normal reaction of pupils, equal size. Conjunctiva pink, sclera white. NOSE: Clear with pink turbinates. THROAT: No erythema or exudates. NECK: No masses, no JVD, no thyroid enlargement, no adenopathy. CHEST: No chest wall deformity. Symmetrical expansion. LUNGS: Equal air entry with no crackles, wheeze, rhonchi or dullness. CVS: Regular rate and rhythm, normal S1 and S2, no gallops, no murmurs, no rubs ABDOMEN: Soft, nontender. No hepatosplenomegaly, normal bowel sounds, no guarding or rigidity. EXTREMITIES: No clubbing, no edema, no cyanosis, 2+ pulses and upper and lower extremities. MUSCULOSKELETAL: Muscle strength and tone normal. SPINE: No scoliosis or deformity SKIN: No rashes CENTRAL NERVOUS SYSTEM: Alert and oriented -3. No focal deficits, tone is normal in all 4 extremities. PSYCHIATRIC: Alert and oriented -3. Appropriate affect. Intact judgment and insight. - Labs CBC & Chem 7: 11/04/20 06:50 11/04/20 06:50 Labs: Abnormal Lab Results - Last 24 Hours (Table) 11/04/20 11/04/20 Range/Units 06:50 06:50 RBC 3.05 L (3.80-5.40) m/uL Hgb 8.8 L (11.4-16.0) gm/dL Hct 29.2 L (34.0-46.0) % MCHC 30.0 L (31.0-37.0) g/dL RDW 18.6 H (11.5-15.5) % Neutrophils # 8.3 H (1.3-7.7) k/uL Chloride 97 L (98-107) mmol/L Carbon Dioxide 38 H (22-30) mmol/L BUN 55 H (7-17) mg/dL Creatinine 2.13 H (0.52-1.04) mg/dL Glucose 113 H (74-99) mg/dL Total Protein 6.1 L (6.3-8.2) g/dL Assessment and Plan Plan: 1 moderate-sized right-sided pleural effusion probably related to CHF as the patient is known to have diastolic heart failure with an ejection fraction of 45-50%. 2 acute hypoxic respiratory failure currently on 2 L about 2 by nasal cannula with a pulse ox of 95% 3 Anemia, status post 1 unit of PRBCs. 4 Status post EGD and colonoscopy, which revealed nonbleeding ulcers noted in the gastric antrum and duodenum, without high risk for bleeding. In addition, there was mild gastritis, moderate lyman-diverticulosis, and small polyps removed from the cecum and transverse colon. 5 Chronic kidney disease, with a component of an acute kidney injury probably related to diuretics. The patient was given a combination of diuretics and the patient is currently on Lasix 60 mg by mouth once a day. She is on Zaroxolyn for now. 6 Chronic atrial fibrillation. 7 History of CAD, with previous catheterization and stenting. 8 Status post bypass grafting. 9 History of gastroesophageal reflux disease. 10 History of hyperlipidemia. 11 Prior history of myocardial infarction. 12 Questionable history of COPD, as the patient did smoke quit smoking more than 40 years ago. Plan: Ultrasound of the chest with marking of the right-sided pleural effusion We'll proceed with a diagnostic and therapeutic thoracentesis continue diuretics for now. Monitor renal function. Further recommendations to follow based on the results of the fluid analysis.
--- NOTE | 2020-11-04 12:00 | US ---
EXAMINATION TYPE: US chest DATE OF EXAM: 11/04/2020 COMPARISON: chest X ray CLINICAL HISTORY: right pleural effusion. TECHNIQUE: Targeted ultrasound of the posterior right chest EXAM MEASUREMENTS: Right Pleural Effusion pocket size: 3.7 cm A/P and was not marked; lung noted floating within pleura l fluid. Dr Samano, tar man, was at patient's bedside at time of US of chest. Right side was not marked for possible thoracentesis outside the dept. Pulmonologists are able to review the images in the patient?s EMR. IMPRESSIONS: Small right pleural effusion not marked for thoracentesis.
--- NOTE | 2020-11-04 12:25 | CT ---
EXAMINATION TYPE: CT chest wo con DATE OF EXAM: 11/04/2020 COMPARISON: Ultrasound chest 11/04/2020, chest x-ray 11/04/2020, CT chest 09/14/2018 HISTORY: Right pleural effusion CT DLP: 482.8 mGycm. Automated Exposure Control for Dose Reduction was Utilized. TECHNIQUE: CT scan of the thorax is performed without IV contrast. FINDINGS: Lack of intravenous contrast could compromise sensitivity of the exam. Patient is post median sternotomy and coronary artery bypass grafts. There are dense coronary artery calcifications present. LUNGS: The lungs are free of concerning parenchymal mass or nodule. There is right pleural effusion as noted on prior ultrasound, there is associated compressive atelectasis. Emphysematous changes ar e present at the upper lobes, interstitium appears prominently, pulmonary artery is increased in siz e. The tracheobronchial tree is patent. MEDIASTINUM: Lack of IV contrast is noted to limit evaluation for mediastinal and especially hilar ad enopathy. There are no definitive greater than 1 cm hilar or mediastinal lymph nodes. No pericardia l effusion is seen. Heart appears enlarged OTHER: Patient is post cholecystectomy. There is elevation of the right hemidiaphragm. There is thora cic spondylosis. Aorta shows atheromatous change. IMPRESSION: Right pleural effusion and associated atelectasis, correlate to exclude pneumonia, pulmon saundra venous hypertension and interstitial edema, there is cardiomegaly and additional findings above.
--- NOTE | 2020-11-04 13:57 | PN ---
PROGRESS NOTE Patient is seen for followup for chronic kidney disease and acute kidney injury. The patient is currently being diuresed. Diuretics are p.o. at this time. Renal function is stable with creatinine staying at about 2 mg/dL. PHYSICAL EXAMINATION: On examination today, patient is comfortable. She denies any significant complaints. EXAMINATION: Today, blood pressure 105/64, heart rate 110 per minute. Patient is afebrile. Examination of the heart S1, S2. Examination of the lungs, bilateral breath sounds are heard. ABDOMEN: Soft, nontender, obese. Exam of lower extremities shows trace edema bilaterally. CLIENT EXPERIENCE ADMINISTRATOR exam shows patient does not communicate much, but she does follow commands. LAB: Show sodium 138, potassium 4.5, chloride 97, BUN 55, serum creatinine 2.13, hemoglobin of 8.8 g/dL. ASSESSMENT: 1. Acute kidney injury cardiorenal currently stable. Chest x-ray continues to show possible interstitial edema. We can switch to IV Lasix for 24 hours. 2. Cardiomyopathy, ejection fraction 45% to 50% with moderate to severe mitral regurgitation and moderate tricuspid regurgitation. 3. Chronic kidney disease, stage 4. Baseline creatinine 1.5-2 secondary to nephrosclerosis. 4. Acute gastrointestinal bleed status post EGD and colonoscopy which revealed nonbleeding ulcers and diverticulosis, status post packed RBC transfusion. 5. Pleural effusion, right-sided pleural effusion. 6. Acute hypoxic respiratory failure, currently improved. 7. Anemia of chronic disease maintained on Aranesp. PLAN: 1. Switch to IV diuretics for about 24 hours. Repeat labs in a.m. Continue with Zaroxolyn. Monitor electrolytes. Continue with Aranesp. 2. The patient has received packed RBCs this admission for anemia from gastrointestinal bleed. MMODL / IJN: [id number] /
--- NOTE | 2020-11-04 15:32 | XR ---
EXAMINATION TYPE: XR chest 2V DATE OF EXAM: 11/04/2020 COMPARISON: 11/02/2020 HISTORY: short of breath TECHNIQUE: Frontal and lateral views of the chest are obtained. FINDINGS: There is right greater than left bilateral pleural parenchymal disease and patchy airspace disease, b ilaterally. Cardiac silhouette is obscured by pulmonary findings. Sternotomy changes are present. IMPRESSION: No significant changes are present since the prior exam.
--- NOTE | 2020-11-04 19:28 | P.PN ---
Subjective Progress Note Date: 11/02/20 Gisela Harman is an 85-year-old female who presented to [facility] with a chief complaint of worsening shortness of breath and generalized weakness. Patient stated that her symptoms started month ago however she was feeling much worse in the last few days. Otherwise she denies any complaints there is no fever or chills no headache or dizziness no chest pain no cough no nausea or vomiting no abdominal pain no diarrhea no blood in the stools no burning with urination no frequency or urgency and no hematuria. There is no weakness or numbness in any of the extremities no change in her vision speech or gait. Patient has a known history of persistent atrial fibrillation, history of hypertension, history of hyperlipidemia, history of hypothyroidism, history of gout, history of chronic diastolic congestive heart failure, history of chronic kidney disease stage III with history of cardiorenal syndrome, and history of chronic anemia. Her last admission to the hospital was in February 2019. She was evaluated in the emergency room vital examination on presentation revealed a temperature of 97.6 heart rate 117 respiration 20 blood pressure 100/71 pulse ox 86% on room air, laboratory data revealed a white blood count of 9.0 hemoglobin 7.4 platelet count 290 sodium 136 BUN 57 and creatinine 1.67 troponin level was 0.071 chest x-ray revealed evidence of mild congestive heart failure and right pleural effusion and right basilar atelectasis , patient was admitted to telemetry floor cardiology consultation and pulmonary consultation were requested. Patient is very hard of hearing, history and review of symptoms mostly provided by her son who was at the bedside at the time of my exam, On 10/29/2020 patient is alert resting comfortably in bed. Patient is extremely hard of hearing. 2-D echo is in process. Patient remains on IV Lasix. Hemoglobin 6.9 1 unit PRBCs have been ordered. GI services have been consulted for anemia. Pulmonary and cardiology services also following. At this time patient denies any chest pain. Patient denies nausea vomiting or diarrhea. P atient denies any urinary burning or frequency. On 10/30/2020 patient alert and oriented resting in bed. Plans for EGD and colonoscopy today per GI services status post transfusion of 1 unit of PRBCs. Hemoglobin 8.6. Pulmonary, cardiology and GI service is currently following. At this time patient denies chest pain or shortness breath. Patient denies nausea vomiting or diarrhea. Patient denies urinary burning or frequency On 10/31/2020 patient is alert and oriented and status post EGD and colonoscopy showing nonbleeding ulcers noted in the gastrohepatic antrum and duodenum without high risk stigmata for bleeding. GI recommendation continue Protonix twice daily upon discharge. Hemoglobin today 8.4. Patient has been transitioned to oral Lasix per cardiology services. At this time patient denies chest pain or shortness of breath. Patient denies nausea vomiting or diarrhea. Patient denies any urinary burning or frequency On 11/01/2020 Patient was seen and examined on the medical floor, she is alert and oriented x 3 in no distress, she is complaining of weakness and fatigue otherwise she denies any complaints there is no fever or chills no headache or dizziness no chest pain no shortness of breath no palpitation no cough no nausea or vomiting no abdominal pain no diarrhea no blood in the stools no burning with urination no frequency or urgency and no hematuria, there is no weakness or numbness in any of the extremities no change in vision speech or gait. Blood pr essure was significantly low today Lasix and metoprolol were held will continue to monitor will recheck labs and chest x-ray in a.m. On 11/02/2020 Patient was seen and examined on the medical floor, she is alert and oriented x 3 in no distress, she denies any complaints there is no fever or chills no headache or dizziness no chest pain no shortness of breath no palpitation no cough no nausea or vomiting no abdominal pain no diarrhea no blood in the stools no burning with urination no frequency or urgency and no hematuria. At this time patient is improving gradually will continue with current management will recheck in a.m. Objective - Vital Signs Vital signs: Vital Signs Temp 98.2 F 11/02/20 04:00 Pulse 55 L 11/02/20 04:00 Resp 18 11/02/20 04:00 BP 101/67 11/02/20 04:00 Pulse Ox 96 11/02/20 04:00 Intake & Output 11/01/20 11/02/20 11/02/20 18:59 06:59 18:59 Intake Total 480 118 Output Total 500 Balance 480 -382 Weight 79.2 kg Intake: Oral 480 118 Output: Urine 500 Other: Voiding Method Bedside Commode Bedside Commode # Voids 3 1 - Exam In general patient is alert and oriented x 3 in no distress HEENT head normocephalic and atraumatic Neck is supple no JVD no goiter no lymphadenopathy no carotid bruit Chest examination is clear to auscultation no crackles no wheezing Cardiac exam reveals regular heart sounds S1 and S2 no gallops no murmurs Abdomen is soft nontender no organomegaly with normal bowel sounds Extremity exam reveals no edema no cyanosis or clubbing Neurological examination reveals no gross focal deficits - Labs CBC & Chem 7: 11/04/20 06:50 11/04/20 06:50 Labs: Abnormal Lab Results - Last 24 Hours (Table) 11/01/20 11/01/20 Range/Units 08:02 08:02 RBC 3.13 L (3.80-5.40) m/uL Hgb 8.6 L (11.4-16.0) gm/dL Hct 29.0 L (34.0-46.0) % MCHC 29.9 L (31.0-37.0) g/dL RDW 18.5 H (11.5-15.5) % Chloride 95 L (98-107) mmol/L Carbon Dioxide 38 H (22-30) mmol/L BUN 51 H (7-17) mg/dL Creatinine 2.16 H (0.52-1.04) mg/dL Glucose 111 H (74-99) mg/dL Total Protein 6.0 L (6.3-8.2) g/dL Assessment and Plan Plan: Acute on chronic diastolic congestive heart failure. cardiology services following. Patient transitioned to oral Lasix Right pleural effusion and right basilar atelectasis Elevated troponin level, will check serial EKGs and cardiac enzymes Significant anemia. Hemoglobin 6.9 requiring 1 unit of PRBCs. Status post EGD and colonoscopy showing nonbleeding ulcers noted in the gastric antrum and duodenum without high risk stigmata for bleeding. Moderate pandiverticulosis. GI recommendation Protonix twice daily upon discharge Underlying history of chronic persistent atrial fibrillation heart rate on presentation mildly elevated at 117. Per cardiology patient not currently on anticoagulation due to history of GI bleed Underlying history of hypertension Underlying history of hypothyroidism Underlying history of hyperlipidemia Underlying history of gout Underlying history of chronic kidney disease Underlying history of depression with anxiety disorder Cardiology, pulmonary and GI services following
--- NOTE | 2020-11-04 19:29 | P.PN ---
Subjective Progress Note Date: 11/04/20 Gisela Harman is an 85-year-old female who presented to [facility] with a chief complaint of worsening shortness of breath and generalized weakness. Patient stated that her symptoms started month ago however she was feeling much worse in the last few days. Otherwise she denies any complaints there is no fever or chills no headache or dizziness no chest pain no cough no nausea or vomiting no abdominal pain no diarrhea no blood in the stools no burning with urination no frequency or urgency and no hematuria. There is no weakness or numbness in any of the extremities no change in her vision speech or gait. Patient has a known history of persistent atrial fibrillation, history of hypertension, history of hyperlipidemia, history of hypothyroidism, history of gout, history of chronic diastolic congestive heart failure, history of chronic kidney disease stage III with history of cardiorenal syndrome, and history of chronic anemia. Her last admission to the hospital was in February 2019. She was evaluated in the emergency room vital examination on presentation revealed a temperature of 97.6 heart rate 117 respiration 20 blood pressure 100/71 pulse ox 86% on room air, laboratory data revealed a white blood count of 9.0 hemoglobin 7.4 platelet count 290 sodium 136 BUN 57 and creatinine 1.67 troponin level was 0.071 chest x-ray revealed evidence of mild congestive heart failure and right pleural effusion and right basilar atelectasis , patient was admitted to telemetry floor cardiology consultation and pulmonary consultation were requested. Patient is very hard of hearing, history and review of symptoms mostly provided by her son who was at the bedside at the time of my exam, On 10/29/2020 patient is alert resting comfortably in bed. Patient is extremely hard of hearing. 2-D echo is in process. Patient remains on IV Lasix. Hemoglobin 6.9 1 unit PRBCs have been ordered. GI services have been consulted for anemia. Pulmonary and cardiology services also following. At this time patient denies any chest pain. Patient denies nausea vomiting or diarrhea. P atient denies any urinary burning or frequency. On 10/30/2020 patient alert and oriented resting in bed. Plans for EGD and colonoscopy today per GI services status post transfusion of 1 unit of PRBCs. Hemoglobin 8.6. Pulmonary, cardiology and GI service is currently following. At this time patient denies chest pain or shortness breath. Patient denies nausea vomiting or diarrhea. Patient denies urinary burning or frequency On 10/31/2020 patient is alert and oriented and status post EGD and colonoscopy showing nonbleeding ulcers noted in the gastrohepatic antrum and duodenum without high risk stigmata for bleeding. GI recommendation continue Protonix twice daily upon discharge. Hemoglobin today 8.4. Patient has been transitioned to oral Lasix per cardiology services. At this time patient denies chest pain or shortness of breath. Patient denies nausea vomiting or diarrhea. Patient denies any urinary burning or frequency On 11/01/2020 Patient was seen and examined on the medical floor, she is alert and oriented x 3 in no distress, she is complaining of weakness and fatigue otherwise she denies any complaints there is no fever or chills no headache or dizziness no chest pain no shortness of breath no palpitation no cough no nausea or vomiting no abdominal pain no diarrhea no blood in the stools no burning with urination no frequency or urgency and no hematuria, there is no weakness or numbness in any of the extremities no change in vision speech or gait. Blood pr essure was significantly low today Lasix and metoprolol were held will continue to monitor will recheck labs and chest x-ray in a.m. On 11/02/2020 patient alert and oriented 3. Creatinine increasing to 2.16 and bun 51. Nephrology services will be consulted. Blood pressure does seem improved. Patient currently maintained on by mouth Lasix 60 mg. hgb 8.6. Cardiology services following. Repeat chest x-ray showing correlate for CHF with pulmonary vascular congestion slightly worsened in the interval continue moderate right pleural effusion with adjacent atelectasis or consolidation may b e slightly increased. At this time patient denies chest pain or shortness breath. Patient denies nausea vomiting or diarrhea. Patient denies any urinary burning or frequency. On 11/03/2020 Patient was seen and examined on the medical floor, she is alert and oriented x 3 in no distress, she is still complaining of shortness of breath otherwise she denies any complaints there is no fever or chills no headache or dizziness no chest pain no shortness of breath no palpitation no cough no nausea or vomiting no abdominal pain no diarrhea no blood in the stools no burning with urination no frequency or urgency and no hematuria, hemoglobin is down to 8.1 BUN 50 creatinine 2.06 at this time patient is still in marginal condition without significant improvement since admission, will discuss was multiple specialists further treatment steps, will re-consult pulmonary for possible thoracentesis, will recheck in a.m.. On 11/04/2020 Patient was seen and examined on the medical floor, she is alert and oriented x 3 in no distress, she is still complaining of shortness of breath otherwise she denies any complaints there is no fever or chills no headache or dizziness no chest pain no palpitation no cough no nausea or vomiting no abdominal pain no diarrhea no blood in the stools no burning with urination no frequency or urgency and no hematuria, there is no weakness or numbness in any of the extremities no change in vision speech or gait. Objective - Vital Signs Vital signs: Vital Signs Temp 98.4 F 11/04/20 03:36 Pulse 100 11/04/20 12:00 Resp 16 11/04/20 12:00 BP 90/54 11/04/20 12:00 Pulse Ox 98 11/04/20 12:00 Intake & Output 11/03/20 11/04/20 11/04/20 18:59 06:59 18:59 Intake Total 240 240 480 Output Total 400 670 Balance -160 -430 480 Weight 79 kg 80.4 kg Intake: Oral 240 240 480 Output: Urine 400 670 Other: Voiding Method Bedside Commode Bedside Commode # Voids 2 1 - Exam In general patient is alert and oriented x 3 in no distress HEENT head normocephalic and atraumatic Neck is supple no JVD no goiter no lymphadenopathy no carotid bruit Chest examination is clear to auscultation no crackles no wheezing Cardiac exam reveals regular heart sounds S1 and S2 no gallops no murmurs Abdomen is soft nontender no organomegaly with normal bowel sounds Extremity exam reveals no edema no cyanosis or clubbing Neurological examination reveals no gross focal deficits - Labs CBC & Chem 7: 11/04/20 06:50 11/04/20 06:50 Labs: Abnormal Lab Results - Last 24 Hours (Table) 11/04/20 11/04/20 Range/Units 06:50 06:50 RBC 3.05 L (3.80-5.40) m/uL Hgb 8.8 L (11.4-16.0) gm/dL Hct 29.2 L (34.0-46.0) % MCHC 30.0 L (31.0-37.0) g/dL RDW 18.6 H (11.5-15.5) % Neutrophils # 8.3 H (1.3-7.7) k/uL Chloride 97 L (98-107) mmol/L Carbon Dioxide 38 H (22-30) mmol/L BUN 55 H (7-17) mg/dL Creatinine 2.13 H (0.52-1.04) mg/dL Glucose 113 H (74-99) mg/dL Total Protein 6.1 L (6.3-8.2) g/dL Assessment and Plan Plan: Acute on chronic diastolic congestive heart failure. cardiology services following. Patient transitioned to oral Lasix Right pleural effusion and right basilar atelectasis Elevated troponin level. Cardiology not suggestive of acute coronary syndrome may be secondary to chronic kidney disease and/or demand ischemia secondary to anemia Significant anemia. Hemoglobin 6.9 requiring 1 unit of PRBCs. Status post EGD and colonoscopy showing nonbleeding ulcers noted in the gastric antrum and duodenum without high risk stigmata for bleeding. Moderate pandiverticulosis. GI recommendation Protonix twice daily upon discharge Underlying history of chronic persistent atrial fibrillation heart rate on presentation mildly elevated at 117. Per cardiology patient not currently on anticoagulation due to history of GI bleed Underlying history of hypertension Underlying history of hypothyroidism Underlying history of hyperlipidemia Underlying history of gout Underlying history of chronic kidney disease Underlying history of depression with anxiety disorder Acute kidney injury. Nephrology services will be consulted. DVT prophylaxis SCDs. GI prophylaxis Protonix GI services cardiology and pulmonary services following Nephrology services consulted
[2020-11-04] MEDS: LACTATED RINGERS 1,000 ML IV SCH (19:50)
[2020-11-04] MEDS: GABAPENTIN 300 MG CAP PO SCH (19:53)
[2020-11-04] MEDS: FUROSEMIDE 10 MG/ML 4 ML VIAL IV SCH (19:54)
[2020-11-04] MEDS: MONTELUKAST 10 MG TAB PO SCH (19:54)
[2020-11-05] MEDS: PANTOPRAZOLE 40 MG TABLET PO SCH (06:28)
[2020-11-05 08:38] LABS: Anisocytosis Slight; Basophils # (A) 0.1 k/uL (0-0.2); Basophils % (A) 1 %; Eosinophils # (A) 0.3 k/uL (0-0.7); Eosinophils % (A) 4 %; HCT 28.6 % (34.0-46.0); HGB 8.6 gm/dL (11.4-16.0); Hypochromasia Marked; Lymphocytes # (A) 0.9 k/uL (1.0-4.8); Lymphocytes % (A) 10 %; MCH 28.6 pg (25.0-35.0); MCHC 30.1 g/dL (31.0-37.0); Macrocytosis Slight; Mean Platelet Volume 7.2; Monocytes # (A) 0.4 k/uL (0-1.0); Monocytes % (A) 4 %; Neutrophils % (A) 81 %; Platelet Count 249 k/uL (150-450); RBC 3.01 m/uL (3.80-5.40); WBC 8.7 k/uL (3.8-10.6)
[2020-11-05 08:57] LABS: Albumin 3.5 g/dL (3.5-5.0); Calcium 9.4 mg/dL (8.4-10.2); Potassium 4.3 mmol/L (3.5-5.1); Total Bilirubin 0.4 mg/dL (0.2-1.3); Total Protein 5.9 g/dL (6.3-8.2)
[2020-11-05] MEDS: METOPROLOL TARTRATE 50 MG TAB PO SCH ×2 (09:40→20:54)
[2020-11-05] MEDS: POTASSIUM CHLORIDE ER 20 MEQ TAB.ER PO SCH ×2 (09:41→20:54)
[2020-11-05] MEDS: allopurinoL 100 MG TAB PO SCH (09:41)
[2020-11-05] MEDS: ESCITALOPRAM 10 MG TAB PO SCH (09:41)
[2020-11-05] MEDS: ISOSORBIDE MONONITRATE ER 30 MG TAB.ER.24H PO SCH (09:41)
[2020-11-05] MEDS: FUROSEMIDE 10 MG/ML 4 ML VIAL IV SCH (09:41)
--- NOTE | 2020-11-05 10:30 | P.PN ---
Subjective Progress Note Date: 11/05/20 Gisela Harman is an 85-year-old female who presented to [facility] with a chief complaint of worsening shortness of breath and generalized weakness. Patient stated that her symptoms started month ago however she was feeling much worse in the last few days. Otherwise she denies any complaints there is no fever or chills no headache or dizziness no chest pain no cough no nausea or vomiting no abdominal pain no diarrhea no blood in the stools no burning with urination no frequency or urgency and no hematuria. There is no weakness or numbness in any of the extremities no change in her vision speech or gait. Patient has a known history of persistent atrial fibrillation, history of hypertension, history of hyperlipidemia, history of hypothyroidism, history of gout, history of chronic diastolic congestive heart failure, history of chronic kidney disease stage III with history of cardiorenal syndrome, and history of chronic anemia. Her last admission to the hospital was in February 2019. She was evaluated in the emergency room vital examination on presentation revealed a temperature of 97.6 heart rate 117 respiration 20 blood pressure 100/71 pulse ox 86% on room air, laboratory data revealed a white blood count of 9.0 hemoglobin 7.4 platelet count 290 sodium 136 BUN 57 and creatinine 1.67 troponin level was 0.071 chest x-ray revealed evidence of mild congestive heart failure and right pleural effusion and right basilar atelectasis , patient was admitted to telemetry floor cardiology consultation and pulmonary consultation were requested. Patient is very hard of hearing, history and review of symptoms mostly provided by her son who was at the bedside at the time of my exam, On 10/29/2020 patient is alert resting comfortably in bed. Patient is extremely hard of hearing. 2-D echo is in process. Patient remains on IV Lasix. Hemoglobin 6.9 1 unit PRBCs have been ordered. GI services have been consulted for anemia. Pulmonary and cardiology services also following. At this time patient denies any chest pain. Patient denies nausea vomiting or diarrhea. P atient denies any urinary burning or frequency. On 10/30/2020 patient alert and oriented resting in bed. Plans for EGD and colonoscopy today per GI services status post transfusion of 1 unit of PRBCs. Hemoglobin 8.6. Pulmonary, cardiology and GI service is currently following. At this time patient denies chest pain or shortness breath. Patient denies nausea vomiting or diarrhea. Patient denies urinary burning or frequency On 10/31/2020 patient is alert and oriented and status post EGD and colonoscopy showing nonbleeding ulcers noted in the gastrohepatic antrum and duodenum without high risk stigmata for bleeding. GI recommendation continue Protonix twice daily upon discharge. Hemoglobin today 8.4. Patient has been transitioned to oral Lasix per cardiology services. At this time patient denies chest pain or shortness of breath. Patient denies nausea vomiting or diarrhea. Patient denies any urinary burning or frequency On 11/01/2020 Patient was seen and examined on the medical floor, she is alert and oriented x 3 in no distress, she is complaining of weakness and fatigue otherwise she denies any complaints there is no fever or chills no headache or dizziness no chest pain no shortness of breath no palpitation no cough no nausea or vomiting no abdominal pain no diarrhea no blood in the stools no burning with urination no frequency or urgency and no hematuria, there is no weakness or numbness in any of the extremities no change in vision speech or gait. Blood pr essure was significantly low today Lasix and metoprolol were held will continue to monitor will recheck labs and chest x-ray in a.m. On 11/02/2020 patient alert and oriented 3. Creatinine increasing to 2.16 and bun 51. Nephrology services will be consulted. Blood pressure does seem improved. Patient currently maintained on by mouth Lasix 60 mg. hgb 8.6. Cardiology services following. Repeat chest x-ray showing correlate for CHF with pulmonary vascular congestion slightly worsened in the interval continue moderate right pleural effusion with adjacent atelectasis or consolidation may b e slightly increased. At this time patient denies chest pain or shortness breath. Patient denies nausea vomiting or diarrhea. Patient denies any urinary burning or frequency. On 11/03/2020 Patient was seen and examined on the medical floor, she is alert and oriented x 3 in no distress, she is still complaining of shortness of breath otherwise she denies any complaints there is no fever or chills no headache or dizziness no chest pain no shortness of breath no palpitation no cough no nausea or vomiting no abdominal pain no diarrhea no blood in the stools no burning with urination no frequency or urgency and no hematuria, hemoglobin is down to 8.1 BUN 50 creatinine 2.06 at this time patient is still in marginal condition without significant improvement since admission, will discuss was multiple specialists further treatment steps, will re-consult pulmonary for possible thoracentesis, will recheck in a.m.. On 11/04/2020 Patient was seen and examined on the medical floor, she is alert and oriented x 3 in no distress, she is still complaining of shortness of breath otherwise she denies any complaints there is no fever or chills no headache or dizziness no chest pain no palpitation no cough no nausea or vomiting no abdominal pain no diarrhea no blood in the stools no burning with urination no frequency or urgency and no hematuria, there is no weakness or numbness in any of the extremities no change in vision speech or gait. On 11/05/2020 Patient is resting in bed. Increased lethargy today per nursing staff. patient difficult to arouse. does follow some commands but quickly falls back asleep. creatinine improved today. vitals remain stable. possible plans for thoracentesis per pulmonary. will order head CT and ABG's due to increase lethargy. Patient started on IV lasix yesterday per nephrology. Objective - Vital Signs Vital signs: Vital Signs Temp 98.2 F 11/05/20 09:37 Pulse 90 11/05/20 09:37 Resp 18 11/05/20 09:37 BP 106/59 11/05/20 09:37 Pulse Ox 96 11/05/20 09:37 Intake & Output 11/04/20 11/05/20 11/05/20 18:59 06:59 18:59 Intake Total 500 0 Balance 500 0 Weight 79.6 kg Intake: Oral 500 0 Other: Voiding Method Bedside Commode - Exam In general patient is alert and oriented x 3 in no distress HEENT head normocephalic and atraumatic Neck is supple no JVD no goiter no lymphadenopathy no carotid bruit Chest examination is clear to auscultation no crackles no wheezing Cardiac exam reveals regular heart sounds S1 and S2 no gallops no murmurs Abdomen is soft nontender no organomegaly with normal bowel sounds Extremity exam reveals no edema no cyanosis or clubbing Neurological examination reveals no gross focal deficits - Labs CBC & Chem 7: 11/05/20 07:49 11/05/20 07:49 Labs: Abnormal Lab Results - Last 24 Hours (Table) 06/16/21 06/16/21 Range/Units 07:49 07:49 RBC 3.01 L (3.80-5.40) m/uL Hgb 8.6 L (11.4-16.0) gm/dL Hct 28.6 L (34.0-46.0) % MCHC 30.1 L (31.0-37.0) g/dL RDW 19.0 H (11.5-15.5) % Lymphocytes # 0.9 L (1.0-4.8) k/uL Chloride 97 L (98-107) mmol/L Carbon Dioxide 39 H (22-30) mmol/L BUN 59 H (7-17) mg/dL Creatinine 1.87 H (0.52-1.04) mg/dL Total Protein 5.9 L (6.3-8.2) g/dL Assessment and Plan Assessment: Acute on chronic diastolic congestive heart failure. cardiology services fol [facility]. nephrology services has placed patient back on IV lasix Right pleural effusion and right basilar atelectasis. plans for possible thoracentesis today per pulmonary Elevated troponin level. Cardiology not suggestive of acute coronary syndrome may be secondary to chronic kidney disease and/or demand ischemia secondary to anemia Significant anemia. Hemoglobin 6.9 requiring 1 unit of PRBCs. Status post EGD and colonoscopy showing nonbleeding ulcers noted in the gastric antrum and duodenum without high risk stigmata for bleeding. Moderate pandiverticulosis. GI recommendation Protonix twice daily upon discharge Underlying history of chronic persistent atrial fibrillation heart rate on presentation mildly elevated at 117. Per cardiology patient not currently on anticoagulation due to history of GI bleed Underlying history of hypertension Underlying history of hypothyroidism Underlying history of hyperlipidemia Underlying history of gout Underlying history of chronic kidney disease Underlying history of depression with anxiety disorder Acute kidney injury. Nephrology services will be consulted. increased lethargy. head CT and ABG's ordered. DVT prophylaxis SCDs. GI prophylaxis Protonix GI services cardiology and pulmonary services following Nephrology services consulted head CT and ABG's ordered possible thoracentesis today 11/05/2020 per pulmonary
[2020-11-05 10:41] LABS: ABG Base Excess 14.9 mmol/L; ABG Oxygen Saturation 94.6 % (94-97); ABG PCO2 67 mmHg (35-45); ABG PH 7.39 (7.35-7.45); ABG PO2 71 mmHg (83-108); ABG TCO2 42 mmol/L (19-24); Allen Test Performed? Yes
[2020-11-05 10:45] LABS: ABG HCO3 40 mmol/L (21-25)
--- NOTE | 2020-11-05 11:54 | CT ---
EXAMINATION TYPE: CT brain wo con DATE OF EXAM: 11/05/2020 HISTORY: Altered mental status changes CT DLP: 1060.8 mGycm. Automated Exposure Control for Dose Reduction was Utilized. TECHNIQUE: CT scan of the head is performed without contrast. COMPARISON: CT brain March 02, 2019. FINDINGS: There is no acute intracranial hemorrhage or midline shift identified. There is moderate diffuse ventricular and sulcal prominence greatest over bilateral frontal and temporal lobes. There is mild low-attenuation in the periventricular white matter consistent with chronic small vessel isch emic change. The globes are intact and the visualized sinuses are clear. Patchy cerumen in the eric ateral extradural auditory canals is redemonstrated. Severe vascular calcification distal internal ca rotid arteries bilaterally is redemonstrated. IMPRESSION: No acute intracranial hemorrhage or midline shift. There is moderate diffuse cerebral a trophy greatest over bilateral frontal and temporal lobes and mild chronic small vessel ischemic melgar ge. Correlate for frontal temporal dementia disorders.
--- NOTE | 2020-11-05 12:38 | P.PN ---
Subjective Progress Note Date: 11/05/20 11/05/2020, the patient was found to be more lethargic and sleepy and somnolent. She was arousable and she was following commands. Nevertheless she would go back to sleep if left unstimulated. At that point, her blood gases were done and the patient is a 39 with a pCO2 of 67 and pO2 of 71. This was done and I FiO2 of 3 L. Currently the patient is on a BiPAP at a pressure of 12 and 5 cm of water is utilizing a full face mask with an FiO2 of 40%. A computed tomography scan of the chest was done yesterday and showed a small right-sided pleural effusion. There was also evidence of a compressive atelectasis of the right lung base. There was emphysematous changes bilaterally. There was poss ibility of an underlying interstitial edema in addition. The CAT scan of the brain was done today that showed no acute intracranial abnormalities. It showed moderate diffuse cerebral atrophy greater over the bilateral frontal and temporal lobes and evidence of mild chronic small vessel ischemic change. The patient currently seems to be more awake. She is on no antibiotic coverage. He is alkalotic with a serum bicarb of 39. Urine is a 59 with a creatinine of 1.87. Rest of the electrolytes are all within normal limits. At the time of my evaluation, the patient was already more awake. She was complaining of excessive oral dryness. I took her off the BiPAP and put her back on oxygen at 4 L. I gave her some sips of water which she was able to drink without any major difficulties. No edema in lower extremities. She is still moving all 4 extremities and there is no focal neurological deficit. Objective - Vital Signs Vital signs: Vital Signs Temp 98.2 F 11/05/20 09:37 Pulse 90 11/05/20 09:37 Resp 18 11/05/20 09:37 BP 106/59 11/05/20 09:37 Pulse Ox 96 11/05/20 09:37 Intake & Output 11/04/20 11/05/20 11/05/20 18:59 06:59 18:59 Intake Total 500 120 Output Total 200 Balance 500 -80 Weight 79.6 kg Intake: Oral 500 120 Output: Urine 200 Other: Voiding Method Bedside Commode - Exam GENERAL EXAM: Alert, very pleasant, 85-year-old white female, on 3 L of oxygen with pulse ox of 93%, comfortable in no apparent distress. HEAD: Normocephalic/atraumatic. EYES: Normal reaction of pupils, equal size. Conjunctiva pink, sclera white. NOSE: Clear with pink turbinates. THROAT: No erythema or exudates. NECK: No masses, no JVD, no thyroid enlargement, no adenopathy. CHEST: No chest wall deformity. Symmetrical expansion. LUNGS: Equal air entry with no crackles, wheeze, rhonchi or dullness. CVS: Regular rate and rhythm, normal S1 and S2, no gallops, no murmurs, no rubs ABDOMEN: Soft, nontender. No hepatosplenomegaly, normal bowel sounds, no guarding or rigidity. EXTREMITIES: No clubbing, no edema, no cyanosis, 2+ pulses and upper and lower extremities. MUSCULOSKELETAL: Muscle strength and tone normal. SPINE: No scoliosis or deformity SKIN: No rashes CENTRAL NERVOUS SYSTEM: Alert and oriented -3. No focal deficits, tone is normal in all 4 extremities. PSYCHIATRIC: Alert and oriented -3. Appropriate affect. Intact judgment and insight. - Labs CBC & Chem 7: 11/05/20 07:49 11/05/20 07:49 Labs: Abnormal Lab Results - Last 24 Hours (Table) 11/05/20 11/05/20 11/05/20 Range/Units 07:49 07:49 10:38 RBC 3.01 L (3.80-5.40) m/uL Hgb 8.6 L (11.4-16.0) gm/dL Hct 28.6 L (34.0-46.0) % MCHC 30.1 L (31.0-37.0) g/dL RDW 19.0 H (11.5-15.5) % Lymphocytes # 0.9 L (1.0-4.8) k/uL ABG pCO2 67 H (35-45) mmHg ABG pO2 71 L (83-108) mmHg ABG HCO3 40 H* (21-25) mmol/L ABG Total CO2 42 H (19-24) mmol/L Chloride 97 L (98-107) mmol/L Carbon Dioxide 39 H (22-30) mmol/L BUN 59 H (7-17) mg/dL Creatinine 1.87 H (0.52-1.04) mg/dL Total Protein 5.9 L (6.3-8.2) g/dL Assessment and Plan Plan: 1 small -sized right-sided pleural effusion probably related to CHF as the patient is known to have diastolic heart failure with an ejection fraction of 45-50%. 2 acute hypoxic respiratory failure currently on 3l by nasal cannula with a pulse ox of 95% 3 Anemia, status post 1 unit of PRBCs. 4 Status post EGD and colonoscopy, which revealed nonbleeding ulcers noted in the gastric antrum and duodenum, without high risk for bleeding. In addition, there was mild gastritis, moderate lyman-diverticulosis, and small polyps removed from the cecum and transverse colon. 5 Chronic kidney disease, with a component of an acute kidney injury probably related to diuretics. The patient was given a combination of diuretics and the patient is currently on Lasix 40 mg IV q 12 and zaroxolyn 6 Chronic atrial fibrillation. 7 History of CAD, with previous catheterization and stenting. 8 Status post bypass grafting. 9 History of gastroesophageal reflux disease. 10 History of hyperlipidemia. 11 Prior history of myocardial infarction. 12 COPD, as the patient did smoke quit smoking more than 40 years ago. 13 chronic hypoxic/hypercapnic respiratory failure, compensated based on the most recent blood gas. Plan: Chief for thoracentesis. There is improvement will be limited based on the size of the pleural effusion. I think the risk-benefit of this procedure will favor not to do the procedure. Continue diuretics and drop the Lasix to 40 mg once a day. Taken off the BiPAP with the patient back on nasal cannula at 3 L. Continue aggressive the treatments with chest x-ray in a.m. CAT scan of the brain was noted. We'll continue to follow. monitor renal function. We will also obtain a baseline pro-calcitonin level.
--- NOTE | 2020-11-05 13:24 | PN ---
PROGRESS NOTE Patient is seen for followup for CKD. The patient is maintained on IV Lasix and Zaroxolyn to 2.5 mg once a week. Her renal function is stable. Creatinine is actually improved, although patient has developed metabolic alkalosis. She is comfortable lying in bed, sleeping, easily arousable. PHYSICAL EXAMINATION: On examination today, blood pressure 107/57, heart rate 103 per minute. She is afebrile. Examination of the heart S1, S2. Examination of lungs, decreased breath sounds at bases. Abdomen is soft, obese, nontender. Examination of lower extremities: Chronic skin changes. 1+ edema noted. LAB: Show sodium 139, potassium 4.3, BUN 59, serum creatinine 1.87, hemoglobin 8.6 g/dL. ASSESSMENT: 1. Acute kidney injury cardiorenal with improving renal function. Chest x-ray continues to show possible interstitial edema. Therefore, patient was switched over to IV Lasix. 2. Metabolic alkalosis secondary to diuretics. 3. Cardiomyopathy, ejection fraction 45% to 50% with moderate to severe mitral regurg and moderate tricuspid regurgitation. 4. Chronic kidney disease, stage 4. Baseline creatinine 1.5-2 mg/dL secondary to nephrosclerosis. 5. Acute gastrointestinal bleed status post EGD and colonoscopy which showed nonbleeding ulcers and diverticulosis, status post packed RBCs transfusion. 6. Right pleural effusion. 7. Acute hypoxic respiratory failure, currently improved. 8. Anemia of chronic disease, maintained on Aranesp. PLAN: Add Demadex. Continue with IV Lasix for one more day. Repeat labs in a.m. Continue with Aranesp. MMODL / IJN: [id number] /
[2020-11-05] MEDS: IPRATROPIUM-ALBUTEROL 3 ML NEB INHALATION SCH ×2 (16:26→21:23)
[2020-11-05] MEDS: acetaZOLAMIDE 250 MG TAB PO SCH ×2 (16:53→20:54)
--- NOTE | 2020-11-05 17:35 | P.CNNES ---
History of Present Illness Consult date: 11/05/20 Requesting physician: Funmilayo Dee Reason for Consult: Altered mental status History of Present Illness: Patient is a 85-year-old female came to the hospital on 10/28/2020 for generalized weakness, dyspnea on exertion and excessive sleepiness. Patient was diagnosed with congestive heart failure, chronic atrial fibrillation and dyspnea. Patient has developed numerous medical/metabolic conditions in the hospital. She developed severe abdominal pain for which she underwent colonoscopy, which showed only polyp. However upper GI showed an ulcer that was bleeding. She has anemia. Patient has pleural effusion related to CHF and chronic renal insufficiency. I spoke to patient's daughter, who was present at the time. She states that patient has history of memory loss going on for the last 2 years, which has become worse in the last 3-4 months. She cannot remember after 5 minutes what she was told. Her memory functions has got further worse while in the hospital. Patient's daughter has not noticed any strokelike symptoms, like slurred speech facial droop focal weakness numbness or tingling. Patient's daughter has noticed that yesterday she was having hallucinations, talking to people who were not there. She has never had any hallucinations the past. Patient has significantly decreased nutritional intake lately due to lack of appetite. Neurology was consulted for altered mental status. CT head performed today showed no acute independent hemorrhage or midline shift. There is moderate diffuse cerebral atrophy greatest over bilateral frontal and temporal lobes, and mild chronic small vessel ischemic change. Correlate for frontal temporal dementia. 2-D echo revealed normal left ventricular size. Moderate concentric LVH. EF is between 45-50%. Basal inferior, basal inferior septal left ventricular wall motion is hypokinetic. Left atrium is moderately dilated. Moderate to severe MR. Moderate TR. Patient's blood test shows WBC 8.7 hemoglobin 8.6, platelets 249. Electrolytes are normal. BUN 59, creatinine 1.87. Patient does have chronic renal insufficiency. Hepatic panel normal. Patient's ABG shows pH 7.39, pCO2 67, pO2 71 and saturation 94.6% on 32% FiO2. Patient is currently on BiPAP. Chest x-ray showed right greater than left bilateral pleural parenchymal disease and patchy air space disease bilaterally. B12 267, folate 4.2, TSH 0.130, free T4 0.39 Patient has history of smoking 1 pack per day for 25-30 years, quit in her 50s. She has COPD. Patient denies diabetes or hypertension. Review of Systems Patient complains of trouble breathing. Complains of severe tiredness, denies any pain anywhere in the body. She does have chronic back pain, peripheral neuropathy. She had back surgery in the past. Patient has bruises and ecchymosis. Denies any abdominal pain at this time. No double vision, loss of vision. No slurred speech or dysphagia. She has decreased appetite. No fever or chills. Past Medical History Past Medical History: Atrial Fibrillation, Coronary Artery Disease (CAD), Chest Pain / Angina, Heart Failure, COPD, GERD/Reflux, Hyperlipidemia, Myocardial Infarction ([place]), Osteoarthritis (OA), Pneumonia, Renal Disease Additional Past Medical History / Comment(s): Pt recently admitted to [facility] on 11/24/18 with dyspnea r/t CHF/cardiomyopathy and acute on chronic kidney disease. Other hx: Chronic Afib, neuropathy bilateral feet, gout bilateral feet, falls, occasional low back pain with bilateral sciatica with L side worse, hypothyroid, epistaxis with blood loss anemia, recent memory impairment Last Myocardial Infarction Date:: 2012 History of Any Multi-Drug Resistant Organisms: None Reported Past Surgical History: Appendectomy, Back Surgery, Cardiac Ablation, Cholecystectomy, Coronary Bypass/CABG, Heart Catheterization With Stent, Hysterectomy Additional Past Surgical History / Comment(s): LOW, 1993 CABG-4 vessels, nasal cauterization, colonoscopy with benign polypectomy, D&C, bilateral cataract removals, R breast benign bx, lumbar laminectomy. Past Anesthesia/Blood Transfusion Reactions: Previous Problems w/ Anesthesia Additional Past Anesthesia/Blood Transfusion Reaction / Comment(s): Pt received blood 02/07/12 without reaction after epistaxis. Date of Last Stent Placement:: 03/2013 Past Psychological History: Anxiety, Depression Additional Psychological History / Comment(s): Pt resides alone. She uses a walker to ambulate. She drives. She has home oxygen and a nebulizer. Smoking Status: Former smoker Past Alcohol Use History: Occasional Additional Past Alcohol Use History / Comment(s): Pt has a glass of wine each evening. She started smoking in 6 and quit in 1986. Past Drug Use History: None Reported - Past Family History Mother Additional Family Medical History / Comment(s): Mother was a heavy drinker. She lived to be in her 80's Father Family Medical History: No Reported History Additional Family Medical History / Comment(s): Father lived to be in his 80's Medications and Allergies Home Medications Medication Instructions Recorded Confirmed Type Escitalopram [Lexapro] 10 mg PO DAILY 07/20/18 10/28/20 History allopurinoL [Zyloprim] 300 mg PO DAILY 07/20/18 10/28/20 History Montelukast [Singulair] 10 mg PO HS #30 tab 09/18/18 10/28/20 Rx Isosorbide Mononitrate [Isosorbide 30 mg PO DAILY 10/22/18 10/28/20 History Mononitrate ER] metOLazone [Zaroxolyn] 2.5 mg PO FR 10/22/18 10/28/20 History Metoprolol Tartrate [Lopressor] 25 mg PO BID #0 tab 03/07/19 10/28/20 Rx Calm Support Supplement 1 cap PO HS 10/28/20 10/28/20 History Calm Support Supplement 2 cap PO DAILY@1600 10/28/20 10/28/20 History Furosemide [Lasix] 40 mg PO DAILY@1400 10/28/20 10/28/20 History Furosemide [Lasix] 60 mg PO DAILY@0800 10/28/20 10/28/20 History Gabapentin [Neurontin] 300 mg PO HS 10/28/20 10/28/20 History Potassium Chloride ER [K-Dur 20] 20 meq PO BID 10/28/20 10/28/20 History Allergies Allergy/AdvReac Type Severity Reaction Status Date / Time [id number]-Ljb-Ppa Reductase AdvReac Unknown Verified 10/28/20 17:30 Inhibitor Physical Examination - Vital Signs Vital Signs: Vital Signs Temp Pulse Resp BP BP Pulse Ox 11/05/20 13:00 103 H 18 11/05/20 11:45 103 H 18 107/57 94 L 11/05/20 09:37 98.2 F 90 18 106/59 96 11/05/20 09:35 103 H 18 11/05/20 04:00 97.9 F 74 16 108/58 96 11/04/20 23:10 95 17 90/53 97 11/04/20 19:52 97.5 F L 99 17 122/63 94 L Intake and Output 11/05/20 11/05/20 11/05/20 06:59 14:59 22:59 Intake Total 120 Output Total 200 800 Balance -80 -800 Intake: Oral 120 Output: Urine 200 800 Other: Voiding Method Bedside Commode # Voids 1 Weight 79.6 kg Patient is an elderly female, very pleasant, appears somewhat sick, slightly delirious. She is slightly short of breath. Patient is mildly encephalopathic, slow mentation, prolonged latency time to answer questions. She is otherwise awake, knows that she is in the hospital but does not know the name. She could not tell the city that we are and although knows she is in [place]. Yesterday patient was thinking that she was in a hotel, but today she knows its hospital. She could not tell the current month although knows the year 2020. Not able to tell name of the current president but feels very tired. Speech and language functions are normal. No aphasia or dysarthria. Attention, concentration and fund of knowledge is quite limited. On cranial examination, pupils are round and reacting to light, visual jones are full on confrontation, with no neglect on double simultaneous biotechnician. Her extraocular muscles are intact with no nystagmus. Face is symmetric, tongue protrudes to the midline. Palatal elevation and sensation normal, hearing is moderately decreased and shoulder shrug normal, facial sensation normal. Shoul sarina shrug normal. On muscle strength testing, patient has chronic issues with the left shoulder therefore was not checked. No pronator drift on the right. Patient has significant myoclonic jerks of outstretched hands noticed bilaterally. Patient's strength is normal in the right arm and right leg distally and proximally. On the left arm, the deltoid is weak from arthritis. Biceps and triceps and mammographer is normal. Her left hip flexion is weak about 4-, ankle dorsiflexion 4, whereas both of these are normal on the right side. Patient does have chronic back issues and has back surgery. Deep tendon reflexes are 1 in the upper limbs, 1 at the knees, 0 ankles bilaterally. Plantars are withdrawal versus upgoing. Sensory to touch is equal with no neglect. Cerebellar function showed no ataxia for [id number] testing. Tone and bulk of muscles normal. Gait not checked. On general examination, there is no carotid bruit or murmur, S1-S2 audible. Abdomen is soft nontender. Chest is clear. Peripheral pulses are present. No edema. Patient has significant ecchymosis in her arms more than legs. Results - Laboratory Findings CBC and BMP: 11/05/20 07:49 11/05/20 07:49 Abnormal Lab Findings: Abnormal Labs 10/28/20 10/28/20 10/28/20 16:13 16:13 16:13 RBC 2.55 L Hgb 7.4 L Hct 23.6 L MCHC RDW 18.8 H Neutrophils # Lymphocytes # Retic Count APTT 20.6 L ABG pCO2 ABG pO2 ABG HCO3 ABG Total CO2 Sodium 136 L Potassium Chloride 95 L Carbon Dioxide 34 H BUN 57 H Creatinine 1.67 H Glucose Magnesium 2.9 H Iron % Saturation Troponin I Total Protein 5.9 L Albumin 3.4 L Crossmatch 10/28/20 10/28/20 10/28/20 16:13 19:31 22:55 RBC Hgb Hct MCHC RDW Neutrophils # Lymphocytes # Retic Count APTT ABG pCO2 ABG pO2 ABG HCO3 ABG Total CO2 Sodium Potassium Chloride Carbon Dioxide BUN Creatinine Glucose Magnesium Iron % Saturation Troponin I 0.071 H* 0.079 H* 0.076 H* Total Protein Albumin Crossmatch 10/29/20 10/29/20 10/29/20 08:13 08:18 08:38 RBC 2.52 L Hgb 6.9 L* Hct 23.5 L MCHC 29.3 L RDW 18.7 H Neutrophils # Lymphocytes # Retic Count 3.8 H APTT ABG pCO2 ABG pO2 ABG HCO3 ABG Total CO2 Sodium Potassium Chloride Carbon Dioxide 35 H BUN 57 H Creatinine 1.72 H Glucose Magnesium Iron 18 L % Saturation 5.07 L Troponin I Total Protein 5.5 L Albumin 3.2 L Crossmatch 10/29/20 10/30/20 10/30/20 10:27 09:19 09:19 RBC 3.25 L Hgb 8.6 L D Hct 29.9 L MCHC 28.7 L RDW 19.1 H Neutrophils # Lymphocytes # Retic Count APTT ABG pCO2 ABG pO2 ABG HCO3 ABG Total CO2 Sodium Potassium 3.3 L Chloride 95 L Carbon Dioxide 33 H BUN 51 H Creatinine 1.62 H Glucose Magnesium Iron % Saturation Troponin I Total Protein 6.0 L Albumin Crossmatch See Detail 10/31/20 10/31/2011/01/21 07:48 07:48 08:02 RBC 2.98 L 3.13 L Hgb 8.4 L 8.6 L Hct 27.3 L 29.0 L MCHC 30.6 L 29.9 L RDW 18.9 H 18.5 H Neutrophils # Lymphocytes # Retic Count APTT ABG pCO2 ABG pO2 ABG HCO3 ABG Total CO2 Sodium Potassium Chloride 94 L Carbon Dioxide 37 H BUN 48 H Creatinine 1.89 H Glucose Magnesium Iron % Saturation Troponin I Total Protein 5.9 L Albumin 3.4 L Crossmatch 11/01/20 11/03/20 11/03/20 08:02 07:16 07:16 RBC 2.87 L Hgb 8.1 L Hct 27.1 L MCHC 29.8 L RDW 18.7 H Neutrophils # Lymphocytes # Retic Count APTT ABG pCO2 ABG pO2 ABG HCO3 ABG Total CO2 Sodium Potassium Chloride 95 L Carbon Dioxide 38 H 36 H BUN 51 H 50 H Creatinine 2.16 H 2.06 H Glucose 111 H Magnesium Iron % Saturation Troponin I Total Protein 6.0 L 5.7 L Albumin 3.2 L Crossmatch 11/04/20 11/04/20 11/05/20 06:50 06:50 07:49 RBC 3.05 L 3.01 L Hgb 8.8 L 8.6 L Hct 29.2 L 28.6 L MCHC 30.0 L 30.1 L RDW 18.6 H 19.0 H Neutrophils # 8.3 H Lymphocytes # 0.9 L Retic Count APTT ABG pCO2 ABG pO2 ABG HCO3 ABG Total CO2 Sodium Potassium Chloride 97 L Carbon Dioxide 38 H BUN 55 H Creatinine 2.13 H Glucose 113 H Magnesium Iron % Saturation Troponin I Total Protein 6.1 L Albumin Crossmatch 11/05/20 11/05/20 07:49 10:38 RBC Hgb Hct MCHC RDW Neutrophils # Lymphocytes # Retic Count APTT ABG pCO2 67 H ABG pO2 71 L ABG HCO3 40 H* ABG Total CO2 42 H Sodium Potassium Chloride 97 L Carbon Dioxide 39 H BUN 59 H Creatinine 1.87 H Glucose Magnesium Iron % Saturation Troponin I Total Protein 5.9 L Albumin Crossmatch Assessment and Plan Assessment: * Altered mental status likely due to toxic metabolic encephalopathy. Probably multifactorial due to reasons mentioned below. Patient also has trouble underlying cognitive impairment/dementia for the last 2 years, progressively getting worse. * Anemia, chronic renal failure, hypoxemia, hypercapnia, pleural effusion, CHF * Hypothyroidism * B12 and folate deficiency * Chronic atrial fibrillation * COPD * CAD status post bypass graft surgery. * Hyperlipidemia * Obesity Plan: * Patient has probable dementia with superimposed mild delirium/metabolic encephalopathy from underlying medical/metabolic conditions. Treatment of various medical/metabolic conditions as per IM/other specialties. * Patient has B12 and folate deficiency. We will start B12 and folate replacement. * We will check TSH, free T4, ammonia, B6 and B1 levels. Her last hemoglobin A1c 5.0 on 05/28/2019. * Recommend patient to follow up with neurologist as an outpatient after all medical conditions has resolved to evaluate for underlying dementia and start cognitive enhancing medication. Would hold off on starting cognitive enhancing medication at this time because of ongoing multiple medical conditions. * Discussed with patient's daughter in detail.
[2020-11-05] MEDS: FOLIC ACID 1 MG TAB PO SCH (18:54)
[2020-11-05] MEDS: CYANOCOBALAMIN 1,000 MCG/ML 1 ML VIAL IM SCH (18:54)
[2020-11-05] MEDS: LACTATED RINGERS 1,000 ML IV SCH (20:51)
[2020-11-05] MEDS: MONTELUKAST 10 MG TAB PO SCH (20:54)
[2020-11-06] MEDS: PANTOPRAZOLE 40 MG TABLET PO SCH (06:29)
--- NOTE | 2020-11-06 07:19 | XR ---
EXAMINATION TYPE: XR chest 1V portable DATE OF EXAM: 11/06/2020 COMPARISON: 11/04/2020 HISTORY: Short of breath TECHNIQUE: Single frontal view of the chest is obtained. FINDINGS: There is unchanged elevation of the right hemidiaphragm. There is worsened right pleural effusion. Ex tensive patchy airspace disease bilaterally appears similar. Cardiac silhouette is partially obscured by pulmonary findings. Sternotomy changes are noted. IMPRESSION: There is unchanged elevation of the right hemidiaphragm. There is worsened right pleural effusion. Ex tensive patchy airspace disease bilaterally appears similar.
[2020-11-06] MEDS: IPRATROPIUM-ALBUTEROL 3 ML NEB INHALATION SCH ×4 (07:41→22:17)
[2020-11-06] MEDS: LACTATED RINGERS 1,000 ML IV SCH (08:20)
[2020-11-06 08:29] LABS: Anisocytosis Slight; Basophils # (A) 0.1 k/uL (0-0.2); Basophils % (A) 1 %; Eosinophils # (A) 0.3 k/uL (0-0.7); Eosinophils % (A) 4 %; HCT 28.2 % (34.0-46.0); Hypochromasia Marked; Lymphocytes # (A) 0.9 k/uL (1.0-4.8); Lymphocytes % (A) 14 %; MCH 27.3 pg (25.0-35.0); MCHC 28.3 g/dL (31.0-37.0); MCV 96.4 fL (80.0-100.0); Macrocytosis Slight; Mean Platelet Volume 7.6; Monocytes # (A) 0.2 k/uL (0-1.0); Monocytes % (A) 3 %; Neutrophils # (A) 5.2 k/uL (1.3-7.7); Neutrophils % (A) 77 %; Platelet Count 241 k/uL (150-450); RBC 2.92 m/uL (3.80-5.40); RDW 18.9 % (11.5-15.5); WBC 6.8 k/uL (3.8-10.6)
[2020-11-06] MEDS: ISOSORBIDE MONONITRATE ER 30 MG TAB.ER.24H PO SCH (08:32)
[2020-11-06] MEDS: ESCITALOPRAM 10 MG TAB PO SCH (08:32)
[2020-11-06] MEDS: CYANOCOBALAMIN 1,000 MCG/ML 1 ML VIAL IM SCH (08:32)
[2020-11-06] MEDS: acetaZOLAMIDE 250 MG TAB PO SCH ×2 (08:32→23:27)
[2020-11-06] MEDS: POTASSIUM CHLORIDE ER 20 MEQ TAB.ER PO SCH ×2 (08:32→23:27)
[2020-11-06] MEDS: FOLIC ACID 1 MG TAB PO SCH (08:32)
[2020-11-06] MEDS: allopurinoL 100 MG TAB PO SCH (08:32)
[2020-11-06] MEDS: METOPROLOL TARTRATE 50 MG TAB PO SCH ×2 (08:32→23:27)
[2020-11-06 08:44] LABS: Albumin 3.1 g/dL (3.5-5.0); Calcium 9.4 mg/dL (8.4-10.2); Potassium 4.2 mmol/L (3.5-5.1); Total Bilirubin 0.4 mg/dL (0.2-1.3); Total Protein 5.6 g/dL (6.3-8.2)
[2020-11-06] MEDS ORDERED: FUROSEMIDE 10 MG/ML 4 ML VIAL IV SCH (09:00)
--- NOTE | 2020-11-06 13:26 | P.PN ---
Subjective Progress Note Date: 11/06/20 11/06/2020, the patient seems much more alert and awake. The patient spent overnight in the BiPAP and currently she is on oxygen at 3 L per minute nasal cannula. Noted the patient has a component of chronic hypercapnic respiratory failure which is well compensated this point in time. She is known to have COPD and the patient has a possible right-sided pneumonia with a small right-sided pleural effusion. The CAT scan of the chest was reviewed and this pleural fluid is small in size and probably not beneficial to do any thoracentesis at this point in time. The patient remains on Lasix. The patient is currently receiving 40 mg of Lasix on a daily basis by mouth, the patient is also on Diamo x 250 mg by mouth twice a day to counteract a underlying metabolic alkalosis. The patient is still receiving Zaroxolyn 2.5 mg once a week. No antibiotic coverage at this point in time. Repeat chest x-ray showing cardiomegaly there is also some elevation of the right hemidiaphragm and there is possibly worsening of the right-sided pleural effusion. The white cell cause at 6.8 with a hemoglobin of 8.0. Platelets at 241. Creatinine is at 1.97 with a BUN of 58. Sodium is at 140. LEVEL WAS ONLY AT 0.1 FROM YESTERDAY. TSH IS AT 0.6. PATIENT IS MOVING ALL 4 EXTREMITY. NEUROLOGIC EXAM IS NONFOCAL. NO SIGNIFICANT EDEMA LOWER EXTREMITIES. I HAD A FURTHER DISCUSSION WITH THE DAUGHTER WAS AT THE BEDSIDE. BASED ON THE DAUGHTERS HISTORy the patient's functional performance status over the past several years have been progressively getting worse and she has been requiring assistance of activities of daily today life. She is been essentially bedbound and hasn't been able to do much of activity. Her condition and her health has been progressively declining and the patient has been essentially sleeping most of the time in bed. This is according to the daughter. Objective - Vital Signs Vital signs: Vital Signs Temp 97.8 F 11/06/20 11:30 Pulse 104 H 11/06/20 11:30 Resp 22 11/06/20 11:30 BP 90/51 11/06/20 11:30 Pulse Ox 95 11/06/20 11:30 Intake & Output 11/05/20 11/06/20 11/06/20 18:59 06:59 18:59 Intake Total 240 240 Output Total 1000 400 Balance -760 -400 240 Weight 78.8 kg Intake: Oral 240 240 Output: Urine 1000 400 Other: Voiding Method Bedside Commode Bedside Commode # Voids 1 - Exam GENERAL EXAM: Alert, very pleasant, 85-year-old white female, on 3 L of oxygen with pulse ox of 93%, comfortable in no apparent distress. HEAD: Normocephalic/atraumatic. EYES: Normal reaction of pupils, equal size. Conjunctiva pink, sclera white. NOSE: Clear with pink turbinates. THROAT: No erythema or exudates. NECK: No masses, no JVD, no thyroid enlargement, no adenopathy. CHEST: No chest wall deformity. Symmetrical expansion. LUNGS: Equal air entry with no crackles, wheeze, rhonchi or dullness. CVS: Regular rate and rhythm, normal S1 and S2, no gallops, no murmurs, no rubs ABDOMEN: Soft, nontender. No hepatosplenomegaly, normal bowel sounds, no guarding or rigidity. EXTREMITIES: No clubbing, no edema, no cyanosis, 2+ pulses and upper and lower extremities. MUSCULOSKELETAL: Muscle strength and tone normal. SPINE: No scoliosis or deformity SKIN: No rashes CENTRAL NERVOUS SYSTEM: Alert and oriented -3. No focal deficits, tone is normal in all 4 extremities. PSYCHIATRIC: Alert and oriented -3. Appropriate affect. Intact judgment and insight. - Labs CBC & Chem 7: 11/06/20 07:56 11/06/20 07:56 Labs: Abnormal Lab Results - Last 24 Hours (Table) 11/05/20 11/06/20 11/06/20 Range/Units 07:49 07:56 07:56 RBC 2.92 L (3.80-5.40) m/uL Hgb 8.0 L (11.4-16.0) gm/dL Hct 28.2 L (34.0-46.0) % MCHC 28.3 L (31.0-37.0) g/dL RDW 18.9 H (11.5-15.5) % Lymphocytes # 0.9 L (1.0-4.8) k/uL Chloride 96 L (98-107) mmol/L Carbon Dioxide 36 H (22-30) mmol/L BUN 58 H (7-17) mg/dL Creatinine 1.97 H (0.52-1.04) mg/dL Total Protein 5.6 L (6.3-8.2) g/dL Albumin 3.1 L (3.5-5.0) g/dL Procalcitonin 0.10 H (0.02-0.09) ng/mL Assessment and Plan Plan: 1 small -sized right-sided pleural effusion probably related to CHF as the patient is known to have diastolic heart failure with an ejection fraction of 45-50%. Doubt any pneumonia at this point in time. White cell count is not elevated and the focus is on 11 is also low. The pleural effusion is small. 2 chronic hypoxic and hypercapnic respiratory failure, compensated this point in time maintained on 3 L of oxygen by nasal cannula. Please refer to the blood gases from yesterday. 3 Anemia, status post 1 unit of PRBCs. 4 Status post EGD and colonoscopy, which revealed nonbleeding ulcers noted in the gastric antrum and duodenum, without high risk for bleeding. In addition, there was mild gastritis, moderate lyman-diverticulosis, and small polyps removed from the cecum and transverse colon. 5 Chronic kidney disease, with a component of an acute kidney injury probably related to diuretics. The patient was given a combination of diuretics the patient is receiving a combination of Lasix, Zaroxolyn Diamox. 6 Chronic atrial fibrillation. 7 History of CAD, with previous catheterization and stenting. 8 Status post bypass grafting. 9 History of gastroesophageal reflux disease. 10 History of hyperlipidemia. 11 Prior history of myocardial infarction. 12 COPD, as the patient did smoke quit smoking more than 40 years ago. 13 chronic hypoxic/hypercapnic respiratory failure, compensated based on the most recent blood gas. Plan: Continue diuretics Monitor oxygenation BiPAP overnight Repeat chest x-ray in a.m. Monitor renal function will continue to follow
--- NOTE | 2020-11-06 13:41 | PN ---
PROGRESS NOTE Patient is seen for followup for acute kidney injury and chronic kidney disease. Renal function has been fairly stable. The patient has been maintained on IV Lasix. She had developed some metabolic alkalosis for which she is started on Diamox. This morning patient is seen sitting on a bedside commode. She is comfortable. She denies any shortness of breath or chest pains. PHYSICAL EXAMINATION: Blood pressure 111/57, heart rate 94 per minute. Patient is afebrile. Examination of the heart S1, S2. Examination of the lungs, bilateral breath sounds are heard. Abdomen is soft, nontender, obese. Examination of lower extremities shows no evidence of edema. HELP DESK COORDINATOR exam grossly intact. LAB: Show hemoglobin 8.0, sodium 140, potassium 4.2, chloride 96, CO2 is 36, BUN 58, creatinine 1.96. ASSESSMENT: 1. Acute kidney injury, cardiorenal, fairly stable. I will discontinue the IV Lasix and switch to p.o. diuretics. 2. Volume overload, currently improved. 3. Hypokalemia, status post replacement. 4. Metabolic alkalosis, maintained on Diamox. PLAN: Change to p.o. Lasix. MMODL / IJN: [id number] /
[2020-11-06] MEDS ORDERED: IPRATROPIUM-ALBUTEROL 3 ML NEB INHALATION PRN (13:44)
--- NOTE | 2020-11-06 15:06 | P.PN ---
Subjective Progress Note Date: 11/06/20 Patient was seen for a follow-up. Patient's daughter was also present. Per patient's daughter, she is doing much better. She has been started using BiPAP. No new focal symptoms. Patient is having BiPAP therefore examination deferred. Telemetry monitoring showing atrial fibrillation. Objective - Vital Signs Vital signs: Vital Signs Temp 97.8 F 11/06/20 11:30 Pulse 104 H 11/06/20 11:30 Resp 22 11/06/20 11:30 BP 90/51 11/06/20 11:30 Pulse Ox 95 11/06/20 11:30 Intake & Output 11/05/20 11/06/20 11/06/20 18:59 06:59 18:59 Intake Total 240 240 Output Total 1000 400 Balance -760 -400 240 Weight 78.8 kg Intake: Oral 240 240 Output: Urine 1000 400 Other: Voiding Method Bedside Commode Bedside Commode # Voids 1 - Exam Examination deferred, as patient is having BiPAP going on. Patient is awake. He makes eye contact. Moves all 4 extremities. - Labs CBC & Chem 7: 11/06/20 07:56 11/06/20 07:56 Labs: Abnormal Lab Results - Last 24 Hours (Table) 11/05/20 11/06/20 11/06/20 Range/Units 07:49 07:56 07:56 RBC 2.92 L (3.80-5.40) m/uL Hgb 8.0 L (11.4-16.0) gm/dL Hct 28.2 L (34.0-46.0) % MCHC 28.3 L (31.0-37.0) g/dL RDW 18.9 H (11.5-15.5) % Lymphocytes # 0.9 L (1.0-4.8) k/uL Chloride 96 L (98-107) mmol/L Carbon Dioxide 36 H (22-30) mmol/L BUN 58 H (7-17) mg/dL Creatinine 1.97 H (0.52-1.04) mg/dL Total Protein 5.6 L (6.3-8.2) g/dL Albumin 3.1 L (3.5-5.0) g/dL Procalcitonin 0.10 H (0.02-0.09) ng/mL Assessment and Plan Assessment: * Altered mental status likely due to toxic metabolic encephalopathy. Probably multifactorial due to reasons mentioned below. Patient also has trouble underlying cognitive impairment/dementia for the last 2 years, progressively getting worse. * Anemia, chronic renal failure, hypoxemia, hypercapnia, pleural effusion, CHF * Hypothyroidism * B12 and folate deficiency * Chronic atrial fibrillation, currently not on anticoagulation. * COPD * CAD status post bypass graft surgery. * Hyperlipidemia * Obesity Plan: * Patient has probable dementia with superimposed mild delirium/metabolic encephalopathy from underlying medical/metabolic conditions. Treatment of various medical/metabolic conditions as per IM/other specialties. * B12 267 and folate 4.2, both low. Continue B12 and folate replacement. * TSH is normal 0.691, ammonia <9, B6 and B1 levels pending. Her last hemoglobin A1c 5.0 on 05/28/2019. * Recommend patient to follow up with neurologist as an outpatient after all medical conditions has resolved to evaluate for underlying dementia and start cognitive enhancing medication. Would hold off on starting cognitive enhancing medication at this time because of ongoing multiple medical conditions. * Patient has atrial fibrillation, but currently not on anticoagulation. According to patient's daughter, she was on anticoagulation in the past. However it was taken off of while ago for the reasons that she cannot remember. At present patient is only on aspirin 81 mg. I would defer to PCP/pulmonary to consider risks and benefits of anticoagulation, for atrial fibrillation for stroke prevention. * Discussed with patient's daughter in detail.
[2020-11-06 18:11] LABS: % Iron Saturation 8.28 (12.00-45.00)
--- NOTE | 2020-11-06 18:17 | P.PN ---
Subjective Progress Note Date: 11/06/20 Gisela Harman is an 85-year-old female who presented to [facility] with a chief complaint of worsening shortness of breath and generalized weakness. Patient stated that her symptoms started month ago however she was feeling much worse in the last few days. Otherwise she denies any complaints there is no fever or chills no headache or dizziness no chest pain no cough no nausea or vomiting no abdominal pain no diarrhea no blood in the stools no burning with urination no frequency or urgency and no hematuria. There is no weakness or numbness in any of the extremities no change in her vision speech or gait. Patient has a known history of persistent atrial fibrillation, history of hypertension, history of hyperlipidemia, history of hypothyroidism, history of gout, history of chronic diastolic congestive heart failure, history of chronic kidney disease stage III with history of cardiorenal syndrome, and history of chronic anemia. Her last admission to the hospital was in February 2019. She was evaluated in the emergency room vital examination on presentation revealed a temperature of 97.6 heart rate 117 respiration 20 blood pressure 100/71 pulse ox 86% on room air, laboratory data revealed a white blood count of 9.0 hemoglobin 7.4 platelet count 290 sodium 136 BUN 57 and creatinine 1.67 troponin level was 0.071 chest x-ray revealed evidence of mild congestive heart failure and right pleural effusion and right basilar atelectasis , patient was admitted to telemetry floor cardiology consultation and pulmonary consultation were requested. Patient is very hard of hearing, history and review of symptoms mostly provided by her son who was at the bedside at the time of my exam, On 10/29/2020 patient is alert resting comfortably in bed. Patient is extremely hard of hearing. 2-D echo is in process. Patient remains on IV Lasix. Hemoglobin 6.9 1 unit PRBCs have been ordered. GI services have been consulted for anemia. Pulmonary and cardiology services also following. At this time patient denies any chest pain. Patient denies nausea vomiting or diarrhea. P atient denies any urinary burning or frequency. On 10/30/2020 patient alert and oriented resting in bed. Plans for EGD and colonoscopy today per GI services status post transfusion of 1 unit of PRBCs. Hemoglobin 8.6. Pulmonary, cardiology and GI service is currently following. At this time patient denies chest pain or shortness breath. Patient denies nausea vomiting or diarrhea. Patient denies urinary burning or frequency On 10/31/2020 patient is alert and oriented and status post EGD and colonoscopy showing nonbleeding ulcers noted in the gastrohepatic antrum and duodenum without high risk stigmata for bleeding. GI recommendation continue Protonix twice daily upon discharge. Hemoglobin today 8.4. Patient has been transitioned to oral Lasix per cardiology services. At this time patient denies chest pain or shortness of breath. Patient denies nausea vomiting or diarrhea. Patient denies any urinary burning or frequency On 11/01/2020 Patient was seen and examined on the medical floor, she is alert and oriented x 3 in no distress, she is complaining of weakness and fatigue otherwise she denies any complaints there is no fever or chills no headache or dizziness no chest pain no shortness of breath no palpitation no cough no nausea or vomiting no abdominal pain no diarrhea no blood in the stools no burning with urination no frequency or urgency and no hematuria, there is no weakness or numbness in any of the extremities no change in vision speech or gait. Blood pr essure was significantly low today Lasix and metoprolol were held will continue to monitor will recheck labs and chest x-ray in a.m. On 11/02/2020 patient alert and oriented 3. Creatinine increasing to 2.16 and bun 51. Nephrology services will be consulted. Blood pressure does seem improved. Patient currently maintained on by mouth Lasix 60 mg. hgb 8.6. Cardiology services following. Repeat chest x-ray showing correlate for CHF with pulmonary vascular congestion slightly worsened in the interval continue moderate right pleural effusion with adjacent atelectasis or consolidation may b e slightly increased. At this time patient denies chest pain or shortness breath. Patient denies nausea vomiting or diarrhea. Patient denies any urinary burning or frequency. On 11/03/2020 Patient was seen and examined on the medical floor, she is alert and oriented x 3 in no distress, she is still complaining of shortness of breath otherwise she denies any complaints there is no fever or chills no headache or dizziness no chest pain no shortness of breath no palpitation no cough no nausea or vomiting no abdominal pain no diarrhea no blood in the stools no burning with urination no frequency or urgency and no hematuria, hemoglobin is down to 8.1 BUN 50 creatinine 2.06 at this time patient is still in marginal condition without significant improvement since admission, will discuss was multiple specialists further treatment steps, will re-consult pulmonary for possible thoracentesis, will recheck in a.m.. On 11/04/2020 Patient was seen and examined on the medical floor, she is alert and oriented x 3 in no distress, she is still complaining of shortness of breath otherwise she denies any complaints there is no fever or chills no headache or dizziness no chest pain no palpitation no cough no nausea or vomiting no abdominal pain no diarrhea no blood in the stools no burning with urination no frequency or urgency and no hematuria, there is no weakness or numbness in any of the extremities no change in vision speech or gait. On 11/05/2020 Patient is resting in bed. Increased lethargy today per nursing staff. patient difficult to arouse. does follow some commands but quickly falls back asleep. creatinine improved today. vitals remain stable. possible plans for thoracentesis per pulmonary. will order head CT and ABG's due to increase lethargy. Patient started on IV lasix yesterday per nephrology. On 11/06/2020 Patient was seen and examined on the medical floor, he is alert and oriented x 3 in no distress, he denies any complaints there is no fever or chills no headache or dizziness no chest pain no shortness of breath no palpitation no cough no nausea or vomiting no abdominal pain no diarrhea no blood in the stools no burning with urination no frequency or urgency and no hematuria, there is no weakness or numbness in any of the extremities no change in vision speech or gait. Patient improved significantly since yesterday, no plans per pulmonary for thoracentesis at this time, will continue to monitor Objective - Vital Signs Vital signs: Vital Signs Temp 96.7 F L 11/06/20 08:10 Pulse 94 11/06/20 08:10 Resp 18 11/06/20 08:10 BP 111/57 11/06/20 08:10 Pulse Ox 94 L 11/06/20 08:10 Intake & Output 11/05/20 11/06/20 11/06/20 18:59 06:59 18:59 Intake Total 240 240 Output Total 1000 400 Balance -760 -400 240 Weight 78.8 kg Intake: Oral 240 240 Output: Urine 1000 400 Other: Voiding Method Bedside Commode Bedside Commode # Voids 1 - Exam In general patient is alert and oriented x 3 in no distress HEENT head normocephalic and atraumatic Neck is supple no JVD no goiter no lymphadenopathy no carotid bruit Chest examination is clear to auscultation no crackles no wheezing Cardiac exam reveals regular heart sounds S1 and S2 no gallops no murmurs Abdomen is soft nontender no organomegaly with normal bowel sounds Extremity exam reveals no edema no cyanosis or clubbing Neurological examination reveals no gross focal deficits - Labs CBC & Chem 7: 11/06/20 07:56 11/06/20 07:56 Labs: Abnormal Lab Results - Last 24 Hours (Table) 11/05/20 11/05/20 11/06/20 Range/Units 07:49 10:38 07:56 RBC 2.92 L (3.80-5.40) m/uL Hgb 8.0 L (11.4-16.0) gm/dL Hct 28.2 L (34.0-46.0) % MCHC 28.3 L (31.0-37.0) g/dL RDW 18.9 H (11.5-15.5) % Lymphocytes # 0.9 L (1.0-4.8) k/uL ABG pCO2 67 H (35-45) mmHg ABG pO2 71 L (83-108) mmHg ABG HCO3 40 H* (21-25) mmol/L ABG Total CO2 42 H (19-24) mmol/L Chloride (98-107) mmol/L Carbon Dioxide (22-30) mmol/L BUN (7-17) mg/dL Creatinine (0.52-1.04) mg/dL Total Protein (6.3-8.2) g/dL Albumin (3.5-5.0) g/dL Procalcitonin 0.10 H (0.02-0.09) ng/mL 11/06/20 Range/Units 07:56 RBC (3.80-5.40) m/uL Hgb (11.4-16.0) gm/dL Hct (34.0-46.0) % MCHC (31.0-37.0) g/dL RDW (11.5-15.5) % Lymphocytes # (1.0-4.8) k/uL ABG pCO2 (35-45) mmHg ABG pO2 (83-108) mmHg ABG HCO3 (21-25) mmol/L ABG Total CO2 (19-24) mmol/L Chloride 96 L (98-107) mmol/L Carbon Dioxide 36 H (22-30) mmol/L BUN 58 H (7-17) mg/dL Creatinine 1.97 H (0.52-1.04) mg/dL Total Protein 5.6 L (6.3-8.2) g/dL Albumin 3.1 L (3.5-5.0) g/dL Procalcitonin (0.02-0.09) ng/mL Assessment and Plan Plan: Acute on chronic diastolic congestive heart failure. cardiology services f jenni. Patient transitioned to oral Lasix Right pleural effusion and right basilar atelectasis Elevated troponin level. Cardiology not suggestive of acute coronary syndrome may be secondary to chronic kidney disease and/or demand ischemia secondary to anemia Significant anemia. Hemoglobin 6.9 requiring 1 unit of PRBCs. Status post EGD and colonoscopy showing nonbleeding ulcers noted in the gastric antrum and duodenum without high risk stigmata for bleeding. Moderate pandiverticulosis. GI recommendation Protonix twice daily upon discharge Underlying history of chronic persistent atrial fibrillation heart rate on presentation mildly elevated at 117. Per cardiology patient not currently on anticoagulation due to history of GI bleed Underlying history of hypertension Underlying history of hypothyroidism Underlying history of hyperlipidemia Underlying history of gout Underlying history of chronic kidney disease Underlying history of depression with anxiety disorder Acute kidney injury. Nephrology services will be consulted. DVT prophylaxis SCDs. GI prophylaxis Protonix GI services cardiology and pulmonary services following Nephrology services consulted
[2020-11-06] MEDS: MONTELUKAST 10 MG TAB PO SCH (23:27)
[2020-11-07] MEDS: PANTOPRAZOLE 40 MG TABLET PO SCH (06:43)
--- NOTE | 2020-11-07 07:25 | XR ---
EXAMINATION TYPE: XR chest 1V portable DATE OF EXAM: 11/07/2020 COMPARISON: 11/06/2020 HISTORY: Hypoxia TECHNIQUE: Single frontal view of the chest is obtained. FINDINGS: Right pleural effusion and bilateral airspace disease appears similar to the prior examination. Cardiac silhouette is obscured by pulmonary findings. Patient is status post sternotomy. IMPRESSION: No significant change since the prior examination.
[2020-11-07] MEDS: IPRATROPIUM-ALBUTEROL 3 ML NEB INHALATION SCH ×4 (07:27→19:45)
[2020-11-07 09:17] LABS: Anisocytosis Slight; Basophils % (A) 1 %; Eosinophils # (A) 0.3 k/uL (0-0.7); Eosinophils % (A) 5 %; HCT 30.9 % (34.0-46.0); HGB 8.6 gm/dL (11.4-16.0); Hypochromasia Marked; Lymphocytes # (A) 1.1 k/uL (1.0-4.8); Lymphocytes % (A) 16 %; MCH 27.4 pg (25.0-35.0); MCHC 27.8 g/dL (31.0-37.0); MCV 98.6 fL (80.0-100.0); Macrocytosis Slight; Mean Platelet Volume 7.4; Monocytes # (A) 0.2 k/uL (0-1.0); Monocytes % (A) 3 %; Neutrophils % (A) 75 %; Platelet Count 263 k/uL (150-450); RBC 3.14 m/uL (3.80-5.40); WBC 6.7 k/uL (3.8-10.6)
[2020-11-07] MEDS: METOPROLOL TARTRATE 50 MG TAB PO SCH ×2 (09:20→20:25)
[2020-11-07] MEDS: ESCITALOPRAM 10 MG TAB PO SCH (09:20)
[2020-11-07] MEDS: allopurinoL 100 MG TAB PO SCH (09:20)
[2020-11-07] MEDS: POTASSIUM CHLORIDE ER 20 MEQ TAB.ER PO SCH ×2 (09:20→20:24)
[2020-11-07] MEDS: acetaZOLAMIDE 250 MG TAB PO SCH ×2 (09:21→20:24)
[2020-11-07] MEDS: LACTATED RINGERS 1,000 ML IV SCH (09:21)
[2020-11-07] MEDS: CYANOCOBALAMIN 1,000 MCG/ML 1 ML VIAL IM SCH (09:21)
[2020-11-07] MEDS: FUROSEMIDE 40 MG TAB PO SCH (09:21)
[2020-11-07] MEDS: FOLIC ACID 1 MG TAB PO SCH (09:21)
[2020-11-07 09:26] LABS: Albumin 3.7 g/dL (3.5-5.0); Calcium 9.5 mg/dL (8.4-10.2); Potassium 4.2 mmol/L (3.5-5.1); Total Bilirubin 0.3 mg/dL (0.2-1.3); Total Protein 6.2 g/dL (6.3-8.2)
--- NOTE | 2020-11-07 11:07 | P.PN ---
Subjective Progress Note Date: 11/07/20 Gisela Harman is an 85-year-old female who presented to [facility] with a chief complaint of worsening shortness of breath and generalized weakness. Patient stated that her symptoms started month ago however she was feeling much worse in the last few days. Otherwise she denies any complaints there is no fever or chills no headache or dizziness no chest pain no cough no nausea or vomiting no abdominal pain no diarrhea no blood in the stools no burning with urination no frequency or urgency and no hematuria. There is no weakness or numbness in any of the extremities no change in her vision speech or gait. Patient has a known history of persistent atrial fibrillation, history of hypertension, history of hyperlipidemia, history of hypothyroidism, history of gout, history of chronic diastolic congestive heart failure, history of chronic kidney disease stage III with history of cardiorenal syndrome, and history of chronic anemia. Her last admission to the hospital was in February 2019. She was evaluated in the emergency room vital examination on presentation revealed a temperature of 97.6 heart rate 117 respiration 20 blood pressure 100/71 pulse ox 86% on room air, laboratory data revealed a white blood count of 9.0 hemoglobin 7.4 platelet count 290 sodium 136 BUN 57 and creatinine 1.67 troponin level was 0.071 chest x-ray revealed evidence of mild congestive heart failure and right pleural effusion and right basilar atelectasis , patient was admitted to telemetry floor cardiology consultation and pulmonary consultation were requested. Patient is very hard of hearing, history and review of symptoms mostly provided by her son who was at the bedside at the time of my exam, On 10/29/2020 patient is alert resting comfortably in bed. Patient is extremely hard of hearing. 2-D echo is in process. Patient remains on IV Lasix. Hemoglobin 6.9 1 unit PRBCs have been ordered. GI services have been consulted for anemia. Pulmonary and cardiology services also following. At this time patient denies any chest pain. Patient denies nausea vomiting or diarrhea. P atient denies any urinary burning or frequency. On 10/30/2020 patient alert and oriented resting in bed. Plans for EGD and colonoscopy today per GI services status post transfusion of 1 unit of PRBCs. Hemoglobin 8.6. Pulmonary, cardiology and GI service is currently following. At this time patient denies chest pain or shortness breath. Patient denies nausea vomiting or diarrhea. Patient denies urinary burning or frequency On 10/31/2020 patient is alert and oriented and status post EGD and colonoscopy showing nonbleeding ulcers noted in the gastrohepatic antrum and duodenum without high risk stigmata for bleeding. GI recommendation continue Protonix twice daily upon discharge. Hemoglobin today 8.4. Patient has been transitioned to oral Lasix per cardiology services. At this time patient denies chest pain or shortness of breath. Patient denies nausea vomiting or diarrhea. Patient denies any urinary burning or frequency On 11/01/2020 Patient was seen and examined on the medical floor, she is alert and oriented x 3 in no distress, she is complaining of weakness and fatigue otherwise she denies any complaints there is no fever or chills no headache or dizziness no chest pain no shortness of breath no palpitation no cough no nausea or vomiting no abdominal pain no diarrhea no blood in the stools no burning with urination no frequency or urgency and no hematuria, there is no weakness or numbness in any of the extremities no change in vision speech or gait. Blood pr essure was significantly low today Lasix and metoprolol were held will continue to monitor will recheck labs and chest x-ray in a.m. On 11/02/2020 patient alert and oriented 3. Creatinine increasing to 2.16 and bun 51. Nephrology services will be consulted. Blood pressure does seem improved. Patient currently maintained on by mouth Lasix 60 mg. hgb 8.6. Cardiology services following. Repeat chest x-ray showing correlate for CHF with pulmonary vascular congestion slightly worsened in the interval continue moderate right pleural effusion with adjacent atelectasis or consolidation may b e slightly increased. At this time patient denies chest pain or shortness breath. Patient denies nausea vomiting or diarrhea. Patient denies any urinary burning or frequency. On 11/03/2020 Patient was seen and examined on the medical floor, she is alert and oriented x 3 in no distress, she is still complaining of shortness of breath otherwise she denies any complaints there is no fever or chills no headache or dizziness no chest pain no shortness of breath no palpitation no cough no nausea or vomiting no abdominal pain no diarrhea no blood in the stools no burning with urination no frequency or urgency and no hematuria, hemoglobin is down to 8.1 BUN 50 creatinine 2.06 at this time patient is still in marginal condition without significant improvement since admission, will discuss was multiple specialists further treatment steps, will re-consult pulmonary for possible thoracentesis, will recheck in a.m.. On 11/04/2020 Patient was seen and examined on the medical floor, she is alert and oriented x 3 in no distress, she is still complaining of shortness of breath otherwise she denies any complaints there is no fever or chills no headache or dizziness no chest pain no palpitation no cough no nausea or vomiting no abdominal pain no diarrhea no blood in the stools no burning with urination no frequency or urgency and no hematuria, there is no weakness or numbness in any of the extremities no change in vision speech or gait. On 11/05/2020 Patient is resting in bed. Increased lethargy today per nursing staff. patient difficult to arouse. does follow some commands but quickly falls back asleep. creatinine improved today. vitals remain stable. possible plans for thoracentesis per pulmonary. will order head CT and ABG's due to increase lethargy. Patient started on IV lasix yesterday per nephrology. On 11/06/2020 Patient was seen and examined on the medical floor, he is alert and oriented x 3 in no distress, he denies any complaints there is no fever or chills no headache or dizziness no chest pain no shortness of breath no palpitation no cough no nausea or vomiting no abdominal pain no diarrhea no blood in the stools no burning with urination no frequency or urgency and no hematuria, there is no weakness or numbness in any of the extremities no change in vision speech or gait. Patient improved significantly since yesterday, no plans per pulmonary for thoracentesis at this time, will continue to monitor On 11/07/2022 patient is alert and oriented 3 resting in bed. Patient's mentation has improved per nursing staff. Patient was able to wake up a breakfa st follow commands. Creatinine slightly increased to 2.01 bun 59. Patient has been transitioned to oral Lasix. Heart rate currently 104 blood pressure 93/54 patient is 98% on 3 L. At this time patient denies chest pain or shortness of breath. Patient denies any urinary burning or frequency. Patient denies any nausea vomiting or diarrhea Objective - Vital Signs Vital signs: Vital Signs Temp 96.9 F L 11/07/20 08:00 Pulse 85 11/07/20 10:58 Resp 18 11/07/20 03:54 BP 82/50 11/07/20 08:00 Pulse Ox 97 11/07/20 08:00 Intake & Output 11/06/20 11/07/20 11/07/20 18:59 06:59 18:59 Intake Total 480 118 Output Total 200 Balance 480 -200 118 Weight 78.7 kg Intake: Oral 480 118 Output: Urine 200 Other: Voiding Method Bedside Commode Bedside Commode # Voids 1 - Exam In general patient is alert and oriented x 3 in no distress HEENT head normocephalic and atraumatic Neck is supple no JVD no goiter no lymphadenopathy no carotid bruit Chest examination is clear to auscultation no crackles no wheezing Cardiac exam reveals regular heart sounds S1 and S2 no gallops no murmurs Abdomen is soft nontender no organomegaly with normal bowel sounds Extremity exam reveals no edema no cyanosis or clubbing Neurological examination reveals no gross focal deficits - Labs CBC & Chem 7: 11/07/20 08:38 11/07/20 08:38 Labs: Abnormal Lab Results - Last 24 Hours (Table) 11/06/20 11/07/20 11/07/20 Range/Units 07:59 08:38 08:38 RBC 3.14 L (3.80-5.40) m/uL Hgb 8.6 L (11.4-16.0) gm/dL Hct 30.9 L (34.0-46.0) % MCHC 27.8 L (31.0-37.0) g/dL RDW 19.0 H (11.5-15.5) % Chloride 97 L (98-107) mmol/L Carbon Dioxide 37 H (22-30) mmol/L BUN 59 H (7-17) mg/dL Creatinine 2.01 H (0.52-1.04) mg/dL Glucose 110 H (74-99) mg/dL Iron 27 L (50-170) ug/dL % Saturation 8.28 L (12.00-45.00) Total Protein 6.2 L (6.3-8.2) g/dL Assessment and Plan Plan: Acute on chronic diastolic congestive heart failure. cardiology services follo wing. Patient transitioned to oral Lasix Right pleural effusion and right basilar atelectasis Chronic hypoxic and hypercapnic respiratory failure she required BiPAP. Elevated troponin level. Cardiology not suggestive of acute coronary syndrome may be secondary to chronic kidney disease and/or demand ischemia secondary to anemia Significant anemia. Hemoglobin 6.9 requiring 1 unit of PRBCs. Status post EGD and colonoscopy showing nonbleeding ulcers noted in the gastric antrum and duodenum without high risk stigmata for bleeding. Moderate pandiverticulosis. GI recommendation Protonix twice daily upon discharge Underlying history of chronic persistent atrial fibrillation heart rate on presentation mildly elevated at 117. Per cardiology patient not currently on anticoagulation due to history of GI bleed Underlying history of hypertension Underlying history of hypothyroidism Underlying history of hyperlipidemia Underlying history of gout Underlying history of chronic kidney disease Underlying history of depression with anxiety disorder Acute kidney injury. Nephrology services will be consulted. DVT prophylaxis SCDs. GI prophylaxis Protonix GI services cardiology and pulmonary services following Nephrology services consulted Neurology services following
--- NOTE | 2020-11-07 12:36 | PN ---
PROGRESS NOTE Patient is seen for followup for chronic kidney disease and acute kidney injury. She has been diuresed. Diuretics were switched over to oral Lasix yesterday. The patient also has metabolic alkalosis for which she is maintained on Diamox. This has improved. This morning, she is comfortable denies any complaints. No chest pains or shortness of breath. PHYSICAL EXAMINATION: Blood pressure was low 82/50, heart rate of 86 per minute. Patient is afebrile. Examination of the heart S1, S2. Examination of the lungs, bilateral breath sounds are heard. Abdomen is soft, nontender. Examination lower extremities shows no significant edema. SR. PRICING ANALYST exam grossly intact. LAB: Show sodium 140, potassium 4.2, chloride 97, CO2 is 37, BUN 59, serum creatinine 2.0, hemoglobin 8.6 g/dL. ASSESSMENT: 1. Acute kidney injury, cardiorenal, currently stable. IV Lasix was discontinued. The patient is switched over to oral Lasix starting today. 2. Volume overload, significantly improved. 3. Hypokalemia secondary to diuretics, status post replacement. 4. Metabolic alkalosis maintained on Diamox. 5. Acute gastrointestinal bleed, status post EGD and colonoscopy, which showed nonbleeding ulcers and diverticulosis, status post packed RBCs transfusion. 6. Acute hypoxic respiratory failure secondary to volume overload, now resolved. 7. Cardiomyopathy, ejection fraction 45% to 50%. 8. Chronic kidney disease, stage 4. Baseline creatinine 1.5-2 secondary to nephrosclerosis. PLAN: Continue with current dose of oral Lasix for now. MMODL / IJN: [id number] /
[2020-11-07] MEDS: metOLazone 2.5 MG TAB PO SCH (13:00)
[2020-11-07] MEDS: ISOSORBIDE MONONITRATE ER 30 MG TAB.ER.24H PO SCH (13:00)
[2020-11-07 15:16] VITALS: BMI 29.7
--- NOTE | 2020-11-07 15:48 | P.PN ---
Subjective Progress Note Date: 11/07/20 Principal diagnosis: Pulmonary consult dated 10/29/2020. 85-year-old female that we were asked to see because of shortness of breath. The patient was evaluated in the emergency room on October 28. The patient apparently came in with generalized weakness and shortness of breath. She states that her son wanted her to come into the emergency room. She was laying around the house too much. There is no chest pain or chest discomfort. No abdominal pain. No fever or chills. The patient denied any vomiting or diarrhea. There are no genitourinary complaints. The patient is not practically good historian. The patient does have a history of chronic atrial fibrillation, CAD, angina, heart failure, GERD, COPD, hyperlipidemia, myocardial infarction, DJD, and acute on chronic kidney disease. White count of 7.7, hemoglobin 6.9, hematocrit 23.5, platelet count 288,000. Sodium potassium chloride normal. CO2 35. BUN and creatinine were 57 and 1.72 respectively. Troponins were 0.079 and 0.076. Chest x-ray was consistent with CHF, and a right-sided pleural effusion. On 10/30/2020 patient seen in follow-up on selective care unit, she is awake and alert, oriented 3, she is completing her prep for EGD and colonoscopy today, appears to be breathing comfortably, she is on 3 L her pulse ox is 96%. She remains on Lasix at 40 mg every 12 hours, and Zaroxolyn 2.5 mg once weekly schedule, vital signs have been stable. No worsening dyspnea. No new chest x- ray today. Yesterday patient received a unit of packed red blood cells for hemoglobin of 6.9, this morning is hemoglobin is 8.6, white blood cell count is 8.2, platelet count is 313, her reticulocyte count was 3.8, sodium is 138, potassium 3.3, chloride is 95, CO2 33, BUN is 51 and creatinine is 1.62. On 11/07/2020 patient seen in follow-up on selective care unit. She is much more awake and alert today, she is on 4 L of oxygen pulse ox is 97%, she did not wear BiPAP last night, slightly hypotensive, blood pressure is 93/54, and most recent one is 82/50, patient remains in A. fib, she is slightly tachycardic with a rate of 104-110 BPM. Denies shortness of breath, no chest discomfort, no cough, today's chest x-ray has been reviewed showing right pleural effusion and bilateral airspace disease stable in appearance compared to prior exam. Patient's Lasix has been converted to oral Lasix, and she continues on Zaroxolyn once a week. Nephrology is following. Today's labs have been reviewed, BUN is 59, and creatinine is 2.01, relatively stable renal function. Objective - Vital Signs Vital signs: Vital Signs Temp 96.9 F L 11/07/20 08:00 Pulse 85 11/07/20 10:58 Resp 18 11/07/20 03:54 BP 82/50 11/07/20 08:00 Pulse Ox 97 11/07/20 08:00 Intake & Output 11/06/20 11/07/20 11/07/20 18:59 06:59 18:59 Intake Total 480 236 Output Total 200 Balance 480 -200 236 Weight 78.7 kg 78.7 kg Intake: Oral 480 236 Output: Urine 200 Other: Voiding Method Bedside Commode Bedside Commode # Voids 1 # Bowel Movements 1 - Exam GENERAL EXAM: Alert, very pleasant, 85-year-old white female, on 4 L of oxygen with pulse ox of 97%, comfortable in no apparent distress. HEAD: Normocephalic/atraumatic. EYES: Normal reaction of pupils, equal size. Conjunctiva pink, sclera white. NOSE: Clear with pink turbinates. THROAT: No erythema or exudates. NECK: No masses, no JVD, no thyroid enlargement, no adenopathy. CHEST: No chest wall deformity. Symmetrical expansion. LUNGS: Equal air entry with no crackles, wheeze, rhonchi or dullness. CVS: Regular rate and rhythm, normal S1 and S2, no gallops, no murmurs, no rubs ABDOMEN: Soft, nontender. No hepatosplenomegaly, normal bowel sounds, no guarding or rigidity. EXTREMITIES: No clubbing, no edema, no cyanosis, 2+ pulses and upper and lower extremities. MUSCULOSKELETAL: Muscle strength and tone normal. SPINE: No scoliosis or deformity SKIN: No rashes CENTRAL NERVOUS SYSTEM: Alert and oriented -3. No focal deficits, tone is normal in all 4 extremities. PSYCHIATRIC: Alert and oriented -3. Appropriate affect. Intact judgment and insight. - Labs CBC & Chem 7: 11/07/20 08:38 11/07/20 08:38 Labs: Abnormal Lab Results - Last 24 Hours (Table) 11/06/20 11/07/20 11/07/20 Range/Units 07:59 08:38 08:38 RBC 3.14 L (3.80-5.40) m/uL Hgb 8.6 L (11.4-16.0) gm/dL Hct 30.9 L (34.0-46.0) % MCHC 27.8 L (31.0-37.0) g/dL RDW 19.0 H (11.5-15.5) % Chloride 97 L (98-107) mmol/L Carbon Dioxide 37 H (22-30) mmol/L BUN 59 H (7-17) mg/dL Creatinine 2.01 H (0.52-1.04) mg/dL Glucose 110 H (74-99) mg/dL Iron 27 L (50-170) ug/dL % Saturation 8.28 L (12.00-45.00) Total Protein 6.2 L (6.3-8.2) g/dL Assessment and Plan Plan: Assessment: #1. Acute hypoxic respiratory failure related to acute exacerbation of diastolic CHF #2. Acute anemia, status post transfusion with 1 unit of packed red blood cells, awaiting EGD and colonoscopy today #3. Chronic persistent A. fib, not on any chronic anticoagulation related to previous history of GI bleeding #4. Coronary artery disease with previous stenting and CABG 4 #5. Chronic kidney disease #6. Hypertension #7. History of COPD #8. Previous history of pneumonia #9. Former smoker #10. Small right pleural effusion, ultrasound of the chest only showed a 3.7 cm fluid pocket and there was lung tissue noted floating within the pleural fluid. Not amenable to thoracentesis. Plan: Today's chest x-ray has been reviewed Stable findings noted of right pleural effusion, and atelectasis Continue diuretics per nephrology Weaning FiO2 to keep O2 sats patient at or above 90% Did not require BiPAP support in last night Neurology following in regards to altered mental status On today's exam patient is much more alert and awake Patient remains in atrial fibrillation and she is not on any chronic anticoagulation We'll defer the anticoagulation issue to the primary care team I performed a history & physical examination of the patient and discussed their management with my nurse practitioner, Funmilaoy Dee. I reviewed the nurse practitioner's note and agree with the documented findings and plan of care. Lung sounds are positive for diminished breath sounds. The findings and the impression was discussed with the patient. I attest to the documentation by the nurse practitioner. Time with Patient: Less than 30
[2020-11-07] MEDS: MONTELUKAST 10 MG TAB PO SCH (20:24)
--- NOTE | 2020-11-08 00:10 | P.PN ---
Subjective Progress Note Date: 11/07/20 Patient was seen for a follow-up. Patient appears much more comfortable. In no acute distress. Her breathing has improved. She has been started using BiPAP. No new focal symptoms. Telemetry monitoring showing atrial fibrillation. Objective - Vital Signs Vital signs: Vital Signs Temp 97.6 F 11/07/20 19:32 Pulse 95 11/07/20 19:59 Resp 18 11/07/20 19:32 BP 93/59 11/07/20 19:32 Pulse Ox 97 11/07/20 19:47 Intake & Output 11/07/20 11/07/20 11/08/20 06:59 18:59 06:59 Intake Total 476 Output Total 200 350 210 Balance -200 126 -210 Weight 78.7 kg 78.7 kg Intake: Oral 476 Output: Urine 200 350 210 Other: Voiding Method Bedside Commode Bedside Commode # Voids 1 1 # Bowel Movements 1 1 - Exam Patient is alert and awake. Patient knows it is October 2020 and that she is in [facility]. She is hard of hearing. Patient's cranial nerves are normal. On muscle strength testing, her left shoulder is weak for years. Hip flexion is 4+/4-, ankle dorsiflexion 5/3+4-. Sensations are equal. No ataxia. - Labs CBC & Chem 7: 11/07/20 08:38 11/07/20 08:38 Labs: Abnormal Lab Results - Last 24 Hours (Table) 11/07/20 11/07/20 Range/Units 08:38 08:38 RBC 3.14 L (3.80-5.40) m/uL Hgb 8.6 L (11.4-16.0) gm/dL Hct 30.9 L (34.0-46.0) % MCHC 27.8 L (31.0-37.0) g/dL RDW 19.0 H (11.5-15.5) % Chloride 97 L (98-107) mmol/L Carbon Dioxide 37 H (22-30) mmol/L BUN 59 H (7-17) mg/dL Creatinine 2.01 H (0.52-1.04) mg/dL Glucose 110 H (74-99) mg/dL Total Protein 6.2 L (6.3-8.2) g/dL Assessment and Plan Assessment: * Altered mental status likely due to toxic metabolic encephalopathy. Probably multifactorial due to reasons mentioned below. Patient also has trouble underlying cognitive impairment/dementia for the last 2 years, progressively getting worse. * Anemia, chronic renal failure, hypoxemia, hypercapnia, pleural effusion, CHF * Hypothyroidism * B12 and folate deficiency * Chronic atrial fibrillation, currently not on anticoagulation. * COPD * CAD status post bypass graft surgery. * Hyperlipidemia * Obesity Plan: * Patient has probable dementia with superimposed mild delirium/metabolic enceph alopathy from underlying medical/metabolic conditions. Treatment of various medical/metabolic conditions as per IM/other specialties. Patient's mentation has much improved, probably back to baseline. * B12 267 and folate 4.2, both low. Continue B12 and folate replacement. * TSH is normal 0.691, ammonia <9, B6 7 which is borderline and B1 61 normal. We will start B6 replacement. Her last hemoglobin A1c 5.0 on 05/28/2019. * Recommend patient to follow up with neurologist as an outpatient after all medical conditions has resolved to evaluate for underlying dementia and start cognitive enhancing medication. Would hold off on starting cognitive enhancing medication at this time because of ongoing multiple medical conditions. * Patient has atrial fibrillation, but currently not on anticoagulation, perhaps due to recent GI bleed. According to patient's daughter, she was on anticoagulation in the past. However it was taken off of while ago for the reasons that she cannot remember. At present patient is only on aspirin 81 mg. I would defer to PCP/cardiology to consider risks and benefits of anticoagulation, for atrial fibrillation for stroke prevention. * Neurology will sign off. Please reconsult neurology if any concerns.
[2020-11-08] MEDS: PANTOPRAZOLE 40 MG TABLET PO SCH (06:40)
[2020-11-08] MEDS: IPRATROPIUM-ALBUTEROL 3 ML NEB INHALATION SCH ×4 (07:48→19:40)
[2020-11-08 08:10] LABS: Albumin 3.4 g/dL (3.5-5.0); Calcium 9.2 mg/dL (8.4-10.2); Potassium 4.4 mmol/L (3.5-5.1); Total Bilirubin 0.3 mg/dL (0.2-1.3)
[2020-11-08 08:12] LABS: Anisocytosis Slight; Basophils # (A) 0.1 k/uL (0-0.2); Basophils % (A) 1 %; Eosinophils # (A) 0.3 k/uL (0-0.7); Eosinophils % (A) 4 %; HCT 30.6 % (34.0-46.0); HGB 8.4 gm/dL (11.4-16.0); Hypochromasia Marked; Lymphocytes # (A) 1.1 k/uL (1.0-4.8); Lymphocytes % (A) 14 %; MCH 27.3 pg (25.0-35.0); MCHC 27.4 g/dL (31.0-37.0); MCV 99.5 fL (80.0-100.0); Macrocytosis Moderate; Mean Platelet Volume 7.6; Monocytes # (A) 0.3 k/uL (0-1.0); Monocytes % (A) 4 %; Neutrophils # (A) 5.7 k/uL (1.3-7.7); Neutrophils % (A) 76 %; Platelet Count 248 k/uL (150-450); RBC 3.08 m/uL (3.80-5.40); RDW 18.8 % (11.5-15.5); WBC 7.4 k/uL (3.8-10.6)
--- NOTE | 2020-11-08 09:41 | P.PN ---
Subjective Patient is seen in follow-up for chronic kidney disease. Renal function stable. Good urine output. No chest pain or shortness of breath. Vital signs are stable. General: The patient appeared well nourished and normally developed. HEENT: Head exam is unremarkable. Neck is without jugular venous distension. LUNGS: Breath sounds decreased. HEART: Rate and Rhythm are regular. ABDOMEN: Soft, no distention. EXTREMITITES: No edema. Objective - Vital Signs Vital signs: Vital Signs Temp 97.5 F L 11/08/20 04:00 Pulse 94 11/08/20 00:00 Resp 18 11/08/20 04:00 BP 95/60 11/08/20 04:00 Pulse Ox 98 11/08/20 04:00 Intake & Output 11/07/20 11/08/20 11/08/20 18:59 06:59 18:59 Intake Total 476 0 Output Total 350 510 Balance 126 -510 0 Weight 78.7 kg 78.6 kg Intake: Oral 476 0 Output: Urine 350 510 Other: Voiding Method Bedside Commode # Voids 1 1 # Bowel Movements 1 1 - Labs CBC & Chem 7: 11/08/20 07:37 11/08/20 07:37 Labs: Abnormal Lab Results - Last 24 Hours (Table) 11/08/20 11/08/20 Range/Units 07:37 07:37 RBC 3.08 L (3.80-5.40) m/uL Hgb 8.4 L (11.4-16.0) gm/dL Hct 30.6 L (34.0-46.0) % MCHC 27.4 L (31.0-37.0) g/dL RDW 18.8 H (11.5-15.5) % Chloride 97 L (98-107) mmol/L Carbon Dioxide 36 H (22-30) mmol/L BUN 55 H (7-17) mg/dL Creatinine 1.85 H (0.52-1.04) mg/dL Total Protein 6.0 L (6.3-8.2) g/dL Albumin 3.4 L (3.5-5.0) g/dL Assessment and Plan Plan: Assessment: 1. Acute kidney injury mostly prerenal secondary to cardiorenal syndrome. Improved. Creatinine 1.85 today. Urinalysis benign. 2. Chronic kidney disease stage IV with baseline creatinine in the range of 1.5-2 secondary to nephrosclerosis and cardiorenal syndrome. No hydronephrosis noted on kidney ultrasound. Left kidney smaller in size. 3. Acute on chronic systolic CHF with ejection fraction of 45-50% with moderate to severe mitral regurgitation and moderate tricuspid regurgitation. 4. Volume overload. Improved with diuresis. 5. Acute GI bleed status post EGD and colonoscopy which revealed nonbleeding ulcers and diverticulosis. Status post blood transfusion this admission. On Aranesp. 6. Metabolic alkalosis maintained on Diamox. Plan: Maintain oral Lasix and Diamox. Avoid nephrotoxins. Low-salt diet. Continue to monitor renal function and urine output.
[2020-11-08] MEDS: CYANOCOBALAMIN 1,000 MCG/ML 1 ML VIAL IM SCH (09:53)
[2020-11-08] MEDS: acetaZOLAMIDE 250 MG TAB PO SCH ×2 (09:53→20:17)
[2020-11-08] MEDS: ESCITALOPRAM 10 MG TAB PO SCH (09:53)
[2020-11-08] MEDS: FUROSEMIDE 40 MG TAB PO SCH (09:53)
[2020-11-08] MEDS: FOLIC ACID 1 MG TAB PO SCH (09:53)
[2020-11-08] MEDS: allopurinoL 100 MG TAB PO SCH (09:53)
[2020-11-08] MEDS: ISOSORBIDE MONONITRATE ER 30 MG TAB.ER.24H PO SCH (09:54)
[2020-11-08] MEDS: METOPROLOL TARTRATE 50 MG TAB PO SCH ×2 (09:54→20:17)
[2020-11-08] MEDS: LACTATED RINGERS 1,000 ML IV SCH (09:54)
[2020-11-08] MEDS: POTASSIUM CHLORIDE ER 20 MEQ TAB.ER PO SCH ×2 (09:58→20:17)
--- NOTE | 2020-11-08 11:43 | P.PN ---
Subjective Progress Note Date: 11/08/20 11/08/2020, the patient is resting comfortably in bed. She is off the BiPAP. She is on oxygen at 4 L. She has diuresed well. The renal function continues to improve. Note that the patient has a component of chronic hypoxic and hypercapnic respiratory failure. She is known to have COPD. She also has developed a small right-sided pleural effusion that was not an Unna boot for thoracentesis.. She is awake. She is alert. No significant altered mentation with signs of any CO2 narcosis at this point in time. The patient has a hemoglobin of 8.4. White cell count is at 7.4. Serum bicarb is at 36. Creatinine is down to 1.8.She is been essentially bedbound and hasn't been able to do much of activity. Her condition and her health has been progressively declining and the patient has been essentially sleeping most of the time in bed. This is according to the daughter. Objective - Vital Signs Vital signs: Vital Signs Temp 96.4 F L 11/08/20 08:00 Pulse 97 11/08/20 11:32 Resp 18 11/08/20 08:00 BP 92/50 11/08/20 08:00 Pulse Ox 94 L 11/08/20 11:19 Intake & Output 11/07/20 11/08/20 11/08/20 18:59 06:59 18:59 Intake Total 476 0 Output Total 350 510 Balance 126 -510 0 Weight 78.7 kg 78.6 kg Intake: Oral 476 0 Output: Urine 350 510 Other: Voiding Method Bedside Commode Bedside Commode # Voids 1 1 1 # Bowel Movements 1 1 - Exam GENERAL EXAM: Alert, very pleasant, 85-year-old white female, on 3 L of oxygen with pulse ox of 93%, comfortable in no apparent distress. HEAD: Normocephalic/atraumatic. EYES: Normal reaction of pupils, equal size. Conjunctiva pink, sclera white. NOSE: Clear with pink turbinates. THROAT: No erythema or exudates. NECK: No masses, no JVD, no thyroid enlargement, no adenopathy. CHEST: No chest wall deformity. Symmetrical expansion. LUNGS: Equal air entry with no crackles, wheeze, rhonchi or dullness. CVS: Regular rate and rhythm, normal S1 and S2, no gallops, no murmurs, no rubs ABDOMEN: Soft, nontender. No hepatosplenomegaly, normal bowel sounds, no guarding or rigidity. EXTREMITIES: No clubbing, no edema, no cyanosis, 2+ pulses and upper and lower extremities. MUSCULOSKELETAL: Muscle strength and tone normal. SPINE: No scoliosis or deformity SKIN: No rashes CENTRAL NERVOUS SYSTEM: Alert and oriented -3. No focal deficits, tone is normal in all 4 extremities. PSYCHIATRIC: Alert and oriented -3. Appropriate affect. Intact judgment and insight. - Labs CBC & Chem 7: 11/08/20 07:37 11/08/20 07:37 Labs: Abnormal Lab Results - Last 24 Hours (Table) 11/08/20 11/08/20 Range/Units 07:37 07:37 RBC 3.08 L (3.80-5.40) m/uL Hgb 8.4 L (11.4-16.0) gm/dL Hct 30.6 L (34.0-46.0) % MCHC 27.4 L (31.0-37.0) g/dL RDW 18.8 H (11.5-15.5) % Chloride 97 L (98-107) mmol/L Carbon Dioxide 36 H (22-30) mmol/L BUN 55 H (7-17) mg/dL Creatinine 1.85 H (0.52-1.04) mg/dL Total Protein 6.0 L (6.3-8.2) g/dL Albumin 3.4 L (3.5-5.0) g/dL Assessment and Plan Plan: 1 small -sized right-sided pleural effusion probably related to CHF as the patient is known to have diastolic heart failure with an ejection fraction of 45-50%. Doubt any pneumonia at this point in time. White cell count is not elevated and the focus is on 11 is also low. The pleural effusion is small. 2 chronic hypoxic and hypercapnic respiratory failure, compensated this point in time maintained on 3 L of oxygen by nasal cannula. Please refer to the blood gases from yesterday. 3 Anemia, status post 1 unit of PRBCs. 4 Status post EGD and colonoscopy, which revealed nonbleeding ulcers noted in the gastric antrum and duodenum, without high risk for bleeding. In addition, there was mild gastritis, moderate lyman-diverticulosis, and small polyps removed from the cecum and transverse colon. 5 Chronic kidney disease, with a component of an acute kidney injury probably related to diuretics. The patient was given a combination of diuretics the patient is receiving a combination of Lasix, Zaroxolyn Diamox. 6 Chronic atrial fibrillation. 7 History of CAD, with previous catheterization and stenting. 8 Status post bypass grafting. 9 History of gastroesophageal reflux disease. 10 History of hyperlipidemia. 11 Prior history of myocardial infarction. 12 COPD, as the patient did smoke quit smoking more than 40 years ago. 13 chronic hypoxic/hypercapnic respiratory failure, compensated based on the most recent blood gas. Plan: Continue diuretics, currently on oral Lasix Monitor oxygenation, adequate, no signs of any CO2 narcosis BiPAP overnight Clinically stable Monitor renal function will continue to follow
--- NOTE | 2020-11-08 13:41 | P.PN ---
Subjective Progress Note Date: 11/08/20 Gisela Harman is an 85-year-old female who presented to [facility] with a chief complaint of worsening shortness of breath and generalized weakness. Patient stated that her symptoms started month ago however she was feeling much worse in the last few days. Otherwise she denies any complaints there is no fever or chills no headache or dizziness no chest pain no cough no nausea or vomiting no abdominal pain no diarrhea no blood in the stools no burning with urination no frequency or urgency and no hematuria. There is no weakness or numbness in any of the extremities no change in her vision speech or gait. Patient has a known history of persistent atrial fibrillation, history of hypertension, history of hyperlipidemia, history of hypothyroidism, history of gout, history of chronic diastolic congestive heart failure, history of chronic kidney disease stage III with history of cardiorenal syndrome, and history of chronic anemia. Her last admission to the hospital was in February 2019. She was evaluated in the emergency room vital examination on presentation revealed a temperature of 97.6 heart rate 117 respiration 20 blood pressure 100/71 pulse ox 86% on room air, laboratory data revealed a white blood count of 9.0 hemoglobin 7.4 platelet count 290 sodium 136 BUN 57 and creatinine 1.67 troponin level was 0.071 chest x-ray revealed evidence of mild congestive heart failure and right pleural effusion and right basilar atelectasis , patient was admitted to telemetry floor cardiology consultation and pulmonary consultation were requested. Patient is very hard of hearing, history and review of symptoms mostly provided by her son who was at the bedside at the time of my exam, On 10/29/2020 patient is alert resting comfortably in bed. Patient is extremely hard of hearing. 2-D echo is in process. Patient remains on IV Lasix. Hemoglobin 6.9 1 unit PRBCs have been ordered. GI services have been consulted for anemia. Pulmonary and cardiology services also following. At this time patient denies any chest pain. Patient denies nausea vomiting or diarrhea. P atient denies any urinary burning or frequency. On 10/30/2020 patient alert and oriented resting in bed. Plans for EGD and colonoscopy today per GI services status post transfusion of 1 unit of PRBCs. Hemoglobin 8.6. Pulmonary, cardiology and GI service is currently following. At this time patient denies chest pain or shortness breath. Patient denies nausea vomiting or diarrhea. Patient denies urinary burning or frequency On 10/31/2020 patient is alert and oriented and status post EGD and colonoscopy showing nonbleeding ulcers noted in the gastrohepatic antrum and duodenum without high risk stigmata for bleeding. GI recommendation continue Protonix twice daily upon discharge. Hemoglobin today 8.4. Patient has been transitioned to oral Lasix per cardiology services. At this time patient denies chest pain or shortness of breath. Patient denies nausea vomiting or diarrhea. Patient denies any urinary burning or frequency On 11/01/2020 Patient was seen and examined on the medical floor, she is alert and oriented x 3 in no distress, she is complaining of weakness and fatigue otherwise she denies any complaints there is no fever or chills no headache or dizziness no chest pain no shortness of breath no palpitation no cough no nausea or vomiting no abdominal pain no diarrhea no blood in the stools no burning with urination no frequency or urgency and no hematuria, there is no weakness or numbness in any of the extremities no change in vision speech or gait. Blood pr essure was significantly low today Lasix and metoprolol were held will continue to monitor will recheck labs and chest x-ray in a.m. On 11/02/2020 patient alert and oriented 3. Creatinine increasing to 2.16 and bun 51. Nephrology services will be consulted. Blood pressure does seem improved. Patient currently maintained on by mouth Lasix 60 mg. hgb 8.6. Cardiology services following. Repeat chest x-ray showing correlate for CHF with pulmonary vascular congestion slightly worsened in the interval continue moderate right pleural effusion with adjacent atelectasis or consolidation may b e slightly increased. At this time patient denies chest pain or shortness breath. Patient denies nausea vomiting or diarrhea. Patient denies any urinary burning or frequency. On 11/03/2020 Patient was seen and examined on the medical floor, she is alert and oriented x 3 in no distress, she is still complaining of shortness of breath otherwise she denies any complaints there is no fever or chills no headache or dizziness no chest pain no shortness of breath no palpitation no cough no nausea or vomiting no abdominal pain no diarrhea no blood in the stools no burning with urination no frequency or urgency and no hematuria, hemoglobin is down to 8.1 BUN 50 creatinine 2.06 at this time patient is still in marginal condition without significant improvement since admission, will discuss was multiple specialists further treatment steps, will re-consult pulmonary for possible thoracentesis, will recheck in a.m.. On 11/04/2020 Patient was seen and examined on the medical floor, she is alert and oriented x 3 in no distress, she is still complaining of shortness of breath otherwise she denies any complaints there is no fever or chills no headache or dizziness no chest pain no palpitation no cough no nausea or vomiting no abdominal pain no diarrhea no blood in the stools no burning with urination no frequency or urgency and no hematuria, there is no weakness or numbness in any of the extremities no change in vision speech or gait. On 11/05/2020 Patient is resting in bed. Increased lethargy today per nursing staff. patient difficult to arouse. does follow some commands but quickly falls back asleep. creatinine improved today. vitals remain stable. possible plans for thoracentesis per pulmonary. will order head CT and ABG's due to increase lethargy. Patient started on IV lasix yesterday per nephrology. On 11/06/2020 Patient was seen and examined on the medical floor, he is alert and oriented x 3 in no distress, he denies any complaints there is no fever or chills no headache or dizziness no chest pain no shortness of breath no palpitation no cough no nausea or vomiting no abdominal pain no diarrhea no blood in the stools no burning with urination no frequency or urgency and no hematuria, there is no weakness or numbness in any of the extremities no change in vision speech or gait. Patient improved significantly since yesterday, no plans per pulmonary for thoracentesis at this time, will continue to monitor On 11/07/2020 patient is alert and oriented 3 resting in bed. Patient's mentation has improved per nursing staff. Patient was able to wake up a breakfa st follow commands. Creatinine slightly increased to 2.01 bun 59. Patient has been transitioned to oral Lasix. Heart rate currently 104 blood pressure 93/54 patient is 98% on 3 L. At this time patient denies chest pain or shortness of breath. Patient denies any urinary burning or frequency. Patient denies any nausea vomiting or diarrhea On 11/08/2020 patient was seen and examined on the telemetry floor she is alert and oriented 3 in no distress she is complaining of generalized weakness and fatigue otherwise she denies any specific complaints there is no fever or chills no headache or dizziness no chest pain no shortness of breath at rest she has shortness of breath with activity no cough no nausea or vomiting no abdominal pain no diarrhea no blood in the stools no burning with urination no frequency or urgency and no hematuria. At this time will continue with current management , likely patient will need to transfer to [facility] on Tuesday for rehabilitation. Objective - Vital Signs Vital signs: Vital Signs Temp 96.4 F L 11/08/20 08:00 Pulse 97 11/08/20 11:32 Resp 18 11/08/20 08:00 BP 92/50 11/08/20 08:00 Pulse Ox 94 L 11/08/20 11:19 Intake & Output 11/07/20 11/08/20 11/08/20 18:59 06:59 18:59 Intake Total 476 0 Output Total 350 510 Balance 126 -510 0 Weight 78.7 kg 78.6 kg Intake: Oral 476 0 Output: Urine 350 510 Other: Voiding Method Bedside Commode Bedside Commode # Voids 1 1 1 # Bowel Movements 1 1 - Exam In general patient is alert and oriented x 3 in no distress HEENT head normocephalic and atraumatic Neck is supple no JVD no goiter no lymphadenopathy no carotid bruit Chest examination is clear to auscultation no crackles no wheezing Cardiac exam reveals regular heart sounds S1 and S2 no gallops no murmurs Abdomen is soft nontender no organomegaly with normal bowel sounds Extremity exam reveals no edema no cyanosis or clubbing Neurological examination reveals no gross focal deficits - Labs CBC & Chem 7: 11/08/20 07:37 11/08/20 07:37 Labs: Abnormal Lab Results - Last 24 Hours (Table) 11/08/20 11/08/20 Range/Units 07:37 07:37 RBC 3.08 L (3.80-5.40) m/uL Hgb 8.4 L (11.4-16.0) gm/dL Hct 30.6 L (34.0-46.0) % MCHC 27.4 L (31.0-37.0) g/dL RDW 18.8 H (11.5-15.5) % Chloride 97 L (98-107) mmol/L Carbon Dioxide 36 H (22-30) mmol/L BUN 55 H (7-17) mg/dL Creatinine 1.85 H (0.52-1.04) mg/dL Total Protein 6.0 L (6.3-8.2) g/dL Albumin 3.4 L (3.5-5.0) g/dL Assessment and Plan Plan: Acute on chronic diastolic congestive heart failure. cardiology services following. Patient transitioned to oral Lasix Right pleural effusion and right basilar atelectasis Acute on Chronic hypoxic and hypercapnic respiratory failure, she required BiPAP during this admission Elevated troponin level. Cardiology not suggestive of acute coronary syndrome may be secondary to chronic kidney disease and/or demand ischemia secondary to anemia Significant anemia. Hemoglobin 6.9 requiring 1 unit of PRBCs. Status post EGD and colonoscopy showing nonbleeding ulcers noted in the gastric antrum and duodenum without high risk stigmata for bleeding. Moderate pandiverticulosis. GI recommendation Protonix twice daily upon discharge Underlying history of chronic persistent atrial fibrillation heart rate on presentation mildly elevated at 117. Per cardiology patient not currently on anticoagulation due to history of GI bleed Underlying history of hypertension Underlying history of hypothyroidism Underlying history of hyperlipidemia Underlying history of gout Underlying history of chronic kidney disease Underlying history of depression with anxiety disorder Acute kidney injury. Nephrology services will be consulted. DVT prophylaxis SCDs. GI prophylaxis Protonix GI services cardiology and pulmonary services following Nephrology services consulted Neurology services following
[2020-11-08] MEDS: MONTELUKAST 10 MG TAB PO SCH (20:18)
[2020-11-09] MEDS: PANTOPRAZOLE 40 MG TABLET PO SCH (06:40)
[2020-11-09] MEDS: ESCITALOPRAM 10 MG TAB PO SCH (08:27)
[2020-11-09] MEDS: acetaZOLAMIDE 250 MG TAB PO SCH ×2 (08:27→20:59)
[2020-11-09] MEDS: FUROSEMIDE 40 MG TAB PO SCH (08:28)
[2020-11-09] MEDS: METOPROLOL TARTRATE 50 MG TAB PO SCH ×2 (08:28→21:00)
[2020-11-09] MEDS: FOLIC ACID 1 MG TAB PO SCH (08:28)
[2020-11-09] MEDS: allopurinoL 100 MG TAB PO SCH (08:28)
[2020-11-09] MEDS: ISOSORBIDE MONONITRATE ER 30 MG TAB.ER.24H PO SCH (08:28)
[2020-11-09] MEDS: CYANOCOBALAMIN 1,000 MCG/ML 1 ML VIAL IM SCH (08:28)
[2020-11-09] MEDS: POTASSIUM CHLORIDE ER 20 MEQ TAB.ER PO SCH ×2 (08:29→21:00)
[2020-11-09] MEDS: IPRATROPIUM-ALBUTEROL 3 ML NEB INHALATION SCH ×4 (08:37→20:27)
[2020-11-09 08:51] LABS: Albumin 3.5 g/dL (3.5-5.0); Anisocytosis Slight; Basophils # (A) 0.1 k/uL (0-0.2); Basophils % (A) 1 %; Calcium 9.3 mg/dL (8.4-10.2); Eosinophils # (A) 0.3 k/uL (0-0.7); Eosinophils % (A) 5 %; HCT 29.6 % (34.0-46.0); HGB 8.7 gm/dL (11.4-16.0); Hypochromasia Marked; Lymphocytes % (A) 14 %; MCH 28.7 pg (25.0-35.0); MCHC 29.5 g/dL (31.0-37.0); MCV 97.3 fL (80.0-100.0); Macrocytosis Slight; Mean Platelet Volume 7.8; Monocytes # (A) 0.2 k/uL (0-1.0); Monocytes % (A) 3 %; Neutrophils # (A) 5.5 k/uL (1.3-7.7); Neutrophils % (A) 77 %; Platelet Count 232 k/uL (150-450); Potassium 4.2 mmol/L (3.5-5.1); RBC 3.05 m/uL (3.80-5.40); RDW 18.8 % (11.5-15.5); Total Bilirubin 0.4 mg/dL (0.2-1.3); Total Protein 6.2 g/dL (6.3-8.2); WBC 7.2 k/uL (3.8-10.6)
--- NOTE | 2020-11-09 09:00 | P.PN ---
Subjective Patient is seen in follow-up for chronic kidney disease. Renal function stable. Good urine output. No chest pain or shortness of breath. Plan for rehab tomorrow. Vital signs are stable. General: The patient appeared well nourished and normally developed. HEENT: Head exam is unremarkable. Neck is without jugular venous distension. LUNGS: Breath sounds decreased. HEART: Rate and Rhythm are regular. ABDOMEN: Soft, no distention. EXTREMITITES: No edema. Objective - Vital Signs Vital signs: Vital Signs Temp 98.0 F 11/09/20 08:25 Pulse 79 11/09/20 08:46 Resp 18 11/09/20 08:25 BP 97/57 11/09/20 08:25 Pulse Ox 93 L 11/09/20 08:37 Intake & Output 11/08/20 11/09/20 11/09/20 18:59 06:59 18:59 Intake Total 480 Output Total 760 Balance 480 -760 Weight 78.9 kg Intake: Oral 480 Output: Urine 760 Other: Voiding Method Bedside Commode Bedside Commode # Voids 1 1 - Labs CBC & Chem 7: 11/08/20 07:37 11/09/20 07:51 Labs: Abnormal Lab Results - Last 24 Hours (Table) 11/09/20 Range/Units 07:51 Chloride 96 L (98-107) mmol/L Carbon Dioxide 39 H (22-30) mmol/L BUN 51 H (7-17) mg/dL Creatinine 1.91 H (0.52-1.04) mg/dL Glucose 103 H (74-99) mg/dL Total Protein 6.2 L (6.3-8.2) g/dL Assessment and Plan Plan: Assessment: 1. Acute kidney injury mostly prerenal secondary to cardiorenal syndrome. Improved. Creatinine 1.91 today. Urinalysis benign. 2. Chronic kidney disease stage IV with baseline creatinine in the range of 1.5-2 secondary to nephrosclerosis and cardiorenal syndrome. No hydronephrosis noted on kidney ultrasound. Left kidney smaller in size. 3. Acute on chronic systolic CHF with ejection fraction of 45-50% with moderate to severe mitral regurgitation and moderate tricuspid regurgitation. 4. Volume overload. Improved with diuresis. 5. Acute GI bleed status post EGD and colonoscopy which revealed nonbleeding u lcers and diverticulosis. Status post blood transfusion this admission. On Aranesp. 6. Metabolic alkalosis maintained on Diamox. Plan: Maintain oral Lasix and Diamox. Avoid nephrotoxins. Low-salt diet. Continue to monitor renal function and urine output. Plan for discharge to [facility] tomorrow. Follow up outpatient in 1 week.
--- NOTE | 2020-11-09 09:28 | P.PN ---
Subjective Progress Note Date: 11/09/20 Gisela Harman is an 85-year-old female who presented to [facility] with a chief complaint of worsening shortness of breath and generalized weakness. Patient stated that her symptoms started month ago however she was feeling much worse in the last few days. Otherwise she denies any complaints there is no fever or chills no headache or dizziness no chest pain no cough no nausea or vomiting no abdominal pain no diarrhea no blood in the stools no burning with urination no frequency or urgency and no hematuria. There is no weakness or numbness in any of the extremities no change in her vision speech or gait. Patient has a known history of persistent atrial fibrillation, history of hypertension, history of hyperlipidemia, history of hypothyroidism, history of gout, history of chronic diastolic congestive heart failure, history of chronic kidney disease stage III with history of cardiorenal syndrome, and history of chronic anemia. Her last admission to the hospital was in February 2019. She was evaluated in the emergency room vital examination on presentation revealed a temperature of 97.6 heart rate 117 respiration 20 blood pressure 100/71 pulse ox 86% on room air, laboratory data revealed a white blood count of 9.0 hemoglobin 7.4 platelet count 290 sodium 136 BUN 57 and creatinine 1.67 troponin level was 0.071 chest x-ray revealed evidence of mild congestive heart failure and right pleural effusion and right basilar atelectasis , patient was admitted to telemetry floor cardiology consultation and pulmonary consultation were requested. Patient is very hard of hearing, history and review of symptoms mostly provided by her son who was at the bedside at the time of my exam, On 10/29/2020 patient is alert resting comfortably in bed. Patient is extremely hard of hearing. 2-D echo is in process. Patient remains on IV Lasix. Hemoglobin 6.9 1 unit PRBCs have been ordered. GI services have been consulted for anemia. Pulmonary and cardiology services also following. At this time patient denies any chest pain. Patient denies nausea vomiting or diarrhea. P atient denies any urinary burning or frequency. On 10/30/2020 patient alert and oriented resting in bed. Plans for EGD and colonoscopy today per GI services status post transfusion of 1 unit of PRBCs. Hemoglobin 8.6. Pulmonary, cardiology and GI service is currently following. At this time patient denies chest pain or shortness breath. Patient denies nausea vomiting or diarrhea. Patient denies urinary burning or frequency On 10/31/2020 patient is alert and oriented and status post EGD and colonoscopy showing nonbleeding ulcers noted in the gastrohepatic antrum and duodenum without high risk stigmata for bleeding. GI recommendation continue Protonix twice daily upon discharge. Hemoglobin today 8.4. Patient has been transitioned to oral Lasix per cardiology services. At this time patient denies chest pain or shortness of breath. Patient denies nausea vomiting or diarrhea. Patient denies any urinary burning or frequency On 11/01/2020 Patient was seen and examined on the medical floor, she is alert and oriented x 3 in no distress, she is complaining of weakness and fatigue otherwise she denies any complaints there is no fever or chills no headache or dizziness no chest pain no shortness of breath no palpitation no cough no nausea or vomiting no abdominal pain no diarrhea no blood in the stools no burning with urination no frequency or urgency and no hematuria, there is no weakness or numbness in any of the extremities no change in vision speech or gait. Blood pr essure was significantly low today Lasix and metoprolol were held will continue to monitor will recheck labs and chest x-ray in a.m. On 11/02/2020 patient alert and oriented 3. Creatinine increasing to 2.16 and bun 51. Nephrology services will be consulted. Blood pressure does seem improved. Patient currently maintained on by mouth Lasix 60 mg. hgb 8.6. Cardiology services following. Repeat chest x-ray showing correlate for CHF with pulmonary vascular congestion slightly worsened in the interval continue moderate right pleural effusion with adjacent atelectasis or consolidation may b e slightly increased. At this time patient denies chest pain or shortness breath. Patient denies nausea vomiting or diarrhea. Patient denies any urinary burning or frequency. On 11/03/2020 Patient was seen and examined on the medical floor, she is alert and oriented x 3 in no distress, she is still complaining of shortness of breath otherwise she denies any complaints there is no fever or chills no headache or dizziness no chest pain no shortness of breath no palpitation no cough no nausea or vomiting no abdominal pain no diarrhea no blood in the stools no burning with urination no frequency or urgency and no hematuria, hemoglobin is down to 8.1 BUN 50 creatinine 2.06 at this time patient is still in marginal condition without significant improvement since admission, will discuss was multiple specialists further treatment steps, will re-consult pulmonary for possible thoracentesis, will recheck in a.m.. On 11/04/2020 Patient was seen and examined on the medical floor, she is alert and oriented x 3 in no distress, she is still complaining of shortness of breath otherwise she denies any complaints there is no fever or chills no headache or dizziness no chest pain no palpitation no cough no nausea or vomiting no abdominal pain no diarrhea no blood in the stools no burning with urination no frequency or urgency and no hematuria, there is no weakness or numbness in any of the extremities no change in vision speech or gait. On 11/05/2020 Patient is resting in bed. Increased lethargy today per nursing staff. patient difficult to arouse. does follow some commands but quickly falls back asleep. creatinine improved today. vitals remain stable. possible plans for thoracentesis per pulmonary. will order head CT and ABG's due to increase lethargy. Patient started on IV lasix yesterday per nephrology. On 11/06/2020 Patient was seen and examined on the medical floor, he is alert and oriented x 3 in no distress, he denies any complaints there is no fever or chills no headache or dizziness no chest pain no shortness of breath no palpitation no cough no nausea or vomiting no abdominal pain no diarrhea no blood in the stools no burning with urination no frequency or urgency and no hematuria, there is no weakness or numbness in any of the extremities no change in vision speech or gait. Patient improved significantly since yesterday, no plans per pulmonary for thoracentesis at this time, will continue to monitor On 11/07/2020 patient is alert and oriented 3 resting in bed. Patient's mentation has improved per nursing staff. Patient was able to wake up a breakfa st follow commands. Creatinine slightly increased to 2.01 bun 59. Patient has been transitioned to oral Lasix. Heart rate currently 104 blood pressure 93/54 patient is 98% on 3 L. At this time patient denies chest pain or shortness of breath. Patient denies any urinary burning or frequency. Patient denies any nausea vomiting or diarrhea On 11/08/2020 patient was seen and examined on the telemetry floor she is alert and oriented 3 in no distress she is complaining of generalized weakness and fatigue otherwise she denies any specific complaints there is no fever or chills no headache or dizziness no chest pain no shortness of breath at rest she has shortness of breath with activity no cough no nausea or vomiting no abdominal pain no diarrhea no blood in the stools no burning with urination no frequency or urgency and no hematuria. At this time will continue with current management , likely patient will need to transfer to [facility] on Tuesday for rehabilitation. On 11/09/2020 she is alert and oriented 3 currently resting on side of bed working with physical therapy. Patient remains on oral Lasix. Discharge planning to [facility] tomorrow for rehab. Creatinine 1.91 bun 51. Patient remains on 4 L nasal cannula SpO2 98%. Blood pressure 97/57 heart rate 90. At this time patient denies chest pain or shortness breath. Patient denies nausea vomiting or diarrhea. Patient denies any urinary burning or frequency Objective - Vital Signs Vital signs: Vital Signs Temp 98.0 F 11/09/20 08:25 Pulse 79 11/09/20 08:46 Resp 18 11/09/20 08:25 BP 97/57 11/09/20 08:25 Pulse Ox 93 L 11/09/20 08:37 Intake & Output 11/08/20 11/09/20 11/09/20 18:59 06:59 18:59 Intake Total 480 Output Total 760 Balance 480 -760 Weight 78.9 kg Intake: Oral 480 Output: Urine 760 Other: Voiding Method Bedside Commode Bedside Commode # Voids 1 1 - Exam In general patient is alert and oriented x 3 in no distress HEENT head normocephalic and atraumatic Neck is supple no JVD no goiter no lymphadenopathy no carotid bruit Chest examination is clear to auscultation no crackles no wheezing Cardiac exam reveals regular heart sounds S1 and S2 no gallops no murmurs Abdomen is soft nontender no organomegaly with normal bowel sounds Extremity exam reveals no edema no cyanosis or clubbing Neurological examination reveals no gross focal deficits - Labs CBC & Chem 7: 11/09/20 07:51 11/09/20 07:51 Labs: Abnormal Lab Results - Last 24 Hours (Table) 11/09/20 11/09/20 Range/Units 07:51 07:51 RBC 3.05 L (3.80-5.40) m/uL Hgb 8.7 L (11.4-16.0) gm/dL Hct 29.6 L (34.0-46.0) % MCHC 29.5 L (31.0-37.0) g/dL RDW 18.8 H (11.5-15.5) % Chloride 96 L (98-107) mmol/L Carbon Dioxide 39 H (22-30) mmol/L BUN 51 H (7-17) mg/dL Creatinine 1.91 H (0.52-1.04) mg/dL Glucose 103 H (74-99) mg/dL Total Protein 6.2 L (6.3-8.2) g/dL Assessment and Plan Plan: Acute on chronic diastolic congestive heart failure. cardiology services following. Patient transitioned to oral Lasix Right pleural effusion and right basilar atelectasis Acute on Chronic hypoxic and hypercapnic respiratory failure, she required BiPAP during this admission Elevated troponin level. Cardiology not suggestive of acute coronary syndrome may be secondary to chronic kidney disease and/or demand ischemia secondary to anemia Significant anemia. Hemoglobin 6.9 requiring 1 unit of PRBCs. Status post EGD and colonoscopy showing nonbleeding ulcers noted in the gastric antrum and duodenum without high risk stigmata for bleeding. Moderate pandiverticulosis. GI recommendation Protonix twice daily upon discharge Underlying history of chronic persistent atrial fibrillation heart rate on presentation mildly elevated at 117. Per cardiology patient not currently on a nticoagulation due to history of GI bleed Underlying history of hypertension Underlying history of hypothyroidism Underlying history of hyperlipidemia Underlying history of gout Underlying history of chronic kidney disease Underlying history of depression with anxiety disorder Acute kidney injury. Nephrology services will be consulted. DVT prophylaxis SCDs. GI prophylaxis Protonix Nephrology and pulmonary service is following Patient remains on oral Lasix Plans for DC on 11/10/2020 to rehab at [facility]
--- NOTE | 2020-11-09 10:14 | P.PN ---
Subjective Progress Note Date: 11/09/20 The patient is seen today 11/09/2020 in follow-up on the selective care unit. She is currently sitting up in a chair at the bedside. Awake and alert in no acute distress. She is maintaining good O2 saturations in the 90s on 4 L/m per nasal cannula. She received 1 unit of packed red blood cells this admission. Current hemoglobin 8.7. Count 7.2. Platelets 232. 139. Potassium 4.2. Creatinine 1.91. She remains on DuoNeb inhalations, Singulair, oral diuretics. Objective - Vital Signs Vital signs: Vital Signs Temp 98.0 F 11/09/20 08:25 Pulse 79 11/09/20 08:46 Resp 18 11/09/20 08:25 BP 97/57 11/09/20 08:25 Pulse Ox 93 L 11/09/20 08:37 Intake & Output 11/08/20 11/09/20 11/09/20 18:59 06:59 18:59 Intake Total 480 480 Output Total 760 Balance 480 -760 480 Weight 78.9 kg Intake: Oral 480 480 Output: Urine 760 Other: Voiding Method Bedside Commode Bedside Commode Bedside Commode # Voids 1 1 - Exam GENERAL EXAM: Alert, very pleasant, 85-year-old female, up in a chair at the bedside, comfortable in no apparent distress. HEAD: Normocephalic/atraumatic. EYES: Normal reaction of pupils, equal size. Conjunctiva pink, sclera white. NOSE: Clear with pink turbinates. THROAT: No erythema or exudates. NECK: No masses, no JVD, no thyroid enlargement, no adenopathy. CHEST: No chest wall deformity. Symmetrical expansion. LUNGS: Equal air entry with no crackles, wheeze, rhonchi or dullness. CVS: Regular rate and rhythm, normal S1 and S2, no gallops, no murmurs, no rubs ABDOMEN: Soft, nontender. No hepatosplenomegaly, normal bowel sounds, no guarding or rigidity. EXTREMITIES: No clubbing, no edema, no cyanosis, 2+ pulses and upper and lower extremities. MUSCULOSKELETAL: Muscle strength and tone normal. SPINE: No scoliosis or deformity SKIN: No rashes CENTRAL NERVOUS SYSTEM: Alert and oriented -3. No focal deficits, tone is normal in all 4 extremities. PSYCHIATRIC: Alert and oriented -3. Appropriate affect. Intact judgment and insight. - Labs CBC & Chem 7: 11/09/20 07:51 11/09/20 07:51 Labs: Abnormal Lab Results - Last 24 Hours (Table) 11/09/20 11/09/20 Range/Units 07:51 07:51 RBC 3.05 L (3.80-5.40) m/uL Hgb 8.7 L (11.4-16.0) gm/dL Hct 29.6 L (34.0-46.0) % MCHC 29.5 L (31.0-37.0) g/dL RDW 18.8 H (11.5-15.5) % Chloride 96 L (98-107) mmol/L Carbon Dioxide 39 H (22-30) mmol/L BUN 51 H (7-17) mg/dL Creatinine 1.91 H (0.52-1.04) mg/dL Glucose 103 H (74-99) mg/dL Total Protein 6.2 L (6.3-8.2) g/dL Assessment and Plan Assessment: 1 small -sized right-sided pleural effusion probably related to CHF as the patie nt is known to have diastolic heart failure with an ejection fraction of 45-50%. Doubt any pneumonia at this point in time. The pleural effusion is small. 2 chronic hypoxic and hypercapnic respiratory failure, compensated this point in time maintained on 3 L of oxygen by nasal cannula. Please refer to the blood gases from yesterday. 3 Anemia, status post 1 unit of PRBCs. 4 Status post EGD and colonoscopy, which revealed nonbleeding ulcers noted in the gastric antrum and duodenum, without high risk for bleeding. In addition, there was mild gastritis, moderate lyman-diverticulosis, and small polyps removed from the cecum and transverse colon. 5 Chronic kidney disease, with a component of an acute kidney injury probably related to diuretics. The patient was given a combination of diuretics the patient is receiving a combination of Lasix, Zaroxolyn Diamox. 6 Chronic atrial fibrillation. 7 History of CAD, with previous catheterization and stenting. 8 Status post bypass grafting. 9 History of gastroesophageal reflux disease. 10 History of hyperlipidemia. 11 Prior history of myocardial infarction. 12 COPD, as the patient did smoke quit smoking more than 40 years ago. 13 chronic hypoxic/hypercapnic respiratory failure, compensated based on the most recent blood gas. Plan: The patient was seen and evaluated by Dr. Samano Improved from the pulmonary standpoint Continue current treatment plan Discharge planning in place I, the cosigning physician, performed a history & physical examination of the patient. Lungs sounds are clear. Maintaining good O2 saturations in the 90s on 4 L/m per nasal cannula. I discussed the assessment and plan of care with my nurse practitioner, Saniya Branch. I attest to the above note as dictated by her.
[2020-11-09] MEDS: LACTATED RINGERS 1,000 ML IV SCH (10:51)
[2020-11-09] MEDS: DARBEPOETIN ALFA 40 MCG/0.4 ML SYRINGE SQ SCH (12:03)
[2020-11-09] MEDS: MONTELUKAST 10 MG TAB PO SCH (20:59)
[2020-11-10 04:21] VITALS: RESP 18
[2020-11-10] MEDS: PANTOPRAZOLE 40 MG TABLET PO SCH (06:47)
[2020-11-10] MEDS: POTASSIUM CHLORIDE ER 20 MEQ TAB.ER PO SCH (09:00)
[2020-11-10] MEDS: allopurinoL 100 MG TAB PO SCH (09:00)
[2020-11-10] MEDS: acetaZOLAMIDE 250 MG TAB PO SCH (09:00)
[2020-11-10] MEDS: ISOSORBIDE MONONITRATE ER 30 MG TAB.ER.24H PO SCH (09:00)
[2020-11-10] MEDS: METOPROLOL TARTRATE 50 MG TAB PO SCH (09:00)
[2020-11-10] MEDS: ESCITALOPRAM 10 MG TAB PO SCH (09:00)
[2020-11-10] MEDS: IPRATROPIUM-ALBUTEROL 3 ML NEB INHALATION SCH ×3 (09:01→16:28)
[2020-11-10] MEDS: FOLIC ACID 1 MG TAB PO SCH (09:01)
[2020-11-10] MEDS: FUROSEMIDE 40 MG TAB PO SCH (09:01)
--- NOTE | 2020-11-10 09:11 | P.PN ---
Subjective Patient is seen in follow-up for chronic kidney disease. Renal function stable. Good urine output. No chest pain or shortness of breath. On 2 L nasal cannula. Possibly going to rehab today. Vital signs are stable. General: The patient appeared well nourished and normally developed. HEENT: Head exam is unremarkable. Neck is without jugular venous distension. LUNGS: Breath sounds decreased. HEART: Rate and Rhythm are regular. ABDOMEN: Soft, no distention. EXTREMITITES: No edema. Objective - Vital Signs Vital signs: Vital Signs Temp 97.5 F L 11/10/20 04:00 Pulse 110 H 11/10/20 09:03 Resp 18 11/10/20 04:00 BP 93/53 11/10/20 04:00 Pulse Ox 95 11/10/20 04:00 Intake & Output 11/09/20 11/10/20 11/10/20 18:59 06:59 18:59 Intake Total 720 Output Total 500 Balance 720 -500 Weight 78.3 kg Intake: Oral 720 Output: Urine 500 Other: Voiding Method Bedside Commode Bedside Commode # Voids 1 1 # Bowel Movements 1 - Labs CBC & Chem 7: 11/09/20 07:51 11/09/20 07:51 Assessment and Plan Plan: Assessment: 1. Acute kidney injury mostly prerenal secondary to cardiorenal syndrome. Improved. Creatinine 1.91 yesterday. Urinalysis benign. 2. Chronic kidney disease stage IV with baseline creatinine in the range of 1.5-2 secondary to nephrosclerosis and cardiorenal syndrome. No hydronephrosis noted on kidney ultrasound. Left kidney smaller in size. 3. Acute on chronic systolic CHF with ejection fraction of 45-50% with moderate to severe mitral regurgitation and moderate tricuspid regurgitation. 4. Volume overload. Improved with diuresis. 5. Acute GI bleed status post EGD and colonoscopy which revealed nonbleeding ulcers and diverticulosis. Status post blood transfusion this admission. On Aranesp. 6. Metabolic alkalosis maintained on Diamox. Plan: Maintain oral Lasix and Diamox. Avoid nephrotoxins. Low-salt diet. Continue to monitor renal function and urine output. Plan for discharge to [facility] today. Follow up outpatient in 1 week.
[2020-11-10 09:47] LABS: Anisocytosis Slight; Basophils # (A) 0.1 k/uL (0-0.2); Basophils % (A) 1 %; Eosinophils # (A) 0.3 k/uL (0-0.7); Eosinophils % (A) 4 %; HCT 28.8 % (34.0-46.0); HGB 8.6 gm/dL (11.4-16.0); Hypochromasia Marked; Lymphocytes # (A) 0.9 k/uL (1.0-4.8); Lymphocytes % (A) 12 %; MCH 28.3 pg (25.0-35.0); MCHC 29.8 g/dL (31.0-37.0); Macrocytosis Slight; Mean Platelet Volume 8.5; Monocytes # (A) 0.3 k/uL (0-1.0); Monocytes % (A) 4 %; Neutrophils # (A) 6.3 k/uL (1.3-7.7); Neutrophils % (A) 79 %; Platelet Count 231 k/uL (150-450); RBC 3.03 m/uL (3.80-5.40); WBC 7.9 k/uL (3.8-10.6)
[2020-11-10 09:52] LABS: Albumin 3.6 g/dL (3.5-5.0); Calcium 9.4 mg/dL (8.4-10.2); Total Bilirubin 0.4 mg/dL (0.2-1.3); Total Protein 6.3 g/dL (6.3-8.2)
[2020-11-10] MEDS: CYANOCOBALAMIN 1,000 MCG/ML 1 ML VIAL IM SCH (12:46)
[2020-11-10 13:00] VITALS: BP 95/60; PULSE 94; TEMP 97.9
--- NOTE | 2020-11-10 14:10 | P.PN ---
Subjective Progress Note Date: 11/10/20 Principal diagnosis: Pulmonary consult dated 10/29/2020. 85-year-old female that we were asked to see because of shortness of breath. The patient was evaluated in the emergency room on October 28. The patient apparently came in with generalized weakness and shortness of breath. She states that her son wanted her to come into the emergency room. She was laying around the house too much. There is no chest pain or chest discomfort. No abdominal pain. No fever or chills. The patient denied any vomiting or diarrhea. There are no genitourinary complaints. The patient is not practically good historian. The patient does have a history of chronic atrial fibrillation, CAD, angina, heart failure, GERD, COPD, hyperlipidemia, myocardial infarction, DJD, and acute on chronic kidney disease. White count of 7.7, hemoglobin 6.9, hematocrit 23.5, platelet count 288,000. Sodium potassium chloride normal. CO2 35. BUN and creatinine were 57 and 1.72 respectively. Troponins were 0.079 and 0.076. Chest x-ray was consistent with CHF, and a right-sided pleural effusion. On 10/30/2020 patient seen in follow-up on selective care unit, she is awake and alert, oriented 3, she is completing her prep for EGD and colonoscopy today, appears to be breathing comfortably, she is on 3 L her pulse ox is 96%. She remains on Lasix at 40 mg every 12 hours, and Zaroxolyn 2.5 mg once weekly schedule, vital signs have been stable. No worsening dyspnea. No new chest x- ray today. Yesterday patient received a unit of packed red blood cells for hemoglobin of 6.9, this morning is hemoglobin is 8.6, white blood cell count is 8.2, platelet count is 313, her reticulocyte count was 3.8, sodium is 138, potassium 3.3, chloride is 95, CO2 33, BUN is 51 and creatinine is 1.62. On 11/07/2020 patient seen in follow-up on selective care unit. She is much more awake and alert today, she is on 4 L of oxygen pulse ox is 97%, she did not wear BiPAP last night, slightly hypotensive, blood pressure is 93/54, and most recent one is 82/50, patient remains in A. fib, she is slightly tachycardic with a rate of 104-110 BPM. Denies shortness of breath, no chest discomfort, no cough, today's chest x-ray has been reviewed showing right pleural effusion and bilateral airspace disease stable in appearance compared to prior exam. Patient's Lasix has been converted to oral Lasix, and she continues on Zaroxolyn once a week. Nephrology is following. Today's labs have been reviewed, BUN is 59, and creatinine is 2.01, relatively stable renal function. On 11/10/2020 patient seen in follow-up on selective care unit, she is awake and alert, in no acute distress, she is currently sitting up in a recliner, on 2 L of oxygen her pulse ox is 96%. Did not require BiPAP support last night. She is a bit slow to respond, appears to be hard of hearing, she denies any acute distress. Seems a bit encephalopathic. Remains in atrial fibrillation with a controlled rate. She was seen in consultation by neurology and it was thought that her altered mentation was likely due to toxic metabolic encephalopathy. However patient is not on anticoagulation related to history of anemia and previous history of GI bleeding. Her pulmonary perspective she has remained stable, she does have mild crackles at bilateral bases on physical exam. Her ultrasound the chest did not show sizable pleural effusion pocket for thoracentesis. She currently remains on oral Lasix at 40 mg once daily, her weight is down by 0.6 kg in the last 24 hours. Today's labs have been reviewed, with a total count of 7.9, hemoglobin is 8.6, sodium is 139, potassium is 4.0, chloride is 94, CO2 is 37, and renal profile is stable with BUN of 53 creatinine is 1.9 Objective - Vital Signs Vital signs: Vital Signs Temp 97.9 F 11/10/20 12:00 Pulse 106 H 11/10/20 12:44 Resp 18 11/10/20 12:00 BP 95/60 11/10/20 12:00 Pulse Ox 96 11/10/20 12:00 Intake & Output 11/09/20 11/10/20 11/10/20 18:59 06:59 18:59 Intake Total 720 240 Output Total 500 400 Balance 720 -500 -160 Weight 78.3 kg Intake: Oral 720 240 Output: Urine 500 400 Other: Voiding Method Bedside Commode Bedside Commode Bedside Commode # Voids 1 1 # Bowel Movements 1 - Exam GENERAL EXAM: Alert, very pleasant, slow to respond, 85-year-old white female, on 4 L of oxygen with pulse ox of 97%, comfortable in no apparent distress. HEAD: Normocephalic/atraumatic. EYES: Normal reaction of pupils, equal size. Conjunctiva pink, sclera white. NOSE: Clear with pink turbinates. THROAT: No erythema or exudates. NECK: No masses, no JVD, no thyroid enlargement, no adenopathy. CHEST: No chest wall deformity. Symmetrical expansion. LUNGS: Equal air entry with mild bibasilar crackles CVS: Irregular rate and rhythm, normal S1 and S2, no gallops, no murmurs, no rubs ABDOMEN: Soft, nontender. No hepatosplenomegaly, normal bowel sounds, no guarding or rigidity. EXTREMITIES: No clubbing, no edema, no cyanosis, 2+ pulses and upper and lower extremities. MUSCULOSKELETAL: Muscle strength and tone normal. SPINE: No scoliosis or deformity SKIN: No rashes CENTRAL NERVOUS SYSTEM: Alert and oriented -3. No focal deficits, tone is normal in all 4 extremities. PSYCHIATRIC: Alert and oriented -3. Appropriate affect. Intact judgment and insight. - Labs CBC & Chem 7: 11/10/20 08:06 11/10/20 08:06 Labs: Abnormal Lab Results - Last 24 Hours (Table) 11/10/20 11/10/20 Range/Units 08:06 08:06 RBC 3.03 L (3.80-5.40) m/uL Hgb 8.6 L (11.4-16.0) gm/dL Hct 28.8 L (34.0-46.0) % MCHC 29.8 L (31.0-37.0) g/dL RDW 19.0 H (11.5-15.5) % Lymphocytes # 0.9 L (1.0-4.8) k/uL Chloride 94 L (98-107) mmol/L Carbon Dioxide 37 H (22-30) mmol/L BUN 53 H (7-17) mg/dL Creatinine 1.90 H (0.52-1.04) mg/dL Assessment and Plan Plan: Assessment: #1. Acute hypoxic respiratory failure related to acute exacerbation of di astolic CHF #2. Acute anemia, status post transfusion with 1 unit of packed red blood cells, awaiting EGD and colonoscopy today #3. Chronic persistent A. fib, not on any chronic anticoagulation related to previous history of GI bleeding #4. Coronary artery disease with previous stenting and CABG 4 #5. Chronic kidney disease #6. Hypertension #7. History of COPD #8. Previous history of pneumonia #9. Former smoker #10. Small right pleural effusion, ultrasound of the chest only showed a 3.7 cm fluid pocket and there was lung tissue noted floating within the pleural fluid. Not amenable to thoracentesis. #11. Altered mental status, related to toxic metabolic encephalopathy, n eurology is following Plan: Patient has remained stable from pulmonary perspective She is awake, responsive, although she is slow to respond Neurology is following No worsening dyspnea, no fever or chills, No sizable pleural effusion pocket for thoracentesis Recommend continue with medical care Patient will likely need need ECF placement after discharge Social work is following and plan is in place for [facility] the [place] upon discharge From pulmonary perspective patient is stable for discharge to the ECF today I performed a history & physical examination of the patient and discussed their management with my nurse practitioner, Funmilayo Dee. I reviewed the nurse practitioner's note and agree with the documented findings and plan of care. Lung sounds are positive for diminished breath sounds. The findings and the impression was discussed with the patient. I attest to the documentation by the nurse practitioner. Time with Patient: Less than 30
--- NOTE | 2020-11-13 10:10 | P.DS ---
Providers Date of admission: 10/28/20 18:04 Expected date of discharge: 11/10/20 Attending physician: Susan Virk Consults: 10/28/20 18:24 Consult Physician Routine Consulting Provider: Colin Ogden Consult Reason/Comments: Pleural effusion Do you want consulting provider notified?: Yes 11/01/20 15:24 Consult Physician Routine Consulting Provider: Edmundo Green Consult Reason/Comments: hypotension Do you want consulting provider notified?: Yes, Notify in am 11/02/20 09:45 Consult Physician Routine Consulting Provider: Marta Marshall Consult Reason/Comments: Acute kidney injury Do you want consulting provider notified?: Yes 11/03/20 19:39 Consult Physician Routine Consulting Provider: Zhane Samano Consult Reason/Comments: Shortness of breath, pleural effusion Do you want consulting provider notified?: Yes 11/05/20 12:40 Consult Physician Routine Consulting Provider: Gricel Villalpando Consult Reason/Comments: altered mental status Do you want consulting provider notified?: Yes Primary care physician: Tiera Kuhn Hospital Course: Diagnosis on discharge: Acute on chronic diastolic congestive heart failure. cardiology services following. Patient transitioned to oral Lasix Right pleural effusion and right basilar atelectasis Acute on Chronic hypoxic and hypercapnic respiratory failure, she required BiPAP during this admission Elevated troponin level. Cardiology not suggestive of acute coronary syndrome may be secondary to chronic kidney disease and/or demand ischemia secondary to anemia Significant anemia. Hemoglobin 6.9 requiring 1 unit of PRBCs. Status post EGD and colonoscopy showing nonbleeding ulcers noted in the gastric antrum and duodenum without high risk stigmata for bleeding. Moderate pandiverticulosis. GI recommendation Protonix twice daily upon discharge Underlying history of chronic persistent atrial fibrillation heart rate on presentation mildly elevated at 117. Per cardiology patient not currently on anticoagulation due to history of GI bleed Underlying history of hypertension Underlying history of hypothyroidism Underlying history of hyperlipidemia Underlying history of gout Underlying history of chronic kidney disease Underlying history of depression with anxiety disorder Acute kidney injury. Nephrology services will be consulted. Hospital course: Gisela Harman is an 85-year-old female who presented to [facility] with a chief complaint of worsening shortness of breath and generalized weakness. Patient stated that her symptoms started month ago however she was feeling much worse in the last few days. Otherwise she denies any complaints there is no fever or chills no headache or dizziness no chest pain no cough no nausea or vomiting no abdominal pain no diarrhea no blood in the stools no burning with urination no frequency or urgency and no hematuria. There is no weakness or numbness in any of the extremities no change in her vision speech or gait. Patient has a known history of persistent atrial fibrillation, history of hypertension, history of hyperlipidemia, history of hypothyroidism, history of gout, history of chronic diastolic congestive heart failure, history of chronic kidney disease stage III with history of cardiorenal syndrome, and history of chronic anemia. Her last admission to the hospital was in February 2019. She was evaluated in the emergency room vital examination on presentation revealed a temperature of 97.6 heart rate 117 respiration 20 blood pressure 100/71 pulse ox 86% on room air, laboratory data revealed a white blood count of 9.0 hemoglobin 7.4 platelet count 290 sodium 136 BUN 57 and creatinine 1.67 troponin level was 0.071 chest x-ray revealed evidence of mild congestive heart failure and right pleural effusion and right basilar atelectasis , patient was admitted to telemetry floor cardiology consultation and pulmonary consultation were requested. Patient is very hard of hearing, history and review of symptoms mostly provided by her son who was at the bedside at the time of my exam, On 10/29/2020 patient is alert resting comfortably in bed. Patient is extremely hard of hearing. 2-D echo is in process. Patient remains on IV Lasix. Hemoglobin 6.9 1 unit PRBCs have been ordered. GI services have been consulted for anemia. Pulmonary and cardiology services also following. At this time patient denies any chest pain. Patient denies nausea vomiting or diarrhea. Patient denies any urinary burning or frequency. On 10/30/2020 patient alert and oriented resting in bed. Plans for EGD and colonoscopy today per GI services status post transfusion of 1 unit of PRBCs. Hemoglobin 8.6. Pulmonary, cardiology and GI service is currently following. At this time patient denies chest pain or shortness breath. Patient denies nausea vomiting or diarrhea. Patient denies urinary burning or frequency On 10/31/2020 patient is alert and oriented and status post EGD and colonoscopy showing nonbleeding ulcers noted in the gastrohepatic antrum and duodenum without high risk stigmata for bleeding. GI recommendation continue Protonix twice daily upon discharge. Hemoglobin today 8.4. Patient has been transitioned to oral Lasix per cardiology services. At this time patient denies chest pain or shortness of breath. Patient denies nausea vomiting or diarrhea. Patient denies any urinary burning or frequency On 11/01/2020 Patient was seen and examined on the medical floor, she is alert and oriented x 3 in no distress, she is complaining of weakness and fatigue otherwise she denies any complaints there is no fever or chills no headache or dizziness no chest pain no shortness of breath no palpitation no cough no nausea or vomiting no abdominal pain no diarrhea no blood in the stools no burning with urination no frequency or urgency and no hematuria, there is no weakness or numbness in any of the extremities no change in vision speech or gait. Blood pressure was significantly low today Lasix and metoprolol were held will continue to monitor will recheck labs and chest x-ray in a.m. On 11/02/2020 patient alert and oriented 3. Creatinine increasing to 2.16 and bun 51. Nephrology services will be consulted. Blood pressure does seem improved. Patient currently maintained on by mouth Lasix 60 mg. hgb 8.6. Cardiology services following. Repeat chest x-ray showing correlate for CHF with pulmonary vascular congestion slightly worsened in the interval continue moderate right pleural effusion with adjacent atelectasis or consolidation may be slightly increased. At this time patient denies chest pain or shortness breath. Patient denies nausea vomiting or diarrhea. Patient denies any urinary burning or frequency. On 11/03/2020 Patient was seen and examined on the medical floor, she is alert and oriented x 3 in no distress, she is still complaining of shortness of breath otherwise she denies any complaints there is no fever or chills no headache or dizziness no chest pain no shortness of breath no palpitation no cough no nausea or vomiting no abdominal pain no diarrhea no blood in the stools no burning with urination no frequency or urgency and no hematuria, hemoglobin is down to 8.1 BUN 50 creatinine 2.06 at this time patient is still in marginal condition without significant improvement since admission, will discuss was multiple specialists further treatment steps, will re-consult pulmonary for possible thoracentesis, will recheck in a.m.. On 11/04/2020 Patient was seen and examined on the medical floor, she is alert and oriented x 3 in no distress, she is still complaining of shortness of breath otherwise she denies any complaints there is no fever or chills no headache or dizziness no chest pain no palpitation no cough no nausea or vomiting no abdominal pain no diarrhea no blood in the stools no burning with urination no frequency or urgency and no hematuria, there is no weakness or numbness in any of the extremities no change in vision speech or gait. On 11/05/2020 Patient is resting in bed. Increased lethargy today per nursing staff. patient difficult to arouse. does follow some commands but quickly falls back asleep. creatinine improved today. vitals remain stable. possible plans for thoracentesis per pulmonary. will order head CT and ABG's due to increase lethargy. Patient started on IV lasix yesterday per nephrology. On 11/06/2020 Patient was seen and examined on the medical floor, he is alert and oriented x 3 in no distress, he denies any complaints there is no fever or chills no headache or dizziness no chest pain no shortness of breath no palpitation no cough no nausea or vomiting no abdominal pain no diarrhea no blood in the stools no burning with urination no frequency or urgency and no hematuria, there is no weakness or numbness in any of the extremities no change in vision speech or gait. Patient improved significantly since yesterday, no plans per pulmonary for thoracentesis at this time, will continue to monitor On 11/07/2020 patient is alert and oriented 3 resting in bed. Patient's mentation has improved per nursing staff. Patient was able to wake up a breakfast follow commands. Creatinine slightly increased to 2.01 bun 59. Patient has been transitioned to oral Lasix. Heart rate currently 104 blood pressure 93/54 patient is 98% on 3 L. At this time patient denies chest pain or shortness of breath. Patient denies any urinary burning or frequency. Patient denies any nausea vomiting or diarrhea On 11/08/2020 patient was seen and examined on the telemetry floor she is alert and oriented 3 in no distress she is complaining of generalized weakness and fatigue otherwise she denies any specific complaints there is no fever or chills no headache or dizziness no chest pain no shortness of breath at rest she has shortness of breath with activity no cough no nausea or vomiting no abdominal pain no diarrhea no blood in the stools no burning with urination no frequency or urgency and no hematuria. At this time will continue with current management, likely patient will need to transfer to [facility] on Tuesday for rehabilitation. On 11/09/2020 she is alert and oriented 3 currently resting on side of bed working with physical therapy. Patient remains on oral Lasix. Discharge planning to [facility] tomorrow for rehab. Creatinine 1.91 bun 51. Patient remains on 4 L nasal cannula SpO2 98%. Blood pressure 97/57 heart rate 90. At this time patient denies chest pain or shortness breath. Patient denies nausea vomiting or diarrhea. Patient denies any urinary burning or frequency On 11/10/2020 patient was seen and examined on the medical floor she is alert and oriented 3 in no distress patient is laying in bed complaining of generalized fatigue otherwise she denies any complaints there is no fever or chills no headache or dizziness no chest pain no shortness of breath no cough no nausea or vomiting no abdominal pain no diarrhea no blood in the stools no burning with urination no frequency or urgency and no hematuria. At this time patient will be discharged to [facility] for rehab. We will follow her there closely. She will need a follow-up appointment with nephrology in 1 week Patient Condition at Discharge: Stable Plan - Discharge Summary Discharge Rx Participant: No New Discharge Prescriptions: New Darbepoetin Yosi [Aranesp] 40 mcg SQ Q7D syringe acetaZOLAMIDE [Diamox] 250 mg PO BID tab Ipratropium-Albuterol Nebulize [Duoneb 0.5 mg-3 mg/3 ml Soln] 3 ml INHALATION RT-Q4H PRN ml PRN Reason: Dyspnea Folic Acid 1 mg PO DAILY tab Metoprolol Tartrate [Lopressor] 50 mg PO BID tab Furosemide [Lasix] 40 mg PO DAILY tab Pantoprazole [Protonix] 40 mg PO AC-BRKFST tablet. Acetaminophen Tab [Tylenol] 650 mg PO Q6HR PRN tab PRN Reason: Mild Pain Or Fever > 100.5 Cyanocobalamin [Vitamin B-12 Injection] 1,000 mcg IM DAILY vial Continue allopurinoL [Zyloprim] 300 mg PO DAILY Escitalopram [Lexapro] 10 mg PO DAILY Montelukast [Singulair] 10 mg PO HS #30 tab Isosorbide Mononitrate [Isosorbide Mononitrate ER] 30 mg PO DAILY metOLazone [Zaroxolyn] 2.5 mg PO FR Calm Support Supplement 1 cap PO HS Gabapentin [Neurontin] 300 mg PO HS Calm Support Supplement 2 cap PO DAILY@1600 Potassium Chloride ER [K-Dur 20] 20 meq PO BID Discontinued Metoprolol Tartrate [Lopressor] 25 mg PO BID #0 tab Furosemide [Lasix] 40 mg PO DAILY@1400 Furosemide [Lasix] 60 mg PO DAILY@0800 Discharge Medication List Escitalopram [Lexapro] 10 mg PO DAILY 07/20/18 [History] allopurinoL [Zyloprim] 300 mg PO DAILY 07/20/18 [History] Montelukast [Singulair] 10 mg PO HS #30 tab 09/18/18 [Rx] Isosorbide Mononitrate [Isosorbide Mononitrate ER] 30 mg PO DAILY 10/22/18 [History] metOLazone [Zaroxolyn] 2.5 mg PO FR 10/22/18 [History] Calm Support Supplement 1 cap PO HS 10/28/20 [History] Calm Support Supplement 2 cap PO DAILY@1600 10/28/20 [History] Gabapentin [Neurontin] 300 mg PO HS 10/28/20 [History] Potassium Chloride ER [K-Dur 20] 20 meq PO BID 10/28/20 [History] Acetaminophen Tab [Tylenol] 650 mg PO Q6HR PRN tab 11/10/20 [Rx] Cyanocobalamin [Vitamin B-12 Injection] 1,000 mcg IM DAILY vial 11/10/20 [Rx] Darbepoetin Yosi [Aranesp] 40 mcg SQ Q7D syringe 11/10/20 [Rx] Folic Acid 1 mg PO DAILY tab 11/10/20 [Rx] Furosemide [Lasix] 40 mg PO DAILY tab 11/10/20 [Rx] Ipratropium-Albuterol Nebulize [Duoneb 0.5 mg-3 mg/3 ml Soln] 3 ml INHALATION RT-Q4H PRN ml 11/10/20 [Rx] Metoprolol Tartrate [Lopressor] 50 mg PO BID tab 11/10/20 [Rx] Pantoprazole [Protonix] 40 mg PO AC-BRKFST tablet. 11/10/20 [Rx] acetaZOLAMIDE [Diamox] 250 mg PO BID tab 11/10/20 [Rx] Follow up Appointment(s)/Referral(s): Rashawn Parada MD [STAFF PHYSICIAN] - 2 Weeks Tiera Kuhn MD [Primary Care Provider] - 1-2 days Colin Ogden DO [Doctor of Osteopathic Medicine] - 1 Week Discharge Disposition: TRANSFER TO SNF/ECF
== END 2020-11-10 16:37 | DRG 291 ==
LOC: EC 15:50 → 3SCARD 18:04
PROVIDERS: ADMIT Internal Medicine; ATTEND Internal Medicine
PROC: 30233N1 Transfusion of Nonautologous Red Blood Cells into Peripheral Vein, Percutaneous Approach (ICD-10-PCS; 2020-10-29)
PROC: 0DB78ZX Excision of Stomach, Pylorus, Via Natural or Artificial Opening Endoscopic, Diagnostic (ICD-10-PCS; 2020-10-30)
PROC: 0DBH8ZX Excision of Cecum, Via Natural or Artificial Opening Endoscopic, Diagnostic (ICD-10-PCS; 2020-10-30)
PROC: 0DBL8ZX Excision of Transverse Colon, Via Natural or Artificial Opening Endoscopic, Diagnostic (ICD-10-PCS; 2020-10-30)
PROC: 0DB98ZX Excision of Duodenum, Via Natural or Artificial Opening Endoscopic, Diagnostic (ICD-10-PCS; principal; 2020-10-30 13:20)
PROC: 0DB68ZX Excision of Stomach, Via Natural or Artificial Opening Endoscopic, Diagnostic (ICD-10-PCS; 2020-10-30 13:20)
DX: I13.0 Hypertensive heart and chronic kidney disease with heart failure and stage 1 through stage 4 chronic kidney disease, or unspecified chronic kidney disease (principal); K25.4 Chronic or unspecified gastric ulcer with hemorrhage; I50.33 Acute on chronic diastolic (congestive) heart failure; J96.21 Acute and chronic respiratory failure with hypoxia; G92 Toxic encephalopathy; J96.22 Acute and chronic respiratory failure with hypercapnia; K29.71 Gastritis, unspecified, with bleeding; K26.4 Chronic or unspecified duodenal ulcer with hemorrhage; I48.19 Other persistent atrial fibrillation; N18.4 Chronic kidney disease, stage 4 (severe); N17.9 Acute kidney failure, unspecified; E87.3 Alkalosis; J98.11 Atelectasis; I42.9 Cardiomyopathy, unspecified; Z20.822 Contact with and (suspected) exposure to COVID-19; I25.10 Atherosclerotic heart disease of native coronary artery without angina pectoris; J44.9 Chronic obstructive pulmonary disease, unspecified; E78.5 Hyperlipidemia, unspecified; I25.2 Old myocardial infarction; M19.90 Unspecified osteoarthritis, unspecified site; M10.9 Gout, unspecified; Z87.891 Personal history of nicotine dependence; H91.90 Unspecified hearing loss, unspecified ear; Z95.1 Presence of aortocoronary bypass graft; E03.9 Hypothyroidism, unspecified; F32.9 Major depressive disorder, single episode, unspecified; F41.9 Anxiety disorder, unspecified; I95.9 Hypotension, unspecified; D63.8 Anemia in other chronic diseases classified elsewhere; K57.90 Diverticulosis of intestine, part unspecified, without perforation or abscess without bleeding; E87.6 Hypokalemia; F03.90 Unspecified dementia, unspecified severity, without behavioral disturbance, psychotic disturbance, mood disturbance, and anxiety; D50.9 Iron deficiency anemia, unspecified; E66.9 Obesity, unspecified; Z68.29 Body mass index [BMI] 29.0-29.9, adult; Z74.01 Bed confinement status; K21.9 Gastro-esophageal reflux disease without esophagitis; Z87.01 Personal history of pneumonia (recurrent); I27.20 Pulmonary hypertension, unspecified; R77.8 Other specified abnormalities of plasma proteins; K64.8 Other hemorrhoids; E53.8 Deficiency of other specified B group vitamins; I08.1 Rheumatic disorders of both mitral and tricuspid valves; I25.82 Chronic total occlusion of coronary artery; T50.2X5A Adverse effect of carbonic-anhydrase inhibitors, benzothiadiazides and other diuretics, initial encounter; Z90.710 Acquired absence of both cervix and uterus; Z95.5 Presence of coronary angioplasty implant and graft
CPT/HCPCS: 36415; 36600; 43239; 45380; 70450; 71045; 71046; 71250; 76604; 76770; 80053; 81003; 82140; 82607; 82728; 82746; 82805; 83540; 83550; 83605; 83735; 83880; 84145; 84207; 84425; 84443; 84484; 85025; 85045; 85610; 85730; 86850; 86900; 86901; 86920; 87635; 88305; 93005; 93306; 94640; 94660; 94760; 99285

== ENCOUNTER 2020-11-26 14:32 | Inpatient (IN) | payer MEDICARE, BC ==
[2020-11-26 15:21] LABS: Anisocytosis Slight; Basophils % (A) 1 %; Eosinophils # (A) 0.3 k/uL (0-0.7); Eosinophils % (A) 4 %; HCT 32.2 % (34.0-46.0); HGB 9.1 gm/dL (11.4-16.0); Hypochromasia Marked; Lymphocytes # (A) 0.8 k/uL (1.0-4.8); Lymphocytes % (A) 12 %; MCH 28.1 pg (25.0-35.0); MCHC 28.2 g/dL (31.0-37.0); MCV 99.7 fL (80.0-100.0); Macrocytosis Moderate; Mean Platelet Volume 7.8; Monocytes # (A) 0.2 k/uL (0-1.0); Monocytes % (A) 3 %; Neutrophils # (A) 5.8 k/uL (1.3-7.7); Neutrophils % (A) 79 %; Platelet Count 180 k/uL (150-450); RBC 3.23 m/uL (3.80-5.40); RDW 18.3 % (11.5-15.5); WBC 7.3 k/uL (3.8-10.6)
[2020-11-26 15:23] LABS: Appearance,Urine Turbid (Clear); Bacteria,Urine Occasional /hpf; Bilirubin,Urine Negative (Negative); Blood,Urine Small (Negative); Color,Urine Yellow; Glucose,Urine (UA) Negative (Negative); Hyaline Casts,Urine 12 /lpf (0-2); Ketones,Urine Negative (Negative); Leukocyte Esterase,Urine Large (Negative); Mucus,Urine Rare /hpf; Nitrite,Urine Negative (Negative); Protein,Urine Trace (Negative); RBC,Urine 15 /hpf (0-5); Specific Gravity,Urine 1.014 (1.001-1.035); Squamous Epithelial Cell,Urine 12 /hpf (0-4); Urobilinogen,Urine <2.0 mg/dL (<2.0); WBC,Urine >182 /hpf (0-5)
[2020-11-26] MEDS ORDERED: SODIUM CHLORIDE 0.9% 500 ML 500 ML IV STA ×2 (15:26→17:16)
[2020-11-26] MEDS ORDERED: SODIUM CHLORIDE 0.9% 1,000 ML IV STA (15:26)
[2020-11-26 15:30] LABS: Albumin 3.8 g/dL (3.5-5.0); Calcium 9.3 mg/dL (8.4-10.2); Total Bilirubin 0.4 mg/dL (0.2-1.3); Total Protein 6.5 g/dL (6.3-8.2)
--- NOTE | 2020-11-26 15:39 | ED ---
Weakness HPI - General Chief complaint: Weakness Stated complaint: Syncope Time Seen by Provider: 11/26/20 14:45 Source: family, EMS, RN notes reviewed, old records reviewed Mode of arrival: EMS Limitations: altered mental status - History of Present Illness Initial comments: This is a 85-year-old female history of atrial fibrillation multiple other iss ues who is residing currently at a [facility] and found have decreased level consciousness decreased activity sleeping a lot decreased oral intake. She is brought in for evaluation. He also had a recent fall with contusion to left forehead. No other complaints or modifying factors at this time. MD Complaint: generalized weakness - Related Data Home Medications Medication Instructions Recorded Confirmed Escitalopram [Lexapro] 10 mg PO HS@209907/20/18 11/26/20 allopurinoL [Zyloprim] 300 mg PO HS@209907/20/18 11/26/20 Isosorbide Mononitrate [Isosorbide 30 mg PO DAILY@89910/22/18 11/26/20 Mononitrate ER] metOLazone [Zaroxolyn] 2.5 mg PO DAILY@89910/22/18 11/26/20 Gabapentin [Neurontin] 300 mg PO HS@209910/28/20 11/26/20 Potassium Chloride ER [K-Dur 20] 20 meq PO BID@899,209910/28/20 11/26/20 Cyanocobalamin (Vitamin B-12) 1,000 mcg PO DAILY@89911/26/20 11/26/20 [Vitamin B-12] Darbepoetin Yosi [Aranesp] 40 mcg SQ GARRIDO 11/26/20 11/26/20 Folic Acid 1 mg PO HS@209911/26/20 11/26/20 Furosemide [Lasix] 40 mg PO DAILY@59911/26/20 11/26/20 Metoprolol Tartrate [Lopressor] 50 mg PO BID@899,209911/26/20 11/26/20 Montelukast [Singulair] 10 mg PO HS@209911/26/20 11/26/20 Pantoprazole [Protonix] 40 mg PO DAILY@59911/26/20 11/26/20 acetaZOLAMIDE [Diamox] 250 mg PO BID@0600,1400 11/26/20 11/26/20 Previous Rx's Medication Instructions Recorded Acetaminophen Tab [Tylenol] 650 mg PO Q6HR PRN tab 11/10/20 Ipratropium-Albuterol Nebulize 3 ml INHALATION RT-Q4H PRN ml 11/10/20 [Duoneb 0.5 mg-3 mg/3 ml Soln] Allergies Allergy/AdvReac Type Severity Reaction Status Date / Time [id number] Reductase AdvReac Unknown Verified 11/26/20 15:14 Inhibitor Review of Systems ROS Statement: Those systems with pertinent positive or pertinent negative responses have been documented in the HPI. ROS Other: All systems not noted in ROS Statement are negative. Limitations: ROS unobtainable due to patients medical condition Past Medical History Past Medical History: Atrial Fibrillation, Coronary Artery Disease (CAD), Chest Pain / Angina, Heart Failure, COPD, GERD/Reflux, Hyperlipidemia, Myocardial Infarction (ID), Osteoarthritis (OA), Pneumonia, Renal Disease Additional Past Medical History / Comment(s): Pt recently admitted to [facility] on 11/24/18 with dyspnea r/t CHF/cardiomyopathy and acute on chronic kidney disease. Other hx: Chronic Afib, neuropathy bilateral feet, gout bilateral feet, falls, occasional low back pain with bilateral sciatica with L side worse, hypothyroid, epistaxis with blood loss anemia, recent memory impairment Last Myocardial Infarction Date:: 2012 History of Any Multi-Drug Resistant Organisms: None Reported Past Surgical History: Appendectomy, Back Surgery, Cardiac Ablation, Cholecystectomy, Coronary Bypass/CABG, Heart Catheterization With Stent, Hysterectomy Additional Past Surgical History / Comment(s): LOW, 1993 CABG-4 vessels, nasal cauterization, colonoscopy with benign polypectomy, D&C, bilateral cataract removals, R breast benign bx, lumbar laminectomy. Past Anesthesia/Blood Transfusion Reactions: Previous Problems w/ Anesthesia Additional Past Anesthesia/Blood Transfusion Reaction / Comment(s): Pt received blood 02/07/12 without reaction after epistaxis. Date of Last Stent Placement:: 03/2013 Past Psychological History: Anxiety, Depression Smoking Status: Former smoker Past Alcohol Use History: Occasional Past Drug Use History: None Reported - Past Family History Mother Additional Family Medical History / Comment(s): Mother was a heavy drinker. She lived to be in her 80's Father Family Medical History: No Reported History Additional Family Medical History / Comment(s): Father lived to be in his 80's General Exam - General Exam Comments Initial Comments: This is a well-developed sec appearing female who is awake but lethargic does follow some commands Limitations: altered mental status General appearance: alert, in no apparent distress Head exam: Present: atraumatic, normocephalic, normal inspection Eye exam: Present: normal appearance, PERRL, EOMI. Absent: scleral icterus, conjunctival injection, periorbital swelling ENT exam: Present: mucous membranes dry Neck exam: Present: normal inspection. Absent: tenderness, meningismus, lymphadenopathy Respiratory exam: Present: normal lung sounds bilaterally. Absent: respiratory distress, wheezes, rales, rhonchi, stridor Cardiovascular Exam: Present: normal rhythm, tachycardia, irregular rhythm. Absent: systolic murmur, diastolic murmur, rubs, gallop, clicks GI/Abdominal exam: Present: soft, normal bowel sounds. Absent: distended, tenderness, guarding, rebound, rigid Rectal exam: Present: deferred Extremities exam: Present: normal inspection, full ROM, normal capillary refill. Absent: tenderness, pedal edema, joint swelling, calf tenderness Back exam: Present: normal inspection Neurological exam: Present: alert, altered, CN II-XII intact Psychiatric exam: Present: normal affect, normal mood Skin exam: Present: warm, dry, intact, normal color. Absent: rash Course Vital Signs 11/26/20 11/26/20 11/26/20 14:34 14:36 14:57 Temperature 98.4 F Pulse Rate 105 H 91 Respiratory 16 16 Rate Blood Pressure 87/55 86/55 O2 Sat by Pulse 95 93 L 95 Oximetry 11/26/20 11/26/20 11/26/20 15:00 15:30 16:20 Temperature Pulse Rate 103 H 106 H 97 Respiratory 19 17 16 Rate Blood Pressure 86/55 90/55 96/55 O2 Sat by Pulse 94 L 97 94 L Oximetry EKG Findings - EKG Results: EKG: interpreted by SANDRA (Atrial fibrillation rate is 93 QRS 114 QT/QTC 332/437 right bundle-branch block nonspecific T-wave configuration) Medical Decision Making - Medical Decision Making I did discuss the findings with the patient family members as well as with Dr. Virk. Patient be admitted place an IV fluids IV antibiotics patient is a no code per advanced directives. - Lab Data Result diagrams: 11/26/20 15:01 11/26/20 15:01 Lab Results 11/26/20 11/26/20 11/26/20 Range/Units 15: 15: 15:01 WBC 7.3 (3.8-10.6) k/uL RBC 3.23 L (3.80-5.40) m/uL Hgb 9.1 L (11.4-16.0) gm/dL Hct 32.2 L (34.0-46.0) % MCV 99.7 (80.0-100.0) fL MCH 28.1 (25.0-35.0) pg MCHC 28.2 L (31.0-37.0) g/dL RDW 18.3 H (11.5-15.5) % Plt Count 180 (150-450) k/uL MPV 7.8 Neutrophils % 79 % Lymphocytes % 12 % Monocytes % 3 % Eosinophils % 4 % Basophils % 1 % Neutrophils # 5.8 (1.3-7.7) k/uL Lymphocytes # 0.8 L (1.0-4.8) k/uL Monocytes # 0.2 (0-1.0) k/uL Eosinophils # 0.3 (0-0.7) k/uL Basophils # 0.0 (0-0.2) k/uL Hypochromasia Marked Anisocytosis Slight Macrocytosis Moderate PT (9.0-12.0) sec INR (<1.2) APTT (22.0-30.0) sec Sodium 139 (137-145) mmol/L Potassium 6.0 H (3.5-5.1) mmol/L Chloride 105 (98-107) mmol/L Carbon Dioxide 28 (22-30) mmol/L Anion Gap 6 mmol/L BUN 68 H (7-17) mg/dL Creatinine 2.49 H (0.52-1.04) mg/dL Est GFR (CKD-EPI)AfAm 20 (>60 ml/min/1.73 sqM) Est GFR (CKD-EPI)NonAf 17 (>60 ml/min/1.73 sqM) Glucose 116 H (74-99) mg/dL Plasma Lactic Acid Prem (0.7-2.0) mmol/L Calcium 9.3 (8.4-10.2) mg/dL Magnesium (1.6-2.3) mg/dL Total Bilirubin 0.4 (0.2-1.3) mg/dL AST 33 (14-36) U/L ALT 7 (4-34) U/L Alkaline Phosphatase 91 (38-126) U/L Creatine Kinase (30-135) U/L Troponin I (0.000-0.034) ng/mL Total Protein 6.5 (6.3-8.2) g/dL Albumin 3.8 (3.5-5.0) g/dL Urine Color Yellow Urine Appearance Turbid H (Clear) Urine pH 5.0 (5.0-8.0) Ur Specific [place] 1.014 (1.001-1.035) Urine Protein Trace H (Negative) Urine Glucose (UA) Negative (Negative) Urine Ketones Negative (Negative) Urine Blood Small H (Negative) Urine Nitrite Negative (Negative) Urine Bilirubin Negative (Negative) Urine Urobilinogen <2.0 (<2.0) mg/dL Ur Leukocyte Esterase Large H (Negative) Urine RBC 15 H (0-5) /hpf Urine WBC >182 H (0-5) /hpf Urine WBC Clumps Occasional H (None) /hpf Ur Squamous Epith Cells 12 H (0-4) /hpf Urine Bacteria Occasional H (None) /hpf Hyaline Casts 12 H (0-2) /lpf Urine Mucus Rare H (None) /hpf 11/26/20 11/26/20 11/26/20 Range/Units 15:01 15:01 15:01 WBC (3.8-10.6) k/uL RBC (3.80-5.40) m/uL Hgb (11.4-16.0) gm/dL Hct (34.0-46.0) % MCV (80.0-100.0) fL MCH (25.0-35.0) pg MCHC (31.0-37.0) g/dL RDW (11.5-15.5) % Plt Count (150-450) k/uL MPV Neutrophils % % Lymphocytes % % Monocytes % % Eosinophils % % Basophils % % Neutrophils # (1.3-7.7) k/uL Lymphocytes # (1.0-4.8) k/uL Monocytes # (0-1.0) k/uL Eosinophils # (0-0.7) k/uL Basophils # (0-0.2) k/uL Hypochromasia Anisocytosis Macrocytosis PT 10.4 (9.0-12.0) sec INR 1.0 (<1.2) APTT 23.4 (22.0-30.0) sec Sodium (137-145) mmol/L Potassium (3.5-5.1) mmol/L Chloride (98-107) mmol/L Carbon Dioxide (22-30) mmol/L Anion Gap mmol/L BUN (7-17) mg/dL Creatinine (0.52-1.04) mg/dL Est GFR (CKD-EPI)AfAm (>60 ml/min/1.73 sqM) Est GFR (CKD-EPI)NonAf (>60 ml/min/1.73 sqM) Glucose (74-99) mg/dL Plasma Lactic Acid Prem 0.8 (0.7-2.0) mmol/L Calcium (8.4-10.2) mg/dL Magnesium 2.8 H (1.6-2.3) mg/dL Total Bilirubin (0.2-1.3) mg/dL AST (14-36) U/L ALT (4-34) U/L Alkaline Phosphatase (38-126) U/L Creatine Kinase 40 (30-135) U/L Troponin I (0.000-0.034) ng/mL Total Protein (6.3-8.2) g/dL Albumin (3.5-5.0) g/dL Urine Color Urine Appearance (Clear) Urine pH (5.0-8.0) Ur Specific [place] (1.001-1.035) Urine Protein (Negative) Urine Glucose (UA) (Negative) Urine Ketones (Negative) Urine Blood (Negative) Urine Nitrite (Negative) Urine Bilirubin (Negative) Urine Urobilinogen (<2.0) mg/dL Ur Leukocyte Esterase (Negative) Urine RBC (0-5) /hpf Urine WBC (0-5) /hpf Urine WBC Clumps (None) /hpf Ur Squamous Epith Cells (0-4) /hpf Urine Bacteria (None) /hpf Hyaline Casts (0-2) /lpf Urine Mucus (None) /hpf 11/26/20 Range/Units 15:35 WBC (3.8-10.6) k/uL RBC (3.80-5.40) m/uL Hgb (11.4-16.0) gm/dL Hct (34.0-46.0) % MCV (80.0-100.0) fL MCH (25.0-35.0) pg MCHC (31.0-37.0) g/dL RDW (11.5-15.5) % Plt Count (150-450) k/uL MPV Neutrophils % % Lymphocytes % % Monocytes % % Eosinophils % % Basophils % % Neutrophils # (1.3-7.7) k/uL Lymphocytes # (1.0-4.8) k/uL Monocytes # (0-1.0) k/uL Eosinophils # (0-0.7) k/uL Basophils # (0-0.2) k/uL Hypochromasia Anisocytosis Macrocytosis PT (9.0-12.0) sec INR (<1.2) APTT (22.0-30.0) sec Sodium (137-145) mmol/L Potassium (3.5-5.1) mmol/L Chloride (98-107) mmol/L Carbon Dioxide (22-30) mmol/L Anion Gap mmol/L BUN (7-17) mg/dL Creatinine (0.52-1.04) mg/dL Est GFR (CKD-EPI)AfAm (>60 ml/min/1.73 sqM) Est GFR (CKD-EPI)NonAf (>60 ml/min/1.73 sqM) Glucose (74-99) mg/dL Plasma Lactic Acid Prem (0.7-2.0) mmol/L Calcium (8.4-10.2) mg/dL Magnesium (1.6-2.3) mg/dL Total Bilirubin (0.2-1.3) mg/dL AST (14-36) U/L ALT (4-34) U/L Alkaline Phosphatase (38-126) U/L Creatine Kinase (30-135) U/L Troponin I 0.257 H* (0.000-0.034) ng/mL Total Protein (6.3-8.2) g/dL Albumin (3.5-5.0) g/dL Urine Color Urine Appearance (Clear) Urine pH (5.0-8.0) Ur Specific [place] (1.001-1.035) Urine Protein (Negative) Urine Glucose (UA) (Negative) Urine Ketones (Negative) Urine Blood (Negative) Urine Nitrite (Negative) Urine Bilirubin (Negative) Urine Urobilinogen (<2.0) mg/dL Ur Leukocyte Esterase (Negative) Urine RBC (0-5) /hpf Urine WBC (0-5) /hpf Urine WBC Clumps (None) /hpf Ur Squamous Epith Cells (0-4) /hpf Urine Bacteria (None) /hpf Hyaline Casts (0-2) /lpf Urine Mucus (None) /hpf - Radiology Data Radiology results: report reviewed (Imaging reviewed no acute findings.), image reviewed Disposition Clinical Impression: Acute kidney injury, Dehydration, NSTEMI (non-ST elevated myocardial infarction), Failure to thrive Disposition: ADMITTED IP TO THIS HOSP Condition: Fair Referrals: Susan Virk MD [Primary Care Provider] - 1-2 days
[2020-11-26 16:03] LABS: Partial Thromboplastin Time 23.4 sec (22.0-30.0); Prothrombin Time 10.4 sec (9.0-12.0)
--- NOTE | 2020-11-26 16:03 | CT ---
EXAMINATION TYPE: CT brain wo con DATE OF EXAM: 11/26/2020 COMPARISON: 11/05/2020 HISTORY: Fall with injury CT DLP: 1158.[address] of the brain was performed. The ventricles, basal cisterns and sulci overlying the cerebral convexities demonstrate mild enlargem ent. There is no evidence for intracranial hemorrhage or sulcal effacement. There is decreased attenuation about the periventricular white matter and deep white matter of both c erebral hemispheres, compatible with chronic small vessel ischemia. Differential diagnosis does inclu de demyelination. No mass effects are seen.No midline shift. Osseous calvarium is intact. If symptoms persist consider MRI. IMPRESSION: 1. Age related atrophic and chronic small vessel ischemic change without acute intracranial process s een at this time.
[2020-11-26 16:06] LABS: Magnesium 2.8 mg/dL (1.6-2.3)
--- NOTE | 2020-11-26 16:17 | XR ---
EXAMINATION TYPE: XR chest 2V DATE OF EXAM: 11/26/2020 COMPARISON: 11/08/2019 HISTORY: Shortness of breath TECHNIQUE: Frontal and lateral views of the chest are obtained. FINDINGS: Scattered senescent parenchymal changes noted. Hyperinflation compatible with COPD. Pulmonary venous congestion with scattered areas of infiltrate or effusion improved since prior exami nation. Heart size is stable. Mediastinal structures are stable and grossly unremarkable. No evidence for hilar prominence. Degenerative changes dorsal spine. IMPRESSION: 1. Features of congestive failure improved from prior study.
[2020-11-26] MEDS ORDERED: NITROGLYCERIN SL TABS 0.4 MG TAB SUBLINGUAL PRN (17:11)
--- NOTE | 2020-11-26 17:12 | ED ---
Medical Decision Making - Lab Data Result diagrams: 11/26/20 15:01 11/26/20 15:01 Lab Results 11/26/20 11/26/20 11/26/20 Range/Units 15:01 15:01 15:01 WBC 7.3 (3.8-10.6) k/uL RBC 3.23 L (3.80-5.40) m/uL Hgb 9.1 L (11.4-16.0) gm/dL Hct 32.2 L (34.0-46.0) % MCV 99.7 (80.0-100.0) fL MCH 28.1 (25.0-35.0) pg MCHC 28.2 L (31.0-37.0) g/dL RDW 18.3 H (11.5-15.5) % Plt Count 180 (150-450) k/uL MPV 7.8 Neutrophils % 79 % Lymphocytes % 12 % Monocytes % 3 % Eosinophils % 4 % Basophils % 1 % Neutrophils # 5.8 (1.3-7.7) k/uL Lymphocytes # 0.8 L (1.0-4.8) k/uL Monocytes # 0.2 (0-1.0) k/uL Eosinophils # 0.3 (0-0.7) k/uL Basophils # 0.0 (0-0.2) k/uL Hypochromasia Marked Anisocytosis Slight Macrocytosis Moderate PT (9.0-12.0) sec INR (<1.2) APTT (22.0-30.0) sec Sodium 139 (137-145) mmol/L Potassium 6.0 H (3.5-5.1) mmol/L Chloride 105 (98-107) mmol/L Carbon Dioxide 28 (22-30) mmol/L Anion Gap 6 mmol/L BUN 68 H (7-17) mg/dL Creatinine 2.49 H (0.52-1.04) mg/dL Est GFR (CKD-EPI)AfAm 20 (>60 ml/min/1.73 sqM) Est GFR (CKD-EPI)NonAf 17 (>60 ml/min/1.73 sqM) Glucose 116 H (74-99) mg/dL Plasma Lactic Acid Prem (0.7-2.0) mmol/L Calcium 9.3 (8.4-10.2) mg/dL Magnesium (1.6-2.3) mg/dL Total Bilirubin 0.4 (0.2-1.3) mg/dL AST 33 (14-36) U/L ALT 7 (4-34) U/L Alkaline Phosphatase 91 (38-126) U/L Creatine Kinase (30-135) U/L Troponin I (0.000-0.034) ng/mL Total Protein 6.5 (6.3-8.2) g/dL Albumin 3.8 (3.5-5.0) g/dL Urine Color Yellow Urine Appearance Turbid H (Clear) Urine pH 5.0 (5.0-8.0) Ur Specific [place] 1.014 (1.001-1.035) Urine Protein Trace H (Negative) Urine Glucose (UA) Negative (Negative) Urine Ketones Negative (Negative) Urine Blood Small H (Negative) Urine Nitrite Negative (Negative) Urine Bilirubin Negative (Negative) Urine Urobilinogen <2.0 (<2.0) mg/dL Ur Leukocyte Esterase Large H (Negative) Urine RBC 15 H (0-5) /hpf Urine WBC >182 H (0-5) /hpf Urine WBC Clumps Occasional H (None) /hpf Ur Squamous Epith Cells 12 H (0-4) /hpf Urine Bacteria Occasional H (None) /hpf Hyaline Casts 12 H (0-2) /lpf Urine Mucus Rare H (None) /hpf 11/26/20 11/26/20 11/26/20 Range/Units 15:01 15:01 15:01 WBC (3.8-10.6) k/uL RBC (3.80-5.40) m/uL Hgb (11.4-16.0) gm/dL Hct (34.0-46.0) % MCV (80.0-100.0) fL MCH (25.0-35.0) pg MCHC (31.0-37.0) g/dL RDW (11.5-15.5) % Plt Count (150-450) k/uL MPV Neutrophils % % Lymphocytes % % Monocytes % % Eosinophils % % Basophils % % Neutrophils # (1.3-7.7) k/uL Lymphocytes # (1.0-4.8) k/uL Monocytes # (0-1.0) k/uL Eosinophils # (0-0.7) k/uL Basophils # (0-0.2) k/uL Hypochromasia Anisocytosis Macrocytosis PT 10.4 (9.0-12.0) sec INR 1.0 (<1.2) APTT 23.4 (22.0-30.0) sec Sodium (137-145) mmol/L Potassium (3.5-5.1) mmol/L Chloride (98-107) mmol/L Carbon Dioxide (22-30) mmol/L Anion Gap mmol/L BUN (7-17) mg/dL Creatinine (0.52-1.04) mg/dL Est GFR (CKD-EPI)AfAm (>60 ml/min/1.73 sqM) Est GFR (CKD-EPI)NonAf (>60 ml/min/1.73 sqM) Glucose (74-99) mg/dL Plasma Lactic Acid Prem 0.8 (0.7-2.0) mmol/L Calcium (8.4-10.2) mg/dL Magnesium 2.8 H (1.6-2.3) mg/dL Total Bilirubin (0.2-1.3) mg/dL AST (14-36) U/L ALT (4-34) U/L Alkaline Phosphatase (38-126) U/L Creatine Kinase 40 (30-135) U/L Troponin I (0.000-0.034) ng/mL Total Protein (6.3-8.2) g/dL Albumin (3.5-5.0) g/dL Urine Color Urine Appearance (Clear) Urine pH (5.0-8.0) Ur Specific [place] (1.001-1.035) Urine Protein (Negative) Urine Glucose (UA) (Negative) Urine Ketones (Negative) Urine Blood (Negative) Urine Nitrite (Negative) Urine Bilirubin (Negative) Urine Urobilinogen (<2.0) mg/dL Ur Leukocyte Esterase (Negative) Urine RBC (0-5) /hpf Urine WBC (0-5) /hpf Urine WBC Clumps (None) /hpf Ur Squamous Epith Cells (0-4) /hpf Urine Bacteria (None) /hpf Hyaline Casts (0-2) /lpf Urine Mucus (None) /hpf 11/26/20 Range/Units 15:35 WBC (3.8-10.6) k/uL RBC (3.80-5.40) m/uL Hgb (11.4-16.0) gm/dL Hct (34.0-46.0) % MCV (80.0-100.0) fL MCH (25.0-35.0) pg MCHC (31.0-37.0) g/dL RDW (11.5-15.5) % Plt Count (150-450) k/uL MPV Neutrophils % % Lymphocytes % % Monocytes % % Eosinophils % % Basophils % % Neutrophils # (1.3-7.7) k/uL Lymphocytes # (1.0-4.8) k/uL Monocytes # (0-1.0) k/uL Eosinophils # (0-0.7) k/uL Basophils # (0-0.2) k/uL Hypochromasia Anisocytosis Macrocytosis PT (9.0-12.0) sec INR (<1.2) APTT (22.0-30.0) sec Sodium (137-145) mmol/L Potassium (3.5-5.1) mmol/L Chloride (98-107) mmol/L Carbon Dioxide (22-30) mmol/L Anion Gap mmol/L BUN (7-17) mg/dL Creatinine (0.52-1.04) mg/dL Est GFR (CKD-EPI)AfAm (>60 ml/min/1.73 sqM) Est GFR (CKD-EPI)NonAf (>60 ml/min/1.73 sqM) Glucose (74-99) mg/dL Plasma Lactic Acid Prem (0.7-2.0) mmol/L Calcium (8.4-10.2) mg/dL Magnesium (1.6-2.3) mg/dL Total Bilirubin (0.2-1.3) mg/dL AST (14-36) U/L ALT (4-34) U/L Alkaline Phosphatase (38-126) U/L Creatine Kinase (30-135) U/L Troponin I 0.257 H* (0.000-0.034) ng/mL Total Protein (6.3-8.2) g/dL Albumin (3.5-5.0) g/dL Urine Color Urine Appearance (Clear) Urine pH (5.0-8.0) Ur Specific [place] (1.001-1.035) Urine Protein (Negative) Urine Glucose (UA) (Negative) Urine Ketones (Negative) Urine Blood (Negative) Urine Nitrite (Negative) Urine Bilirubin (Negative) Urine Urobilinogen (<2.0) mg/dL Ur Leukocyte Esterase (Negative) Urine RBC (0-5) /hpf Urine WBC (0-5) /hpf Urine WBC Clumps (None) /hpf Ur Squamous Epith Cells (0-4) /hpf Urine Bacteria (None) /hpf Hyaline Casts (0-2) /lpf Urine Mucus (None) /hpf Disposition Clinical Impression: Acute kidney injury, Dehydration, NSTEMI (non-ST elevated myocardial infarction), Failure to thrive, UTI (urinary tract infection) Disposition: ADMITTED IP TO THIS HOSP Condition: Fair Referrals: Susan Virk MD [Primary Care Provider] - 1-2 days
[2020-11-26] MEDS ORDERED: ACETAMINOPHEN TAB 325 MG TAB PO PRN (17:14)
[2020-11-26] MEDS ORDERED: cefTRIAXone IN SWFI 1,000 MG/10 ML SYRINGE IVP STA (17:15)
[2020-11-26] MEDS ORDERED: SODIUM POLYSTYRENE SULFONATE 15 GM/60 ML BOTTLE PO STA (19:31)
[2020-11-26] MEDS: METOPROLOL TARTRATE 50 MG TAB PO SCH (21:47)
[2020-11-26] MEDS: GABAPENTIN 300 MG CAP PO SCH (21:47)
[2020-11-26] MEDS: ESCITALOPRAM 10 MG TAB PO SCH (21:48)
[2020-11-26] MEDS: allopurinoL 300 MG TAB PO SCH (21:48)
[2020-11-26] MEDS: FOLIC ACID 1 MG TAB PO SCH (21:48)
[2020-11-26] MEDS: MONTELUKAST 10 MG TAB PO SCH (21:49)
[2020-11-27] MEDS: PANTOPRAZOLE 40 MG TABLET PO SCH (05:36)
[2020-11-27] MEDS: acetaZOLAMIDE 250 MG TAB PO SCH ×2 (05:38→14:25)
[2020-11-27] MEDS: IPRATROPIUM-ALBUTEROL 3 ML NEB INHALATION PRN ×2 (07:37→16:27)
[2020-11-27] MEDS: metOLazone 2.5 MG TAB PO SCH (09:35)
[2020-11-27] MEDS: ISOSORBIDE MONONITRATE ER 30 MG TAB.ER.24H PO SCH (09:35)
[2020-11-27] MEDS: CYANOCOBALAMIN 500 MCG TAB PO SCH (09:35)
[2020-11-27] MEDS: METOPROLOL TARTRATE 50 MG TAB PO SCH ×2 (09:35→20:49)
[2020-11-27] MEDS: ASPIRIN 325 MG TAB PO SCH (09:35)
[2020-11-27 09:53] LABS: Albumin 3.7 g/dL (3.5-5.0); Calcium 9.2 mg/dL (8.4-10.2); Magnesium 2.6 mg/dL (1.6-2.3); Potassium 5.2 mmol/L (3.5-5.1); Total Bilirubin 0.2 mg/dL (0.2-1.3); Total Protein 6.4 g/dL (6.3-8.2)
[2020-11-27 11:46] LABS: Amorphous Sediment,Urine Rare /hpf; Appearance,Urine Cloudy (Clear); Bacteria,Urine Rare /hpf; Bilirubin,Urine Negative (Negative); Blood,Urine Large (Negative); Color,Urine Yellow; Glucose,Urine (UA) Negative (Negative); Hyaline Casts,Urine 9 /lpf (0-2); Ketones,Urine Negative (Negative); Leukocyte Esterase,Urine Large (Negative); Mucus,Urine Rare /hpf; Nitrite,Urine Negative (Negative); Protein,Urine 1+ (Negative); RBC,Urine >182 /hpf (0-5); Specific Gravity,Urine 1.014 (1.001-1.035); Squamous Epithelial Cell,Urine 2 /hpf (0-4); Urobilinogen,Urine <2.0 mg/dL (<2.0); WBC,Urine >182 /hpf (0-5)
[2020-11-27 15:49] LABS: % Iron Saturation 6.05 (12.00-45.00); Chol/HDL Ratio 3.3; LDL Cholesterol,Calculated 96.6 mg/dL (0.0-131.0); VLDL Calculation 25.4 mg/dL (5.00-40.00)
--- NOTE | 2020-11-27 17:00 | P.HPIM ---
History of Present Illness H&P Date: 11/27/20 Gisela Harman, is an 85 year old female who presented to [facility] emergency room with a chief complaint of generalized weakness and worsening mental status with increased somnolence He was evaluated in the emergency room vital examination on presentation revealed a temperature of 98.4 pulse 105 respiration 16 blood pressure 87/55 pulse ox 95% on 4 L nasal cannula Laboratory data reveals a white blood count of 7.3 hemoglobin 9.1 platelet count 180 sodium 139 potassium 6.0 chloride 105 CO2 28 BUN 68 creatinine 2.49 magnesium was elevated at 2.8 troponin was elevated at 0.257, urine analysis revealed evidence of urinary tract infection. Testing in the emergency room, computed tomography scan of the brain without contrast was done and revealed age related atrophic and chronic small vessel ischemic changes without acute intracranial process, chest x-ray was done and revealed features of congestive heart failure that has improved since last admission, EKG was done and revealed evidence of atrial fibrillation with right bundle branch block and T-wave abnormality in the inferior leads Patient was admitted to medical floor for further evaluation and treatment. Past medical history is significant for history of hypertension, history of coronary artery disease, history of chronic kidney disease stage IV, history of anemia, history of atrial fibrillation, patient is not on anticoagulation due to recurrent falls, history of chronic systolic congestive heart failure with ejection fraction of 45-50%, history of valvular heart disease with moderate to severe mitral regurgitation and tricuspid regurgitation On review of systems patient is somnolent, responsive, she opens her eyes and answer 1 or 2 questions by yes or no and then closes her eyes again, in general she is denying any chest pain no shortness of breath no abdominal pain no vomiting no diarrhea and no urinary symptoms. Past Medical History Past Medical History: Atrial Fibrillation, Coronary Artery Disease (CAD), Chest Pain / Angina, Heart Failure, COPD, GERD/Reflux, Hyperlipidemia, Myocardial Infarction (DC), Osteoarthritis (OA), Pneumonia, Renal Disease Additional Past Medical History / Comment(s): Pt recently admitted to [facility] on 11/24/18 with dyspnea r/t CHF/cardiomyopathy and acute on chronic kidney disease. Other hx: Chronic Afib, neuropathy bilateral feet, gout bilateral feet, falls, occasional low back pain with bilateral sciatica with L side worse, hypothyroid, epistaxis with blood loss anemia, recent memory impairment Last Myocardial Infarction Date:: 2012 History of Any Multi-Drug Resistant Organisms: None Reported Past Surgical History: Appendectomy, Back Surgery, Cardiac Ablation, Cholecystectomy, Coronary Bypass/CABG, Heart Catheterization With Stent, Hysterectomy Additional Past Surgical History / Comment(s): LOW, 1993 CABG-4 vessels, nasal cauterization, colonoscopy with benign polypectomy, D&C, bilateral cataract removals, R breast benign bx, lumbar laminectomy. Past Anesthesia/Blood Transfusion Reactions: Previous Problems w/ Anesthesia Additional Past Anesthesia/Blood Transfusion Reaction / Comment(s): Pt received blood 02/07/12 without reaction after epistaxis. Date of Last Stent Placement:: 03/2013 Past Psychological History: Anxiety, Depression Additional Psychological History / Comment(s): Pt resides alone. She uses a walker to ambulate. She drives. She has home oxygen and a nebulizer. Smoking Status: Former smoker Past Alcohol Use History: Occasional Additional Past Alcohol Use History / Comment(s): Pt has a glass of wine each evening. She started smoking in 1956 and quit in 1986. Past Drug Use History: None Reported - Past Family History Mother Additional Family Medical History / Comment(s): Mother was a heavy drinker. She lived to be in her 80's Father Family Medical History: No Reported History Additional Family Medical History / Comment(s): Father lived to be in his 80's Medications and Allergies Home Medications Medication Instructions Recorded Confirmed Type Escitalopram [Lexapro] 10 mg PO HS@209907/20/18 11/26/20 History allopurinoL [Zyloprim] 300 mg PO HS@209907/20/18 11/26/20 History Isosorbide Mononitrate [Isosorbide 30 mg PO DAILY@89910/22/18 11/26/20 History Mononitrate ER] metOLazone [Zaroxolyn] 2.5 mg PO DAILY@89910/22/18 11/26/20 History Gabapentin [Neurontin] 300 mg PO HS@209910/28/20 11/26/20 History Potassium Chloride ER [K-Dur 20] 20 meq PO BID@0900,209910/28/20 11/26/20 History Acetaminophen Tab [Tylenol] 650 mg PO Q6HR PRN tab 11/10/20 11/26/20 Rx Ipratropium-Albuterol Nebulize 3 ml INHALATION RT-Q4H PRN ml 11/10/20 11/26/20 Rx [Duoneb 0.5 mg-3 mg/3 ml Soln] Cyanocobalamin (Vitamin B-12) 1,000 mcg PO DAILY@0900 11/26/20 11/26/20 History [Vitamin B-12] Darbepoetin Yosi [Aranesp] 40 mcg SQ GARRIDO 11/26/20 11/26/20 History Folic Acid 1 mg PO HS@209911/26/20 11/26/20 History Furosemide [Lasix] 40 mg PO DAILY@59911/26/20 11/26/20 History Metoprolol Tartrate [Lopressor] 50 mg PO BID@0900,209911/26/20 11/26/20 History Montelukast [Singulair] 10 mg PO HS@209911/26/20 11/26/20 History Pantoprazole [Protonix] 40 mg PO DAILY@59911/26/20 11/26/20 History acetaZOLAMIDE [Diamox] 250 mg PO BID@0600,139911/26/20 11/26/20 History Allergies Allergy/AdvReac Type Severity Reaction Status Date / Time [id number] Reductase AdvReac Unknown Verified 11/26/20 15:14 Inhibitor Physical Exam Vitals: Vital Signs Temp Pulse Pulse Resp BP BP BP 11/27/20 07:38 108 H 16 11/27/20 04:00 97.4 F L 95 18 94/62 11/27/20 01:31 100 18 11/27/20 00:00 97.5 F L 100 18 92/62 11/26/20 21:30 100 105/64 11/26/20 20:00 100 17 11/26/20 19:45 97.4 F L 107 H 17 83/58 11/26/20 18:00 107 H 20 101/49 11/26/20 17:40 85 16 80/59 11/26/20 16:20 97 16 96/55 11/26/20 15:30 106 H 17 90/55 11/26/20 15:00 103 H 19 86/55 11/26/20 14:57 98.4 F 91 16 86/55 11/26/20 14:36 11/26/20 14:34 105 H 16 87/55 Pulse Ox 11/27/20 07:38 100 11/27/20 04:00 96 11/27/20 01:31 11/27/20 00:00 97 11/26/20 21:30 11/26/20 20:00 11/26/20 19:45 94 L 11/26/20 18:00 98 11/26/20 17:40 94 L 11/26/20 16:20 94 L 11/26/20 15:30 97 11/26/20 15:00 94 L 11/26/20 14:57 95 11/26/20 14:36 93 L 11/26/20 14:34 95 Intake and Output 11/26/20 11/27/20 11/27/20 22:59 06:59 14:59 Intake Total 650 Output Total 175 Balance 475 Intake: Intake, IV Titration 650 Amount Sodium Chloride 0.9% 1, 650 000 ml @ 130 mls/hr IV . Q7H42M STA Rx#:[id number] Output: Urine 175 Other: Voiding Method Indwelling Catheter Indwelling Catheter # Voids 0 # Bowel Movements 1 Weight 74.616 kg 78 kg In general patient is somnolent responsive in no apparent distress HEENT head normocephalic and atraumatic Neck is supple no JVD no goiter no lymphadenopathy no carotid bruit Chest examination is clear to auscultation no crackles no wheezing Cardiac exam reveals irregular heart sounds S1 and S2 no gallops no murmurs Abdomen is soft nontender no organomegaly with normal bowel sounds Extremity exam reveals no edema no cyanosis or clubbing Neurological examination reveals no gross focal deficits Results CBC & Chem 7: 11/26/20 15:01 11/27/20 08:42 Labs: Abnormal Lab Results - Last 24 Hours (Table) 11/26/20 11/26/20 11/26/20 Range/Units 15:01 15:01 15:01 RBC 3.23 L (3.80-5.40) m/uL Hgb 9.1 L (11.4-16.0) gm/dL Hct 32.2 L (34.0-46.0) % MCHC 28.2 L (31.0-37.0) g/dL RDW 18.3 H (11.5-15.5) % Lymphocytes # 0.8 L (1.0-4.8) k/uL Potassium 6.0 H (3.5-5.1) mmol/L BUN 68 H (7-17) mg/dL Creatinine 2.49 H (0.52-1.04) mg/dL Glucose 116 H (74-99) mg/dL Magnesium (1.6-2.3) mg/dL Troponin I (0.000-0.034) ng/mL Urine Appearance Turbid H (Clear) Urine Protein Trace H (Negative) Urine Blood Small H (Negative) Ur Leukocyte Esterase Large H (Negative) Urine RBC 15 H (0-5) /hpf Urine WBC >182 H (0-5) /hpf Urine WBC Clumps Occasional H (None) /hpf Ur Squamous Epith Cells 12 H (0-4) /hpf Urine Bacteria Occasional H (None) /hpf Hyaline Casts 12 H (0-2) /lpf Urine Mucus Rare H (None) /hpf 11/26/20 11/26/20 11/26/20 Range/Units 15:01 15:35 18:14 RBC (3.80-5.40) m/uL Hgb (11.4-16.0) gm/dL Hct (34.0-46.0) % MCHC (31.0-37.0) g/dL RDW (11.5-15.5) % Lymphocytes # (1.0-4.8) k/uL Potassium (3.5-5.1) mmol/L BUN (7-17) mg/dL Creatinine (0.52-1.04) mg/dL Glucose (74-99) mg/dL Magnesium 2.8 H (1.6-2.3) mg/dL Troponin I 0.257 H* 0.205 H* (0.000-0.034) ng/mL Urine Appearance (Clear) Urine Protein (Negative) Urine Blood (Negative) Ur Leukocyte Esterase (Negative) Urine RBC (0-5) /hpf Urine WBC (0-5) /hpf Urine WBC Clumps (None) /hpf Ur Squamous Epith Cells (0-4) /hpf Urine Bacteria (None) /hpf Hyaline Casts (0-2) /lpf Urine Mucus (None) /hpf 11/26/20 Range/Units 21:45 RBC (3.80-5.40) m/uL Hgb (11.4-16.0) gm/dL Hct (34.0-46.0) % MCHC (31.0-37.0) g/dL RDW (11.5-15.5) % Lymphocytes # (1.0-4.8) k/uL Potassium (3.5-5.1) mmol/L BUN (7-17) mg/dL Creatinine (0.52-1.04) mg/dL Glucose (74-99) mg/dL Magnesium (1.6-2.3) mg/dL Troponin I 0.185 H* (0.000-0.034) ng/mL Urine Appearance (Clear) Urine Protein (Negative) Urine Blood (Negative) Ur Leukocyte Esterase (Negative) Urine RBC (0-5) /hpf Urine WBC (0-5) /hpf Urine WBC Clumps (None) /hpf Ur Squamous Epith Cells (0-4) /hpf Urine Bacteria (None) /hpf Hyaline Casts (0-2) /lpf Urine Mucus (None) /hpf Thrombosis Risk Factor Assmnt - Choose All That Apply Each Factor Represents 1 point: Abnormal pulmonary function (COPD), Medical pt on bed rest Each Risk Factor Represents 2 Points: Patient confined to bed Each Risk Factor Represents 3 Points: Age 75 years or older Other congenital or acquired thrombophilia - If yes, enter type in comment: No Thrombosis Risk Factor Assessment Total Risk Factor Score: 7 Thrombosis Risk Factor Assessment Level: High Risk Assessment and Plan Plan: Generalized weakness with mental status changes likely related to metabolic encephalopathy Urinary tract infection patient was started on IV Rocephin urine culture requested results are still pending Elevated troponin level cardiology consultation was requested Acute on chronic renal failure, baseline creatinine 1.9-2 Underlying history of atrial fibrillation, patient is not on any anticoagulation due to recurrent falls Underlying history of hypertension Underlying history of chronic systolic congestive heart failure Underlying history of chronic anemia Electrolyte imbalance with hyperkalemia and hypermagnesemia patient given a dose of Kayexalate yesterday will recheck labs this a.m. Plan At this time patient is admitted to telemetry floor Serial EKG and cardiac enzymes ordered She was started on IV Rocephin for urinary tract infection Cardiology consultation was requested in that regard to elevated troponin level Will monitor kidney function closely and treat the electrolyte imbalance as needed Prognosis is guarded Will follow during this admission Family is requesting neurology evaluation to assess reason for mental status changes and to assess degree of underlying dementia
[2020-11-27] MEDS: GABAPENTIN 300 MG CAP PO SCH (20:49)
[2020-11-27] MEDS: ESCITALOPRAM 10 MG TAB PO SCH (20:50)
[2020-11-27] MEDS: allopurinoL 300 MG TAB PO SCH (20:50)
[2020-11-27] MEDS: MONTELUKAST 10 MG TAB PO SCH (20:50)
[2020-11-27] MEDS: FOLIC ACID 1 MG TAB PO SCH (20:50)
[2020-11-28] MEDS: PANTOPRAZOLE 40 MG TABLET PO SCH (06:27)
[2020-11-28] MEDS: acetaZOLAMIDE 250 MG TAB PO SCH (06:27)
[2020-11-28 08:40] LABS: Anisocytosis Slight; Basophils # (A) 0.1 k/uL (0-0.2); Basophils % (A) 1 %; Eosinophils # (A) 0.2 k/uL (0-0.7); Eosinophils % (A) 2 %; HCT 34.2 % (34.0-46.0); HGB 9.1 gm/dL (11.4-16.0); Hypochromasia Marked; Lymphocytes # (A) 0.7 k/uL (1.0-4.8); Lymphocytes % (A) 9 %; MCH 27.8 pg (25.0-35.0); MCHC 26.7 g/dL (31.0-37.0); MCV 103.8 fL (80.0-100.0); Macrocytosis Moderate; Mean Platelet Volume 8.1; Monocytes # (A) 0.2 k/uL (0-1.0); Monocytes % (A) 3 %; Neutrophils # (A) 6.3 k/uL (1.3-7.7); Neutrophils % (A) 85 %; Platelet Count 164 k/uL (150-450); RBC 3.29 m/uL (3.80-5.40); RDW 18.3 % (11.5-15.5); WBC 7.4 k/uL (3.8-10.6)
[2020-11-28 09:03] LABS: Albumin 3.6 g/dL (3.5-5.0); Calcium 9.2 mg/dL (8.4-10.2); Potassium 4.9 mmol/L (3.5-5.1); Total Bilirubin 0.1 mg/dL (0.2-1.3); Total Protein 6.1 g/dL (6.3-8.2)
[2020-11-28] MEDS: METOPROLOL TARTRATE 50 MG TAB PO SCH ×2 (09:36→20:09)
[2020-11-28] MEDS: ISOSORBIDE MONONITRATE ER 30 MG TAB.ER.24H PO SCH (09:36)
[2020-11-28] MEDS: CYANOCOBALAMIN 500 MCG TAB PO SCH (09:36)
[2020-11-28] MEDS: ASPIRIN 325 MG TAB PO SCH (09:36)
[2020-11-28] MEDS: metOLazone 2.5 MG TAB PO SCH (09:37)
--- NOTE | 2020-11-28 10:05 | P.PN ---
Subjective Progress Note Date: 11/28/20 Gisela Harman, is an 85 year old female who presented to [facility] emergency room with a chief complaint of generalized weakness and worsening mental status with increased somnolence He was evaluated in the emergency room vital examination on presentation revealed a temperature of 98.4 pulse 105 respiration 16 blood pressure 87/55 pulse ox 95% on 4 L nasal cannula Laboratory data reveals a white blood count of 7.3 hemoglobin 9.1 platelet count 180 sodium 139 potassium 6.0 chloride 105 CO2 28 BUN 68 creatinine 2.49 magnesium was elevated at 2.8 troponin was elevated at 0.257, urine analysis revealed evidence of urinary tract infection. Testing in the emergency room, computed tomography scan of the brain without contrast was done and revealed age related atrophic and chronic small vessel ischemic changes without acute intracranial process, chest x-ray was done and revealed features of congestive heart failure that has improved since last admission, EKG was done and revealed evidence of atrial fibrillation with right bundle branch block and T-wave abnormality in the inferior leads Patient was admitted to medical floor for further evaluation and treatment. Past medical history is significant for history of hypertension, history of coronary artery disease, history of chronic kidney disease stage IV, history of anemia, history of atrial fibrillation, patient is not on anticoagulation due to recurrent falls, history of chronic systolic congestive heart failure with eje ction fraction of 45-50%, history of valvular heart disease with moderate to severe mitral regurgitation and tricuspid regurgitation On review of systems patient is somnolent, responsive, she opens her eyes and answer 1 or 2 questions by yes or no and then closes her eyes again, in general she is denying any chest pain no shortness of breath no abdominal pain no vomiting no diarrhea and no urinary symptoms. On 11/28/2020 patient remains somnolent. Patient remains on IV Rocephin for urinary tract infection urine culture ordered. Cardiology and neurology services have been consulted. Current temp 98.1. Heart rate 124. Respiratory rate 18, blood pressure 96/57 patient remains on 4 L with a pulse ox of 97%. Objective - Vital Signs Vital signs: Vital Signs Temp 98.1 F 11/28/20 08:00 Pulse 124 H 11/28/20 08:00 Resp 18 11/28/20 08:00 BP 96/57 11/28/20 08:00 Pulse Ox 97 11/28/20 08:00 Intake & Output 11/27/20 11/28/20 11/28/20 18:59 06:59 18:59 Intake Total 480 120 Output Total 100 100 Balance 380 -100 120 Weight 81.5 kg Intake: Oral 480 120 Output: Urine 100 100 Other: Voiding Method Indwelling Catheter Indwelling Catheter Indwelling Catheter # Voids 0 # Bowel Movements 0 0 - Exam In general patient is somnolent responsive in no apparent distress HEENT head normocephalic and atraumatic Neck is supple no JVD no goiter no lymphadenopathy no carotid bruit Chest examination is clear to auscultation no crackles no wheezing Cardiac exam reveals irregular heart sounds S1 and S2 no gallops no murmurs Abdomen is soft nontender no organomegaly with normal bowel sounds Extremity exam reveals no edema no cyanosis or clubbing Neurological examination reveals no gross focal deficits - Labs CBC & Chem 7: 11/28/20 07:14 11/28/20 07:14 Labs: Abnormal Lab Results - Last 24 Hours (Table) 11/27/20 11/27/20 11/28/20 Range/Units 08:42 11:20 07:14 RBC 3.29 L (3.80-5.40) m/uL Hgb 9.1 L (11.4-16.0) gm/dL MCV 103.8 H (80.0-100.0) fL MCHC 26.7 L (31.0-37.0) g/dL RDW 18.3 H (11.5-15.5) % Lymphocytes # 0.7 L (1.0-4.8) k/uL Chloride (98-107) mmol/L BUN (7-17) mg/dL Creatinine (0.52-1.04) mg/dL Glucose (74-99) mg/dL Iron 19 L (50-170) ug/dL % Saturation 6.05 L (12.00-45.00) Total Bilirubin (0.2-1.3) mg/dL Total Protein (6.3-8.2) g/dL Urine Appearance Cloudy H (Clear) Urine Protein 1+ H (Negative) Urine Blood Large H (Negative) Ur Leukocyte Esterase Large H (Negative) Urine RBC >182 H (0-5) /hpf Urine WBC >182 H (0-5) /hpf Urine WBC Clumps Many H (None) /hpf Amorphous Sediment Rare H (None) /hpf Urine Bacteria Rare H (None) /hpf Hyaline Casts 9 H (0-2) /lpf Urine Mucus Rare H (None) /hpf 11/28/20 Range/Units 07:14 RBC (3.80-5.40) m/uL Hgb (11.4-16.0) gm/dL MCV (80.0-100.0) fL MCHC (31.0-37.0) g/dL RDW (11.5-15.5) % Lymphocytes # (1.0-4.8) k/uL Chloride 109 H (98-107) mmol/L BUN 65 H (7-17) mg/dL Creatinine 2.39 H (0.52-1.04) mg/dL Glucose 116 H (74-99) mg/dL Iron (50-170) ug/dL % Saturation (12.00-45.00) Total Bilirubin 0.1 L (0.2-1.3) mg/dL Total Protein 6.1 L (6.3-8.2) g/dL Urine Appearance (Clear) Urine Protein (Negative) Urine Blood (Negative) Ur Leukocyte Esterase (Negative) Urine RBC (0-5) /hpf Urine WBC (0-5) /hpf Urine WBC Clumps (None) /hpf Amorphous Sediment (None) /hpf Urine Bacteria (None) /hpf Hyaline Casts (0-2) /lpf Urine Mucus (None) /hpf Microbiology - Last 24 Hours (Table) 11/26/20 19:03 Blood Culture - Preliminary Blood No Growth after 24 hours 11/27/20 11:20 Urine Culture - Preliminary Urine,Voided Assessment and Plan Plan: Generalized weakness with mental status changes likely related to metabolic encephalopathy Urinary tract infection patient was started on IV Rocephin urine culture requested results are still pending Elevated troponin level cardiology consultation was requested Acute on chronic renal failure, baseline creatinine 1.9-2 Underlying history of atrial fibrillation, patient is not on any anticoagulation due to recurrent falls Underlying history of hypertension Underlying history of chronic systolic congestive heart failure Underlying history of chronic anemia Electrolyte imbalance with hyperkalemia and hypermagnesemia patient given a dose of Kayexalate yesterday will recheck labs this a.m. Plan At this time patient is admitted to telemetry floor Serial EKG and cardiac enzymes ordered She was started on IV Rocephin for urinary tract infection Cardiology consultation was requested in that regard to elevated troponin level Will monitor kidney function closely and treat the electrolyte imbalance as needed Prognosis is guarded Will follow during this admission Family is requesting neurology evaluation to assess reason for mental status changes and to assess degree of underlying dementia
--- NOTE | 2020-11-28 10:18 | P.CNNES ---
History of Present Illness Consult date: 11/28/20 Requesting physician: Susan Virk Reason for Consult: mental status change History of Present Illness: This is an 85-year-old woman with medical history of coronary artery disease status post CABG, hyperlipidemia, atrial fibrillation, hypothyroidism, chronic kidney insufficiency, vitamin B12 and folate deficiency who presented emergency department on altered mental status. Some of the history is obtained from medical record and it's reported the patient has decreased level of consciousness and decreased oral intake is resort [facility]. She also had a recent fall with contusion over the left forehead per the ED note. Per the patient nurse she stated that the patient is having fluctu ation of her mentation and that she's the cooperating for feeding and following some simple commands and she stated that she's lifting bilateral upper extremities symmetrically. Upon seeing the patient she was sleepy and per the patient's nurse she just had her breakfast and cooperating with that. Some of the patient's home medication includes allopurinol, potassium, metoprolol, isosorbide, gabapentin 300 mg daily at bedtime, Lasix, folic acid 1 mg the night, vitamin B12 1000 g daily, Lexapro. Of note the patient was seen by our Neuro team (Dr. Villalpando) in the hospital and was seen last on 11/08/2020 for altered mental status and he stated that altered mental status due to toxic metabolic encephalopathy. As well as he felt the patient has trouble underlying cognitive impairment/dementia for the last 2 years, progressively getting worse. She has history of atrial fibrillation and not on anticoagulation and possibly due to GI bleed but not exactly known. Some of the workup in the hospital consisted of: Initial vital signs: His blood pressure of 87/55, heart rate of 105, respiratory of 16, temperature of 98.4 Fahrenheit rectally and pulse ox of 95% on 4 L of nasal cannula. Since the patient has been the hospital she had no elevated temperature. Patient initial white blood cells 7.3 thousand which is considered within normal limits. The hemoglobin is 9.1 which is low. Chemistry panel as the creatinine is 2.49 and it's elevated and the potassium 6.0 and there is slight hemolysis. Magnesium 2. was slightly elevated otherwise sodium is 139, the calcium is 9.3, initial serum glucose 116, AST is 33 and ALT of 7, creatinine kinase is 40, which seems unremarkable. Also the plasma like acid is up 0.8 which is unremarkable. Patient initial troponin 0.257 repeated is 0.205 and the third one is 0.185 and it's trending down. Urinalysis seems remarkable for urinary tract infection. It appears turbid, leukocyte esterase was large, urine white blood cell is more than 182, urine bacteria was occasional, CT of the head is reported as age-related atrophic and chronic small vessel ischemic change without acute intracranial process seen at this time. I personally could not review the CT of the head because of a problem with the system. Chest x-ray was reported as features of congestive Faler improved from prior study. EKG is reported as atrial fibrillation. Right bundle branch block. T wave abnormality, consider inferior ischemia. Abnormal EKG. Review of Systems Review of system is limited by the parent positive and negative as per HPI Past Medical History Past Medical History: Atrial Fibrillation, Coronary Artery Disease (CAD), Chest Pain / Angina, Heart Failure, COPD, GERD/Reflux, Hyperlipidemia, Myocardial Infarction ([place]), Osteoarthritis (OA), Pneumonia, Renal Disease Additional Past Medical History / Comment(s): Pt recently admitted to [facility] on 11/24/18 with dyspnea r/t CHF/cardiomyopathy and acute on chronic kidney disease. Other hx: Chronic Afib, neuropathy bilateral feet, gout bilateral feet, falls, occasional low back pain with bilateral sciatica with L side worse, hypothyroid, epistaxis with blood loss anemia, recent memory impairment Last Myocardial Infarction Date:: 2012 History of Any Multi-Drug Resistant Organisms: None Reported Past Surgical History: Appendectomy, Back Surgery, Cardiac Ablation, Cholecystectomy, Coronary Bypass/CABG, Heart Catheterization With Stent, Hysterectomy Additional Past Surgical History / Comment(s): LOW, 1993 CABG-4 vessels, nasal cauterization, colonoscopy with benign polypectomy, D&C, bilateral cataract rem ovals, R breast benign bx, lumbar laminectomy. Past Anesthesia/Blood Transfusion Reactions: Previous Problems w/ Anesthesia Additional Past Anesthesia/Blood Transfusion Reaction / Comment(s): Pt received blood 02/07/12 without reaction after epistaxis. Date of Last Stent Placement:: 03/2013 Past Psychological History: Anxiety, Depression Additional Psychological History / Comment(s): Pt resides alone. She uses a walker to ambulate. She drives. She has home oxygen and a nebulizer. Smoking Status: Former smoker Past Alcohol Use History: Occasional Additional Past Alcohol Use History / Comment(s): Pt has a glass of wine each evening. She started smoking in 1957 and quit in 1986. Past Drug Use History: None Reported - Past Family History Mother Additional Family Medical History / Comment(s): Mother was a heavy drinker. She lived to be in her 80's Father Family Medical History: No Reported History Additional Family Medical History / Comment(s): Father lived to be in his 80's Medications and Allergies Home Medications Medication Instructions Recorded Confirmed Type Escitalopram [Lexapro] 10 mg PO HS@209907/20/18 11/26/20 History allopurinoL [Zyloprim] 300 mg PO HS@209907/20/18 11/26/20 History Isosorbide Mononitrate [Isosorbide 30 mg PO DAILY@89910/22/18 11/26/20 History Mononitrate ER] metOLazone [Zaroxolyn] 2.5 mg PO DAILY@89910/22/18 11/26/20 History Gabapentin [Neurontin] 300 mg PO HS@209910/28/20 11/26/20 History Potassium Chloride ER [K-Dur 20] 20 meq PO BID@899,209910/28/20 11/26/20 History Acetaminophen Tab [Tylenol] 650 mg PO Q6HR PRN tab 11/10/20 11/26/20 Rx Ipratropium-Albuterol Nebulize 3 ml INHALATION RT-Q4H PRN ml 11/10/20 11/26/20 Rx [Duoneb 0.5 mg-3 mg/3 ml Soln] Cyanocobalamin (Vitamin B-12) 1,000 mcg PO DAILY@89911/26/20 11/26/20 History [Vitamin B-12] Darbepoetin Yosi [Aranesp] 40 mcg SQ GARRIDO 11/26/20 11/26/20 History Folic Acid 1 mg PO HS@209911/26/20 11/26/20 History Furosemide [Lasix] 40 mg PO DAILY@59911/26/20 11/26/20 History Metoprolol Tartrate [Lopressor] 50 mg PO BID@899,209911/26/20 11/26/20 History Montelukast [Singulair] 10 mg PO HS@2100 11/26/20 11/26/20 History Pantoprazole [Protonix] 40 mg PO DAILY@0600 11/26/20 11/26/20 History acetaZOLAMIDE [Diamox] 250 mg PO BID@0600,1400 11/26/20 11/26/20 History Allergies Allergy/AdvReac Type Severity Reaction Status Date / Time [id number] Reductase AdvReac Unknown Verified 11/26/20 15:14 Inhibitor Physical Examination - Vital Signs Vital Signs: Vital Signs Temp Pulse Pulse Resp BP BP Pulse Ox 11/28/20 08:00 98.1 F 124 H 18 96/57 97 11/28/20 04:00 97.5 F L 107 H 18 111/67 94 L 11/28/20 02:00 108 H 18 11/27/20 23:07 97.4 F L 108 H 18 101/59 92 L 11/27/20 20:00 97.6 F 110 H 18 99/67 95 11/27/20 16:33 100 11/27/20 16:28 98 11/27/20 16:18 97.4 F L 96 18 94/57 91 L 11/27/20 12:26 97.4 F L 100 18 86/46 92 L Intake and Output 11/27/20 11/28/20 11/28/20 22:59 06:59 14:59 Intake Total 120 120 Output Total 0 100 Balance 120 -100 120 Intake: Oral 120 120 Output: Urine 0 100 Other: Voiding Method Indwelling Catheter Indwelling Catheter Indwelling Catheter # Voids 0 # Bowel Movements 0 0 Weight 81.5 kg GENERAL: The patient is an obese woman lying in bed and is not in acute distress. CHEST: The heart rate is regular rate rhythm. No murmurs to auscultation. No carotid bruit bilaterally. LUNG: Clear to auscultation bilaterally no wheezing noted throughout. Not labored breathing. ABDOMEN/GI: Bowel sounds present in all 4 quadrants. No tenderness to palpation throughout. NEUROLOGICAL: Higher mental function: The patient is drowsy but is awakeable to painful stimuli. She stated her name correctly and following simple commands (thumbs up on both side and sticking her tongue out to command). Otherwise did limited communication. Cranial nerves: The pupils are round, equal and reactive to light. EOM intact and tracking throughout the room. No facial weakness. Sticking her tongue out without difficulty. Rest of cranial nerves could not be assessed because of her cooperation. Motor: Gait is deferred because of her condition. The strength is limited because of her cooperation. Is moving bilateral extremities up above gravity but hard to assess individual strength because of her cooperation and moving both ankles against gravity (I felt possibly moving the right > left but was hard to assess because of cooperation). She has cast over the right upper extremity. Normal tone and bulk otherwise. Cerebellum: Could not assess. Sensation: Hard to assess. Reflexes (right/left): 1+ throughout. Plantars are mute bilaterally. Results Lipid Panel: Triglyceride 127, cholesterol 175, LDL 96, HDL 53. - Laboratory Findings CBC and BMP: 11/28/20 07:14 11/28/20 07:14 Abnormal Lab Findings: Abnormal Labs 11/26/20 11/26/20 11/26/20 15:01 15:01 15:01 RBC 3.23 L Hgb 9.1 L Hct 32.2 L MCV MCHC 28.2 L RDW 18.3 H Lymphocytes # 0.8 L Potassium 6.0 H Chloride BUN 68 H Creatinine 2.49 H Glucose 116 H Magnesium Iron % Saturation Total Bilirubin Troponin I Total Protein Urine Appearance Turbid H Urine Protein Trace H Urine Blood Small H Ur Leukocyte Esterase Large H Urine RBC 15 H Urine WBC >182 H Urine WBC Clumps Occasional H Ur Squamous Epith Cells 12 H Amorphous Sediment Urine Bacteria Occasional H Hyaline Casts 12 H Urine Mucus Rare H 11/26/20 11/26/20 11/26/20 15:01 15:35 18:14 RBC Hgb Hct MCV MCHC RDW Lymphocytes # Potassium Chloride BUN Creatinine Glucose Magnesium 2.8 H Iron % Saturation Total Bilirubin Troponin I 0.257 H* 0.205 H* Total Protein Urine Appearance Urine Protein Urine Blood Ur Leukocyte Esterase Urine RBC Urine WBC Urine WBC Clumps Ur Squamous Epith Cells Amorphous Sediment Urine Bacteria Hyaline Casts Urine Mucus 11/26/20 11/27/20 11/27/20 21:45 08:42 11:20 RBC Hgb Hct MCV MCHC RDW Lymphocytes # Potassium 5.2 H Chloride 109 H BUN 64 H Creatinine 2.36 H Glucose 107 H Magnesium 2.6 H Iron 19 L % Saturation 6.05 L Total Bilirubin Troponin I 0.185 H* Total Protein Urine Appearance Cloudy H Urine Protein 1+ H Urine Blood Large H Ur Leukocyte Esterase Large H Urine RBC >182 H Urine WBC >182 H Urine WBC Clumps Many H Ur Squamous Epith Cells Amorphous Sediment Rare H Urine Bacteria Rare H Hyaline Casts 9 H Urine Mucus Rare H 11/28/20 11/28/20 07:14 07:14 RBC 3.29 L Hgb 9.1 L Hct MCV 103.8 H MCHC 26.7 L RDW 18.3 H Lymphocytes # 0.7 L Potassium Chloride 109 H BUN 65 H Creatinine 2.39 H Glucose 116 H Magnesium Iron % Saturation Total Bilirubin 0.1 L Troponin I Total Protein 6.1 L Urine Appearance Urine Protein Urine Blood Ur Leukocyte Esterase Urine RBC Urine WBC Urine WBC Clumps Ur Squamous Epith Cells Amorphous Sediment Urine Bacteria Hyaline Casts Urine Mucus Assessment and Plan Assessment: Altered mental status likely due to toxic metabolic encephalopathy (with Acute on chronic Kidney insuffiency) and possibly underlying UTI.--per nurse her mentation is fluctuating (Delerium) Hypotension. Possibly concerning for sepsis for acute UTI. Probable cognitive impairments/dementia (since on last note by our team it was mention her mentation has been declining for the past two years) Acute on chronic kidney insufficiency Anemia Elevated troponin--trending down Hyperkalemia History of Vitamin B12 deficiency and folate deficiency reported Atrial fibrillation not on anticogulation Plan: I ordered a routine EEG. I'll not start the patient on antiepileptic drug unle ss there is epileptiform discharges or seizure on the EEG. Placed on Q4 hour neuro-checks. She is continued on the vitamin B12 1000 g daily and folic acid of 1 mg daily. Cardiology is on board. Regarding the use of anticoagulation for atrial fibrilation, will defer the management to the primary team/GI team if safe to do so. Otherwise were defer the rest of the medical management to the primary team. The plan is discussed with the patient's nurse. Thank you for the consultation. Henry Ogden MD Neuro-Hospitalist Time with Patient: Greater than 30
--- NOTE | 2020-11-28 11:32 | P.NPCON ---
History of Present Illness - Reason for Consult acute renal failure, chronic renal failure - History of Present Illness Reason for consultation: Acute kidney injury on chronic kidney disease. History of present illness: Patient is a 85-year-old female seen in consultation for acute kidney injury on chronic kidney disease. Patient has chronic kidney disease stage IV with baseline creatinine near 2. Etiology is nephrosclerosis and cardiorenal syndrome. Creatinine is admission was 2.55 and is 2.39 today. Patient presented to the hospital from an extended care facility with generalized weakness and poor intake. She is currently sleeping. Patient is not a reliable historian. Blood pressure 96/57 this morning. Afebrile. She has a Welsh catheter and urine output overnight was about 200 mL. She is maintained on IV fluids. She is on antibiotics for UTI. Patient has history of systolic CHF w ith ejection fraction of 45-50% and moderate to severe mitral regurgitation and moderate tricuspid regurgitation. Ultrasound from October 2020 revealed small left kidney. No evidence of hydronephrosis was noted. Vital signs are stable. General: The patient appeared well nourished and normally developed. Sleeping. HEENT: Head exam is unremarkable. LUNGS: Breath sounds decreased. HEART: Rate and Rhythm are regular. First and second heart sounds normal. No murmurs, rubs or gallops. ABDOMEN: Soft, no distention. EXTREMITITES: No edema. Past Medical History Past Medical History: Atrial Fibrillation, Coronary Artery Disease (CAD), Chest Pain / Angina, Heart Failure, COPD, GERD/Reflux, Hyperlipidemia, Myocardial Infarction ([place]), Osteoarthritis ([place]), Pneumonia, Renal Disease Additional Past Medical History / Comment(s): Pt recently admitted to [facility] on 11/24/18 with dyspnea r/t CHF/cardiomyopathy and acute on chronic kidney dis ease. Other hx: Chronic Afib, neuropathy bilateral feet, gout bilateral feet, falls, occasional low back pain with bilateral sciatica with L side worse, hypothyroid, epistaxis with blood loss anemia, recent memory impairment Last Myocardial Infarction Date:: 2012 History of Any Multi-Drug Resistant Organisms: None Reported Past Surgical History: Appendectomy, Back Surgery, Cardiac Ablation, Cholecystectomy, Coronary Bypass/CABG, Heart Catheterization With Stent, Hysterectomy Additional Past Surgical History / Comment(s): LOW, 1993 CABG-4 vessels, nasal cauterization, colonoscopy with benign polypectomy, D&C, bilateral cataract removals, R breast benign bx, lumbar laminectomy. Past Anesthesia/Blood Transfusion Reactions: Previous Problems w/ Anesthesia Additional Past Anesthesia/Blood Transfusion Reaction / Comment(s): Pt received blood 02/07/12 without reaction after epistaxis. Date of Last Stent Placement:: 03/2013 Past Psychological History: Anxiety, Depression Additional Psychological History / Comment(s): Pt resides alone. She uses a walker to ambulate. She drives. She has home oxygen and a nebulizer. Smoking Status: Former smoker Past Alcohol Use History: Occasional Additional Past Alcohol Use History / Comment(s): Pt has a glass of wine each evening. She started smoking in 1956 and quit in 1986. Past Drug Use History: None Reported - Past Family History Mother Additional Family Medical History / Comment(s): Mother was a heavy drinker. She lived to be in her 80's Father Family Medical History: No Reported History Additional Family Medical History / Comment(s): Father lived to be in his 80's Medications and Allergies Home Medications Medication Instructions Recorded Confirmed Type Escitalopram [Lexapro] 10 mg PO HS@209907/20/18 11/26/20 History allopurinoL [Zyloprim] 300 mg PO HS@209907/20/18 11/26/20 History Isosorbide Mononitrate [Isosorbide 30 mg PO DAILY@89910/22/18 11/26/20 History Mononitrate ER] metOLazone [Zaroxolyn] 2.5 mg PO DAILY@0900 10/22/18 11/26/20 History Gabapentin [Neurontin] 300 mg PO HS@209910/28/20 11/26/20 History Potassium Chloride ER [K-Dur 20] 20 meq PO BID@0900,209910/28/20 11/26/20 History Acetaminophen Tab [Tylenol] 650 mg PO Q6HR PRN tab 11/10/20 11/26/20 Rx Ipratropium-Albuterol Nebulize 3 ml INHALATION RT-Q4H PRN ml 11/10/20 11/26/20 Rx [Duoneb 0.5 mg-3 mg/3 ml Soln] Cyanocobalamin (Vitamin B-12) 1,000 mcg PO DAILY@0900 11/26/20 11/26/20 History [Vitamin B-12] Darbepoetin Yosi [Aranesp] 40 mcg SQ GARRIDO 11/26/20 11/26/20 History Folic Acid 1 mg PO HS@2100 11/26/20 11/26/20 History Furosemide [Lasix] 40 mg PO DAILY@0600 11/26/20 11/26/20 History Metoprolol Tartrate [Lopressor] 50 mg PO BID@0900,2100 11/26/20 11/26/20 History Montelukast [Singulair] 10 mg PO HS@2100 11/26/20 11/26/20 History Pantoprazole [Protonix] 40 mg PO DAILY@0600 11/26/20 11/26/20 History acetaZOLAMIDE [Diamox] 250 mg PO BID@0600,1400 11/26/20 11/26/20 History Allergies Allergy/AdvReac Type Severity Reaction Status Date / Time [id number]-Hjj Reductase AdvReac Unknown Verified 11/26/20 15:14 Inhibitor Physical Exam Vitals: Vital Signs Temp Pulse Pulse Resp BP BP Pulse Ox 11/28/20 08:00 98.1 F 124 H 18 96/57 97 11/28/20 04:00 97.5 F L 107 H 18 111/67 94 L 11/28/20 02:00 108 H 18 11/27/20 23:07 97.4 F L 108 H 18 101/59 92 L 11/27/20 20:00 97.6 F 110 H 18 99/67 95 11/27/20 16:33 100 11/27/20 16:28 98 11/27/20 16:18 97.4 F L 96 18 94/57 91 L 11/27/20 12:26 97.4 F L 100 18 86/46 92 L Intake and Output 11/27/20 11/28/20 11/28/20 22:59 06:59 14:59 Intake Total 120 120 Output Total 0 100 Balance 120 -100 120 Intake: Oral 120 120 Output: Urine 0 100 Other: Voiding Method Indwelling Catheter Indwelling Catheter Indwelling Catheter # Voids 0 # Bowel Movements 0 0 Weight 81.5 kg Results - Lab Results Most recent lab results Calcium 9.2 mg/dL (8.4-10.2) 11/28/20 07:14 Magnesium 2.6 mg/dL (1.6-2.3) H 11/27/20 08:42 11/28/20 07:14 11/28/20 07:14 Assessment and Plan Plan: assessment: 1. Acute kidney injury secondary to ATN secondary todiuresis. Creatinine 2.39 today. Ultrasound from last month revealed small left kidney. No evidence of hydronephrosis was noted. 2. Chronic kidney disease stage IV with baseline creatinine near 2 secondary to nephrosclerosis and cardiorenal syndrome. 3. Chronic systolic CHF with ejection fraction of 45-50% with mitral and tricuspid regurgitation. 4. Anemia of chronic kidney disease maintained on Aranesp. 5. UTI maintained on antibiotics. plan: Stop Diamox and metolazone. Maintain IV fluids for now. Repeat chest x-ray. Maintain Welsh catheter. Strict is and os. Follow-up cultures. Avoid nephrotoxins. Continue to monitor renal function and urine output. Thank you for the consultation. I will continue to follow the patient with you during her hospital stay.
--- NOTE | 2020-11-28 11:35 | P.CRDCN ---
History of Present Illness Consult date: 11/28/20 History of present illness: HISTORY OF PRESENT ILLNESS: This is a 85 year old female with a past medical history significant for chronic persistent atrial fibrillation not on anticoagulation secondary to frequent falls and GI bleed, COPD with home oxygen use, coronary artery disease with previous stenting and CABG 4 in 1993, hypertension, hyperlipidemia, and chronic kidney disease. Patient follows in the office with Dr. Parada. We have been asked to see the patient in consultation for elevated troponin. Patient was currently brought to the hospital secondary to generalized weakness and worsening mental status. Patient examined at the bedside. Patient is confused at the time of examination. She is only able to answer questions inte rmittently. She denies chest pain or pressure. She denied shortness of breath. Patient has a cast to her right arm. She states that she fell 2 weeks ago and broke her arm. EKG reveals atrial fibrillation. Right bundle branch block. Nonspecific ST-T wave changes, unchanged from previous EKGs Chest xray features of congestive heart failure improved from prior study Laboratory data: WBC 7.3. Hemoglobin 9.1. Platelet count 180. Sodium 142. Potassium 5.2. BUN 64. Creatinine 2.36. Troponin 0.257. 0.205. 0.185. Current home cardiac medications include Zaroxolyn 2.5 mg daily, Diamox 250 mg twice a day, potassium 20meq twice a day, Toprol tartrate 50 mg twice a day, Imdur 30 mg daily, Lasix 40 mg daily Most recent echocardiogram obtained in October 2020 revealed ejection fraction 45-50%, moderate to severe mitral regurgitation, moderate tricuspid regurgitation and mild pulmonary hypertension. Cardiac catheterization history: 2012 revealing new stenosis in distal vein graft to major diagonal branch of LAD 80-90%, distal left main occlusion, totally occluded RCA, patent LEVIN, and patent SVG to OM REVIEW OF SYSTEMS: At the time of my exam: CONSTITUTIONAL: Denies fever or chills. HEENT: Denies blurred vision, vision changes, or eye pain. Denies hemoptysis CARDIOVASCULAR: Denies chest pain. Denies orthopnea. Denies PND. Denies palpitations RESPIRATORY: Denies shortness of breath. GASTROINTESTINAL: Denies abdominal pain. Denies nausea or vomiting. HEMATOLOGIC: Denies bleeding disorders. GENITOURINARY: Denies any blood in urine. SKIN: Denies pruitis. Denies rash. PHYSICAL EXAM: VITAL SIGNS: Reviewed. GENERAL: Well-developed in no acute distress. HEENT: Head is normocephalic. Pupils are equal, round. Sclerae anicteric. Mucous membranes of the mouth are moist. Neck supple. No JVD or thyromegaly LUNGS: Respirations even and unlabored. Lungs essentially clear to auscultation bilaterally. HEART: Irregular rate and rhythm. S1 and S2 heard. Systolic murmur noted. ABDOMEN: Soft. Nondistended. Nontender. EXTREMITIES: Normal range of motion. No clubbing or cyanosis. Peripheral pulses intact. No lower extremity edema NEUROLOGIC: Awake and alert. Patient confused. ASSESSMENT: Generalized weakness Altered mental status Chronic persistent atrial fibrillation, not on anticoagulation secondary to history of GI bleeding and frequent falls Coronary artery disease with previous stenting and CABG 1993 Chronic diastolic heart failure, ejection fraction 45-50%, currently euvolemic Chronic kidney disease Abnormal troponins, not suggestive of acute coronary syndrome, likely secondary to chronic kidney disease Chronic hypoxic respiratory failure, on home oxygen Hypertension Former nicotine dependence PLAN: No need to repeat 2-D echo as this was performed in October 2020 Resume home cardiac medications Monitor blood pressure Continue telemetry monitoring No further inpatient recommendations from a cardiac standpoint We will sign off. Please reconsult if needed. Nurse practitioner note has been reviewed by physician. Signing provider agrees with the documented findings, assessment, and plan of care. Past Medical History Past Medical History: Atrial Fibrillation, Coronary Artery Disease (CAD), Chest Pain / Angina, Heart Failure, COPD, GERD/Reflux, Hyperlipidemia, Myocardial Infarction (OK), Osteoarthritis (OA), Pneumonia, Renal Disease Additional Past Medical History / Comment(s): Pt recently admitted to [facility] on 11/24/18 with dyspnea r/t CHF/cardiomyopathy and acute on chronic kidney disease. Other hx: Chronic Afib, neuropathy bilateral feet, gout bilateral feet, falls, occasional low back pain with bilateral sciatica with L side worse, hypothyroid, epistaxis with blood loss anemia, recent memory impairment Last Myocardial Infarction Date:: 2012 History of Any Multi-Drug Resistant Organisms: None Reported Past Surgical History: Appendectomy, Back Surgery, Cardiac Ablation, Cholecystectomy, Coronary Bypass/CABG, Heart Catheterization With Stent, Hysterectomy Additional Past Surgical History / Comment(s): LOW, 1993 CABG-4 vessels, nasal cauterization, colonoscopy with benign polypectomy, D&C, bilateral cataract removals, R breast benign bx, lumbar laminectomy. Past Anesthesia/Blood Transfusion Reactions: Previous Problems w/ Anesthesia Additional Past Anesthesia/Blood Transfusion Reaction / Comment(s): Pt received blood 02/07/12 without reaction after epistaxis. Date of Last Stent Placement:: 03/2013 Past Psychological History: Anxiety, Depression Additional Psychological History / Comment(s): Pt resides alone. She uses a walker to ambulate. She drives. She has home oxygen and a nebulizer. Smoking Status: Former smoker Past Alcohol Use History: Occasional Additional Past Alcohol Use History / Comment(s): Pt has a glass of wine each evening. She started smoking in 6 and quit in 1986. Past Drug Use History: None Reported - Past Family History Mother Additional Family Medical History / Comment(s): Mother was a heavy drinker. She lived to be in her 80's Father Family Medical History: No Reported History Additional Family Medical History / Comment(s): Father lived to be in his 80's Medications and Allergies Home Medications Medication Instructions Recorded Confirmed Type Escitalopram [Lexapro] 10 mg PO HS@209907/20/18 11/26/20 History allopurinoL [Zyloprim] 300 mg PO HS@209907/20/18 11/26/20 History Isosorbide Mononitrate [Isosorbide 30 mg PO DAILY@89910/22/18 11/26/20 History Mononitrate ER] metOLazone [Zaroxolyn] 2.5 mg PO DAILY@0900 10/22/18 11/26/20 History Gabapentin [Neurontin] 300 mg PO HS@209910/28/20 11/26/20 History Potassium Chloride ER [K-Dur 20] 20 meq PO BID@0900,209910/28/20 11/26/20 Hist ory Acetaminophen Tab [Tylenol] 650 mg PO Q6HR PRN tab 11/10/20 11/26/20 Rx Ipratropium-Albuterol Nebulize 3 ml INHALATION RT-Q4H PRN ml 11/10/20 11/26/20 Rx [Duoneb 0.5 mg-3 mg/3 ml Soln] Cyanocobalamin (Vitamin B-12) 1,000 mcg PO DAILY@0900 11/26/20 11/26/20 History [Vitamin B-12] Darbepoetin Yosi [Aranesp] 40 mcg SQ GARRIDO 11/26/20 11/26/20 History Folic Acid 1 mg PO HS@209911/26/20 11/26/20 History Furosemide [Lasix] 40 mg PO DAILY@0611/26/20 11/26/20 History Metoprolol Tartrate [Lopressor] 50 mg PO BID@0900,2100 11/26/20 11/26/20 History Montelukast [Singulair] 10 mg PO HS@209911/26/20 11/26/20 History Pantoprazole [Protonix] 40 mg PO DAILY@0600 11/26/20 11/26/20 History acetaZOLAMIDE [Diamox] 250 mg PO BID@0600,1400 11/26/20 11/26/20 History Allergies Allergy/AdvReac Type Severity Reaction Status Date / Time Vztvfsb-[id number]-[id number] Reductase AdvReac Unknown Verified 11/26/20 15:14 Inhibitor Physical Exam Vitals: Vital Signs Temp Pulse Pulse Resp BP BP Pulse Ox 11/28/20 04:00 97.5 F L 107 H 18 111/67 94 L 11/28/20 02:00 108 H 18 11/27/20 23:07 97.4 F L 108 H 18 101/59 92 L 11/27/20 20:00 97.6 F 110 H 18 99/67 95 11/27/20 16:33 100 11/27/20 16:28 98 11/27/20 16:18 97.4 F L 96 18 94/57 91 L 11/27/20 12:26 97.4 F L 100 18 86/46 92 L 11/27/20 08:00 97 F L 101 H 18 99/61 99 Intake and Output 11/27/20 11/28/20 11/28/20 22:59 06:59 14:59 Intake Total 120 Output Total 0 100 Balance 120 -100 Intake: Oral 120 Output: Urine 0 100 Other: Voiding Method Indwelling Catheter Indwelling Catheter # Bowel Movements 0 Weight 81.5 kg Results 11/28/20 07:14 11/28/20 07:14 Cardiac Enzymes 11/27/20 Range/Units 08:42 AST 22 (14-36) U/L Lipids 11/27/20 Range/Units 08:42 Triglycerides 127.0 (0.0-149.0) mg/dL Cholesterol 175 (0-200) mg/dL HDL Cholesterol 53.0 (40.0-60.0) mg/dL Cholesterol/HDL Ratio 3.30 Comprehensive Metabolic Panel 11/27/20 Range/Units 08:42 Sodium 142 (137-145) mmol/L Potassium 5.2 H (3.5-5.1) mmol/L Chloride 109 H (98-107) mmol/L Carbon Dioxide 27 (22-30) mmol/L BUN 64 H (7-17) mg/dL Creatinine 2.36 H (0.52-1.04) mg/dL Glucose 107 H (74-99) mg/dL Calcium 9.2 (8.4-10.2) mg/dL AST 22 (14-36) U/L ALT 8 (4-34) U/L Alkaline Phosphatase 104 (38-126) U/L Total Protein 6.4 (6.3-8.2) g/dL Albumin 3.7 (3.5-5.0) g/dL Current Medications Generic Name Dose Route Start Last Admin Trade Name Freq PRN Reason Stop Dose Admin Acetaminophen 650 mg 11/26/20 17:14 Acetaminophen Tab 325 Mg Tab PO Q6HR PRN Mild Pain or Fever > 100.5 Acetazolamide 250 mg 11/27/20 06:00 11/28/20 06:27 Acetazolamide 250 Mg Tab PO 250 mg BID@0600,1400 MAIKOL Administration Albuterol/Ipratropium 3 ml 11/26/20 17:14 11/27/20 16:27 Ipratropium-Albuterol 3 Ml Neb INHALATION 3 ml RT-Q4H PRN Administration Dyspnea Allopurinol 300 mg 11/26/20 21:00 11/27/20 20:50 Allopurinol 300 Mg Tab PO 300 mg HS@2100 MAIKOL Administration Aspirin 325 mg 11/27/20 09:00 11/27/20 09:35 Aspirin 325 Mg Tab PO 325 mg DAILY MAIKOL Administration Cyanocobalamin 1,000 mcg 11/27/20 09:00 11/27/20 09:35 Cyanocobalamin 500 Mcg Tab PO 1,000 mcg DAILY@0900 MAIKOL Administration Darbepoetin Yosi 40 mcg 11/30/20 09:00 Darbepoetin Yosi 40 Mcg/0.4 Ml Syringe SQ GARRIDO AMIKOL Escitalopram Oxalate 10 mg 11/26/20 21:00 11/27/20 20:50 Escitalopram 10 Mg Tab PO 10 mg HS@2100 MAIKOL Administration Folic Acid 1 mg 11/26/20 21:00 11/27/20 20:50 Folic Acid 1 Mg Tab PO 1 mg HS@2100 MAIKOL Administration Gabapentin 300 mg 11/26/20 21:00 11/27/20 20:49 Gabapentin 300 Mg Cap PO 300 mg HS@2100 MAIKOL Administration Ceftriaxone Sodium 1 gm/ 50 mls @ 100 mls/hr 11/27/20 09:00 11/27/20 09:34 Sodium Chloride IVPB 100 mls/hr Q24HR MAIKOL Administration Isosorbide Mononitrate 30 mg 11/27/20 09:00 11/27/20 09:35 Isosorbide Mononitrate Er 30 Mg Tab.Er.24h PO 30 mg DAILY@0900 MAIKOL Administration Metolazone 2.5 mg 11/27/20 09:00 11/27/20 09:35 Metolazone 2.5 Mg Tab PO 2.5 mg DAILY@09 MAIKOL Administration Metoprolol Tartrate 50 mg 11/26/20 21:00 11/27/20 20:49 Metoprolol Tartrate 50 Mg Tab PO 50 mg BID@0900,2100 MAIKOL Administration Montelukast Sodium 10 mg 11/26/20 21:00 11/27/20 20:50 Montelukast 10 Mg Tab PO 10 mg HS@2100 MAIKOL Administration Nitroglycerin 0.4 mg 11/26/20 17:11 Nitroglycerin Sl Tabs 0.4 Mg Tab SUBLINGUAL Q5M PRN Chest Pain Pantoprazole Sodium 40 mg 11/27/20 06:00 11/28/20 06:27 Pantoprazole 40 Mg Tablet PO 40 mg DAILY@0600 [facility] Administration Intake and Output 11/27/20 11/28/20 11/28/20 22:59 06:59 14:59 Intake Total 120 Output Total 0 100 Balance 120 -100 Intake: Oral 120 Output: Urine 0 100 Other: Voiding Method Indwelling Catheter Indwelling Catheter # Bowel Movements 0 Weight 81.5 kg 11/26/20 15:01 11/27/20 08:42
[2020-11-28] MEDS: IPRATROPIUM-ALBUTEROL 3 ML NEB INHALATION PRN (11:37)
--- NOTE | 2020-11-28 15:25 | CDI ---
Documentation Clarification Form Date: 11/28/2020 02:46:51 PM From: Mirian Avelar RN CCDS Admit Date: 11/26/2020 05:12:00 PM Patient Name: Gisela Harman Visit Number: [id number] Discharge Date: ATTENTION: The Clinical Documentation Specialists (CDI) and [facility] Coding Staff appreciate your assistance in clarifying documentation. Please respond to the clarification below the line at the bottom and electronically sign. The CDI & [facility] Coding staff will review the response and follow-up if needed. Please note: Queries are made part of the Legal Health Record. If you have any questions, please contact the author of this message via ITS. Dr. Susan Virk, Sepsis is documented Neurology Consult, date, but is not noted in subsequent documentation. Clarification is requested. History/Risk Factors: 85-year-old female presents to the ED with generalized weakness worsening mental status and increased somnolence. Medical History: Atrial Fibrillation, CAD, CHF, Renal disease and COPD. 01/28, H&P. Clinical Indicators: VSS: 11/26 B/P 87/55, HR 105, Temp 98.4 F Rectal, SpO2 95% 4L nasal cannula. Labs: 11/27 Wbc 7.3, Lymphocytes 0.8, Lactic acid 0.8, UA Leukocyte esterase large, Wbc >182. Urine Culture: 11/28 No growth after 18 hours. Treatment: 11/26 Ceftriaxone 1gm IVPB x 1; 11/27 Ceftriaxone 1gm IVPB Q24HR continued. IV Fluids: 11/26 0.9ns 500cc bolus x 2; 11/26 0.9ns 130cc/hr Q7H42M x 1. Please clarify if the Sepsis is: [ ] Sepsis confirmed, remains under treatment [ ] Sepsis ruled out [ ] Other condition, please specify [ ] Unable to determine (Template Last Revised: July 2020) Sepsis ruled out MTDD
--- NOTE | 2020-11-28 17:34 | EEG ---
ELECTROENCEPHALOGRAM REPORT DATE OF SERVICE: 11/28/2020. HISTORY: This is an 85-year-old woman with altered mental status. This video EEG is obtained to evaluate for seizure and epileptiform activity. RELEVANT MEDICATION: The patient is not on any antiepileptic drugs. EEG TYPE: A routine 21-channel EEG is performed with video using the 10/20 electrode placement system. DESCRIPTION: Wakefulness and drowsiness are obtained. During awake state, the background consists of brief low to moderate voltage nonrhythmic 6-7 hertz that is poorly modulate and poorly sustained. While during unawake state, the background consists of delta intermixed with theta activity. There is no physiological stage II architecture. There is no focal slowing. Interictal and ictal is none. ACTIVATION PROCEDURE: Photic stimulation did not evoke a posterior driving response. There is no abnormality during photic stimulation. Hyperventilation is not performed. EEG DIAGNOSIS: This is an abnormal routine EEG. The background slowing is suggestive of moderate to severe encephalopathy. There are no focal slowing, epileptiform discharge or seizure on the EEG. Clinical correlation is recommended. MANOJ / FAYEN: [id number] / MTDD
[2020-11-28] MEDS: SODIUM CHLORIDE 0.9% 1,000 ML IV SCH (20:08)
[2020-11-28] MEDS: GABAPENTIN 300 MG CAP PO SCH (20:09)
[2020-11-28] MEDS: FOLIC ACID 1 MG TAB PO SCH (20:09)
[2020-11-28] MEDS: MONTELUKAST 10 MG TAB PO SCH (20:09)
[2020-11-28] MEDS: ESCITALOPRAM 10 MG TAB PO SCH (20:09)
[2020-11-29] MEDS: PANTOPRAZOLE 40 MG TABLET PO SCH (06:40)
--- NOTE | 2020-11-29 07:19 | XR ---
EXAMINATION TYPE: XR chest 1V DATE OF EXAM: 11/29/2020 COMPARISON: 11/26/2020 HISTORY: Shortness of breath TECHNIQUE: Single frontal view of the chest is obtained. FINDINGS AND IMPRESSION: Hyperinflated lungs with flattening of the diaphragm suggests COPD/emphysema no significant change. Pulmonary vascular congestion with enlargement of the cardiomediastinal silhouette and sternotomy wir es. Bibasilar opacities again demonstrated, pneumonic infiltrates cannot be entirely excluded. Bibasilar atelectasis. Small left and moderate right size right pleural effusion increased in the interval. Degenerative changes in the spine with osteopenia.
[2020-11-29] MEDS ORDERED: allopurinoL 100 MG TAB PO SCH (09:00)
[2020-11-29] MEDS: ISOSORBIDE MONONITRATE ER 30 MG TAB.ER.24H PO SCH (09:17)
[2020-11-29] MEDS: ASPIRIN 325 MG TAB PO SCH (09:17)
[2020-11-29] MEDS: CYANOCOBALAMIN 500 MCG TAB PO SCH (09:17)
[2020-11-29] MEDS ORDERED: FUROSEMIDE 10 MG/ML 10 ML VIAL IV STA (09:25)
--- NOTE | 2020-11-29 09:26 | P.PN ---
Subjective Patient is seen in follow for acute kidney injury on chronic kidney disease. Currently on 4 L is cannula. Does admit to shortness of breath. Blood pressure in the lower side. Urine output about 250 mL in the last 24 hours. Vital signs are stable. Blood pressure on the lower side. General: The patient appeared well nourished and normally developed. HEENT: Head exam is unremarkable. Neck is without jugular venous distension. LUNGS: Breath sounds decreased. HEART: Rate and Rhythm are regular. ABDOMEN: Soft, no distention. EXTREMITITES: No edema. Objective - Vital Signs Vital signs: Vital Signs Temp 97.5 F L 11/29/20 09:11 Pulse 102 H 11/29/20 09:11 Resp 20 11/29/20 09:11 BP 88/57 11/29/20 09:11 Pulse Ox 96 11/29/20 09:11 Intake & Output 11/28/20 11/29/20 11/29/20 18:59 06:59 18:59 Intake Total 850 100 120 Output Total 150 100 Balance 700 0 120 Weight 82.5 kg Intake: IV 560 .9 560 Intake, IV Titration 50 Amount cefTRIAXone 1 gm In 50 Sodium Chloride 0.9% 50 ml @ 100 mls/hr IVPB Q24HR [facility] Rx#:[id number] Oral 240 100 120 Output: Urine 150 100 Other: Voiding Method Indwelling Catheter Indwelling Catheter # Voids 0 # Bowel Movements 0 - Labs CBC & Chem 7: 11/28/20 07:14 11/28/20 07:14 Labs: Microbiology - Last 24 Hours (Table) 11/26/20 19:03 Blood Culture - Preliminary Blood No Growth after 48 hours 11/27/20 11:20 Urine Culture - Final Urine,Voided Assessment and Plan Plan: Assessment: 1. Acute kidney injury secondary to ATN secondary todiuresis. Creatinine 2.39 as of yesterday. Ultrasound from last month revealed small left kidney. No evidence of hydronephrosis was noted. 2. Chronic kidney disease stage IV with baseline creatinine near 2 secondary to nephrosclerosis and cardiorenal syndrome. 3. Chronic systolic CHF with ejection fraction of 45-50% with mitral and tric uspid regurgitation. 4. Anemia of chronic kidney disease maintained on Aranesp. 5. UTI maintained on antibiotics. 6. Volume overload. Plan: Hep-Lock IV fluids. Maintain Welsh catheter. Strict is and os. Follow-up cultures. Avoid nephrotoxins. Continue to monitor renal function and urine output. Lasix 80 mg IV once today. Continue to assess daily for need for renal replacement therapy. Morning labs pending.
[2020-11-29] MEDS: METOPROLOL TARTRATE 50 MG TAB PO SCH ×2 (09:53→22:15)
[2020-11-29] MEDS: SODIUM CHLORIDE 0.9% 1,000 ML IV SCH (10:37)
[2020-11-29 11:34] LABS: Albumin 3.7 g/dL (3.5-5.0); Calcium 9.1 mg/dL (8.4-10.2); Magnesium 2.6 mg/dL (1.6-2.3); Potassium 5.5 mmol/L (3.5-5.1); Total Bilirubin 0.2 mg/dL (0.2-1.3); Total Protein 6.3 g/dL (6.3-8.2)
[2020-11-29 11:38] LABS: Anisocytosis Slight; Basophils # (A) 0.1 k/uL (0-0.2); Basophils % (A) 1 %; Eosinophils # (A) 0.1 k/uL (0-0.7); Eosinophils % (A) 2 %; HCT 34.7 % (34.0-46.0); Hypochromasia Marked; Lymphocytes # (A) 0.7 k/uL (1.0-4.8); Lymphocytes % (A) 9 %; MCH 27.5 pg (25.0-35.0); MCHC 25.8 g/dL (31.0-37.0); MCV 106.6 fL (80.0-100.0); Macrocytosis Marked; Mean Platelet Volume 8.2; Monocytes # (A) 0.2 k/uL (0-1.0); Monocytes % (A) 3 %; Neutrophils # (A) 6.4 k/uL (1.3-7.7); Neutrophils % (A) 84 %; Platelet Count 158 k/uL (150-450); RBC 3.25 m/uL (3.80-5.40); RDW 18.3 % (11.5-15.5); WBC 7.5 k/uL (3.8-10.6)
--- NOTE | 2020-11-29 12:13 | P.PN ---
Subjective Progress Note Date: 11/29/20 Patient seen at bedside and she is accompanied by her daughter and son. Her family members stated that patient has been declining for the past 4-5 months, having UTI, mentation declining and they felt her speech at time garlbed and times ok. Since she's been the hospital she had no leukocytosis. No fevers. There is slight worsening of her creatinine from 2.362 2.39. Potassium has the improved. Objective - Vital Signs Vital signs: Vital Signs Temp 97.5 F L 11/29/20 09:11 Pulse 102 H 11/29/20 09:11 Resp 20 11/29/20 09:11 BP 93/59 11/29/20 10:30 Pulse Ox 96 11/29/20 09:11 Intake & Output 11/28/20 11/29/20 11/29/20 18:59 06:59 18:59 Intake Total 850 100 120 Output Total 150 100 Balance 700 0 120 Weight 82.5 kg Intake: IV 560 .9 560 Intake, IV Titration 50 Amount cefTRIAXone 1 gm In 50 Sodium Chloride 0.9% 50 ml @ 100 mls/hr IVPB Q24HR [facility] Rx#:[id number] Oral 240 100 120 Output: Urine 150 100 Other: Voiding Method Indwelling Catheter Indwelling Catheter Indwelling Catheter # Voids 0 # Bowel Movements 0 - Exam GENERAL: The patient is an obese woman lying in bed and is not in acute distress. NEUROLOGICAL: Higher mental function: The patient is drowsy but is awakeable to verbal stimuli. She stated her name correctly and following simple commands (thumbs up on both side and sticking her tongue out to command) again. She seems to have garbled speech. Otherwise did limited communication. Cranial nerves: The pupils are round, equal and reactive to light. EOM intact and tracking throughout the room. No facial weakness. Sticking her tongue out without difficulty. Rest of cranial nerves could not be assessed because of her cooperation. Motor: Gait is deferred because of her condition. The strength is limited because of her cooperation. On command she is able to lift right upper extremity above gravity but did not to left. But than later she lifted the left upper extremity. Is lifting both lower extremities above gravity briefly. I felt she is moving more spontaneously the right than left to command but then would lift left side. Normal tone and bulk otherwise. Cerebellum: Could not assess. Sensation: Hard to assess. Reflexes (right/left): 1+ throughout. Plantars are mute bilaterally. IMAGING/OTHER TESTS: CT of the head is reported as age-related atrophic and chronic small vessel isch emic change without acute intracranial process seen at this time. I personally could not review the CT of the head because of a problem with the system. Routine EEG on 11/28/2020: Is an abnormal routine EEG. The back was slowing suggestive of moderate to severe encephalopathy. There are no focal slowing, epileptiform discharges or seizure on the EEG. - Labs CBC & Chem 7: 11/28/20 07:14 11/29/20 09:55 Labs: Microbiology - Last 24 Hours (Table) 11/26/20 19:03 Blood Culture - Preliminary Blood No Growth after 48 hours 11/27/20 11:20 Urine Culture - Final Urine,Voided Assessment and Plan Assessment: * Altered mental status likely due to toxic metabolic encephalopathy (with Acute on chronic Kidney insuffiency) and possibly underlying UTI.--per nurse her mentation is fluctuating (Delerium) * Regarding her garbled speech and her moving the right side >left side (but inconsistent) is concern for stroke * Hypotension. Possibly concerning for sepsis for acute UTI. * Probable cognitive impairments/dementia (since on last note by our team it was mention her mentation has been declining for the past two years) * Acute on chronic kidney insufficiency--minimally trending up * Anemia * Elevated troponin--trending down * Hyperkalemia---resolved * History of Vitamin B12 deficiency and folate deficiency reported * Atrial fibrillation not on anticogulation Plan: Regarding her garbled speech and her moving the right side >left side (but inconsistent) is concern for stroke, the family does not want to purse an MRI or further investigation at this time and want to see if treatment of UTI clears her symptoms. Placed on Q4 hour neuro-checks. She is continued on the vitamin B12 1000 g daily and folic acid of 1 mg daily. Cardiology is on board. Regarding the use of anticoagulation for atrial fibrilation, will defer the management to the primary team/GI team if safe to do so. Otherwise were defer the rest of the medical management to the primary team. The plan is discussed with the patient's nurse. Will follow-up with the patient sporadically. Dr. Villalpando will take over neurological service on 12/01/2020 in AM. Henry Ogden MD Neuro-Hospitalist Time with Patient: Less than 30
[2020-11-29] MEDS: MIDODRINE 5 MG TAB PO SCH ×2 (12:58→17:22)
[2020-11-29] MEDS ORDERED: SODIUM POLYSTYRENE SULFONATE 15 GM/60 ML BOTTLE PO STA (13:27)
[2020-11-29] MEDS ORDERED: SODIUM BICARB 8.4% 50 ML SYR (1 MEQ/ML) IV STA (14:38)
[2020-11-29] MEDS ORDERED: DEXTROSE 50% SYRINGE 50 ML IVP STA (14:44)
[2020-11-29] MEDS ORDERED: INSULIN REGULAR 100 UNIT/ML VIAL (IV) IV ONE (15:00)
--- NOTE | 2020-11-29 15:24 | P.PN ---
Subjective Progress Note Date: 11/29/20 Gisela Harman, is an 85 year old female who presented to [facility] emergency room with a chief complaint of generalized weakness and worsening mental status with increased somnolence He was evaluated in the emergency room vital examination on presentation revealed a temperature of 98.4 pulse 105 respiration 16 blood pressure 87/55 pulse ox 95% on 4 L nasal cannula Laboratory data reveals a white blood count of 7.3 hemoglobin 9.1 platelet count 180 sodium 139 potassium 6.0 chloride 105 CO2 28 BUN 68 creatinine 2.49 magnesium was elevated at 2.8 troponin was elevated at 0.257, urine analysis revealed evidence of urinary tract infection. Testing in the emergency room, computed tomography scan of the brain without contrast was done and revealed age related atrophic and chronic small vessel ischemic changes without acute intracranial process, chest x-ray was done and revealed features of congestive heart failure that has improved since last admission, EKG was done and revealed evidence of atrial fibrillation with right bundle branch block and T-wave abnormality in the inferior leads Patient was admitted to medical floor for further evaluation and treatment. Past medical history is significant for history of hypertension, history of coronary artery disease, history of chronic kidney disease stage IV, history of anemia, history of atrial fibrillation, patient is not on anticoagulation due to recurrent falls, history of chronic systolic congestive heart failure with eje ction fraction of 45-50%, history of valvular heart disease with moderate to severe mitral regurgitation and tricuspid regurgitation On review of systems patient is somnolent, responsive, she opens her eyes and answer 1 or 2 questions by yes or no and then closes her eyes again, in general she is denying any chest pain no shortness of breath no abdominal pain no vomiting no diarrhea and no urinary symptoms. On 11/28/2020 patient remains somnolent. Patient remains on IV Rocephin for urinary tract infection urine culture ordered. Cardiology and neurology services have been consulted. Current temp 98.1. Heart rate 124. Respiratory rate 18, blood pressure 96/57 patient remains on 4 L with a pulse ox of 97%. On 11/29/2020 patient was seen and examined on the medical floor she is somnole nt responsive in no apparent distress she has tachycardia and hypotension, urine analysis still showing significant urinary tract infection, urine culture is negative most likely because patient received first dose of antibiotic in the emergency room before sending urine for culture, patient's mental status is not improving, possibility of stroke is entertained, patient is seen by neurology, computed tomography scan of the brain is negative, family are not interested in pursuing an MRI at this point, at this time I would continue with same antibiotic, I would consult infectious disease, Objective - Vital Signs Vital signs: Vital Signs Temp 97.8 F 11/29/20 12:51 Pulse 104 H 11/29/20 12:51 Resp 20 11/29/20 12:51 BP 91/55 11/29/20 12:51 Pulse Ox 97 11/29/20 12:51 Intake & Output 11/28/20 11/29/20 11/29/20 18:59 06:59 18:59 Intake Total 850 100 240 Output Total 150 100 Balance 700 0 240 Weight 82.5 kg Intake: IV 560 .9 560 Intake, IV Titration 50 Amount cefTRIAXone 1 gm In 50 Sodium Chloride 0.9% 50 ml @ 100 mls/hr IVPB Q24HR [facility] Rx#:[id number] Oral 240 100 240 Output: Urine 150 100 Other: Voiding Method Indwelling Catheter Indwelling Catheter Indwelling Catheter # Voids 0 # Bowel Movements 0 - Exam In general patient is somnolent responsive in no apparent distress HEENT head normocephalic and atraumatic Neck is supple no JVD no goiter no lymphadenopathy no carotid bruit Chest examination is clear to auscultation no crackles no wheezing Cardiac exam reveals irregular heart sounds S1 and S2 no gallops no murmurs Abdomen is soft nontender no organomegaly with normal bowel sounds Extremity exam reveals no edema no cyanosis or clubbing Neurological examination reveals no gross focal deficits - Labs CBC & Chem 7: 11/29/20 09:55 11/29/20 09:55 Labs: Abnormal Lab Results - Last 24 Hours (Table) 11/29/20 11/29/20 Range/Units 09:55 09:55 RBC 3.25 L (3.80-5.40) m/uL Hgb 9.0 L (11.4-16.0) gm/dL MCV 106.6 H (80.0-100.0) fL MCHC 25.8 L (31.0-37.0) g/dL RDW 18.3 H (11.5-15.5) % Macrocytosis Marked A Potassium 5.5 H (3.5-5.1) mmol/L Chloride 111 H (98-107) mmol/L Carbon Dioxide 20 L (22-30) mmol/L BUN 67 H (7-17) mg/dL Creatinine 2.85 H (0.52-1.04) mg/dL Glucose 117 H (74-99) mg/dL Magnesium 2.6 H (1.6-2.3) mg/dL Microbiology - Last 24 Hours (Table) 11/26/20 19:03 Blood Culture - Preliminary Blood No Growth after 48 hours 11/27/20 11:20 Urine Culture - Final Urine,Voided Assessment and Plan Plan: Generalized weakness with mental status changes likely related to metabolic encephalopathy Urinary tract infection patient was started on IV Rocephin urine culture requested results are still pending Elevated troponin level cardiology consultation was requested Acute on chronic renal failure, baseline creatinine 1.9-2 Underlying history of atrial fibrillation, patient is not on any anticoagulation due to recurrent falls Underlying history of hypertension Underlying history of chronic systolic congestive heart failure Underlying history of chronic anemia Electrolyte imbalance with hyperkalemia and hypermagnesemia patient given a dose of Kayexalate yesterday will recheck labs this a.m. Plan At this time patient is admitted to telemetry floor Serial EKG and cardiac enzymes ordered She was started on IV Rocephin for urinary tract infection Cardiology consultation was requested in that regard to elevated troponin level Will monitor kidney function closely and treat the electrolyte imbalance as needed Prognosis is guarded Will follow during this admission Family is requesting neurology evaluation to assess reason for mental status changes and to assess degree of underlying dementia
[2020-11-29] MEDS ORDERED: ENOXAPARIN 40 MG/0.4 ML SYRINGE SQ SCH (15:45)
[2020-11-29 16:43] LABS: Glucose,Whole Blood 153 mg/dL (75-99)
[2020-11-29] MEDS ORDERED: MORPHINE SULFATE 4 MG/ML SYRINGE IV PRN (21:30)
[2020-11-29] MEDS ORDERED: ONDANSETRON 4 MG/2 ML VIAL IVP PRN (21:30)
[2020-11-29] MEDS ORDERED: ATROPINE OPHTH SOLN 1% 5ML BTL SUBLINGUAL PRN (22:00)
[2020-11-29] MEDS ORDERED: MORPHINE SULFATE (100 MG/2 ML) 100 MG in SODIUM CHLORIDE 0.9% 100 ML IV SCH (22:00)
[2020-11-29] MEDS ORDERED: SCOPOLAMINE 1.5MG/72HR PATCH TRANSDERM SCH (22:00)
[2020-11-29] MEDS: FOLIC ACID 1 MG TAB PO SCH (22:14)
[2020-11-29] MEDS: ESCITALOPRAM 10 MG TAB PO SCH (22:14)
[2020-11-29] MEDS: MONTELUKAST 10 MG TAB PO SCH (22:15)
[2020-11-29] MEDS: GABAPENTIN 300 MG CAP PO SCH (22:15)
[2020-11-30 02:31] VITALS: TEMP 94.7
[2020-11-30 05:07] VITALS: BP 61/40
[2020-11-30] MEDS ORDERED: DARBEPOETIN ALFA 40 MCG/0.4 ML SYRINGE SQ SCH (09:00)
[2020-11-30 09:21] VITALS: RESP 12
--- NOTE | 2020-11-30 10:18 | P.PN ---
Subjective Progress Note Date: 11/30/20 Gisela Harman, is an 85 year old female who presented to [facility] emergency room with a chief complaint of generalized weakness and worsening mental status with increased somnolence He was evaluated in the emergency room vital examination on presentation revealed a temperature of 98.4 pulse 105 respiration 16 blood pressure 87/55 pulse ox 95% on 4 L nasal cannula Laboratory data reveals a white blood count of 7.3 hemoglobin 9.1 platelet count 180 sodium 139 potassium 6.0 chloride 105 CO2 28 BUN 68 creatinine 2.49 magnesium was elevated at 2.8 troponin was elevated at 0.257, urine analysis revealed evidence of urinary tract infection. Testing in the emergency room, computed tomography scan of the brain without contrast was done and revealed age related atrophic and chronic small vessel ischemic changes without acute intracranial process, chest x-ray was done and revealed features of congestive heart failure that has improved since last admission, EKG was done and revealed evidence of atrial fibrillation with right bundle branch block and T-wave abnormality in the inferior leads Patient was admitted to medical floor for further evaluation and treatment. Past medical history is significant for history of hypertension, history of coronary artery disease, history of chronic kidney disease stage IV, history of anemia, history of atrial fibrillation, patient is not on anticoagulation due to recurrent falls, history of chronic systolic congestive heart failure with eje ction fraction of 45-50%, history of valvular heart disease with moderate to severe mitral regurgitation and tricuspid regurgitation On review of systems patient is somnolent, responsive, she opens her eyes and answer 1 or 2 questions by yes or no and then closes her eyes again, in general she is denying any chest pain no shortness of breath no abdominal pain no vomiting no diarrhea and no urinary symptoms. On 11/28/2020 patient remains somnolent. Patient remains on IV Rocephin for urinary tract infection urine culture ordered. Cardiology and neurology services have been consulted. Current temp 98.1. Heart rate 124. Respiratory rate 18, blood pressure 96/57 patient remains on 4 L with a pulse ox of 97%. On 11/29/2020 patient was seen and examined on the medical floor she is somnole nt responsive in no apparent distress she has tachycardia and hypotension, urine analysis still showing significant urinary tract infection, urine culture is negative most likely because patient received first dose of antibiotic in the emergency room before sending urine for culture, patient's mental status is not improving, possibility of stroke is entertained, patient is seen by neurology, computed tomography scan of the brain is negative, family are not interested in pursuing an MRI at this point, at this time I would continue with same antibiotic, I would consult infectious disease, On 11/30/2020 patient had decline in status last night with decrease alertness and decrease in blood pressure. It was decided per family to move forward with comfort care measures only. Patient is currently resting comfortably in bed does not appear in distress. Patient currently on morphine drip. Family is at bedside QUESTIONS answered Objective - Vital Signs Vital signs: Vital Signs Temp 94.7 F L 11/29/20 20:00 Pulse 87 11/30/20 09:17 Resp 12 11/30/20 09:17 BP 61/40 11/30/20 03:40 Pulse Ox 92 L 11/30/20 09:17 Intake & Output 11/29/20 11/30/20 11/30/20 18:59 06:59 18:59 Intake Total 480 0 Output Total 25 5 Balance 455 -5 Intake: Oral 480 0 Output: Urine 25 5 Other: Voiding Method Indwelling Catheter Indwelling Catheter # Voids 0 - Exam In general patient is somnolent responsive in no apparent distress HEENT head normocephalic and atraumatic Neck is supple no JVD no goiter no lymphadenopathy no carotid bruit Chest examination is clear to auscultation no crackles no wheezing Cardiac exam reveals irregular heart sounds S1 and S2 no gallops no murmurs Abdomen is soft nontender no organomegaly with normal bowel sounds Extremity exam reveals no edema no cyanosis or clubbing Neurological a and O 0 lethargic - Labs CBC & Chem 7: 11/29/20 09:55 11/29/20 17:42 Labs: Abnormal Lab Results - Last 24 Hours (Table) 11/29/20 11/29/20 11/29/20 Range/Units 09:55 09:55 16:41 RBC 3.25 L (3.80-5.40) m/uL Hgb 9.0 L (11.4-16.0) gm/dL MCV 106.6 H (80.0-100.0) fL MCHC 25.8 L (31.0-37.0) g/dL RDW 18.3 H (11.5-15.5) % Lymphocytes # 0.7 L (1.0-4.8) k/uL Macrocytosis Marked A Potassium 5.5 H (3.5-5.1) mmol/L Chloride 111 H (98-107) mmol/L Carbon Dioxide 20 L (22-30) mmol/L BUN 67 H (7-17) mg/dL Creatinine 2.85 H (0.52-1.04) mg/dL Glucose 117 H (74-99) mg/dL POC Glucose (mg/dL) 153 H (75-99) mg/dL Magnesium 2.6 H (1.6-2.3) mg/dL Microbiology - Last 24 Hours (Table) 11/26/20 19:03 Blood Culture - Preliminary Blood No Growth after 72 hours Assessment and Plan Plan: Generalized weakness with mental status changes likely related to metabolic encephalopathy Urinary tract infection patient was started on IV Rocephin urine culture requested results are still pending Elevated troponin level cardiology consultation was requested Acute on chronic renal failure, baseline creatinine 1.9-2 Underlying history of atrial fibrillation, patient is not on any anticoagulation due to recurrent falls Underlying history of hypertension Underlying history of chronic systolic congestive heart failure Underlying history of chronic anemia Electrolyte imbalance with hyperkalemia and hypermagnesemia patient given a dose of Kayexalate yesterday will recheck labs this a.m. Plan Patient has been made comfort care measures only per family request Continue morphine drip for comfort
[2020-11-30 12:57] VITALS: PULSE 82
--- NOTE | 2020-12-03 11:47 | P.DS ---
Providers Date of admission: 11/26/20 17:12 Expected date of discharge: 11/30/20 Attending physician: Susan Virk Consults: 11/27/20 16:57 Consult Physician Routine Consulting Provider: Gricel Villalpando Consult Reason/Comments: Mental status changes Do you want consulting provider notified?: Yes 11/28/20 10:09 Consult Physician Routine Consulting Provider: Marta Marshall Consult Reason/Comments: acute on chronic kidney disease Do you want consulting provider notified?: Yes 11/29/20 14:29 Consult Physician Routine Consulting Provider: Holly Orozco Consult Reason/Comments: UTI Do you want consulting provider notified?: Yes Primary care physician: Susan Virk [facility] Course: Discharge diagnosis Generalized weakness with mental status changes likely related to metabolic encephalopathy Urinary tract infection patient was started on IV Rocephin urine culture requested results are still pending Elevated troponin level cardiology consultation was requested Acute on chronic renal failure, baseline creatinine 1.9-2 Underlying history of atrial fibrillation, patient is not on any anticoagulation due to recurrent falls Underlying history of hypertension Underlying history of chronic systolic congestive heart failure Underlying history of chronic anemia Electrolyte imbalance with hyperkalemia and hypermagnesemia patient given a dose of Kayexalate yesterday will recheck labs this a.m. Hospital course Gisela Harman, is an 85 year old female who presented to [facility] emergency room with a chief complaint of generalized weakness and worsening mental status with increased somnolence He was evaluated in the emergency room vital examination on presentation revealed a temperature of 98.4 pulse 105 respiration 16 blood pressure 87/55 pulse ox 95% on 4 L nasal cannula Laboratory data reveals a white blood count of 7.3 hemoglobin 9.1 platelet count 180 sodium 139 potassium 6.0 chloride 105 CO2 28 BUN 68 creatinine 2.49 magnesium was elevated at 2.8 troponin was elevated at 0.257, urine analysis revealed evidence of urinary tract infection. Testing in the emergency room, computed tomography scan of the brain without contrast was done and revealed age related atrophic and chronic small vessel ischemic changes without acute intracranial process, chest x-ray was done and revealed features of congestive heart failure that has improved since last admission, EKG was done and revealed evidence of atrial fibrillation with right bundle branch block and T-wave abnormality in the inferior leads Patient was admitted to medical floor for further evaluation and treatment. Past medical history is significant for history of hypertension, history of coronary artery disease, history of chronic kidney disease stage IV, history of anemia, history of atrial fibrillation, patient is not on anticoagulation due to recurrent falls, history of chronic systolic congestive heart failure with ejection fraction of 45-50%, history of valvular heart disease with moderate to severe mitral regurgitation and tricuspid regurgitation On review of systems patient is somnolent, responsive, she opens her eyes and answer 1 or 2 questions by yes or no and then closes her eyes again, in general she is denying any chest pain no shortness of breath no abdominal pain no vomiting no diarrhea and no urinary symptoms. On 11/28/2020 patient remains somnolent. Patient remains on IV Rocephin for urinary tract infection urine culture ordered. Cardiology and neurology services have been consulted. Current temp 98.1. Heart rate 124. Respiratory rate 18, blood pressure 96/57 patient remains on 4 L with a pulse ox of 97%. On 11/29/2020 patient was seen and examined on the medical floor she is somn olent responsive in no apparent distress she has tachycardia and hypotension, urine analysis still showing significant urinary tract infection, urine culture is negative most likely because patient received first dose of antibiotic in the emergency room before sending urine for culture, patient's mental status is not improving, possibility of stroke is entertained, patient is seen by neurology, computed tomography scan of the brain is negative, family are not interested in pursuing an MRI at this point, at this time I would continue with same antibiotic, I would consult infectious disease, On 11/30/2020 patient had decline in status last night with decrease alertness and decrease in blood pressure. It was decided per family to move forward with comfort care measures only. Patient is currently resting comfortably in bed does not appear in distress. Patient currently on morphine drip. Family is at bedside QUESTIONS answered Patient on 11/30/2020 Plan - Discharge Summary Discharge Rx Participant: No New Discharge Prescriptions: No Action allopurinoL [Zyloprim] 300 mg PO HS@2100 Escitalopram [Lexapro] 10 mg PO HS@2100 Isosorbide Mononitrate [Isosorbide Mononitrate ER] 30 mg PO DAILY@0900 metOLazone [Zaroxolyn] 2.5 mg PO DAILY@0900 Gabapentin [Neurontin] 300 mg PO HS@2100 Ipratropium-Albuterol Nebulize [Duoneb 0.5 mg-3 mg/3 ml Soln] 3 ml INHALATION RT-Q4H PRN ml PRN Reason: Dyspnea Furosemide [Lasix] 40 mg PO DAILY@0600 Montelukast [Singulair] 10 mg PO HS@2099 Metoprolol Tartrate [Lopressor] 50 mg PO BID@899,2099 Potassium Chloride ER [K-Dur 20] 20 meq PO BID@899,2099 Acetaminophen Tab [Tylenol] 650 mg PO Q6HR PRN tab PRN Reason: Mild Pain Or Fever > 100.5 Cyanocobalamin (Vitamin B-12) [Vitamin B-12] 1,000 mcg PO DAILY@899 Darbepoetin Yosi [Aranesp] 40 mcg SQ GARRIDO Folic Acid 1 mg PO HS@2099 Pantoprazole [Protonix] 40 mg PO DAILY@06 acetaZOLAMIDE [Diamox] 250 mg PO BID@0600,1400 Discharge Medication List Escitalopram [Lexapro] 10 mg PO HS@209907/20/18 [History] allopurinoL [Zyloprim] 300 mg PO HS@209907/20/18 [History] Isosorbide Mononitrate [Isosorbide Mononitrate ER] 30 mg PO DAILY@89910/22/18 [History] metOLazone [Zaroxolyn] 2.5 mg PO DAILY@89910/22/18 [History] Gabapentin [Neurontin] 300 mg PO HS@209910/28/20 [History] Potassium Chloride ER [K-Dur 20] 20 meq PO BID@899,209910/28/20 [History] Acetaminophen Tab [Tylenol] 650 mg PO Q6HR PRN tab 11/10/20 [Rx] Ipratropium-Albuterol Nebulize [Duoneb 0.5 mg-3 mg/3 ml Soln] 3 ml INHALATION RT-Q4H PRN ml 11/10/20 [Rx] Cyanocobalamin (Vitamin B-12) [Vitamin B-12] 1,000 mcg PO DAILY@0900 11/26/20 [History] Darbepoetin Yosi [Aranesp] 40 mcg SQ GARRIDO 11/26/20 [History] Folic Acid 1 mg PO HS@209911/26/20 [History] Furosemide [Lasix] 40 mg PO DAILY@0611/26/20 [History] Metoprolol Tartrate [Lopressor] 50 mg PO BID@09,209911/26/20 [History] Montelukast [Singulair] 10 mg PO HS@209911/26/20 [History] Pantoprazole [Protonix] 40 mg PO DAILY@0611/26/20 [History] acetaZOLAMIDE [Diamox] 250 mg PO BID@0600,1400 11/26/20 [History] Follow up Appointment(s)/Referral(s): Susan Virk MD [Primary Care Provider] - 1-2 days Discharge Disposition: - Preliminary Cause of Preliminary Cause of : Chronic renal disease, dementia
== END 2020-11-30 18:29 | disposition expired | DRG 689 ==
LOC: EC 14:32 → 3SCARD 17:12 → 4SSUR 11-30 15:47
PROVIDERS: ADMIT Internal Medicine; ATTEND Internal Medicine
DX: N39.0 Urinary tract infection, site not specified (principal); N17.0 Acute kidney failure with tubular necrosis; G92 Toxic encephalopathy; I48.19 Other persistent atrial fibrillation; I50.42 Chronic combined systolic (congestive) and diastolic (congestive) heart failure; J96.11 Chronic respiratory failure with hypoxia; N18.4 Chronic kidney disease, stage 4 (severe); I42.9 Cardiomyopathy, unspecified; I13.0 Hypertensive heart and chronic kidney disease with heart failure and stage 1 through stage 4 chronic kidney disease, or unspecified chronic kidney disease; R62.7 Adult failure to thrive; D63.1 Anemia in chronic kidney disease; G31.89 Other specified degenerative diseases of nervous system; E87.70 Fluid overload, unspecified; M10.9 Gout, unspecified; I25.10 Atherosclerotic heart disease of native coronary artery without angina pectoris; I27.20 Pulmonary hypertension, unspecified; I25.2 Old myocardial infarction; J44.9 Chronic obstructive pulmonary disease, unspecified; N27.0 Small kidney, unilateral; F03.90 Unspecified dementia, unspecified severity, without behavioral disturbance, psychotic disturbance, mood disturbance, and anxiety; Z51.5 Encounter for palliative care; E53.8 Deficiency of other specified B group vitamins; S00.83XA Contusion of other part of head, initial encounter; R29.6 Repeated falls; R41.89 Other symptoms and signs involving cognitive functions and awareness; Z66 Do not resuscitate; K21.9 Gastro-esophageal reflux disease without esophagitis; G62.9 Polyneuropathy, unspecified; M54.42 Lumbago with sciatica, left side; M54.41 Lumbago with sciatica, right side; Z20.822 Contact with and (suspected) exposure to COVID-19; I45.10 Unspecified right bundle-branch block; E03.9 Hypothyroidism, unspecified; E86.0 Dehydration; E78.5 Hyperlipidemia, unspecified; E87.5 Hyperkalemia; F41.9 Anxiety disorder, unspecified; F32.9 Major depressive disorder, single episode, unspecified; E83.41 Hypermagnesemia; Z95.5 Presence of coronary angioplasty implant and graft; Z95.1 Presence of aortocoronary bypass graft; Z90.710 Acquired absence of both cervix and uterus; Z79.899 Other long term (current) drug therapy; Z79.890 Hormone replacement therapy; Z87.19 Personal history of other diseases of the digestive system
CPT/HCPCS: 36415; 70450; 71045; 71046; 80053; 80061; 81001; 82550; 83540; 83550; 83605; 83735; 84132; 84484; 85025; 85610; 85730; 87040; 87086; 93005; 94640; 94760; 95816; 99285